=== PATIENT | male | born 1945 | race Caucasian/White ===

== ENCOUNTER 2016-11-01 10:04 | Outpatient (RCR) | payer MEDICARE ==
--- OUTSIDE RECORDS SUMMARY | 2016-08-30 16:33 | XMS REPORT | Continuity of Care Document ---
Author Author [facility] Organization [facility] Address Unknown Phone Unavailable Care Team Providers Care Survey Operations Director Name Role Phone Sherly Sanders III PCP [phone] Source Comments Some departments are not documenting in the electronic medical record. If you do not see the information that you expected, contact Release of Information in the Health Information Management department at [phone] for further assistance in locating additional records.[facility] Active Allergies and Adverse Reactions Allergen Noted Date Severity Reactions Comments Demerol 03/02/2010 HIVES, SWELLING Morphine 03/02/2010 ANAPHYLAXIS Current Medications Prescription Sig. Disp. Refills Start End Date Status Date DOCOSAHEXANOIC ACID/EPA Take 1,200 mg by mouth Active (FISH OIL PO) twice daily. mycophenolate mofetil Take 2 Caps by mouth 120 Cap 3 12/16/19 Active (CELLCEPT) 250 mg PO Twice Daily. 11 capsule Cholecalciferol (Vitamin Take 1 Cap by mouth Twice 60 Cap 3 12/16/19 Active D3) 1,000 unit PO Cap Daily. [address](+) Take 40 mg by mouth Active (PRILOSEC) 20 mg PO daily. capsule allopurinol (ZYLOPRIM) Take 100 mg by mouth Active 100 mg tablet daily. temazepam (RESTORIL) 15 Take 15 mg by mouth at Active mg capsule bedtime as needed. tacrolimus (PROGRAF) 1 mg Take 2 mg by mouth twice Active capsule daily. oxyCODone (ROXICODONE) 5 Take 5 mg by mouth every Active mg tablet 6 hours as needed warfarin (COUMADIN) 7.5 Take 7.5 mg by mouth at Active mg tablet bedtime daily. Docusate Calcium 50 mg Take 100 mg by mouth at Active cap bedtime daily. rOPINIRole (REQUIP) 1 mg Take 1 mg by mouth at Active tablet bedtime daily. cyanocobalamin(DIL) Inject to area(s) as Active (VITAMIN B-12) 100 mcg/mL directed every 30 days. insulin detemir(+) 34 U am and 16 U pm plus 4 box 3 03/22/20 Active (LEVEMIR FLEXPEN) 100 2 units to prime pen each 14 unit/mL (3 mL) injection time. pen insulin aspart (NOVOLOG) Inject 9 units with 75 mL 3 03/22/20 Active 100 unit/mL flexPEN breakfast, 9 units with 14 lunch, and 11 units with dinner. Plus 2 for every 40 >140 Max 80. ursodiol (ACTIGALL) 300 Take 300 mg by mouth Active mg capsule every 12 hours. WARFARIN SODIUM (WARFARIN Take 0.5 mg by mouth. 0.5 Active PO) mgMon, Wed, Fri, Sat, Sun HYDROCODONE BITARTRATE PO Take 325 mg by mouth. Active other medication 1 Dose. CHAZ COMFORT get Active for feet. blood sugar diagnostic 1 Strip by Test route Active (GLUCOSE METER TEST before meals and at STRIP) test strip bedtime. pregabalin (LYRICA) 75 mg Take 100 mg by mouth Active capsule twice daily. furosemide (LASIX) 40 mg Take 1 Tab by mouth twice 60 Tab 5 03/24/20 Active tablet daily. 16 ergocalciferol (VITAMIN Take 1 Cap by mouth every 4 Cap 2 06/08/20 08/25/20 D-2) 50,000 unit capsule 7 days for 12 doses. 16 16 Active Problems Problem Noted Date Shaking spells 12/17/2015 HTN (hypertension) 11/21/2012 Last Assessment & Plan: BP is good today. No change, cont the same. Peripheral neuropathy (HCC) 11/21/2012 Last Assessment & Plan: He has only been taking his gabapentin in the am. Suggested taking another pill at bedtime. Bedtime is the time when his neuropathy pain is the worst. CPPD (pseudo-gout) 08/09/2011 Cholangitis 03/15/2011 Biliary stent obstruction 03/15/2011 CMV (cytomegalovirus infection) (HCC) 01/31/2011 Atrial fibrillation (HCC) 01/31/2011 Status post liver transplant (HCC) 12/03/2010 Liver failure (HCC) 12/02/2010 GI bleeding 04/02/2010 CKD (chronic kidney disease) 04/02/2010 Pancytopenia 04/02/2010 Coronary artery bypass surgery 04/01/2010 CAD (coronary artery disease) 04/01/2010 Hyperlipidemia with target LDL less than 70 04/01/2010 Last Assessment & Plan: Formatting of this note may be different from the original. No recent FLP in system. Per PCP? Or Cardiology? Results for [facility] ( ) as of 11/01/2013 15:31 Ref. Range 03/30/2010 07:09 Cholesterol Latest Range: <200 MG/DL 167 Triglycerides Latest Range: <150 MG/DL 176 (H) HDL Latest Range: >40 MG/DL 21 (L) LDL Latest Range: <100 MG/DL 105 (H) VLDL No range found 35 Non HDL Cholesterol No range found 146 DM (diabetes mellitus) ([facility]) 04/01/2010 Last Assessment & Plan: He stopped Lantus because it burned too bad when he injected. He is willing to try Levemir if [facility] will [facility] it. Also, increase Novolog meal base. POC: NPH 34 in am or 14 at bedtime OR Levemir 30 in the am and 12 at bedtime Novolog 9 U + correction scale 3x/day immediately after you finish eating Resolved Problems Problem Noted Date Resolved Date Sepsis(995.91) 01/31/2011 10/29/2014 PRADO (nonalcoholic steatohepatitis) 04/01/2010 11/21/2012 Most Recent Encounters Date Type Specialty Providers Description 08/30/2016 Telephone Transplant Surgery Valdemar Phillips MD Other - lab orders 08/17/2016 Scan Only Transplant Surgery Valdemar Phillips MD 07/14/2016 Orders Only Transplant Surgery Justine Reyes Liver replaced by transplant ([facility]) 07/13/2016 Orders Only Transplant Surgery Soo Callaway BSN Liver replaced by transplant ([facility]) (Primary Dx) 06/25/2016 Orders Only Transplant Surgery Batsheva Guido Disorder of bone density and structure, unspecified ; Osteoporosis screening; Vitamin D deficiency 06/22/2016 Documentation Transplant Surgery Batsheva Guido 06/22/2016 Telephone Transplant Surgery Valdemar Phillips MD Other - return call 06/17/2016 Orders Only Transplant Surgery Carlotta De La Torre Liver replaced by transplant ([facility]) 06/16/2016 Documentation Transplant Surgery Batsheva Guido 06/10/2016 Telephone Transplant Surgery Valdemar Phillips MD Other - [facility] 06/08/2016 Telephone Transplant Surgery Soo Callaway BSN Medication Dose Change 06/08/2016 Refill Transplant Surgery Soo Callaway BSN Immunizations Name Dates Previously Given Next Due Tdap Vaccine 07/02/2010 Social History Tobacco Use Types Packs/Day Years Used Date Former Smoker Cigarettes 1 40 Smokeless Tobacco: Never Used Tobacco Cessation: Counseling Given: No Comments: quit in 1999 Alcohol Use Drinks/Week oz/Week Comments No Last Filed Vital Signs Vital Sign Reading Time Taken Blood Pressure 144/71 05/10/2016 10:59 AM CDT Pulse 94 05/10/2016 10:59 AM CDT Temperature 36.7 C (98 F) 05/10/2016 10:59 AM CDT Respiratory Rate 20 05/10/2016 10:59 AM CDT Height 1.829 m (6') 05/10/2016 10:59 AM CDT Weight 112.492 kg (248 lb) 05/10/2016 10:59 AM CDT Body Mass Index 33.63 05/10/2016 10:59 AM CDT Oxygen Saturation 95% 05/10/2016 10:59 AM CDT Plan of Care Date Type Specialty Providers Description 12/21/2016 Appointment Nephrology Justina Rueda MD [address] [facility] [address] [place] [address] [phone] (Fax) 05/23/2017 Appointment Transplant Surgery Valdemar Phillips MD [address] [facility] [id number] [place] [address] [phone] (Fax) Health Maintenance Due Date Last Done Comments Shingles Vaccine 2005 Prevnar/Pneumovax (#1) 2010 Physical (Comprehensive) 08/28/2015 08/28/2014 (Previously completed), Exam 12/09/2010 Influenza Vaccine 07/15/2016 08/14/2015 Microalbumin 07/29/2016 07/29/2015, 10/31/2014, 10/31/2014 Hba1c 09/04/2016 03/05/2016, 07/28/2015, 10/29/2014 Additional history exists Dilated Eye Exam 01/12/2017 01/13/2016, 11/28/2013 (Previously completed) Foot Exam 03/05/2017 03/05/2016, 07/28/2015, 10/29/2014 Tetanus Vaccine 07/02/2020 07/02/2010 Colorectal Cancer 11/08/2020 11/08/2010 Screening Hepatitis C Screening Completed 03/30/2010, 03/30/2010, 01/01/2010 Additional history exists Pertussis Vaccine Completed 07/02/2010 Results from Last 3 Months PROTIME INR (PT) (07/12/2016 10:12 AM) Component Value Range Protime 32.9 (H) 12.2-14.7 SEC INR 3.2 (H) 0.8-1.4 Specimen Blood Narrative Outside Lab Verified by Blank Walters on 07/12/2016. BONE DENSITY SPINE/HIP (06/17/2016 11:08 AM)PHOSPHORUS (06/15/2016 2:24 PM) Component Value Range Phosphorus 3.0 2.3-4.7 MG/DL Specimen Blood Narrative Outside Lab Verified by Carlotta De La Torre on 06/17/2016. MAGNESIUM (06/15/2016 2:24 PM) Component Value Range Magnesium 1.5 (L) 1.8-2.4 MG/DL Specimen Blood Narrative Outside Lab Verified by Carlotta De La Torre on 06/17/2016. COMPREHENSIVE METABOLIC PANEL (06/15/2016 2:24 PM) Component Value Range Sodium 141 135-145 MMOL/L Potassium 4.2 3.6-5.0 MMOL/L Chloride 103 98-107 MMOL/L CO2 29 21-32 MMOL/L Anion Gap 9 5-14 MMOL/L Blood Urea Nitrogen 23 (H) 7-18 MG/DL Creatinine 1.93 (H) 0.60-1.30 MG/DL eGFR Non 34 mL/min/1.73 M2 Glucose 143 (H) 70-105 H Calcium 9.1 8.5-10.1 MG/DL Total Bilirubin 1.3 (H) 0.1-1.0 H Alk Phosphatase 87 40-136 U/L AST (SGOT) 8 5-34 U/L ALT (SGPT) 7 0-55 U/L Total Protein 6.4 6.4-8.2 G/DL Albumin 4.2 3.2-4.5 G/DL Specimen Blood Narrative Outside Lab Verified by Carlotta De La Torre on 06/17/2016. CBC AND DIFF (06/15/2016 2:24 PM) Component Value Range White Blood Cells 6.5 4.3-11.0 10^3/uL RBC 5.22 4.35-5.85 10^6/uL Hemoglobin 13.3 13.3-17.7 G/DL Hematocrit 43 40-54 MCV 83 80-99 FL MCH 26 25-34 PG MCHC 31 (L) 32-36 G/DL RDW 15.9 (H) 10.0-14.5 % Platelet Count 162 130-400 10^3/uL Neutrophils 78 (H) 42-75 % Lymphocytes 13 12-44 % Monocytes 7 0-12 % Eosinophil 1 0-10 % Basophil 1 0-10 % Absolute Neutrophil Count 5.1 1.8-7.8 Absolute Lymph Count 0.8 (L) 1.0-4.0 Absolute Monocyte Count 0.5 0.0-1.0 Absolute Eosinophil Count 0.1 0.0-0.3 10^3/uL Absolute Basophil Count 0.0 0.0-0.1 10^3/uL Specimen Blood Narrative Outside Lab Verified by Carlotta De La Torre on 06/17/2016. GGTP (06/15/2016 2:24 PM) Component Value Range GGTP 27 0-65 U/L Specimen Blood Narrative Outside Lab Verified by Carlotta De La Torre on 06/17/2016. TACROLIMUS LEVEL(FK506) (06/15/2016 2:24 PM) Component Value Range Tacrolimus 9.2 ng/mL Specimen Blood Narrative Outside Lab Verified by Carlotta De La Torre on 06/17/2016.
[2016-08-30 16:39] LABS: BASOPHILS % (AUTO) 0 % (0-10); EOSINOPHILS # (AUTO) 0.1 10^3/uL (0.0-0.3); EOSINOPHILS % (AUTO) 2 % (0-10); LYMPHOCYTES % (AUTO) 23 % (12-44); MEAN CORPUSCULAR HEMOGLOBIN 26 PG (25-34); MEAN CORPUSCULAR HGB CONC 32 G/DL (32-36); MEAN CORPUSCULAR VOLUME 82 FL (80-99); MEAN PLATELET VOLUME 10.4 FL (7.4-10.4); MONOCYTES # (AUTO) 0.4 X 10^3 (0.0-1.0); MONOCYTES % (AUTO) 9 % (0-12); NEUTROPHILS % (AUTO) 66 % (42-75); PLATELET COUNT 179 10^3/uL (130-400); RED BLOOD COUNT 5.01 10^6/uL (4.35-5.85); RED CELL DISTRIBUTION WIDTH 15.2 % (10.0-14.5); WHITE BLOOD COUNT 4.6 10^3/uL (4.3-11.0)
[2016-08-30 16:58] LABS: ALANINE AMINOTRANSFERASE < 6 U/L (0-55); ALBUMIN 4.3 G/DL (3.2-4.5); ANION GAP 10 MMOL/L (5-14); ASPARTATE AMINO TRANSFERASE 11 U/L (5-34); BILIRUBIN,TOTAL 0.8 MG/DL (0.1-1.0); BLOOD UREA NITROGEN 27 MG/DL (7-18); BUN/CREATININE RATIO 14; CALCIUM 9.5 MG/DL (8.5-10.1); CARBON DIOXIDE 31 MMOL/L (21-32); CHLORIDE 100 MMOL/L (98-107); CREATININE SERUM 1.92 MG/DL (0.60-1.30); GFR ESTIMATED 35; GLUCOSE 116 MG/DL (70-105); MAGNESIUM 1.6 MG/DL (1.8-2.4); PHOSPHORUS 3.2 MG/DL (2.3-4.7); POTASSIUM 4.2 MMOL/L (3.6-5.0); SODIUM 141 MMOL/L (135-145); TOTAL PROTEIN 6.8 G/DL (6.4-8.2)
[2016-09-01 08:09] LABS: FK506 11.9 ng/mL
[~2016-11-01 10:04] MED LIST: ACYC-109 PO; AGM875T PO; ALLP100T PO; AMLO10TA82 PO; AMLO5TAB2 PO; AMOX-355 PO; ASP81CT PO; ASP81TEC; CEFD300C3 PO; CEPH500C PO; CEPH500T PO; CHOL100011 PO; CHOL10003 PO; CHOL200035 PO; COLC0.6C3 PO; DILT240C90 PO; DOCU-161 PO; DOCU50CA2 PO; ENAL20TA; ENAL20TA PO; FERR-57 PO; FISH OIL 1,2001 EAC1 PO; FLUT9.9S NS; FURO20TA4 PO; FURO40TA4 PO; GABA-490 PO; GABA400T PO; GABA800T2 PO; GBPN400C PO; GEMF600T3; GEMF600T3 PO; GLIM4TAB; GLIM4TAB PO; HCT25T; HYDR-2890 PO; HYDR1CAP2; HYDR1TAB PO; HYDR1TAB86 PO; INSASP10V SQ; INSU100I14 SQ; INSU100I16 SQ; INSU100V16 SQ; Levofloxacin PO; MAGN400C PO; MAGN400T6 PO; METF-380; METF-380 PO; METO100T2 PO; METO50TA7; METOPROLOL PO; MTC10T; MTC5T; MTP25TSR PO; MTP50T; MTP50T PO; NADO20TA PO; NPH,100V SQ; NPH,100V11 SC; NPH,100V8 SQ; NR-TACRO1 PO; OMEG1CAP51; OMEG1CAP51 PO; OMEP-10; OMEP-10 PO; OMEP20TA2 PO; OMEP20TA33 PO; OMEP40CA36 PO; OMG1KC; OXC5T PO; OXYC-309 PO; OXYC5TAB71 PO; PRAV40TA; PRAV40TA PO; PRD5T PO; PREG100C PO; PREG75CA PO; ROPI1TAB2 PO; SENN-35 PO; SENN1TAB76 PO; SULF1TAB38 PO; TACR0.5C PO; TACR1CAP PO; TEMA15CA54 PO; TMZP15C PO; TRIA1TAB2; TRIAM; URSO250T11 PO; URSO300C3 PO; URSO300C9 PO; VIT D; WARF7.5T PO; WRF2.5T PO; WRF5T PO; [UNRECOGNIZED DRUG - CODE] PO; [UNRECOGNIZED DRUG - OTHER]; [UNRECOGNIZED DRUG - OTHER] PO
== END 2016-11-28 | disposition home or self-care (01) ==
LOC: LAB 10:04
PROVIDERS: ATTEND Internal Medicine
DX: Z94.4 Liver transplant status (principal); Z79.899 Other long term (current) drug therapy
CPT/HCPCS: 36415; 80053; 80197; 82977; 83735; 84100; 85025

== ENCOUNTER 2017-01-19 06:10 | Outpatient (RCR) | payer MEDICARE ==
--- OUTSIDE RECORDS SUMMARY | 2016-11-01 10:25 | XMS REPORT | Continuity of Care Document ---
Author Author [facility] Organization [facility] Address Unknown Phone Unavailable Care Team Providers Care Water Mechanic Name Role Phone Sherly Sanders III PCP [phone] Source Comments Some departments are not documenting in the electronic medical record. If you do not see the information that you expected, contact Release of Information in the Health Information Management department at [phone] for further assistance in locating additional records.[facility] Active Allergies and Adverse Reactions Allergen Noted Date Severity Reactions Comments Demerol 03/02/2010 HIVES, SWELLING Morphine 03/02/2010 ANAPHYLAXIS Current Medications Prescription Sig. Disp. Refills Start End Date Status Date mycophenolate mofetil Take 2 Caps by mouth [...] 1 mg Take 1 mg by mouth twice Active tablet daily. cyanocobalamin(DIL) Inject to area(s) as Active [...] mouth Active mg capsule every 12 hours. HYDROCODONE BITARTRATE PO Take 325 mg by mouth. Active other medication 1 Dose. CHAZ COMFORT get Active for feet. blood sugar diagnostic Use 1 Strip as directed Active (GLUCOSE METER TEST before meals and at STRIP) test strip bedtime. accuchek wild pregabalin (LYRICA) 75 mg Take 100 mg by mouth Active capsule twice daily. furosemide (LASIX) 40 mg Take 1 Tab by mouth twice 60 Tab 5 03/24/20 Active tablet daily. 16 Active Problems Problem Noted Date Shaking [...] No range found 146 DM (diabetes mellitus) (HCC) 04/01/2010 Last Assessment & Plan: He stopped [...] Recent Encounters Date Type Specialty Providers Description 10/30/2016 Telephone Transplant Surgery Chana Saba RN Other 10/04/2016 Telephone Endocrinology, Metabolism Dayna Garduno PA-C Other & Genetics 09/06/2016 Office Visit Endocrinology, Metabolism Dayna Garduno PA- C Type 2 diabetes mellitus & Genetics without complication, with long-term current use of insulin (HCC) (Primary Dx); Essential hypertension with goal blood pressure less than 140/90; Hyperlipidemia with target LDL less than 70; Status post liver transplant 09/01/2016 Orders Only Transplant Surgery Justine Reyes Liver replaced by transplant (HCC) 09/01/2016 Orders Only Transplant Surgery Blank Brenner Liver replaced by transplant (HCC) 09/01/2016 Orders Only Transplant Surgery Soo Callaway BSN Liver replaced by transplant (HCC) (Primary Dx) 09/01/2016 Orders Only Endocrinology, Metabolism Justine Reyes Liver replaced by & Genetics transplant ([facility]) (Primary Dx); Type 2 diabetes mellitus without complication ([facility]); Hypercalcemia 08/30/2016 Telephone Transplant Surgery Valdemar Phillips MD Other - lab orders 08/17/2016 Scan Only Transplant Surgery Valdemar Phillips MD Immunizations Name Dates Previously Given Next Due Tdap Vaccine 07/02/2010 Social History Tobacco Use Types Packs/Day Years Used Date Former Smoker Cigarettes 1 40 Smokeless Tobacco: Never Used Tobacco Cessation: Counseling Given: No Comments: quit in 1999 Alcohol Use Drinks/Week oz/Week Comments No Last Filed Vital Signs Vital Sign Reading Time Taken Blood Pressure 129/72 09/06/2016 9:08 AM CDT Pulse 92 09/06/2016 9:08 AM CDT Temperature 36.7 C (98 F) 05/10/2016 10:59 AM CDT Respiratory Rate 20 05/10/2016 10:59 AM CDT Height 1.829 m (6') 09/06/2016 9:08 AM CDT Weight 111.041 kg (244 lb 12.8 09/06/2016 9:08 AM CDT oz) Body Mass Index 33.19 09/06/2016 9:08 AM CDT Oxygen Saturation 95% 05/10/2016 10:59 AM CDT Plan of Care Date Type Specialty Providers Description 12/21/2016 Appointment Nephrology Justina Rueda MD [address] [facility] [address] [place] [address] [phone] (Fax) 03/04/2017 Appointment Endocrinology, Metabolism Dayna Garduno PA- C & Genetics [address] [facility] [address] [place] [address] [phone] (Fax) 05/23/2017 Appointment Transplant Surgery Valdemar Phillips MD [address] [employer] [facility] [address] [place] [address] [phone] (Fax) Health Maintenance Due Date Last Done Comments Shingles Vaccine 2005 Prevnar/Pneumovax (#1) 2010 Physical (Comprehensive) 08/28/2015 08/28/2014 (Previously completed), Exam 12/09/2010 Microalbumin 07/29/2016 07/29/2015, 10/31/2014, 10/31/2014 Hba1c 03/07/2017 09/06/2016, 03/05/2016, 07/28/2015 Additional history exists Dilated Eye Exam 03/14/2017 03/14/2016, 01/13/2016, 11/28/2013 (Previously completed) Influenza Vaccine 09/05/2017 08/14/2015 Postponed from 07/15/2016 (Patient declined) Foot Exam 09/06/2017 09/06/2016, 03/05/2016, 07/28/2015 Additional history exists Tetanus Vaccine 07/02/2020 07/02/2010 Colorectal Cancer 11/08/2020 11/08/2010 Screening Hepatitis C Screening Completed 03/30/2010, 03/30/2010, 01/01/2010 Additional history exists Pertussis Vaccine Completed 07/02/2010 Procedures from Last 3 Months Procedure Name Priority Date/Time Associated Diagnosis Comments GLUCOSE METER DOWNLOAD Routine 09/06/2016 Type 2 diabetes mellitus 12:00 AM CDT without complication, with long-term current use of insulin (HCC) Results from Last 3 Months POC HEMOGLOBIN A1C (09/06/2016 9:20 AM) Component Value Range Poc Hemoglobin A1C 6.4 Specimen Blood, capillary - Blood POC GLUCOSE QUANTITATIVE BLOOD (09/06/2016 9:20 AM) Component Value Range Glucose, POC 163 Specimen Blood, capillary GLUCOSE METER DOWNLOAD (09/06/2016)TACROLIMUS LEVEL(FK506) (08/30/2016 3:30 PM) Component Value Range Tacrolimus 11.9 ng/mL Specimen Blood Narrative Outside Lab Verified by Blank Walters on 09/01/2016. GGTP (08/30/2016 3:30 PM) Component Value Range GGTP 35 0-65 U/L Specimen Blood Narrative Outside Lab Verified by Blank Walters on 09/01/2016. PROTIME INR (PT) (08/30/2016 3:30 PM) Component Value Range Protime 22.3 (H) 12.2-14.7 SEC INR 2.0 (H) 0.8-1.4 Specimen Blood Narrative Outside Lab Verified by Justine Reyes on 09/01/2016. PHOSPHORUS (08/30/2016 3:30 PM) Component Value Range Phosphorus 3.2 2.3-4.7 MG/DL Specimen Blood Narrative Outside Lab Verified by Justine Reyes on 09/01/2016. MAGNESIUM (08/30/2016 3:30 PM) Component Value Range Magnesium 1.6 (L) 1.8-2.4 MG/DL Specimen Blood Narrative Outside Lab Verified by Justine Reyes on 09/01/2016. COMPREHENSIVE METABOLIC PANEL (08/30/2016 3:30 PM) Component Value Range Sodium 141 135-145 MMOL/L Potassium 4.2 3.6-5.0 MMOL/L Chloride 100 98-107 MMOL/L CO2 31 21-32 MMOL/L Anion Gap 10 5-14 MMOL/L Blood Urea Nitrogen 27 (H) 7-18 MG/DL Creatinine 1.92 (H) 0.60-1.30 MG/DL eGFR Non 35 mL/min/1.73 M2 Glucose 116 (H) 70-105 H Calcium 9.5 8.5-10.1 MG/DL Total Bilirubin 0.8 0.1-1.0 MG/DL Alk Phosphatase 83 40-136 U/L AST (SGOT) 11 5-34 U/L ALT (SGPT) <6 0-55 U/L Total Protein 6.8 6.4-8.2 G/DL Albumin 4.3 3.2-4.5 G/DL Specimen Blood Narrative Outside Lab Verified by Justine Reyes on 09/01/2016. CBC AND DIFF (08/30/2016 3:30 PM) Component Value Range White Blood Cells 4.6 4.3-11.0 10^3/uL RBC 5.01 4.35-5.85 10^6/uL Hemoglobin 12.9 (L) 13.3-17.7 G/DL Hematocrit 41 40-54 MCV 82 80-99 FL MCH 26 25-34 PG MCHC 32 32-36 G/DL RDW 15.2 (H) 10.0-14.5 % Platelet Count 179 130-400 10^3/uL Neutrophils 66 42-75 % Lymphocytes 23 12-44 % Monocytes 9 0-12 % Eosinophil 2 0-10 % Basophil 0 0-10 % Absolute Neutrophil Count 3.0 1.8-7.8 Absolute Lymph Count 1.0 1.0-4.0 Absolute Monocyte Count 0.4 0.0-1.0 Absolute Eosinophil Count 0.1 0.0-0.3 10^3/uL Absolute Basophil Count 0.0 0.0-0.1 10^3/uL Specimen Blood Narrative Outside Lab Verified by Justine Reyes on 09/01/2016.
[2016-11-01 10:31] LABS: INR 2.1 (0.8-1.4); PROTHROMBIN TIME PATIENT 23.3 SEC (12.2-14.7)
[2017-01-03 07:23] LABS: INR 1.8 (0.8-1.4)
[2017-01-12 07:34] LABS: INR 1.6 (0.8-1.4); PROTHROMBIN TIME PATIENT 19.2 SEC (12.2-14.7)
[2017-01-19 06:31] LABS: INR 1.9 (0.8-1.4); PROTHROMBIN TIME PATIENT 21.8 SEC (12.2-14.7)
[2017-01-26 07:35] LABS: INR 3.1 (0.8-1.4); PROTHROMBIN TIME PATIENT 31.8 SEC (12.2-14.7)
== END 2017-01-30 | disposition home or self-care (01) ==
LOC: LAB 06:10
PROVIDERS: ATTEND Internal Medicine Cardiovascular Disease
DX: Z51.81 Encounter for therapeutic drug level monitoring (principal); Z79.01 Long term (current) use of anticoagulants
CPT/HCPCS: 36415; 85610

== ENCOUNTER 2017-02-03 11:36 | Outpatient (RCR) | payer MEDICARE ==
[2017-01-03 07:15] LABS: BASOPHILS % (AUTO) 0 % (0-10); EOSINOPHILS # (AUTO) 0.1 10^3/uL (0.0-0.3); EOSINOPHILS % (AUTO) 2 % (0-10); LYMPHOCYTES # (AUTO) 0.9 X 10^3 (1.0-4.0); LYMPHOCYTES % (AUTO) 16 % (12-44); MEAN CORPUSCULAR HEMOGLOBIN 26 PG (25-34); MEAN CORPUSCULAR HGB CONC 32 G/DL (32-36); MEAN CORPUSCULAR VOLUME 83 FL (80-99); MONOCYTES # (AUTO) 0.5 X 10^3 (0.0-1.0); MONOCYTES % (AUTO) 9 % (0-12); NEUTROPHILS # (AUTO) 4.4 X 10^3 (1.8-7.8); NEUTROPHILS % (AUTO) 74 % (42-75); PLATELET COUNT 143 10^3/uL (130-400); RED BLOOD COUNT 5.16 10^6/uL (4.35-5.85); RED CELL DISTRIBUTION WIDTH 15.8 % (10.0-14.5)
--- OUTSIDE RECORDS SUMMARY | 2017-01-03 07:19 | XMS REPORT | Continuity of Care Document ---
Author Author [facility] Organization [facility] Address Unknown Phone Unavailable Care Team Providers Care Journalism Professor Name Role Phone Sherly Sanders III PCP [phone] Source Comments Some departments are not documenting in the electronic medical record. If you do not see the information that you expected, contact Release of Information in the Health Information Management department at [phone] for further assistance in locating additional records.[facility] Active Allergies and Adverse Reactions [...] No range found 146 DM (diabetes mellitus) ([facility]) 04/01/2010 Last Assessment & Plan: He stopped Lantus because it burned too bad when he injected. He is willing to try Levemir if [facility] will pay for it. Also, increase Novolog meal base. POC: NPH 34 in am or 14 at bedtime OR Levemir 30 in the am and 12 at bedtime Novolog 9 U + correction scale 3x/day immediately after you finish eating Resolved Problems Problem Noted Date Resolved Date Sepsis(995.91) 01/31/2011 10/29/2014 PRADO (nonalcoholic steatohepatitis) 04/01/2010 11/21/2012 Most Recent Encounters Date Type Specialty Providers Description 12/01/2016 Telephone Transplant Surgery John Garcia, NEMO Labs Only 11/03/2016 Orders Only Endocrinology, Metabolism Justine Reyes Liver replaced by & Genetics transplant ([facility]) 10/30/2016 Telephone Transplant Surgery Chana Saba, NEMO Other 10/04/2016 Telephone Endocrinology, Metabolism Dayna Garduno PA-C Other & Genetics Immunizations Name Dates Previously Given Next Due [...] of Care Date Type Specialty Providers Description 03/04/2017 Appointment Endocrinology, Metabolism Dayna Garduno PA- C & Genetics [address] [facility] [address] [place] [address] [phone] (Fax) 05/23/2017 Appointment Transplant Surgery Valdemar Phillips MD [address] [facility] [address] [place] [address] [phone] (Fax) Health Maintenance Due Date Last Done [...] from Last 3 Months PROTIME INR (PT) (11/01/2016 10:06 AM) Component Value Range Protime 23.3 (H) 12.2-14.7 SEC INR 2.1 (H) 0.8-1.4 Specimen Blood Narrative Outside Lab Verified by Justine Reyes on 11/03/2016.
[2017-01-03 07:33] LABS: ALANINE AMINOTRANSFERASE < 6 U/L (0-55); ALBUMIN 4.3 G/DL (3.2-4.5); ANION GAP 13 MMOL/L (5-14); ASPARTATE AMINO TRANSFERASE 8 U/L (5-34); BILIRUBIN,TOTAL 1.7 MG/DL (0.1-1.0); BLOOD UREA NITROGEN 26 MG/DL (7-18); BUN/CREATININE RATIO 13; CALCIUM 9.1 MG/DL (8.5-10.1); CARBON DIOXIDE 29 MMOL/L (21-32); CHLORIDE 96 MMOL/L (98-107); CREATININE SERUM 1.94 MG/DL (0.60-1.30); GFR ESTIMATED 34; GLUCOSE 161 MG/DL (70-105); MAGNESIUM 1.7 MG/DL (1.8-2.4); PHOSPHORUS 3.1 MG/DL (2.3-4.7); POTASSIUM 4.2 MMOL/L (3.6-5.0); SODIUM 138 MMOL/L (135-145); TOTAL PROTEIN 6.5 G/DL (6.4-8.2)
[2017-01-04 07:38] LABS: FK506 8.9 ng/mL
[2017-02-03 12:15] LABS: INR 3.1 (0.8-1.4); PROTHROMBIN TIME PATIENT 31.8 SEC (12.2-14.7)
== END 2017-04-03 | disposition home or self-care (01) ==
LOC: LAB 11:36
PROVIDERS: ATTEND Internal Medicine
DX: Z94.4 Liver transplant status (principal); Z79.899 Other long term (current) drug therapy
CPT/HCPCS: 36415; 80053; 80197; 82977; 83735; 84100; 85025; 85610

== ENCOUNTER 2017-05-11 07:29 | Outpatient (RCR) | payer MEDICARE ==
[2017-05-11 08:01] LABS: BASOPHILS % (AUTO) 0 % (0-10); EOSINOPHILS # (AUTO) 0.1 10^3/uL (0.0-0.3); EOSINOPHILS % (AUTO) 1 % (0-10); LYMPHOCYTES # (AUTO) 0.6 X 10^3 (1.0-4.0); LYMPHOCYTES % (AUTO) 12 % (12-44); MEAN CORPUSCULAR HEMOGLOBIN 26 PG (25-34); MEAN CORPUSCULAR HGB CONC 31 G/DL (32-36); MEAN CORPUSCULAR VOLUME 82 FL (80-99); MEAN PLATELET VOLUME 10.1 FL (7.4-10.4); MONOCYTES # (AUTO) 0.3 X 10^3 (0.0-1.0); MONOCYTES % (AUTO) 6 % (0-12); NEUTROPHILS # (AUTO) 4.1 X 10^3 (1.8-7.8); NEUTROPHILS % (AUTO) 80 % (42-75); PLATELET COUNT 137 10^3/uL (130-400); RED BLOOD COUNT 5.18 10^6/uL (4.35-5.85); RED CELL DISTRIBUTION WIDTH 15.7 % (10.0-14.5); WHITE BLOOD COUNT 5.1 10^3/uL (4.3-11.0)
[2017-05-11 08:24] LABS: ALBUMIN 4.2 GM/DL (3.2-4.5); BILIRUBIN,TOTAL 1.3 MG/DL (0.1-1.0); CALCIUM 9.5 MG/DL (8.5-10.1); CREATININE SERUM 2.14 MG/DL (0.60-1.30); MAGNESIUM 1.5 MG/DL (1.8-2.4); PHOSPHORUS 3.1 MG/DL (2.3-4.7); POTASSIUM 4.3 MMOL/L (3.6-5.0); TOTAL PROTEIN 6.8 GM/DL (6.4-8.2)
[2017-05-12 06:54] LABS: FK506 6.9 ng/mL
== END 2017-08-09 | disposition home or self-care (01) ==
LOC: LAB 07:29
PROVIDERS: ATTEND Internal Medicine
DX: Z94.4 Liver transplant status (principal); Z79.899 Other long term (current) drug therapy
CPT/HCPCS: 36415; 80053; 80197; 82977; 83735; 84100; 85025

== ENCOUNTER 2017-05-11 07:46 | Outpatient (RCR) | payer MEDICARE ==
[2017-04-11 15:27] LABS: INR 4.2 (0.8-1.4); PROTHROMBIN TIME PATIENT 40.8 SEC (12.2-14.7)
[2017-04-29 11:46] LABS: INR 1.9 (0.8-1.4); PROTHROMBIN TIME PATIENT 21.5 SEC (12.2-14.7)
[2017-05-11 08:27] LABS: INR 2.5 (0.8-1.4); PROTHROMBIN TIME PATIENT 26.6 SEC (12.2-14.7)
[2017-08-31] MEDS ORDERED: FURO20TA4 PO (13:59)
[2017-08-31] MEDS ORDERED: HYDR-3820 PO (13:59)
[2017-08-31] MEDS ORDERED: OXYC-529 PO (13:59)
[2017-08-31] MEDS ORDERED: NF-MYC250C PO (13:59)
[2017-08-31] MEDS ORDERED: ALLO100T PO (13:59)
[2017-08-31] MEDS ORDERED: WARF-48 PO (13:59)
[2017-08-31] MEDS ORDERED: WARF7.5T49 PO (13:59)
[2017-08-31] MEDS ORDERED: TEMA15CA PO (13:59)
[2017-08-31] MEDS ORDERED: SENN1TAB33 PO (13:59)
[2017-08-31] MEDS ORDERED: INSU100V16 SQ (14:06)
[2017-08-31] MEDS ORDERED: INSU100I29 SQ ×2 (14:06)
[2017-08-31] MEDS ORDERED: INSU100I14 SQ (14:06)
== END 2017-07-10 | disposition home or self-care (01) ==
LOC: LAB 07:46
PROVIDERS: ATTEND Internal Medicine Cardiovascular Disease
DX: I48.0 Paroxysmal atrial fibrillation (principal); Z79.01 Long term (current) use of anticoagulants
CPT/HCPCS: 36415; 85610

== ENCOUNTER → 2017-07-01 | Outpatient (CLI) | payer MEDICARE ==
[~2017-07-01] MED LIST changes: +ALLO100T PO; +HYDR-3820 PO; +INSU100I29 SQ; +NF-MYC250C PO; +OXYC-529 PO; +SENN1TAB33 PO; +TEMA15CA PO; +WARF-48 PO; +WARF7.5T49 PO
--- NOTE | 2017-07-01 10:04 | Diagnostic Imaging Report ---
PROCEDURE: US Abdomen, limited. TECHNIQUE: Multiple realtime grayscale images were obtained over the abdomen in various projections. INDICATION: Ascites. There are no recent abdominal ultrasound examinations available for comparison. On this exam, there is a small collection of fluid along the left flank. The skin over the fluid was marked. IMPRESSION: There is a small collection of fluid in the left upper quadrant. Dictated by: Dictated on workstation # [id number]
== END ==
LOC: RAD 08:52
PROVIDERS: ATTEND Internal Medicine
DX: R18.8 Other ascites (principal)
CPT/HCPCS: 76705; 93306

== ENCOUNTER → 2017-07-04 | Outpatient (CLI) | payer MEDICARE ==
[~2017-07-04] MED LIST changes: -ALLO100T PO; -HYDR-3820 PO; -INSU100I29 SQ; -NF-MYC250C PO; -OXYC-529 PO; -SENN1TAB33 PO; -TEMA15CA PO; -WARF-48 PO; -WARF7.5T49 PO
[2017-07-04 11:57] LABS: BASOPHILS % (AUTO) 1 % (0-10); EOSINOPHILS # (AUTO) 0.1 10^3/uL (0.0-0.3); EOSINOPHILS % (AUTO) 2 % (0-10); LYMPHOCYTES % (AUTO) 16 % (12-44); MEAN CORPUSCULAR HEMOGLOBIN 25 PG (25-34); MEAN CORPUSCULAR HGB CONC 31 G/DL (32-36); MEAN CORPUSCULAR VOLUME 82 FL (80-99); MEAN PLATELET VOLUME 9.8 FL (7.4-10.4); MONOCYTES # (AUTO) 0.5 X 10^3 (0.0-1.0); MONOCYTES % (AUTO) 8 % (0-12); NEUTROPHILS # (AUTO) 4.5 X 10^3 (1.8-7.8); NEUTROPHILS % (AUTO) 74 % (42-75); PLATELET COUNT 178 10^3/uL (130-400); RED BLOOD COUNT 5.29 10^6/uL (4.35-5.85); RED CELL DISTRIBUTION WIDTH 15.8 % (10.0-14.5); WHITE BLOOD COUNT 6.1 10^3/uL (4.3-11.0)
[2017-07-04 12:10] LABS: ALANINE AMINOTRANSFERASE < 6 U/L (0-55); ALBUMIN 4.1 GM/DL (3.2-4.5); ANION GAP 10 MMOL/L (5-14); ASPARTATE AMINO TRANSFERASE 10 U/L (5-34); BILIRUBIN,TOTAL 1.4 MG/DL (0.1-1.0); BLOOD UREA NITROGEN 20 MG/DL (7-18); BUN/CREATININE RATIO 11; CALCIUM 9.4 MG/DL (8.5-10.1); CARBON DIOXIDE 30 MMOL/L (21-32); CHLORIDE 99 MMOL/L (98-107); CREATININE SERUM 1.81 MG/DL (0.60-1.30); GFR ESTIMATED 37; GLUCOSE 137 MG/DL (70-105); POTASSIUM 4.1 MMOL/L (3.6-5.0); SODIUM 139 MMOL/L (135-145); TOTAL PROTEIN 6.3 GM/DL (6.4-8.2)
[2017-07-05 10:45] LABS: FK506 8.8 ng/mL
== END ==
LOC: RAD 11:36
PROVIDERS: ATTEND Internal Medicine
DX: Z94.4 Liver transplant status (principal)
CPT/HCPCS: 36415; 80053; 80197; 82977; 85025

== ENCOUNTER 2017-08-26 14:00 | Outpatient (CLI) | payer MEDICARE | END 2017-08-26 14:47 | disposition home or self-care (01) | LOC: SLEEP 14:00 | PROVIDERS: ATTEND Internal Medicine | DX: G47.33 Obstructive sleep apnea (adult) (pediatric) (principal); I10 Essential (primary) hypertension; G47.10 Hypersomnia, unspecified ==

== ENCOUNTER → 2017-08-29 | Outpatient (CLI) | payer MEDICARE ==
[~2017-08-29] MED LIST changes: +ALLO100T PO; +HYDR-3820 PO; +INSU100I29 SQ; +NF-MYC250C PO; +SENN1TAB33 PO; +TEMA15CA PO; +WARF-48 PO; +WARF7.5T49 PO
--- NOTE | 2017-08-29 17:07 | Diagnostic Imaging Report ---
PROCEDURE: US Abdomen, limited. TECHNIQUE: Multiple realtime grayscale images were obtained over the abdomen in various projections. INDICATION: Abdominal fullness. Shortness of breath. FINDINGS: There is moderate amount of ascites. In the left lower quadrant area with moderate depth pocket was marked for paracentesis. IMPRESSION: Moderate ascites. Dictated by: Dictated on workstation # [id number]
== END ==
LOC: RAD 15:08
PROVIDERS: ATTEND Internal Medicine
DX: R18.8 Other ascites (principal)
CPT/HCPCS: 76705

== ENCOUNTER → 2017-08-31 | Outpatient (CLI) | payer MEDICARE ==
[~2017-08-31] VITALS: Ht 182.9 cm; Wt 104.8 kg
[2017-08-31 10:30] VITALS: BP 96/68
--- NOTE | 2017-08-31 13:46 | Operative Report ---
Operative Report Date of Procedure/Surgery Aug 31, 2017 Surgeon (s) WILLIAM BONILLA MD Customer Quality Specialist (s): not applicable Post-Operative Diagnosis Ascites Procedure Performed Paracentesis Description of Procedure Estimated blood loss (mL): none Specimen(s) collected/removed None Description of the Procedure This gentleman underwent liver transplantation about 2 years ago and has done well. He was found to have symptomatic ascites and therefore paracentesis was felt to be reasonable. The area of maximal ascitic fluid was marked by ultrasound guidance over the left lower quadrant. After adequate antiseptic preparation, local anesthesia was achieved using 1 percent lidocaine. Using the safeT-centesis device, peritoneal cavity was entered safely and ascites fluid encountered. It was connected to a dependent drainage system and a dressing applied. He tolerated the procedure reasonably well Findings of the Procedure See procedure report Allergies and Home Medications Allergies Coded Allergies: meperidine (Verified Allergy, Unknown, 06/26/14) morphine (Verified Allergy, Unknown, 06/26/14) Home Medications Allopurinol 100 Mg Tab, 100 MG PO HS, (Reported) Amoxicillin/Potassium Clav 1 Each Tablet, 1 EACH PO BID, #6 Prescribed by: RIGOBERTO CARRILLO on 08/15/16 1150 Cephalexin 500 Mg Capsule, 500 MG PO TID, #20 (Reported) #20 FILLED 08-10-16 Diltiazem HCl 240 Mg Cap.er.24h, 240 MG PO DAILY, #30 Ref 4 Prescribed by: BLANCA TABARES on 08/15/16 1054 Furosemide 20 Mg Tablet, 40 MG PO BID, (Reported) Hydrocodone Bit/Acetaminophen 1 Each Tablet, 2 TAB PO TID, (Reported) TAKES 2 (10-325MG) TABLETS Insulin Aspart 1 Unit/0.01 Ml Mara, 9 UNIT SQ AC, (Reported) MAY ADD SLIDING SCALE TO SCHEDULE DOSE Insulin Aspart 100 Unit/1 Ml Insuln.pen, SQ AC, (Reported) BASE 9 UNITS PLUS SLIDING SCALE FSBS UP TO 140 - 0 UNITS 141-180 - 2 UNITS 181-220 - 4 UNITS 221-260 - 6 UNITS 261-300 - 8 UNITS 301-340 - 10 UNITS 341- 380 - 12 UNITS 381-420 - 14 UNITS Insulin Detemir 100 Unit/1 Ml Insuln.pen, 36 UNIT SQ BEFORE BREAKFAST, (Reported ) Insulin Detemir 100 Unit/1 Ml Insuln.pen, 18 UNIT SQ HS, (Reported) Mycophenolate Mofetil 250 Mg Capsule, 500 MG PO BID, (Reported) TAKES 2 (250MG) CAPSULE Omeprazole Magnesium 20 Mg Tablet.dr, 40 MG PO DAILY, (Reported) Oxycodone Hcl 5 Mg Tablet, 10 MG PO Q8H PRN for PAIN, (Reported) NEEDED FOR PAIN Pregabalin 100 Mg Capsule, 100 MG PO BID, (Reported) Sennosides/Docusate Sodium 1 Tab Tablet, 1 TAB PO HS, (Reported) Tacrolimus 1 Mg Capsule, 1 MG PO DAILY, (Reported) Tacrolimus 1 Mg Capsule, 2 MG PO HS, (Reported) Temazepam 15 Mg Capsule, 15 MG PO HS PRN for SLEEP, (Reported) Ursodiol 300 Mg Capsule, 300 MG PO BID, (Reported) Warfarin Sod 5 Mg Tab, 5 MG PO T,,,, (Reported) Warfarin Sod 7.5 Mg Tablet, 7.5 MG PO M,W,F, (Reported) WILLIAM BONILLA MD Aug 31, 2017 13:46
[2017-08-31 14:35] VITALS: BP 161/91
== END ==
LOC: SDC 09:42
PROVIDERS: ATTEND Surgery
DX: R18.8 Other ascites (principal); I48.91 Unspecified atrial fibrillation; E78.00 Pure hypercholesterolemia, unspecified; I10 Essential (primary) hypertension; Z94.4 Liver transplant status; Z95.1 Presence of aortocoronary bypass graft; Z95.5 Presence of coronary angioplasty implant and graft; Z79.01 Long term (current) use of anticoagulants; Z79.4 Long term (current) use of insulin

== ENCOUNTER 2017-10-12 19:50 | Outpatient (CLI) | payer MEDICARE ==
[~2017-10-12 19:50] MED LIST changes: +OXYC-529 PO
== END 2017-10-13 05:48 | disposition home or self-care (01) ==
LOC: SLEEP 19:50
PROVIDERS: ATTEND Internal Medicine
DX: G47.33 Obstructive sleep apnea (adult) (pediatric) (principal)
CPT/HCPCS: 95811

== ENCOUNTER 2017-10-29 14:34 | Outpatient (RCR) | payer MEDICARE ==
[2017-08-23 16:08] LABS: INR 2.2 (0.8-1.4); PROTHROMBIN TIME PATIENT 24.7 SEC (12.2-14.7)
[2017-10-29 15:00] LABS: INR 2.3 (0.8-1.4); PROTHROMBIN TIME PATIENT 25.2 SEC (12.2-14.7)
== END 2017-11-21 | disposition home or self-care (01) ==
LOC: LAB 14:34
PROVIDERS: ATTEND Internal Medicine Cardiovascular Disease
DX: Z51.81 Encounter for therapeutic drug level monitoring (principal); I48.0 Paroxysmal atrial fibrillation; Z79.01 Long term (current) use of anticoagulants
CPT/HCPCS: 36415; 85610

== ENCOUNTER 2017-10-29 14:35 | Outpatient (RCR) | payer MEDICARE ==
[2017-08-23 15:55] LABS: BASOPHILS % (AUTO) 0 % (0-10); EOSINOPHILS # (AUTO) 0.1 10^3/uL (0.0-0.3); EOSINOPHILS % (AUTO) 3 % (0-10); HEMATOCRIT 43 % (40-54); HEMOGLOBIN 12.9 G/DL (13.3-17.7); LYMPHOCYTES # (AUTO) 1.4 X 10^3 (1.0-4.0); LYMPHOCYTES % (AUTO) 26 % (12-44); MEAN CORPUSCULAR HEMOGLOBIN 24 PG (25-34); MEAN CORPUSCULAR HGB CONC 30 G/DL (32-36); MEAN CORPUSCULAR VOLUME 82 FL (80-99); MEAN PLATELET VOLUME 9.7 FL (7.4-10.4); MONOCYTES # (AUTO) 0.6 X 10^3 (0.0-1.0); MONOCYTES % (AUTO) 10 % (0-12); NEUTROPHILS # (AUTO) 3.3 X 10^3 (1.8-7.8); NEUTROPHILS % (AUTO) 60 % (42-75); PLATELET COUNT 193 10^3/uL (130-400); RED BLOOD COUNT 5.28 10^6/uL (4.35-5.85); RED CELL DISTRIBUTION WIDTH 16.3 % (10.0-14.5); WHITE BLOOD COUNT 5.4 10^3/uL (4.3-11.0)
[2017-08-23 16:15] LABS: ALANINE AMINOTRANSFERASE < 6 U/L (0-55); ALBUMIN 4.1 GM/DL (3.2-4.5); ALKALINE PHOSPHATASE 85 U/L (40-136); BILIRUBIN,TOTAL 1.1 MG/DL (0.1-1.0); BUN/CREATININE RATIO 13; CALCIUM 9.2 MG/DL (8.5-10.1); CARBON DIOXIDE 30 MMOL/L (21-32); CHLORIDE 100 MMOL/L (98-107); GFR ESTIMATED 33; GLUCOSE 81 MG/DL (70-105); MAGNESIUM 1.7 MG/DL (1.8-2.4); PHOSPHORUS 2.8 MG/DL (2.3-4.7); POTASSIUM 3.8 MMOL/L (3.6-5.0); SODIUM 141 MMOL/L (135-145); TOTAL PROTEIN 6.7 GM/DL (6.4-8.2)
[2017-08-25 16:13] LABS: FK506 7.3 ng/mL
[2017-10-29 14:52] LABS: BASOPHILS % (AUTO) 0 % (0-10); EOSINOPHILS # (AUTO) 0.1 10^3/uL (0.0-0.3); EOSINOPHILS % (AUTO) 2 % (0-10); HEMATOCRIT 40 % (40-54); HEMOGLOBIN 12.2 G/DL (13.3-17.7); LYMPHOCYTES # (AUTO) 0.9 X 10^3 (1.0-4.0); LYMPHOCYTES % (AUTO) 18 % (12-44); MEAN CORPUSCULAR HEMOGLOBIN 25 PG (25-34); MEAN CORPUSCULAR HGB CONC 31 G/DL (32-36); MEAN CORPUSCULAR VOLUME 81 FL (80-99); MEAN PLATELET VOLUME 9.9 FL (7.4-10.4); MONOCYTES # (AUTO) 0.4 X 10^3 (0.0-1.0); MONOCYTES % (AUTO) 8 % (0-12); NEUTROPHILS # (AUTO) 3.6 X 10^3 (1.8-7.8); NEUTROPHILS % (AUTO) 71 % (42-75); PLATELET COUNT 163 10^3/uL (130-400); RED BLOOD COUNT 4.96 10^6/uL (4.35-5.85); RED CELL DISTRIBUTION WIDTH 17.2 % (10.0-14.5)
[2017-10-29 15:08] LABS: ALANINE AMINOTRANSFERASE < 6 U/L (0-55); ALKALINE PHOSPHATASE 88 U/L (40-136); BILIRUBIN,TOTAL 1.4 MG/DL (0.1-1.0); BUN/CREATININE RATIO 13; CARBON DIOXIDE 26 MMOL/L (21-32); CHLORIDE 100 MMOL/L (98-107); CREATININE SERUM 2.13 MG/DL (0.60-1.30); GFR ESTIMATED 31; GLUCOSE 219 MG/DL (70-105); MAGNESIUM 1.7 MG/DL (1.8-2.4); PHOSPHORUS 3.8 MG/DL (2.3-4.7); POTASSIUM 5.1 MMOL/L (3.6-5.0); SODIUM 138 MMOL/L (135-145); TOTAL PROTEIN 6.6 GM/DL (6.4-8.2)
== END 2017-11-21 | disposition home or self-care (01) ==
LOC: LAB 14:35
PROVIDERS: ATTEND Internal Medicine
DX: Z94.4 Liver transplant status (principal); Z79.899 Other long term (current) drug therapy
CPT/HCPCS: 36415; 80053; 80197; 82977; 83735; 84100; 85025

== ENCOUNTER → 2017-12-06 | Outpatient (CLI) | payer MEDICARE ==
--- NOTE | 2017-12-06 12:19 | Diagnostic Imaging Report ---
INDICATION: Fall with bilateral anterior rib pain. TIME OF EXAM: 12:22 PM FINDINGS: Multiple views of bilateral ribs were obtained. Changes of median sternotomy are identified. There are multiple surgical clips in the upper abdomen. No displaced rib fracture is detected. No parenchymal contusion, effusion or pneumothorax is seen. IMPRESSION: No displaced rib fracture is detected. Dictated by: Dictated on workstation # [id number]
== END ==
LOC: RAD 11:51
PROVIDERS: ATTEND Internal Medicine
DX: R07.81 Pleurodynia (principal); W19.XXXA Unspecified fall, initial encounter
CPT/HCPCS: 71110

== ENCOUNTER → 2018-02-14 | Outpatient (CLI) | payer MEDICARE ==
--- NOTE | 2018-02-14 12:25 | Diagnostic Imaging Report ---
INDICATION: Pain. 2 views were obtained FINDINGS: There is cardiomegaly. There is some scarring or atelectasis in the right upper lobe. There is some right hilar fullness. There is no pleural effusion or pneumothorax. There has been previous median sternotomy and coronary artery bypass graft. There is also some soft tissue fullness in right paratracheal region. IMPRESSION: Soft tissue fullness in the right paratracheal region and right hilum. Possibility of underlying mass or adenopathy cannot be excluded. Recommend further evaluation with contrast-enhanced CT chest. Additionally, there is some scarring in the right lung apex. Dictated by: Dictated on workstation # [id number]
--- NOTE | 2018-02-14 13:24 | Diagnostic Imaging Report ---
INDICATION: Pain. FINDINGS: Three views of the right ribs were obtained. There is some persistent scarring in the right lung apex. There is also soft tissue prominence about the right hilum. There are no displaced rib fractures. There are multiple surgical clips in the right upper quadrant. IMPRESSION: No displaced rib fractures. Nodular right upper lobe scarring or atelectasis as well as soft tissue fullness about the right hilum. Again, further evaluation with a contrast-enhanced CT chest is recommended as the possibility of mass or adenopathy cannot be excluded. Dictated by: Dictated on workstation # [id number]
== END ==
LOC: RAD 10:33
PROVIDERS: ATTEND Internal Medicine
DX: J98.4 Other disorders of lung (principal); R91.8 Other nonspecific abnormal finding of lung field
CPT/HCPCS: 71046; 71100

== ENCOUNTER 2018-02-17 07:30 | Emergency (ER) | payer MEDICARE ==
[~2018-02-17] VITALS: Ht 182.9 cm; Wt 106.6 kg
[2018-02-17] MEDS ORDERED: MIDAZOLAM 5 MG/5 ML (VERSED) VIAL IV ONE (07:33)
[2018-02-17] MEDS ORDERED: ETOMIDATE IV SOLN 20 MG/10 ML VIAL IV ONE (07:33)
[2018-02-17] MEDS ORDERED: fentaNYL INJECTION 100 MCG/2 ML AMP INJ ONE (07:33)
[2018-02-17] MEDS ORDERED: SUCCINYLCHOLINE INJ 100 MG/5 ML SYR INJ ONE (07:33)
[2018-02-17] MEDS ORDERED: ADENOSINE 6 MG/2 ML (ADENOCARD) VIAL IV ONE ×5 (07:34→08:00)
[2018-02-17] MEDS ORDERED: VERAPAMIL 5 MG/2 ML (CALAN) VIAL IV ONE (07:34)
[2018-02-17] MEDS ORDERED: NS IV 1000 ML 1,000 ML ONE ×2 (07:35→07:39)
[2018-02-17] MEDS ORDERED: NS IV 1000 ML 1,000 ML IV SCH (07:37)
--- OUTSIDE RECORDS SUMMARY | 2018-02-17 07:37 | XMS REPORT | Continuity of Care Document ---
Author Author [facility] Address Unknown Phone Unavailable Care Team Providers Care Server Manager Name Role Phone [employer] Unavailable Unavailable Problems Medications Allergies, Adverse Reactions, Alerts Immunizations Results Vital Signs Encounters Location Location Details Encounter Type Encounter Number Reason For Visit Attending Provider ADM Date DC Date Status Source OP SURGERY [id number] RAZA FOOTE 06/15/2017 06/15/2017 Active [facility] OUTPATIENT [id number] CIARAN MCGILL 10/26/2017 Active [facility] O BRUCE TIWARI Active [facility] Procedures Plan of Care Social History Assessment and Plan Family History Advance Directives Functional Status
--- OUTSIDE RECORDS SUMMARY | 2018-02-17 07:37 | XMS REPORT | Encounter Summary ---
Author Author [facility] Address Unknown Phone Unavailable Care Team Providers Care Curriculum Advisory Teacher Name Role Phone Jamie Sanders MD PCP Valdemar Phillips MD Unavailable Manuel Shirley MD Unavailable Valorie Concepcion RN Unavailable Unavailable Justina Rueda MD Unavailable Sergio Palacios MD Unavailable Kartik Gimenez MD Unavailable Socrates Smith MD Unavailable Ramona Mast MD Unavailable Unavailable Dayna Garduno PA-C Unavailable Axel Gallardo MD Unavailable Burak Tillman MD Unavailable Hugh Landry MD Unavailable Unavailable Georgette Simon MD Unavailable Lisa Yun APRN Unavailable Anshul Reis MD Unavailable Mohamud Burton MD Unavailable Heather Roberto Unavailable Unavailable Kenneth Lewis MD Unavailable Maryanne Oliva DO Unavailable Mattie CallawayN Unavailable Unavailable BullGuanacoRoya Unavailable Unavailable Long, Batsheva AGUIRRE Unavailable Unavailable Carlotta De La Torre Unavailable Unavailable Justine Marquez Unavailable Unavailable Saad Godinez MD Unavailable Yeyo Roberson MD Unavailable Reason for Visit * Reason Comments Appointment Encounter Details Date Type Department Care Team Description 02/08/2018 Telephone [facility] Kenneth Lewis MD Appointment Physicians - Clinical [address] Pharmacology [place] [address] [place] [address] [address] [phone] [place] [address] Social History Tobacco Use Types Packs/Day Years Used Date Former Smoker Cigarettes 1 40 Smokeless Tobacco: Never Used Comments: quit in 1999 Alcohol Use Drinks/Week oz/Week Comments No Sex Assigned at Date Recorded Not on file as of this encounter Functional Status Functional Status Response Date of Assessment Does the patient have a hearing impairment: No 05/10/2016 Does the patient have a visual impairment: Yes 05/10/2016 Does the patient have impaired ambulation: No 05/10/2016 Does the patient have an activity of daily living No 05/10/2016 (ADL) impairment: Does the patient have an instrumental activity of No 05/10/2016 daily living (IADL) impairment: Cognitive Status Response Date of Assessment Does the patient have a cognitive impairment: No 05/10/2016 as of this encounter Miscellaneous Notes * Addendum Note - Lucas Keyes RN - 02/08/2018 2:23 PM CDT Addended by: LUCAS KEYES on: 02/08/2018 02:23 PM Modules accepted: Orders * Telephone Encounter - Lucas Keyes RN - 02/08/2018 2:18 PM CDT Mailed lab orders to patient. * Telephone Encounter - Danay Roland - 02/08/2018 1:58 PM CDT Left voicemail, reminded patient of appt and lab work. Emailed lucas to have them mailed out. in this encounter Plan of Treatment Name Priority Associated Diagnoses Order Schedule CREATINE KINASE-CPK Routine Familial Expected: 02/08/2018, hypercholesterolemia Expires: 02/08/2019 LIPID PROFILE Routine Familial Expected: 02/08/2018, hypercholesterolemia Expires: 02/08/2019 COMPREHENSIVE METABOLIC PANEL Routine Familial Expected: 02/08/2018, hypercholesterolemia Expires: 02/08/2019 C REACTIVE PROTEIN (CRP) Routine Familial Expected: 02/08/2018, hypercholesterolemia Expires: 02/08/2019 URIC ACID Routine Familial Expected: 02/08/2018, hypercholesterolemia Expires: 02/08/2019 MAGNESIUM Routine Familial Expected: 02/08/2018, hypercholesterolemia Expires: 02/08/2019 LIPOPROTEIN A Routine Familial Expected: 02/08/2018, hypercholesterolemia Expires: 02/08/2019 FIBRINOGEN Routine Familial Expected: 02/08/2018, hypercholesterolemia Expires: 02/08/2019 CBC AND DIFF Routine Familial Expected: 02/08/2018, hypercholesterolemia Expires: 02/08/2019 TSH WITH FREE T4 REFLEX Routine Familial Expected: 02/09/2018, hypercholesterolemia Expires: 02/08/2019 HEMOGLOBIN A1C Routine Blood glucose elevated Expected: 02/09/2018, Expires: 02/08/2019 25-OH VITAMIN D (D2 + D3) Routine Vitamin D deficiency Expected: 2017, Expires: 02/08/2019 as of this encounter Goals Patient Goal Type Goal Recent Progress Patient-Stat Author ed? Result Component HEMOGLOBIN A1C < 7.0 6.7 (10/21/2010 11:50 AM Enriqueta Garduno CST) KILEY Mcintosh as of this encounter Visit Diagnoses Diagnosis Familial hypercholesterolemia - Primary Pure hypercholesterolemia Blood glucose elevated Other abnormal glucose Vitamin D deficiency Unspecified vitamin D deficiency
--- OUTSIDE RECORDS SUMMARY | 2018-02-17 07:37 | XMS REPORT | Clinical Summary ---
Author Author [facility] Organization [facility] Address Unknown Phone Unavailable Care Team Providers Care Dressed Poultry Grader Name Role Phone Jamie Sanders MD PCP [...] MD Unavailable Maryanne Oliva DO Unavailable Mattie Callaway BSN Unavailable Unavailable Roya Gottlieb Unavailable Unavailable Batsheva Long MA Unavailable Unavailable Carlotta De La Torre Unavailable Unavailable Justine Marquez Unavailable Unavailable Saad Godinez MD Unavailable Yeyo Roberson MD Unavailable Source Comments Some departments are not documenting in the electronic medical record. If you do not see the information that you expected, contact Release of Information in the Health Information Management department at [phone] for further assistance in locating additional records.[facility] Allergies Active Allergy Reactions Severity Noted Date Comments Meperidine HIVES, SWELLING 03/02/2010 Morphine ANAPHYLAXIS 03/02/2010 Current Medications Prescription Sig. Disp. Refills Start [...] at Active mg capsule bedtime as needed. oxyCODone (ROXICODONE) 5 Take 5 mg by mouth every Active mg tablet 6 hours as needed warfarin (COUMADIN) 7.5 Take 7.5 mg by mouth at Active mg tablet bedtime daily. Docusate Calcium 50 mg Take 100 mg by mouth at Active cap bedtime daily. rOPINIRole (REQUIP) 1 mg Take 1 mg by mouth twice Active tablet daily. cyanocobalamin(DIL) Inject into the muscle Active (VITAMIN B-12) 100 mcg/mL every 30 days. Not had for 8 months insulin detemir(+) 34 U am and 16 U pm plus 4 box 3 03/22/20 Active (LEVEMIR FLEXPEN) 100 2 units to prime pen each 14 unit/mL (3 mL) injection time. penIndications: Type II or unspecified type diabetes mellitus without mention of complication, not stated as uncontrolled insulin aspart (NOVOLOG) Inject 9 units with 75 mL 3 03/22/20 Active 100 unit/mL breakfast, 9 units with 14 flexPENIndications: Type lunch, and 11 units with II or unspecified type dinner. Plus 2 for every diabetes mellitus without 40 >140 Max 80. mention of complication, not stated as uncontrolled ursodiol (ACTIGALL) 300 Take 300 mg by mouth Active mg capsule every 12 hours. HYDROCODONE BITARTRATE PO Take 325 mg by mouth. Active other medication 1 Dose. CHAZ COMFORT get Active for feet. blood sugar diagnostic Use 1 Strip as directed Active (GLUCOSE METER TEST three times daily. STRIP) test strip accuchek wild pregabalin (LYRICA) 75 mg Take 150 mg by mouth Active capsule twice daily. furosemide (LASIX) 40 mg Take 1 Tab by mouth twice 60 Tab 5 03/24/20 Active tablet daily. 16 Blood-Glucose Meter Accuchek WILD METER 1 Kit 0 03/04/20 Active kitIndications: Diabetes 17 mellitus without complication (HCC) tacrolimus (PROGRAF) 1 mg Take 1 Cap by mouth twice 60 Cap 11 Active capsule daily. 17 Active Problems Problem Noted Date Shaking spells 12/17/2015 HTN (hypertension) 11/21/2012 Last Assessment & Plan: BP is good today. No change, cont the same. Peripheral neuropathy 11/21/2012 Last Assessment & Plan: He has [...] Per PCP? Or Cardiology? Results for CUCO CHONG ( ) as of 11/01/2013 15:31 Ref. [...] 01/31/2011 10/29/2014 PRADO (nonalcoholic steatohepatitis) 04/01/2010 11/21/2012 Encounters Date Type Specialty Care Team Description 02/08/2018 Telephone Clinical Pharmacology Kenneth Lewis MD Appointment 02/03/2018 Orders Only Transplant Surgery Bernard Negron Liver replaced by transplant (HCC) 12/05/2017 Orders Only Transplant Surgery [facility] Negron Liver replaced by transplant (HCC) 12/02/2017 Orders Only Transplant Surgery Bernard Negron Liver replaced by transplant (HCC) 12/02/2017 Orders Only Transplant Surgery Mattie Callaway BSN Liver replaced by transplant (HCC) (Primary Dx) from Last 3 Months Immunizations Name Dates Previously Given Next Due Tdap Vaccine 07/02/2010 Family History Medical History Relation Name Comments Coronary Artery Disease Father Heart Attack Father Sudden Cardiac Father Cancer Mother Coronary Artery Disease Sister Diabetes Sister Relation Name Status Comments Brother Alive Brother Alive Father Mother Sister Alive Sister Alive Sister Alive Sister Alive Sister Alive Sister Alive Social History Tobacco Use Types Packs/Day Years Used Date Former Smoker Cigarettes 1 40 Smokeless Tobacco: Never Used Tobacco Cessation: Counseling Given: No Comments: quit in 1999 Alcohol Use Drinks/Week oz/Week Comments No Sex Assigned at Date Recorded Not on file Last Filed Vital Signs Vital Sign Reading Time Taken Blood Pressure 150/84 06/15/2017 11:15 AM CDT Pulse 91 06/15/2017 11:15 AM CDT Temperature 36.9 C (98.4 F) 06/15/2017 10:00 AM CDT Respiratory Rate 16 05/23/2017 11:47 AM CDT Oxygen Saturation 89% 06/15/2017 11:15 AM CDT Inhaled Oxygen - - Concentration Weight 114.6 kg (252 lb 9.6 oz) 05/23/2017 11:47 AM CDT Height 182.2 cm (5' 11.73") 05/23/2017 11:47 AM CDT Body Mass Index 34.52 05/23/2017 11:47 AM CDT Plan of Treatment Health Maintenance Due Date Last Done Comments SHINGLES VACCINE 2005 ABDOMINAL AORTIC ANEURYSM 2010 SCREENING PREVNAR/PNEUMOVAX (#1) 2010 PHYSICAL (COMPREHENSIVE) 08/28/2015 08/28/2014 (Previously completed), EXAM 12/09/2010 MICROALBUMIN 07/29/2016 07/29/2015, 10/31/2014, 10/31/2014 DILATED EYE EXAM 03/14/2017 03/14/2016, 01/13/2016, 11/28/2013 (Previously completed) HBA1C 09/03/2017 03/04/2017, 09/06/2016, 03/05/2016, Additional history exists FOOT EXAM 03/04/2018 03/04/2017, 03/04/2017, 09/06/2016, Additional history exists INFLUENZA VACCINE 08/14/2018 08/14/2015 TETANUS VACCINE 07/02/2020 07/02/2010 COLORECTAL CANCER 11/08/2020 11/08/2010 SCREENING HEPATITIS C SCREENING Completed 03/30/2010, 03/30/2010, 01/01/2010, Additional history exists PERTUSSIS VACCINE Completed 07/02/2010 Goals Patient Goal Type Goal Recent Progress Patient-Stat Author ed? Result Component HEMOGLOBIN A1C < 7.0 6.7 (10/21/2010 11:50 AM No Laureen, ALEXSANDER) KILEY Mcintosh Results * GGTP (02/02/2018 4:45 PM) Only the most recent of 2 results within the time period is included. Component Value Ref Range GGTP 38 0 - 65 U/L Specimen Performing Laboratory Blood LABDE INTERFACE Narrative Outside Lab Verified by Bernard Negron on 02/03/2018. * PROTIME INR (PT) (02/02/2018 4:45 PM) Only the most recent of 2 results within the time period is included. Component Value Ref Range Protime 40.5 (H) 11.3 - 14.1 sec INR 4.1 (H) 0.9 - 1.1 Specimen Performing Laboratory Blood LABDE INTERFACE Narrative Outside Lab Verified by Bernard Negron on 02/03/2018. * CBC AND DIFF (02/02/2018 4:45 PM) Only the most recent of 2 results within the time period is included. Component Value Ref Range White Blood Cells 4.86 (L) 5.00 - 10.00 K/uL RBC 4.86 4.20 - 5.40 M/ul Hemoglobin 12.0 (L) 14.0 - 17.0 g/dL Hematocrit 39.2 (L) 42.0 - 52.0 % MCV 80.7 80.0 - 97.0 fl MCH 24.7 (L) 27.0 - 31.0 pg MCHC 30.6 (L) 32.0 - 36.0 pg RDW 17.8 (H) 11.6 - 14.8 % Platelet Count 154 150 - 400 K/uL Neutrophils 65.8 37.0 - 80.0 % Lymphocytes 20.0 10.0 - 50.0 % Monocytes 10.7 0.0 - 12.0 % Eosinophil 2.9 0.0 - 7.0 % Basophil 0.6 0.0 - 2.5 % Absolute Neutrophil Count 3.20 2.00 - 6.90 K/uL Absolute Lymph Count 0.97 0.60 - 3.40 K/uL Absolute Monocyte Count 0.5 0.0 - 0.9 K/uL Absolute Eosinophil Count 0.1 0.0 - 0.7 K/uL Absolute Basophil Count 0.0 0.0 - 0.2 K/uL Specimen Performing Laboratory Blood LABDE INTERFACE Narrative Outside Lab Verified by Bernard Negron on 02/03/2018. * PHOSPHORUS (02/02/2018 4:45 PM) Only the most recent of 2 results within the time period is included. Component Value Ref Range Phosphorus 3.5 2.5 - 4.5 mg/dL Specimen Performing Laboratory Blood LABDE INTERFACE Narrative Outside Lab Verified by Bernard Negron on 02/03/2018. * MAGNESIUM (02/02/2018 4:45 PM) Only the most recent of 2 results within the time period is included. Component Value Ref Range Magnesium 1.6 1.6 - 2.6 mg/dL Specimen Performing Laboratory Blood LABDE INTERFACE Narrative Outside Lab Verified by Bernard Negron on 02/03/2018. * COMPREHENSIVE METABOLIC PANEL (02/02/2018 4:45 PM) Only the most recent of 2 results within the time period is included. Component Value Ref Range Sodium 138 132 - 145 mEq/L Potassium 4.8 3.5 - 5.5 mEq/L Chloride 101 95 - 110 mEq/L CO2 27.0 24.0 - 34.0 mEq/L Anion Gap 15 (H) 6 - 14 Glucose 108 60 - 125 mg/dL Creatinine 2.0 (H) 0.6 - 1.5 mg/dL eGFR Non 35 (L) >59 mL/min/1.73 Blood Urea Nitrogen 33 (H) 9 - 27 mg/dL Calcium 9.0 8.5 - 10.8 mg/dL Alk Phosphatase 96 30 - 115 U/L AST (SGOT) 9 0 - 40 U/L ALT (SGPT) 4 (L) 9 - 29 U/L Total Bilirubin 0.7 0.1 - 1.4 mg/dL Albumin 4.2 3.5 - 4.8 g/dL Total Protein 6.4 6.0 - 8.0 g/dL Specimen Performing Laboratory Blood LABDE INTERFACE Narrative Outside Lab Verified by Bernard Negron on 02/03/2018. * TACROLIMUS LEVEL(FK506) (11/30/2017 10:00 AM) Component Value Ref Range Tacrolimus 4.2 (L) 5.0 - 15.0 ng/mL Specimen Performing Laboratory Blood LABDE INTERFACE Narrative Outside Lab Verified by Bernard Negron on 12/05/2017. from Last 3 Months
--- OUTSIDE RECORDS SUMMARY | 2018-02-17 07:38 | XMS REPORT | Encounter Summary ---
Author Author [facility] Organization [facility] Address Unknown Phone Unavailable Care Team Providers Care Complex Care Nurse Practitioner Name Role Phone Jamie Sanders MD PCP Valdemar Phillips MD Unavailable Manuel Shirley MD Unavailable Valorie Concepcion RN Unavailable Unavailable Justina Rueda MD Unavailable Sergio Palacios MD Unavailable Kartik Gimenez MD Unavailable Socrates Smith MD Unavailable Ramona Mast MD Unavailable Unavailable Dyana Garduno PA-C Unavailable Axel Gallardo MD Unavailable Burak Tillman MD Unavailable Hugh Landry MD Unavailable Unavailable Georgette Simon MD Unavailable Lisa Yun APRN Unavailable Anshul Reis MD Unavailable Mohamud Burton MD Unavailable Heather Roberto Unavailable Unavailable Kenneth Lewis MD Unavailable Maryanne Oliva DO Unavailable Mattie CallawayN Unavailable Unavailable Bull Roya Unavailable Unavailable Batsheva Long MA Unavailable Unavailable Carlotta De La Torre Unavailable Unavailable Justine Marquez Unavailable Unavailable Saad Godinez MD Unavailable Yeyo Roberson MD Unavailable Encounter Details Date Type Department Care Team Description 12/05/2017 Orders Only Center for Bernard Negron Liver replaced by Transplantation-Liver transplant (HCC) Transplant Hep [address] [facility] [place] [address] Social History Tobacco Use Types Packs/Day Years [...] impairment: No 05/10/2016 as of this encounter Plan of Treatment Not on fileas of this encounter Goals Patient Goal Type Goal Recent Progress Patient-Stat Author ed? Result Component HEMOGLOBIN A1C < 7.0 6.7 (10/21/2010 11:50 AM No ALEXSANDER Garduno) KILEY Mcintosh as of this encounter Results * TACROLIMUS LEVEL(FK506) (11/30/2017 10:00 AM) Component Value Ref Range Tacrolimus 4.2 (L) 5.0 - 15.0 ng/mL Specimen Performing Laboratory Blood LABDE INTERFACE Narrative Outside Lab Verified by Bernard Negron on 12/05/2017. in this encounter Visit Diagnoses Diagnosis Liver replaced by transplant (HCC) Liver replaced by transplant
--- OUTSIDE RECORDS SUMMARY | 2018-02-17 07:38 | XMS REPORT | Encounter Summary ---
Author Author [facility] Organization [facility] Address Unknown Phone Unavailable Care Team Providers Care Laser Systems Engineer Name Role Phone Jamie Sanders MD PCP [...] Details Date Type Department Care Team Description 12/02/2017 Orders Only Center for [facility] Negron Liver replaced by Transplantation-Liver transplant (HCC) Transplant Hep [address] [facility] [place] [address] Social History Tobacco Use Types Packs/Day Years [...] Mcintosh as of this encounter Results * PROTIME INR (PT) (11/30/2017 10:00 AM) Component Value Ref Range Protime 23.9 (H) 11.3 - 14.1 second(s) INR 2.1 (H) 0.9 - 1.1 Specimen Performing Laboratory Blood LABDE INTERFACE Narrative Outside Lab Verified by Carlotta De La Torre on 12/02/2017. * PHOSPHORUS (11/30/2017 10:00 AM) Component Value Ref Range Phosphorus 3.5 2.5 - 4.5 mg/dL Specimen Performing Laboratory Blood LABDE INTERFACE Narrative Outside Lab Verified by Carlotta De La Torre on 12/02/2017. * MAGNESIUM (11/30/2017 10:00 AM) Component Value Ref Range Magnesium 1.7 1.6 - 2.6 mg/dL Specimen Performing Laboratory Blood LABDE INTERFACE Narrative Outside Lab Verified by Carlotta De La Torre on 12/02/2017. * GGTP (11/30/2017 10:00 AM) Component Value Ref Range GGTP 32 0 - 65 U/L Specimen Performing Laboratory Blood LABDE INTERFACE Narrative Outside Lab Verified by Carlotta De La Torre on 12/02/2017. * COMPREHENSIVE METABOLIC PANEL (11/30/2017 10:00 AM) Component Value Ref Range Sodium 138 132 - 145 mEq/L Potassium 4.1 3.5 - 5.5 mEq/L Chloride 99 95 - 110 mEq/L CO2 30.0 24.0 - 34.0 mEq/L Anion Gap 13 6 - 14 Glucose 131 (H) 60 - 125 mg/dL Creatinine 2.3 (H) 0.6 - 1.5 mg/dL eGFR >59 mL/min/1.73 Blood Urea Nitrogen 30 (H) 9 - 27 mg/dL Calcium 9.0 8.5 - 10.8 mg/dL Alk Phosphatase 82 30 - 115 U/L AST (SGOT) 7 0 - 40 U/L ALT (SGPT) 3 (L) 9 - 29 U/L Total Bilirubin 1.2 0.1 - 1.4 mg/dL Albumin 4.1 3.5 - 4.8 g/dL Total Protein 6.2 6.0 - 8.0 g/dL Specimen Performing Laboratory Blood LABDE INTERFACE Narrative Outside Lab Verified by Carlotta De La Torre on 12/02/2017. * CBC AND DIFF (11/30/2017 10:00 AM) Component Value Ref Range White Blood Cells 6.01 5.00 - 10.00 K/ul RBC 5.12 4.20 - 5.40 M/uL Hemoglobin 12.5 (L) 14.0 - 17.0 g/dL Hematocrit 41.8 (L) 42.0 - 52.0 % MCV 81.6 80.0 - 97.0 fl MCH 24.4 (L) 27.0 - 31.0 pg MCHC 29.9 (L) 32.0 - 36.0 pg RDW 18.1 (H) 11.6 - 14.8 % Platelet Count 166 150 - 400 K/uL Neutrophils 74.0 37.0 - 80.0 % Lymphocytes 14.5 10.0 - 50.0 % Monocytes 9.3 0.0 - 12.0 % Eosinophil 1.7 0.0 - 7.0 % Basophil 0.5 0.0 - 2.5 % Absolute Neutrophil Count 4.45 2.00 - 6.90 K/ul Absolute Lymph Count 0.87 0.60 - 3.40 K/uL Absolute Monocyte Count 0.6 0.0 - 0.9 K/uL Absolute Basophil Count 0.0 0.0 - 0.2 K/uL Specimen Performing Laboratory Blood LABDE INTERFACE Narrative Outside Lab Verified by Carlotta De La Torre on 12/02/2017. in this encounter Visit Diagnoses Diagnosis Liver replaced by transplant (HCC) Liver replaced by transplant
--- OUTSIDE RECORDS SUMMARY | 2018-02-17 07:38 | XMS REPORT | Encounter Summary ---
Author Author [facility] Organization [facility] Address Unknown Phone Unavailable Care Team Providers Care Educational Therapist Name Role Phone Jamie Sanders MD PCP [...] MD Unavailable Lisa Yun APRN Unavailable Anshul Ries MD Unavailable Mohamud Burton MD Unavailable Heather Roberto Unavailable Unavailable Kenneth Lewis MD Unavailable Maryanne Oliva DO Unavailable Mattie CallawayN Unavailable Unavailable Bull Roya Unavailable Unavailable Batsheva Long MA Unavailable Unavailable Carlotta De La Torre Unavailable Unavailable Justine Marquez Unavailable Unavailable Saad Godinez MD Unavailable Yeyo Roberson MD Unavailable Encounter Details Date Type Department Care Team Description 02/03/2018 Orders Only Center for Negron, Bernard Liver replaced by Transplantation-Liver transplant (HCC) Transplant Hep [address] [facility] [place] [address] Social History Tobacco Use Types Packs/Day Years [...] this encounter Results * PROTIME INR (PT) (02/02/2018 4:45 PM) Component Value Ref Range Protime 40.5 (H) 11.3 - 14.1 sec INR 4.1 (H) 0.9 - 1.1 Specimen Performing Laboratory Blood LABDE INTERFACE Narrative Outside Lab Verified by Bernard Negron on 02/03/2018. * PHOSPHORUS (02/02/2018 4:45 PM) Component Value Ref Range Phosphorus 3.5 2.5 - 4.5 mg/dL Specimen Performing Laboratory Blood LABDE INTERFACE Narrative Outside Lab Verified by Bernard Negron on 02/03/2018. * MAGNESIUM (02/02/2018 4:45 PM) Component Value Ref Range Magnesium 1.6 1.6 - 2.6 mg/dL Specimen Performing Laboratory Blood LABDE INTERFACE Narrative Outside Lab Verified by Bernard Negron on 02/03/2018. * GGTP (02/02/2018 4:45 PM) Component Value Ref Range GGTP 38 0 - 65 U/L Specimen Performing Laboratory Blood LABDE INTERFACE Narrative Outside Lab Verified by Bernard Negron on 02/03/2018. * COMPREHENSIVE METABOLIC PANEL (02/02/2018 4:45 PM) Component Value Ref Range Sodium 138 132 [...] * CBC AND DIFF (02/02/2018 4:45 PM) Component Value Ref Range White Blood Cells [...] Lab Verified by Bernard Negron on 02/03/2018. in this encounter Visit Diagnoses Diagnosis Liver replaced by transplant (HCC) Liver replaced by transplant
--- OUTSIDE RECORDS SUMMARY | 2018-02-17 07:38 | XMS REPORT | Encounter Summary ---
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 [place] Name Role Phone Jamie Sanders MD PCP [...] Oliva DO Unavailable Mattie CallawayN Unavailable Unavailable Roya Gottlieb Unavailable Unavailable Batsheva Long MA Unavailable Unavailable Carlotta De La Torre Unavailable Unavailable Justine Marquez Unavailable Unavailable Saad Godinez MD Unavailable Yeyo Roberson MD Unavailable Encounter Details Date Type Department Care Team Description 12/02/2017 Orders Only [facility] 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) [address] [facility] [place] [address] Social History Tobacco Use Types Packs/Day Years [...] as of this encounter Plan of Treatment Name Priority Associated Diagnoses Order Schedule CBC AND DIFF Routine Liver replaced by Monthly for 6 transplant (HCC) Occurrences starting 12/02/2017 until 12/02/2018, 2 completed COMPREHENSIVE METABOLIC PANEL Routine Liver replaced by Monthly for 6 transplant (HCC) Occurrences starting 12/02/2017 until 12/02/2018, 2 completed GGTP Routine Liver replaced by Monthly for 6 transplant (HCC) Occurrences starting 12/02/2017 until 12/02/2018, 2 completed MAGNESIUM Routine Liver replaced by Monthly for 6 transplant (HCC) Occurrences starting 12/02/2017 until 12/02/2018, 2 completed PHOSPHORUS Routine Liver replaced by Monthly for 6 transplant (HCC) Occurrences starting 12/02/2017 until 12/02/2018, 2 completed TACROLIMUS LEVEL(FK506) Routine Liver replaced by Monthly for 6 transplant (HCC) Occurrences starting 12/02/2017 until 12/02/2018, 1 completed PROTIME INR (PT) Routine Liver replaced by Monthly for 6 transplant (HCC) Occurrences starting 12/02/2017 until 12/02/2018, 2 completed as of this encounter Goals Patient Goal Type Goal Recent Progress Patient-Stat Author ed? Result Component HEMOGLOBIN A1C < 7.0 6.7 (10/21/2010 11:50 AM No Laureen, ALEXSANDER) KILEY Mcintosh as of this encounter Results [...] Negron on 02/03/2018. * PROTIME INR (PT) (11/30/2017 10:00 AM) Component Value Ref Range Protime 23.9 (H) 11.3 - 14.1 second(s) INR 2.1 (H) 0.9 - 1.1 Specimen Performing Laboratory Blood LABDE INTERFACE Narrative Outside Lab Verified by Carlotta De La Torre on 12/02/2017. * TACROLIMUS LEVEL(FK506) (11/30/2017 10:00 AM) Component Value Ref Range Tacrolimus 4.2 (L) 5.0 - 15.0 ng/mL Specimen Performing Laboratory Blood LABDE INTERFACE Narrative Outside Lab Verified by Bernard Negron on 12/05/2017. * PHOSPHORUS (11/30/2017 10:00 AM) Component Value [...] Diagnoses Diagnosis Liver replaced by transplant (HCC) - Primary Liver replaced by transplant
[2018-02-17] MEDS ORDERED: NS IV PRN (07:45)
[2018-02-17] MEDS ORDERED: ACETAMINOPHEN 650 MG SUPP (TYLENOL) ONE (07:47)
[2018-02-17] MEDS ORDERED: ACETAMINOPHEN 650 MG SUPP (TYLENOL) PR STA (07:47)
--- OUTSIDE RECORDS SUMMARY | 2018-02-17 07:52 | XMS REPORT | Continuity of Care Document ---
Demographics Preferred Language Unknown Marital Status Unknown Sikh Affiliation Unknown Race Unknown Ethnic Group Unknown Author Author [facility] Organization [facility] Address Unknown Phone Unavailable Allergies Active Description Code Type Severity Reaction Onset Reported/Identified Relationship to Patient Clinical Status Yes Keflex Drug Allergy N/A N/A 04/03/2009 Yes meperidine [id number] Drug Allergy Unknown N/A 06/26/2014 Yes morphine [id number] Drug Allergy Unknown N/A 06/26/2014 Medications There is no data. Problems Date Dx Coded Attending Type Code Diagnosis Diagnosed By 04/03/2009 LEANDER MAYNARD MD 250.00 DIABETES MELLITUS TYPE II 04/03/2009 LEANDER MAYNARD MD 401.9 ESSENTIAL HYPERTENSION 04/03/2009 LEANDER MAYNARD MD 777.3 HEMATEMESIS AND MELENA OF DUE TO SWALLOWED MATERNAL BLOOD 04/03/2009 LEANDER MAYNARD MD 787.20 DYSPHAGIA UNSPECIFIED 05/05/2009 LEANDER MAYNARD MD 266.2 Serum Vitamin B12 (Cyanocobalamin) 06/19/2009 LEANDER MAYNARD MD 250.02 DIABETES MELLITUS WITHOUT MENTION OF COMPLICATION TYPE II OR UNSPECIFIED TYPE UNCONTROLLED 06/19/2009 LEANDER MAYNARD MD 272.4 HYPERLIPIDEMIA 06/19/2009 LEANDER MAYNARD MD 571.5 CIRRHOSIS 09/01/2009 LEANDER MAYNARD MD 585.3 CHRONIC KIDNEY DISEASE STAGE 3 09/01/2009 LEANDER MAYNARD MD 586 UREMIA 05/19/2010 Ot 285.9 05/22/2010 Ot 250.00 05/22/2010 Ot 272.4 05/22/2010 Ot 278.00 05/22/2010 Ot 284.1 05/22/2010 Ot 403.90 05/22/2010 Ot 414.00 05/22/2010 Ot 456.1 05/22/2010 Ot 571.5 05/22/2010 Ot 572.8 05/22/2010 Ot 574.00 05/22/2010 Ot 585.9 05/22/2010 Ot 722.6 05/22/2010 Ot V45.81 05/22/2010 Ot V85.32 05/24/2010 Ot 285.9 10/19/2010 Ot 456.1 10/19/2010 Ot 535.40 10/19/2010 Ot 571.5 01/22/2011 Ot 780.60 01/22/2011 Ot V42.7 03/31/2011 Ot V42.7 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 STATUS 03/31/2011 Ot V58.44 AFTERCARE FOLLOWING ORGAN TRANSPLANT 03/31/2011 Ot V58.69 OTH MED,LT, CURRENT USE 06/30/2011 Ot 275.2 DIS MAGNESIUM METABOLISM 06/30/2011 Ot 285.9 ANEMIA NOS 06/30/2011 Ot 729.1 MYALGIA AND MYOSITIS NOS 06/30/2011 Ot V42.7 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 STATUS 06/30/2011 Ot V58.44 AFTERCARE FOLLOWING ORGAN TRANSPLANT 06/30/2011 Ot V58.69 OTH MED,LT, CURRENT USE 09/08/2011 Ot 427.31 ATRIAL FIBRILLATION 10/04/2011 Ot V58.61 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S,LT,CURRENT USE 10/04/2011 Ot V58.83 ENCOUNTER FOR THERAPEUTIC DRUG MONITORIN 10/10/2011 Ot 275.2 DIS MAGNESIUM METABOLISM 10/10/2011 Ot 285.9 ANEMIA NOS 10/10/2011 Ot 729.1 MYALGIA AND MYOSITIS NOS 10/10/2011 Ot V42.7 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 STATUS 10/10/2011 Ot V58.44 AFTERCARE FOLLOWING ORGAN TRANSPLANT 10/10/2011 Ot V58.69 OTH MED,LT, CURRENT USE 01/16/2012 Ot 275.2 DIS MAGNESIUM METABOLISM 01/16/2012 Ot 285.9 ANEMIA NOS 01/16/2012 Ot 729.1 MYALGIA AND MYOSITIS NOS 01/16/2012 Ot V42.7 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 STATUS 01/16/2012 Ot V58.44 AFTERCARE FOLLOWING ORGAN TRANSPLANT 01/16/2012 Ot V58.69 OTH MED,LT, CURRENT USE 03/06/2012 Ot 211.3 BENIGN NEOPLASM LG BOWEL 03/06/2012 Ot 562.10 DIVERTICULOSIS COLON (W/O MENT OF HEMORR 03/06/2012 Ot V42.7 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 STATUS 03/06/2012 Ot V76.51 SCREEN MAL NEOP-COLON 04/23/2012 Ot 275.2 DIS MAGNESIUM METABOLISM 04/23/2012 Ot 285.9 ANEMIA NOS 04/23/2012 Ot 729.1 MYALGIA AND MYOSITIS NOS 04/23/2012 Ot V42.7 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 STATUS 04/23/2012 Ot V58.44 AFTERCARE FOLLOWING ORGAN TRANSPLANT 04/23/2012 Ot V58.69 OTH MED,LT, CURRENT USE 07/29/2012 Ot 250.00 DIAB LAVONNE WO COMPL, TYPE II OR UNSPEC TY 07/29/2012 Ot 274.9 GOUT NOS 07/29/2012 Ot 287.5 THROMBOCYTOPENIA NOS 07/29/2012 Ot 403.90 HYPTNSV CHR KID DIS, UNSPEC, W CHR KD ST 07/29/2012 Ot 414.00 CORON ATHEROSCLER NOS TYPE VESSEL, NATIV 07/29/2012 Ot 427.31 ATRIAL FIBRILLATION 07/29/2012 Ot 486 PNEUMONIA, ORGANISM NOS 07/29/2012 Ot 530.81 ESOPHAGEAL REFLUX 07/29/2012 Ot 585.9 CHRONIC KIDNEY DISEASE, UNSPECIFIED 07/29/2012 Ot V15.82 HISTORY OF TOBACCO USE 07/29/2012 Ot V42.7 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 STATUS 07/29/2012 Ot V45.81 AORTOCORONARY BYPASS 07/29/2012 Ot V58.61 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S,LT,CURRENT USE 07/29/2012 Ot V58.67 LONG-TERM ( 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 OF INSULIN 08/11/2012 Ot 571.8 CHRONIC LIVER DIS NEC 08/13/2012 Ot V42.7 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 STATUS 08/13/2012 Ot V58.44 AFTERCARE FOLLOWING ORGAN TRANSPLANT 08/13/2012 Ot V58.69 OTH MED,LT, CURRENT USE 08/18/2012 Ot 250.00 DIAB LAVONNE WO COMPL, TYPE II OR UNSPEC TY 08/18/2012 Ot 266.2 B-COMPLEX DEFIC NEC 08/18/2012 Ot 268.9 VITAMIN D DEFICIENCY NOS 08/18/2012 Ot 274.9 GOUT NOS 08/18/2012 Ot 278.00 OBESITY, NOS 08/18/2012 Ot 284.19 OTHER PANCYTOPENIA 08/18/2012 Ot 327.23 OBSTRUCTIVE SLEEP APNEA (ADULT) (PEDIATR 08/18/2012 Ot 411.1 INTERMED CORONARY SYND 08/18/2012 Ot 414.00 CORON ATHEROSCLER NOS TYPE VESSEL, NATIV 08/18/2012 Ot 414.8 CHR ISCHEMIC HRT DIS NEC 08/18/2012 Ot 427.31 ATRIAL FIBRILLATION 08/18/2012 Ot 433.10 CAROTID ARTERY OCCLUSION W O CEREBRAL IN 08/18/2012 Ot 585.9 CHRONIC KIDNEY DISEASE, UNSPECIFIED 08/18/2012 Ot 721.3 LUMBOSACRAL SPONDYLOSIS 08/18/2012 Ot V42.7 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 STATUS 08/18/2012 Ot V45.81 AORTOCORONARY BYPASS 09/17/2012 Ot V58.61 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S,LT,CURRENT USE 09/17/2012 Ot V58.83 ENCOUNTER FOR THERAPEUTIC DRUG MONITORIN 11/13/2012 Ot V42.7 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 STATUS 11/13/2012 Ot V58.44 AFTERCARE FOLLOWING ORGAN TRANSPLANT 11/13/2012 Ot V58.69 OTH MED,LT, CURRENT USE 12/17/2012 Ot V58.61 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S,LT,CURRENT USE 12/17/2012 Ot V58.83 ENCOUNTER FOR THERAPEUTIC DRUG MONITORIN 03/12/2013 Ot V42.7 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 STATUS 03/12/2013 Ot V58.44 AFTERCARE FOLLOWING ORGAN TRANSPLANT 03/12/2013 Ot V58.69 OTH MED,LT, CURRENT USE 04/22/2013 RUPERT DUPREE MD Ot V58.61 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S,LT,CURRENT USE 04/22/2013 RUPERT DUPREE MD Ot V58.83 ENCOUNTER FOR THERAPEUTIC DRUG MONITORIN 05/06/2013 Ot 414.00 CORON ATHEROSCLER NOS TYPE VESSEL, NATIV 05/06/2013 Ot 782.3 EDEMA 05/30/2013 Admitting V42.7 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 STATUS 05/30/2013 Admitting V58.69 LONG- TERM USE MEDS NEC 06/17/2013 RAZA FOOTE MD Ot V42.7 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 STATUS 06/17/2013 RAZA FOOTE MD Ot V58.44 AFTERCARE FOLLOWING ORGAN TRANSPLANT 06/17/2013 RAZA FOOTE MD Ot V58.69 OTH MED,LT,CURRENT USE 07/29/2013 RUPERT DUPREE MD Ot V58.61 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S,LT,CURRENT USE 07/29/2013 RUPERT DUPREE MD Ot V58.83 ENCOUNTER FOR THERAPEUTIC DRUG MONITORIN 09/16/2013 RAZA FOOTE MD Ot V42.7 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 STATUS 09/16/2013 RAZA FOOTE MD Ot V58.44 AFTERCARE FOLLOWING ORGAN TRANSPLANT 09/16/2013 RAZA FOOTE MD Ot V58.69 OTH MED,LT,CURRENT USE 11/04/2013 RUPERT DUPREE MD Ot V58.61 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S,LT,CURRENT USE 11/04/2013 RUPERT DUPREE MD Ot V58.83 ENCOUNTER FOR THERAPEUTIC DRUG MONITORIN 12/25/2013 RAZA FOOTE MD Ot V42.7 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 STATUS 12/25/2013 RAZA FOOTE MD Ot V58.44 AFTERCARE FOLLOWING ORGAN TRANSPLANT 12/25/2013 RAZA FOOTE MD Ot V58.69 OTH MED,LT,CURRENT USE 04/03/2014 RUPERT DUPREE MD Ot V58.61 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S,LT,CURRENT USE 04/03/2014 RUPERT DUPREE MD Ot V58.83 ENCOUNTER FOR THERAPEUTIC DRUG MONITORIN 04/03/2014 RAZA FOOTE MD Ot V42.7 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 STATUS 04/03/2014 RAZA FOOTE MD Ot V58.44 AFTERCARE FOLLOWING ORGAN TRANSPLANT 04/03/2014 RAZA FOOTE MD Ot V58.69 OTH MED,LT,CURRENT USE 06/28/2014 DURAN PETER DO Ot 250.40 DIAB W RENAL MANIFEST, TYPE II OR UNSPEC 06/28/2014 DURAN PETER DO Ot 272.4 HYPERLIPIDEMIA NEC/NOS 06/28/2014 DURAN PETER DO Ot 274.9 GOUT NOS 06/28/2014 DURAN PETER DO Ot 278.00 OBESITY, NOS 06/28/2014 DURAN PETER DO Ot 293.0 DELIRIUM DUE TO CONDITIONS CLASSIFIED EL 06/28/2014 DURAN PETER DO Ot 403.90 HYPTNSV CHR KID DIS, UNSPEC, W CHR KD ST 06/28/2014 DURAN PETER DO Ot 414.00 CORON ATHEROSCLER NOS TYPE VESSEL, NATIV 06/28/2014 DURAN PETER DO Ot 414.8 CHR ISCHEMIC HRT DIS NEC 06/28/2014 DURAN PETER DO Ot 427.31 ATRIAL FIBRILLATION 06/28/2014 DURAN PETER DO Ot 486 PNEUMONIA, ORGANISM NOS 06/28/2014 DURAN PETER DO Ot 571.5 CIRRHOSIS OF LIVER NOS 06/28/2014 DURAN PETER DO Ot 583.81 NEPHRITIS NOS IN OTH DIS 06/28/2014 DRUAN PETER DO Ot 585.3 CHRONIC KIDNEY DISEASE, STAGE III (MODER 06/28/2014 DURAN PETER DO Ot 715.90 OSTEOARTHROS NOS-UNSPEC 06/28/2014 DURAN PETER DO Ot 729.5 PAIN IN LIMB 06/28/2014 DURAN PETER DO Ot V42.7 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 STATUS 06/28/2014 DURAN PETER DO Ot V45.81 AORTOCORONARY BYPASS 06/28/2014 DURAN PETER DO Ot V58.67 LONG-TERM (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 OF INSULIN 06/28/2014 DURAN PETER DO Ot V85.32 BODY MASS INDEX 32.0-32.9, ADULT 07/03/2014 RUPERT DUPREE MD Ot V58.61 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S,LT,CURRENT USE 07/03/2014 RUPERT DUPREE MD Ot V58.83 ENCOUNTER FOR THERAPEUTIC DRUG MONITORIN 08/11/2014 RAZA FOOTE MD Ot V42.7 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 STATUS 08/11/2014 RAZA FOOTE MD Ot V58.44 AFTERCARE FOLLOWING ORGAN TRANSPLANT 08/11/2014 RAZA FOOTE MD Ot V58.69 OT MED,LT,CURRENT USE 09/29/2014 WOLFGANG , HECTOR K Ot 780.60 FEVER, UNSPECIFIED 09/29/2014 WOLFGANG DUARTE HECTOR K Ot V42.7 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 STATUS 10/14/2014 RUPERT DUPREE MD Ot V58.61 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S,LT,CURRENT USE 10/14/2014 RUPERT DUPREE MD Ot V58.83 ENCOUNTER FOR THERAPEUTIC DRUG MONITORIN 10/18/2014 DURAN PETER DO Ot 117.9 10/23/2014 RUPERT DUPREE MD Ot V58.61 10/23/2014 RUPERT DUPREE MD Ot V58.83 10/23/2014 RUPERT DUPREE MD Ot V58.61 10/23/2014 RUPERT DUPREE MD Ot V58.83 11/04/2014 OTHER, UNLISTED Ot 250.02 11/21/2014 RAZA FOOTE MD Ot V42.7 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 STATUS 11/21/2014 RAZA FOOTE MD Ot V58.44 AFTERCARE FOLLOWING ORGAN TRANSPLANT 11/21/2014 RAZA FOOTE MD Ot V58.69 OT MED,LT,CURRENT USE 11/21/2014 LEIA LANGE, RUPERT Crowell Ot V58.61 11/21/2014 LEIA LANGE, MIGUEL Ot V58.83 11/21/2014 DARY LANGE, RAZA Watt Ot 268.0 11/21/2014 DARY LANGE, RAZA Watt Ot 272.0 11/21/2014 DARY LANGE, RAZA Watt Ot V42.7 11/21/2014 OTHER, UNLISTED Ot 250.02 12/12/2014 LEIA LANGE, MIGUEL Ot V58.61 12/12/2014 LEIA LANGE, MIGUEL Ot V58.83 12/13/2014 Ot 571.5 12/13/2014 Ot 250.00 12/13/2014 Ot 789.00 12/13/2014 Ot 571.8 12/13/2014 Ot 368.2 12/13/2014 Ot V81.5 12/13/2014 Ot 571.8 12/13/2014 Ot 275.2 12/13/2014 Ot 285.9 12/13/2014 Ot 729.1 12/13/2014 Ot 268.9 12/13/2014 Ot 272.4 12/13/2014 Ot V42.7 12/13/2014 Ot V58.69 12/13/2014 Ot V72.84 12/13/2014 Ot 729.5 12/13/2014 Ot 411.1 12/13/2014 Ot V45.82 12/13/2014 Ot 411.1 12/13/2014 Ot 585.9 12/13/2014 Ot 268.9 12/13/2014 Ot 272.4 12/13/2014 Ot V42.7 12/13/2014 Ot 729.5 12/13/2014 Ot E000.8 12/13/2014 Ot E849.0 12/13/2014 Ot E884.9 12/13/2014 Ot 443.9 12/13/2014 Ot 729.5 12/13/2014 Ot 782.3 12/13/2014 Ot 250.00 12/13/2014 Ot 355.9 12/13/2014 Ot 729.81 12/13/2014 Ot 414.00 12/13/2014 Ot 782.3 12/13/2014 DARY LANGE, RAZA Watt Ot 723.0 12/13/2014 DARY LANGE, RAZA M Ot 733.90 12/13/2014 DARY LANGE, RAZA M Ot V42.7 12/13/2014 DARY LANGE, RAZA M Ot V58.69 12/13/2014 DARY LANGE, RAZA M Ot V82.81 12/13/2014 DARY LANGE, RAZA M Ot 268.9 12/13/2014 DARY LANGE, RAZA M Ot 272.4 12/13/2014 DARY LANGE, RAZA M Ot 733.00 12/13/2014 DARY LANGE, RAZA M Ot V42.7 12/13/2014 DARY LANGE, RAZA M Ot V58.69 12/13/2014 OTHER, UNLISTED Ot 250.02 12/13/2014 OTHER, UNLISTED Ot 780.79 12/13/2014 OTHER, UNLISTED Ot 780.99 12/13/2014 BRITTANI DUARTE, DURAN Dubois Ot 117.9 12/13/2014 LEIA LANGE, RUPERT Crowell Ot V58.61 12/13/2014 LEIA LANGE, RUPERT Crowell Ot V58.83 12/13/2014 DARY LANGE, RAZA M Ot 268.0 12/13/2014 DARY LANGE, RAZA M Ot 272.0 12/13/2014 DARY LANGE, RAZA M Ot V42.7 12/13/2014 OTHER, UNLISTED Ot 250.02 12/13/2014 DARY LANGE, RAZA M Ot V42.7 12/13/2014 DARY LANGE, RAZA M Ot V58.44 12/13/2014 DARY LANGE, RAZA M Ot V58.69 12/16/2014 BRITTANI DUARTE, DURAN Dubois Ot 733.90 12/16/2014 PETER DO, DURAN Dubois Ot V58.69 12/16/2014 PETERDURAN CABRALES DO Ot V82.81 01/07/2015 PETERDURAN CABRALES DO Ot 733.90 01/07/2015 PETER DO, DURAN Dubois Ot V58.69 01/07/2015 PETERDURAN CABRALES DO Ot V82.81 01/09/2015 LEIA LANGE, RUPERT Crowell Ot V58.61 01/09/2015 RUPERT DUPREE MD Ot V58.83 01/21/2015 RUPERT DUPREE MD Ot V58.61 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S,LT,CURRENT USE 01/21/2015 LEIA LANGE, RUPERT Crowell Ot V58.83 ENCOUNTER FOR THERAPEUTIC DRUG MONITORIN 02/10/2015 DARY LANGE, RAZA Watt Ot V42.7 02/10/2015 DARY LANGE, RAZA Alysa Ot V58.44 02/10/2015 DARY LANGE, RAZA Watt Ot V58.69 02/20/2015 LEIA LANGE, RUPERT Crowell Ot V58.61 02/20/2015 LEIA LANGE, RUPERT Crowell Ot V58.83 03/18/2015 LEIA LANGE, RUPERT Crowell Ot V58.61 03/18/2015 LEIA LANGE, RUPERT Crowell Ot V58.83 03/23/2015 DARIELA PARKER Ot 274.9 GOUT NOS 03/23/2015 DARIELA PARKER Ot 729.81 SWELLING OF LIMB 03/23/2015 DARIELA PARKER Ot V58.61 THELMALT,CURRENT USE 03/24/2015 Ot 571.5 03/24/2015 Ot 250.00 03/24/2015 Ot 789.00 03/24/2015 Ot 571.8 03/24/2015 Ot 368.2 03/24/2015 Ot V81.5 03/24/2015 Ot 571.8 03/24/2015 Ot 275.2 03/24/2015 Ot 285.9 03/24/2015 Ot 729.1 03/24/2015 Ot 268.9 03/24/2015 Ot 272.4 03/24/2015 Ot V42.7 03/24/2015 Ot V58.69 03/24/2015 Ot V72.84 03/24/2015 Ot 729.5 03/24/2015 Ot 411.1 03/24/2015 Ot V45.82 03/24/2015 Ot 411.1 03/24/2015 Ot 585.9 03/24/2015 Ot 268.9 03/24/2015 Ot 272.4 03/24/2015 Ot V42.7 03/24/2015 Ot 729.5 03/24/2015 Ot E000.8 03/24/2015 Ot E849.0 03/24/2015 Ot E884.9 03/24/2015 Ot 443.9 03/24/2015 Ot 729.5 03/24/2015 Ot 782.3 03/24/2015 Ot 250.00 03/24/2015 Ot 355.9 03/24/2015 Ot 729.81 03/24/2015 Ot 414.00 03/24/2015 Ot 782.3 03/24/2015 DARY LANGE, RAZA M Ot 723.0 03/24/2015 DARY LANGE, RAZA M Ot 733.90 03/24/2015 DARY LANGE, RAZA M Ot V42.7 03/24/2015 DARY LANGE, RAZA M Ot V58.69 03/24/2015 DARY LANGE, RAZA M Ot V82.81 03/24/2015 DARY LANGE, RAZA M Ot 268.9 03/24/2015 DARY LANGE, RAZA M Ot 272.4 03/24/2015 DRAY LANGE, RAZA M Ot 733.00 03/24/2015 DARY LANGE, RAZA M Ot V42.7 03/24/2015 DARY LANGE, RAZA M Ot V58.69 03/24/2015 OTHER, UNLISTED Ot 250.02 03/24/2015 OTHER, UNLISTED Ot 780.79 03/24/2015 OTHER, UNLISTED Ot 780.99 03/24/2015 DURAN PETER DO Ot 117.9 03/24/2015 DARY LANGE, RAZA M Ot 268.0 03/24/2015 DARY LANGE, RAZA M Ot 272.0 03/24/2015 DARY LANGE, RAZA M Ot V42.7 03/24/2015 OTHER, UNLISTED Ot 250.02 03/24/2015 DARY LANGE, RAZA M Ot V42.7 03/24/2015 DARY LANGE, RAZA M Ot V58.44 03/24/2015 DARY LANGE, RAZA M Ot V58.69 03/24/2015 DURAN PETER DO Ot 733.90 03/24/2015 DURAN PETER DO Ot V58.69 03/24/2015 DURAN PETER DO Ot V82.81 03/24/2015 RUPERT DUPREE MD Ot V58.61 03/24/2015 RUPERT DUPREE MD Ot V58.83 03/25/2015 Ot 571.5 03/25/2015 Ot 250.00 03/25/2015 Ot 789.00 03/25/2015 Ot 571.8 03/25/2015 Ot 368.2 03/25/2015 Ot V81.5 03/25/2015 Ot 571.8 03/25/2015 Ot 275.2 03/25/2015 Ot 285.9 03/25/2015 Ot 729.1 03/25/2015 Ot 268.9 03/25/2015 Ot 272.4 03/25/2015 Ot V42.7 03/25/2015 Ot V58.69 03/25/2015 Ot V72.84 03/25/2015 Ot 729.5 03/25/2015 Ot 411.1 03/25/2015 Ot V45.82 03/25/2015 Ot 411.1 03/25/2015 Ot 585.9 03/25/2015 Ot 268.9 03/25/2015 Ot 272.4 03/25/2015 Ot V42.7 03/25/2015 Ot 729.5 03/25/2015 Ot E000.8 03/25/2015 Ot E849.0 03/25/2015 Ot E884.9 03/25/2015 Ot 443.9 03/25/2015 Ot 729.5 03/25/2015 Ot 782.3 03/25/2015 Ot 250.00 03/25/2015 Ot 355.9 03/25/2015 Ot 729.81 03/25/2015 Ot 414.00 03/25/2015 Ot 782.3 03/25/2015 DARY LANGE, RAZA M Ot 723.0 03/25/2015 DARY LANGE, RAZA M Ot 733.90 03/25/2015 DARY LANGE, RAZA M Ot V42.7 03/25/2015 DARY LANGE, RAZA M Ot V58.69 03/25/2015 DARY LANGE, RAZA M Ot V82.81 03/25/2015 DARY LANGE, RAZA M Ot 268.9 03/25/2015 DARY LANGE, RAZA M Ot 272.4 03/25/2015 DARY LANGE, RAZA M Ot 733.00 03/25/2015 DARY LANGE, RAZA M Ot V42.7 03/25/2015 DARY LANGE, RAZA M Ot V58.69 03/25/2015 OTHER, UNLISTED Ot 250.02 03/25/2015 OTHER, UNLISTED Ot 780.79 03/25/2015 OTHER, UNLISTED Ot 780.99 03/25/2015 DURAN PETER DO Ot 117.9 03/25/2015 DARY LANGE, RAZA M Ot 268.0 03/25/2015 DARY LANGE, RAZA M Ot 272.0 03/25/2015 DARY LANGE, RAZA M Ot V42.7 03/25/2015 OTHER, UNLISTED Ot 250.02 03/25/2015 DARY LANGE, RAZA Watt Ot V42.7 03/25/2015 DARY LANGE, RAZA Watt Ot V58.44 03/25/2015 RAZA FOOTE MD Ot V58.69 03/25/2015 DURAN PETER DO Ot 733.90 03/25/2015 DURAN PETER DO Ot V58.69 03/25/2015 DURAN PETER DO Ot V82.81 03/25/2015 RUPERT DUPREE MD Ot V58.61 03/25/2015 RUPERT DUPREE MD Ot V58.83 03/27/2015 DURAN PETER DO Ot 682.4 04/02/2015 IRENE LANGE, WILLIAM Watt Ot 250.00 DIAB LAVONNE WO COMPL, TYPE II OR UNSPEC TY 04/02/2015 IRENE LANGE, WILLIAM Watt Ot 535.50 UNSP GASTRITIS GASTRODUODENITIS W/O ME 04/02/2015 IRENE LANGE, WILLIAM Watt Ot 553.3 DIAPHRAGMATIC HERNIA 04/02/2015 IRENE LANGE, WILLIAM Watt Ot 787.01 NAUSEA WITH VOMITING 04/02/2015 IRENE LANGE, WILLIAM Watt Ot V42.7 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 STATUS 04/02/2015 IRENE LANGE, WILLIAM Watt Ot V58.61 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S,LT,CURRENT USE 04/04/2015 DARY LANGE, RAZA Watt Ot V42.7 04/04/2015 RAZA FOOTE MD Ot V58.44 04/04/2015 RAZA FOOTE MD Ot V58.69 04/12/2015 RUPERT DUPREE MD Ot V58.61 04/12/2015 RUPERT DUPREE MD Ot V58.83 04/23/2015 RAZA FOOTE MD Ot V42.7 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 STATUS 04/23/2015 RAZA FOOTE MD Ot V58.44 AFTERCARE FOLLOWING ORGAN TRANSPLANT 04/23/2015 RAZA FOOTE MD Ot V58.69 OTH MED,LT,CURRENT USE 04/23/2015 RUPERT DUPREE MD Ot V58.61 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S,LT,CURRENT USE 04/23/2015 RUPERT DUPREE MD Ot V58.83 ENCOUNTER FOR THERAPEUTIC DRUG MONITORIN 04/25/2015 YAJAIRA PETER Ot 592.0 04/25/2015 BRITTANIYAJAIRA ENVIRONMENTAL FIELD OFFICE MANAGER Ot 789.2 04/25/2015 BRITTANIYAJAIRA ENVIRONMENTAL FIELD OFFICE MANAGER Ot 789.59 04/30/2015 BRITTANIYAJAIRA ENVIRONMENTAL FIELD OFFICE MANAGER Ot 592.0 04/30/2015 BRITTANIYAJAIRA ENVIRONMENTAL FIELD OFFICE MANAGER Ot 789.2 04/30/2015 BRITTANIYAJAIRA ENVIRONMENTAL FIELD OFFICE MANAGER Ot 789.59 05/06/2015 LEIA LANGE, RUPERT Crowell Ot V58.61 05/06/2015 LEAI LANGE, RUPERT Crowell Ot V58.83 05/12/2015 LEIA LANGE, RUPERT Crowell Ot V58.61 05/12/2015 LEIA LANGE, RUPERT Crowell Ot V58.83 05/21/2015 DURAN PETER DO Ot 486 05/21/2015 BRITTANI DUARTE, DURAN Dubois Ot 780.60 05/22/2015 BRITTANI DUARTE, DURAN Dubois Ot 486 05/22/2015 BRITTANI DUARTE, DURAN Sherly Ot 780.60 06/05/2015 LEIA LANGE, RUPERT Crowell Ot V58.61 06/05/2015 LEIA LANGE, RUPERT Crowell Ot V58.83 06/06/2015 LEIA LANGE, RUPERT Crowell Ot V42.7 06/06/2015 LEIA LANGE, RUPERT Crowell Ot V58.44 06/06/2015 LEIA LANGE, RUPERT Crowell Ot V58.69 06/06/2015 LEIA LANGE, RUPERT Crowell Ot V42.7 06/06/2015 LEIA LANGE, RUPERT Crowell Ot V58.44 06/06/2015 LEIA LANGE, RUPERT Crowell Ot V58.69 06/09/2015 LEIA LANGE, RUPERT Crowell Ot V42.7 06/09/2015 LEIA LANGE, RUPERT Crowell Ot V58.44 06/09/2015 LEIA LANGE, RUPERT Crowell Ot V58.69 06/22/2015 DURAN PETER DO Ot 682.4 CELLULITIS OF HAND 06/25/2015 LEIA LANGE, RUPERT Crowell Ot V58.61 06/25/2015 LEIA LANGE, RUPERT Crwoell Ot V58.83 06/30/2015 Ot 571.5 06/30/2015 Ot 250.00 06/30/2015 Ot 789.00 06/30/2015 Ot 571.8 06/30/2015 Ot 368.2 06/30/2015 Ot V81.5 06/30/2015 Ot 571.8 06/30/2015 Ot 275.2 06/30/2015 Ot 285.9 06/30/2015 Ot 729.1 06/30/2015 Ot 268.9 06/30/2015 Ot 272.4 06/30/2015 Ot V42.7 06/30/2015 Ot V58.69 06/30/2015 Ot V72.84 06/30/2015 Ot 729.5 06/30/2015 Ot 411.1 06/30/2015 Ot V45.82 06/30/2015 Ot 411.1 06/30/2015 Ot 585.9 06/30/2015 Ot 268.9 06/30/2015 Ot 272.4 06/30/2015 Ot V42.7 06/30/2015 Ot 729.5 06/30/2015 Ot E000.8 06/30/2015 Ot E849.0 06/30/2015 Ot E884.9 06/30/2015 Ot 443.9 06/30/2015 Ot 729.5 06/30/2015 Ot 782.3 06/30/2015 Ot 250.00 06/30/2015 Ot 355.9 06/30/2015 Ot 729.81 06/30/2015 Ot 414.00 06/30/2015 Ot 782.3 06/30/2015 DARY LANGE, RAZA M Ot 723.0 06/30/2015 DARY LANGE, RAZA M Ot 733.90 06/30/2015 DARY LANGE, RAZA M Ot V42.7 06/30/2015 DARY LANGE, RAZA M Ot V58.69 06/30/2015 DARY LANGE, RAZA M Ot V82.81 06/30/2015 DARY LANGE, RAZA M Ot 268.9 06/30/2015 DARY LANGE, RAZA M Ot 272.4 06/30/2015 DARY LANGE, RAZA M Ot 733.00 06/30/2015 DARY LANGE, RAZA M Ot V42.7 06/30/2015 DARY LANGE, RAZA M Ot V58.69 06/30/2015 OTHER, UNLISTED Ot 250.02 06/30/2015 OTHER, UNLISTED Ot 780.79 06/30/2015 OTHER, UNLISTED Ot 780.99 06/30/2015 DURAN PETER DO Ot 117.9 06/30/2015 DARY LANGE, RAZA Watt Ot 268.0 06/30/2015 DARY LANGE, RAZA M Ot 272.0 06/30/2015 DARY LANGE, RAZA Watt Ot V42.7 06/30/2015 OTHER, UNLISTED Ot 250.02 06/30/2015 DURAN PETER DO Ot 733.90 06/30/2015 DURAN PETER DO Ot V58.69 06/30/2015 DURAN PETER DO Ot V82.81 06/30/2015 YAJAIRA PETER ENVIRONMENTAL FIELD OFFICE MANAGER Ot 592.0 06/30/2015 YAJAIRA PETER ENVIRONMENTAL FIELD OFFICE MANAGER Ot 789.2 06/30/2015 YAJAIRA PETER ENVIRONMENTAL FIELD OFFICE MANAGER Ot 789.59 06/30/2015 IRENE LANGE, WILLIAM Alysa Ot V72.84 06/30/2015 LEIA LANGE, RUPERT Crowell Ot V58.61 06/30/2015 LEIA LANGE, RUPERT Crowell Ot V58.83 06/30/2015 LEIA LANGE, RUPERT Crowell Ot V42.7 06/30/2015 LEIA LANGE, RUPERT Crowell Ot V58.44 06/30/2015 LEIA LANGE, RUPERT Crowell Ot V58.69 06/30/2015 DURAN PETER DO Ot 486 06/30/2015 DURAN PETER DO Ot 780.60 06/30/2015 DURAN PETER DO Ot 682.4 06/30/2015 LEANDER MAYNARD MD Ot 275.2 DIS MAGNESIUM METABOLISM 06/30/2015 LEANDER MAYNARD MD Ot 780.60 FEVER, UNSPECIFIED 06/30/2015 LEANDER MAYNARD MD Ot 786.09 RESPIRATORY ABNORM NEC 06/30/2015 LEANDER MAYNARD MD Ot V42.7 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 STATUS 07/01/2015 DURAN PETER DO Ot 112.0 THRUSH 07/01/2015 DURAN PETER DO Ot 250.00 DIAB LAVONNE WO COMPL, TYPE II OR UNSPEC TY 07/01/2015 DURAN PETER DO Ot 427.31 ATRIAL FIBRILLATION 07/01/2015 BRITTANI DUARTE DURAN Sherly Ot 571.8 CHRONIC LIVER DIS NEC 07/01/2015 BRITTANI DUARTE DURAN Sherly Ot 715.90 OSTEOARTHROS NOS-UNSPEC 07/01/2015 BRITTANI DUARTE DURAN Sherly Ot 780.60 FEVER, UNSPECIFIED 07/01/2015 BRITTANI DUARET DURAN Sherly Ot V42.7 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 STATUS 07/01/2015 BRITTANI DUARTE DURAN Sherly Ot 112.0 07/01/2015 BRITTANI DUARTE DURAN [place] Ot 250.00 07/01/2015 BRITTANI DUARTE DURAN [place] Ot 427.31 07/01/2015 BRITTANI DUARTE DURAN [place] Ot 571.8 07/01/2015 BRITTANI DUARTE DURAN [place] Ot 715.90 07/01/2015 BRITTANI DUARTE DURAN [place] Ot 780.60 07/01/2015 BRITTANI DUARTE DURAN Sherly Ot V42.7 07/22/2015 RUPERT DUPREE MD Ot V42.7 07/22/2015 RUPERT DUPREE MD Ot V58.44 07/22/2015 RUPERT DUPREE MD, Ot V58.69 07/23/2015 DURAN PETER DO Ot V42.7 07/23/2015 DURAN PETER DO Ot V58.44 07/31/2015 DARY LANGE, RAZA Watt Ot 268.0 07/31/2015 DARY LANGE, RAZA Watt Ot 272.0 07/31/2015 DARY LANGE, RAZA Watt Ot V42.7 07/31/2015 DURAN PETER DO Ot V42.7 07/31/2015 DURAN PETER DO Ot V58.44 08/03/2015 RUPERT DUPREE MD Ot V58.61 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S,LT,CURRENT USE 08/03/2015 RUPERT DUPREE MD Ot V58.83 ENCOUNTER FOR THERAPEUTIC DRUG MONITORIN 08/03/2015 RUPERT DUPREE MD Ot Z51.81 ENCOUNTER FOR THERAPEUTIC DRUG LEVEL MON 08/03/2015 RUPERT DUPREE MD Ot 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 08/13/2015 RUPERT DUPREE MD Ot V42.7 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 STATUS 08/13/2015 RUPERT DUPREE MD, Ot V58.44 AFTERCARE FOLLOWING ORGAN TRANSPLANT 08/13/2015 LEIA LANGE, MIGUEL Ot V58.69 OT MED,LT,CURRENT USE 09/01/2015 LEIA LANGE, MIGUEL Ot V58.61 09/01/2015 LEIA LANGE, MIGUEL Ot V58.83 09/01/2015 LEIA LANGE, MIGUEL Ot Z51.81 09/01/2015 LEIA LANGE, MIGUEL Ot Z79.01 09/03/2015 LEIA LANGE, MIGUEL Ot V58.61 09/03/2015 LEIA LANGE, MIGUEL Ot V58.83 09/03/2015 LEIA LANGE, MIGUEL Ot Z51.81 09/03/2015 LEIA LANGE, MIGUEL Ot Z79.01 09/03/2015 LEIA LANGE, MIGUEL Ot V58.61 09/03/2015 LEIA LANGE, MIGUEL Ot V58.83 09/03/2015 LEIA LANGE, MIGUEL Ot Z51.81 09/03/2015 LEIA LANGE, MIGUEL Ot Z79.01 10/06/2015 LEIA LANGE, MIGUEL Ot V58.61 10/06/2015 LEIA LANGE, MIGUEL Ot V58.83 10/06/2015 LEIA LANGE, MIGUEL Ot Z51.81 10/06/2015 LEIA LANGE, MIGUEL Ot Z79.01 11/27/2015 LEIA LANGE, MIGUEL Ot Z51.81 ENCOUNTER FOR THERAPEUTIC DRUG LEVEL 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 12/18/2015 DARY LANGE, RAZA Watt Ot V42.7 12/18/2015 DARY LANGE, RAZA M Ot V58.44 12/18/2015 DARY LANGE, RAZA M Ot V58.69 12/19/2015 Ot N18.3 01/01/2016 Ot N18.3 01/09/2016 Ot N18.3 01/26/2016 JUDY LANGE, SRI G Ot N18.9 02/03/2016 DARY LANGE, RAZA M Ot Z48.298 02/03/2016 DARY LANGE, RAZA M Ot Z79.899 02/03/2016 RAZA FOOTE MD Ot Z94.4 02/03/2016 DURAN PETER DO, Ot E11.9 03/03/2016 RUPERT DUPREE MD Ot Z51.81 ENCOUNTER FOR THERAPEUTIC DRUG LEVEL MON 03/03/2016 RUPERT DUPREE MD, Ot Z79.01 [facility] (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 OF 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 03/10/2016 OTHER, UNLISTED Ot E11.9 TYPE 2 DIABETES MELLITUS WITHOUT COMPLIC 03/10/2016 OTHER, UNLISTED Ot E83.52 HYPERCALCEMIA 03/10/2016 OTHER, UNLISTED Ot M10.30 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 IMPAIRMENT, UNSPECIFIE 03/16/2016 RAZA FOOTE MD Ot Z48.298 ENCOUNTER FOR AFTERCARE FOLLOWING OTHER 03/16/2016 RAZA FOOTE MD, Ot Z79.899 OTHER FIELD CONTRACTOR (CURRENT) DRUG THERAPY 03/16/2016 RAZA FOOTE MD, Ot Z94.4 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 STATUS 03/16/2016 RUPERT DUPREE MD Ot Z51.81 ENCOUNTER FOR THERAPEUTIC DRUG LEVEL MON 03/16/2016 RUPERT DUPREE MD Ot Z79.01 [facility] (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 OF 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 03/17/2016 RUPERT DUPREE MD Ot Z51.81 ENCOUNTER FOR THERAPEUTIC DRUG LEVEL MON 03/17/2016 RUPERT DUPREE MD, Ot 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 03/31/2016 OTHER, UNLISTED Ot E11.9 TYPE 2 DIABETES MELLITUS WITHOUT COMPLIC 03/31/2016 OTHER, UNLISTED Ot E83.52 HYPERCALCEMIA 03/31/2016 OTHER, UNLISTED Ot M10.30 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 IMPAIRMENT, UNSPECIFIE 05/11/2016 RAZA FOOTE MD Ot E55.9 VITAMIN D DEFICIENCY, UNSPECIFIED 05/11/2016 RAZA FOOTE MD, Ot Z79.899 OTHER FIELD CONTRACTOR (CURRENT) DRUG THERAPY 05/13/2016 RAZA FOOTE MD, Ot E55.9 VITAMIN D DEFICIENCY, UNSPECIFIED 05/13/2016 RAZA FOOTE MD, Ot Z79.899 OTHER [facility] (CURRENT) DRUG THERAPY 05/28/2016 DURAN PETER DO Ot I70.213 ATHSCL [place] ARTERIES OF EXTRM W INTRMT 06/17/2016 DURAN PETER DO Ot M85.9 DISORDER OF BONE DENSITY AND STRUCTURE, 06/17/2016 DURAN PETER DO, Ot M85.9 DISORDER OF BONE DENSITY AND STRUCTURE, 06/18/2016 DURAN PETER DO, Ot M85.9 DISORDER OF BONE DENSITY AND STRUCTURE, 06/18/2016 RUPERT DUPREE MD Ot Z51.81 ENCOUNTER FOR THERAPEUTIC DRUG LEVEL MON 06/18/2016 RUPERT DUPREE MD Ot 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 06/18/2016 DURAN PETER DO Ot E55.9 VITAMIN D DEFICIENCY, UNSPECIFIED 06/18/2016 DURAN PETER DO, Ot M85.80 OTH DISRD OF BONE DENSITY AND STRUCTURE, 06/18/2016 DURAN PETER DO, Ot Z13.820 ENCOUNTER FOR SCREENING FOR OSTEOPOROSIS 06/25/2016 RAZA FOOTE MD Ot E55.9 VITAMIN D DEFICIENCY, UNSPECIFIED 06/25/2016 RAZA FOOTE MD Ot Z79.899 OTHER [facility] (CURRENT) DRUG THERAPY 07/01/2016 WILLIAM BONILLA MD Ot K21.9 GASTRO-ESOPHAGEAL REFLUX DISEASE WITHOUT 07/01/2016 WILLIAM BONILLA MD Ot Z01.818 ENCOUNTER FOR OTHER PREPROCEDURAL EXAMIN 07/02/2016 DURAN PETER DO Ot I70.213 ATHSCL [place] ARTERIES OF EXTRM W INTRMT 07/02/2016 WILLIAM BONILLA MD, Ot K21.9 GASTRO-ESOPHAGEAL REFLUX DISEASE WITHOUT 07/02/2016 WILLIAM BONILLA MD Ot Z01.818 ENCOUNTER FOR OTHER PREPROCEDURAL EXAMIN 07/05/2016 DURAN PETER DO, Ot E55.9 VITAMIN D DEFICIENCY, UNSPECIFIED 07/05/2016 DURAN PETER DO, Ot M85.80 OTH DISRD OF BONE DENSITY AND STRUCTURE, 07/05/2016 DURAN PETER DO Ot Z13.820 ENCOUNTER FOR SCREENING FOR OSTEOPOROSIS 07/06/2016 RUPERT DUPREE MD Ot Z51.81 ENCOUNTER FOR THERAPEUTIC DRUG LEVEL MON 07/06/2016 RUPERT DUPREE MD Ot Z79.01 [facility] (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 OF 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 07/14/2016 RAZA FOOTE MD Ot E55.9 VITAMIN D DEFICIENCY, UNSPECIFIED 07/14/2016 RAZA FOOTE MD Ot Z79.899 OTHER FIELD CONTRACTOR (CURRENT) DRUG THERAPY 07/14/2016 RAZA FOOTE MD Ot Z94.4 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 STATUS 07/15/2016 CAESAR LANGE, LEANDER Santiago Ot 275.2 DIS MAGNESIUM METABOLISM 07/15/2016 CAESAR LANGE, LEANDER Santiago Ot 780.60 FEVER, UNSPECIFIED 07/15/2016 CAESAR LANGE, LEANDER Santiago Ot 786.09 RESPIRATORY ABNORM NEC 07/15/2016 CAESAR LANGE, LEANDER Santiago Ot V42.7 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 STATUS 07/18/2016 LEIA LANGE, RUPERT Crowell Ot Z51.81 ENCOUNTER FOR THERAPEUTIC DRUG LEVEL MON 07/18/2016 RUPERT DUPREE MD Ot 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 08/09/2016 RAZA FOOTE MD Ot E55.9 VITAMIN D DEFICIENCY, UNSPECIFIED 08/09/2016 RAZA FOOTE MD Ot Z79.899 OTHER [facility] (CURRENT) DRUG THERAPY 08/09/2016 RAZA FOOTE MD Ot Z94.4 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 STATUS 08/10/2016 RAZA FOOTE MD Ot E55.9 VITAMIN D DEFICIENCY, UNSPECIFIED 08/10/2016 RAZA FOOTE MD Ot Z79.899 OTHER [facility] (CURRENT) DRUG THERAPY 08/10/2016 RAZA FOOTE MD Ot Z94.4 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 STATUS 08/10/2016 Ot 275.2 DIS MAGNESIUM METABOLISM 08/10/2016 Ot 285.9 ANEMIA NOS 08/10/2016 Ot 729.1 MYALGIA AND MYOSITIS NOS 08/10/2016 Ot 268.9 VITAMIN D DEFICIENCY NOS 08/10/2016 Ot 272.4 HYPERLIPIDEMIA NEC/NOS 08/10/2016 Ot V42.7 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 STATUS 08/10/2016 Ot V58.69 OTH MED,LT, CURRENT USE 08/10/2016 Ot V72.84 EXAM PRE- OPERATIVE NOS 08/10/2016 Ot 729.5 PAIN IN LIMB 08/10/2016 Ot 411.1 INTERMED CORONARY SYND 08/10/2016 Ot V45.82 PERCUTANEOUS TRANSLUM CORON ANGIOPLASTY 08/10/2016 Ot 411.1 INTERMED CORONARY SYND 08/10/2016 Ot 585.9 CHRONIC KIDNEY DISEASE, UNSPECIFIED 08/10/2016 Ot 268.9 VITAMIN D DEFICIENCY NOS 08/10/2016 Ot 272.4 HYPERLIPIDEMIA NEC/NOS 08/10/2016 Ot V42.7 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 STATUS 08/10/2016 Ot 729.5 PAIN IN LIMB 08/10/2016 Ot E000.8 OTHER EXTERNAL CAUSE STATUS 08/10/2016 Ot E849.0 ACCIDENT IN HOME 08/10/2016 Ot E884.9 FALL-1 LEVEL TO OTH NEC 08/10/2016 Ot 443.9 PERIPH VASCULAR DIS NOS 08/10/2016 Ot 729.5 PAIN IN LIMB 08/10/2016 Ot 782.3 EDEMA 08/10/2016 Ot 250.00 DIAB LAVONNE WO COMPL, TYPE II OR UNSPEC TY 08/10/2016 Ot 355.9 MONONEURITIS NOS 08/10/2016 Ot 729.81 SWELLING OF LIMB 08/10/2016 Ot 414.00 CORON ATHEROSCLER NOS TYPE VESSEL, NATIV 08/10/2016 Ot 782.3 EDEMA 08/10/2016 RAZA FOOTE MD Ot 723.0 CERVICAL SPINAL STENOSIS 08/10/2016 RAZA FOOTE MD Ot 733.90 BONE CARTILAGE DIS NOS 08/10/2016 RAZA FOOTE MD Ot V42.7 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 STATUS 08/10/2016 RAZA FOOTE MD Ot V58.69 OTH MED,LT,CURRENT USE 08/10/2016 RAZA FOOTE MD Ot V82.81 SCREENING FOR OSTEOPOROSIS 08/10/2016 RAZA FOOTE MD Ot 268.9 VITAMIN D DEFICIENCY NOS 08/10/2016 RAZA FOOTE MD Ot 272.4 HYPERLIPIDEMIA NEC/NOS 08/10/2016 RAZA FOOTE MD Ot 733.00 OSTEOPOROSIS NOS 08/10/2016 RAZA FOOTE MD Ot V42.7 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 STATUS 08/10/2016 RAZA FOOTE MD Ot V58.69 OTH MED,LT,CURRENT USE 08/10/2016 OTHER, UNLISTED Ot 250.02 DIAB LAVONNE WO COMPL, TYPE II OR UNSPEC TY 08/10/2016 OTHER, UNLISTED Ot 780.79 OTH MALAISE FATIGUE 08/10/2016 OTHER, UNLISTED Ot 780.99 OTHER GENERAL SYMPTOMS NOS 08/10/2016 DURAN PETER DO Ot 117.9 MYCOSES NEC NOS 08/10/2016 RAZA FOOTE MD Ot 268.0 RICKETS, ACTIVE 08/10/2016 RAZA FOOTE MD Ot 272.0 PURE HYPERCHOLESTEROLEM 08/10/2016 RAZA FOOTE MD Ot V42.7 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 STATUS 08/10/2016 OTHER, UNLISTED Ot 250.02 DIAB LAVONNE WO COMPL, TYPE II OR UNSPEC TY 08/10/2016 DURAN PETER DO Ot 733.90 BONE CARTILAGE DIS NOS 08/10/2016 DURAN PETER DO Ot V58.69 OTH MED,LT,CURRENT USE 08/10/2016 DURAN PETER DO Ot V82.81 SCREENING FOR OSTEOPOROSIS 08/10/2016 YAJAIRA PETER ENVIRONMENTAL FIELD OFFICE MANAGER Ot 592.0 CALCULUS OF KIDNEY 08/10/2016 YAJAIRA PETER ENVIRONMENTAL FIELD OFFICE MANAGER Ot 789.2 SPLENOMEGALY 08/10/2016 YAJAIRA PETER ENVIRONMENTAL FIELD OFFICE MANAGER Ot 789.59 OTHER ASCITES 08/10/2016 IRENE LANGE, WILLIAM Watt Ot V72.84 EXAM PRE-OPERATIVE NOS 08/10/2016 DURAN PETER DO Ot 486 PNEUMONIA, ORGANISM NOS 08/10/2016 DURAN PETER DO Ot 780.60 FEVER, UNSPECIFIED 08/10/2016 DURAN PETER DO Ot 682.4 CELLULITIS OF HAND 08/10/2016 DURAN PETER DO Ot V42.7 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 STATUS 08/10/2016 DURAN PETER DO Ot V58.44 AFTERCARE FOLLOWING ORGAN TRANSPLANT 08/10/2016 Ot N18.3 CHRONIC KIDNEY DISEASE, STAGE 3 (MODERAT 08/10/2016 JUDY LANGE, SRI G Ot N18.9 CHRONIC KIDNEY DISEASE, UNSPECIFIED 08/10/2016 DURAN PETER DO Ot E11.9 TYPE 2 DIABETES MELLITUS WITHOUT COMPLIC 08/10/2016 OTHER, CHELSEAISTED Ot E11.9 TYPE 2 DIABETES MELLITUS WITHOUT COMPLIC 08/10/2016 OTHER, CHELSEAISTED Ot E83.52 HYPERCALCEMIA 08/10/2016 OTHER, UNLISTED Ot M10.30 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 IMPAIRMENT, UNSPECIFIE 08/10/2016 RAZA FOOTE MD Ot Z48.298 ENCOUNTER FOR AFTERCARE FOLLOWING OTHER 08/10/2016 RAZA FOOTE MD Ot Z79.899 OTHER [facility] (CURRENT) DRUG THERAPY 08/10/2016 RAZA FOOTE MD Ot Z94.4 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 STATUS 08/10/2016 DURAN PETER DO Ot I70.213 ATHSCL [place] ARTERIES OF EXTRM W INTRMT 08/10/2016 DURAN PETER DO Ot E55.9 VITAMIN D DEFICIENCY, UNSPECIFIED 08/10/2016 DURAN PETER DO Ot M85.80 OTH DISRD OF BONE DENSITY AND STRUCTURE, 08/10/2016 DURAN PETER DO Ot Z13.820 ENCOUNTER FOR SCREENING FOR OSTEOPOROSIS 08/10/2016 RUPERT DUPREE MD Ot Z51.81 ENCOUNTER FOR THERAPEUTIC DRUG LEVEL MON 08/10/2016 RUPERT DUPREE MD Ot Z79.01 [facility] (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 OF 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 08/10/2016 RAZA FOOTE MD Ot E55.9 VITAMIN D DEFICIENCY, UNSPECIFIED 08/10/2016 RAZA FOOTE MD Ot Z79.899 OTHER [facility] (CURRENT) DRUG THERAPY 08/10/2016 RAZA FOOTE MD Ot Z94.4 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 STATUS 08/10/2016 KIMBERLY CANTOR MD Ot E11.9 TYPE 2 DIABETES MELLITUS WITHOUT COMPLIC 08/10/2016 KIMBERLY CANTOR MD Ot S61.212A LACERATION W/O FB OF R MID FINGER W/O DA 08/10/2016 KIMBERLY CANTOR MD Ot S61.214A LACERATION W/O FB OF R RNG FNGR W/O LUH 08/10/2016 KIMBERLY CANTOR MD Ot S61.310A LACERATION W/O FB OF R IDX FNGR W DAMAGE 08/10/2016 KIMBERLY CANTOR MD Ot S62.660A NONDISP FX OF DISTAL PHALANX OF RIGHT IN 08/10/2016 KIMBERLY CANTOR MD Ot W31.2XXA CONTACT W POWERED [employer] 08/10/2016 KIMBERLY CANTOR MD Ot Y92.[address] IN [facility] NON-INSTITUT (PRIVATE 08/10/2016 KIMBERLY CANTOR MD, Ot Y93.89 ACTIVITY, OTHER SPECIFIED 08/10/2016 KIMBERLY CANTOR MD, Ot Y99.8 OTHER EXTERNAL CAUSE STATUS 08/10/2016 KIMBERLY CANTOR MD Ot Z23 ENCOUNTER FOR IMMUNIZATION 08/10/2016 KIMBERLY CANTOR MD Ot Z79.01 [facility] (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 OF 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 08/10/2016 KIMBERLY CANTOR MD, Ot Z79.4 [facility] (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 OF INSULIN 08/10/2016 KIMBERLY CANTOR MD, Ot Z94.4 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 STATUS 08/10/2016 KIMBERLY CANTOR MD, Ot Z95.1 PRESENCE OF AORTOCORONARY BYPASS GRAFT 08/10/2016 KIMBERLY CANTOR MD, Ot Z95.5 PRESENCE OF CORONARY ANGIOPLASTY IMPLANT 08/15/2016 DURAN PETER DO, Ot A41.9 SEPSIS, UNSPECIFIED ORGANISM 08/15/2016 DURAN PETER DO, Ot E11.22 TYPE 2 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 MELLITUS W 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 08/15/2016 DURAN PETER DO, Ot E78.5 HYPERLIPIDEMIA, UNSPECIFIED 08/15/2016 DURAN PETER DO, Ot F41.9 ANXIETY DISORDER, UNSPECIFIED 08/15/2016 DURAN PETER DO, Ot G89.29 OTHER CHRONIC PAIN 08/15/2016 DURAN PETER DO, Ot I12.9 HYPERTENSIVE CHRONIC KIDNEY DISEASE W ST 08/15/2016 DURAN PETER DO, Ot I25.10 ATHSCL HEART DISEASE OF [place] CORONARY 08/15/2016 DURAN PETER DO, Ot I48.0 PAROXYSMAL ATRIAL FIBRILLATION 08/15/2016 DURAN PETER DO, Ot L03.011 CELLULITIS OF RIGHT FINGER 08/15/2016 DURAN PETER DO, Ot N18.9 CHRONIC KIDNEY DISEASE, UNSPECIFIED 08/15/2016 DURAN PETER DO, Ot S61.212D LACERATION W/O FB OF R MID FINGER W/O DA 08/15/2016 DURAN PETER DO, Ot S61.214D LACERATION W/O FB OF R RNG FNGR W/O LUH 08/15/2016 DURAN PETER DO, Ot S61.310D LACERATION W/O FB OF R IDX FNGR W DAMAGE 08/15/2016 DURAN PETER DO, Ot W31.2XXD CONTACT W POWERED [facility] [employer] 08/15/2016 DURAN PETER DO, Ot Z79.01 [facility] (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 OF 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 08/15/2016 DURAN PETER DO, Ot Z79.4 [facility] (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 OF INSULIN 08/15/2016 PETER DO, DURAN J Ot Z94.4 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 STATUS 08/15/2016 DURAN PETER DO Ot Z95.1 PRESENCE OF AORTOCORONARY BYPASS GRAFT 08/15/2016 DURAN PETER DO Ot Z95.5 PRESENCE OF CORONARY ANGIOPLASTY IMPLANT 08/17/2016 KIMBERLY CANTOR MD Ot E11.9 TYPE 2 DIABETES MELLITUS WITHOUT COMPLIC 08/17/2016 KIMBERLY CANTOR MD, Ot S61.212A LACERATION W/O FB OF R MID FINGER W/O DA 08/17/2016 KIMBERLY CANTOR MD, Ot S61.214A LACERATION W/O FB OF R RNG FNGR W/O LUH 08/17/2016 KIMBERLY CANTOR MD, Ot S61.310A LACERATION W/O FB OF R IDX FNGR W DAMAGE 08/17/2016 KIMBERLY CANTOR MD, Ot S62.660A NONDISP FX OF DISTAL PHALANX OF RIGHT IN 08/17/2016 KIMBERLY CANTOR MD, Ot W31.2XXA CONTACT W POWERED [facility] [employer] 08/17/2016 KIMBERLY CANTOR MD, Ot Y92.[address] IN [facility] NON-[facility]IT[facility] (PRIVATE 08/17/2016 KIMBERLY CANTOR MD, Ot Y93.89 ACTIVITY, OTHER SPECIFIED 08/17/2016 KIMBERLY CANTOR MD, Ot Y99.8 OTHER EXTERNAL CAUSE STATUS 08/17/2016 KIMBERLY CANTOR MD Ot Z23 ENCOUNTER FOR IMMUNIZATION 08/17/2016 KIMBERLY CATNOR MD Ot 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 08/17/2016 KIMBERLY CANTOR MD Ot Z79.4 FIELD CONTRACTOR (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 OF INSULIN 08/17/2016 IKMBERLY CANTOR MD, Ot Z94.4 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 STATUS 08/17/2016 KIMBERLY CANTOR MD, Ot Z95.1 PRESENCE OF AORTOCORONARY BYPASS GRAFT 08/17/2016 KIMBERLY CANTOR MD, Ot Z95.5 PRESENCE OF CORONARY ANGIOPLASTY IMPLANT 08/23/2016 RUPERT DUPREE MD Ot Z51.81 ENCOUNTER FOR THERAPEUTIC DRUG LEVEL MON 08/23/2016 RUPERT DUPREE MD Ot 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 08/31/2016 KIMBERLY CANTOR MD Ot E11.9 TYPE 2 DIABETES MELLITUS WITHOUT COMPLIC 08/31/2016 KIMBERLY CANTOR MD, Ot S61.212A LACERATION W/O FB OF R MID FINGER W/O DA 08/31/2016 KIMBERLY CANTOR MD, Ot S61.214A LACERATION W/O FB OF R RNG FNGR W/O LUH 08/31/2016 KIMBERLY CANTOR MD, Ot S61.310A LACERATION W/O FB OF R IDX FNGR W DAMAGE 08/31/2016 KIMBERLY CANTOR MD, Ot S62.660A NONDISP FX OF DISTAL PHALANX OF RIGHT IN 08/31/2016 KIMBERLY CANTOR MD, Ot W31.2XXA CONTACT W POWERED [employer] 08/31/2016 KIMBERLY CANTOR MD Ot Y92.[address] IN [facility] NON-INSTITUT (PRIVATE 08/31/2016 KIMBERLY CANTOR MD Ot Y93.89 ACTIVITY, OTHER SPECIFIED 08/31/2016 KIMBERLY CANTOR MD, Ot Y99.8 OTHER EXTERNAL CAUSE STATUS 08/31/2016 KIMBERLY CANTOR MD Ot Z23 ENCOUNTER FOR IMMUNIZATION 08/31/2016 KIMBERLY CANTOR MD Ot Z79.01 [facility] (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 OF 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 08/31/2016 KIMBERLY CANTOR MD Ot Z79.4 FIELD CONTRACTOR (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 OF INSULIN 08/31/2016 KIMBERLY CANTOR MD Ot Z94.4 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 STATUS 08/31/2016 KIMBERLY CANTOR MD Ot Z95.1 PRESENCE OF AORTOCORONARY BYPASS GRAFT 08/31/2016 KIMBERLY CANTOR MD Ot Z95.5 PRESENCE OF CORONARY ANGIOPLASTY IMPLANT 09/03/2016 RAZA FOOTE MD Ot Z79.899 OTHER FIELD CONTRACTOR (CURRENT) DRUG THERAPY 09/03/2016 RAZA FOOTE MD Ot Z94.4 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 STATUS 09/07/2016 RAZA FOOTE MD Ot Z79.899 OTHER [facility] (CURRENT) DRUG THERAPY 09/07/2016 RAZA FOOTE MD Ot Z94.4 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 STATUS 09/09/2016 ZRUPERT BURRIS MD Ot Z51.81 ENCOUNTER FOR THERAPEUTIC DRUG LEVEL MON 09/09/2016 RUPERT DUPREE MD Ot 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 10/01/2016 NANCY CARMICHAEL PA-C Ot E11.9 TYPE 2 DIABETES MELLITUS WITHOUT COMPLIC 10/01/2016 NANCY CARMICHAEL PA-C Ot Z79.4 FIELD CONTRACTOR (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 OF INSULIN 10/05/2016 RAZA FOOTE MD Ot Z79.899 OTHER [facility] (CURRENT) DRUG THERAPY 10/05/2016 RAZA FOOTE MD Ot Z94.4 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 STATUS 10/19/2016 RUPERT DUPREE MD Ot Z51.81 ENCOUNTER FOR THERAPEUTIC DRUG LEVEL MON 10/19/2016 RUPERT DUPREE MD Ot 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 11/01/2016 Ot 275.2 DIS MAGNESIUM METABOLISM 11/01/2016 Ot 285.9 ANEMIA NOS 11/01/2016 Ot 729.1 MYALGIA AND MYOSITIS NOS 11/01/2016 Ot 268.9 VITAMIN D DEFICIENCY NOS 11/01/2016 Ot 272.4 HYPERLIPIDEMIA NEC/NOS 11/01/2016 Ot V42.7 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 STATUS 11/01/2016 Ot V58.69 OTH MED,LT, CURRENT USE 11/01/2016 Ot V72.84 EXAM PRE- OPERATIVE NOS 11/01/2016 Ot 729.5 PAIN IN LIMB 11/01/2016 Ot 411.1 INTERMED CORONARY SYND 11/01/2016 Ot V45.82 PERCUTANEOUS TRANSLUM CORON ANGIOPLASTY 11/01/2016 Ot 411.1 INTERMED CORONARY SYND 11/01/2016 Ot 585.9 CHRONIC KIDNEY DISEASE, UNSPECIFIED 11/01/2016 Ot 268.9 VITAMIN D DEFICIENCY NOS 11/01/2016 Ot 272.4 HYPERLIPIDEMIA NEC/NOS 11/01/2016 Ot V42.7 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 STATUS 11/01/2016 Ot 729.5 PAIN IN LIMB 11/01/2016 Ot E000.8 OTHER EXTERNAL CAUSE STATUS 11/01/2016 Ot E849.0 ACCIDENT IN HOME 11/01/2016 Ot E884.9 FALL-1 LEVEL TO OTH NEC 11/01/2016 Ot 443.9 PERIPH VASCULAR DIS NOS 11/01/2016 Ot 729.5 PAIN IN LIMB 11/01/2016 Ot 782.3 EDEMA 11/01/2016 Ot 250.00 DIAB LAVONNE WO COMPL, TYPE II OR UNSPEC TY 11/01/2016 Ot 355.9 MONONEURITIS NOS 11/01/2016 Ot 729.81 SWELLING OF LIMB 11/01/2016 Ot 414.00 CORON ATHEROSCLER NOS TYPE VESSEL, NATIV 11/01/2016 Ot 782.3 EDEMA 11/01/2016 RAZA FOOTE MD Ot 723.0 CERVICAL SPINAL STENOSIS 11/01/2016 RAZA FOOTE MD Ot 733.90 BONE CARTILAGE DIS NOS 11/01/2016 RAZA FOOTE MD Ot V42.7 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 STATUS 11/01/2016 RAZA FOOTE MD Ot V58.69 OTH MED,LT,CURRENT USE 11/01/2016 RAZA FOOTE MD Ot V82.81 SCREENING FOR OSTEOPOROSIS 11/01/2016 RAZA FOOTE MD Ot 268.9 VITAMIN D DEFICIENCY NOS 11/01/2016 RAZA FOOTE MD Ot 272.4 HYPERLIPIDEMIA NEC/NOS 11/01/2016 RAZA FOOTE MD Ot 733.00 OSTEOPOROSIS NOS 11/01/2016 RAZA FOOTE MD Ot V42.7 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 STATUS 11/01/2016 RAZA FOOTE MD Ot V58.69 OTH MED,LT,CURRENT USE 11/01/2016 OTHER, UNLISTED Ot 250.02 DIAB LAVONNE WO COMPL, TYPE II OR UNSPEC TY 11/01/2016 OTHER, UNLISTED Ot 780.79 OTH MALAISE FATIGUE 11/01/2016 OTHER, UNLISTED Ot 780.99 OTHER GENERAL SYMPTOMS NOS 11/01/2016 DURAN PETER DO Ot 117.9 MYCOSES NEC NOS 11/01/2016 RAZA FOOTE MD Ot 268.0 RICKETS, ACTIVE 11/01/2016 RAZA FOOTE MD Ot 272.0 PURE HYPERCHOLESTEROLEM 11/01/2016 RAZA FOOTE MD Ot V42.7 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 STATUS 11/01/2016 OTHER, UNLISTED Ot 250.02 DIAB LAVONNE WO COMPL, TYPE II OR UNSPEC TY 11/01/2016 DURAN PETER DO Ot 733.90 BONE CARTILAGE DIS NOS 11/01/2016 DURAN PETER DO Ot V58.69 OTH MED,LT,CURRENT USE 11/01/2016 DURAN PETER DO Ot V82.81 SCREENING FOR OSTEOPOROSIS 11/01/2016 PETER, YAJAIRA L ENVIRONMENTAL FIELD OFFICE MANAGER Ot 592.0 CALCULUS OF KIDNEY 11/01/2016 BRITTANIFRANKLINYAJAIRA L ENVIRONMENTAL FIELD OFFICE MANAGER Ot 789.2 SPLENOMEGALY 11/01/2016 YAJAIRA PETER Spenser ENVIRONMENTAL FIELD OFFICE MANAGER Ot 789.59 OTHER ASCITES 11/01/2016 IRENE LANGE, WILLIAM Watt Ot V72.84 EXAM PRE-OPERATIVE NOS 11/01/2016 DURAN PETER DO Ot 486 PNEUMONIA, ORGANISM NOS 11/01/2016 DURAN PETER DO Ot 780.60 FEVER, UNSPECIFIED 11/01/2016 DURAN PETER DO Ot 682.4 CELLULITIS OF HAND 11/01/2016 DURAN PETER DO Ot V42.7 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 STATUS 11/01/2016 DURAN PETER DO Ot V58.44 AFTERCARE FOLLOWING ORGAN TRANSPLANT 11/01/2016 Ot N18.3 CHRONIC KIDNEY DISEASE, STAGE 3 (MODERAT 11/01/2016 JUDY LANGE, BILL Aponte Ot N18.9 CHRONIC KIDNEY DISEASE, UNSPECIFIED 11/01/2016 DURAN PETER DO Ot E11.9 TYPE 2 DIABETES MELLITUS WITHOUT COMPLIC 11/01/2016 OTHER, UNLISTED Ot E11.9 TYPE 2 DIABETES MELLITUS WITHOUT COMPLIC 11/01/2016 OTHER, UNLISTED Ot E83.52 HYPERCALCEMIA 11/01/2016 OTHER, UNLISTED Ot M10.30 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 IMPAIRMENT, UNSPECIFIE 11/01/2016 DARY LANGE, RAZA Watt Ot Z48.298 ENCOUNTER FOR AFTERCARE FOLLOWING OTHER 11/01/2016 DARY LANGE, RAZA Watt Ot Z79.899 OTHER [facility] (CURRENT) DRUG THERAPY 11/01/2016 DARY LANGE, RAZA Watt Ot Z94.4 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 STATUS 11/01/2016 DURAN PETER DO Ot I70.213 ATHSCL [place] ARTERIES OF EXTRM W INTRMT 11/01/2016 DURAN PETER DO Ot E55.9 VITAMIN D DEFICIENCY, UNSPECIFIED 11/01/2016 DURAN PETER DO Ot M85.80 OTH DISRD OF BONE DENSITY AND STRUCTURE, 11/01/2016 DURAN PETER DO Ot Z13.820 ENCOUNTER FOR SCREENING FOR OSTEOPOROSIS 11/01/2016 RAZA FOOTE MD Ot E55.9 VITAMIN D DEFICIENCY, UNSPECIFIED 11/01/2016 RAZA FOOTE MD, Ot Z79.899 OTHER FIELD CONTRACTOR (CURRENT) DRUG THERAPY 11/01/2016 RAZA FOOTE MD Ot Z94.4 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 STATUS 11/01/2016 RAZA FOOTE MD, Ot Z79.899 OTHER FIELD CONTRACTOR (CURRENT) DRUG THERAPY 11/01/2016 RAZA FOOTE MD, Ot Z94.4 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 STATUS 11/01/2016 NANCY CARMICHAEL PA-C Ot E11.9 TYPE 2 DIABETES MELLITUS WITHOUT COMPLIC 11/01/2016 NANCY CARMICHAEL PA-C Ot Z79.4 FIELD CONTRACTOR (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 OF INSULIN 11/01/2016 RUPERT DUPREE MD Ot Z51.81 ENCOUNTER FOR THERAPEUTIC DRUG LEVEL MON 11/01/2016 RUPERT DUPREE MD, Ot 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 11/03/2016 RUPERT DUPREE MD, Ot Z51.81 ENCOUNTER FOR THERAPEUTIC DRUG LEVEL MON 11/03/2016 RUPERT DUPREE MD, Ot Z79.01 [facility] (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 OF 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 11/14/2016 LEANDER MAYNARD MD Ot 275.2 DIS MAGNESIUM METABOLISM 11/14/2016 LEANDER MAYNARD MD T Ot 780.60 FEVER, UNSPECIFIED 11/14/2016 LEANDER MAYNARD MD T Ot 786.09 RESPIRATORY ABNORM NEC 11/14/2016 LEANDER MAYNARD MD Ot V42.7 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 STATUS 11/23/2016 RUPERT DUPREE MD Ot Z51.81 ENCOUNTER FOR THERAPEUTIC DRUG LEVEL MON 11/23/2016 RUPERT DUPREE MD Ot Z79.01 [facility] (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 OF 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 11/28/2016 RAZA FOOTE MD, Ot Z79.899 OTHER [facility] (CURRENT) DRUG THERAPY 11/28/2016 RAZA FOOTE MD, Ot Z94.4 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 STATUS 12/15/2016 KIMBERLY CANTOR MD, Ot E11.9 TYPE 2 DIABETES MELLITUS WITHOUT COMPLIC 12/15/2016 KIMBERLY CANTOR MD, Ot S61.212A LACERATION W/O FB OF R MID FINGER W/O DA 12/15/2016 KIMBERLY CANTOR MD, Ot S61.214A LACERATION W/O FB OF R RNG FNGR W/O LUH 12/15/2016 KIMBERLY CANTOR MD, Ot S61.310A LACERATION W/O FB OF R IDX FNGR W DAMAGE 12/15/2016 KIMBERLY CANTOR MD, Ot S62.660A NONDISP FX OF DISTAL PHALANX OF RIGHT IN 12/15/2016 KIMBERLY CANTOR MD, Ot W31.2XXA CONTACT W POWERED WOODWORKING AND FORMIN 12/15/2016 KIMBERLY CANTOR MD, Ot Y92.[address] IN [facility] NON-INSTITUT (PRIVATE 12/15/2016 KIMBERLY CANTOR MD, Ot Y93.89 ACTIVITY, OTHER SPECIFIED 12/15/2016 KIMBERLY CANTOR MD, Ot Y99.8 OTHER EXTERNAL CAUSE STATUS 12/15/2016 KIMBERLY CANTOR MD, Ot Z23 ENCOUNTER FOR IMMUNIZATION 12/15/2016 KIMBERLY CANTOR MD, Ot Z79.01 [facility] (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 OF 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 12/15/2016 KIMBERLY CANTOR MD, Ot Z79.4 [employer] (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 OF INSULIN 12/15/2016 KIMBERLY CANTOR MD, Ot Z94.4 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 STATUS 12/15/2016 KIMBERLY CANTOR MD, Ot Z95.1 PRESENCE OF AORTOCORONARY BYPASS GRAFT 12/15/2016 KIMBERLY CANTOR MD Ot Z95.5 PRESENCE OF CORONARY ANGIOPLASTY IMPLANT 12/24/2016 RUPERT DUPREE MD Ot Z51.81 ENCOUNTER FOR THERAPEUTIC DRUG LEVEL MON 12/24/2016 RUPERT DUPREE MD Ot 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 01/03/2017 RAZA FOOTE MD Ot Z79.899 OTHER [facility] (CURRENT) DRUG THERAPY 01/03/2017 RAZA FOOTE MD Ot Z94.4 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 STATUS 01/17/2017 RAZA FOOTE MD, Ot Z79.899 OTHER [employer] (CURRENT) DRUG THERAPY 01/17/2017 RAZA FOOTE MD, Ot Z94.4 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 STATUS 01/30/2017 RUPERT DUPREE MD Ot Z51.81 ENCOUNTER FOR THERAPEUTIC DRUG LEVEL MON 01/30/2017 RUPERT DUPREE MD, Ot Z79.01 [facility] (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 OF 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 02/03/2017 RAZA FOOTE MD, Ot Z79.899 OTHER [facility] [employer] (CURRENT) DRUG THERAPY 02/03/2017 RAZA FOOTE MD, Ot Z94.4 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 STATUS 04/03/2017 RAZA FOOTE MD, Ot Z79.899 OTHER [employer] (CURRENT) DRUG THERAPY 04/03/2017 RAZA FOOTE MD, Ot Z94.4 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 STATUS 04/11/2017 RUPERT DUPREE MD, Ot Z51.81 ENCOUNTER FOR THERAPEUTIC DRUG LEVEL MON 04/11/2017 RUPERT DUPREE MD, Ot Z79.01 [facility] (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 OF 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 04/19/2017 RUPERT DUPREE MD, Ot I48.0 PAROXYSMAL ATRIAL FIBRILLATION 04/19/2017 RUPERT DUPREE MD, Ot Z79.01 [facility] (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 OF 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 05/11/2017 RAZA FOOTE MD, Ot Z79.899 OTHER [employer] (CURRENT) DRUG THERAPY 05/11/2017 RAZA FOOTE MD, Ot Z94.4 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 STATUS 05/14/2017 KIMBERLY CANTOR MD Ot E11.9 TYPE 2 DIABETES MELLITUS WITHOUT COMPLIC 05/14/2017 KIMBERLY CANTOR MD Ot S61.212A LACERATION W/O FB OF R MID FINGER W/O DA 05/14/2017 KIMBERLY CANTOR MD Ot S61.214A LACERATION W/O FB OF R RNG FNGR W/O LUH 05/14/2017 KIMBERLY CANTOR MD, Ot S61.310A LACERATION W/O FB OF R IDX FNGR W DAMAGE 05/14/2017 KIMBERLY CANTOR MD Ot S62.660A NONDISP FX OF DISTAL PHALANX OF RIGHT IN 05/14/2017 KIMBERLY CANTOR MD, Ot W31.2XXA CONTACT W POWERED WOODWORKING AND FORMIN 05/14/2017 KIMBERLY CANTOR MD Ot Y92.[address] IN [facility] NON-INSTITUT (PRIVATE 05/14/2017 KIMBERLY CANTOR MD, Ot Y93.89 ACTIVITY, OTHER SPECIFIED 05/14/2017 KIMBERLY CANTOR MD, Ot Y99.8 OTHER EXTERNAL CAUSE STATUS 05/14/2017 KIMBERLY CANTOR MD, Ot Z23 ENCOUNTER FOR IMMUNIZATION 05/14/2017 KIMBERLY CANTOR MD, Ot 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 05/14/2017 KIMBERLY CANTOR MD, Ot Z79.4 [employer] (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 OF INSULIN 05/14/2017 KIMBERLY CANTOR MD, Ot Z94.4 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 STATUS 05/14/2017 KIMBERLY CANTOR MD, Ot Z95.1 PRESENCE OF AORTOCORONARY BYPASS GRAFT 05/14/2017 KIMBERLY CANTOR MD, Ot Z95.5 PRESENCE OF CORONARY ANGIOPLASTY IMPLANT 05/19/2017 RUPERT DUPREE MD, Ot I48.0 PAROXYSMAL ATRIAL FIBRILLATION 05/19/2017 RUPERT DUPREE MD, Ot Z79.01 [facility] (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 OF 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 06/06/2017 RAZA FOOTE MD Ot Z79.899 OTHER [facility] (CURRENT) DRUG THERAPY 06/06/2017 RAZA FOOTE MD, Ot Z94.4 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 STATUS 07/10/2017 RUPERT DUPREE MD, Ot I48.0 PAROXYSMAL ATRIAL FIBRILLATION 07/10/2017 RUPERT DUPREE MD, Ot 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 07/15/2017 LEANDER MAYNARD MD Ot 275.2 DIS MAGNESIUM METABOLISM 07/15/2017 LEANDER MAYNARD MD Ot 780.60 FEVER, UNSPECIFIED 07/15/2017 LEANDER MAYNARD MD Ot 786.09 RESPIRATORY ABNORM NEC 07/15/2017 LEANDER MAYNARD MD Ot V42.7 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 STATUS 07/15/2017 KIMBERLY CANTOR MD Ot E11.9 TYPE 2 DIABETES MELLITUS WITHOUT COMPLIC 07/15/2017 KIMBERLY CANTOR MD Ot S61.212A LACERATION W/O FB OF R MID FINGER W/O DA 07/15/2017 KIMBERLY CANTOR MD, Ot S61.214A LACERATION W/O FB OF R RNG FNGR W/O LUH 07/15/2017 KIMBERLY CANTOR MD Ot S61.310A LACERATION W/O FB OF R IDX FNGR W DAMAGE 07/15/2017 KIMBERLY CANTOR MD Ot S62.660A NONDISP FX OF DISTAL PHALANX OF RIGHT IN 07/15/2017 KIMBERLY CANTOR MD, Ot W31.2XXA CONTACT W POWERED [employer]OD[employer] AND FORMIN 07/15/2017 KIMBERLY CANTOR MD, Ot Y92.[address] IN [facility] NON-INSTITUT (PRIVATE 07/15/2017 KIMBERLY CANTOR MD, Ot Y93.89 ACTIVITY, OTHER SPECIFIED 07/15/2017 KIMBERLY CANTOR MD, Ot Y99.8 OTHER EXTERNAL CAUSE STATUS 07/15/2017 KIMBERLY CANTOR MD, Ot Z23 ENCOUNTER FOR IMMUNIZATION 07/15/2017 KIMBERLY CANTOR MD, Ot 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 07/15/2017 KIMBERLY CANTOR MD, Ot Z79.4 [facility] (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 OF INSULIN 07/15/2017 KIMBERLY CANTOR MD, Ot Z94.4 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 STATUS 07/15/2017 KIMBERLY CANTOR MD, Ot Z95.1 PRESENCE OF AORTOCORONARY BYPASS GRAFT 07/15/2017 KIMBERLY CANTOR MD, Ot Z95.5 PRESENCE OF CORONARY ANGIOPLASTY IMPLANT 07/15/2017 RUPERT DUPREE MD, Ot I48.0 PAROXYSMAL ATRIAL FIBRILLATION 07/15/2017 RUPERT DUPREE MD, Ot Z79.01 [facility] (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 OF 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 07/22/2017 DURAN PETER DO Ot R18.8 OTHER ASCITES 07/26/2017 RAZA FOOTE MD Ot Z94.4 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 STATUS 07/27/2017 DURAN PETER DO Ot R18.8 OTHER ASCITES 08/09/2017 RAZA FOOTE MD, Ot Z79.899 OTHER [facility] (CURRENT) DRUG THERAPY 08/09/2017 RAZA FOOTE MD Ot Z94.4 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 STATUS 08/23/2017 RAZA FOOTE MD, Ot Z79.899 OTHER [employer] (CURRENT) DRUG THERAPY 08/23/2017 RAZA FOOTE MD, Ot Z94.4 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 STATUS 08/24/2017 RUPERT DUPREE MD, Ot I48.0 PAROXYSMAL ATRIAL FIBRILLATION 08/24/2017 RUPERT DUPREE MD, Ot 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 08/26/2017 DURAN PETER DO Ot G47.10 HYPERSOMNIA, UNSPECIFIED 08/26/2017 DURAN PETER DO Ot G47.33 OBSTRUCTIVE SLEEP APNEA (ADULT) (PEDIATR 08/26/2017 DURAN PETER DO Ot I10 ESSENTIAL (PRIMARY) HYPERTENSION 09/19/2017 RAZA FOOTE MD Ot Z79.899 OTHER [employer] (CURRENT) DRUG THERAPY 09/19/2017 RAZA FOOTE MD Ot Z94.4 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 STATUS 09/21/2017 DURAN PETER DO Ot R18.8 OTHER ASCITES 09/22/2017 WILLIAM BONILLA MD Ot E78.00 PURE HYPERCHOLESTEROLEMIA, UNSPECIFIED 09/22/2017 WILLIAM BONILLA MD Ot I10 ESSENTIAL (PRIMARY) HYPERTENSION 09/22/2017 WILLIAM BONILLA MD Ot I48.91 UNSPECIFIED ATRIAL FIBRILLATION 09/22/2017 WILLIAM BONILLA MD Ot R18.8 OTHER ASCITES 09/22/2017 WILLIAM BONILLA MD Ot 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 09/22/2017 WILLIAM BONILLA MD Ot Z79.4 FI[employer] (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 OF INSULIN 09/22/2017 WILLIAM BONILLA MD Ot Z94.4 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 STATUS 09/22/2017 WILLIAM BONILLA MD Ot Z95.1 PRESENCE OF AORTOCORONARY BYPASS GRAFT 09/22/2017 WILLIAM BONILLA MD Ot Z95.5 PRESENCE OF CORONARY ANGIOPLASTY IMPLANT 10/05/2017 DURAN PETER DO Ot R18.8 OTHER ASCITES 10/05/2017 WILLIAM BONILLA MD Ot E78.00 PURE HYPERCHOLESTEROLEMIA, UNSPECIFIED 10/05/2017 WILLIAM BONILLA MD Ot I10 ESSENTIAL (PRIMARY) HYPERTENSION 10/05/2017 WILLIAM BONILLA MD Ot I48.91 UNSPECIFIED ATRIAL FIBRILLATION 10/05/2017 WILLIAM BONILLA MD Ot R18.8 OTHER ASCITES 10/05/2017 WILLIAM BONILLA MD Ot Z79.01 [facility] (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 OF 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 10/05/2017 WILLIAM BONILLA MD Ot Z79.4 [facility] (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 OF INSULIN 10/05/2017 WILLIAM BONILLA MD Ot Z94.4 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 STATUS 10/05/2017 WILLIAM BONILLA MD Ot Z95.1 PRESENCE OF AORTOCORONARY BYPASS GRAFT 10/05/2017 IRENE LANGE, WILLIAM Watt Ot Z95.5 PRESENCE OF CORONARY ANGIOPLASTY IMPLANT 10/07/2017 RUPERT DUPREE MD Ot I48.0 PAROXYSMAL ATRIAL FIBRILLATION 10/07/2017 RUPERT DUPREE MD, Ot 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 10/10/2017 RAZA FOOTE MD Ot Z79.899 OTHER [employer] (CURRENT) DRUG THERAPY 10/10/2017 RAZA FOOTE MD Ot Z94.4 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 STATUS 10/11/2017 DURAN PETER DO Ot G47.33 OBSTRUCTIVE SLEEP APNEA (ADULT) (PEDIATR 10/11/2017 PETERDURAN CABRALES DO Ot G47.33 OBSTRUCTIVE SLEEP APNEA (ADULT) (PEDIATR 10/13/2017 PETERDURAN CABRALES DO Ot G47.33 OBSTRUCTIVE SLEEP APNEA (ADULT) (PEDIATR 10/14/2017 PETERDURAN CABRALES DO Ot G47.33 OBSTRUCTIVE SLEEP APNEA (ADULT) (PEDIATR 11/21/2017 RUPERT DUPREE MD, Ot I48.0 PAROXYSMAL ATRIAL FIBRILLATION 11/21/2017 RUPERT DUPREE MD Ot Z51.81 ENCOUNTER FOR THERAPEUTIC DRUG LEVEL MON 11/21/2017 RUPERT DUPREE MD, Ot 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 11/21/2017 RAZA FOOTE MD Ot Z79.899 OTHER FIELD [employer] (CURRENT) DRUG THERAPY 11/21/2017 RAZA FOOTE MD Ot Z94.4 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 STATUS 12/06/2017 DURAN PETER DO Ot R07.81 PLEURODYNIA 12/06/2017 DURAN PETER DO Ot W19.XXXA UNSPECIFIED FALL, INITIAL ENCOUNTER 12/23/2017 DURAN PETER DO Ot R07.81 PLEURODYNIA 12/23/2017 DURAN PETER DO Ot W19.XXXA UNSPECIFIED FALL, INITIAL ENCOUNTER 12/28/2017 DURAN PETER DO Ot R07.81 PLEURODYNIA 12/28/2017 DURAN PETER DO Ot W19.XXXA UNSPECIFIED FALL, INITIAL ENCOUNTER 02/15/2018 DURAN PETER DO Ot J98.4 OTHER DISORDERS OF LUNG 02/15/2018 DURAN PETER DO Ot R91.8 OTHER NONSPECIFIC ABNORMAL FINDING OF SOHAIL 02/15/2018 DURAN PETER DO Ot J98.4 OTHER DISORDERS OF LUNG 02/15/2018 DURAN PETER DO, Ot R91.8 OTHER NONSPECIFIC ABNORMAL FINDING OF SOHAIL Procedures Code Description Performed By Performed On J3420 B12 VITAMIN INJECTION 04/03/2009 [facility] Jacky Blanton 04/21/2009 38.93 VENOUS CATHETERIZATION NEC 07/27/2012 [id number] INSERTION OF INFUSION DEV INTO SUP VENA 08/13/2016 Results Test Result Range Complete blood count (CBC) with automated white blood cell (WBC) differential - 06/15/16 14:24 Blood leukocytes automated count (number/volume) 6.5 10*3/uL 4.3-11.0 Blood erythrocytes automated count (number/volume) 5.22 10*6/uL 4.35-5.85 Venous blood hemoglobin measurement (mass/volume) 13.3 g/dL 13.3-17.7 Blood hematocrit (volume fraction) 43 % 40-54 Automated erythrocyte mean corpuscular volume 83 [foz_us] 80-99 Automated erythrocyte mean corpuscular hemoglobin (mass per erythrocyte) 26 pg 25-34 Automated erythrocyte mean corpuscular hemoglobin concentration measurement ( mass/volume) 31 g/dL 32-36 Automated erythrocyte distribution width ratio 15.9 % 10.0-14.5 Automated blood platelet count (count/volume) 162 10*3/uL 130-400 Automated blood platelet mean volume measurement 10.0 [foz_us] 7.4-10.4 Automated blood neutrophils/100 leukocytes 78 % 42-75 Automated blood lymphocytes/100 leukocytes 13 % 12-44 Blood monocytes/100 leukocytes 7 % 0-12 Automated blood eosinophils/100 leukocytes 1 % 0-10 Automated blood basophils/100 leukocytes 1 % 0-10 Blood neutrophils automated count (number/volume) 5.1 10*3 1.8-7.8 Blood lymphocytes automated count (number/volume) 0.8 10*3 1.0-4.0 Blood monocytes automated count (number/volume) 0.5 10*3 0.0-1.0 Automated eosinophil count 0.1 10*3/uL 0.0-0.3 Automated blood basophil count (count/volume) 0.0 10*3/uL 0.0-0.1 Comprehensive metabolic panel - 06/15/16 14:24 Serum or plasma sodium measurement (moles/volume) 141 mmol/L 135-145 Serum or plasma potassium measurement (moles/volume) 4.2 mmol/L 3.6-5.0 Serum or plasma chloride measurement (moles/volume) 103 mmol/L 98-107 Carbon dioxide 29 mmol/L 21-32 Serum or plasma anion gap determination (moles/volume) 9 mmol/L 5-14 Serum or plasma urea nitrogen measurement (mass/volume) 23 mg/dL 7-18 Serum or plasma creatinine measurement (mass/volume) 1.93 mg/dL 0.60-1.30 Serum or plasma urea nitrogen/creatinine mass ratio 12 NRG Serum or plasma creatinine measurement with calculation of estimated glomerular filtration rate 34 NRG Serum or plasma glucose measurement (mass/volume) 143 mg/dL 70-105 Serum or plasma calcium measurement (mass/volume) 9.1 mg/dL 8.5-10.1 Serum or plasma total bilirubin measurement (mass/volume) 1.3 mg/dL 0.1-1.0 Serum or plasma alkaline phosphatase measurement (enzymatic activity/volume) 87 U/L 40-136 Serum or plasma aspartate aminotransferase measurement (enzymatic activity/ volume) 8 U/L 5-34 Serum or plasma alanine aminotransferase measurement (enzymatic activity/volume ) 7 U/L 0-55 Serum or plasma protein measurement (mass/volume) 6.4 g/dL 6.4-8.2 Serum or plasma albumin measurement (mass/volume) 4.2 g/dL 3.2-4.5 Serum or plasma phosphate measurement (mass/volume) - 06/15/16 14:24 Serum or plasma phosphate measurement (mass/volume) 3.0 mg/dL 2.3-4.7 Magnesium - 06/15/16 14:24 Magnesium 1.5 mg/dL 1.8-2.4 FK 506 - 06/15/16 14:24 Tacrolimus blood 9.2 % NRG GGT (gamma glutamyl transferase) - 06/15/16 14:24 GGT (gamma glutamyl transferase) 27 U/L 0-65 PT panel in platelet poor plasma by coagulation assay - 06/15/16 14:26 Prothrombin time (PT) in platelet poor plasma by coagulation assay 31.6 s 12.2-14.7 INR in platelet poor plasma or blood by coagulation assay 3.0 0.8-1.4 PT panel in platelet poor plasma by coagulation assay - 07/12/16 10:12 Prothrombin time (PT) in platelet poor plasma by coagulation assay 32.9 s 12.2-14.7 INR in platelet poor plasma or blood by coagulation assay 3.2 0.8-1.4 PT panel in platelet poor plasma by coagulation assay - 07/21/16 16:09 Prothrombin time (PT) in platelet poor plasma by coagulation assay 23.1 s 12.2-14.7 INR in platelet poor plasma or blood by coagulation assay 2.1 0.8-1.4 Complete blood count (CBC) with automated white blood cell (WBC) differential - 08/13/16 09:40 Blood leukocytes automated count (number/volume) 11.8 10*3/uL 4.3-11.0 Blood erythrocytes automated count (number/volume) 5.34 10*6/uL 4.35-5.85 Venous blood hemoglobin measurement (mass/volume) 13.9 g/dL 13.3-17.7 Blood hematocrit (volume fraction) 43 % 40-54 Automated erythrocyte mean corpuscular volume 81 [foz_us] 80-99 Automated erythrocyte mean corpuscular hemoglobin (mass per erythrocyte) 26 pg 25-34 Automated erythrocyte mean corpuscular hemoglobin concentration measurement ( mass/volume) 32 g/dL 32-36 Automated erythrocyte distribution width ratio 15.2 % 10.0-14.5 Automated blood platelet count (count/volume) 154 10*3/uL 130-400 Automated blood platelet mean volume measurement 9.8 [foz_us] 7.4-10.4 Automated blood neutrophils/100 leukocytes 90 % 42-75 Automated blood lymphocytes/100 leukocytes 4 % 12-44 Blood monocytes/100 leukocytes 5 % 0-12 Automated blood eosinophils/100 leukocytes 0 % 0-10 Automated blood basophils/100 leukocytes 0 % 0-10 Blood neutrophils automated count (number/volume) 10.6 10*3 1.8-7.8 Blood lymphocytes automated count (number/volume) 0.5 10*3 1.0-4.0 Blood monocytes automated count (number/volume) 0.6 10*3 0.0-1.0 Automated eosinophil count 0.0 10*3/uL 0.0-0.3 Automated blood basophil count (count/volume) 0.0 10*3/uL 0.0-0.1 PT panel in platelet poor plasma by coagulation assay - 08/13/16 09:40 Prothrombin time (PT) in platelet poor plasma by coagulation assay 20.9 s 12.2-14.7 INR in platelet poor plasma or blood by coagulation assay 1.8 0.8-1.4 Activated partial thromboplastin time (aPTT) in platelet poor plasma bycoagulation assay - 08/13/16 09:40 Activated partial thromboplastin time (aPTT) in platelet poor plasma bycoagulation assay 33 s 24-35 Blood lactic acid measurement (moles/volume) - 08/13/16 09:40 Blood lactic acid measurement (moles/volume) 1.7 mmol/L 0.5-2.0 Comprehensive metabolic panel - 08/13/16 09:40 Serum or plasma sodium measurement (moles/volume) 134 mmol/L 135-145 Serum or plasma potassium measurement (moles/volume) 4.3 mmol/L 3.6-5.0 Serum or plasma chloride measurement (moles/volume) 93 mmol/L 98-107 Carbon dioxide 28 mmol/L 21-32 Serum or plasma anion gap determination (moles/volume) 13 mmol/L 5-14 Serum or plasma urea nitrogen measurement (mass/volume) 30 mg/dL 7-18 Serum or plasma creatinine measurement (mass/volume) 2.16 mg/dL 0.60-1.30 Serum or plasma urea nitrogen/creatinine mass ratio 14 NRG Serum or plasma creatinine measurement with calculation of estimated glomerular filtration rate 30 NRG Serum or plasma glucose measurement (mass/volume) 213 mg/dL 70-105 Serum or plasma calcium measurement (mass/volume) 9.4 mg/dL 8.5-10.1 Serum or plasma total bilirubin measurement (mass/volume) 2.2 mg/dL 0.1-1.0 Serum or plasma alkaline phosphatase measurement (enzymatic activity/volume) 80 U/L 40-136 Serum or plasma aspartate aminotransferase measurement (enzymatic activity/ volume) 10 U/L 5-34 Serum or plasma alanine aminotransferase measurement (enzymatic activity/volume ) < U/L 0-55 Serum or plasma protein measurement (mass/volume) 6.3 g/dL 6.4-8.2 Serum or plasma albumin measurement (mass/volume) 4.1 g/dL 3.2-4.5 Blood manual differential performed detection - 08/13/16 09:40 Blood monocytes/100 leukocytes 3 % NRG Manual blood segmented neutrophils/100 leukocytes 79 % NRG Blood band neutrophils/100 leukocytes 15 % NRG Manual blood lymphocytes/100 leukocytes 3 % NRG Manual eosinophils/100 leukocytes in nose 0 % NRG Manual blood basophils/100 leukocytes 0 % NRG Blood polychromasia detection by light microscopy SLIGHT NRG Blood anisocytosis detection by light microscopy SLIGHT NRG Blood ovalocytes detection by light microscopy SLIGHT NRG Bacterial blood culture - 08/13/16 09:40 Bacterial blood culture NG NRG Complete urinalysis with reflex to culture - 08/13/16 10:32 Urine color determination YELLOW NRG Urine clarity determination CLEAR NRG Urine pH measurement by test strip 6.5 5-9 Specific gravity of urine by test strip 1.015 1.016- 1.022 Urine protein assay by test strip, semi-quantitative 3+ NEGATIVE Urine glucose detection by automated test strip NEGATIVE NEGATIVE Erythrocytes detection in urine sediment by light microscopy 2+ NEGATIVE Urine ketones detection by automated test strip NEGATIVE NEGATIVE Urine nitrite detection by test strip NEGATIVE NEGATIVE Urine total bilirubin detection by test strip NEGATIVE NEGATIVE Urine urobilinogen measurement by automated test strip (mass/volume) 1 mg/dL NORMAL Urine leukocyte esterase detection by dipstick 1+ NEGATIVE Automated urine sediment erythrocyte count by microscopy (number/high power field) [HPF] NRG Automated urine sediment leukocyte count by microscopy (number/high power field ) [HPF] NRG Bacteria detection in urine sediment by light microscopy TRACE NRG Squamous epithelial cells detection in urine sediment by light microscopy RARE NRG Crystals detection in urine sediment by light microscopy NONE NRG Casts detection in urine sediment by light microscopy NONE NRG Mucus detection in urine sediment by light microscopy NEGATIVE NRG Complete urinalysis with reflex to culture NO NRG Bacterial urine culture - 08/13/16 10:32 Bacterial urine culture NG NRG Bacterial blood culture - 08/13/16 10:35 Bacterial blood culture NG NRG Influenza virus A and B antigen detection - 08/13/16 12:20 FLU RESULT NEGATIVE FOR INFLUENZA A AND B ANTIGENS BY IA NRG Capillary blood glucose measurement by glucometer (mass/volume) - 08/13/16 20: 44 Capillary blood glucose measurement by glucometer (mass/volume) 213 mg/dL 70-110 PT panel in platelet poor plasma by coagulation assay - 08/14/16 04:25 Prothrombin time (PT) in platelet poor plasma by coagulation assay 21.2 s 12.2-14.7 INR in platelet poor plasma or blood by coagulation assay 1.9 0.8-1.4 Complete blood count (CBC) with automated white blood cell (WBC) differential - 08/14/16 04:25 Blood leukocytes automated count (number/volume) 7.7 10*3/uL 4.3-11.0 Blood erythrocytes automated count (number/volume) 4.44 10*6/uL 4.35-5.85 Venous blood hemoglobin measurement (mass/volume) 11.4 g/dL 13.3-17.7 Blood hematocrit (volume fraction) 37 % 40-54 Automated erythrocyte mean corpuscular volume 83 [foz_us] 80-99 Automated erythrocyte mean corpuscular hemoglobin (mass per erythrocyte) 26 pg 25-34 Automated erythrocyte mean corpuscular hemoglobin concentration measurement ( mass/volume) 31 g/dL 32-36 Automated erythrocyte distribution width ratio 15.1 % 10.0-14.5 Automated blood platelet count (count/volume) 116 10*3/uL 130-400 Automated blood platelet mean volume measurement 10.5 [foz_us] 7.4-10.4 Automated blood neutrophils/100 leukocytes 83 % 42-75 Automated blood lymphocytes/100 leukocytes 9 % 12-44 Blood monocytes/100 leukocytes 6 % 0-12 Automated blood eosinophils/100 leukocytes 2 % 0-10 Automated blood basophils/100 leukocytes 0 % 0-10 Blood neutrophils automated count (number/volume) 6.4 10*3 1.8-7.8 Blood lymphocytes automated count (number/volume) 0.7 10*3 1.0-4.0 Blood monocytes automated count (number/volume) 0.4 10*3 0.0-1.0 Automated eosinophil count 0.1 10*3/uL 0.0-0.3 Automated blood basophil count (count/volume) 0.0 10*3/uL 0.0-0.1 Comprehensive metabolic panel - 08/14/16 04:25 Serum or plasma sodium measurement (moles/volume) 136 mmol/L 135-145 Serum or plasma potassium measurement (moles/volume) 3.7 mmol/L 3.6-5.0 Serum or plasma chloride measurement (moles/volume) 100 mmol/L 98-107 Carbon dioxide 23 mmol/L 21-32 Serum or plasma anion gap determination (moles/volume) 13 mmol/L 5-14 Serum or plasma urea nitrogen measurement (mass/volume) 30 mg/dL 7-18 Serum or plasma creatinine measurement (mass/volume) 1.79 mg/dL 0.60-1.30 Serum or plasma urea nitrogen/creatinine mass ratio 17 NRG Serum or plasma creatinine measurement with calculation of estimated glomerular filtration rate 38 NRG Serum or plasma glucose measurement (mass/volume) 195 mg/dL 70-105 Serum or plasma calcium measurement (mass/volume) 8.4 mg/dL 8.5-10.1 Serum or plasma total bilirubin measurement (mass/volume) 2.1 mg/dL 0.1-1.0 Serum or plasma alkaline phosphatase measurement (enzymatic activity/volume) 58 U/L 40-136 Serum or plasma aspartate aminotransferase measurement (enzymatic activity/ volume) 11 U/L 5-34 Serum or plasma alanine aminotransferase measurement (enzymatic activity/volume ) 7 U/L 0-55 Serum or plasma protein measurement (mass/volume) 4.9 g/dL 6.4-8.2 Serum or plasma albumin measurement (mass/volume) 3.2 g/dL 3.2-4.5 Capillary blood glucose measurement by glucometer (mass/volume) - 08/14/16 12: 00 Capillary blood glucose measurement by glucometer (mass/volume) 159 mg/dL 70-110 Capillary blood glucose measurement by glucometer (mass/volume) - 08/14/16 15: 44 Capillary blood glucose measurement by glucometer (mass/volume) 147 mg/dL 70-110 Capillary blood glucose measurement by glucometer (mass/volume) - 08/14/16 20: 48 Capillary blood glucose measurement by glucometer (mass/volume) 98 mg/dL 70-110 Complete blood count (CBC) with automated white blood cell (WBC) differential - 08/15/16 06:00 Blood leukocytes automated count (number/volume) 7.1 10*3/uL 4.3-11.0 Blood erythrocytes automated count (number/volume) 4.54 10*6/uL 4.35-5.85 Venous blood hemoglobin measurement (mass/volume) 11.7 g/dL 13.3-17.7 Blood hematocrit (volume fraction) 38 % 40-54 Automated erythrocyte mean corpuscular volume 83 [foz_us] 80-99 Automated erythrocyte mean corpuscular hemoglobin (mass per erythrocyte) 26 pg 25-34 Automated erythrocyte mean corpuscular hemoglobin concentration measurement ( mass/volume) 31 g/dL 32-36 Automated erythrocyte distribution width ratio 15.5 % 10.0-14.5 Automated blood platelet count (count/volume) 135 10*3/uL 130-400 Automated blood platelet mean volume measurement 10.0 [foz_us] 7.4-10.4 Automated blood neutrophils/100 leukocytes 80 % 42-75 Automated blood lymphocytes/100 leukocytes 9 % 12-44 Blood monocytes/100 leukocytes 9 % 0-12 Automated blood eosinophils/100 leukocytes 2 % 0-10 Automated blood basophils/100 leukocytes 0 % 0-10 Blood neutrophils automated count (number/volume) 5.7 10*3 1.8-7.8 Blood lymphocytes automated count (number/volume) 0.6 10*3 1.0-4.0 Blood monocytes automated count (number/volume) 0.6 10*3 0.0-1.0 Automated eosinophil count 0.2 10*3/uL 0.0-0.3 Automated blood basophil count (count/volume) 0.0 10*3/uL 0.0-0.1 PT panel in platelet poor plasma by coagulation assay - 08/15/16 06:00 Prothrombin time (PT) in platelet poor plasma by coagulation assay 23.0 s 12.2-14.7 INR in platelet poor plasma or blood by coagulation assay 2.1 0.8-1.4 Comprehensive metabolic panel - 08/15/16 06:00 Serum or plasma sodium measurement (moles/volume) 138 mmol/L 135-145 Serum or plasma potassium measurement (moles/volume) 3.6 mmol/L 3.6-5.0 Serum or plasma chloride measurement (moles/volume) 103 mmol/L 98-107 Carbon dioxide 23 mmol/L 21-32 Serum or plasma anion gap determination (moles/volume) 12 mmol/L 5-14 Serum or plasma urea nitrogen measurement (mass/volume) 26 mg/dL 7-18 Serum or plasma creatinine measurement (mass/volume) 1.63 mg/dL 0.60-1.30 Serum or plasma urea nitrogen/creatinine mass ratio 16 NRG Serum or plasma creatinine measurement with calculation of estimated glomerular filtration rate 42 NRG Serum or plasma glucose measurement (mass/volume) 93 mg/dL 70-105 Serum or plasma calcium measurement (mass/volume) 9.0 mg/dL 8.5-10.1 Serum or plasma total bilirubin measurement (mass/volume) 1.6 mg/dL 0.1-1.0 Serum or plasma alkaline phosphatase measurement (enzymatic activity/volume) 57 U/L 40-136 Serum or plasma aspartate aminotransferase measurement (enzymatic activity/ volume) 10 U/L 5-34 Serum or plasma alanine aminotransferase measurement (enzymatic activity/volume ) < U/L 0-55 Serum or plasma protein measurement (mass/volume) 5.4 g/dL 6.4-8.2 Serum or plasma albumin measurement (mass/volume) 3.4 g/dL 3.2-4.5 Capillary blood glucose measurement by glucometer (mass/volume) - 08/15/16 11: 21 Capillary blood glucose measurement by glucometer (mass/volume) 109 mg/dL 70-110 PT panel in platelet poor plasma by coagulation assay - 08/30/16 15:30 Prothrombin time (PT) in platelet poor plasma by coagulation assay 22.3 s 12.2-14.7 INR in platelet poor plasma or blood by coagulation assay 2.0 0.8-1.4 Complete blood count (CBC) with automated white blood cell (WBC) differential - 08/30/16 15:30 Blood leukocytes automated count (number/volume) 4.6 10*3/uL 4.3-11.0 Blood erythrocytes automated count (number/volume) 5.01 10*6/uL 4.35-5.85 Venous blood hemoglobin measurement (mass/volume) 12.9 g/dL 13.3-17.7 Blood hematocrit (volume fraction) 41 % 40-54 Automated erythrocyte mean corpuscular volume 82 [foz_us] 80-99 Automated erythrocyte mean corpuscular hemoglobin (mass per erythrocyte) 26 pg 25-34 Automated erythrocyte mean corpuscular hemoglobin concentration measurement ( mass/volume) 32 g/dL 32-36 Automated erythrocyte distribution width ratio 15.2 % 10.0-14.5 Automated blood platelet count (count/volume) 179 10*3/uL 130-400 Automated blood platelet mean volume measurement 10.4 [foz_us] 7.4-10.4 Automated blood neutrophils/100 leukocytes 66 % 42-75 Automated blood lymphocytes/100 leukocytes 23 % 12-44 Blood monocytes/100 leukocytes 9 % 0-12 Automated blood eosinophils/100 leukocytes 2 % 0-10 Automated blood basophils/100 leukocytes 0 % 0-10 Blood neutrophils automated count (number/volume) 3.0 10*3 1.8-7.8 Blood lymphocytes automated count (number/volume) 1.0 10*3 1.0-4.0 Blood monocytes automated count (number/volume) 0.4 10*3 0.0-1.0 Automated eosinophil count 0.1 10*3/uL 0.0-0.3 Automated blood basophil count (count/volume) 0.0 10*3/uL 0.0-0.1 Comprehensive metabolic panel - 08/30/16 15:30 Serum or plasma sodium measurement (moles/volume) 141 mmol/L 135-145 Serum or plasma potassium measurement (moles/volume) 4.2 mmol/L 3.6-5.0 Serum or plasma chloride measurement (moles/volume) 100 mmol/L 98-107 Carbon dioxide 31 mmol/L 21-32 Serum or plasma anion gap determination (moles/volume) 10 mmol/L 5-14 Serum or plasma urea nitrogen measurement (mass/volume) 27 mg/dL 7-18 Serum or plasma creatinine measurement (mass/volume) 1.92 mg/dL 0.60-1.30 Serum or plasma urea nitrogen/creatinine mass ratio 14 NRG Serum or plasma creatinine measurement with calculation of estimated glomerular filtration rate 35 NRG Serum or plasma glucose measurement (mass/volume) 116 mg/dL 70-105 Serum or plasma calcium measurement (mass/volume) 9.5 mg/dL 8.5-10.1 Serum or plasma total bilirubin measurement (mass/volume) 0.8 mg/dL 0.1-1.0 Serum or plasma alkaline phosphatase measurement (enzymatic activity/volume) 83 U/L 40-136 Serum or plasma aspartate aminotransferase measurement (enzymatic activity/ volume) 11 U/L 5-34 Serum or plasma alanine aminotransferase measurement (enzymatic activity/volume ) < U/L 0-55 Serum or plasma protein measurement (mass/volume) 6.8 g/dL 6.4-8.2 Serum or plasma albumin measurement (mass/volume) 4.3 g/dL 3.2-4.5 Serum or plasma phosphate measurement (mass/volume) - 08/30/16 15:30 Serum or plasma phosphate measurement (mass/volume) 3.2 mg/dL 2.3-4.7 Magnesium - 08/30/16 15:30 Magnesium 1.6 mg/dL 1.8-2.4 FK 506 - 08/30/16 15:30 Tacrolimus blood 11.9 % NRG GGT (gamma glutamyl transferase) - 08/30/16 15:30 GGT (gamma glutamyl transferase) 35 U/L 0-65 Urine microalbumin measurement by test strip (mass/volume) - 09/10/16 12:15 Urine creatinine measurement (mass/volume) 72 % NRG Microalbumin [mass/volume] in urine 27.0 % 0.0-20.0 Microalbumin/creatinine [ratio] in urine 37.5 mg/g{Cre} 0.0-30.0 PT panel in platelet poor plasma by coagulation assay - 11/01/16 10:06 Prothrombin time (PT) in platelet poor plasma by coagulation assay 23.3 s 12.2-14.7 INR in platelet poor plasma or blood by coagulation assay 2.1 0.8-1.4 Complete blood count (CBC) with automated white blood cell (WBC) differential - 01/03/17 07:05 Blood leukocytes automated count (number/volume) 6.0 10*3/uL 4.3-11.0 Blood erythrocytes automated count (number/volume) 5.16 10*6/uL 4.35-5.85 Venous blood hemoglobin measurement (mass/volume) 13.6 g/dL 13.3-17.7 Blood hematocrit (volume fraction) 43 % 40-54 Automated erythrocyte mean corpuscular volume 83 [foz_us] 80-99 Automated erythrocyte mean corpuscular hemoglobin (mass per erythrocyte) 26 pg 25-34 Automated erythrocyte mean corpuscular hemoglobin concentration measurement ( mass/volume) 32 g/dL 32-36 Automated erythrocyte distribution width ratio 15.8 % 10.0-14.5 Automated blood platelet count (count/volume) 143 10*3/uL 130-400 Automated blood platelet mean volume measurement 10.0 [foz_us] 7.4-10.4 Automated blood neutrophils/100 leukocytes 74 % 42-75 Automated blood lymphocytes/100 leukocytes 16 % 12-44 Blood monocytes/100 leukocytes 9 % 0-12 Automated blood eosinophils/100 leukocytes 2 % 0-10 Automated blood basophils/100 leukocytes 0 % 0-10 Blood neutrophils automated count (number/volume) 4.4 10*3 1.8-7.8 Blood lymphocytes automated count (number/volume) 0.9 10*3 1.0-4.0 Blood monocytes automated count (number/volume) 0.5 10*3 0.0-1.0 Automated eosinophil count 0.1 10*3/uL 0.0-0.3 Automated blood basophil count (count/volume) 0.0 10*3/uL 0.0-0.1 PT panel in platelet poor plasma by coagulation assay - 01/03/17 07:05 Prothrombin time (PT) in platelet poor plasma by coagulation assay 21.0 s 12.2-14.7 INR in platelet poor plasma or blood by coagulation assay 1.8 0.8-1.4 Comprehensive metabolic panel - 01/03/17 07:05 Serum or plasma sodium measurement (moles/volume) 138 mmol/L 135-145 Serum or plasma potassium measurement (moles/volume) 4.2 mmol/L 3.6-5.0 Serum or plasma chloride measurement (moles/volume) 96 mmol/L 98-107 Carbon dioxide 29 mmol/L 21-32 Serum or plasma anion gap determination (moles/volume) 13 mmol/L 5-14 Serum or plasma urea nitrogen measurement (mass/volume) 26 mg/dL 7-18 Serum or plasma creatinine measurement (mass/volume) 1.94 mg/dL 0.60-1.30 Serum or plasma urea nitrogen/creatinine mass ratio 13 NRG Serum or plasma creatinine measurement with calculation of estimated glomerular filtration rate 34 NRG Serum or plasma glucose measurement (mass/volume) 161 mg/dL 70-105 Serum or plasma calcium measurement (mass/volume) 9.1 mg/dL 8.5-10.1 Serum or plasma total bilirubin measurement (mass/volume) 1.7 mg/dL 0.1-1.0 Serum or plasma alkaline phosphatase measurement (enzymatic activity/volume) 87 U/L 40-136 Serum or plasma aspartate aminotransferase measurement (enzymatic activity/ volume) 8 U/L 5-34 Serum or plasma alanine aminotransferase measurement (enzymatic activity/volume ) < U/L 0-55 Serum or plasma protein measurement (mass/volume) 6.5 g/dL 6.4-8.2 Serum or plasma albumin measurement (mass/volume) 4.3 g/dL 3.2-4.5 Serum or plasma phosphate measurement (mass/volume) - 01/03/17 07:05 Serum or plasma phosphate measurement (mass/volume) 3.1 mg/dL 2.3-4.7 Magnesium - 01/03/17 07:05 Magnesium 1.7 mg/dL 1.8-2.4 FK 506 - 01/03/17 07:05 Tacrolimus blood 8.9 % NRG GGT (gamma glutamyl transferase) - 01/03/17 07:05 GGT (gamma glutamyl transferase) 30 U/L 0-65 PT panel in platelet poor plasma by coagulation assay - 01/12/17 07:14 Prothrombin time (PT) in platelet poor plasma by coagulation assay 19.2 s 12.2-14.7 INR in platelet poor plasma or blood by coagulation assay 1.6 0.8-1.4 PT panel in platelet poor plasma by coagulation assay - 01/19/17 06:20 Prothrombin time (PT) in platelet poor plasma by coagulation assay 21.8 s 12.2-14.7 INR in platelet poor plasma or blood by coagulation assay 1.9 0.8-1.4 PT panel in platelet poor plasma by coagulation assay - 01/26/17 07:15 Prothrombin time (PT) in platelet poor plasma by coagulation assay 31.8 s 12.2-14.7 INR in platelet poor plasma or blood by coagulation assay 3.1 0.8-1.4 PT panel in platelet poor plasma by coagulation assay - 02/03/17 11:43 Prothrombin time (PT) in platelet poor plasma by coagulation assay 31.8 s 12.2-14.7 INR in platelet poor plasma or blood by coagulation assay 3.1 0.8-1.4 PT panel in platelet poor plasma by coagulation assay - 04/11/17 15:10 Prothrombin time (PT) in platelet poor plasma by coagulation assay 40.8 s 12.2-14.7 INR in platelet poor plasma or blood by coagulation assay 4.2 0.8-1.4 PT panel in platelet poor plasma by coagulation assay - 04/29/17 11:23 Prothrombin time (PT) in platelet poor plasma by coagulation assay 21.5 s 12.2-14.7 INR in platelet poor plasma or blood by coagulation assay 1.9 0.8-1.4 Complete blood count (CBC) with automated white blood cell (WBC) differential - 05/11/17 07:54 Blood leukocytes automated count (number/volume) 5.1 10*3/uL 4.3-11.0 Blood erythrocytes automated count (number/volume) 5.18 10*6/uL 4.35-5.85 Venous blood hemoglobin measurement (mass/volume) 13.3 g/dL 13.3-17.7 Blood hematocrit (volume fraction) 42 % 40-54 Automated erythrocyte mean corpuscular volume 82 [foz_us] 80-99 Automated erythrocyte mean corpuscular hemoglobin (mass per erythrocyte) 26 pg 25-34 Automated erythrocyte mean corpuscular hemoglobin concentration measurement ( mass/volume) 31 g/dL 32-36 Automated erythrocyte distribution width ratio 15.7 % 10.0-14.5 Automated blood platelet count (count/volume) 137 10*3/uL 130-400 Automated blood platelet mean volume measurement 10.1 [foz_us] 7.4-10.4 Automated blood neutrophils/100 leukocytes 80 % 42-75 Automated blood lymphocytes/100 leukocytes 12 % 12-44 Blood monocytes/100 leukocytes 6 % 0-12 Automated blood eosinophils/100 leukocytes 1 % 0-10 Automated blood basophils/100 leukocytes 0 % 0-10 Blood neutrophils automated count (number/volume) 4.1 10*3 1.8-7.8 Blood lymphocytes automated count (number/volume) 0.6 10*3 1.0-4.0 Blood monocytes automated count (number/volume) 0.3 10*3 0.0-1.0 Automated eosinophil count 0.1 10*3/uL 0.0-0.3 Automated blood basophil count (count/volume) 0.0 10*3/uL 0.0-0.1 Comprehensive metabolic panel - 05/11/17 07:54 Serum or plasma sodium measurement (moles/volume) 140 mmol/L 135-145 Serum or plasma potassium measurement (moles/volume) 4.3 mmol/L 3.6-5.0 Serum or plasma chloride measurement (moles/volume) 101 mmol/L 98-107 Carbon dioxide 28 mmol/L 21-32 Serum or plasma anion gap determination (moles/volume) 11 mmol/L 5-14 Serum or plasma urea nitrogen measurement (mass/volume) 29 mg/dL 7-18 Serum or plasma creatinine measurement (mass/volume) 2.14 mg/dL 0.60-1.30 Serum or plasma urea nitrogen/creatinine mass ratio 14 NRG Serum or plasma creatinine measurement with calculation of estimated glomerular filtration rate 31 NRG Serum or plasma glucose measurement (mass/volume) 118 mg/dL 70-105 Serum or plasma calcium measurement (mass/volume) 9.5 mg/dL 8.5-10.1 Serum or plasma total bilirubin measurement (mass/volume) 1.3 mg/dL 0.1-1.0 Serum or plasma alkaline phosphatase measurement (enzymatic activity/volume) 90 U/L 40-136 Serum or plasma aspartate aminotransferase measurement (enzymatic activity/ volume) 10 U/L 5-34 Serum or plasma alanine aminotransferase measurement (enzymatic activity/volume ) 7 U/L 0-55 Serum or plasma protein measurement (mass/volume) 6.8 g/dL 6.4-8.2 Serum or plasma albumin measurement (mass/volume) 4.2 g/dL 3.2-4.5 Serum or plasma phosphate measurement (mass/volume) - 05/11/17 07:54 Serum or plasma phosphate measurement (mass/volume) 3.1 mg/dL 2.3-4.7 Magnesium - 05/11/17 07:54 Magnesium 1.5 mg/dL 1.8-2.4 PT panel in platelet poor plasma by coagulation assay - 05/11/17 07:54 Prothrombin time (PT) in platelet poor plasma by coagulation assay 26.6 s 12.2-14.7 INR in platelet poor plasma or blood by coagulation assay 2.5 0.8-1.4 GGT (gamma glutamyl transferase) - 05/11/17 07:54 GGT (gamma glutamyl transferase) 32 U/L 0-65 FK 506 - 05/11/17 07:54 Tacrolimus blood 6.9 % NRG GGT (gamma glutamyl transferase) - 05/11/17 07:54 GGT (gamma glutamyl transferase) 32 U/L 0-65 Complete blood count (CBC) with automated white blood cell (WBC) differential - 07/04/17 11:48 Blood leukocytes automated count (number/volume) 6.1 10*3/uL 4.3-11.0 Blood erythrocytes automated count (number/volume) 5.29 10*6/uL 4.35-5.85 Venous blood hemoglobin measurement (mass/volume) 13.3 g/dL 13.3-17.7 Blood hematocrit (volume fraction) 43 % 40-54 Automated erythrocyte mean corpuscular volume 82 [foz_us] 80-99 Automated erythrocyte mean corpuscular hemoglobin (mass per erythrocyte) 25 pg 25-34 Automated erythrocyte mean corpuscular hemoglobin concentration measurement ( mass/volume) 31 g/dL 32-36 Automated erythrocyte distribution width ratio 15.8 % 10.0-14.5 Automated blood platelet count (count/volume) 178 10*3/uL 130-400 Automated blood platelet mean volume measurement 9.8 [foz_us] 7.4-10.4 Automated blood neutrophils/100 leukocytes 74 % 42-75 Automated blood lymphocytes/100 leukocytes 16 % 12-44 Blood monocytes/100 leukocytes 8 % 0-12 Automated blood eosinophils/100 leukocytes 2 % 0-10 Automated blood basophils/100 leukocytes 1 % 0-10 Blood neutrophils automated count (number/volume) 4.5 10*3 1.8-7.8 Blood lymphocytes automated count (number/volume) 1.0 10*3 1.0-4.0 Blood monocytes automated count (number/volume) 0.5 10*3 0.0-1.0 Automated eosinophil count 0.1 10*3/uL 0.0-0.3 Automated blood basophil count (count/volume) 0.0 10*3/uL 0.0-0.1 Comprehensive metabolic panel - 07/04/17 11:48 Serum or plasma sodium measurement (moles/volume) 139 mmol/L 135-145 Serum or plasma potassium measurement (moles/volume) 4.1 mmol/L 3.6-5.0 Serum or plasma chloride measurement (moles/volume) 99 mmol/L 98-107 Carbon dioxide 30 mmol/L 21-32 Serum or plasma anion gap determination (moles/volume) 10 mmol/L 5-14 Serum or plasma urea nitrogen measurement (mass/volume) 20 mg/dL 7-18 Serum or plasma creatinine measurement (mass/volume) 1.81 mg/dL 0.60-1.30 Serum or plasma urea nitrogen/creatinine mass ratio 11 NRG Serum or plasma creatinine measurement with calculation of estimated glomerular filtration rate 37 NRG Serum or plasma glucose measurement (mass/volume) 137 mg/dL 70-105 Serum or plasma calcium measurement (mass/volume) 9.4 mg/dL 8.5-10.1 Serum or plasma total bilirubin measurement (mass/volume) 1.4 mg/dL 0.1-1.0 Serum or plasma alkaline phosphatase measurement (enzymatic activity/volume) 86 U/L 40-136 Serum or plasma aspartate aminotransferase measurement (enzymatic activity/ volume) 10 U/L 5-34 Serum or plasma alanine aminotransferase measurement (enzymatic activity/volume ) < U/L 0-55 Serum or plasma protein measurement (mass/volume) 6.3 g/dL 6.4-8.2 Serum or plasma albumin measurement (mass/volume) 4.1 g/dL 3.2-4.5 FK 506 - 07/04/17 11:48 Tacrolimus blood 8.8 % NRG GGT (gamma glutamyl transferase) - 07/04/17 11:48 GGT (gamma glutamyl transferase) 26 U/L 0-65 Complete blood count (CBC) with automated white blood cell (WBC) differential - 08/23/17 15:45 Blood leukocytes automated count (number/volume) 5.4 10*3/uL 4.3-11.0 Blood erythrocytes automated count (number/volume) 5.28 10*6/uL 4.35-5.85 Venous blood hemoglobin measurement (mass/volume) 12.9 g/dL 13.3-17.7 Blood hematocrit (volume fraction) 43 % 40-54 Automated erythrocyte mean corpuscular volume 82 [foz_us] 80-99 Automated erythrocyte mean corpuscular hemoglobin (mass per erythrocyte) 24 pg 25-34 Automated erythrocyte mean corpuscular hemoglobin concentration measurement ( mass/volume) 30 g/dL 32-36 Automated erythrocyte distribution width ratio 16.3 % 10.0-14.5 Automated blood platelet count (count/volume) 193 10*3/uL 130-400 Automated blood platelet mean volume measurement 9.7 [foz_us] 7.4-10.4 Automated blood neutrophils/100 leukocytes 60 % 42-75 Automated blood lymphocytes/100 leukocytes 26 % 12-44 Blood monocytes/100 leukocytes 10 % 0-12 Automated blood eosinophils/100 leukocytes 3 % 0-10 Automated blood basophils/100 leukocytes 0 % 0-10 Blood neutrophils automated count (number/volume) 3.3 10*3 1.8-7.8 Blood lymphocytes automated count (number/volume) 1.4 10*3 1.0-4.0 Blood monocytes automated count (number/volume) 0.6 10*3 0.0-1.0 Automated eosinophil count 0.1 10*3/uL 0.0-0.3 Automated blood basophil count (count/volume) 0.0 10*3/uL 0.0-0.1 Comprehensive metabolic panel - 08/23/17 15:45 Serum or plasma sodium measurement (moles/volume) 141 mmol/L 135-145 Serum or plasma potassium measurement (moles/volume) 3.8 mmol/L 3.6-5.0 Serum or plasma chloride measurement (moles/volume) 100 mmol/L 98-107 Carbon dioxide 30 mmol/L 21-32 Serum or plasma anion gap determination (moles/volume) 11 mmol/L 5-14 Serum or plasma urea nitrogen measurement (mass/volume) 26 mg/dL 7-18 Serum or plasma creatinine measurement (mass/volume) 2.00 mg/dL 0.60-1.30 Serum or plasma urea nitrogen/creatinine mass ratio 13 NRG Serum or plasma creatinine measurement with calculation of estimated glomerular filtration rate 33 NRG Serum or plasma glucose measurement (mass/volume) 81 mg/dL 70-105 Serum or plasma calcium measurement (mass/volume) 9.2 mg/dL 8.5-10.1 Serum or plasma total bilirubin measurement (mass/volume) 1.1 mg/dL 0.1-1.0 Serum or plasma alkaline phosphatase measurement (enzymatic activity/volume) 85 U/L 40-136 Serum or plasma aspartate aminotransferase measurement (enzymatic activity/ volume) 7 U/L 5-34 Serum or plasma alanine aminotransferase measurement (enzymatic activity/volume ) < U/L 0-55 Serum or plasma protein measurement (mass/volume) 6.7 g/dL 6.4-8.2 Serum or plasma albumin measurement (mass/volume) 4.1 g/dL 3.2-4.5 Serum or plasma phosphate measurement (mass/volume) - 08/23/17 15:45 Serum or plasma phosphate measurement (mass/volume) 2.8 mg/dL 2.3-4.7 Magnesium - 08/23/17 15:45 Magnesium 1.7 mg/dL 1.8-2.4 PT panel in platelet poor plasma by coagulation assay - 08/23/17 15:45 Prothrombin time (PT) in platelet poor plasma by coagulation assay 24.7 s 12.2-14.7 INR in platelet poor plasma or blood by coagulation assay 2.2 0.8-1.4 FK 506 - 08/23/17 15:45 Tacrolimus blood 7.3 % NRG GGT (gamma glutamyl transferase) - 08/23/17 15:45 GGT (gamma glutamyl transferase) 27 U/L 0-65 FK 506 - 08/31/17 09:30 Tacrolimus blood 4.8 % NRG Complete blood count (CBC) with automated white blood cell (WBC) differential - 10/29/17 14:45 Blood leukocytes automated count (number/volume) 5.0 10*3/uL 4.3-11.0 Blood erythrocytes automated count (number/volume) 4.96 10*6/uL 4.35-5.85 Venous blood hemoglobin measurement (mass/volume) 12.2 g/dL 13.3-17.7 Blood hematocrit (volume fraction) 40 % 40-54 Automated erythrocyte mean corpuscular volume 81 [foz_us] 80-99 Automated erythrocyte mean corpuscular hemoglobin (mass per erythrocyte) 25 pg 25-34 Automated erythrocyte mean corpuscular hemoglobin concentration measurement ( mass/volume) 31 g/dL 32-36 Automated erythrocyte distribution width ratio 17.2 % 10.0-14.5 Automated blood platelet count (count/volume) 163 10*3/uL 130-400 Automated blood platelet mean volume measurement 9.9 [foz_us] 7.4-10.4 Automated blood neutrophils/100 leukocytes 71 % 42-75 Automated blood lymphocytes/100 leukocytes 18 % 12-44 Blood monocytes/100 leukocytes 8 % 0-12 Automated blood eosinophils/100 leukocytes 2 % 0-10 Automated blood basophils/100 leukocytes 0 % 0-10 Blood neutrophils automated count (number/volume) 3.6 10*3 1.8-7.8 Blood lymphocytes automated count (number/volume) 0.9 10*3 1.0-4.0 Blood monocytes automated count (number/volume) 0.4 10*3 0.0-1.0 Automated eosinophil count 0.1 10*3/uL 0.0-0.3 Automated blood basophil count (count/volume) 0.0 10*3/uL 0.0-0.1 Comprehensive metabolic panel - 10/29/17 14:45 Serum or plasma sodium measurement (moles/volume) 138 mmol/L 135-145 Serum or plasma potassium measurement (moles/volume) 5.1 mmol/L 3.6-5.0 Serum or plasma chloride measurement (moles/volume) 100 mmol/L 98-107 Carbon dioxide 26 mmol/L 21-32 Serum or plasma anion gap determination (moles/volume) 12 mmol/L 5-14 Serum or plasma urea nitrogen measurement (mass/volume) 28 mg/dL 7-18 Serum or plasma creatinine measurement (mass/volume) 2.13 mg/dL 0.60-1.30 Serum or plasma urea nitrogen/creatinine mass ratio 13 NRG Serum or plasma creatinine measurement with calculation of estimated glomerular filtration rate 31 NRG Serum or plasma glucose measurement (mass/volume) 219 mg/dL 70-105 Serum or plasma calcium measurement (mass/volume) 9.0 mg/dL 8.5-10.1 Serum or plasma total bilirubin measurement (mass/volume) 1.4 mg/dL 0.1-1.0 Serum or plasma alkaline phosphatase measurement (enzymatic activity/volume) 88 U/L 40-136 Serum or plasma aspartate aminotransferase measurement (enzymatic activity/ volume) 8 U/L 5-34 Serum or plasma alanine aminotransferase measurement (enzymatic activity/volume ) < U/L 0-55 Serum or plasma protein measurement (mass/volume) 6.6 g/dL 6.4-8.2 Serum or plasma albumin measurement (mass/volume) 4.0 g/dL 3.2-4.5 Serum or plasma phosphate measurement (mass/volume) - 10/29/17 14:45 Serum or plasma phosphate measurement (mass/volume) 3.8 mg/dL 2.3-4.7 Magnesium - 10/29/17 14:45 Magnesium 1.7 mg/dL 1.8-2.4 PT panel in platelet poor plasma by coagulation assay - 10/29/17 14:45 Prothrombin time (PT) in platelet poor plasma by coagulation assay 25.2 s 12.2-14.7 INR in platelet poor plasma or blood by coagulation assay 2.3 0.8-1.4 FK 506 - 10/29/17 14:45 Tacrolimus blood 6.0 % NRG GGT (gamma glutamyl transferase) - 10/29/17 14:45 GGT (gamma glutamyl transferase) 34 U/L 0-65 Encounters ACCT No. Visit Date/Time Discharge Status Pt. Type Provider Facility Loc./Unit Complaint [id number] 05/30/2013 11:30:00 Document Registration [id number] 07/31/2015 08:25:01 ACT Document Registration [id number] 11/19/2010 14:03:00 11/19/2010 23:59:59 CLS Outpatient CAESAR LANGE, LEANDER [id number] 12/06/2017 11:51:00 12/06/2017 23:59:59 CLS Outpatient DURAN PETER DO [facility] RAD R07.89 [id number] 11/22/2017 00:14:00 11/22/2017 23:59:59 CLS Preadmit RAZA FOOTE MD [facility] LAB Z94.4 Z79.899 [id number] 11/22/2017 00:14:00 11/22/2017 23:59:59 CLS Preadmit RUPERT DUPREE MD [facility] LAB ANTICOAG THERAPY [id number] 10/29/2017 14:35:00 11/21/2017 00:01:00 DIS Outpatient RAZA FOOTE MD [facility] LAB Z94.4 Z79.899 [id number] 10/29/2017 14:34:00 11/21/2017 00:01:00 DIS Outpatient RUPERT DUPREE MD [facility] LAB ANTICOAG THERAPY [id number] 10/12/2017 19:50:00 10/13/2017 05:48:00 DIS Outpatient DURAN PETER DO [facility] SLEEP EVERARDO [id number] 08/31/2017 09:42:00 08/31/2017 23:59:59 CLS Outpatient WILLIAM BONILLA MD [facility] SDC ASCITES [id number] 08/29/2017 15:08:00 08/29/2017 23:59:59 CLS Outpatient DURAN PETER DO [facility] RAD R18.8 [id number] 08/26/2017 14:00:00 08/26/2017 14:47:00 DIS Outpatient DURAN PETER DO [facility] SLEEP EVERARDO, ARRHYTHMIA, EDS, HPN [id number] 05/11/2017 07:29:00 08/09/2017 00:01:00 DIS Outpatient RAZA FOOTE MD [facility] LAB Z94.4 Z79.899 [id number] 07/11/2017 12:00:00 07/11/2017 23:59:59 CLS Preadmit DURAN PETER DO [facility] CARD ASCITES [id number] 05/11/2017 07:46:00 07/10/2017 00:01:00 DIS Outpatient RUPERT DUPREE MD [facility] LAB ANTICOAG THERAPY [id number] 07/04/2017 11:36:00 07/04/2017 23:59:59 CLS Outpatient RAZA FOOTE MD [facility] LAB Z94.4 [id number] 07/01/2017 08:52:00 07/01/2017 23:59:59 CLS Outpatient DURAN PETER DO [facility] RAD ASCITES [id number] 04/04/2017 00:10:00 04/04/2017 23:59:59 CLS Preadmit RAZA FOOTE MD [facility] LAB Z94.4 [id number] 02/03/2017 11:36:00 04/03/2017 00:01:00 DIS Outpatient RAZA FOOTE MD [facility] LAB Z94.4 [id number] 01/19/2017 06:10:00 01/30/2017 00:01:00 DIS Outpatient RUPERT DUPREE MD [facility] LAB ANTICOAG THERAPY [id number] 11/01/2016 10:04:00 11/28/2016 00:01:00 DIS Outpatient RAZA FOOTE MD [facility] LAB Z94.4 [id number] 08/30/2016 15:19:00 10/19/2016 00:01:00 DIS Outpatient RUPERT DUPREE MD [facility] LAB ANTICOAG THERAPY [id number] 09/10/2016 13:34:00 09/10/2016 23:59:59 CLS Outpatient NANCY CARMICHAEL PA-C [facility] LAB 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,CURRENT INSULIN USE [id number] 08/13/2016 12:42:00 08/15/2016 12:14:00 DIS Inpatient DURAN PETER DO [facility] 4TH SEPSIS, A-FIB RVR, ACUTE ON CHRONIC RENAL INSUFF [id number] 08/10/2016 00:07:00 08/10/2016 23:59:59 CLS Preadmit RAZA FOOTE MD [facility] LAB POST 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, ANTICOAG THERAPY [id number] 08/10/2016 15:16:00 08/10/2016 17:16:00 DIS Outpatient KIMBERLY CANTOR MD [facility] ER R HAND 3 FINGERS LAC [id number] 06/15/2016 14:23:00 08/09/2016 00:01:00 DIS Outpatient RAZA FOOTE MD [facility] LAB POST 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, ANTICOAG THERAPY [id number] 07/12/2016 10:00:00 07/18/2016 00:01:00 DIS Outpatient RUPERT DUPREE MD [facility] LAB ANTICOAG THERAPY [id number] 07/01/2016 06:00:00 07/01/2016 15:30:00 DIS Outpatient IRENE LANGE, WILLIAM Watt [facility] PREOP DYSPHAGIA; GERD [id number] 06/17/2016 10:23:00 06/17/2016 23:59:59 CLS Outpatient DURAN PETER DO [facility] RAD Z13.820,M85.9,E55.9 [id number] 05/27/2016 11:27:00 05/27/2016 23:59:59 CLS Outpatient DURAN PETER DO [facility] RAD I70.213 [id number] 03/17/2016 00:08:00 03/17/2016 23:59:59 CLS Preadmit RAZA FOOTE MD [facility] LAB [facility] MED USE,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 [id number] 03/09/2016 13:23:00 03/16/2016 00:01:00 DIS Outpatient RUPERT DUPREE MD [facility] LAB ANTICOAG THERAPY [id number] 12/17/2015 07:31:00 03/16/2016 00:01:00 DIS Outpatient DARY LANGE, RAZA Watt [facility] LAB [facility] MED USE,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 [id number] 03/09/2016 13:14:00 03/09/2016 23:59:59 CLS Outpatient OTHER, UNLISTED [facility] LAB DM II, GOUT, HYPERCALCEMIA [id number] 01/12/2016 11:14:00 01/12/2016 23:59:59 CLS Outpatient DURAN PETER DO [facility] LAB E11.9 [id number] 12/31/2015 13:16:00 12/31/2015 23:59:59 CLS Outpatient JUDY LANGE, BILL Aponte [facility] LAB CKD UNSPECIFIED STAGE [id number] 11/21/2015 15:12:00 11/27/2015 00:01:00 DIS Outpatient RUPERT DUPREE MD [facility] LAB ANTICOAG THERAPY [id number] 07/22/2015 12:58:00 08/13/2015 00:01:00 DIS Outpatient RUPERT DUPREE MD [facility] 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,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 [id number] 07/31/2015 08:24:00 08/03/2015 00:01:00 DIS Outpatient RUPERT DUPREE MD [facility] LAB ANTICOAG THERAPY [id number] 07/02/2015 10:05:00 07/02/2015 23:59:59 CLS Outpatient DURAN PETER DO [facility] RAD 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 PT [id number] 06/30/2015 12:56:00 07/01/2015 12:55:00 DIS Inpatient DURAN PETER DO [facility] 4TH FEVER OF UNKNOWN ORIGIN [id number] 06/30/2015 00:16:00 06/30/2015 03:23:00 DIS Outpatient CAESAR LANGE, LEANDER Santiago [facility] ER FEVER [id number] 06/23/2015 00:13:00 06/23/2015 23:59:59 CLS Preadmit DURAN PETER DO [facility] SDC CELLULITIS OF LT HAND [id number] 03/26/2015 12:09:00 06/22/2015 00:01:00 DIS Outpatient DURAN PETER DO [facility] SDC CELLULITIS OF LT HAND [id number] 04/28/2015 12:32:00 04/28/2015 23:59:59 CLS Outpatient DURAN PETER DO [facility] RAD LLL PNEUMONIA [id number] 04/17/2015 12:39:00 04/23/2015 00:01:00 DIS Outpatient RUPERT DUPREE MD [facility] LAB ANTICOAG THERAPY [id number] 02/19/2015 09:19:00 04/23/2015 00:01:00 DIS Outpatient 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,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 [id number] 04/02/2015 14:16:00 04/02/2015 17:25:00 DIS Outpatient WILLIAM BONILLA MD [facility] SDC NAUSEA/VOMITING [id number] 03/27/2015 07:17:00 03/27/2015 23:59:59 CLS Outpatient WILLIAM BONILLA MD [facility] PREOP NAUSEA/VOMITING [id number] 03/25/2015 07:47:00 03/25/2015 23:59:59 CLS Outpatient YAJAIRA PETER [facility] RAD ABD PAIN, NAUSEA [id number] 03/23/2015 11:38:00 03/23/2015 13:48:00 DIS Emergency DARIELA PARKER [facility] ER L HAND SWELLING [id number] 12/19/2014 13:10:00 12/19/2014 23:59:59 CLS Outpatient RUPERT DUPREE MD [facility] LAB ANTICOAG THERAPY [id number] 12/12/2014 11:11:00 12/12/2014 23:59:59 CLS Outpatient DURAN PETER DO [facility] RAD OSTEOPOROSIS [id number] 10/23/2014 07:38:00 11/21/2014 00:01:00 DIS Outpatient RAZA FOOTE MD [facility] LAB [facility] MED USE,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 [id number] 10/31/2014 08:13:00 10/31/2014 23:59:59 CLS Outpatient OTHER, UNLISTED [facility] LAB TYPE II OR UNSPECIFED DM W/O MENTION OF COMPLICATI [id number] 10/31/2014 08:09:00 10/31/2014 23:59:59 CLS Outpatient RAZA FOOTE MD [facility] LAB [id number] 09/16/2014 11:24:00 10/14/2014 00:01:00 DIS Outpatient RUPERT DUPREE MD [facility] LAB ANTICOAG THERAPY [id number] 09/29/2014 00:50:00 09/29/2014 02:05:00 DIS Emergency HECTOR GOSS DO [facility] ER FEVER [id number] 09/16/2014 11:11:00 09/16/2014 23:59:59 CLS Outpatient DURAN PETER DO [facility] LAB MYCORIS OF NAILS [id number] 07/16/2014 08:19:00 08/11/2014 00:01:00 DIS Outpatient 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,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 [id number] 06/25/2014 12:39:00 07/03/2014 00:01:00 DIS Outpatient RUPERT DUPREE MD [facility] LAB ANTICOAG THERAPY [id number] 06/26/2014 12:50:00 06/28/2014 12:40:00 DIS Inpatient DURAN PETER DO [facility] 4TH CLINICAL PNEUMONIA WITH HYPOXIA [id number] 03/28/2014 07:07:00 04/03/2014 00:01:00 DIS Outpatient RAZA FOOTE MD [facility] LAB [facility] MED USE,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 [id number] 02/13/2014 11:40:00 04/03/2014 00:01:00 DIS Outpatient RUPERT DUPREE MD [facility] LAB ANTICOAG THERAPY [id number] 12/03/2013 11:01:00 12/25/2013 00:01:00 DIS Outpatient 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,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 [id number] 12/03/2013 11:06:00 12/03/2013 23:59:59 CLS Outpatient OTHER, UNLISTED [facility] TYPE II DIABETES, FATIGUE , COLD INTOLERANCE [id number] 09/10/2013 07:44:00 11/04/2013 00:01:00 DIS Outpatient RUPERT DUPREE MD [facility] LAB ANTICOAG THERAPY [id number] 06/28/2013 09:05:00 09/16/2013 00:01:00 DIS Outpatient 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,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 [id number] 08/06/2013 09:24:00 08/06/2013 23:59:59 CLS Outpatient RAZA FOOTE MD [facility] LAB 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 [id number] 06/28/2013 08:56:00 07/29/2013 00:01:00 DIS Outpatient RUPERT DUPREE MD [facility] LAB ANTICOAG THERAPY [id number] 05/28/2013 07:49:00 06/17/2013 00:01:00 DIS Outpatient RAZA FOOTE MD [facility] LAB [facility] MED USE,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 [id number] 05/25/2013 11:31:00 05/25/2013 23:59:59 CLS Outpatient RAZA FOOTE MD [facility] RAD OSTEOPOROSIS [id number] 04/18/2013 14:17:00 04/22/2013 00:01:00 DIS Outpatient RUPERT DUPREE MD [facility] LAB ANTICOAG THERAPY [id number] 02/14/2018 10:33:00 ACT Outpatient DURAN PETER DO [facility] RAD RIGHT CHEST PAIN [id number] 12/18/2015 08:20:00 Document Registration [id number] 12/13/2014 10:10:00 Document Registration [id number] 12/13/2014 10:09:00 Document Registration [id number] 05/07/2013 00:00:00 Document Registration [id number] 02/26/2013 12:00:00 Document Registration [id number] 02/13/2013 09:26:00 Document Registration [id number] 02/08/2013 08:29:00 Document Registration [id number] 02/07/2013 11:39:00 Document Registration [id number] 01/30/2013 10:01:00 Document Registration [id number] 12/12/2012 08:36:00 Document Registration [id number] 12/12/2012 08:21:00 Document Registration [id number] 11/06/2012 08:02:00 Document Registration [id number] 09/12/2012 10:29:00 Document Registration [id number] 08/28/2012 09:00:00 Document Registration [id number] 08/22/2012 09:27:00 Document Registration [id number] 08/17/2012 15:23:00 Document Registration [id number] 08/11/2012 10:05:00 Document Registration [id number] 07/27/2012 17:56:00 Document Registration [id number] 07/18/2012 09:51:00 Document Registration [id number] 06/01/2012 12:03:00 Document Registration [id number] 04/17/2012 08:47:00 Document Registration [id number] 03/06/2012 07:39:00 Document Registration [id number] 03/02/2012 07:49:00 Document Registration [id number] 12/27/2011 08:25:00 Document Registration [id number] 11/22/2011 07:31:00 Document Registration [id number] 10/04/2011 08:59:00 Document Registration [id number] 09/20/2011 08:20:00 Document Registration [id number] 09/06/2011 08:50:00 Document Registration [id number] 06/28/2011 08:36:00 Document Registration [id number] 05/24/2011 10:02:00 Document Registration [id number] 03/29/2011 08:45:00 Document Registration [id number] 01/22/2011 09:41:00 Document Registration [id number] 11/25/2010 10:21:00 Document Registration [id number] 11/05/2010 09:18:00 Document Registration [id number] 10/19/2010 09:15:00 Document Registration [id number] 08/13/2010 12:48:00 Document Registration [id number] 06/16/2010 07:48:00 Document Registration [id number] 05/19/2010 17:34:00 Document Registration [id number] 04/29/2010 14:55:00 Document Registration [id number] 04/08/2010 12:49:00 Document Registration [id number] 02/23/2010 16:55:00 Document Registration [id number] 02/18/2010 14:32:00 Document Registration
[2018-02-17 07:53] LABS: BASOPHILS % (AUTO) 0 % (0-10); EOSINOPHILS # (AUTO) 0.1 10^3/uL (0.0-0.3); EOSINOPHILS % (AUTO) 1 % (0-10); HEMATOCRIT 44 % (40-54); HEMOGLOBIN 14.2 G/DL (13.3-17.7); LYMPHOCYTES # (AUTO) 1.7 X 10^3 (1.0-4.0); LYMPHOCYTES % (AUTO) 12 % (12-44); MEAN CORPUSCULAR HEMOGLOBIN 25 PG (25-34); MEAN CORPUSCULAR HGB CONC 32 G/DL (32-36); MEAN CORPUSCULAR VOLUME 78 FL (80-99); MEAN PLATELET VOLUME 11.6 FL (7.4-10.4); MONOCYTES % (AUTO) 7 % (0-12); NEUTROPHILS # (AUTO) 11.2 X 10^3 (1.8-7.8); NEUTROPHILS % (AUTO) 81 % (42-75); PLATELET COUNT 221 10^3/uL (130-400); RED BLOOD COUNT 5.61 10^6/uL (4.35-5.85); RED CELL DISTRIBUTION WIDTH 17.3 % (10.0-14.5)
[2018-02-17] MEDS ORDERED: VERAPAMIL 10 MG/4 ML (CALAN) VIAL IV ONE (08:00)
--- NOTE | 2018-02-17 08:00 | ED General ---
General Stated Complaint: WEAK,SHAKEY,COUGHING UP BLOOD Source of Information: Patient Exam Limitations: Physical Impairments History of Present Illness Date Seen by Provider: Feb 17, 2018 Time Seen by Provider: 07:30 Initial Comments She her by EMS with report of being weak, shaky, coughing with blood in his sputum or coughing up blood and vomiting. Noted to have a fever of 102.2 by EMS. Fingerstick blood sugar by EMS 212. He did receive 4 mg Zofran IV. Patient noted to have heart rate 196-210 and has history of A. fib. His status changed in route and he had decreasing mentation and they ran him hot here. Patient arrives somewhat confused and shaking with heart rate 190s and O2 sat low 90s on high flow mask. He does follow commands but is having difficulty answering questions. reports that he had a good day yesterday and went to the [employer] last night. Overnight he began coughing and she noted that this morning he had several coughing fits and she turned on the light noted that he had coughed up some blood. EMS was summoned due to the concerns. After EMS arrival, he did vomit but that was not reported to be bloody vomit. Patient is on warfarin. Timing/Duration: 4-6 Hours Severity: Severe Associated Systoms: No Chest Pain, Cough, Fever/Chills, Nausea/Vomiting, Shortness of Air, Weakness Allergies and Home Medications Allergies Coded Allergies: meperidine (Verified Allergy, Unknown, 06/26/14) morphine (Verified Allergy, Unknown, 06/26/14) Home Medications Allopurinol 100 Mg Tablet, 100 MG PO HS, (Reported) Diltiazem HCl 240 Mg Cap.er.24h, 240 MG PO DAILY Prescribed by: BLANCA TABARES on 08/15/16 1054 Furosemide 20 Mg Tablet, 40 MG PO BID, (Reported) Hydrocodone/Acetaminophen 1 Each Tablet, 2 TAB PO TID, (Reported) Insulin Aspart 100 Unit/1 Ml Susp, 9 UNIT SQ AC, (Reported) Insulin Aspart 300 Units/3 Ml Solution, 9 UNITS SQ AC, (Reported) Insulin Detemir 100 Unit/1 Ml Insuln.pen, 36 UNIT SQ BEFORE BREAKFAST, (Reported ) Insulin Detemir 100 Unit/1 Ml Insuln.pen, 18 UNIT SQ HS, (Reported) Mycophenolate Mofetil 250 Mg Capsule, 500 MG PO BID, (Reported) Omeprazole Magnesium 20 Mg Tablet.dr, 40 MG PO DAILY, (Reported) Oxycodone HCl 5 Mg Tablet, 10 MG PO Q8H PRN for PAIN, (Reported) Pregabalin 100 Mg Capsule, 100 MG PO BID, (Reported) Sennosides/Docusate Sodium 1 Each Tablet, 1 TAB PO HS, (Reported) Tacrolimus 1 Mg Capsule, 1 MG PO DAILY, (Reported) Tacrolimus 1 Mg Capsule, 2 MG PO HS, (Reported) Temazepam 15 Mg Capsule, 15 MG PO HS PRN for SLEEP, (Reported) Ursodiol 300 Mg Capsule, 300 MG PO BID, (Reported) Warfarin Sodium 5 Mg Tablet, 5 MG PO ,,,, (Reported) Warfarin Sodium 7.5 Mg Tablet, 7.5 MG PO ,,, (Reported) Patient Home Medication List Home Medication List Reviewed: Yes Review of Systems Constitutional: see HPI, chills, fever, weakness EENTM: nose congestion Respiratory: cough, short of breath Cardiovascular: No chest pain, No edema Gastrointestinal: nausea, vomiting Skin: No change in color, No lesions Unable to complete review of systems due to altered mental status and patients clinical condition. Past Pftaefi-Eiirfa-Hmfyyd Hx Past Med/Social Hx: Reviewed Nursing Past Med/Soc Hx Patient Social History Alcohol Use: Denies Use Recreational Drug Use: No Smoking Status: Never a Smoker Recent Hopitalizations: Yes Immunizations Up To Date Tetanus Booster (TDap): Less than 5yrs PED Vaccines UTD: Yes Date of Pneumonia Vaccine: Aug 14, 2014 Date of Influenza Vaccine: Jul 23, 2016 Seasonal Allergies Seasonal Allergies: No Past Medical History Surgeries: Yes Cardiac, CABG, Coronary Stent, Eye Surgery, Liver Transplant, Orthopedic, Rectal Respiratory: Yes Pneumonia Cardiac: Yes Atrial Fibrillation, Chronic Edema/Swelling, Coronary Artery Disease, High Cholesterol, Hypertension Neurological: Yes Neuropathy Reproductive Disorders: No (VASECTOMY) Gastrointestinal: Yes Liver Disease/Jaundice Musculoskeletal: Yes Chronic Back Pain Endocrine: Yes Diabetes, Insulin dep HEENT: Yes Cataract Loss of Vision: Denies Hearing Impairment: Denies Adverse Reaction/Blood Tranf: No Family Medical History Reviewed Nursing Family Hx Cancer of mouth 19 MOTHER Completed stroke 19 MOTHER G8 BROTHER Myocardial infarction 19 FATHER No Pertinent Family Hx, Heart Disease, Cancer Physical Exam-Suspected Sepsis Physical Exam Vital Signs Vital Signs - First Documented 02/17/18 02/17/18 07:30 08:47 Temp 103.6 Pulse 200 Resp 36 B/P (MAP) 135/99 (111) Pulse Ox 92 O2 Delivery OxyMask O2 Flow Rate 15.00 FiO2 100 Capillary Refill : General Appearance: Moderate Distress, Obese HEENT: PERRL/EOMI, Pharynx Normal Neck: Non Tender, Supple Respiratory: Crackles, Decreased Breath Sounds, Respiratory Distress Cardiovascular: No Murmur, Tachycardia Gastrointestinal: Non Tender, Soft Back: Normal Inspection, No CVA Tenderness, No Vertebral Tenderness Extremity: Normal Range of Motion, Non Tender Neurologic/Psychiatric: Alert, Motor Weakness Skin: normal color, warm/dry, No rash, No ulcerations Focused Exam Lactate Level Laboratory Tests 02/17/18 07:42: Lactic Acid Level 2.04*H Lactic Acid Level Procedures/Interventions Lumen: triple Central Line Procedure: betadine prep, sterile drapes applied, sterile dressing applied Position: internal jugular (R) Complications: none Post Position: sutured, good blood return, position confirmed w/ CXR Please see ultrasound guidance 1 stick without complications. Sutured in place and covered with dressing. Tolerated procedure well. Confirmed by x-ray. Date of ETT Placement: Feb 17, 2018 Time of ETT Placement: 08:42 Intubation Method: orotracheal Tube Size: 8 Medications: Etomidate, Fentanyl, Propofol, Succinylcholine, Versed Positive End Tide CO2: Yes Breath Sounds after Intubation: bilateral-equal Intubation Complications: no complications Post Intubation Xray: Yes endotracheal tube in good position. Progress/Results/Core Measures Suspected Sepsis SIRS Temperature: Pulse: Respiratory Rate: Laboratory Tests 02/17/18 07:42: White Blood Count 14.0H Blood Pressure / Mean: Laboratory Tests 02/17/18 07:42: Lactic Acid Level 2.04*H Laboratory Tests 02/17/18 07:42: INR Comment 2.2H, Platelet Count 221 02/17/18 08:02: Creatinine 2.06H, Total Bilirubin 1.1H Results/Orders Lab Results Laboratory Tests Test 02/17/18 07:42 02/17/18 07:57 02/17/18 08:00 02/17/18 08:01 Range/Units White Blood Count 14.0 H 4.3-11.0 10^3/uL Red Blood Count 5.61 4.35-5.85 10^6/uL Hemoglobin 14.2 13.3-17.7 G/DL Hematocrit 44 40-54 % Mean Corpuscular Volume 78 L 80-99 FL Mean Corpuscular Hemoglobin 25 25-34 PG Mean Corpuscular Hemoglobin Concent 32 32-36 G/DL Red Cell Distribution Width 17.3 H 10.0-14.5 % Platelet Count 221 130-400 10^3/uL Mean Platelet Volume 11.6 H 7.4-10.4 FL Neutrophils (%) (Auto) 81 H 42-75 % Lymphocytes (%) (Auto) 12 12-44 % Monocytes (%) (Auto) 7 0-12 % Eosinophils (%) (Auto) 1 0-10 % Basophils (%) (Auto) 0 0-10 % Neutrophils # (Auto) 11.2 H 1.8-7.8 X 10^3 Lymphocytes # (Auto) 1.7 1.0-4.0 X 10^3 Monocytes # (Auto) 1.0 0.0-1.0 X 10^3 Eosinophils # (Auto) 0.1 0.0-0.3 10^3/uL Basophils # (Auto) 0.0 0.0-0.1 10^3/uL Prothrombin Time 24.2 H 12.2-14.7 SEC INR Comment 2.2 H 0.8-1.4 Activated Partial Thromboplast Time 33 24-35 SEC Lactic Acid Level 2.04 *H 0.50-2.00 MMOL/L Blood Gas Puncture Site L RADIAL Blood Gas Patient Temperature 103.5 Arterial Blood pH 7.33 *L 7.37-7.43 Arterial Blood Partial Pressure CO2 51 H 35-45 MMHG Arterial Blood Partial Pressure O2 117 H 79-93 MMHG Arterial Blood HCO3 25 23-27 MMOL/L Arterial Blood Total CO2 26.3 21.0-31.0 MMOL/L Arterial Blood Oxygen Saturation 98 94-100 % Arterial Blood Base Excess 0.2 -2.5-2.5 MMOL/L Omi Test YES-POS Blood Gas Ventilator Setting NO Blood Gas Inspired Oxygen 15 Urine Color YELLOW Urine Clarity CLEAR Urine pH 6.5 5-9 Urine Specific [place] 1.015 L 1.016-1.022 Urine Protein 3+ H NEGATIVE Urine Glucose (UA) NEGATIVE NEGATIVE Urine Ketones NEGATIVE NEGATIVE Urine Nitrite NEGATIVE NEGATIVE Urine Bilirubin NEGATIVE NEGATIVE Urine Urobilinogen NORMAL NORMAL MG/DL Urine Leukocyte Esterase NEGATIVE NEGATIVE Urine RBC (Auto) 1+ H NEGATIVE Urine RBC RARE /HPF Urine WBC RARE /HPF Urine Squamous Epithelial Cells NONE /HPF Urine Crystals NONE /LPF Urine Bacteria NEGATIVE /HPF Urine Casts NONE /LPF Urine Mucus NEGATIVE /LPF Urine Culture Indicated NO Troponin I < 0.30 <0.30 NG/ML Test 02/17/18 08:02 02/17/18 09:14 Range/Units Sodium Level 137 135-145 MMOL/L Potassium Level 4.4 3.6-5.0 MMOL/L Chloride Level 103 98-107 MMOL/L Carbon Dioxide Level 27 21-32 MMOL/L Anion Gap 7 5-14 MMOL/L Blood Urea Nitrogen 36 H 7-18 MG/DL Creatinine 2.06 H 0.60-1.30 MG/DL Estimat Glomerular Filtration Rate 32 BUN/Creatinine Ratio 17 Glucose Level 200 H 70-105 MG/DL Calcium Level 7.3 L 8.5-10.1 MG/DL Total Bilirubin 1.1 H 0.1-1.0 MG/DL Aspartate Amino Transf (AST/SGOT) 13 5-34 U/L Alanine Aminotransferase (ALT/SGPT) 7 0-55 U/L Alkaline Phosphatase 87 40-136 U/L B-Type Natriuretic Peptide 263.4 H <100.0 PG/ML Total Protein 5.3 L 6.4-8.2 GM/DL Albumin 3.5 3.2-4.5 GM/DL Blood Gas Puncture Site L RADIAL Blood Gas Patient Temperature 103.2 Arterial Blood pH 7.27 *L 7.37-7.43 Arterial Blood Partial Pressure CO2 62 H 35-45 MMHG Arterial Blood Partial Pressure O2 110 H 79-93 MMHG Arterial Blood HCO3 26 23-27 MMOL/L Arterial Blood Total CO2 27.7 21.0-31.0 MMOL/L Arterial Blood Oxygen Saturation 97 94-100 % Arterial Blood Base Excess 0.3 -2.5-2.5 MMOL/L Omi Test YES-POS Blood Gas Ventilator Setting YES Blood Gas Inspired Oxygen 80% Micro Results Microbiology 02/17/18 Blood Culture - Preliminary, Resulted No growth 02/17/18 Blood Culture - Preliminary, Resulted No growth 02/17/18 Gram Stain - Final, Resulted 02/17/18 Sputum Culture - Preliminary, Resulted Normal carrie Gram Negative Ricardo 02/17/18 Influenza Types A,B Antigen (SELIN) - Final, Complete My Orders Orders - KIMBERLY CANTOR MD Verapamil Injection (Calan Injection) (02/17/18 07:34) Adenosine Injection (Adenocard Injection (02/17/18 07:34) Ns Iv 1000 Ml (Sodium Chloride 0.9%) (02/17/18 07:35) Cbc With Automated Diff (02/17/18 07:37) Comprehensive Metabolic Panel (02/17/18 07:37) Lactic Acid Analyzer (02/17/18 07:37) Blood Culture (02/17/18 07:37) Sputum Culture (02/17/18 07:37) Ua Culture If Indicated (02/17/18 07:37) Protime With Inr (02/17/18 07:37) Partial Thromboplastin Time (02/17/18 07:37) Chest 1 View, Ap/Pa Only (02/17/18 07:37) O2 (02/17/18 07:37) Saline Lock/Iv-Start (02/17/18 07:37) Ns Iv 1000 Ml (Sodium Chloride 0.9%) (02/17/18 07:45) Vital Signs Adult Sepsis Patie Q1H (02/17/18 07:37) Remove Rings In Anticipation O (02/17/18 07:37) Saline Lock/Iv-Start (02/17/18 07:37) Ns Iv 1000 Ml (Sodium Chloride 0.9%) (02/17/18 07:37) Ns Iv 1000 Ml (Sodium Chloride 0.9%) (02/17/18 07:39) Adenosine Injection (Adenocard Injection (02/17/18 07:39) Influenza A And B Antigens (02/17/18 07:47) Adenosine Injection (Adenocard Injection (02/17/18 08:00) Adenosine Injection (Adenocard Injection (02/17/18 08:00) Adenosine Injection (Adenocard Injection (02/17/18 08:00) Verapamil Injection (Calan Injection) (02/17/18 08:00) Acetaminophen Suppository (Tylenol Suppo (02/17/18 07:47) Arterial Blood Gas (02/17/18 07:47) Acetaminophen Suppository (Tylenol Suppo (02/17/18 07:47) BNP (02/17/18 08:23) Troponin I (02/17/18 08:23) Piperacillin Sodium/Tazobactam (Zosyn Vi (02/17/18 08:31) Ns (Ivpb) (Sodium Chloride 0.9% Ivpb Bag (02/17/18 08:31) Chest 1 View, Ap/Pa Only (02/17/18 08:41) Propofol Injection (Diprivan Injection) (02/17/18 08:37) Propofol Drip (Icu) (Diprivan Drip (Icu) (02/17/18 08:38) Ns (Ivpb) (Sodium Chloride 0.9%) (02/17/18 08:49) Norepinephrine (Levophed) (02/17/18 08:49) Arterial Blood Gas (02/17/18 09:14) Etomidate Injection (Amidate Injection) (02/17/18 07:33) Fentanyl Injection (Sublimaze Injection (02/17/18 07:33) Midazolam Injection (Versed Injection) (02/17/18 07:33) Succinylcholine Injection (Succinylcholi (02/17/18 07:33) Ns Iv 1000 Ml (Sodium Chloride 0.9%) (02/17/18 13:58) Medications Given in ED Vital Signs/I&O Capillary Refill : Progress Note : Progress Note Seen and evaluated on arrival by EMS. Patient is currently in extremis. High flow O2 initiated. Second IV line initiated. Sepsis order set initiated including labs, lactic acid, blood cultures, UA and chest x-ray. Normal saline 3 L bolus ordered to provide 30 mL/kg IV due to concerns for septic shock given his respiratory failure. This exceeds ideal body weight requirements for 6 foot 0 inches at 77.6 kg ideal body weight. Patient does have heart failure history and is on Lasix. Also has liver transplant history and is on immune modulators. Arrives with findings of SVT. Adenosine 6 mg IV initiated and this did not change her heart rate. Repeated at 12 mg rapid IV push and this did not change the heart rate. Repeated again at 12 mg IV push and did get change in rhythm from SVT to A. fib RVR with a rate of 130s to 140s. Verapamil 5 mg IV given. I did have néstor discussion with the given the patient's current status in extremis. Likely will need intubation. Certainly will need transfer as he is a liver transplant recipient with a fever of 103.5. He did receive Tylenol 650 per rectum. He has had some nausea and vomiting. Malin catheter placed. I did speak with the transfer center triage nurse 0815. We discussed current status and concerns. He will talk to the transfer doctor. After conversation, we agree the patient will require an intubation due to his increasing oxygen needs and declining status. 0842: Patient intubated by me times one attempt via video scope. 0900: Central line placed to the right IJ via ultrasound guidance 1 stick without complications. Patient has been initiated on Zosyn 4.5 g IV and did receive fentanyl 100 g IV and Versed 5 mg IV after intubation for postintubation sedation. Received 40 mg of propofol IV bolus and started on propofol drip for sedation. was updated and agrees to transfer. Patient will go by helicopter flight service due to critical condition but stable currently. Currently on normal saline at 125 an hour after 3 L boluses been completed. 0915: Blood pressure 103/57 on Levophed at 10 mcg/m with heart rate of 106 and O2 sat at 96 percent on vent with rate of 20 , tidal volume of 450, PEEP 8 and FiO2 80 percent. 0918: Flight crew arrives. I attest to focus examination this time. Reports a flight crew by me. 0930: ABG does show increased CO2 slightly. Tidal volume increased to 500 and end- tidal CO2 decreased to 44. Heart rate and other labs remain similar. ECG Initial ECG Impression Date: Feb 17, 2018 Initial ECG Impression Time: 07:29 Initial ECG Rate: 194 Initial ECG Rhythm: SVT Comment SVT with rate of 194. No evidence of ST elevation ND. Interpreted by me. EKG : EKG Time: 07:38 Rate: 140 Intervals Continues rhythm strip shows conversion of SVT to atrial fibrillation at approximately 0738 with heart rate to the 140s. No evidence of ST elevation ND. ECG Comparisson: Changed ECG Impression: Atrial Fibrillation Diagnostic Imaging Diagonstic Imaging: Xray Plain Films/CT/US/NM/MRI: chest Comments VIA [facility]. [place], [place] NAME: DAVID CHONG MED REC#: [id number] PT STATUS: REG ER : 1945 PHYSICIAN: KIMBERLY CANTOR MD ADMIT DATE: 02/17/18/ER Draft Date of Exam:02/17/18 CHEST 1 VIEW, AP/PA ONLY Portable semierect AP chest at 750 hours. INDICATION: Right-sided chest pain. FINDINGS: Both the heart and the central pulmonary vascularity do seem somewhat more prominent than noted on the prior exam of 02/14/2018. There is still no evidence for overt congestive failure but this appearance may herald early pulmonary congestion. The prior exam also noted a soft tissue fullness about the right hilum and the right paratracheal region. Those findings are again evident and no different. However, in the interval since the prior study, a vague area of increased density has developed about the right hilum and in the right infrahilar region. This may be secondary to pneumonia/atelectasis. The left lung is generally clear. The mediastinum is unchanged. The osseous structures are intact. Sternal wires and surgical clips are again noted. IMPRESSION: 1. In the interval since the prior study, a vague area of increased density has developed about the right hilum and the right infrahilar region. This finding is worrisome for pneumonia/atelectasis. A followup exam would be recommended for further study. 2. The prominence of the heart and the central pulmonary vascularity may herald early pulmonary congestion. 3. I would concur with recommendation of the previous exam that CT of the chest be performed for further evaluation of the right paratracheal region and right hilum. Dictated on workstation # [id number] Dict: 02/17/18 0807 Trans: 02/17/18 0814 [id number] Interpreted by: BUCK SMITH MD Electronically signed by: Cruz Imaging: Xray Plain Films/CT/US/NM/MRI: chest Comments NAME: DAVID CHONG MED REC#: [id number] PT STATUS: DEP ER : 1945 PHYSICIAN: KIMBERLY CANTOR MD ADMIT DATE: 02/17/18/ER Signed Date of Exam: 02/17/18 CHEST 1 VIEW, AP/PA ONLY PATIENT HISTORY: Tube placement and central line placement. TECHNIQUE: Single frontal view of the chest. COMPARISON: 02/17/2018. FINDINGS: The tip of the right jugular line projects over the low SVC. The endotracheal tube tip is approximately 2.5 cm from the joe. An enteric tube crosses the [id number], with the sidehole appearing to project over the stomach. Sternotomy wires and post CABG changes are noted. There are perihilar opacities bilaterally, with patchy airspace opacities in the right upper lobe and the left lung base as well as diffuse hazy opacities in the lungs. No pneumothorax is seen. There is mild cardiomegaly. IMPRESSION: 1. The endotracheal tube is approximately 2.5 cm from the joe. The tip of the right jugular line projects over the low SVC. 2. Perihilar opacities and additional patchy airspace and hazy opacities in the lungs, likely due to edema. Dictated by: Dictated on workstation # [id number] Dict: 02/17/18 0911 Trans: 02/17/18 1109 Interpreted by: MARCY STACK MD Electronically signed by: MARCY STACK MD 02/17/18 1109 Critical Care Note Critical Care Start Time: 07:30 Stop Time: 09:30 Total Time (minutes) 60 Departure Impression Primary Impression: Severe sepsis Additional Impressions: Pneumonia Qualified Codes: J18.1 - Lobar pneumonia, unspecified organism Atrial fibrillation with RVR Liver transplanted Disposition: 02 XFER SHT-TRM HOSP Condition: Critical Transfer Time Spoke to Accepting Phy: 08:15 Transfer Time: 08:39 Transfer Facility: [place], [place], Dr. Cortez accepting. Method of Transfer: Air Departure-Patient Inst. Referrals: DURAN PETER DO (PCP/Family) Primary Care Physician KIMBERLY CANTOR MD Feb 17, 2018 08:00
[2018-02-17 08:02] LABS: INR 2.2 (0.8-1.4); PROTHROMBIN TIME PATIENT 24.2 SEC (12.2-14.7)
[2018-02-17 08:05] LABS: ABG BASE EXCESS 0.2 MMOL/L (-2.5-2.5); ABG OXYGEN SATURATION 98 % (94-100); ABG PCO2 51 MMHG (35-45); ABG PO2 117 MMHG (79-93); ABG TCO2 26.3 MMOL/L (21.0-31.0)
[2018-02-17 08:09] LABS: ABG PH 7.33 (7.37-7.43); ALLENS TEST YES-POS; INSPIRED O2 15; VENTILATOR NO
[2018-02-17 08:10] LABS: PATIENT TEMP 103.5
--- NOTE | 2018-02-17 08:14 | Diagnostic Imaging Report ---
Portable semierect AP chest at 750 hours. INDICATION: Right-sided chest pain. FINDINGS: Both the heart and the central pulmonary vascularity do seem somewhat more prominent than noted on the prior exam of 02/14/2018. There is still no evidence for overt congestive failure but this appearance may herald early pulmonary congestion. The prior exam also noted a soft tissue fullness about the right hilum and the right paratracheal region. Those findings are again evident and no different. However, in the interval since the prior study, a vague area of increased density has developed about the right hilum and in the right infrahilar region. This may be secondary to pneumonia/atelectasis. The left lung is generally clear. The mediastinum is unchanged. The osseous structures are intact. Sternal wires and surgical clips are again noted. IMPRESSION: 1. In the interval since the prior study, a vague area of increased density has developed about the right hilum and the right infrahilar region. This finding is worrisome for pneumonia/atelectasis. A followup exam would be recommended for further study. 2. The prominence of the heart and the central pulmonary vascularity may herald early pulmonary congestion. 3. I would concur with recommendation of the previous exam that CT of the chest be performed for further evaluation of the right paratracheal region and right hilum. Dictated by: Dictated on workstation # [id number]
[2018-02-17 08:16] LABS: BILIRUBIN,URINE NEGATIVE (NEGATIVE); CLARITY,URINE CLEAR; COLOR,URINE YELLOW; GLUCOSE, URINE (UA) NEGATIVE (NEGATIVE); KETONES,URINE NEGATIVE (NEGATIVE); LEUKOCYTE ESTERASE ,URINE NEGATIVE (NEGATIVE); NITRITE,URINE NEGATIVE (NEGATIVE); PH,URINE 6.5 (5-9); PROTEIN,URINE 3+ (NEGATIVE); UROBILINOGEN,URINE NORMAL (NORMAL)
[2018-02-17 08:28] LABS: ALBUMIN 3.5 GM/DL (3.2-4.5); BILIRUBIN,TOTAL 1.1 MG/DL (0.1-1.0); CALCIUM 7.3 MG/DL (8.5-10.1); CREATININE SERUM 2.06 MG/DL (0.60-1.30); POTASSIUM 4.4 MMOL/L (3.6-5.0); TOTAL PROTEIN 5.3 GM/DL (6.4-8.2)
[2018-02-17] MEDS ORDERED: PIPERACILLIN/TAZO 4.5 GM VIAL (ZOSYN) IV ONE (08:31)
[2018-02-17] MEDS ORDERED: NS (IVPB) 100 ML ONE (08:31)
[2018-02-17] MEDS ORDERED: proPOfol 200 MG/20 ML (DIPRIVAN) VIAL IV ONE (08:37)
[2018-02-17] MEDS ORDERED: PROPOFOL DRIP (ICU) 100 ML IV ONE (08:38)
[2018-02-17 08:39] LABS: BACTERIA,URINE NEGATIVE /HPF; RBC,URINE RARE /HPF; WBC,URINE RARE /HPF
[2018-02-17] MEDS ORDERED: NOREPINEPHRINE 4 MG/4 ML (LEVOPHED) AMP IV ONE (08:49)
[2018-02-17] MEDS ORDERED: NS (IVPB) 250 ML ONE (08:49)
[2018-02-17] MEDS ORDERED: NS 250 ML (IVPB) BAG IV ONE (09:00)
[2018-02-17] MEDS ORDERED: IOHEXOL 350 MG/ML 100 ML (OMNIPAQUE 350) VIAL IV ONE (09:00)
[2018-02-17] MEDS ORDERED: BARIUM SUSPENSION 2.1% (VANILLA SILQ) 450 ML PO ONE (09:00)
[2018-02-17] MEDS ORDERED: CATHETER FLUSH 10 ML SYR IV PRN (09:00)
--- NOTE | 2018-02-17 09:16 | Diagnostic Imaging Report ---
PATIENT HISTORY: Tube placement and central line placement. TECHNIQUE: Single frontal view of the chest. COMPARISON: 02/17/2018. FINDINGS: The tip of the right jugular line projects over the low SVC. The endotracheal tube tip is approximately 2.5 cm from the joe. An enteric tube crosses the [id number], with the sidehole appearing to project over the stomach. Sternotomy wires and post CABG changes are noted. There are perihilar opacities bilaterally, with patchy airspace opacities in the right upper lobe and the left lung base as well as diffuse hazy opacities in the lungs. No pneumothorax is seen. There is mild cardiomegaly. IMPRESSION: 1. The endotracheal tube is approximately 2.5 cm from the joe. The tip of the right jugular line projects over the low SVC. 2. Perihilar opacities and additional patchy airspace and hazy opacities in the lungs, likely due to edema. Dictated by: Dictated on workstation # [id number]
[2018-02-17 09:21] LABS: ABG BASE EXCESS 0.3 MMOL/L (-2.5-2.5); ABG OXYGEN SATURATION 97 % (94-100); ABG PCO2 62 MMHG (35-45); ABG PO2 110 MMHG (79-93); ABG TCO2 27.7 MMOL/L (21.0-31.0)
[2018-02-17 09:23] LABS: ABG PH 7.27 (7.37-7.43); ALLENS TEST YES-POS; INSPIRED O2 80%; PATIENT TEMP 103.2; VENTILATOR YES
[2018-02-17 09:50] VITALS: BP 103/84
[2018-02-17] MEDS ORDERED: NS IV 1000 ML 1,000 ML IV STA (13:58)
== END 2018-02-17 09:45 | disposition short-term general hospital (02) ==
LOC: EDUNIT# 07:31 → ER 07:32
DX: A41.9 Sepsis, unspecified organism (principal); R65.20 Severe sepsis without septic shock; J18.9 Pneumonia, unspecified organism; I48.0 Paroxysmal atrial fibrillation; I25.10 Atherosclerotic heart disease of native coronary artery without angina pectoris; E11.40 Type 2 diabetes mellitus with diabetic neuropathy, unspecified; E78.00 Pure hypercholesterolemia, unspecified; I10 Essential (primary) hypertension; Z94.4 Liver transplant status; Z95.5 Presence of coronary angioplasty implant and graft; Z95.1 Presence of aortocoronary bypass graft; Z97.8 Presence of other specified devices; Z79.01 Long term (current) use of anticoagulants; Z79.4 Long term (current) use of insulin; Z88.5 Allergy status to narcotic agent; Z88.6 Allergy status to analgesic agent
CPT/HCPCS: 31500; 36415; 36600; 71045; 80053; 81000; 82805; 83605; 83880; 84484; 85025; 85610; 85730; 87040; 87070; 87205; 87804; 94799; 96361; 96365; 96375

== ENCOUNTER → 2018-02-27 | Outpatient (CLI) | payer MEDICARE ==
--- NOTE | 2018-02-27 15:26 | Diagnostic Imaging Report ---
PROCEDURE: CT chest without contrast. TECHNIQUE: Multiple contiguous axial images were obtained through the chest without the use of intravenous contrast. INDICATION: Questionable right lung mass. Patient had abnormal recent chest radiograph describing fullness in the right paratracheal and perihilar location. Study is performed for further evaluation. COMPARISON: Correlation is made with prior chest radiograph from 02/14/2018 as well as 02/17/2018. FINDINGS: Postop changes of median sternotomy and CABG are identified. The aorta is calcified but not aneurysmal. There is marked calcification within the coronary arteries. No axillary lymphadenopathy is identified. There are small lymph nodes within the mediastinum. Small nodes in right paratracheal location are seen. However, no mass in the right paratracheal location is visualized. The chest x-ray abnormality most likely is owing to mediastinal fat. No definite hilar mass is seen, however, franklin are limited in evaluation due to absence of intravenous contrast. No pericardial or pleural fluid is identified. Parenchymal evaluation does show the central airways to be patent. There is some persistent infiltrate in the right upper lobe. Minimal patchy infiltrate bilateral lower lobes is also seen. There appears to be minimal tree in bud opacities left lower lobe. The upper abdomen does show perihepatic and perisplenic free fluid. IMPRESSION: 1. No evidence of a mediastinal or right hilar mass. Fullness in the right paratracheal region most likely is caused by prominent mediastinal fat. 2. Bilateral pulmonary infiltrates, as described predominantly right upper lobe and bilateral lower lobes, likely on an infectious/inflammatory basis. 3. Upper abdominal ascites. Dictated by: Dictated on workstation # [id number]
== END ==
LOC: RAD 13:36
PROVIDERS: ATTEND Internal Medicine
DX: R91.8 Other nonspecific abnormal finding of lung field (principal); R18.8 Other ascites
CPT/HCPCS: 71250

== ENCOUNTER → 2018-03-21 | Outpatient (CLI) | payer MEDICARE ==
--- NOTE | 2018-03-21 12:17 | Diagnostic Imaging Report ---
INDICATION: Pneumonia. COMPARISON: 02/17/2018 FINDINGS: Frontal and lateral radiographic views of the chest were obtained and demonstrate interval removal of endotracheal tube, enteric tube, and right internal jugular central venous catheter. There has been interval clearing of the left lower lung field and significant improved aeration on the right. There are residual linear and curvilinear perihilar opacities on the right, but appearance is more suggestive of scarring and atelectasis. No large effusion or pneumothorax is seen. Cardiac silhouette and pulmonary vasculature within normal limits. Sternotomy wires are noted. Bony structures show no gross acute abnormalities. IMPRESSION: 1. Significant interval improved aeration. Again, there are residual linear and curvilinear perihilar opacities in the right, but these are felt to be chronic and related to underlying scarring and/or atelectasis. Dictated by: Dictated on workstation # [id number]
== END ==
LOC: RAD 11:45
PROVIDERS: ATTEND Internal Medicine
DX: J18.9 Pneumonia, unspecified organism (principal)
CPT/HCPCS: 71046

== ENCOUNTER → 2018-05-18 | Outpatient (CLI) | payer MEDICARE ==
--- NOTE | 2018-05-18 12:49 | Diagnostic Imaging Report ---
INDICATION: One month post fall. Pain. TECHNIQUE: 3 views of the right knee CORRELATION STUDY: None FINDINGS: Joint spaces are mildly narrowed. Articular surfaces are maintained. No significant osteophyte formation. There is rather pronounced severity chondrocalcinosis, right greater than left. Small suprapatellar joint effusion. Mild soft tissue edema anteriorly. Vascular calcification. IMPRESSION: 1. Negative for acute bony abnormality of the knee. Advanced chondrocalcinosis of the knee particularly lateral compartment. Does produce some degree of soft tissue swelling and edema. Dictated by: Dictated on workstation # [id number]
== END ==
LOC: LAB 11:20
PROVIDERS: ATTEND Internal Medicine
DX: M11.261 Other chondrocalcinosis, right knee (principal); E11.9 Type 2 diabetes mellitus without complications; W19.XXXA Unspecified fall, initial encounter
CPT/HCPCS: 73562

== ENCOUNTER → 2018-06-12 | Outpatient (CLI) | payer MEDICARE ==
--- NOTE | 2018-06-12 11:03 | Diagnostic Imaging Report ---
INDICATION: Hemoptysis. EXAMINATION: PA and lateral chest. FINDINGS: There are postop changes from CABG surgery. There is some scarring in the right upper lobe. There are no infiltrates, effusions or pneumothoraces. IMPRESSION: Postsurgical changes of the chest. No change compared to 03/21/2018. Dictated by: Dictated on workstation # [id number]
== END ==
LOC: RAD 10:35
PROVIDERS: ATTEND Internal Medicine
DX: R04.2 Hemoptysis (principal); Z98.890 Other specified postprocedural states
CPT/HCPCS: 71046

== ENCOUNTER → 2018-08-10 | Outpatient (CLI) | payer MEDICARE | LOC: CARD 09:49 | PROVIDERS: ATTEND Internal Medicine | DX: R55 Syncope and collapse (principal) | CPT/HCPCS: 93225; 93226 ==

== ENCOUNTER 2018-08-31 08:06 | Inpatient (IN) | payer MEDICARE ==
[2018-08-31] VITALS (16 sets, daily range): BP systolic 86–140; BP diastolic 42–67
[~2018-08-31] VITALS: Ht 182.9 cm; Wt 108.4 kg
[2018-08-31] MEDS ORDERED: DILTIAZEM IV FOR DRIP 125 MG in NS (IVPB) 100 ML IV SCH ×2 (08:30→11:15)
[2018-08-31] MEDS ORDERED: ACETAMINOPHEN 500 MG TAB (TYLENOL) PO ONE (08:30)
[2018-08-31] MEDS ORDERED: RT-ALBUTEROL/IPRATROPIUM 3 ML (DUONEB) VIAL INH ONE (08:30)
[2018-08-31] MEDS ORDERED: NS IV 1000 ML 1,000 ML IV ONE ×3 (08:33→09:45)
--- OUTSIDE RECORDS SUMMARY | 2018-08-31 08:33 | XMS REPORT | Encounter Summary ---
Author Author [facility] Organization [facility] Address Unknown Phone Unavailable Care Team Providers Care Lion Tamer Name Role Phone Jamie Sanders MD PCP [...] Roberto Unavailable Unavailable Kenneth Lewis MD Unavailable Mrayanne Oliva DO Unavailable Mattie Callaway Unavailable Unavailable Roya Gottlieb Unavailable Unavailable Batsheva Long MA Unavailable Unavailable Carlotta De La Torre Unavailable Unavailable Justine Marquez Unavailable Unavailable Saad Godinez MD Unavailable Yeyo Roberson MD Unavailable Cuba Li MD Unavailable Encounter Details Date Type Department Care Team Description 08/25/2018 Documentation Center for Valdemar Phillips MD Transplantation-Liver [address] Transplant Hep [id number] [address] [address] [facility] [phone] [place] [address] [phone] Social History Tobacco Use Types Packs/Day Years Used Date Former Smoker Cigarettes 1 40 Smokeless Tobacco: Never Used Comments: quit in 1999 Alcohol Use Drinks/Week oz/Week Comments No Sex Assigned at Date Recorded Not on file as of this encounter Functional Status Functional Status Response Date of Assessment Does the patient have a hearing impairment: No 08/21/2018 Does the patient have a visual impairment: Yes 08/21/2018 Does the patient have impaired ambulation: No 08/21/2018 Does the patient have an activity of daily living No 08/21/2018 (ADL) impairment: Does the patient have an instrumental activity of No 08/21/2018 daily living (IADL) impairment: Cognitive Status Response Date of Assessment Does the patient have a cognitive impairment: No 08/21/2018 as of this encounter Progress Notes * Peng Rivas - 08/25/2018 8:16 AM CDT Faxed request to Dr. Li at fax# [phone], requesting all patient cardiology records.Peng Rivas in this encounter Plan of Treatment Not on fileas of this encounter Goals Patient Goal Type Goal Recent Progress Patient-Stat Author ed? Result Component HEMOGLOBIN A1C < 7.0 6.7 (10/21/2010 11:50 AM No ALEXSANDER Garduno) KILEY Mcintosh as of this encounter Visit Diagnoses Not on filein this encounter
--- OUTSIDE RECORDS SUMMARY | 2018-08-31 08:33 | XMS REPORT | Encounter Summary ---
Author Author [facility] Organization [facility] Address Unknown Phone Unavailable Care Team Providers Care Client Manager Large Law Name Role Phone Jamie Sanders MD PCP [...] Unavailable Maryanne Oliva DO Unavailable Mattie Callaway Unavailable Unavailable BullGuanacoRoya Unavailable Unavailable Batsheva Long MA Unavailable Unavailable Carlotta De La Torre Unavailable Unavailable Justine Marquez Unavailable Unavailable Saad Godinez MD Unavailable Yeyo Roberson MD Unavailable Cuba Li MD Unavailable Reason for Visit * Reason Comments Medication Dose Change Encounter Details Date Type Department Care Team Description 08/30/2018 Telephone Center for Mattie Callaway BSN Medication Dose Change Transplantation-Liver Transplant [facility] [address] [place] [address] Social History Tobacco Use Types Packs/Day Years [...] impairment: No 08/21/2018 as of this encounter Miscellaneous Notes * Telephone Encounter - Mattie Callaway BSN - 08/30/2018 3:15 PM CDT LVM asking for call back regarding dose change and iron infusion in this encounter Plan of Treatment Not on fileas of this encounter Goals Patient Goal Type Goal Recent Progress Patient-Stat Author ed? Result Component HEMOGLOBIN A1C < 7.0 6.7 (10/21/2010 11:50 AM No ALEXSANDER Garduno) KILEY Mcintosh as of this encounter Visit Diagnoses Not on filein this encounter
--- OUTSIDE RECORDS SUMMARY | 2018-08-31 08:33 | XMS REPORT | Clinical Summary ---
Author Author [facility] Organization [facility] Address Unknown Phone Unavailable Care Team Providers Care Retail Administrative Assistant Name Role Phone Jamie Sanders MD PCP [...] Roberson MD Unavailable Cuba Li MD Unavailable Source Comments Some departments are not documenting in the electronic medical record. If you do not see the information that you expected, contact Release of Information in the Health Information Management department at [phone] for further assistance in locating additional records.[facility] Allergies Active Allergy Reactions Severity Noted [...] by mouth Active 100 mg tablet daily. oxyCODone (ROXICODONE) 5 Take 5 mg by mouth every Active mg tablet 6 hours as needed Docusate Calcium 50 mg Take 100 mg [...] mention of complication, not stated as uncontrolled other medication 1 Dose. CHAZ COMFORT get Active for feet. blood sugar diagnostic Use 1 Strip as directed Active (GLUCOSE METER TEST three times daily. STRIP) test strip accuchek wild Blood-Glucose Meter Accuchek WILD METER 1 Kit 0 03/04/20 Active kitIndications: Diabetes 17 mellitus without complication (HCC) senna/docusate Take 1 tablet by mouth Active (SENOKOT-S) 8.6/50 mg daily. tablet HYDROcodone/acetaminophen Take 2 tablets by mouth Active (NORCO) 5/325 mg tablet three times daily metoprolol XL (TOPROL XL) Take 1 tablet by mouth 90 tablet 3 02/22/20 Active 50 mg extended release daily. 18 tablet ursodiol (RANJIT) 250 mg Take 1 tablet by mouth 60 tablet 3 02/21/20 Active tablet twice daily with meals. 18 tacrolimus (PROGRAF) 1 mg Take 1 capsule by mouth 60 capsule 3 Active capsule twice daily. 18 aspirin 81 mg chewable Chew 1 tablet by mouth 90 tablet 3 02/22/20 Active tablet daily. Take with food. 18 lisinopril (PRINIVIL; Take 1 tablet by mouth 90 tablet 3 02/21/20 Active ZESTRIL) 5 mg tablet daily. 18 pregabalin (LYRICA) 150 Take 150 mg by mouth Active mg capsule twice daily. warfarin (COUMADIN) 5 mg Take 1 tablet by mouth as 90 tablet 3 Active tablet directed. Take 5 mg by 18 mouth five times weekly on Tuesday, Tuesday, Tuesday, , Tuesday. Take in the evening. warfarin (COUMADIN) 2.5 Take 1 tablet by mouth as 90 tablet 3 Active mg tablet directed. Take 2.5 mg by 18 mouth two times weekly on Tuesday & Tuesday. Take in the evening. furosemide (LASIX) 20 mg Take 3 tablets by mouth 90 tablet 3 02/22/20 Active tablet every morning. After 18 having your labs checked, your doctors may increase your dose back to 120 mg by mouth once daily metoprolol XL (TOPROL XL) Take 1 tablet by mouth 30 tablet 3 04/09/20 Active 50 mg extended release daily. 18 tablet oxyCODONE (ROXICODONE, Take 1 tablet by mouth 18 tablet 0 02/22/20 Active OXY-IR) 5 mg tablet daily for pain. 18 atorvastatin (LIPITOR) 10 Take one tablet by mouth 90 tablet 3 Active mg tablet daily. 18 temazepam (RESTORIL) 15 Take 15 mg by mouth at 08/21/20 Discontin mg capsule bedtime as needed. 18 ued Active Problems Problem Noted Date Shaking spells [...] system. Per PCP? Or Cardiology? Results for CASTILLOELIZABETHDALJIT Aguilera ( ) as of 11/01/2013 15:31 Ref. [...] Resolved Problems Problem Noted Date Resolved Date Pneumonia 02/17/2018 02/20/2018 Septic shock (HCC) 02/17/2018 02/20/2018 Acute hypoxemic respiratory failure (HCC) 02/17/2018 02/20/2018 Acute on chronic renal insufficiency 02/17/2018 02/20/2018 Sepsis(995.91) 01/31/2011 10/29/2014 PRADO (nonalcoholic steatohepatitis) 04/01/2010 11/21/2012 Encounters Date Type Specialty Care Team Description 08/30/2018 Telephone Transplant Surgery Mattie Callaway BSN Medication Dose Change 08/25/2018 Documentation Transplant Surgery Valdemar Phillips MD 08/21/2018 Office Visit Transplant Surgery Valdemar Phillips MD Anemia, unspecified type (Primary Dx); Status post liver transplant ([facility]) 08/21/2018 Hospital Lab Valdemar Phillips MD Liver transplant status Encounter ([facility]) 08/16/2018 Telephone Transplant Surgery Mattie Callaway BSN Labs Only from Last 3 Months Immunizations Name Dates Previously Given Next Due Flu Vaccine=>6 Months 08/21/2018 Quadrivalent PF Tdap Vaccine 07/02/2010 Family History Medical History [...] Vital Sign Reading Time Taken Blood Pressure 112/56 08/21/2018 12:28 PM CDT Pulse 95 08/21/2018 12:28 PM CDT Temperature 37.2 C (98.9 F) 08/21/2018 12:28 PM CDT Respiratory Rate 18 08/21/2018 12:28 PM CDT Oxygen Saturation 95% 08/21/2018 12:28 PM CDT Inhaled Oxygen - - Concentration Weight 106.6 kg (235 lb) 08/21/2018 12:28 PM CDT Height 182.9 cm (6') 08/21/2018 12:28 PM CDT Body Mass Index 31.87 08/21/2018 12:28 PM CDT Plan of Treatment Health Maintenance Due Date Last Done Comments SHINGLES RECOMBINANT 1995 VACCINE (1 of 2) ABDOMINAL AORTIC ANEURYSM 2010 SCREENING PNEUMONIA (PCV13/PPSV23) 2010 VACCINES (1 of 2 - PCV13) PHYSICAL (COMPREHENSIVE) 08/28/2015 08/28/2014 (Previously completed), EXAM 12/09/2010 DILATED EYE EXAM 03/14/2017 03/14/2016, 01/13/2016, 11/28/2013 (Previously completed) HBA1C 09/03/2017 03/04/2017, 09/06/2016, 03/05/2016, Additional history exists FOOT EXAM 03/04/2018 03/04/2017, 03/04/2017, 09/06/2016, Additional history exists TETANUS VACCINE 07/02/2020 07/02/2010 COLORECTAL CANCER 11/08/2020 11/08/2010 SCREENING HEPATITIS C SCREENING Completed 03/30/2010, 03/30/2010, 01/01/2010, Additional history exists PERTUSSIS VACCINE Completed 07/02/2010 INFLUENZA VACCINE Completed 08/21/2018, 08/14/2015 Goals Patient Goal Type Goal Recent Progress Patient-Stat Author ed? Result Component HEMOGLOBIN A1C < 7.0 6.7 (10/21/2010 11:50 AM No Laureen, GRAPE PRUNER) KILEY Mcintosh Procedures Procedure Name Priority Date/Time Associated Diagnosis Comments PROTEIN/CR RATIO,UR RAN Routine 08/21/2018 Liver replaced by Results for this 11:33 AM CDT transplant (HCC) procedure are in the results section. TRANSFERRIN Add on 08/21/2018 Anemia Results for this 11:04 AM CDT procedure are in the results section. IRON + BINDING CAPACITY + Add on 08/21/2018 Anemia Results for this %SAT+ FERRITIN 11:04 AM CDT procedure are in the results section. 25-OH VITAMIN D (D2 + D3) Routine 08/21/2018 Disorder of bone density Results for this 11:04 AM CDT and structure, procedure are in the unspecified results section. Liver replaced by transplant (HCC) LIPID PROFILE Routine 08/21/2018 Liver replaced by Results for this 11:04 AM CDT transplant (HCC) procedure are in the results section. TACROLIMUS LEVEL([id number]) Routine 08/21/2018 Liver replaced by Results for this 11:04 AM CDT transplant (HCC) procedure are in the results section. GGTP Routine 08/21/2018 Liver replaced by Results for this 11:04 AM CDT transplant (HCC) procedure are in the results section. PHOSPHORUS Routine 08/21/2018 Liver replaced by Results for this 11:04 AM CDT transplant (HCC) procedure are in the results section. MAGNESIUM Routine 08/21/2018 Liver replaced by Results for this 11:04 AM CDT transplant (HCC) procedure are in the results section. CBC AND DIFF Routine 08/21/2018 Liver replaced by Results for this 11:04 AM CDT transplant (HCC) procedure are in the results section. COMPREHENSIVE METABOLIC Routine 08/21/2018 Liver replaced by Results for this PANEL 11:04 AM CDT transplant (HCC) procedure are in the results section. from Last 3 Months Results * PROTEIN/CR RATIO,UR RAN (08/21/2018 11:33 AM) Protein, Random 11 MG/DL [facility] Creatinine, Random 34 MG/DL [facility] Protein/CR ratio 0.3 [facility] Specimen Urine - Urine Performing Organization Address [facility] Phone Number [facility] [address] [place] [address] * IRON + BINDING CAPACITY + %SAT+ FERRITIN (08/21/2018 11:04 AM) Iron 40 (L) 50 - 185 MCG/DL [facility] Iron Binding-TIBC 434 (H) 270 - 380 MCG/DL [facility] % Saturation 9 (L) 28 - 42 % [facility] Ferritin 19 (L) 30 - 300 NG/ML [facility] Performing Organization Address [facility] Phone Number [facility] [address] [place] [address] * GGTP (08/21/2018 11:04 AM) GGTP 27 9 - 64 U/L [facility] Specimen Blood Performing Organization Address [facility] Phone Number [facility] [address] [place] [address] * TACROLIMUS LEVEL(FK506) (08/21/2018 11:04 AM) Tacrolimus 6.2 2 - 15 NG/ML [facility] Comment: Target concentrations vary by type of transplant, patient response, concomitant immunosuppression and post-transplant time interval.Test was performed on whole blood using Orgenesis QMS reagent and a Kristy Erik AU analyzer. Specimen Blood Performing Organization Address [facility] Phone Number [facility] [address] [place] [address] * 25-OH VITAMIN D (D2 + D3) (08/21/2018 11:04 AM) Vitamin D(25-OH)Total 21.6 (L) 30 - 80 NG/ML [facility] Specimen Blood Performing Organization Address [facility] Phone Number [facility] [address] [place] [address] * CBC AND DIFF (08/21/2018 11:04 AM) White Blood Cells 7.1 4.5 - 11.0 K/UL [facility] RBC 4.93 4.4 - 5.5 M/UL [facility] Hemoglobin 12.2 (L) 13.5 - 16.5 GM/DL [facility] Hematocrit 38.5 (L) 40 - 50 % [facility] MCV 78.0 (L) 80 - 100 FL [facility] MCH 24.8 (L) 26 - 34 PG [facility] MCHC 31.8 (L) 32.0 - 36.0 G/DL [facility] RDW 18.5 (H) 11 - 15 % [facility] Platelet Count 177 150 - 400 K/UL [facility] MPV 8.2 7 - 11 FL [facility] Neutrophils 81 (H) 41 - 77 % [facility] Lymphocytes 10 (L) 24 - 44 % [facility] Monocytes 7 4 - 12 % [facility] Eosinophils 1 0 - 5 % [facility] Basophils 1 0 - 2 % [facility] Absolute Neutrophil Count 5.70 1.8 - 7.0 K/UL [facility] Absolute Lymph Count 0.70 (L) 1.0 - 4.8 K/UL [facility] Absolute Monocyte Count 0.50 0 - 0.80 K/UL [facility] Absolute Eosinophil Count 0.10 0 - 0.45 K/UL [facility] Absolute Basophil Count 0.00 0 - 0.20 K/UL [facility] Specimen Blood Performing Organization Address [facility] Phone Number [facility] [address] [place] [address] * TRANSFERRIN (08/21/2018 11:04 AM) Transferrin 291 185 - 336 MG/DL [facility] Performing Organization Address [facility] Phone Number [facility] [address] [place] [address] * PHOSPHORUS (08/21/2018 11:04 AM) Phosphorus 3.1Comment: NOTE NEW REFERENCE 2.0 - 4.5 MG/DL [facility] RANGES Specimen Blood Performing Organization Address [facility] Phone Number [facility] [address] [place] [address] * MAGNESIUM (08/21/2018 11:04 AM) Magnesium 1.6 1.6 - 2.6 mg/dL [facility] Specimen Blood Performing Organization Address [facility] Phone Number [facility] [address] [place] [address] * LIPID PROFILE (08/21/2018 11:04 AM) Cholesterol 153 <200 MG/DL [facility] Triglycerides 160 (H) <150 MG/DL [facility] HDL 26 (L) >40 MG/DL [facility] LDL 106 (H) <100 MG/DL [facility] VLDL 32 MG/DL [facility] Non HDL Cholesterol 127 MG/DL [facility] Comment: Calculated non-HDL Cholesterol (non-HDL-C) indirectly measures LDL-C, Lp(a), IDL-C, and VLDL-C.It is a surrogate marker for Apoprotein B.Goal should be less than 130 mg/dL. Specimen Blood Performing Organization Address [facility] Phone Number [facility] [address] [place] [address] * COMPREHENSIVE METABOLIC PANEL (08/21/2018 11:04 AM) Sodium 136 (L) 137 - 147 MMOL/L [facility] Potassium 4.4 3.5 - 5.1 MMOL/L [facility] Chloride 96 (L) 98 - 110 MMOL/L [facility] Glucose 257 (H) 70 - 100 MG/DL [facility] Blood Urea Nitrogen 29 (H) 7 - 25 MG/DL [facility] Creatinine 2.12 (H) 0.4 - 1.24 MG/DL [facility] Calcium 9.4 8.5 - 10.6 MG/DL [facility] Total Protein 6.7 6.0 - 8.0 G/DL [facility] Total Bilirubin 1.5 (H) 0.3 - 1.2 MG/DL [facility] Albumin 4.0 3.5 - 5.0 G/DL [facility] Alk Phosphatase 89 25 - 110 U/L [facility] AST (SGOT) 7 7 - 40 U/L [facility] CO2 31 (H) 21 - 30 MMOL/L [facility] ALT (SGPT) <3 (L) 7 - 56 U/L [facility] Anion Gap 9 3 - 12 [facility] eGFR Non 31 (L) >60 mL/min [facility] Comment: The eGFR is not validated for use in drug dosing adjustments.Continue to use estimated creatinine clearance per dosing reference text.Please contact the Clinical Pharmacist for questions. eGFR 37 (L) >60 mL/min [facility] Comment: The eGFR is not validated for use in drug dosing adjustments.Continue to use estimated creatinine clearance per dosing reference text.Please contact the Clinical Pharmacist for questions. Specimen Blood Performing Organization Address City/State/Zipcode Phone Number [facility] [address] [place] [address] from Last 3 Months
--- OUTSIDE RECORDS SUMMARY | 2018-08-31 08:34 | XMS REPORT | Encounter Summary ---
Author Author [facility] Organization [facility] Address Unknown Phone Unavailable Care Team Providers Care Plant Engineer Name Role Phone Jamie Sanders MD [...] Details Date Type Department Care Team Description 08/21/2018 [facility] Valdemar Phillips MD Liver transplant status Encounter [facility] 1st fl [address] (HCC) [id number] [place] [address] [place] [address] [phone] Social History Tobacco Use Types Packs/Day Years [...] impairment: No 08/21/2018 as of this encounter Medications at Time of Discharge Medication Sig. Disp. Refills Start Date End Date allopurinol (ZYLOPRIM) Take 100 mg by mouth 100 mg tablet daily. aspirin 81 mg chewable Chew 1 tablet by mouth 90 tablet 3 02/21/2018 tablet daily. Take with food. atorvastatin (LIPITOR) 10 Take one tablet by mouth 90 tablet 3 2017 mg tablet daily. blood sugar diagnostic Use 1 Strip as directed (GLUCOSE METER TEST three times daily. STRIP) test strip accuchek wild Blood-Glucose Meter Accuchek WILD METER 1 Kit 0 03/04/2017 kitIndications: Diabetes mellitus without complication (HCC) Cholecalciferol (Vitamin Take 1 Cap by mouth Twice 60 Cap 3 2010 D3) 1,000 unit PO Cap Daily. cyanocobalamin(DIL) Inject into the muscle (VITAMIN B-12) 100 mcg/mL every 30 days. Not had for 8 months Docusate Calcium 50 mg Take 100 mg by mouth at cap bedtime daily. furosemide (LASIX) 20 mg Take 3 tablets by mouth 90 tablet 3 2017 tablet every morning. After having your labs checked, your doctors may increase your dose back to 120 mg by mouth once daily HYDROcodone/acetaminophen Take 2 tablets by mouth (NORCO) 5/325 mg tablet three times daily insulin aspart (NOVOLOG) Inject 9 units with 75 mL 3 03/22/2014 100 unit/mL breakfast, 9 units with flexPENIndications: Type lunch, and 11 units with II or unspecified type dinner. Plus 2 for every diabetes mellitus without 40 >140 Max 80. mention of complication, not stated as uncontrolled insulin detemir(+) 34 U am and 16 U pm plus 4 box 3 03/22/2014 (LEVEMIR FLEXPEN) 100 2 units to prime pen each unit/mL (3 mL) injection time. penIndications: Type II or unspecified type diabetes mellitus without mention of complication, not stated as uncontrolled lisinopril (PRINIVIL; Take 1 tablet by mouth 90 tablet 3 02/20/2018 ZESTRIL) 5 mg tablet daily. metoprolol XL (TOPROL XL) Take 1 tablet by mouth 90 tablet 3 2017 50 mg extended release daily. tablet metoprolol XL (TOPROL XL) Take 1 tablet by mouth 30 tablet 3 2017 50 mg extended release daily. tablet mycophenolate mofetil Take 2 Caps by mouth 120 Cap 3 12/16/2010 (CELLCEPT) 250 mg PO Twice Daily. capsule omeprazole DR(+) Take 40 mg by mouth (PRILOSEC) 20 mg PO daily. capsule other medication 1 Dose. CHAZ COMFORT get for feet. oxyCODone (ROXICODONE) 5 Take 5 mg by mouth every mg tablet 6 hours as needed oxyCODONE (ROXICODONE, Take 1 tablet by mouth 18 tablet 0 02/21/2018 OXY-IR) 5 mg tablet daily for pain. pregabalin (LYRICA) 150 Take 150 mg by mouth mg capsule twice daily. rOPINIRole (REQUIP) 1 mg Take 1 mg by mouth twice tablet daily. senna/docusate Take 1 tablet by mouth (SENOKOT-S) 8.6/50 mg daily. tablet tacrolimus (PROGRAF) 1 mg Take 1 capsule by mouth 60 capsule 3 2017 capsule twice daily. ursodiol (RANJIT) 250 mg Take 1 tablet by mouth 60 tablet 3 02/20/2018 tablet twice daily with meals. warfarin (COUMADIN) 2.5 Take 1 tablet by mouth as 90 tablet 3 2017 mg tablet directed. Take 2.5 mg by mouth two times weekly on Tuesday & Tuesday. Take in the evening. warfarin (COUMADIN) 5 mg Take 1 tablet by mouth as 90 tablet 3 2017 tablet directed. Take 5 mg by mouth five times weekly on Tuesday, Tuesday, Tuesday, , Tuesday. Take in the evening. as of this encounter Plan of Treatment Not on fileas of this encounter Goals Patient Goal Type Goal Recent Progress Patient-Stat Author ed? Result Component HEMOGLOBIN A1C < 7.0 6.7 (10/21/2010 11:50 AM No ALEXSANDER Garduno) KILEY Mcintosh as of this encounter Procedures Procedure Name Priority Date/Time Associated Diagnosis Comments PROTEIN/CR RATIO,UR RAN Routine 08/21/2018 Liver replaced by Results for this 11:33 AM CDT transplant (HCC) procedure are in the results section. IRON + BINDING CAPACITY + Add on 08/21/2018 Anemia Results for this %SAT+ FERRITIN 11:04 AM CDT procedure are in the results section. GGTP Routine 08/21/2018 Liver replaced by Results for this 11:04 AM CDT transplant (HCC) procedure are in the results section. TACROLIMUS LEVEL(FK506) Routine 08/21/2018 Liver replaced by Results for this 11:04 AM CDT transplant (HCC) procedure are in the results section. 25-OH VITAMIN D (D2 + D3) Routine 08/21/2018 Disorder of bone density Results for this 11:04 AM CDT and structure, procedure are in the unspecified results section. Liver replaced by transplant (HCC) CBC AND DIFF Routine 08/21/2018 Liver replaced by Results for this 11:04 AM CDT transplant (HCC) procedure are in the results section. TRANSFERRIN Add on 08/21/2018 Anemia Results for this 11:04 AM CDT procedure are in the results section. PHOSPHORUS Routine 08/21/2018 Liver replaced by Results for this 11:04 AM CDT transplant (HCC) procedure are in the results section. MAGNESIUM Routine 08/21/2018 Liver replaced by Results for this 11:04 AM CDT transplant (HCC) procedure are in the results section. LIPID PROFILE Routine 08/21/2018 Liver replaced by Results for this 11:04 AM CDT transplant (HCC) procedure are in the results section. COMPREHENSIVE METABOLIC Routine 08/21/2018 Liver replaced by Results for this PANEL 11:04 AM CDT transplant (HCC) procedure are in the results section. in this encounter Results * PROTEIN/CR RATIO,UR RAN (08/21/2018 11:33 AM) Protein, Random 11 MG/DL [facility] Creatinine, Random 34 MG/DL [facility] Protein/CR ratio 0.3 [facility] Specimen Urine - Urine Performing Organization Address [facility] Phone Number [facility] [address] [place] [address] * TRANSFERRIN (08/21/2018 11:04 AM) Transferrin 291 185 - 336 MG/DL [facility] Performing Organization Address [facility] Phone Number [facility] [address] [place] [address] * IRON + BINDING CAPACITY + %SAT+ FERRITIN (08/21/2018 11:04 AM) Iron 40 (L) 50 - 185 MCG/DL [facility] Iron Binding-TIBC 434 (H) 270 - 380 MCG/DL [facility] % Saturation 9 (L) 28 - 42 % [facility] Ferritin 19 (L) 30 - 300 NG/ML [facility] Performing Organization Address [facility] Phone Number [facility] [address] [place] [address] * 25-OH VITAMIN D (D2 + D3) (08/21/2018 11:04 AM) Vitamin D(25-OH)Total 21.6 (L) 30 - 80 NG/ML [facility] Specimen Blood Performing Organization Address [facility] Phone Number [facility] [address] [place] [address] * LIPID PROFILE (08/21/2018 11:04 AM) Cholesterol 153 <200 MG/DL [facility] Triglycerides 160 (H) <150 MG/DL [facility] HDL 26 (L) >40 MG/DL [facility] LDL 106 (H) <100 MG/DL [facility] VLDL 32 MG/DL [facility] Non HDL Cholesterol 127 MG/DL [facility] Comment: Calculated non-HDL Cholesterol (non-HDL-C) indirectly measures LDL-C, Lp(a), IDL-C, and VLDL-C.It is a surrogate marker for Apoprotein B.Goal should be less than 130 mg/dL. Specimen Blood Performing Organization Address [facility] Phone Number [facility] [address] [place] [phone] * TACROLIMUS LEVEL(FK506) (08/21/2018 11:04 AM) Tacrolimus 6.2 2 - 15 NG/ML [facility] Comment: Target concentrations vary by type of transplant, patient response, concomitant immunosuppression and post-transplant time interval.Test was performed on whole blood using [employer] QMS reagent and a Kristy Erik AU analyzer. Specimen Blood Performing Organization Address [facility] Phone Number [facility] [address] [phone] * GGTP (08/21/2018 11:04 AM) GGTP 27 9 - 64 U/L [facility] Specimen Blood Performing Organization Address [facility] Phone Number [facility] [address] [place] [address] * PHOSPHORUS (08/21/2018 11:04 AM) Phosphorus 3.1Comment: NOTE NEW REFERENCE 2.0 - 4.5 MG/DL [facility] RANGES Specimen Blood Performing Organization Address [facility] Phone Number [facility] [address] [place] [address] * MAGNESIUM (08/21/2018 11:04 AM) Magnesium 1.6 1.6 - 2.6 mg/dL [facility] Specimen Blood Performing Organization Address [facility] Phone Number [facility] [address] [place] [address] * CBC AND DIFF (08/21/2018 11:04 AM) White Blood Cells 7.1 4.5 - 11.0 [facility] RBC 4.93 4.4 - 5.5 [...] MAIN LAB Specimen Blood Performing Organization Address City/State/Zipcode Phone Number [facility] [address] [place] [address] * COMPREHENSIVE METABOLIC PANEL (08/21/2018 11:04 AM) [...] Blood Performing Organization Address City/State/Zipcode Phone Number [facility] [address] [place] [address] in this encounter Visit Diagnoses Diagnosis 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
--- OUTSIDE RECORDS SUMMARY | 2018-08-31 08:34 | XMS REPORT | Encounter Summary ---
Author Author [facility] Organization [facility] Address Unknown Phone Unavailable Care Team Providers Care Window Machine Operator Name Role Phone Jamie Sanders MD PCP [...] Unavailable Reason for Visit * Reason Comments Liver Recipient Follow-up Encounter Details Date Type Department Care Team Description 08/21/2018 Office Visit Center Valdemar Jackson MD Anemia, unspecified type Transplantation-Liver [address] (Primary Dx); Transplant Hep [id number] Status post liver [facility] [address] [place] [address] transplant (HCC) [address] [phone] [place] [address] [phone] Social History Tobacco Use Types Packs/Day Years Used Date Former Smoker Cigarettes 1 40 Smokeless Tobacco: Never Used Comments: quit in 1999 Alcohol Use Drinks/Week oz/Week Comments No Sex Assigned at Date Recorded Not on file as of this encounter Last Filed Vital Signs Vital Sign Reading [...] Mass Index 31.87 08/21/2018 12:28 PM CDT in this encounter Functional Status Functional Status Response [...] impairment: No 08/21/2018 as of this encounter Instructions * Patient Instructions - Chiki Keller, NEMO - 08/21/2018 11:00 AM CDT Follow up to schedule: -RTC with Dr. Phillips in 6 months -Flu shot today Today you saw Dr. Phillips in clinic and discussed the following: Patient instructions -Your liver labs look good! -You do need a colonoscopy after we get records from cardiology -Start taking lipitor 10mg daily for your elevated cholesterol. -Follow up with your PCP about your CPAP machine functioning properly. -We will add iron studies to the labs you had drawn today to see if you need an iron infusion. -Follow up with dermatology for a skin check MA, please request records from Dr. Cuba Li cardiology in [place] in this encounter Progress Notes * Valdemar Phillips MD - 08/21/2018 11:00 AM CDT Formatting of this note may be different from the original. Date of Service: 08/21/2018 Cuco Chong is a 73 y.o. male Subjective: History of Present Illness Mr. Chong is a pleasant 72-year-old gentleman, who is accompanied by his today. 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 He was last seen in clinic for follow-up by Dr. Phillips in 05/2017. He was also seen in the hospital 02/2018 when he presented with septic sepsis from pneumonia. He has a high burden of comorbidity. Namely, he has congestive heart failure with ejection fraction 30% as last measured in February, coronary artery disease status post bypass surgery, atrial fibrillation on anticoagulation with warfarin , chronic kidney disease stage III, obstructive sleep apnea without use of CPAP , severe osteoarthritis, gouty arthritis He has been doing fairly well since he was hospitalized in February with pneumonia. And management of heart failure. He has had several syncopal episodes over the last 6-8 months with most recent one being 3 weeks ago. He was following with a porter luggage named Dr. Li who reportedly has performed an echocardiogram, carotid Doppler ultrasound, and Holter monitor. The results of the latter two are pending and Mr. Chong and his are under the impression that his echocardiogram was "normal." However he did have an abnormal echocardiogram with reduced ejection fraction when hospitalized here just 6 months ago. He has 3 pillow orthopnea and is not using his CPAP mask due to a poor fit. He sleeps half the evening and recliner and has lower extremity edema up into his knees which is asymmetric, L>R, due to saphenous vein harvesting for his bypass surgery. He is taking furosemide 120 mg daily as well as spironolactone daily (dose unknown). He is still taking warfarin for atrial fibrillation. He has remained on tacrolimus 1 mg twice daily after recent reductions in his dose. He also remains on CellCept 500 mg twice daily. Finally, we prescribe him ursodiol 250mg BID. He continues to take insulin for his diabetes and reports fasting blood sugars are in the 140s but does not know his most recent hemoglobin A1c. He is frustrated with the [place] hospital system because they have discontinued some of his opioid narcotics due to the "opioid epidemic" in the current regimen he is being prescribed is not as effective for his chronic knee and back pain related to advanced osteoarthritis. He has not seen a vehicle operator for annual skin exam but does have a lesion on his left ear which is primary care doctor, Dr. Sanders, is planning on excising. Denies chest pain, shortness of breath, nausea, vomiting. He otherwise had no other new complaints or symptoms to report. He lives in [place], [place] with his . Review of Systems Review of systems as above and per History of Present Illness; otherwise negative for 10 of 14 systems reviewed. Objective: allopurinol (ZYLOPRIM) 100 mg tablet Take 100 mg by mouth daily. aspirin 81 mg chewable tablet Chew 1 tablet by mouth daily. Take with food. blood sugar diagnostic (GLUCOSE METER TEST STRIP) test strip Use 1 Strip as directed three times daily. accuchek wild Blood-Glucose Meter kit Accuchek WILD METER Cholecalciferol (Vitamin D3) 1,000 unit PO Cap Take 1 Cap by mouth Twice Daily. cyanocobalamin(DIL) (VITAMIN B-12) 100 mcg/mL Inject into the muscle every 30 days. Not had for 8 months Docusate Calcium 50 mg cap Take 100 mg by mouth at bedtime daily. furosemide (LASIX) 20 mg tablet Take 3 tablets by mouth every morning. After having your labs checked, your doctors may increase your dose back to 120 mg by mouth once daily HYDROcodone/acetaminophen (NORCO) 5/325 mg tablet Take 2 tablets by mouth three times daily insulin aspart (NOVOLOG) 100 unit/mL flexPEN Inject 9 units with breakfast, 9 units with lunch, and 11 units with dinner. Plus 2 for every 40 >140 Max 80. (Patient taking differently: Inject 9 units + scale tidac) insulin detemir(+) (LEVEMIR FLEXPEN) 100 unit/mL (3 mL) injection pen 34 U am and 16 U pm plus 2 units to prime pen each time. (Patient taking differently : 36 U am and 18 U pm plus 2 units to prime pen each time. A of 03/04 he has been out for four days) lisinopril (PRINIVIL; ZESTRIL) 5 mg tablet Take 1 tablet by mouth daily. metoprolol XL (TOPROL XL) 50 mg extended release tablet Take 1 tablet by mouth daily. metoprolol XL (TOPROL XL) 50 mg extended release tablet Take 1 tablet by mouth daily. mycophenolate mofetil (CELLCEPT) 250 mg PO capsule Take 2 Caps by mouth Twice Daily. omeprazole DR(+) (PRILOSEC) 20 mg PO capsule Take 40 mg by mouth daily. other medication 1 Dose. CHAZ COMFORT get for feet. oxyCODone (ROXICODONE) 5 mg tablet Take 5 mg by mouth every 6 hours as needed oxyCODONE (ROXICODONE, OXY-IR) 5 mg tablet Take 1 tablet by mouth daily for pain. pregabalin (LYRICA) 150 mg capsule Take 150 mg by mouth twice daily. rOPINIRole (REQUIP) 1 mg tablet Take 1 mg by mouth twice daily. senna/docusate (SENOKOT-S) 8.6/50 mg tablet Take 1 tablet by mouth daily. tacrolimus (PROGRAF) 1 mg capsule Take 1 capsule by mouth twice daily. temazepam (RESTORIL) 15 mg capsule Take 15 mg by mouth at bedtime as needed. ursodiol (RANJIT) 250 mg tablet Take 1 tablet by mouth twice daily with meals. warfarin (COUMADIN) 2.5 mg tablet Take 1 tablet by mouth as directed. Take 2.5 mg by mouth two times weekly on Tuesday & Tuesday. Take in the evening. warfarin (COUMADIN) 5 mg tablet Take 1 tablet by mouth as directed. Take 5 mg by mouth five times weekly on Tuesday, Tuesday, Tuesday, , Tuesday. Take in the evening. There were no vitals filed for this visit. There is no height or weight on file to calculate BMI. Physical Exam Constitutional: He is oriented to person, place, and time. He appears well- developed and well-nourished. No distress. Overweight, pale white male. HENT: Head: Normocephalic and atraumatic. Mouth/Throat: Oropharynx is clear and moist. Eyes: Conjunctivae and EOM are normal. No scleral icterus. Neck: Normal range of motion. No tracheal deviation present. Cardiovascular: Normal rate and intact distal pulses. No murmur heard. Irregularly, irregular rhythm. Pulmonary/Chest: Effort normal. No respiratory distress. Abdominal: Soft. He exhibits no distension. There is no tenderness. Musculoskeletal: Normal range of motion. He exhibits deformity (Heberden nodes bilaterally, PIP and DIP swelling without synovitis. ). He exhibits no edema. Lymphadenopathy: He has no cervical adenopathy. Neurological: He is alert and oriented to person, place, and time. Skin: Skin is warm and dry. Rash (1x1cm erythematous, scaly rash on L ear lobe ( planned for excision)) noted. Senile purpura Psychiatric: He has a normal mood and affect. His behavior is normal. Results for CUCO CHONG ( ) Ref. Range 05/18/2018 11:00 Hemoglobin Latest Ref Range: 14.0 - 17.0 12.1 (A) Hematocrit Unknown 39.7 Platelet Count Latest Ref Range: 150 - 400 K/ul 166 White Blood Cells Latest Ref Range: 5.00 - 10.00 K/ul 5.68 Neutrophils Latest Ref Range: 37 - 80 % 67.2 Absolute Neutrophil Count Latest Ref Range: 2.00 - 6.90 3.82 Absolute Lymph Count Latest Units: K/uL 1.11 Absolute Monocyte Count Latest Ref Range: 0.0 - 0.9 0.6 Absolute Eosinophil Count Latest Ref Range: 0.0 - 0.7 K/uL 0.2 Absolute Basophil Count Latest Ref Range: 0.0 - 0.2 0.0 Lymphocytes Latest Ref Range: 10 - 50 % 19.5 Monocytes Latest Ref Range: 0 - 12 % 9.9 Basophils Latest Ref Range: 0.0 - 2.5 % 0.4 RBC Latest Ref Range: 4.20 - 5.40 M/ul 4.88 MCV Latest Ref Range: 80 - 97 fl 81.4 MCH Latest Ref Range: 27 - 31 pg 24.8 Sodium Latest Ref Range: 132 - 145 mEq/L 135 Potassium Latest Ref Range: 3.5 - 5.5 mEq/L 4.3 Chloride Latest Ref Range: 95 - 110 94 (A) CO2 Latest Ref Range: 24.0 - 34 mEq/L 32.0 (L) Anion Gap Latest Ref Range: 6 - 14 13 Blood Urea Nitrogen Latest Ref Range: 9 - 27 28 (A) Creatinine Latest Ref Range: 0.6 - 1.5 mg/dL 2.1 eGFR Non Latest Ref Range: >59 ml/min/1.73m squared 34 Glucose Latest Ref Range: 60 - 125 mg/dL 189 Albumin Latest Ref Range: 3.5 - 4.8 g/dL 4.0 Calcium Latest Ref Range: 8.5 - 10.8 mg/dL 8.9 Magnesium Unknown 1.7 Total Bilirubin Latest Ref Range: 0.1 - 1.4 mg/dL 1.0 Phosphorus Unknown 3.9 AST (SGOT) Latest Ref Range: 0 - 40 U/L 7 ALT (SGPT) Latest Ref Range: 9 - 29 U/L 4 GGTP Latest Ref Range: 0 - 65 U/L 27 Alk Phosphatase Latest Ref Range: 30 - 115 U/L 86 Tacrolimus Latest Ref Range: 5.0 - 15.0 mg/dL 5.8 Results for orders placed during the hospital encounter of 02/17/18 US ABDOMEN COMPLETE Narrative PROCEDURES: US ABDOMEN COMPLETE HISTORY: Prior orthotopic liver transplant and cholangitis with elevated bilirubin and sepsis. TECHNIQUE: Grayscale ultrasound of the upper abdomen was performed. COMPARISON: Abdominal ultrasound 05/23/2017, CT 01/23/2011. FINDINGS: MEASUREMENTS: Liver length: 16.6 cm Common duct diameter: 0.5 cm Spleen length: 17.4 cm LIVER: The transplant liver is normal in size. The echotexture is smooth. There is no intrahepatic mass or biliary ductal dilatation. There is hepatopedal flow in the main portal vein. GALLBLADDER: The gallbladder is surgically absent. There is no biliary ductal dilatation. ABDOMINAL AORTA AND IVC: Portions of the superior IVC and abdominal aorta are visualized. PANCREAS:The pancreas is poorly seen and cannot be evaluated. SPLEEN: The spleen is moderately enlarged. KIDNEYS: The right kidney is not visualized. The left kidney is normal in size without hydronephrosis.. The bladder is decompressed around a Malin catheter. OTHER: There is small volume ascites. There are small bilateral pleural effusions. Impression 1. Prior liver transplant. There is no intrahepatic mass. 2. Sequelae of portal hypertension, including splenomegaly and small volume ascites. 3. Small bilateral pleural effusions. 4. Poor visualization of the right kidney and pancreas. Finalized by Jessie Marino M.D. on 02/18/2018 11:19 AM. Dictated by Jessie Marino M.D. on 02/18/2018 11:15 AM. Echo 02/18/18 Interpretation Summary Mildly dilated LV cavity with mild LVH. Moderately reduced systolic function ; LVEF 30%. Moderate mitral annular calcification without stenosis or significant regurgitation. Calcific aortic valve with restricted motion. Mild stenosis by doppler assessment. Aortic valve mean gradient=12 mmHg. Aortic valve peak gradient=23 mmHg Aortic valve peak velocity=: 2.2 m/s Assessment and Plan: Impression: Mr. Chong is a pleasant 72-year-old gentleman, who is accompanied by his today. 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 He was last seen in clinic for follow-up by Dr. Phillips in 05/2017. He was also seen in the hospital 02/2018 when he presented with septic sepsis from pneumonia. Assessment and plan: 1. Status post orthotopic liver transplant 11/2010 for presumed PRADO, cryptogenic cirrhosis. Overall, the patient's liver graft function has remained stable. His AST and ALT remain normal. 2. Immunosuppression management. The patient has remained on dual immunosuppression with tacrolimus at 1 mg twice daily and CellCept 500 mg twice daily. Long-term risk of immunosuppression has been discussed and reviewed. We would recommend monitoring his trough values. His target Prograf level is 3- 5 and preferred to run closer to 3 if possible in the setting of chronic kidney disease. Await trough level from today. 3. History of ischemic bilioapathy. His last ERCP was performed in September 2012. He has clinically done well. He remains on Ursodiol therapy. No further reports of fever or cholangitis symptoms. 4. Heart failure with reduced ejection fraction. Presumed due to ischemic cardiomyopathy, status post CABG. Transthoracic echocardiogram 02/2018 with ejection fraction of 30%. He currently has 3 pillow orthopnea but no dyspnea on exertion or chest pain. He is taking Lasix 120 mg daily as well as spironolactone and follows with a porter luggage, Dr. Li. Weight today is 235 pounds which is down from 252 pounds. 5. Microcytic anemia. Hemoglobin is 12.2 today with MCV 78. Previous iron studies are most consistent with iron deficiency anemia. Plan to check iron studies today and plan for IV supplementation if he is deficient given his restless leg symptoms. Endoscopy is indicated at this time but these would be high risk procedures in the setting of ongoing syncopal episodes and decompensated congestive heart failure so we will defer this until these issues are stabilized. 6. Atrial fibrillation. On warfarin for anticoagulation. 7. Syncope. Several episodes of syncope since his hospital discharge in February. Evaluation by his porter luggage has included Doppler ultrasound, TTE and Holter monitor; results are still pending. 8. 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 He is taking long-acting and prandial insulin with fasting sugars in the 140s. Hemoglobin A1c is an unknown. He is following with Dr. Sanders, primary care. 9. Chronic kidney disease, stage III. The patient has seen Dr. Justina Rueda in the past. Creatinine is stable on labs today and we will proceed with routine checks. 10. Osteoarthritis. Predominantly knee and back pain. He saw local orthopedist for evaluation for surgical repair but deemed to be high risk due to his comorbidities. 11. Bone health. He has a history of osteopenia. His last bone densitometry was in June 2016. He should continue with calcium and vitamin D supplementation. Defer DEXA at this time due to cardiac morbidity. 12. Dyslipidemia. The patient has a history of dyslipidemia, LDL today is 106. He is reportedly not taking a statin (possible past history of intolerance from myalgias) so we will initiate atorvastatin 10 mg daily. 13. EVERARDO. Non-compliant with CPAP due to improper fit. He has attempted to address this with a sleep clinic. 14. Skin cancer screening. He does report history of a previous skin cancer removal. He follows with his primary care doctor for this issue but we have recommended that he be screened by a vehicle operator. 15. Colon cancer screening. His last colonoscopy was in 2011, with polyp removal. Despite iron deficiency anemia and need for surveillance colonoscopy, he still has some unresolved cardiac issues: Namely the congestive heart failure and syncopal episodes. If these are resolved, we will plan on endoscopy but risk of the procedure precludes benefit at this point. 16. Vaccination status. Will administer influenza vaccine today. 17. Follow up. We will plan to see the patient back in 12 months time or sooner. We have asked the patient to call or contact us at [phone] if I may be of further assistance in his care. The patient understands to call or contact us with any changes in status. Thank you very much for allowing me to participate in care of this very kind and interesting patient. Please do not hesitate to call or contact me at [phone] if I may be of further assistance in this patient's care. Manoj Braga MD GI/Hepatology Fellow [phone] ATTESTATION I personally performed the slaughter portions of the E/M visit, discussed case with resident and concur with resident documentation of history, physical exam, assessment, and treatment plan unless otherwise noted. I saw and examined the patient today with Dr. Ariel Braga. Mr. Cuco Chong is a pleasant 73-year-old gentleman, who is accompanied by his today. 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 He has had comorbidities including history of diabetes, congestive heart failure with EF of 30% in February 2018, history of CABG with previous bypass surgery, history of atrial fibrillation, on chronic anticoagulation with warfarin and chronic kidney disease, history of obstructive sleep apnea and severe arthritis. He presents today in followup. He was last seen in our clinic on May 23, 2017. In the interim, he did have an acute hospitalization at [facility] in February 2018, with respiratory failure. The patient reports he traces this back possibly using affected CPAP. He reports there was concern for the cleanliness of the equipment and then day after using, he became acutely ill. He subsequently is no longer using the CPAP as he reports he sleeps better in a chair without it. He has had local followup with his porter luggage. He has had recent concerns for falling over and passing out, which has been ongoing on for the past six to eight months. He reports that he underwent echocardiogram locally, which he was told it was unremarkable. He also reports having event monitor and plans to undergo a carotid Doppler. He reports there was discussion regarding possible future pacemaker placement. He has also had concerns for ascites. He had a paracentesis performed at [facility] earlier in June of 2017, and he reports having a previous paracentesis locally at [facility]. He reports that he has had ongoing difficulties with restless legs syndrome. He has been on chronic ursodiol for history of ischemic biliopathy. Posttransplant, he is on chronic immunosuppression tacrolimus 1 mg twice daily and CellCept 500 mg twice daily. He has had chronic lower extremity edema, which has worsened left greater than right leg where his graft harvest had previously occurred. He is on 120 mg of Lasix daily. He reports his last syncopal event was approximately two to three weeks ago. He has reported having a skin check through his primary care physician. He has had cryoablation of the lesion on his left ear. He otherwise had no other new symptoms or complaints to report. On exam, his chest was notable for diminished breath sounds at the bases bilaterally with few scattered crackles. His heart examination was irregularly irregular. His abdomen was soft, nontender, and nondistended with positive bowel sounds. His transplant incision was intact. No focal areas of tenderness , rebound, or guarding present. No overt ascites on examination today. There is concern for mild splenomegaly. Left lower extremity edema is present, minimal on right lower extremity. Labs and imaging reviewed. Labs from today, August 21, 2018, with a white blood cell count of 7.1, hemoglobin of 12.2, platelet count of 177. Previous INR was 2.7 on February 20, 2018. Sodium level 136, creatinine 2.12, bilirubin 1.5 , AST 7, ALT less than 3, alkaline phosphatase 89, GGTP was 27. Tacrolimus level 6.2. His LDL was 106. Vitamin D level was 21.6. The patient underwent an ultrasound on February 17, 2018, with prior liver transplant. No intrahepatic mass, sequela of portal hypertension with splenomegaly, small volume ascites, small bilateral pleural effusions, poor visualization of the right kidney and pancreas. He had an echocardiogram on February 18, 2018, showing there to be an EF of 30% with mildly dilated LV cavity with mild LVH. Moderate mitral annular calcification without stenosis or significant regurgitation. The calcific aortic valve with restriction motion with mild stenosis by Doppler assessment. Aortic valve mean gradient was 12, aortic valve peak gradient was 23 with peak velocity of 2.2 m/sec. Fluid analysis from June show that his fluid albumin level is 3.0 with a total protein level of 4.4. Recent albumin at that time was 4.1 on July 04, 2017. I had a detailed discussion review with Mr. Chong and his today. He has had previous liver transplant in 2010, for cryptogenic cirrhosis/PRADO. He has had multiple components of the metabolic syndrome. He has had recent concerns for cardiac dysfunction with atrial fibrillation and echocardiogram showing reduced EF. He has had development of ascites, which would suggest cardiac etiology with serum albumin, albumin gradient 1.1 with a total protein level 4.4. His last echocardiogram suggest reduced ejection fraction. He has had recent concerns for syncopal event. He reports he has had recent Cardiology and Neurology assessments and his workup is ongoing. We had a long discussion today regarding the status of his liver transplant graft. He last had a liver biopsy on June 15, 2017, which was essentially unremarkable, but did have mild fibrous expansion of portal tracts with occasional septae stage 1/4. His LFTs are currently stable. He is on dual immunosuppression with tacrolimus and CellCept. His target tacrolimus level is 3-5 and his level remains mildly elevated. Therefore, we would recommend a reduction to 0.5 mg twice daily with close monitoring. There have been no overt features of cirrhosis on his previous biopsy. He has had recent cardiac concerns and follows with his local physicians. We would like to request his outside records for his previous workup to update his status. We strongly encouraged him to follow up with his porter luggage for ongoing workup and evaluation due to concerns for underlying cardiac disease. The patient has had concerns for mild iron deficiency anemia. He denies overt blood loss. He is on chronic warfarin therapy. Ideally, we would recommend EGD and colonoscopy, but with his cardiac concerns this needs to be explored first. We will check followup iron levels today and if low, we would recommend IV iron replacement. His LDL appears to be above target. Given his risk factors, I recommend starting Lipitor 10 mg daily. We need to continue monitor his protein to creatinine ratio. We have recommended a Dermatology skin check every year due to risk for skin malignancy. The patient is currently not wearing his CPAP and encouraged him to follow up with his local physicians for other alternative options for therapy. He will need to continue lab monitoring per protocol. We did discuss discontinuation of his ursodiol today, however, the patient was hesitant to do so. We have recommended he undergo a flu shot given his risk factors. We will plan to see the patient back in six months' time or sooner. We have asked the patient to call or notify us if there are any further changes or updates to his clinical condition. Thank you very much for allowing me to participate in the care of this very kind and interesting patient. Please do not hesitate to call or contact me at [phone] if I may be of further assistance in his care. Valdemar Phillips MD (DOC:[id number]) Staff name: Valdemar Phillips MD Date: 08/21/2018 in this encounter Plan of Treatment Not on fileas of this encounter Goals Patient Goal Type Goal Recent Progress Patient-Stat Author ed? Result Component HEMOGLOBIN A1C < 7.0 6.7 (10/21/2010 11:50 AM No ALEXSANDER Garduno) KILEY Mcintosh as of this encounter Visit Diagnoses Diagnosis Anemia, unspecified type - Primary Status post liver transplant (HCC) Liver replaced by transplant
--- OUTSIDE RECORDS SUMMARY | 2018-08-31 08:34 | XMS REPORT | Encounter Summary ---
Author Author [facility] Organization [facility] Address Unknown Phone Unavailable Care Team Providers Care Flight Surveyor Name Role Phone Jamie Sanders MD PCP [...] Callaway Unavailable Unavailable Roya Gottlieb Unavailable Unavailable Long, Batsheva AGUIRRE Unavailable Unavailable Carlotta De La Torre Unavailable Unavailable Justine Marquez Unavailable Unavailable Saad Godinez MD Unavailable Yeyo Roberson MD Unavailable Reason for Visit * Reason Comments Labs Only Encounter Details Date Type Department Care Team Description 08/16/2018 Telephone Center for Mattie Callaway BSN Labs Only Transplantation-Liver Transplant [facility] [address] [place] [address] Social History Tobacco Use Types Packs/Day Years Used Date Former Smoker Cigarettes 1 40 Smokeless Tobacco: Never Used Comments: quit in 1999 Alcohol Use Drinks/Week oz/Week Comments No Sex Assigned at Date Recorded Not on file as of this encounter Functional Status Functional Status Response Date of Assessment Does the patient have a hearing impairment: No 02/19/2018 Does the patient have a visual impairment: [...] Telephone Encounter - Mattie Callaway BSN - 08/16/2018 3:11 PM CDT Spoke with pt's and instructed her to have pt get labs on Tuesday prior to appt. She v/u. She states that pt has yet to get a colonscopy in this encounter Plan of Treatment Not on fileas of this encounter Goals Patient Goal Type Goal Recent Progress Patient-Stat Author ed? Result Component HEMOGLOBIN A1C < 7.0 6.7 (10/21/2010 11:50 AM No ALEXSANDER Garduno) KILEY Mcintosh as of this encounter Results * PROTEIN/CR RATIO,UR RAN (08/21/2018 11:33 AM) Protein, Random 11 MG/DL [facility] Creatinine, Random 34 MG/DL [facility] Protein/CR ratio 0.3 [facility] Specimen Urine - Urine Performing Organization Address City/[facility] Phone Number [facility] [address] [place] [address] * 25-OH VITAMIN D (D2 + D3) (08/21/2018 11:04 AM) Vitamin D(25-OH)Total 21.6 (L) 30 - 80 NG/ML [facility] Specimen Blood Performing Organization Address [facility] Phone Number [facility] [address] [place] [address] * LIPID PROFILE (08/21/2018 11:04 AM) Cholesterol [...] 130 mg/dL. Specimen Blood Performing Organization Address [facility] Phone Number [facility] [address] [place] [address] * TACROLIMUS LEVEL([id number]) (08/21/2018 11:04 AM) Tacrolimus 6.2 2 - 15 NG/ML [facility] Comment: Target concentrations vary by type of transplant, patient response, concomitant immunosuppression and post-transplant time interval.Test was performed on whole blood using [employer] QMS reagent and a Kristy Comstock AU analyzer. Specimen Blood Performing Organization Address [facility] Phone Number [facility] [address] [place] [address] * GGTP (08/21/2018 11:04 AM) GGTP 27 9 - 64 U/L [facility] Specimen Blood Performing Organization Address [facility] Phone Number [facility] [address] [place] [address] * PHOSPHORUS (08/21/2018 11:04 AM) Phosphorus 3.1Comment: NOTE NEW REFERENCE 2.0 - 4.5 MG/DL [facility] RANGES Specimen Blood Performing Organization Address [facility] Phone Number [facility] [address] [place] [address] * MAGNESIUM (08/21/2018 11:04 AM) Magnesium 1.6 1.6 - 2.6 mg/dL [facility] Specimen Blood Performing Organization Address [facility] Phone Number [facility] [address] [place] [address] * CBC AND DIFF (08/21/2018 11:04 AM) [...] MAIN LAB Specimen Blood Performing Organization Address [facility] Phone Number [facility] [address] [place] [address] * COMPREHENSIVE METABOLIC PANEL (08/21/2018 11:04 AM) [...] Blood Performing Organization Address City/State/Zipcode Phone Number MAIN LAB [address] [place] [address] in this encounter Visit Diagnoses Diagnosis Liver replaced by transplant (HCC) - Primary Liver replaced by transplant Disorder of bone density and structure, unspecified
--- NOTE | 2018-08-31 08:38 | Diagnostic Imaging Report ---
INDICATION: Shortness of breath, hemoptysis. Portable chest 8:28 a.m. FINDINGS: There are postop changes from CABG surgery. There is cardiomegaly. Pulmonary vascularity is upper limits of normal. There are no infiltrates, effusions or pneumothoraces. IMPRESSION: Cardiomegaly with mild pulmonary venous congestion. Dictated by: Dictated on workstation # [id number]
[2018-08-31 08:41] LABS: BASOPHILS % (AUTO) 0 % (0-10); EOSINOPHILS % (AUTO) 1 % (0-10); HEMATOCRIT 42 % (40-54); HEMOGLOBIN 13.1 G/DL (13.3-17.7); LYMPHOCYTES # (AUTO) 0.4 X 10^3 (1.0-4.0); LYMPHOCYTES % (AUTO) 7 % (12-44); MEAN CORPUSCULAR HEMOGLOBIN 24 PG (25-34); MEAN CORPUSCULAR HGB CONC 31 G/DL (32-36); MEAN CORPUSCULAR VOLUME 78 FL (80-99); MEAN PLATELET VOLUME 9.5 FL (7.4-10.4); MONOCYTES # (AUTO) 0.2 X 10^3 (0.0-1.0); MONOCYTES % (AUTO) 4 % (0-12); NEUTROPHILS # (AUTO) 4.8 X 10^3 (1.8-7.8); NEUTROPHILS % (AUTO) 88 % (42-75); PLATELET COUNT 201 10^3/uL (130-400); RED BLOOD COUNT 5.39 10^6/uL (4.35-5.85); RED CELL DISTRIBUTION WIDTH 17.8 % (10.0-14.5); WHITE BLOOD COUNT 5.5 10^3/uL (4.3-11.0)
[2018-08-31 08:49] LABS: INR 3.6 (0.8-1.4); PROTHROMBIN TIME PATIENT 36.5 SEC (12.2-14.7)
--- NOTE | 2018-08-31 08:58 | ED General ---
General Chief Complaint: Respiratory Problems Stated Complaint: COUGHING BLOOD Nursing Triage Note: PT BEGAN COUGHING UP BRIGHT RED BLOOD AROUND 0330 THIS AM. PT SPOUSE STATES HE WAS FINE YESTERDAY. PT PRESENTS TO THE ED FEBRILE WOTH INCREASED WOB. STATES PT HAS A HX OF PNUEMONIA. Nursing Sepsis Screen: Possible Severe Sepsis Risk Source of Information: Patient Exam Limitations: No Limitations History of Present Illness Date Seen by Provider: Aug 31, 2018 Time Seen by Provider: 08:09 Initial Comments Patient presents to the emergency room in respiratory failure with hypoxia. states oxygen saturation at home was 76 percent by finger pulse ox. Patient woke coughing as 03:30. His coughing progress to hemoptysis. Patient takes warfarin for atrial fibrillation. He is also on indomethacin for gout. Patient has numerous health problems including atrial fibrillation, coronary artery disease, insulin-dependent diabetes, and immunosuppression due to previous liver transplant. He has had febrile on assessment and extremely tachycardic in atrial fibrillation with RVR. states patient seemed confused at home. Mentation is dull, but he appears alert and oriented, able to answer questions appropriately in the ER. Patient's primary care providers Dr. Sanders. 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 Allergies and Home Medications Allergies Coded Allergies: meperidine (Verified Allergy, Unknown, 06/26/14) morphine (Verified Allergy, Unknown, 06/26/14) Home Medications Allopurinol 100 Mg Tablet, 100 MG PO HS, (Reported) Diltiazem HCl 240 Mg Cap.er.24h, 240 MG PO DAILY Prescribed by: BLANCA TABARES on 08/15/16 1054 Furosemide 20 Mg Tablet, 40 MG PO BID, (Reported) Hydrocodone/Acetaminophen 1 Each Tablet, 2 TAB PO TID, (Reported) Insulin Aspart 100 Unit/1 Ml Susp, 9 UNIT SQ AC, (Reported) Insulin Aspart 300 Units/3 Ml Solution, 9 UNITS SQ AC, (Reported) Insulin Detemir 100 Unit/1 Ml Insuln.pen, 36 UNIT SQ BEFORE BREAKFAST, (Reported ) Insulin Detemir 100 Unit/1 Ml Insuln.pen, 18 UNIT SQ HS, (Reported) Mycophenolate Mofetil 250 Mg Capsule, 500 MG PO BID, (Reported) Omeprazole Magnesium 20 Mg Tablet.dr, 40 MG PO DAILY, (Reported) Oxycodone HCl 5 Mg Tablet, 10 MG PO Q8H PRN for PAIN, (Reported) Pregabalin 100 Mg Capsule, 100 MG PO BID, (Reported) Sennosides/Docusate Sodium 1 Each Tablet, 1 TAB PO HS, (Reported) Tacrolimus 1 Mg Capsule, 1 MG PO DAILY, (Reported) Tacrolimus 1 Mg Capsule, 2 MG PO HS, (Reported) Temazepam 15 Mg Capsule, 15 MG PO HS PRN for SLEEP, (Reported) Ursodiol 300 Mg Capsule, 300 MG PO BID, (Reported) Warfarin Sodium 5 Mg Tablet, 5 MG PO ,,SA,CASTRO, (Reported) Warfarin Sodium 7.5 Mg Tablet, 7.5 MG PO M,W,F, (Reported) Patient Home Medication List Home Medication List Reviewed: Yes Review of Systems Review of Systems Constitutional: see HPI EENTM: no symptoms reported Respiratory: see HPI Cardiovascular: see HPI Gastrointestinal: no symptoms reported Genitourinary: no symptoms reported Musculoskeletal: no symptoms reported Skin: no symptoms reported Psychiatric/Neurological: See HPI Hematologic/Lymphatic: No Symptoms Reported Immunological/Allergic: no symptoms reported Past Eccpyuq-Rsftgd-Ogpprp Hx Past Med/Social Hx: Reviewed and Corrections made Patient Social History Recent Foreign Travel: No Contact w/Someone Who Travel: No Recent Infectious Disease Expo: No Recent Hopitalizations: Yes Immunizations Up To Date Tetanus Booster (TDap): Less than 5yrs PED Vaccines UTD: Yes Date of Pneumonia Vaccine: Aug 14, 2014 Date of Influenza Vaccine: Jul 23, 2016 Seasonal Allergies Seasonal Allergies: No Past Medical History Surgeries: Yes Cardiac, CABG, Coronary Stent, Eye Surgery, Liver Transplant, Orthopedic, Rectal , Vasectomy Respiratory: Yes Pneumonia Cardiac: Yes Atrial Fibrillation, Chronic Edema/Swelling, Coronary Artery Disease, High Cholesterol, Hypertension Neurological: Yes Neuropathy Reproductive Disorders: No (VASECTOMY) Gastrointestinal: Yes Liver Disease/Jaundice Musculoskeletal: Yes Chronic Back Pain Endocrine: Yes Diabetes, Insulin dep HEENT: Yes Cataract Loss of Vision: Denies Hearing Impairment: Denies Cancer: No Psychosocial: No Blood Disorders: Yes (immunosuppressed with history of liver transplant) Adverse Reaction/Blood Tranf: No Family Medical History Reviewed Nursing Family Hx Cancer of mouth 19 MOTHER Completed stroke 19 MOTHER G8 BROTHER Myocardial infarction 19 FATHER No Pertinent Family Hx, Heart Disease, Cancer Physical Exam-Suspected Sepsis Physical Exam Vital Signs Vital Signs - First Documented 08/31/18 08:10 Temp 102.1 Pulse 165 Resp 28 B/P (MAP) 126/89 (101) Pulse Ox 97 O2 Delivery OxyMask O2 Flow Rate 10.00 Capillary Refill : Less Than 3 Seconds Blood Pressure Mean: 89 Height, Weight, BMI Height: 6'0" Weight: 234lbs. 2.0oz. 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 Tremoring or shivering with involuntary jerks) Skin: warm/dry (febrile to the touch), pallor Focused Exam Sepsis Stage: Severe Sepsis Possible Source: Unknown Lactate Level 08/31/18 08:25: Lactic Acid Level 1.47 Time of Focused Exam: 09:40 Respiratory: Lungs Clear, Decreased Breath Sounds, Other (On BiPAP) Cardiovascular: No Edema, No Murmur, Normal Peripheral Pulses, Irregularly Irregular Capillary Refill: Less Than 3 Seconds Skin: normal color, warm/dry Lactic Acid Level Laboratory Tests Test 08/31/18 08:25 Lactic Acid Level 1.47 MMOL/L (0.50-2.00) Within 3hrs of presentation: Admin fluids (2 liters initiated by 09:30), Blood cultures prior to ABX's, Focus exam, Lactate level Procedures/Interventions Date of ETT Placement: Feb 17, 2018 Time of ETT Placement: 08 Progress/Results/Core Measures Suspected Sepsis Recent Fever Within 48 Hours: Yes Infection Criteria Present: Suspected New Infection New/Unexplained Altered Menta: Yes Sepsis Screen: Possible Severe Sepsis Risk SIRS Temperature:101.2 Pulse: 167 Respiratory Rate: 19 Laboratory Tests 08/31/18 08:25: White Blood Count 5.5 Blood Pressure 86 /49 Mean: 89 08/31/18 08:25: Lactic Acid Level 1.47 Laboratory Tests 08/31/18 08:25: Creatinine 2.81H, INR Comment 3.6H, Platelet Count 201, Total Bilirubin 1.3H Results/Orders Lab Results Laboratory Tests Test 08/31/18 08:25 08/31/18 09:43 08/31/18 10:17 Range/Units White Blood Count 5.5 4.3-11.0 10^3/uL Red Blood Count 5.39 4.35-5.85 10^6/uL Hemoglobin 13.1 L 13.3-17.7 G/DL Hematocrit 42 40-54 % Mean Corpuscular Volume 78 L 80-99 FL Mean Corpuscular Hemoglobin 24 L 25-34 PG Mean Corpuscular Hemoglobin Concent 31 L 32-36 G/DL Red Cell Distribution Width 17.8 H 10.0-14.5 % Platelet Count 201 130-400 10^3/uL Mean Platelet Volume 9.5 7.4-10.4 FL Neutrophils (%) (Auto) 88 H 42-75 % Lymphocytes (%) (Auto) 7 L 12-44 % Monocytes (%) (Auto) 4 0-12 % Eosinophils (%) (Auto) 1 0-10 % Basophils (%) (Auto) 0 0-10 % Neutrophils # (Auto) 4.8 1.8-7.8 X 10^3 Lymphocytes # (Auto) 0.4 L 1.0-4.0 X 10^3 Monocytes # (Auto) 0.2 0.0-1.0 X 10^3 Eosinophils # (Auto) 0.0 0.0-0.3 10^3/uL Basophils # (Auto) 0.0 0.0-0.1 10^3/uL Neutrophils % (Manual) 58 % Lymphocytes % (Manual) 8 % Monocytes % (Manual) 5 % Eosinophils % (Manual) 2 % Basophils % (Manual) 0 % Band Neutrophils 27 % Anisocytosis SLIGHT Microcytosis SLIGHT Elliptocytes SLIGHT Prothrombin Time 36.5 H 12.2-14.7 SEC INR Comment 3.6 H 0.8-1.4 Activated Partial Thromboplast Time 41 H 24-35 SEC Sodium Level 136 135-145 MMOL/L Potassium Level 4.9 3.6-5.0 MMOL/L Chloride Level 95 L 98-107 MMOL/L Carbon Dioxide Level 27 21-32 MMOL/L Anion Gap 14 5-14 MMOL/L Blood Urea Nitrogen 46 H 7-18 MG/DL Creatinine 2.81 H 0.60-1.30 MG/DL Estimat Glomerular Filtration Rate 22 BUN/Creatinine Ratio 16 Glucose Level 146 H 70-105 MG/DL Glucometer 144 H 164 H 70-110 MG/DL Lactic Acid Level 1.47 0.50-2.00 MMOL/L Calcium Level 9.2 8.5-10.1 MG/DL Corrected Calcium 9.2 8.5-10.1 MG/DL Total Bilirubin 1.3 H 0.1-1.0 MG/DL Aspartate Amino Transf (AST/SGOT) 8 5-34 U/L Alanine Aminotransferase (ALT/SGPT) 7 0-55 U/L Alkaline Phosphatase 101 40-136 U/L C-Reactive Protein High Sensitivity 5.24 H 0.00-0.50 MG/DL B-Type Natriuretic Peptide 299.7 H <100.0 PG/ML Total Protein 6.9 6.4-8.2 GM/DL Albumin 4.0 3.2-4.5 GM/DL Blood Gas Puncture Site L RAD Blood Gas Patient Temperature 100.5 Arterial Blood pH 7.33 *L 7.37-7.43 Arterial Blood Partial Pressure CO2 52 H 35-45 MMHG Arterial Blood Partial Pressure O2 142 H 79-93 MMHG Arterial Blood HCO3 26 23-27 MMOL/L Arterial Blood Total CO2 27.9 21.0-31.0 MMOL/L Arterial Blood Oxygen Saturation 100 94-100 % Arterial Blood Base Excess 1.3 -2.5-2.5 MMOL/L Omi Test YES-POS Blood Gas Ventilator Setting NO Blood Gas Inspired Oxygen 50% Micro Results Microbiology 08/31/18 Influenza Types A,B Antigen (SELIN) - Final, Complete My Orders Orders - LEANDER MAYNARD MD Albuterol/Ipra Inhalation Soln (Duoneb I (08/31/18 08:30) Svn Small Volume Nebulizer (08/31/18 08:18) Cbc With Automated Diff (08/31/18 08:18) Comprehensive Metabolic Panel (08/31/18 08:18) Blood Culture (08/31/18 08:18) Sputum Culture (08/31/18 08:18) Urinalysis (08/31/18 08:18) Urine Culture (08/31/18 08:18) Protime With Inr (08/31/18 08:18) Partial Thromboplastin Time (08/31/18 08:18) Chest 1 View, Ap/Pa Only (08/31/18 08:18) Saline Lock/Iv-Start (08/31/18 08:18) Saline Lock/Iv-Start (08/31/18 08:18) Ekg Tracing (08/31/18 08:18) Vital Signs Adult Sepsis Patie Q15M (08/31/18 08:18) O2 (08/31/18 08:18) Remove Rings In Anticipation O (08/31/18 08:18) Lactic Acid Analyzer (08/31/18 08:18) Influenza A And B Antigens (08/31/18 08:18) BNP (08/31/18 08:18) Ns (Ivpb) (Sodium C... W/Diltiazem Iv Fo (08/31/18 08:30) Acetaminophen Tablet (Tylenol Tablet) (08/31/18 08:30) Saline Lock/Iv-Start (08/31/18 08:33) Ns Iv 1000 Ml (Sodium Chloride 0.9%) (08/31/18 08:33) Bipap (Bilevel) Set Up (08/31/18 08:33) Manual Differential (08/31/18 08:25) Hs C Reactive Protein (08/31/18 08:25) Cefepime Injection (Maxipime Injection) (08/31/18 09:00) Saline Lock/Iv-Start (08/31/18 09:07) Ns Iv 1000 Ml (Sodium Chloride 0.9%) (08/31/18 09:07) Ondansetron Injection (Zofran Injectio (08/31/18 09:15) Arterial Blood Gas (08/31/18 09:25) Ns Iv 1000 Ml (Sodium Chloride 0.9%) (08/31/18 09:45) Arterial Blood Gas (08/31/18 09:43) Phenylephrine Injection (Alberto-Synephrine (08/31/18 10:45) Phenylephrine Injection (Alberto-Synephrine (08/31/18 10:45) Medications Given in ED Current Medications Medications Dose Ordered Sig/Jadon Route Start Time Stop Time Status Last Admin Dose Admin Acetaminophen 1,000 mg ONCE ONCE PO 08/31/18 08:30 08/31/18 08:31 DC 08/31/18 08:30 1,000 MG Albuterol/ Ipratropium 3 ml ONCE ONCE INH 08/31/18 08:30 08/31/18 08:31 DC 08/31/18 08:31 3 ML Cefepime HCl 2000 mg/Sodium Chloride 50 ml @ 100 mls/hr ONCE ONCE IV 08/31/18 09:00 08/31/18 09:29 DC 08/31/18 08:58 100 MLS/HR Sodium Chloride 1,000 ml @ 0 mls/hr Q0M ONCE IV 08/31/18 08:33 08/31/18 08:35 DC 08/31/18 08:42 1,000 MLS/HR Sodium Chloride 1,000 ml @ 0 mls/hr Q0M ONCE IV 08/31/18 09:07 08/31/18 09:08 DC 08/31/18 09:10 1,000 MLS/HR Vital Signs/I&O 08/31/18 08/31/18 08/31/18 08/31/18 08:10 08:30 08:31 08:40 Temp 102.1 101.2 Pulse 165 167 Resp 28 19 B/P (MAP) 126/89 (101) Pulse Ox 97 100 95 O2 Delivery OxyMask OxyMask O2 Flow Rate 10.00 6.00 50.00 08/31/18 08:50 Pulse 178 Resp 24 B/P (MAP) 118/65 Pulse Ox 95 O2 Delivery NIV/Bilevel O2 Flow Rate 10.00 Capillary Refill : Less Than 3 Seconds Blood Pressure Mean: 89 Progress Note #1: Time: 08:44 Progress Note Patient felt febrile and he indeed measured a fever greater than 102. Septic workup was pursued. Influenza screen was obtained. DuoNeb treatment was administered as patient was in respiratory failure with hypoxia. BiPAP was started. I would like to avoid intubation as patient is coughing up bright red blood. INR is pending. If elevated, FFP will be considered. After DuoNeb treatment BiPAP was initiated at 12/5. Oxygen saturations have recovered. Chest x-ray revealed cardiomegaly with chronic stable congestion and in no overt infiltrate or pneumonia. Tylenol was given for fever. Cardizem drip was started at 10 mg per hour. Full CODE STATUS was confirmed with patient and his . Progress Note #2: Time: 08:50 Progress Note Patient's last EF on echocardiogram was 60 percent. Patient is on BiPAP to provide positive pressure and to avoid pulmonary edema as IV fluids have been initiated. Patient remains extremely tachycardic on Cardizem drip. We will titrate as necessary. The second set of blood cultures are being obtained. Sepsis is being presumed as patient has an immunocompromise state. Cefepime 2 g IV has been ordered. Progress Note #3: Time: 09:18 Progress Note Patient had some brief hypotension while on Cardizem at 10 mg per hour. Rate was reduced to 5 mg per hour. Heart rate was in the 120s. A second liter of IV fluid was started in the other IV. Cefepime is infusing. Case was discussed with Dr. Blanco. He will present to the emergency room in the near future to assess the patient. We discussed the potential for FFP infusion given the hypertherapeutic INR. Since patient has only had one episode of hemoptysis less than 1 teaspoon in volume since arriving to the ER, Dr. Blanco would like to hold off on FFP for now. Patient's blood pressure did rebound when Cardizem was adjusted and the second liter of IVF was initiated. Progress Note #4: Time: 09:35 Progress Note Patient's vital signs are stabilizing. Respiratory status is stable on BiPAP. Dr. Blanco has presented to the ER to assess the patient. He plans for central line placement after transfer to the ICU. Dr. Chapman was also consulted and agrees with plan. Dr. Blanco will enter the severe sepsis orders via EMR. Influenza screen was negative but I am suspicious of influenza based on symptoms. Progress Note #5: Time: 09:44 Progress Note Patient has again become hypotensive. Cardizem drip will be positive. The second liter of IVF is finishing. A third liter will be administered to complete the 30 ML per kilogram boluses per ideal body weight. Progress Note #6: Time: 10:12 Progress Note Cardizem drip has been discontinued for the time being. Heart rate is in the 100s. Patient is still hypotensive with a systolic blood pressure in the 70s. We will give him a break off of BiPAP and continue the third liter of IV. If this does not improve his blood pressure, pressors may be considered. Progress Note #7: Time: 10:36 Progress Note Patient persistently hypotensive with a Cardizem drip off, heart rate controlled , a third liter of IV fluid infusing, and a break from BiPAP. Case discussed with Dr. Chapman. Alberto-Synephrine drip will be initiated. Progress Note #8: Time: 10:44 Progress Note Alberto-Synephrine was just received from pharmacy. It is being taken to ICU with the patient. Patient is presently in transit to ICU. ECG Initial ECG Impression Date: Aug 31, 2018 Initial ECG Impression Time: 08:18 Initial ECG Rate: 171 Initial ECG Rhythm: A Fib/Flutter Comment Atrial fibrillation with RVR. No overt ST elevation. Diagnostic Imaging Diagonstic Imaging: Xray Plain Films/CT/US/NM/MRI: chest Comments Chest x-ray viewed by me and compared with prior. Report reviewed. See report below: NAME: DAVID CHONG [facility] REC#: [id number] PT STATUS: REG ER : 1945 PHYSICIAN: LEANDER MAYNARD MD ADMIT DATE: 08/31/18/ER Draft Date of Exam:08/31/18 CHEST 1 VIEW, AP/PA ONLY INDICATION: Shortness of breath, hemoptysis. Portable chest 8:28 a.m. FINDINGS: There are postop changes from CABG surgery. There is cardiomegaly. Pulmonary vascularity is upper limits of normal. There are no infiltrates, effusions or pneumothoraces. IMPRESSION: Cardiomegaly with mild pulmonary venous congestion. Dictated on workstation # [id number] Dict: 08/31/18 0834 Trans: 08/31/18 0838 [id number] Interpreted by: KIMBERLY BEE MD Critical Care Note Critical Care Start Time: 08:09 Stop Time: 10:39 Total Time (minutes) 150 Departure Communication (Admissions) Time/Spoke to Admitting Phy: 09:32 Dr. Bond Time/Spoke to Consulting Phy: 09:10 Dr. Blanco, Dr. Chapman Impression Primary Impression: Severe sepsis Additional Impressions: Atrial fibrillation with RVR Respiratory failure with hypoxia Qualified Codes: J96.01 - Acute respiratory failure with hypoxia Immunocompromised Hemoptysis Acute on chronic renal failure Qualified Codes: N17.9 - Acute kidney failure, unspecified; N18.9 - Chronic kidney disease, unspecified Supratherapeutic INR Disposition: ADMITTED INPATIENT Condition: Improved Admissions Decision to Admit Reason: Admit from ER (General) Decision to Admit/Date: Aug 31, 2018 Time/Decision to Admit Time: 08:10 Departure-Patient Inst. Referrals: DURAN SANDERS DO (PCP/Family) Primary Care Physician LEANDER MAYNARD MD Aug 31, 2018 08:58
[2018-08-31] MEDS ORDERED: CEFEPIME INJECTION 2,000 MG in NS (IVPB) 50 ML IV ONE (09:00)
[2018-08-31 09:03] LABS: BILIRUBIN,TOTAL 1.3 MG/DL (0.1-1.0); CALCIUM 9.2 MG/DL (8.5-10.1); CREATININE SERUM 2.81 MG/DL (0.60-1.30); POTASSIUM 4.9 MMOL/L (3.6-5.0); TOTAL PROTEIN 6.9 GM/DL (6.4-8.2)
[2018-08-31] MEDS ORDERED: ONDANSETRON 4 MG/2 ML (SDV) Z0FRAN IVP ONE (09:15)
[2018-08-31 09:25] LABS: BAND NEUTROPHILS 27 %; BASOPHILS % (MANUAL) 0 %; EOSINOPHILS % (MANUAL) 2 %; LYMPHOCYTES % (MANUAL) 8 %; MONOCYTES % (MANUAL) 5 %; NEUTROPHILS % (MANUAL) 58 %
[2018-08-31 09:26] LABS: ANISOCYTOSIS SLIGHT; ELLIPT/OVALOCYTES SLIGHT; MICROCYTOSIS SLIGHT
--- OUTSIDE RECORDS SUMMARY | 2018-08-31 09:46 | XMS REPORT | Clinical Summary ---
Author Author [facility] Organization [facility] Address Unknown Phone Unavailable Care Team Providers Care Finance Director Name Role Phone Jamie Sanders MD PCP [...] in the Health Information Management department at [phone] for further assistance in locating additional records.[facility] Allergies Active Allergy Reactions Severity Noted [...] type (Primary Dx); Status post liver transplant ([facility]) 08/21/2018 Hospital Lab Valdemar Phillips MD Liver transplant status Encounter ([facility]) 08/16/2018 Telephone Transplant Surgery Mattie Callaway BSN [...] 7.0 6.7 (10/21/2010 11:50 AM No Laureen, FABRICATION AND LAYOUT CRAFTSMAN) KILEY Mcintosh Procedures Procedure Name Priority Date/Time [...] Specimen Urine - Urine Performing Organization Address [facility] Phone Number [facility] [address] [place] [address] * IRON + BINDING CAPACITY + %SAT+ FERRITIN (08/21/2018 11:04 AM) Iron 40 (L) 50 - 185 MCG/DL [facility] Iron Binding-TIBC 434 (H) 270 - 380 MCG/DL [facility] % Saturation 9 (L) 28 - 42 % [facility] Ferritin 19 (L) 30 - 300 NG/ML [facility] Performing Organization Address [facility] Phone Number [facility] [address] [place] [address] * GGTP (08/21/2018 11:04 AM) GGTP 27 9 - 64 U/L [facility] Specimen Blood Performing Organization Address [facility] Phone Number [facility] [address] [place] [address] * TACROLIMUS LEVEL([id number]) (08/21/2018 11:04 AM) Tacrolimus 6.2 2 - 15 NG/ML [facility] Comment: Target concentrations vary by type of transplant, patient response, concomitant immunosuppression and post-transplant time interval.Test was performed on whole blood using [employer] QMS reagent and a Kristy Erik AU analyzer. Specimen Blood Performing Organization Address [facility] Phone Number [facility] [address] [place] [address] * 25-OH VITAMIN D (D2 + D3) (08/21/2018 11:04 AM) Vitamin D(25-OH)Total 21.6 (L) 30 - 80 NG/ML [facility] Specimen Blood Performing Organization Address [facility] Phone Number [facility] [address] [place] [address] * CBC AND DIFF (08/21/2018 11:04 AM) [...] MAIN LAB Specimen Blood Performing Organization Address [facility] Phone Number [facility] [address] [place] [address] * TRANSFERRIN (08/21/2018 11:04 AM) Transferrin 291 185 - 336 MG/DL [facility] Performing Organization Address [facility] Phone Number [facility] [address] [place] [address] * PHOSPHORUS (08/21/2018 11:04 AM) Phosphorus 3.1Comment: NOTE NEW REFERENCE 2.0 - 4.5 MG/DL [facility] RANGES Specimen Blood Performing Organization Address [facility] Phone Number [facility] [address] [place] [address] * MAGNESIUM (08/21/2018 11:04 AM) Magnesium 1.6 1.6 - 2.6 mg/dL [facility] Specimen Blood Performing Organization Address [facility] Phone Number [facility] [address] [place] [address] * LIPID PROFILE (08/21/2018 11:04 AM) Cholesterol [...] 130 mg/dL. Specimen Blood Performing Organization Address [facility] Phone Number [facility] [address] [place] [address] * COMPREHENSIVE METABOLIC PANEL (08/21/2018 11:04 AM) [...] Address City/State/Zipcode Phone Number [facility] [address] [place] [address] from Last 3 Months
--- OUTSIDE RECORDS SUMMARY | 2018-08-31 09:46 | XMS REPORT | Encounter Summary ---
Author Author [facility] Organization [facility] Address Unknown Phone Unavailable Care Team Providers Care Field Consultant Name Role Phone Jamie Sanders MD PCP [...] Callaway BSN Medication Dose Change Transplantation-Liver Transplant [facility] [address] [place] [address] Social History Tobacco Use Types Packs/Day Years [...]
--- OUTSIDE RECORDS SUMMARY | 2018-08-31 09:46 | XMS REPORT | Encounter Summary ---
Author Author [facility] Organization [facility] Address Unknown Phone Unavailable Care Team Providers Care Pricing Manager Name Role Phone Jamie Sanders MD PCP [...] Unavailable Carlotta De La Torre Unavailable Unavailable uJstine Marquez Unavailable Unavailable Saad Godinez MD Unavailable Yeyo Roberson MD Unavailable Cuba Li MD Unavailable Encounter Details Date Type Department Care Team Description 08/25/2018 [facility] for Valdemar Phillips MD Transplantation-Liver [address] Transplant Hep [id number] [address] [address] [facility] [phone] [place] [address] [phone] Social History Tobacco Use Types Packs/Day Years [...] Faxed request to Dr. Li at fax# [phone], requesting all patient cardiology records.Peng Rivas in this encounter Plan of Treatment Not on fileas of this encounter Goals Patient Goal Type Goal Recent Progress Patient-Stat Author ed? Result Component HEMOGLOBIN A1C < 7.0 6.7 (10/21/2010 11:50 AM No ALEXSANDER Garduno) KILEY Mcintosh as of this encounter Visit Diagnoses Not on filein this encounter
--- OUTSIDE RECORDS SUMMARY | 2018-08-31 09:47 | XMS REPORT | Encounter Summary ---
Author Author [facility] Organization [facility] Address Unknown Phone Unavailable Care Team Providers Care Supervisor Fish Hatchery Name Role Phone Jamie Sanders MD PCP [...] [address] (Primary Dx); Transplant Hep [id number] Status post liver [facility] [address] [place] [address] transplant (HCC) [address] [phone] [place] [address] [phone] Social History Tobacco Use Types Packs/Day Years [...] records from Dr. Cuba Li cardiology in [place] in this encounter Progress Notes * Valdemar [...] PRADO status post orthotopic liver transplant at [facility] in 2010. He was last seen [...] weeks ago. He was following with a jingle writer named Dr. Li who reportedly has performed [...] hemoglobin A1c. He is frustrated with the [place] hospital system because they have discontinued some of his opioid narcotics due to the "opioid epidemic" in the current regimen he is being prescribed is not as effective for his chronic knee and back pain related to advanced osteoarthritis. He has not seen a braille duplicating machine operator for annual skin exam but does have a lesion on his left ear which is primary care doctor, Dr. Sanders, is planning on excising. Denies chest pain, shortness of breath, nausea, vomiting. He otherwise had no other new complaints or symptoms to report. He lives in [place], [place] with his . Review of Systems [...] PRADO status post orthotopic liver transplant at [facility] in 2010. He was last seen [...] well as spironolactone and follows with a jingle writer, Dr. Li. Weight today is 235 pounds [...] hospital discharge in February. Evaluation by his jingle writer has included Doppler ultrasound, TTE and Holter [...] recommended that he be screened by a braille duplicating machine operator. 15. Colon cancer screening. His last [...] patient to call or contact us at [phone] if I may be of further assistance in his care. The patient understands to call or contact us with any changes in status. Thank you very much for allowing me to participate in care of this very kind and interesting patient. Please do not hesitate to call or contact me at [phone] if I may be of further assistance [...] versus PRADO with previous liver transplant at [facility] in November 2010. He has had [...] he did have an acute hospitalization at [facility] in February 2018, with respiratory failure. [...] He has had local followup with his jingle writer. He has had recent concerns for falling [...] ascites. He had a paracentesis performed at [facility] earlier in June of 2017, and he reports having a previous paracentesis locally at [facility]. He reports that he has had ongoing [...] encouraged him to follow up with his jingle writer for ongoing workup and evaluation due to [...] hesitate to call or contact me at [phone] if I may be of further assistance in his care. Valdemar Phillips MD (DOC:[id number]) Staff name: Valdemar Phillips MD Date: 08/21/2018 [...]
--- OUTSIDE RECORDS SUMMARY | 2018-08-31 09:47 | XMS REPORT | Encounter Summary ---
Author Author [facility] Organization [facility] Address Unknown Phone Unavailable Care Team Providers Care Python Java Developer Name Role Phone Jamie Sanders MD PCP [...] Unavailable Unavailable Kenneth Lewis MD Unavailable Maryanne Olvia DO Unavailable Mattie CallawayN Unavailable Unavailable Bull Roya Unavailable Unavailable Batsheva Long MA Unavailable Unavailable Carlotta De La Torre Unavailable Unavailable Justine Marquez Unavailable Unavailable Saad Godinez MD Unavailable Yeyo Roberson MD Unavailable Encounter Details Date Type Department Care Team Description 08/21/2018 [facility] Valdemar Phillips MD Liver transplant status Encounter [facility] [address] (HCC) [address] [place] [address] [place] [address] [phone] Social History Tobacco Use Types Packs/Day Years [...] Specimen Urine - Urine Performing Organization Address [facility] Phone Number [facility] [address] [place] [address] * TRANSFERRIN (08/21/2018 11:04 AM) Transferrin 291 185 - 336 MG/DL [facility] Performing Organization Address [facility] Phone Number [facility] [address] [place] [address] * IRON + BINDING CAPACITY + %SAT+ FERRITIN (08/21/2018 11:04 AM) Iron 40 (L) 50 - 185 MCG/DL [facility] Iron Binding-TIBC 434 (H) 270 - 380 MCG/DL [facility] % Saturation 9 (L) 28 - 42 % [facility] Ferritin 19 (L) 30 - 300 NG/ML [facility] Performing Organization Address [facility] Phone Number [facility] [address] [place] [address] * 25-OH VITAMIN D (D2 + D3) (08/21/2018 11:04 AM) Vitamin D(25-OH)Total 21.6 (L) 30 - 80 NG/ML [facility] Specimen Blood Performing Organization Address [facility] Phone Number [facility] [address] [place] [address] * LIPID PROFILE (08/21/2018 11:04 AM) Cholesterol [...] 130 mg/dL. Specimen Blood Performing Organization Address [facility] Phone Number [facility] LAB [address] [place] [phone] * TACROLIMUS LEVEL([id number]) (08/21/2018 11:04 AM) Tacrolimus 6.2 2 - 15 NG/ML [facility] Comment: Target concentrations vary by type of transplant, patient response, concomitant immunosuppression and post-transplant time interval.Test was performed on whole blood using [employer] QMS reagent and a Kristy Erik AU analyzer. Specimen Blood Performing Organization Address [facility] Phone Number MAIN LAB [address] [place] [phone] * GGTP (08/21/2018 11:04 AM) GGTP 27 9 - 64 U/L MAIN LAB Specimen Blood Performing Organization Address [facility] Phone Number MAIN LAB [address] [place] [address] * PHOSPHORUS (08/21/2018 11:04 AM) Phosphorus 3.1Comment: NOTE NEW REFERENCE 2.0 - 4.5 MG/DL [facility] RANGES Specimen Blood Performing Organization Address [facility] Phone Number [facility] LAB [address] [place] [address] * MAGNESIUM (08/21/2018 11:04 AM) Magnesium 1.6 1.6 - 2.6 mg/dL MAIN LAB Specimen Blood Performing Organization Address [facility] Phone Number [facility] LAB [address] [place] [address] * CBC AND DIFF (08/21/2018 11:04 AM) [...] Performing Organization Address City/State/Zipcode Phone Number [facility] [address] [place] [address] * COMPREHENSIVE METABOLIC PANEL (08/21/2018 11:04 AM) [...] Blood Performing Organization Address City/State/Zipcode Phone Number [facility] [address] [place] [address] in this encounter Visit Diagnoses Diagnosis 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
--- OUTSIDE RECORDS SUMMARY | 2018-08-31 09:47 | XMS REPORT | Encounter Summary ---
Author Author [facility] Organization [facility] Address Unknown Phone Unavailable Care Team Providers Care Spring Machine Operator Name Role Phone Jamie Sanders [...] Mattie Callaway BSN Labs Only Transplantation-Liver Transplant [facility] [address] [place] [address] Social History Tobacco Use Types Packs/Day Years [...] Specimen Urine - Urine Performing Organization Address City/[facility] Phone Number [facility] LAB [address] [place] [address] * 25-OH VITAMIN D (D2 + D3) (08/21/2018 11:04 AM) Vitamin D(25-OH)Total 21.6 (L) 30 - 80 NG/ML [facility] Specimen Blood Performing Organization Address [facility] Phone Number MAIN LAB [address] [place] [address] * LIPID PROFILE (08/21/2018 11:04 AM) Cholesterol [...] 130 mg/dL. Specimen Blood Performing Organization Address [facility] Phone Number MAIN LAB [address] [place] [address] * TACROLIMUS LEVEL([id number]) (08/21/2018 11:04 AM) Tacrolimus 6.2 2 - 15 NG/ML [facility] Comment: Target concentrations vary by type of transplant, patient response, concomitant immunosuppression and post-transplant time interval.Test was performed on whole blood using [employer] QMS reagent and a [employer] [place] AU analyzer. Specimen Blood Performing Organization Address [facility] Phone Number [facility] LAB [address] [place] [address] * GGTP (08/21/2018 11:04 AM) GGTP 27 9 - 64 U/L [facility] Specimen Blood Performing Organization Address [facility] Phone Number [facility] LAB [address] [place] [address] * PHOSPHORUS (08/21/2018 11:04 AM) Phosphorus 3.1Comment: NOTE NEW REFERENCE 2.0 - 4.5 MG/DL [facility] RANGES Specimen Blood Performing Organization Address [facility] Phone Number [facility] [address] [place] [address] * MAGNESIUM (08/21/2018 11:04 AM) Magnesium 1.6 1.6 - 2.6 mg/dL [facility] Specimen Blood Performing Organization Address [facility] Phone Number [facility] [address] [place] [address] * CBC AND DIFF (08/21/2018 11:04 AM) [...] MAIN LAB Specimen Blood Performing Organization Address [facility] Phone Number [facility] [address] [place] [address] * COMPREHENSIVE METABOLIC PANEL (08/21/2018 11:04 AM) [...] Organization Address City/State/Zipcode Phone Number MAIN LAB [address] [place] [address] in this encounter Visit Diagnoses Diagnosis Liver replaced by transplant (HCC) - Primary Liver replaced by transplant Disorder of bone density and structure, unspecified
[2018-08-31 10:00] LABS: ABG BASE EXCESS 1.3 MMOL/L (-2.5-2.5); ABG OXYGEN SATURATION 100 % (94-100); ABG PCO2 52 MMHG (35-45); ABG PO2 142 MMHG (79-93); ABG TCO2 27.9 MMOL/L (21.0-31.0)
[2018-08-31 10:02] LABS: ABG PH 7.33 (7.37-7.43); ALLENS TEST YES-POS; INSPIRED O2 50%; VENTILATOR NO
[2018-08-31 10:03] LABS: PATIENT TEMP 100.5
[2018-08-31] MEDS ORDERED: PHENYLEPHRINE 10 MG/NS 250 ML IV ONE ×2 (10:45)
[2018-08-31] MEDS ORDERED: PHENYLEPHRINE INJECTION 10 MG in NS (IVPB) 250 ML IV SCH (10:45)
[2018-08-31] MEDS ORDERED: LACTATED RINGERS 1,000 ML IV ONE (11:02)
[2018-08-31] MEDS ORDERED: NOREPINEPHRINE 4 MG/4 ML (LEVOPHED) AMP IV ONE (11:09)
[2018-08-31] MEDS ORDERED: NS (IVPB) 250 ML ONE (11:09)
[2018-08-31] MEDS ORDERED: PHARMACY TO DOSE IV SCH (11:15)
[2018-08-31] MEDS ORDERED: ONDANSETRON 4 MG/2 ML (SDV) Z0FRAN IV PRN (11:15)
[2018-08-31] MEDS ORDERED: CATHETER FLUSH 10 ML SYR IV PRN (11:15)
[2018-08-31] MEDS ORDERED: NOREPINEPHRINE 4 MG in NS (IVPB) 250 ML IV SCH (11:15)
[2018-08-31] MEDS ORDERED: RT-ALBUTEROL/IPRATROPIUM 3 ML (DUONEB) VIAL INH SCH (11:15)
[2018-08-31] MEDS ORDERED: PIPERACILLIN/TAZO 4.5 GM VIAL (ZOSYN) IV ONE (11:20)
[2018-08-31] MEDS ORDERED: NS (IVPB) 100 ML ONE (11:20)
[2018-08-31] MEDS ORDERED: PIPERACILLIN/TAZO 4.5 GM/NS 100 ML IV NR ×2 (11:25)
--- NOTE | 2018-08-31 11:25 | Pulmonary Consultation ---
History of Present Illness History of Present Illness Date of Consultation 08/31/18 11:21 Time Seen by Provider: 11:29 Date of Admission History of Present Illness 73yo with hx of liver transplant and is on immunosuppressive medications presented to ED secondary to worsening respiratory failure and found to be hypoxic with Sp02 of 76%. Pt has also had hemoptysis. He is on Coumadin for Afib. Pt has also been confused prior to admission. I am consulted for pulmonary management. Allergies and Home Medications Allergies Coded Allergies: meperidine (Verified Allergy, Unknown, 08/31/18) morphine (Verified Allergy, Unknown, 08/31/18) Home Medications Acetaminophen 500 Mg Tablet, 500-1,000 MG PO Q4H PRN for PAIN-MILD, (Reported) Allopurinol 100 Mg Tablet, 100 MG PO HS, (Reported) Diclofenac Sodium 100 Gm Gel..gram., 4 GM TP BID PRN for JOINT PAIN, (Reported) Docusate Sodium 100 Mg Capsule, 100 MG PO DAILY, (Reported) Furosemide 40 Mg Tablet, 120 MG PO DAILY, (Reported) TAKES 3 (40MG) TABLETS Indomethacin 50 Mg Capsule, 50 MG PO TID, (Reported) 5 DAY THERAPY FILLED 08-28-18 Insulin Aspart 100 Unit/1 Ml Susp, SQ AC, (Reported) 13 UNITS PLUS SLIDING SCALE Insulin Detemir 100 Unit/1 Ml Insuln.pen, 36 UNIT SQ 0800, (Reported) Insulin Detemir 100 Unit/1 Ml Insuln.pen, 18 UNIT SQ HS, (Reported) Lidocaine HCl 35 Gm Oint, TP TID, (Reported) Mycophenolate Mofetil 250 Mg Capsule, 500 MG PO BID, (Reported) TAKES 2 (250MG) CAPSULES Omeprazole 40 Mg Capsule.dr, 40 MG PO DAILY, (Reported) Oxycodone HCl 10 Mg Tablet, 20 MG PO DAILY, (Reported) TAKES 2 (10MG) TABLETS Oxycodone HCl 10 Mg Tablet, 30 MG PO HS, (Reported) TAKES 3 (10MG) TABLETS Pregabalin 150 Mg Capsule, 150 MG PO BID, (Reported) Ropinirole HCl 1 Mg Tablet, 1 MG PO BID, (Reported) Spironolactone 25 Mg Tablet, 25 MG PO DAILY, (Reported) Tacrolimus 1 Mg Capsule, 1 MG PO BID, (Reported) Triamcinolone Acetonide 15 Gm Cream..g., TP DAILY PRN for NEEDED, (Reported) Ursodiol 300 Mg Capsule, 300 MG PO BID, (Reported) Warfarin Sodium 5 Mg Tablet, 5 MG PO SuMoWeThSa, (Reported) Warfarin Sodium 7.5 Mg Tablet, 7.5 MG PO TuFr, (Reported) Past Ksrklwx-Pzlfur-Ajqqqm Hx Past Med/Social Hx: Reviewed and Corrections made Patient Social History Alcohol Use: Denies Use Recreational Drug Use: No Smoking Status: Former Smoker Recent Foreign Travel: No Contact w/Someone Who Travel: No Recent Infectious Disease Expo: No Recent Hopitalizations: No Immunizations Up To Date Tetanus Booster (TDap): Less than 5yrs PED Vaccines UTD: Yes Date of Pneumonia Vaccine: Aug 14, 2014 Date of Influenza Vaccine: Jul 23, 2016 Seasonal Allergies Seasonal Allergies: No Past Medical History Surgeries: Yes Cardiac, CABG, Coronary Stent, Eye Surgery, Liver Transplant, Orthopedic, Rectal , Vasectomy Respiratory: Yes Pneumonia Cardiac: Yes Atrial Fibrillation, Chronic Edema/Swelling, Coronary Artery Disease, High Cholesterol, Hypertension Neurological: Yes Neuropathy Reproductive Disorders: No (VASECTOMY) Genitourinary: No Gastrointestinal: Yes Liver Disease/Jaundice Musculoskeletal: Yes Chronic Back Pain Endocrine: Yes Diabetes, Insulin dep HEENT: Yes Cataract Loss of Vision: Denies Hearing Impairment: Denies Cancer: No Psychosocial: No Integumentary: No Blood Disorders: Yes (immunosuppressed with history of liver transplant) Adverse Reaction/Blood Tranf: No Family Medical History Reviewed Nursing Family Hx Cancer of mouth 19 MOTHER Completed stroke 19 MOTHER G8 BROTHER Myocardial infarction 19 FATHER No Pertinent Family Hx, Heart Disease, Cancer Review of Systems Time Seen by Provider: 10:30 Sepsis Event Evaluation Height, Weight, BMI Height: 6'0" Weight: 234lbs. 2.0oz. 106.936945ct; 33.2 BMI Method:Stated Exam Exam Vital Signs Date Time Temp Pulse Resp B/P (MAP) Pulse Ox O2 Delivery O2 Flow Rate FiO2 08/31/18 11:02 113 16 90/42 (58) 97 OxyMask 10.00 08/31/18 08:50 178 24 118/65 95 NIV/Bilevel 10.00 08/31/18 08:40 167 19 95 50.00 08/31/18 08:31 100 OxyMask 6.00 08/31/18 08:30 101.2 08/31/18 08:10 102.1 165 28 126/89 (101) 97 OxyMask 10.00 Height & Weight Height: 6'0" Weight: 234lbs. 2.0oz. 106.070714zv; 33.2 BMI Method:Stated General Appearance: WD/WN, Mild Distress (respiratory) HEENT: PERRL/EOMI, Normal ENT Inspection Neck: Normal Inspection Respiratory: Lungs Clear, Decreased Breath Sounds, Other (On BiPAP) Cardiovascular: No Edema, No Murmur, Normal Peripheral Pulses, Irregularly Irregular Capillary Refill: Less Than 3 Seconds Extremity: Normal Capillary Refill, Normal Inspection, No Pedal Edema Neurologic/Psychiatric: Alert, Oriented x3, No Motor/Sensory Deficits, Normal Mood/Affect, health aide II-XII Norm as Tested, Other (mentation dulled. Tremoring or shivering with involuntary jerks) Results Lab Laboratory Tests 08/31/18 08:25 Assessment/Plan Assessment/Plan Acute respiratory failure -Currently requiring BiPAP -Oxygen -Will get a CT of chest once patient is stable enough for it Severe Sepsis with iatrogenic immunodiff -Start Vancomycin, and Zosyn -Samaniego culture Septic shock with hypotension -IVF -Start Solucortef Coumadin coagulopathy with hemoptysis -Hold Coumadin Will obtain PICC line Critical Care: Critically Ill Patient POOL RECIO DO Aug 31, 2018 11:25
[2018-08-31] MEDS ORDERED: RT-ALBUTEROL/IPRATROPIUM 3 ML (DUONEB) VIAL INH PRN (11:30)
[2018-08-31] MEDS ORDERED: NS IV 1000 ML 1,000 ML IV SCH ×2 (11:30→19:30)
[2018-08-31] MEDS ORDERED: LACTATED RINGERS IV PRN (11:30)
[2018-08-31] MEDS: NOREPINEPHRINE 4 MG in NS (IVPB) 250 ML IV SCH ×2 (11:33→21:12)
[2018-08-31] MEDS: LACTATED RINGERS 1,000 ML IV SCH ×2 (11:35→17:57)
[2018-08-31 12:02] LABS: AMORPHOUS SEDIMENT,UR FEW AMOR URATES /LPF; BACTERIA,URINE TRACE /HPF; BILIRUBIN,URINE 1+ (NEGATIVE); CLARITY,URINE CLEAR; COLOR,URINE AMBER; GLUCOSE, URINE (UA) NEGATIVE (NEGATIVE); KETONES,URINE NEGATIVE (NEGATIVE); LEUKOCYTE ESTERASE ,URINE 1+ (NEGATIVE); NITRITE,URINE NEGATIVE (NEGATIVE); PH,URINE 5 (5-9); PROTEIN,URINE 1+ (NEGATIVE); UROBILINOGEN,URINE NORMAL (NORMAL); WBC,URINE RARE /HPF
[2018-08-31] MEDS ORDERED: VANCOMYCIN 2000 MG/NS 500 ML IVPB IV NR ×2 (12:30)
[2018-08-31] MEDS ORDERED: ACETAMINOPHEN 325 MG TABLET PO PRN (12:45)
--- NOTE | 2018-08-31 14:19 | Anesthesia-Procedure Note ---
Procedures/Interventions Procedure Start/Stop/Diagnosis Date of Procedure: Aug 31, 2018 Start Time: 13:00 Referring Physician: Dr [place] Preprocedural Diagnosis: Sepsis, Need for frequent ABG's Brief History Called for arterial line placement. Discussed the procedure with the patient. Questions answered. Pt tolerated the procedure well. Stop Time: 13:05 Postprocedural Diagnosis: same Arterial Line Arterial Line Catheter: 20G Type: Radial Location: Left Procedure: good wave-form was obtained, patient tolerated procedure well, no immediate complications (Sterile prep with ChloraPrep), post procedure area cleaned, post procedure dressing applied PETRONA COLEY DO Aug 31, 2018 14:19
[2018-08-31] MEDS: HYDROCORTISONE 100 MG/2 ML (Solu-CORTEF) VIAL IV SCH ×2 (14:32→22:12)
[2018-08-31] MEDS: CATHETER FLUSH 10 ML SYR IV SCH ×2 (14:32→22:09)
[2018-08-31] MEDS: RT-ALBUTEROL/IPRATROPIUM 3 ML (DUONEB) VIAL INH SCH ×3 (14:34→21:58)
[2018-08-31] MEDS ORDERED: ROPI1TAB2 PO (15:36)
[2018-08-31] MEDS ORDERED: SPIR25TA PO (15:36)
[2018-08-31] MEDS ORDERED: PREG150C PO (15:36)
[2018-08-31] MEDS ORDERED: FURO40TA4 PO (15:36)
[2018-08-31] MEDS ORDERED: OXYC10TA7 PO ×2 (15:36)
[2018-08-31] MEDS ORDERED: ACET-2267 PO (15:36)
[2018-08-31] MEDS ORDERED: DOCU-143 PO (15:36)
[2018-08-31] MEDS ORDERED: OMEP20CA12 PO (15:36)
--- NOTE | 2018-08-31 15:37 | Diagnostic Imaging Report ---
INDICATION: PICC line placement. TIME OF EXAM: 02:20 p.m. FINDINGS: Changes of median sternotomy are noted. A right upper extremity PICC line appears to have the tip in good position overlying the SVC-right atrial junction. No pneumothorax is seen. There is some chronic density in the right upper lobe. Left lung is clear. There is some patchy infiltrate or atelectasis in the right base. IMPRESSION: 1. Satisfactory PICC line placement. 2. Patchy right basilar infiltrate or atelectasis. Dictated by: Dictated on workstation # [id number]
[2018-08-31] MEDS ORDERED: INDO50CA11 PO (15:57)
[2018-08-31] MEDS ORDERED: DICL100G18 TP (15:57)
[2018-08-31] MEDS ORDERED: LD5O35 TP (15:57)
[2018-08-31] MEDS ORDERED: TRIA15CR TP (15:57)
[2018-08-31] MEDS ORDERED: OMEP40CA36 PO (15:57)
--- NOTE | 2018-08-31 16:54 | Consultation-Cardiology ---
HPI-Cardiology Cardiology Consultation: Date of Consultation 08/31/18 Date of Admission Attending Physician Willis Blanco DO Admitting Physician Jamie Sanders DO Consulting Physician Alysa CHAPMAN MD HPI: Time Seen by a Provider: 16:54 Chief Complaint: Atrial fibrillation with rapid ventricular rate. This is a 73-year-old gentleman with history of CAD, atrial fibrillation on warfarin, liver transplant on immunosuppressive therapy. He presented with respiratory failure with hypoxia. He also complained of hemoptysis. He was found to be tachycardic and febrile. The patient denied any chest pain, syncope , near-syncope. Review of Systems-Cardiology Review of Systems Constitutional: As described under HPI; No As described under HPI, No no symptoms reported, No chills; fever; No lightheadedness Eyes: No As described under HPI, No no symptoms reported, No blindness, No blurred vision, No contact lenses, No drainage, No decreased acuity, No foreign body sensation, No pain, No vision change Ears/Nose/Throat: No As described under HPI, No no symptoms reported, No chronic hearing loss, No ear discharge, No ear pain, No nasal drainage, No ulcerations Respiratory: No no symptoms reported; As described under HPI; No As described under HPI, No cough; orthopnea, shortness of breath; No SOB with excertion Cardiovascular: No no symptoms reported; As described under HPI; No As described under HPI, No chest pain, No edema, No irregular heart rate, No lightheadedness; palpitations Gastrointestinal: No no symptoms reported, No As described under HPI, No abdomen distended, No abdominal pain, No blood streaked bowels, No constipation , No diarrhea, No nausea, No vomiting, No stool coloration changes Genitourinary: No As described under HPI, No burning, No dysuria, No discharge , No frequency, No flank pain, No hematuria, No urgency Skin: No rash, No skin related problems, No ulcerations Psychiatric/Neurological: No anxiety, No depression, No seizure, No focal weakness, No syncope Hematologic: No bleeding abnormalities UPC-Qybozx-Icoixe Hx Patient Social History Alcohol Use: Denies Use Recreational Drug Use: No Smoking Status: Former Smoker Former smoker/When Quit: Aug 14, 2000 Recent Foreign Travel: No Recent Infectious Disease Expo: No Hospitalization with Isolation: Denies Physical Abuse Screen: No Sexual Abuse: No Immunizations Up To Date Tetanus Booster (TDap): Less than 5yrs Date of Pneumonia Vaccine: Aug 14, 2014 Date of Influenza Vaccine: Aug 14, 2018 Past Medical History PMH As described under Assessment. Family Medical History Family History: Cancer of mouth 19 MOTHER Completed stroke 19 MOTHER G8 BROTHER Myocardial infarction 19 FATHER Allergies and Home Medications Allergies Coded Allergies: meperidine (Verified Allergy, Unknown, 08/31/18) morphine (Verified Allergy, Unknown, 08/31/18) Home Medications Acetaminophen 500 Mg Tablet, 500-1,000 MG PO Q4H PRN for PAIN-MILD, (Reported) Allopurinol 100 Mg Tablet, 100 MG PO HS, (Reported) Diclofenac Sodium 100 Gm Gel..gram., 4 GM TP BID PRN for JOINT PAIN, (Reported) Docusate Sodium 100 Mg Capsule, 100 MG PO DAILY, (Reported) Furosemide 40 Mg Tablet, 120 MG PO DAILY, (Reported) TAKES 3 (40MG) TABLETS Indomethacin 50 Mg Capsule, 50 MG PO TID, (Reported) 5 DAY THERAPY FILLED 08-28-18 Insulin Aspart 100 Unit/1 Ml Susp, SQ AC, (Reported) 13 UNITS PLUS SLIDING SCALE Insulin Detemir 100 Unit/1 Ml Insuln.pen, 36 UNIT SQ 0800, (Reported) Insulin Detemir 100 Unit/1 Ml Insuln.pen, 18 UNIT SQ HS, (Reported) Lidocaine HCl 35 Gm Oint, TP TID, (Reported) Mycophenolate Mofetil 250 Mg Capsule, 500 MG PO BID, (Reported) TAKES 2 (250MG) CAPSULES Omeprazole 40 Mg Capsule.dr, 40 MG PO DAILY, (Reported) Oxycodone HCl 10 Mg Tablet, 20 MG PO DAILY, (Reported) TAKES 2 (10MG) TABLETS Oxycodone HCl 10 Mg Tablet, 30 MG PO HS, (Reported) TAKES 3 (10MG) TABLETS Pregabalin 150 Mg Capsule, 150 MG PO BID, (Reported) Ropinirole HCl 1 Mg Tablet, 1 MG PO BID, (Reported) Spironolactone 25 Mg Tablet, 25 MG PO DAILY, (Reported) Tacrolimus 1 Mg Capsule, 1 MG PO BID, (Reported) Triamcinolone Acetonide 15 Gm Cream..g., TP DAILY PRN for NEEDED, (Reported) Ursodiol 300 Mg Capsule, 300 MG PO BID, (Reported) Warfarin Sodium 5 Mg Tablet, 5 MG PO SuMoWeThSa, (Reported) Warfarin Sodium 7.5 Mg Tablet, 7.5 MG PO Tu, (Reported) Patient Home Medication List Home Medication List Reviewed: Yes Physical Exam-Cardiology Physical Exam Vital Signs/I&O 09/01/18 09/01/18 09/01/18 09:00 10:00 10:07 Pulse 88 96 85 Resp 12 12 16 B/P (MAP) 123/54 (77) 122/55 (77) Pulse Ox 100 100 100 O2 Delivery Mechanical Ventilator Mechanical Ventilator O2 Flow Rate 50.00 50.00 FiO2 50 09/01/18 00:00 Intake Total 1620 ml Output Total 595 ml Balance 1025 ml Capillary Refill : Less Than 3 Seconds Constitutional: appears stated age, apparent distress, well-developed, well- nourished HEENT: PERRL; No discharge; hearing is well preserved, oral hygience is good; No ulceration, No xanthelasmas are seen Neck: No carotid bruit; carotid pulses are 2 + bilaterally Respiratory: accessory muscle use, respiratory distress, chest is bilaterally symmetric, crackles Cardiovascular: irregularly irregular, tachycardia, S1 and S2 Gastrointestinal: No tender, No soft, No round, No distended, No pulsatile mass , No organomegaly, No guarding, No rebound, No tenderness, No hernia, No mass, No audible bowel sounds, No abnormal bowel sounds, No abdominal bruits, No spleenomegaly, No other Rectal: deferred Extremities: No normal range of motion, No non-tender, No normal inspection, No pedal edema, No calf tenderness, No normal capillary refill, No pelvis stable , No calf tenderness, No inflammation, No pedal edema, No slow capillary refill , No swelling, No other, No abrasion, No clubbing, No cyanosis, No ecchymosis, No laceration, No no lower extremity edema bilateral, No significant edema, No tenderness, No wound Neurologic/Psychiatric: no motor/sensory deficits, alert, normal mood/affect, oriented x 3, power is 5/5 both on sides Skin: normal color, warm/dry Data Review Labs Laboratory Tests 09/01/18 00:04: Glucometer 193H 09/01/18 02:25: White Blood Count 29.3H, Red Blood Count 5.33, Hemoglobin 13.5, Hematocrit 42, Mean Corpuscular Volume 78L, Mean Corpuscular Hemoglobin 25, Mean Corpuscular Hemoglobin Concent 33, Red Cell Distribution Width 18.6H, Platelet Count 250, Mean Platelet Volume 10.0, Neutrophils (%) (Auto) 96H, Lymphocytes (%) (Auto) 1L , Monocytes (%) (Auto) 3, Eosinophils (%) (Auto) 0, Basophils (%) (Auto) 0, Neutrophils # (Auto) 28.0H, Lymphocytes # (Auto) 0.4L, Monocytes # (Auto) 0.8, Eosinophils # (Auto) 0.0, Basophils # (Auto) 0.0, Neutrophils % (Manual) 55, Lymphocytes % (Manual) 3, Monocytes % (Manual) 1, Band Neutrophils 41, Clumped Platelets , Polychromasia SLIGHT, Hypochromasia MODERATE, Basophilic Stippling SLIGHT, Microcytosis MODERATE, Elliptocytes SLIGHT, Blood Gas Puncture Site LEFT ART LINE, Blood Gas Patient Temperature 98.2, Arterial Blood pH 7.20*L, Arterial Blood Partial Pressure CO2 66H, Arterial Blood Partial Pressure O2 113H , Arterial Blood HCO3 25, Arterial Blood Total CO2 27.0, Arterial Blood Oxygen Saturation 98, Arterial Blood Base Excess -2.2, Omi Test ARTLINE, Blood Gas Ventilator Setting NO, Blood Gas Inspired Oxygen 35, Sodium Level 136, Potassium Level 5.0, Chloride Level 103, Carbon Dioxide Level 19L, Anion Gap 14 , Blood Urea Nitrogen 46H, Creatinine 2.27H, Estimat Glomerular Filtration Rate 28, BUN/Creatinine Ratio 20, Glucose Level 216H, Lactic Acid Level 2.30*H, Calcium Level 8.5, Phosphorus Level 4.9H, Magnesium Level 1.8, Troponin I < 0.30 09/01/18 05:05: Lactic Acid Level 2.22*H 09/01/18 06:30: Sodium Level 136, Potassium Level 4.7, Chloride Level 104, Carbon Dioxide Level 19L, Anion Gap 13, Blood Urea Nitrogen 46H, Creatinine 2.17H, Estimat Glomerular Filtration Rate 30, BUN/Creatinine Ratio 21, Glucose Level 232H, Calcium Level 8.4L, Prothrombin Time 69.1*H, INR Comment 8.2*H, Activated Partial Thromboplast Time 52H, Corrected Calcium 9.2, Total Bilirubin 1.2H, Aspartate Amino Transf (AST/SGOT) 8, Alanine Aminotransferase (ALT/SGPT) 7, Alkaline Phosphatase 64, Total Protein 5.1L, Albumin 3.0L, Triglycerides Level 130 09/01/18 07:50: Blood Gas Puncture Site ARTLINE, Blood Gas Patient Temperature 96.8, Arterial Blood pH 7.24*L, Arterial Blood Partial Pressure CO2 57H, Arterial Blood Partial Pressure O2 214H, Arterial Blood HCO3 24, Arterial Blood Total CO2 26.1 , Arterial Blood Oxygen Saturation 100, Arterial Blood Base Excess -2.3, Omi Test YES-POS, Blood Gas Ventilator Setting YES, Blood Gas Inspired Oxygen 100% Microbiology 08/31/18 Blood Culture - Preliminary, Resulted No growth 08/31/18 Urine Culture - Final, Complete NO GROWTH ECG Impression ECG Initial ECG Impression: Atrial Fibrillation w/RVR A/P-Cardiology Assessment/Admission Diagnosis Septic shock, Atrial fibrillation with rapid ventricular rate, Hemoptysis, CAD, History of liver transplant on immunosuppressive therapy. Plan Septic shock: IV fluids, inotropes. Broad-spectrum antibiotic. Respiratory failure with hypoxia: Defer to Dr. Blanco. Atrial fibrillation with rapid ventricular rate: Hold warfarin due to hemoptysis. Gradually increase rate controlling agents. Limited due to hypotension. CAD: Continue current therapy. Liver transplant on immunosuppressive therapy: Continue current therapy. Defer to ICU. Thank you for your consultation. Please call me if you have any questions. Sumaya Chapman MD, FACP, FACC, FSCAI, FHRS, CCDS Interventional Cardiology Cardiac Electrophysiology Vascular Medicine and Endovascular Interventions Clinical Quality Measures DVT/VTE Risk/Contraindication: Risk Factor Score Per Nursin RFS Level Per Nursing on Admit: 4+=Very High Alysa CHAPMAN MD Aug 31, 2018 16:54
[2018-08-31 16:57] LABS: ABG BASE EXCESS -1.1 MMOL/L (-2.5-2.5); ABG OXYGEN SATURATION 95 % (94-100); ABG PCO2 55 MMHG (35-45); ABG PO2 79 MMHG (79-93); ABG TCO2 26.7 MMOL/L (21.0-31.0)
[2018-08-31 17:03] LABS: ABG PH 7.27 (7.37-7.43); INSPIRED O2 35% 20L VAPOTHERM; PATIENT TEMP 97.7; VENTILATOR NO
[2018-08-31] MEDS ORDERED: NS (IVPB) 50 ML ONE (17:35)
[2018-08-31] MEDS: PIPERACILLIN SODIUM/TAZOBACTAM 4.5 GM in NS (IVPB) 100 ML IV SCH (17:49)
[2018-08-31] MEDS: DEXMEDETOMIDINE INJECTION 200 MCG in NS (IVPB) 50 ML IV SCH ×2 (17:56→22:08)
[2018-08-31] MEDS: inSUlin ASPART (NovoLOG) 1 UNIT/0.01 ML (CHARGE PER UNIT) SQ SCH (19:11)
[2018-08-31 20:13] LABS: ABG BASE EXCESS -2.6 MMOL/L (-2.5-2.5); ABG OXYGEN SATURATION 100 % (94-100); ABG PCO2 62 MMHG (35-45); ABG PO2 187 MMHG (79-93); ABG TCO2 26.2 MMOL/L (21.0-31.0)
[2018-08-31 20:16] LABS: ABG PH 7.21 (7.37-7.43); ALLENS TEST ARTLINE; INSPIRED O2 50% FIO2; VENTILATOR NO
[2018-08-31 20:17] LABS: PATIENT TEMP 98.2
[2018-09-01] VITALS (17 sets, daily range): BP systolic 11–141; BP diastolic 37–72
[2018-09-01] MEDS: inSUlin ASPART (NovoLOG) 1 UNIT/0.01 ML (CHARGE PER UNIT) SQ SCH ×2 (00:46→06:20)
[2018-09-01] MEDS: PIPERACILLIN SODIUM/TAZOBACTAM 4.5 GM in NS (IVPB) 100 ML IV SCH ×2 (00:47→09:26)
[2018-09-01] MEDS: LACTATED RINGERS 1,000 ML IV SCH ×2 (00:47→07:45)
[2018-09-01] MEDS: RT-ALBUTEROL/IPRATROPIUM 3 ML (DUONEB) VIAL INH SCH ×3 (02:25→10:06)
[2018-09-01 02:40] LABS: BASOPHILS % (AUTO) 0 % (0-10); EOSINOPHILS % (AUTO) 0 % (0-10); HEMATOCRIT 42 % (40-54); HEMOGLOBIN 13.5 G/DL (13.3-17.7); LYMPHOCYTES # (AUTO) 0.4 X 10^3 (1.0-4.0); LYMPHOCYTES % (AUTO) 1 % (12-44); MEAN CORPUSCULAR HEMOGLOBIN 25 PG (25-34); MEAN CORPUSCULAR HGB CONC 33 G/DL (32-36); MEAN CORPUSCULAR VOLUME 78 FL (80-99); MONOCYTES # (AUTO) 0.8 X 10^3 (0.0-1.0); MONOCYTES % (AUTO) 3 % (0-12); NEUTROPHILS % (AUTO) 96 % (42-75); PLATELET COUNT 250 10^3/uL (130-400); RED BLOOD COUNT 5.33 10^6/uL (4.35-5.85); RED CELL DISTRIBUTION WIDTH 18.6 % (10.0-14.5); WHITE BLOOD COUNT 29.3 10^3/uL (4.3-11.0)
[2018-09-01 02:46] LABS: ABG BASE EXCESS -2.2 MMOL/L (-2.5-2.5); ABG OXYGEN SATURATION 98 % (94-100); ABG PCO2 66 MMHG (35-45); ABG PO2 113 MMHG (79-93)
[2018-09-01 02:48] LABS: ALLENS TEST ARTLINE; INSPIRED O2 35; PATIENT TEMP 98.2; VENTILATOR NO
[2018-09-01 02:59] LABS: CALCIUM 8.5 MG/DL (8.5-10.1); CREATININE SERUM 2.27 MG/DL (0.60-1.30); MAGNESIUM 1.8 MG/DL (1.8-2.4); PHOSPHORUS 4.9 MG/DL (2.3-4.7)
[2018-09-01 03:25] LABS: BAND NEUTROPHILS 41 %; LYMPHOCYTES % (MANUAL) 3 %; MONOCYTES % (MANUAL) 1 %; NEUTROPHILS % (MANUAL) 55 %; POLYCHROMASIA SLIGHT
[2018-09-01 03:26] LABS: ELLIPT/OVALOCYTES SLIGHT; HYPOCHROMASIA MODERATE; MICROCYTOSIS MODERATE
[2018-09-01] MEDS ORDERED: PROPOFOL DRIP (ICU) 100 ML IV ONE (03:54)
[2018-09-01] MEDS ORDERED: PANTOPRAZOLE 40 MG (PROTONIX) VIAL IV SCH ×2 (04:27→09:00)
[2018-09-01] MEDS ORDERED: NS IV 1000 ML 1,000 ML ONE (04:28)
[2018-09-01] MEDS ORDERED: fentaNYL INJECTION 100 MCG/2 ML AMP IV PRN (04:30)
[2018-09-01] MEDS ORDERED: RT-epiNEPHrine (RACEMIC) 2.25% 0.5 ML VIAL INH ONE (04:30)
--- NOTE | 2018-09-01 04:45 | Pulmonary Progress Note ---
Subjective Time Seen by a Provider: 04:49 Subjective/Events-last exam Called to bedside by supervisor melt house secondary to worsening respiratory distress while on BiPAP. Pt has also developed stridor. Sepsis Event Evaluation Height, Weight, BMI Height: 6'0.00" Weight: 239lbs. 0.0oz. [id number]; 32.4 BMI Method:Stated Focused Exam Lactate Level 08/31/18 08:25: Lactic Acid Level 1.47 08/31/18 11:55: Lactic Acid Level 1.33 09/01/18 02:25: Lactic Acid Level 2.30*H Time of Focused Exam: 09:40 Lactic Acid Level Laboratory Tests Test 09/01/18 02:25 Lactic Acid Level 2.30 MMOL/L (0.50-2.00) *H Exam Exam Vital Signs Date Time Temp Pulse Resp B/P (MAP) Pulse Ox O2 Delivery O2 Flow Rate FiO2 09/01/18 03:00 109 14 115/56 (75) 99 NIV Bilevel 35.00 09/01/18 02:25 93 15 98 35.00 09/01/18 02:00 85 16 132/63 (86) 99 NIV Bilevel 35.00 09/01/18 01:00 106 09/01/18 01:00 105 23 126/60 (82) 99 NIV Bilevel 35.00 09/01/18 00:20 81 22 99 35.00 09/01/18 00:09 109 14 125/57 (79) 98 NIV Bilevel 35.00 09/01/18 00:00 NIV Bilevel 35 09/01/18 00:00 97.3 08/31/18 23:00 102 15 117/54 (75) 99 NIV Bilevel 35.00 08/31/18 22:00 91 13 127/56 (79) 99 NIV Bilevel 35.00 08/31/18 21:58 92 23 98 35.00 08/31/18 21:00 NIV Bilevel 35.00 08/31/18 21:00 81 14 133/58 (83) 99 NIV Bilevel 35.00 08/31/18 20:04 84 16 100 50.00 08/31/18 20:00 NIV Bilevel 35 08/31/18 20:00 70 13 99/54 (69) NIV Bilevel 50.00 10/18/18 20:00 98.2 08/31/18 19:00 68 13 111/51 (71) NIV Bilevel 50.00 08/31/18 19:00 84 08/31/18 18:44 76 16 100 50.00 08/31/18 18:00 90 12 140/63 (88) 94 NIV Bilevel 50.00 08/31/18 17:00 93 14 112/54 (73) 98 NIV Bilevel 50.00 08/31/18 16:53 97.7 08/31/18 16:00 87 22 107/52 (70) 96 Vapotherm 35.00 20.00 08/31/18 15:30 Vapotherm 10.00 45 08/31/18 15:29 98.1 08/31/18 15:00 91 13 111/58 (75) 98 Vapotherm 35.00 20.00 08/31/18 14:34 98 Vapotherm 10.00 45 08/31/18 14:00 84 13 116/63 (80) 98 Vapotherm 45.00 10.00 08/31/18 13:00 87 16 98 OxyMask 10.00 08/31/18 13:00 93 08/31/18 12:20 97.6 08/31/18 12:00 96 14 96/67 (77) 98 OxyMask 10.00 08/31/18 12:00 OxyMask 10.00 08/31/18 11:18 100.4 08/31/18 11:02 113 16 90/42 (58) 97 OxyMask 10.00 08/31/18 10:45 OxyMask 10.00 08/31/18 10:45 99.1 08/31/18 10:45 98.8 96 22 83/51 (62) 98 OxyMask 10.00 08/31/18 10:30 98.8 114 20 83/51 97 OxyMask 10.00 08/31/18 08:50 178 24 118/65 95 NIV/Bilevel 10.00 08/31/18 08:40 167 19 95 50.00 08/31/18 08:31 100 OxyMask 6.00 08/31/18 08:30 101.2 08/31/18 08:12 98 OxyMask 10.00 08/31/18 08:10 102.1 165 28 126/89 (101) 97 OxyMask 10.00 I & O 09/01/18 07:00 Intake Total 1620 ml Output Total 845 ml Balance 775 ml Height & Weight Height: 6'0.00" Weight: 239lbs. 0.0oz. [id number]; 32.4 BMI Method:Stated General Appearance: WD/WN, Severe Distress HEENT: PERRL/EOMI, Normal ENT Inspection Neck: Normal Inspection Respiratory: Lungs Clear, Decreased Breath Sounds, Other (On BiPAP) Cardiovascular: No Edema, No Murmur, Normal Peripheral Pulses, Irregularly Irregular Capillary Refill: Less Than 3 Seconds Extremity: Normal Capillary Refill, Normal Inspection, No Pedal Edema Neurologic/Psychiatric: Alert, Oriented x3, No Motor/Sensory Deficits, Normal Mood/Affect, pickle maker II-XII Norm as Tested, Other (mentation dulled. Tremoring or shivering with involuntary jerks) Results Lab Laboratory Tests 08/31/18 08:25 09/01/18 02:25 Assessment/Plan Assessment/Plan Acute respiratory failure - now worsening -Currently requiring BiPAP -Called emergently by ICU supervisor melt house secondary to patient having stridor and worsening respiratory distress. -CXR appears worse -Oxygen Severe Sepsis with iatrogenic immunodiff -Continue Vancomycin, and Zosyn -[place] cultures pending Hemoptysis -I will do bedside bronchoscopy this AM. -repeat pt, ptt, inr -coumadin is on hold. may need to give FFP Afib rvr -Coumadin is on hold -cardizem gtt Septic shock with hypotension -IVF -Start Solucortef Coumadin coagulopathy with hemoptysis -Hold Coumadin Will obtain PICC line UPDATE: I called and explained how patient was doing after intubation and bedside bronchoscopy. I explained to her how I recommend pt to be transferred to secondary to his complex medical status and hx of liver transplant. I answered all of her questions and she agrees with transfer. Pt was just recently transferred to secondary to similar issues. I have also touched base with transfer line and gave all information to RN. They are going to discuss with their ICU team and call me back. Total time spent with patient not including procedures is 120min. Critical Care: Critically Ill Patient Time spent with patient (mins): 120 POOL RECIO DO Sep 01, 2018 04:45
--- NOTE | 2018-09-01 04:55 | Pulmonary Procedures ---
Pulmonary Procedures Date of Procedure Date of Service: Sep 01, 2018 Reason for Intubation: Acute worsening respiratory distress Time of Intubation: 04:51 Intubation Method: orotracheal (Glidoscope was used for intubation. ) Tube Size: 8 Medications: Propofol, Versed Positive End Tide CO2: Yes Breath Sounds after Intubation: bilateral-equal Intubation Complications: no complications Post Intubation Xray: Yes Progress/Xray Impression: ET tube 2.7cm above POOL Hanson DO Sep 01, 2018 04:55
[2018-09-01] MEDS: PROPOFOL DRIP (ICU) 100 ML IV SCH ×2 (05:46→07:46)
[2018-09-01] MEDS: DEXMEDETOMIDINE INJECTION 200 MCG in NS (IVPB) 50 ML IV SCH ×2 (05:48→08:10)
[2018-09-01] MEDS ORDERED: POTASSIUM CL 10MEQ/50ML IVPB 50 ML IV SCH (06:00)
[2018-09-01] MEDS ORDERED: KCL 20 MEQ TAB (K-DUR) PO SCH (06:00)
[2018-09-01] MEDS ORDERED: MAGNESIUM 1 GM/100 ML IVPB 100 ML IV SCH (06:00)
[2018-09-01] MEDS: CATHETER FLUSH 10 ML SYR IV SCH (06:20)
[2018-09-01] MEDS: HYDROCORTISONE 100 MG/2 ML (Solu-CORTEF) VIAL IV SCH (06:21)
--- NOTE | 2018-09-01 06:53 | Diagnostic Imaging Report ---
INDICATION: Shortness of breath. Portable chest 4:48 AM FINDINGS: There is an ET tube projecting over the trachea. NG tube enters the stomach. Right upper extremity PICC line tip projects over the SVC. There are postop changes from CABG surgery. There is pulmonary vascular congestion. Lungs are clear. IMPRESSION: Postop changes in the chest with pulmonary venous hypertension that is unchanged from previous day. Dictated by: Dictated on workstation # [id number]
--- NOTE | 2018-09-01 07:04 | Pulmonary Procedures ---
Pulmonary Procedures Date of Procedure Date of Service: Sep 01, 2018 Bronch Bronchoscopy with bronchoalveolar lavage (BAL), transbronchial washes and, brushes of RML . Preop DX pneumonia and hemoptysis Postop DX: No sign of pulmonary hemorrhage. Complications: none After informed consent obtained and formal time out pt was sedated using propofol and Versed. Bronchoscope was advanced through the ET tube . An anatomical tour was undertaken down to the segmental bronchi bilaterally. No endobronchial lesions noted. From the RML a bronchoalveolar lavage (BAL), transbronchial washes and, brushes were obtained. Pt tolerated procedure well. No sign of pulmonary hemorrhage. No complications noted. Stat CXR is pending. POOL RECIO DO Sep 01, 2018 07:04
[2018-09-01 07:20] LABS: BILIRUBIN,TOTAL 1.2 MG/DL (0.1-1.0); CALCIUM 8.4 MG/DL (8.5-10.1); CREATININE SERUM 2.17 MG/DL (0.60-1.30); POTASSIUM 4.7 MMOL/L (3.6-5.0); TOTAL PROTEIN 5.1 GM/DL (6.4-8.2)
[2018-09-01] MEDS ORDERED: MIDAZOLAM 5 MG/5 ML (VERSED) VIAL IVP ONE (07:24)
[2018-09-01] MEDS ORDERED: SUCCINYLCHOLINE INJ 100 MG/5 ML SYR INJ ONE (07:24)
--- NOTE | 2018-09-01 07:36 | Diagnostic Imaging Report ---
INDICATION: Respiratory failure Portable chest 6:10 AM There is an ET tube projecting over the trachea. NG tube enters the stomach. Right upper extremity PICC line tip projects over the SVC. There are postop changes from CABG surgery. There is cardiomegaly with pulmonary vascular congestion. IMPRESSION: Congestive heart failure. Dictated by: Dictated on workstation # [id number]
[2018-09-01 07:40] LABS: INR 8.2 (0.8-1.4); PROTHROMBIN TIME PATIENT 69.1 SEC (12.2-14.7)
[2018-09-01] MEDS: NOREPINEPHRINE 4 MG in NS (IVPB) 250 ML IV SCH (07:47)
[2018-09-01] MEDS ORDERED: VITAMIN K 1 MG/ML ORAL SOLN 1 ML SYRINGE PO NR (07:55)
[2018-09-01 07:59] LABS: ABG BASE EXCESS -2.3 MMOL/L (-2.5-2.5); ABG OXYGEN SATURATION 100 % (94-100); ABG PCO2 57 MMHG (35-45); ABG PO2 214 MMHG (79-93); ABG TCO2 26.1 MMOL/L (21.0-31.0)
[2018-09-01 08:01] LABS: ABG PH 7.24 (7.37-7.43); ALLENS TEST YES-POS; INSPIRED O2 100%; PATIENT TEMP 96.8; VENTILATOR YES
[2018-09-01] MEDS ORDERED: CHLORHEXIDINE 0.12% SOLN 15 ML (PERIDEX) UDC PO SCH (09:00)
--- NOTE | 2018-09-01 10:53 | Physical Therapy Progress Note ---
Therapy Progress Note Patient currently on ventilator and transferring to [facility]. JUAN WELLS PT Sep 01, 2018 10:53
[2018-09-01] MEDS ORDERED: VANCOMYCIN 1500 MG/NS 500 ML IVPB IV SCH ×2 (12:30)
[2018-09-02] MEDS ORDERED: TROUGH ORDER-PHARMACY XX NR (11:30)
== END 2018-09-01 11:11 | disposition short-term general hospital (02) | DRG 871 ==
LOC: EDUNIT# 08:06 → ER 08:07 → ICU 09:24
PROVIDERS: ADMIT Internal Medicine Critical Care Medicine; ATTEND Internal Medicine Critical Care Medicine
PROC: 5A1935Z Respiratory Ventilation, Less than 24 Consecutive Hours (ICD-10-PCS; principal; 2018-09-01)
PROC: 0B9D8ZX Drainage of Right Middle Lung Lobe, Via Natural or Artificial Opening Endoscopic, Diagnostic (ICD-10-PCS; 2018-09-01)
PROC: 0BD58ZX Extraction of Right Middle Lobe Bronchus, Via Natural or Artificial Opening Endoscopic, Diagnostic (ICD-10-PCS; 2018-09-01)
DX: A41.9 Sepsis, unspecified organism (principal); R65.21 Severe sepsis with septic shock; J96.01 Acute respiratory failure with hypoxia; N17.9 Acute kidney failure, unspecified; Z94.4 Liver transplant status; J18.9 Pneumonia, unspecified organism; R04.2 Hemoptysis; I12.9 Hypertensive chronic kidney disease with stage 1 through stage 4 chronic kidney disease, or unspecified chronic kidney disease; N18.9 Chronic kidney disease, unspecified; I48.91 Unspecified atrial fibrillation; I25.10 Atherosclerotic heart disease of native coronary artery without angina pectoris; M10.9 Gout, unspecified; E11.40 Type 2 diabetes mellitus with diabetic neuropathy, unspecified; E78.00 Pure hypercholesterolemia, unspecified; M54.9 Dorsalgia, unspecified; Z79.899 Other long term (current) drug therapy; R79.1 Abnormal coagulation profile; Z79.01 Long term (current) use of anticoagulants; Z79.4 Long term (current) use of insulin; Z95.1 Presence of aortocoronary bypass graft; Z95.5 Presence of coronary angioplasty implant and graft; Z87.891 Personal history of nicotine dependence
CPT/HCPCS: 36415; 36569; 71045; 76937; 80048; 80053; 81000; 82140; 82805; 82962; 83605; 83735; 83880; 84100; 84478; 84484; 85007; 85027; 85610; 85730; 86141; 87040; 87070; 87077; 87088; 87101; 87106; 87116; 87186; 87205; 87804; 88112; 88305; 93005; 94002; 94640; 94660; 94799; 96361; 96365

== ENCOUNTER 2018-10-30 10:28 | Outpatient (CLI) | payer MEDICARE ==
[~2018-10-30] VITALS: Ht 182.9 cm; Wt 108.4 kg
[~2018-10-30 10:28] MED LIST changes: +ACET-2267 PO; +DICL100G18 TP; +DOCU-143 PO; +INDO50CA11 PO; +LD5O35 TP; +OMEP20CA12 PO; +OXYC10TA7 PO; +PREG150C PO; +SPIR25TA PO; +TRIA15CR TP
[2018-10-30] MEDS ORDERED: IRON DEXTRAN 1,000 MG/NS 250 ML IVPB IV ONE ×2 (11:00)
[2018-10-30] MEDS ORDERED: IRON DEXTRAN 25 MG/NS 6.25 ML TOTAL VOLUME IV ONE ×3 (11:00)
[2018-10-30 13:35] VITALS: BP 109/61
== END 2018-10-30 13:35 | disposition home or self-care (01) ==
LOC: SDC 10:28
PROVIDERS: ATTEND Internal Medicine
DX: D50.9 Iron deficiency anemia, unspecified (principal)
CPT/HCPCS: 96365

== ENCOUNTER → 2018-11-16 | Outpatient (CLI) | payer MEDICARE ==
[~2018-11-16] MED LIST changes: +ESZO2TAB31; +WARF5TAB8
--- NOTE | 2018-11-16 15:34 | Diagnostic Imaging Report ---
INDICATION: Fall with injury to head and altered mental status. Noncontrast brain CT is performed. There is comparison with 11/05/2010. There are mild diffuse atrophic changes. There are patchy low-density changes in the deep white matter compatible with chronic ischemic change. There is no subdural or epidural collection. There is no acute intracranial hemorrhage. Calvarial windows are unremarkable. IMPRESSION: Atrophic changes and chronic ischemic changes in deep white matter. No acute hemorrhage, mass effect, or subdural collection. Dictated by: Dictated on workstation # [id number]
== END ==
LOC: RAD 15:11
PROVIDERS: ATTEND Internal Medicine
DX: S06.890A Other specified intracranial injury without loss of consciousness, initial encounter (principal); G31.9 Degenerative disease of nervous system, unspecified; W19.XXXA Unspecified fall, initial encounter
CPT/HCPCS: 70450

== ENCOUNTER 2018-11-18 05:13 | Inpatient (IN) | payer MEDICARE ==
[2018-11-18] VITALS (20 sets, daily range): BP systolic 87–138; BP diastolic 53–92
[~2018-11-18] VITALS: Ht 182.9 cm; Wt 113.5 kg
[~2018-11-18 05:13] MED LIST changes: -ESZO2TAB31; -WARF5TAB8
[2018-11-18] MEDS ORDERED: NS IV 1000 ML 1,000 ML ONE (05:18)
--- OUTSIDE RECORDS SUMMARY | 2018-11-18 05:22 | XMS REPORT | Encounter Summary ---
Author Author [facility] Organization [facility] Address Unknown Phone Unavailable Care Team Providers Care Wood Machinist Apprentice Name Role Phone Jamie Sanders MD PCP [...] Unavailable Cuba Li MD Unavailable Encounter Details Care Team Description Date Type Department Mila Santiago RN 09/11/2018 Telephone Case Management - Social Work [address] [place] [address]. [place] [address] Social History Date Tobacco Use Types Packs/Day Years Used Former Smoker Cigarettes 1 40 Smokeless Tobacco: Never Used Comments: quit in 1999 Alcohol Use Drinks/Week oz/Week Comments No Sex Assigned at Date Recorded Not on file Industry Job Start Date Occupation Not on file Not on file Not on file Travel End Travel History Travel Start No recent travel history available. as of this encounter Functional Status Date of Assessment Functional Status Response 09/04/2018 Does the patient have a hearing impairment: No 08/21/2018 Does the patient have a visual impairment: Yes 08/21/2018 Does the patient have impaired ambulation: No 08/21/2018 Does the patient have an activity of daily living No (ADL) impairment: 08/21/2018 Does the patient have an instrumental activity of No daily living (IADL) impairment: Date of Assessment Cognitive Status Response 08/21/2018 Does the patient have a cognitive impairment: No as of this encounter Plan of Treatment Not on fileas of this encounter Goals Goal Patient Associated Recent Progress Patient-Stat Author Goal Type Problems ed? HEMOGLOBIN A1C < 7.0 Result 6.8 (09/07/2018 No Laureen, Component 3:35 AM CDT) KILEY Mcintosh as of this encounter Visit Diagnoses Not on filein this encounter
--- OUTSIDE RECORDS SUMMARY | 2018-11-18 05:22 | XMS REPORT | Encounter Summary ---
Author Author [facility] Organization [facility] Address Unknown Phone Unavailable Care Team Providers Care [employer] Police Officer Name Role Phone Jamie Sanders MD PCP [...] Details Care Team Description Date Type Department Bernard Negron Liver replaced by transplant (HCC) 11/17/2018 Orders Only [facility] 1st FLOOR [address] [facility] [place] [address] Social History Date Tobacco Use Types Packs/Day [...] A1C < 7.0 Result 6.8 (09/07/2018 No [place], Component 3:35 AM CDT) KILEY Mcintosh as of this encounter Visit Diagnoses Diagnosis Liver replaced by transplant (HCC) Liver replaced by transplant in this encounter
--- OUTSIDE RECORDS SUMMARY | 2018-11-18 05:22 | XMS REPORT | Encounter Summary ---
Author Author [facility] Organization [facility] Address Unknown Phone Unavailable Care Team Providers Care Brush Maker Name Role Phone Jamie Sanders MD PCP [...] Details Care Team Description Date Type Department Mattie Callaway BSN Vitamin D deficiency (Primary Dx) 11/15/2018 Orders Only [facility] 1st FLOOR [address] [facility],[place] [address] Social History Date Tobacco Use Types Packs/Day [...] as of this encounter Plan of Treatment Order Schedule Name Priority Associated Diagnoses Expected: 11/15/2018 (Approximate), Expires: 11/15/2019 25-OH VITAMIN D (D2 + D3) Routine Vitamin D deficiency as of this encounter Goals Goal Patient Associated Recent Progress Patient-Stat Author Goal Type Problems ed? HEMOGLOBIN A1C < 7.0 Result 6.8 (09/07/2018 No Laureen, Component 3:35 AM CDT) KILEY Mcintosh as of this encounter Visit Diagnoses Diagnosis Vitamin D deficiency - Primary Unspecified vitamin D deficiency in this encounter
--- OUTSIDE RECORDS SUMMARY | 2018-11-18 05:22 | XMS REPORT | Clinical Summary ---
Author Author [facility] Organization [facility] Address Unknown Phone Unavailable Care Team Providers Care [employer] Administrative Assistant Name Role Phone Jamie Sanders [...] DO Unavailable Mattie Callaway BSN Unavailable Unavailable Bull Roya Unavailable Unavailable Batsheva [...] in the Health Information Management department at [phone] for further assistance in locating additional records.[facility] Allergies Comments Active Allergy Reactions Severity Noted Date Meperidine HIVES, 03/02/2010 SWELLING Morphine ANAPHYLAXIS 03/02/2010 Medications End Date Status Medication Sig Dispensed Refills Start Date Active Cholecalciferol (Vitamin Take 1 Cap by 60 Cap 3 D3) 1,000 unit PO Cap mouth Twice 1 Daily. Active allopurinol (ZYLOPRIM) Take 100 mg 0 100 mg tablet by mouth daily. Active Docusate Calcium 50 mg Take 100 mg 0 cap by mouth at bedtime daily. Active rOPINIRole (REQUIP) 1 mg Take 1 mg by 0 tablet mouth twice daily. Active insulin aspart (NOVOLOG) Inject 9 75 mL 3 100 unit/mL units with 4 flexPENIndications: Type breakfast, 9 II or unspecified type units with diabetes mellitus without lunch, and 11 mention of complication, units with not stated as dinner. Plus uncontrolled 2 for every 40 >140 Max 80. Active other medication 1 Dose. CHAZ 0 COMFORT get for feet. Active blood sugar diagnostic Use 1 Strip 0 (GLUCOSE METER TEST as directed STRIP) test strip three times daily. accuchek wild Active Blood-Glucose Meter Accuchek 1 Kit 0 kitIndications: Diabetes WILD METER 7 mellitus without complication (HCC) Active senna/docusate Take 1 tablet 0 (SENOKOT-S) 8.6/50 mg by mouth tablet daily. Active ursodiol (RANJIT) 250 mg Take 1 tablet 60 tablet 3 tablet by mouth 8 twice daily with meals. Active lisinopril (PRINIVIL; Take 1 tablet 90 tablet 3 ZESTRIL) 5 mg tablet by mouth 8 daily. Active pregabalin (LYRICA) 150 Take 150 mg 0 mg capsule by mouth twice daily. Active warfarin (COUMADIN) 5 mg Take 1 tablet 90 tablet 3 tablet by mouth as 8 directed. Take 5 mg by mouth five times weekly on Tuesday, Tuesday, Tuesday, , Tuesday. Take in the evening. Active diclofenac(+) (VOLTAREN) Apply 4 g 0 1 % topical gel topically to affected area twice daily. Active lidocaine 5 % oint Apply 0 topical ointment topically to affected area three times daily. Active Trolamine Salicylate 10 % Apply 0 crea topically to affected area twice daily as needed. Active omeprazole DR(+) Take 40 mg by 0 (PRILOSEC) 40 mg capsule mouth daily before breakfast. Active warfarin (COUMADIN) 2.5 Take three 90 tablet 3 09/07/201 mg tablet tablets by 8 mouth as directed. Take 2.5 mg by mouth two times weekly on Tuesday & Tuesday. Take in the evening. Active atorvastatin (LIPITOR) 40 Take one 30 tablet 0 09/07/201 mg tablet tablet by 8 mouth at bedtime daily. Active metoprolol XL (TOPROL XL) Take one 30 tablet 0 100 mg extended release tablet by 8 tablet mouth daily. Active tacrolimus (PROGRAF) 0.5 Take one 60 capsule 0 09/07/201 mg capsule capsule by 8 mouth twice daily. Active furosemide (LASIX) 40 mg Take two 0 tablet tablets by 8 mouth twice daily. After having your labs checked, your doctors may increase your dose back to 120 mg by mouth once daily Active spironolactone Take one 90 tablet 3 (ALDACTONE) 25 mg tablet tablet by 8 mouth daily. Take with food. Active insulin detemir(+) 20 U pm plus 4 box 3 (LEVEMIR FLEXTOUCH) 100 2 units to 8 unit/mL (3 mL) injection prime pen penIndications: each time. Controlled type 2 diabetes mellitus with diabetic nephropathy, with long-term current use of insulin ([facility]) 11/17/2018 ergocalciferol (VITAMIN Take one 12 capsule 0 10/18/201 D-2) 50,000 unit capsule capsule by 8 mouth every 7 days for 12 doses. Active Problems Problem Noted Date Delirium 09/02/2018 Shaking spells 12/17/2015 HTN (hypertension) 11/21/2012 Last [...] Biliary stent obstruction 03/15/2011 CMV (cytomegalovirus infection) 01/31/2011 Atrial fibrillation 01/31/2011 Status post liver transplant 12/03/2010 Liver failure 12/02/2010 GI bleeding 04/02/2010 CKD (chronic kidney disease) 04/02/2010 Pancytopenia 04/02/2010 Coronary artery bypass surgery 04/01/2010 CAD (coronary artery disease) 04/01/2010 Hyperlipidemia with target LDL less than 70 04/01/2010 Last Assessment & Plan: No recent FLP in system. Per PCP? [...] No range found 146 DM (diabetes mellitus) 04/01/2010 Last Assessment & Plan: He stopped Lantus because it burned too bad when he injected. He is willing to try Levemir if [place] will pay for it. Also, increase Novolog meal base. POC: NPH 34 in am or 14 at bedtime OR Levemir 30 in the am and 12 at bedtime Novolog 9 U + correction scale 3x/day immediately after you finish eating Resolved Problems Problem Noted Date Resolved Date Atrial fibrillation with rapid ventricular response 09/02/2018 09/07/2018 Acute respiratory failure with hypoxia and hypercapnia 09/01/20182017 Shock 09/01/2018 09/07/2018 Hemoptysis 09/01/2018 09/07/2018 Acute on chronic systolic heart failure 09/01/2018 09/07/2018 Supratherapeutic INR 09/01/2018 09/07/2018 Pneumonia 02/17/2018 09/07/2018 Septic shock 02/17/2018 09/07/2018 Acute hypoxemic respiratory failure 02/17/2018 02/20/2018 Acute on chronic renal insufficiency 02/17/2018 02/20/2018 Sepsis(995.91) 01/31/2011 10/29/2014 PRADO (nonalcoholic steatohepatitis) 04/01/2010 11/21/2012 Encounters Care Team Description Date Type Specialty Bernard Negron Liver replaced by transplant (HCC) 11/17/2018 Orders Only Transplant Surgery Mattie aCllaway BSN Vitamin D deficiency (Primary Dx) 11/15/2018 Orders Only Transplant Surgery Mila Santiago, RN 09/11/2018 Telephone Deepali Byrne MD Hall, Chase, MD Satterwhite, Lewis, MD Status post liver transplant (HCC) 09/01/2018 Hospital Intensive Care - Encounter 09/07/2018 09/01/2018 Hospital Radiology Encounter 09/01/2018 Hospital Radiology Encounter 08/31/2018 Hospital Radiology Encounter 08/31/2018 Hospital Radiology Encounter Mattie Callaway BSN Medication Dose Change 08/31/2018 Telephone Transplant Surgery Mattie Callaway BSN Medication Dose Change 08/30/2018 Telephone Transplant Surgery Valdemar Phillips MD 08/25/2018 Documentation Transplant Surgery Valdemar Phillips MD Anemia, unspecified type (Primary Dx); Status post liver transplant (HCC) 08/21/2018 Office Visit Transplant Surgery Valdemar Phillips MD Liver transplant status (HCC) 08/21/2018 Hospital Lab Encounter from Last 3 Months Immunizations Name Dates [...] Alive Sister Alive Sister Alive Social History Date Tobacco Use Types Packs/Day [...] Travel Start No recent travel history available. Last Filed Vital Signs Time Taken Vital Sign Reading 09/07/2018 12:00 PM CDT Blood Pressure 138/70 09/07/2018 1:00 PM CDT Pulse 123 09/07/2018 12:00 PM CDT Temperature 36.8 C (98.2 F) 08/21/2018 12:28 PM CDT Respiratory Rate 18 09/07/2018 1:00 PM CDT Oxygen Saturation 94% - Inhaled Oxygen - Concentration 09/06/2018 11:54 AM CDT Weight 115.7 kg (255 lb) 09/06/2018 11:54 AM CDT Height 182.9 cm (6') 09/06/2018 11:54 AM CDT Body Mass Index 34.58 Plan of Treatment Health Maintenance Due Date Last Done Comments SHINGLES RECOMBINANT 1995 VACCINE (1 of 2) ABDOMINAL AORTIC ANEURYSM 2010 SCREENING PNEUMONIA (PCV13/PPSV23) 2010 VACCINES (1 of 2 - PCV13) PHYSICAL (COMPREHENSIVE) 08/28/2015 08/28/2014 (Previously completed), EXAM 12/09/2010 DILATED EYE EXAM 03/14/2017 03/14/2016, 01/13/2016, 11/28/2013 (Previously completed) FOOT EXAM 03/04/2018 03/04/2017, 03/04/2017, 09/06/2016, Additional history exists HBA1C 03/08/2019 09/07/2018, 03/04/2017, 09/06/2016, Additional history exists DTAP/TDAP VACCINES (2 - 07/02/2020 07/02/2010 Td) COLORECTAL CANCER 11/08/2020 11/08/2010 SCREENING HEPATITIS C SCREENING Completed 03/30/2010, 03/30/2010, 01/01/2010, Additional history exists INFLUENZA VACCINE Completed 08/21/2018, 08/14/2015 Goals Goal Patient Associated Recent Progress Patient-Stat Author Goal Type Problems ed? HEMOGLOBIN A1C < 7.0 Result 6.8 (09/07/2018 No [place], Component 3:35 AM CDT) KILEY Mcintosh Procedures Comments Procedure Name Priority Date/Time Associated Diagnosis ECG-SCAN 09/19/2018 5:30 PM MILITARY PAY CLERK ECG-SCAN 09/10/2018 3:55 PM CDT TELEMETRY STRIPS-SCAN 09/08/2018 12:37 PM CDT POC GLUCOSE 09/07/2018 12:36 PM CDT PHOSPHORUS STAT 09/07/2018 8:48 AM CDT MAGNESIUM STAT 09/07/2018 8:48 AM CDT COMPREHENSIVE METABOLIC STAT 09/07/2018 PANEL 8:48 AM CDT CBC AND DIFF STAT 09/07/2018 8:48 AM CDT BNP (B-TYPE NATRIURETIC Routine 09/07/2018 PEPTI) 8:48 AM CDT POC GLUCOSE 09/07/2018 8:16 AM CDT POC GLUCOSE 09/07/2018 3:38 AM CDT PROTIME INR (PT) Routine 09/07/2018 3:35 AM CDT HEMOGLOBIN A1C STAT 09/07/2018 3:35 AM CDT POC GLUCOSE 09/06/2018 9:37 PM CDT POC GLUCOSE 09/06/2018 5:48 PM CDT POC GLUCOSE 09/06/2018 2:09 PM CDT LIMITED ECHOCARDIOGRAM Routine 09/06/2018 12:13 PM CDT POC GLUCOSE 09/06/2018 9:15 AM CDT TACROLIMUS LEVEL(FK506) STAT 09/06/2018 9:07 AM CDT POC GLUCOSE 09/06/2018 3:52 AM CDT PHOSPHORUS Routine 09/06/2018 3:50 AM CDT MAGNESIUM Routine 09/06/2018 3:50 AM CDT COMPREHENSIVE METABOLIC Routine 09/06/2018 PANEL 3:50 AM CDT PROTIME INR (PT) Routine 09/06/2018 3:50 AM CDT CBC AND DIFF Routine 09/06/2018 3:50 AM CDT POC GLUCOSE 09/05/2018 9:25 PM CDT POC GLUCOSE 09/05/2018 3:59 PM CDT SWALLOW MOTION SERIES Routine 09/05/2018 1:53 PM CDT POC GLUCOSE 09/05/2018 11:53 AM CDT POC GLUCOSE 09/05/2018 8:45 AM CDT POC GLUCOSE 09/05/2018 3:11 AM CDT TACROLIMUS LEVEL(FK506) STAT 09/05/2018 3:11 AM CDT PHOSPHORUS Routine 09/05/2018 3:11 AM CDT MAGNESIUM Routine 09/05/2018 3:11 AM CDT COMPREHENSIVE METABOLIC Routine 09/05/2018 PANEL 3:11 AM CDT PROTIME INR (PT) Routine 09/05/2018 3:11 AM CDT CBC AND DIFF Routine 09/05/2018 3:11 AM CDT POC GLUCOSE 09/04/2018 8:32 PM CDT POC GLUCOSE 09/04/2018 5:23 PM CDT POC GLUCOSE 09/04/2018 11:51 AM CDT POC GLUCOSE 09/04/2018 8:12 AM CDT POC GLUCOSE 09/04/2018 3:28 AM CDT TACROLIMUS LEVEL(FK506) STAT 09/04/2018 3:28 AM CDT PROTIME INR (PT) Routine 09/04/2018 3:28 AM CDT CBC AND DIFF Routine 09/04/2018 3:28 AM CDT PHOSPHORUS Routine 09/04/2018 1:15 AM CDT MAGNESIUM Routine 09/04/2018 1:15 AM CDT COMPREHENSIVE METABOLIC Routine 09/04/2018 PANEL 1:15 AM CDT POC GLUCOSE 09/03/2018 8:13 PM CDT POC GLUCOSE 09/03/2018 2:22 PM CDT POC GLUCOSE 09/03/2018 12:35 PM CDT POC GLUCOSE 09/03/2018 9:40 AM CDT TACROLIMUS LEVEL(FK506) STAT 09/03/2018 8:40 AM CDT POC GLUCOSE 09/03/2018 8:39 AM CDT TROPONIN-I STAT 09/03/2018 6:44 AM CDT POC GLUCOSE 09/03/2018 2:36 AM CDT PHOSPHORUS Routine 09/03/2018 2:35 AM CDT MAGNESIUM Routine 09/03/2018 2:35 AM CDT COMPREHENSIVE METABOLIC Routine 09/03/2018 PANEL 2:35 AM CDT PROTIME INR (PT) Routine 09/03/2018 2:35 AM CDT CBC AND DIFF Routine 09/03/2018 2:35 AM CDT TROPONIN-I STAT 09/03/2018 1:05 AM CDT POC GLUCOSE 09/02/2018 8:52 PM CDT TROPONIN-I STAT 09/02/2018 7:00 PM CDT HISTOPLASMA AG-URINE Routine 09/02/2018 RANDOM 6:45 PM CDT POC GLUCOSE 09/02/2018 4:14 PM CDT POC GLUCOSE 09/02/2018 12:57 PM CDT TACROLIMUS LEVEL(FK506) STAT 09/02/2018 9:09 AM CDT POC GLUCOSE 09/02/2018 8:39 AM CDT ABDOMEN AP ONLY Routine 09/02/2018 4:45 AM CDT BLOOD GASES, ARTERIAL Routine 09/02/2018 2:38 AM CDT PHOSPHORUS Routine 09/02/2018 2:38 AM CDT MAGNESIUM Routine 09/02/2018 2:38 AM CDT COMPREHENSIVE METABOLIC Routine 09/02/2018 PANEL 2:38 AM CDT PROTIME INR (PT) Routine 09/02/2018 2:38 AM CDT CBC AND DIFF Routine 09/02/2018 2:38 AM CDT TROPONIN-I STAT 09/02/2018 2:38 AM CDT POC GLUCOSE 09/02/2018 2:36 AM CDT POC GLUCOSE 09/02/2018 12:37 AM CDT TROPONIN-I STAT 09/01/2018 7:[address] CHEST WO CONTRAST STAT 09/01/2018 6:[address] HEAD WO CONTRAST STAT 09/01/2018 6:49 PM CDT TRANSFUSE PLASMA (FFP) Routine 09/01/2018 5:27 PM CDT 2-D + DOPPLER TYRONE 09/01/2018 ECHOCARDIOGRAM 4:58 PM CDT FLOW CYTOMETRY 09/01/2018 4:06 PM CDT LEUKEMIA/LYMPHOMA PANEL Routine 09/01/2018 FLUID/TISSUE 4:06 PM CDT CELL COUNT W/DIFF-FLUIDS Routine 09/01/2018 4:06 PM CDT RVP VIRAL PANEL PCR Routine 09/01/2018 4:06 PM CDT PJP JIROVECI QUANT PCR Routine 09/01/2018 4:06 PM CDT ASPERGILLUS GALACTOMANN Routine 09/01/2018 4:06 PM CDT HERPES SIMPLEX PCR - Routine 09/01/2018 NON-BLOOD 4:06 PM CDT CMV QUANT PCR-FLUID Routine 09/01/2018 4:06 PM CDT GRAM STAIN 09/01/2018 4:06 PM CDT CULTURE-FUNGAL,OTHER Routine 09/01/2018 4:06 PM CDT CULTURE-TB (AFB) Routine 09/01/2018 4:06 PM CDT CULTURE-RESP,LOWER Routine 09/01/2018 W/SENSITIVITY 4:06 PM CDT BLOOD GASES, ARTERIAL Routine 09/01/2018 3:33 PM CDT PREPARE PLASMA (FFP) Routine 09/01/2018 3:14 PM CDT BLOOD GASES, CENTRAL Routine 09/01/2018 VENOUS 2:35 PM CDT TEG WITH KAOLIN Routine 09/01/2018 2:26 PM CDT CULTURE-BLOOD Routine 09/01/2018 W/SENSITIVITY 2:26 PM CDT CULTURE-BLOOD Routine 09/01/2018 W/SENSITIVITY 2:23 PM CDT RVP VIRAL PANEL PCR Routine 09/01/2018 2:11 PM CDT CHEST SINGLE VIEW Routine 09/01/2018 1:50 PM CDT POC GLUCOSE 09/01/2018 1:48 PM CDT TYPE & CROSSMATCH Routine 09/01/2018 1:45 PM CDT CMV QUANT PCR-BLOOD Add on 09/01/2018 1:45 PM CDT VANCOMYCIN TIMED LEVEL Add on 09/01/2018 1:45 PM CDT TSH WITH FREE T4 REFLEX 09/01/2018 1:45 PM CDT TROPONIN-I 09/01/2018 1:45 PM CDT PROCALCITONIN 09/01/2018 1:45 PM CDT PHOSPHORUS 09/01/2018 1:45 PM CDT MAGNESIUM 09/01/2018 1:45 PM CDT LDH-LACTATE DEHYDROGENASE 09/01/2018 1:45 PM CDT COMPREHENSIVE METABOLIC 09/01/2018 PANEL 1:45 PM CDT PERIPHERAL SMEAR STAT 09/01/2018 1:45 PM CDT FIBRINOGEN STAT 09/01/2018 1:45 PM CDT ASPERGILLUS STAT 09/01/2018 (GALACTOMANNAN) AG 1:45 PM CDT FUNGITELL STAT 09/01/2018 1:45 PM CDT TACROLIMUS LEVEL(FK506) STAT 09/01/2018 1:45 PM CDT BNP (B-TYPE NATRIURETIC Routine 09/01/2018 PEPTI) 1:45 PM CDT IONIZED CALCIUM Routine 09/01/2018 1:45 PM CDT LACTIC ACID (BG - RAPID Routine 09/01/2018 LACTATE) 1:45 PM CDT BLOOD GASES, ARTERIAL STAT 09/01/2018 1:45 PM CDT PROTIME INR (PT) Routine 09/01/2018 1:45 PM CDT CBC AND DIFF Routine 09/01/2018 1:45 PM CDT STREPTOCOCCUS PNEUMO AG, Routine 09/01/2018 URINE 1:35 PM CDT LEGIONELLA ANTIGEN Routine 09/01/2018 URINE,RAN 1:35 PM CDT UA REFLEX CULTURE LABEL Routine 09/01/2018 1:35 PM CDT URINALYSIS MICROSCOPIC Routine 09/01/2018 REFLEX TO CULTURE 1:35 PM CDT URINALYSIS DIPSTICK Routine 09/01/2018 REFLEX TO CULTURE 1:35 PM CDT CULTURE-URINE Specimen 09/01/2018 W/SENSITIVITY in Lab 1:35 PM CDT GRAM STAIN 09/01/2018 1:20 PM CDT CULTURE-RESP,LOWER Routine 09/01/2018 W/SENSITIVITY 1:20 PM CDT ECG 12-LEAD STAT 09/01/2018 1:17 PM CDT NON-DECK BUILDER CYTOLOGY (BODY 09/01/2018 FLUIDS/TISSUE) 11:32 AM CDT GENERAL RAD CHEST Routine 09/01/2018 Diagnosis unknown EXTERNAL IMAGING 6:10 AM CDT GENERAL RAD CHEST Routine 09/01/2018 Diagnosis unknown EXTERNAL IMAGING 4:45 AM CDT GENERAL RAD CHEST Routine 08/31/2018 Diagnosis unknown EXTERNAL IMAGING 2:20 PM CDT GENERAL RAD CHEST Routine 08/31/2018 Diagnosis unknown EXTERNAL IMAGING 8:25 AM CDT PROTEIN/CR RATIO,UR RAN Routine 08/21/2018 Liver replaced by 11:33 AM CDT transplant (HCC) TRANSFERRIN Add on 08/21/2018 Anemia 11:04 AM CDT IRON + BINDING CAPACITY + Add on 08/21/2018 Anemia %SAT+ FERRITIN 11:04 AM CDT 25-OH VITAMIN D (D2 + D3) Routine 08/21/2018 Disorder of bone density 11:04 AM CDT and structure, unspecified Liver replaced by transplant (HCC) LIPID PROFILE Routine 08/21/2018 Liver replaced by 11:04 AM CDT transplant (HCC) TACROLIMUS LEVEL(FK506) Routine 08/21/2018 Liver replaced by 11:04 AM CDT transplant (HCC) GGTP Routine 08/21/2018 Liver replaced by 11:04 AM CDT transplant (HCC) PHOSPHORUS Routine 08/21/2018 Liver replaced by 11:04 AM CDT transplant (HCC) MAGNESIUM Routine 08/21/2018 Liver replaced by 11:04 AM CDT transplant (HCC) CBC AND DIFF Routine 08/21/2018 Liver replaced by 11:04 AM CDT transplant (HCC) COMPREHENSIVE METABOLIC Routine 08/21/2018 Liver replaced by PANEL 11:04 AM CDT transplant (HCC) from Last 3 Months Results * ECG-SCAN (09/19/2018 5:30 PM MILITARY PAY CLERK) Narrative Performed At Ordered by an unspecified provider. * ECG-SCAN (09/10/2018 3:55 PM CDT) Narrative Performed At Ordered by an unspecified provider. * TELEMETRY STRIPS-SCAN (09/08/2018 12:37 PM CDT) Narrative Performed At Ordered by an unspecified provider. * POC GLUCOSE (09/07/2018 12:36 PM CDT) Only the most recent of 31 results within the time period is included. Glucose, POC 183 (H) 70 - 100 MG/DL [facility] Performing Organization Address City/[facility] Phone Number [facility] [address] [place] [address] * CBC AND DIFF (09/07/2018 8:48 AM CDT) Only the most recent of 8 results within the time period is included. White Blood Cells 7.7 4.5 - 11.0 K/UL [facility] RBC 4.80 4.4 - 5.5 M/UL [facility] Hemoglobin 12.0 (L) 13.5 - 16.5 GM/DL [facility] Hematocrit 37.5 (L) 40 - 50 % [facility] MCV 78.2 (L) 80 - 100 FL [facility] MCH 25.0 (L) 26 - 34 PG [facility] MCHC 31.9 (L) 32.0 - 36.0 G/DL [facility] RDW 18.6 (H) 11 - 15 % [facility] Platelet Count 191 150 - 400 K/UL [facility] MPV 7.6 7 - 11 FL [facility] Neutrophils 81 (H) 41 - 77 % [facility] Lymphocytes 10 (L) 24 - 44 % [facility] Monocytes 7 4 - 12 % [facility] Eosinophils 1 0 - 5 % [facility] Basophils 1 0 - 2 % [facility] Absolute Neutrophil Count 6.20 1.8 - 7.0 K/UL [facility] Absolute Lymph Count 0.70 (L) 1.0 - 4.8 K/UL [facility] Absolute Monocyte Count 0.50 0 - 0.80 K/UL [facility] Absolute Eosinophil Count 0.10 0 - 0.45 K/UL [facility] Absolute Basophil Count 0.00 0 - 0.20 K/UL [facility] Specimen Blood Performing Organization Address City/[facility]/Zipcode Phone Number [facility] [address] [place] [address] * PHOSPHORUS (09/07/2018 8:48 AM CDT) Only the most recent of 8 results within the time period is included. Phosphorus 2.8Comment: NOTE NEW REFERENCE 2.0 - 4.5 MG/DL [facility] RANGES Specimen Blood Performing Organization Address [facility]/Zipcode Phone Number [facility] [address] [place] [address] * BNP (B-TYPE NATRIURETIC PEPTI) (09/07/2018 8:48 AM CDT) Only the most recent of 2 results within the time period is included. B Type Natriuretic 503.0 (H) 0 - 100 PG/ML [facility] Peptide Specimen Blood Performing Organization Address City/[facility]/Zipcode Phone Number [facility] [address] [place] [address] * MAGNESIUM (09/07/2018 8:48 AM CDT) Only the most recent of 8 results within the time period is included. Magnesium 1.8 1.6 - 2.6 mg/dL [facility] Specimen Blood Performing Organization Address [facility] Vegas[facility] Phone Number [facility] [address] [place] [address] * COMPREHENSIVE METABOLIC PANEL (09/07/2018 8:48 AM CDT) Only the most recent of 8 results within the time period is included. Sodium 137 137 - 147 MMOL/L [facility] Potassium 4.0 3.5 - 5.1 MMOL/L [facility] Chloride 101 98 - 110 MMOL/L [facility] Glucose 163 (H) 70 - 100 MG/DL [facility] Blood Urea Nitrogen 26 (H) 7 - 25 MG/DL [facility] Creatinine 1.24 0.4 - 1.24 MG/DL [facility] Calcium 9.4 8.5 - 10.6 MG/DL [facility] Total Protein 6.1 6.0 - 8.0 G/DL [facility] Total Bilirubin 0.9 0.3 - 1.2 MG/DL [facility] Albumin 3.4 (L) 3.5 - 5.0 G/DL [facility] Alk Phosphatase 72 25 - 110 U/L [facility] AST (SGOT) 9 7 - 40 U/L [facility] CO2 28 21 - 30 MMOL/L [facility] ALT (SGPT) <3 (L) 7 - 56 U/L [facility] Anion Gap 8 3 - 12 [facility] eGFR Non 57 (L) >60 mL/min [facility] Comment: The eGFR is not validated for use in drug dosing adjustments.Continue to use estimated creatinine clearance per dosing reference text.Please contact the Clinical Pharmacist for questions. eGFR >60 >60 mL/min [facility] Comment: The eGFR is not validated for use in drug dosing adjustments.Continue to use estimated creatinine clearance per dosing reference text.Please contact the Clinical Pharmacist for questions. Specimen Blood Performing Organization Address City/[facility]/Zipcode Phone Number [facility] [address] [place] [address] * PROTIME INR (PT) (09/07/2018 3:35 AM CDT) Only the most recent of 7 results within the time period is included. INR 1.4 (H) 0.8 - 1.2 [facility] Specimen Blood Performing Organization Address City/[facility]/Zipcode Phone Number [facility] [address] [place] [address] * HEMOGLOBIN A1C (09/07/2018 3:35 AM CDT) Hemoglobin A1C 6.8 (H) 4.0 - 6.0 % [facility] Comment: The ADA recommends that most patients with type 1 and type 2 diabetes maintain an A1c level <7%. Specimen Blood Performing Organization Address [facility]/Zipcode Phone Number [facility] [address] [place] [address] * LIMITED ECHOCARDIOGRAM (09/06/2018 12:13 PM CDT) IVS 1.02 0.6 - 1.0 cm OTHER OUTSIDE LAB LVIDD 5.36 4.2 - 5.8 cm OTHER OUTSIDE LAB LVIDS 4.53 2.5 - 4.0 cm OTHER OUTSIDE LAB PW 1.01 0.6 - 1.0 cm OTHER OUTSIDE LAB Right Ventricular Mid 3.04 1.9 - 3.5 cm OTHER OUTSIDE LAB Diameter LA size 5.28 3.0 - 4.0 cm OTHER OUTSIDE LAB Right Atrial Area 23.79 <18 cm2 OTHER OUTSIDE LAB Right Atrial Major 5.66 2.1 - 2.7 cm OTHER OUTSIDE LAB Dimension Right Ventricular Basal 4.33 2.5 - 4.1 cm OTHER OUTSIDE LAB Diameter Right Heart Systolic 0.66 >1.7 cm OTHER OUTSIDE LAB Mmode TAPSE Sinus 3.29 3.1 - 3.7 cm OTHER OUTSIDE LAB BSA 2.42 m2 OTHER [facility] LAB FS 15.49 28 - 44 % OTHER [facility] EF 26.33 % OTHER OUTSIDE LAB CV ECHO PV MARINE WELDER Juan DiegoISH - Definty OTHER OUTSIDE LAB LV mass 208.26 96 - 200 g OTHER OUTSIDE LAB RWT 0.38 <=0.42 OTHER OUTSIDE LAB Cardiology Ultrasound Siemens [id number] OTHER OUTSIDE LAB Machine Left Ventricle Mass Index 86.06 50 - 102 g/m2 OTHER OUTSIDE LAB Narrative Performed At OTHER OUTSIDE LAB Rest Echo: 1. Borderline left ventricular systolic function with an EF ~ 50% 2. No regional wall motion abnormalities. 3. Aortic valve is significantly sclerotic and appears stenotic but no doppler measurements were made 4. Nicole thickening with annular calcification 5. Mildly increasedLV wall thickness 6. Normal aortic root dimension 7. No pericardial effusion 8. Normal ventricular chamber dimensions 9. Left and right atrial enlargement Performing Organization Address City/[facility] Phone Number OTHER [facility] LAB * TACROLIMUS LEVEL([id number]) (09/06/2018 9:07 AM CDT) Only the most recent of 7 results within the time period is included. Tacrolimus 3.6 2 - 15 NG/ML [facility] Comment: Target concentrations vary by type of transplant, patient response, concomitant immunosuppression and post-transplant time interval.Test was performed on whole blood using Panopto QMS reagent and a Kristy Erik AU analyzer. Specimen Blood Performing Organization Address City/[facility]/Zipcode Phone Number MAIN LAB [address] [place] [address] * SWALLOW MOTION SERIES (09/05/2018 1:53 PM CDT) Impressions Performed At 1. No evidence of laryngeal penetration or aspiration with all tested [facility] RESULTS consistencies of barium. 2. Please see separately dictated report from the Department of Speech Pathology for further description. Approved by Raisa Langley M.D. on 09/05/2018 2:42 PM By my electronic signature, I attest that I have personally reviewed the images for this examination and formulated the interpretations and opinions expressed in this report Finalized by Rosales Aguayo M.D. on 09/05/2018 4:24 PM. Dictated by Raisa Langley M.D. on 09/05/2018 2:41 PM. Narrative Performed At SWALLOW MOTION SERIES [facility] RESULTS CLINICAL HISTORY: 73-year-old female, dysphagia. TECHNIQUE: The procedure was performed in conjunction with members of the department of speech pathology. Video fluoroscopy was performed during swallowing of various consistencies of barium. The patient tolerated the procedure well and left the department in stable condition. TOTAL FLUOROSCOPY TIME: 96 seconds FINDINGS: No evidence of laryngeal penetration or aspiration with all tested consistencies of barium. Procedure Note Interface, Radiant Results - 09/05/2018 4:27 PM CDT SWALLOW MOTION SERIES CLINICAL HISTORY: 73-year-old female, dysphagia. TECHNIQUE: The procedure was performed in conjunction with members of the department of speech pathology. Video fluoroscopy was performed during swallowing of various consistencies of barium. The patient tolerated the procedure well and left the department in stable condition. TOTAL FLUOROSCOPY TIME: 96 seconds FINDINGS: No evidence of laryngeal penetration or aspiration with all tested consistencies of barium. IMPRESSION 1. No evidence of laryngeal penetration or aspiration with all tested consistencies of barium. 2. Please see separately dictated report from the Department of Speech Pathology for further description. Approved by Raisa Langley M.D. on 09/05/2018 2:42 PM By my electronic signature, I attest that I have personally reviewed the images for this examination and formulated the interpretations and opinions expressed in this report Finalized by Rosales Aguayo M.D. on 09/05/2018 4:24 PM. Dictated by Raisa Langley M.D. on 09/05/2018 2:41 PM. Performing Organization Address City/[facility] Phone Number RAD RESULTS * TROPONIN-I (09/03/2018 6:44 AM CDT) Only the most recent of 6 results within the time period is included. Troponin-I 0.10 (H) 0.0 - 0.05 NG/ML [facility] Specimen Blood Performing Organization Address City/State/Zipcode Phone Number MAIN LAB [address] [place] [address] * HISTOPLASMA AG-URINE RANDOM (09/02/2018 6:45 PM CDT) Histo Wheat Ag NONE DETECTED ng/mL REFERENCE LAB Comment: NEGATIVE SEE BODY ARTIST FOR REPORT Specimen Urine - Urine Narrative Performed At Performing Organization Address City/State/Zipcode Phone Number REFERENCE LAB REFERENCE LAB See results for address. * ABDOMEN AP ONLY (09/02/2018 4:45 AM CDT) Impressions Performed At 1.Gastric tube placement with tip overlying the proximal stomach. [facility] RAD RESULTS 2.Mild cardiomegaly and bibasilar pulmonary opacities. By my electronic signature, I attest that I have personally reviewed the images for this examination and formulated the interpretations and opinions expressed in this report Finalized by Juan Diego Álvarez M.D. on 09/02/2018 9:47 AM. Dictated by Maryanne Stiles M.D. on 09/02/2018 7:11 AM. Narrative Performed At ABDOMEN AP ONLY [facility] RAD RESULTS HISTORY: OG tube placement TECHNIQUE: Single portable supine view of the upper abdomen was obtained COMPARISON: Abdominal radiograph February 17, 2018 FINDINGS: Gastric tube is noted with tip overlying the proximal stomach. Visualized upper abdominal bowel gas pattern is nonspecific. Multiple surgical clips overlie the upper abdomen. Partial visualization of lower sternotomy wires and mild cardiomegaly with bibasilar pulmonary opacities. Lumbar spondylosis. Procedure Note Interface, Radiant Results - 09/02/2018 9:50 AM CDT ABDOMEN AP ONLY HISTORY: OG tube placement TECHNIQUE: Single portable supine view of the upper abdomen was obtained COMPARISON: Abdominal radiograph February 17, 2018 FINDINGS: Gastric tube is noted with tip overlying the proximal stomach. Visualized upper abdominal bowel gas pattern is nonspecific. Multiple surgical clips overlie the upper abdomen. Partial visualization of lower sternotomy wires and mild cardiomegaly with bibasilar pulmonary opacities. Lumbar spondylosis. IMPRESSION 1. Gastric tube placement with tip overlying the proximal stomach. 2. Mild cardiomegaly and bibasilar pulmonary opacities. By my electronic signature, I attest that I have personally reviewed the images for this examination and formulated the interpretations and opinions expressed in this report Finalized by Juan Diego Álvarez M.D. on 09/02/2018 9:47 AM. Dictated by Maryanne Stiles M.D. on 09/02/2018 7:11 AM. Performing Organization Address City/State/Zipcode Phone Number [facility] RAD RESULTS * BLOOD GASES, ARTERIAL (09/02/2018 2:38 AM CDT) Only the most recent of 3 results within the time period is included. pH-Arterial 7.30 (L) 7.35 - 7.45 [facility] pCO2-Arterial 50 (H) 35 - 45 MMHG [facility] pO2-Arterial 151 (H) 80 - 100 MMHG [facility] Base Deficit-Arterial 2.3 MMOL/L [facility] O2 Sat-Arterial 99.0 95 - 99 % [facility] Xgvuiarqkis-TML-Zvu 22.5 21 - 28 MMOL/L [facility] Specimen Blood, arterial - Blood Performing Organization Address City/State/Zipcode Phone Number MAIN LAB [address] [place] [address] * CT CHEST WO CONTRAST (09/01/2018 6:49 PM CDT) Impressions Performed At 1.Patchy consolidative and groundglass opacities throughout both lungs most [facility] RAD RESULTS compatible with multifocal pneumonia mixed with atelectasis. Small right and trace left pleural effusions, likely parapneumonic rather than sequela of CHF or fluid overload. 2.Prior median sternotomy and CABG with mild cardiomegaly, dense galena coronary artery calcification, and aortic valve calcification. 3.Mildly prominent mediastinal lymph nodes which are likely reactive. 4.Persistent upper abdominal ascites. 5.Mild diffuse hepatic steatosis. By my electronic signature, I attest that I have personally reviewed the images for this examination and formulated the interpretations and opinions expressed in this report Finalized by Wenceslao Cardona M.D. on 09/01/2018 8:02 PM. Dictated by Theodore Mcbride M.D. on 09/01/2018 7:28 PM. Narrative Performed At CT CHEST [facility] RAD RESULTS Clinical Indication:Male, 73 years old. Respiratory failure. Technique: Multiple contiguous axial CT images were obtained through the chest without IV contrast. Post processing coronal and sagittal reconstruction images were made from the axial images. IV contrast: None Comparison: Chest radiograph from earlier the same day, partial comparison made to CT abdomen/pelvis from 01/23/2011. FINDINGS: Evaluation of the mediastinum and franklin, including the vasculature and for lymphadenopathy, is limited without the use of IV contrast. Lower Neck: Small focus of probable intravenous gas in the supraclavicular region and a small subcutaneous focus of gas in the subcutaneous tissues of the thoracic inlet anteriorly at midline. Axilla, Mediastinum and Franklin: No axillary lymphadenopathy. Scattered mildly prominent mediastinal lymph nodes are noted which maintain a short axis diameter of less than 1 cm and are likely reactive. No obvious hilar lymphadenopathy. Heart and Great Vessels: Mild cardiomegaly without pericardial effusion. Prior median sternotomy and CABG. Dense galena coronary artery calcification and moderate calcification of the aortic valve leaflets. Mild gas is present in the nondependent right atrium. Right PICC in place with tip terminating at the atriocaval junction. Thoracic aorta is normal in caliber with moderate calcific plaque. Airway, Lungs and Pleura: Endotracheal tube in place with tip terminating above the joe. Trace left and small right pleural effusions. Patchy groundglass and consolidative opacities within all 5 lobes, most pronounced in the lower lobes. No pneumothorax. Upper Abdomen: Mild diffuse hepatic steatosis. Relatively moderate upper abdominal ascites. Partial visualization of a enteric tube which passes at least to the level of the gastric body. Chest Wall and Osseous Structures: No destructive osseous lesion. Mild symmetric gynecomastia. Procedure Note Interface, Radiant Results - 09/01/2018 8:[address] CHEST Clinical Indication: Male, 73 years old. Respiratory failure. Technique: Multiple contiguous axial CT images were obtained through the chest without IV contrast. Post processing coronal and sagittal reconstruction images were made from the axial images. IV contrast: None Comparison: Chest radiograph from earlier the same day, partial comparison made to CT abdomen/pelvis from 01/23/2011. FINDINGS: Evaluation of the mediastinum and franklin, including the vasculature and for lymphadenopathy, is limited without the use of IV contrast. Lower Neck: Small focus of probable intravenous gas in the supraclavicular region and a small subcutaneous focus of gas in the subcutaneous tissues of the thoracic inlet anteriorly at midline. Axilla, Mediastinum and Franklin: No axillary lymphadenopathy. Scattered mildly prominent mediastinal lymph nodes are noted which maintain a short axis diameter of less than 1 cm and are likely reactive. No obvious hilar lymphadenopathy. Heart and Great Vessels: Mild cardiomegaly without pericardial effusion. Prior median sternotomy and CABG. Dense galena coronary artery calcification and moderate calcification of the aortic valve leaflets. Mild gas is present in the nondependent right atrium. Right PICC in place with tip terminating at the atriocaval junction. Thoracic aorta is normal in caliber with moderate calcific plaque. Airway, Lungs and Pleura: Endotracheal tube in place with tip terminating above the joe. Trace left and small right pleural effusions. Patchy groundglass and consolidative opacities within all 5 lobes, most pronounced in the lower lobes. No pneumothorax. Upper Abdomen: Mild diffuse hepatic steatosis. Relatively moderate upper abdominal ascites. Partial visualization of a enteric tube which passes at least to the level of the gastric body. Chest Wall and Osseous Structures: No destructive osseous lesion. Mild symmetric gynecomastia. IMPRESSION 1. Patchy consolidative and groundglass opacities throughout both lungs most compatible with multifocal pneumonia mixed with atelectasis. Small right and trace left pleural effusions, likely parapneumonic rather than sequela of CHF or fluid overload. 2. Prior median sternotomy and CABG with mild cardiomegaly, dense galena coronary artery calcification, and aortic valve calcification. 3. Mildly prominent mediastinal lymph nodes which are likely reactive. 4. Persistent upper abdominal ascites. 5. Mild diffuse hepatic steatosis. By my electronic signature, I attest that I have personally reviewed the images for this examination and formulated the interpretations and opinions expressed in this report Finalized by Wenceslao Cardona M.D. on 09/01/2018 8:02 PM. Dictated by Theodore Mcbride M.D. on 09/01/2018 7:28 PM. Performing Organization Address City/State/Zipcode Phone Number [facility] RAD RESULTS * CT HEAD WO CONTRAST (09/01/2018 6:49 PM CDT) Impressions Performed At 1.No acute intracranial hemorrhage or mass effect. [facility] RAD RESULTS 2.Mild generalized cerebral volume loss and mild to moderate nonspecific white matter disease, likely related to chronic microvascular ischemia. By my electronic signature, I attest that I have personally reviewed the images for this examination and formulated the interpretations and opinions expressed in this report Finalized by Wenceslao Cardona M.D. on 09/01/2018 7:32 PM. Dictated by Theodore Mcbride M.D. on 09/01/2018 7:17 PM. Narrative Performed At EXAM: CT HEAD [facility] RAD RESULTS HISTORY: , focal twitching, supratherapeutic INR, TECHNIQUE: Multiple contiguous axial images were obtained of the brain without intravenous contrast. COMPARISON: None FINDINGS: Dr. Wenceslao Cardona M.D. has personally reviewed these images and formulated the interpretations and opinions expressed in this report. Concordant prominence of the ventricles and subarachnoid spaces compatible with mild generalized cerebral volume loss. There is no midline shift or mass effect. Mild to moderate supratentorial white matter hypodensities. The tena white matter interfaces are maintained. The basal cisterns are patent. There is no evidence of acute intracranial hemorrhage or extra-axial fluid collection. The mastoid air cells and visualized paranasal sinuses are well-aerated. Calvarium is intact. Distal internal carotid and vertebral artery atherosclerotic calcifications, relatively moderate in degree. Procedure Note Interface, Radiant Results - 09/01/2018 7:35 PM CDT EXAM: CT HEAD HISTORY: , focal twitching, supratherapeutic INR, TECHNIQUE: Multiple contiguous axial images were obtained of the brain without intravenous contrast. COMPARISON: None FINDINGS: Dr. Wenceslao Cardona M.D. has personally reviewed these images and formulated the interpretations and opinions expressed in this report. Concordant prominence of the ventricles and subarachnoid spaces compatible with mild generalized cerebral volume loss. There is no midline shift or mass effect. Mild to moderate supratentorial white matter hypodensities. The tena white matter interfaces are maintained. The basal cisterns are patent. There is no evidence of acute intracranial hemorrhage or extra-axial fluid collection. The mastoid air cells and visualized paranasal sinuses are well-aerated. Calvarium is intact. Distal internal carotid and vertebral artery atherosclerotic calcifications, relatively moderate in degree. IMPRESSION 1. No acute intracranial hemorrhage or mass effect. 2. Mild generalized cerebral volume loss and mild to moderate nonspecific white matter disease, likely related to chronic microvascular ischemia. By my electronic signature, I attest that I have personally reviewed the images for this examination and formulated the interpretations and opinions expressed in this report Finalized by Wenceslao Cardona M.D. on 09/01/2018 7:32 PM. Dictated by Theodoer Mcbride M.D. on 09/01/2018 7:17 PM. Performing Organization Address City/State/Zipcode Phone Number [facility] RAD RESULTS * TRANSFUSE PLASMA (FFP) (09/01/2018 5:27 PM CDT) Only the most recent of 2 results within the time period is included. * 2-D + DOPPLER ECHOCARDIOGRAM (09/01/2018 4:58 PM CDT) LA volume 109.00 18 - 58 cm3 OTHER OUTSIDE LAB LA size 4.30 3.0 - 4.0 cm OTHER OUTSIDE LAB , with a mean gradient of 9.15 mmHg OTHER OUTSIDE LAB Ao VTI 42.30 cm OTHER OUTSIDE LAB Sinus 3.40 3.1 - 3.7 cm OTHER OUTSIDE LAB IVS 1.54 0.6 - 1.0 cm OTHER OUTSIDE LAB LVIDD 4.81 4.2 - 5.8 cm OTHER OUTSIDE LAB LVIDS 4.20 2.5 - 4.0 cm OTHER OUTSIDE LAB LVOT peak VTI 12.60 cm OTHER OUTSIDE LAB PW 1.43 0.6 - 1.0 cm OTHER OUTSIDE LAB Right Heart Systolic 0.93 >1.7 cm OTHER OUTSIDE LAB Mmode TAPSE Right Ventricular Mid 2.30 1.9 - 3.5 cm OTHER OUTSIDE LAB Diameter Right Ventricular Basal 4.10 2.5 - 4.1 cm OTHER OUTSIDE LAB Diameter Right Atrial Major 5.52 2.1 - 2.7 cm OTHER OUTSIDE LAB Dimension Right Atrial Area 20.10 <18 cm2 OTHER OUTSIDE LAB Right Heart Systolic TDI 0.07 m/s OTHER OUTSIDE LAB S' BSA 2.43 m2 OTHER OUTSIDE LAB FS 12.68 28 - 44 % OTHER OUTSIDE LAB EF 21.56 % OTHER OUTSIDE LAB Left Atrium Index 44.86 16 - 34 OTHER OUTSIDE LAB LV mass 299.81 96 - 200 g OTHER OUTSIDE LAB RWT 0.59 <=0.42 OTHER OUTSIDE LAB AV peak velocity 2.0 m/s OTHER OUTSIDE LAB LVOT diameter 2.1 cm OTHER OUTSIDE LAB LVOT peak shaquille 0.7 m/s OTHER OUTSIDE LAB and a peak gradient of 15 mmHg OTHER OUTSIDE LAB Cardiology Ultrasound Cathie Epiq OTHER OUTSIDE LAB Machine Left Ventricle Mass Index 123.38 50 - 102 g/m2 OTHER OUTSIDE LAB AV index (galena) 0.35 OTHER OUTSIDE LAB LVOT area 3.46 cm2 OTHER OUTSIDE LAB LVOT stroke volume 43.60 cm3 OTHER OUTSIDE LAB Aortic valve area= 1.03 cm2 OTHER OUTSIDE LAB TV rest pulmonary artery 62 mmHg OTHER OUTSIDE LAB pressure ECHO EF 20 % OTHER OUTSIDE LAB Narrative Performed At OTHER OUTSIDE LAB Severely reduced LV function, LVEF=20% Rhythm appear to be atrial fib. Significantly low cardiac output as estimated by LVOT VTI under 15 cm Mild by continuity equation and VTI; however this is likely underestimated by low flow state. Moderately reduced RV function. Compared to prior study dated 02/18/18: RV and LV function are somewhat worse. Performing Organization Address City/State/Zipcode Phone Number OTHER OUTSIDE LAB * FLOW CYTOMETRY (09/01/2018 4:06 PM CDT) PATHOLOGY REPORT [facility] [email or web address] Parminder Tristan MD, Director of Flow Cytometry Laboratory Department of Pathology and Laboratory Medicine [address] [place] [address] Surgical Pathology Office:[phone] :[phone] FLOW CYTOMETRY REPORT NAME: CUCO CHONG SURG PATH #: [id number] MR #: [id number] SPECIMEN CLASS: LC BILLING #: [id number] ALT ID #:LOCATION: [id number] DATE OF PROCEDURE: 09/01/2018 AGE:73 SEX: M DATE RECEIVED: 09/01/2018 : 1945TIME RECEIVED:18:20 PHYSICIAN: JE CURRAN MD DATE OF REPORT: 09/04/2018 COPY TO: MD JERONIMO ANDERSON DATE OF PRINTIN09/04/2018 Material Received: A: Bronchial wash History: The patient presents for evaluation of respiratory failure, and has a history of cirrhosis status post liver transplant. ############################## ############################## ############ Final Diagnosis: Bronchial wash, flow cytometry: Negative phenotypic study. Interpretation: Lymphocytes comprise 3% of total cells.The majority are T cells with a slightly decreased CD4:CD8 ratio of 0.7.The remaining lymphocytes are NK cells and B cells. Attestation: By this signature, I attest that I have personally formulated the final interpretation expressed in this report and that the above diagnosis is based upon my examination of the slides and/or other material indicated in this report. +++Electronically Signed Out By+++ charles/09/02/2018 Interpreted by: July Laguna MD 09/04/2018 ############################## ############################## ############ Lab Data: Flow CytometryBronchoalveolar Lavage Panel B Cell Associated Markers (% Positive Cells): CD20=1 T Cell Associated Markers (% Positive Cells): CD2=84; CD3=75; CD4=30; CD8=43 CD4:CD8 ratio=0.7 NK Cell Associated Markers (% Positive Cells): CD56=14 Miscellaneous Markers (% Positive Cells): [id number] Cell Viability (%): 99 Number of Cells Analyzed:10,000 Total Number of Markers: 7 Summary of Marker Combinations: 01/03////56/8 This test was developed and its performance characteristics determined by the [facility] Flow Cytometry Laboratory.It has not been cleared or approved by the U.S. Food and Drug Administration (FDA).The FDA has determined that such clearance or approval is not necessary. Performing Organization Address City/[facility]/Zipcode Phone Number LAB RESULTS * LEUKEMIA/LYMPHOMA PANEL FLUID/TISSUE (09/01/2018 4:06 PM CDT) Leuk/Lymph Interpretation SEE PATHOLOGY REPORT MAIN LAB Specimen/LLM BRONCHIAL ALVEOLAR LAVAGE MAIN LAB Specimen Bronchial Alveolar Lavage Performing Organization Address City/[facility] Phone Number MAIN LAB [address] [place] [address] * ASPERGILLUS GALACTOMANN (09/01/2018 4:06 PM CDT) Aspergillus Galactomann 0.096 REFERENCE LAB BAL Comment: Reference range: <0.500 . Interpretation:Patients with an index value of greater than or equal to 0.5 are considered to be positive for galactomannan antigen. The Platelia(TM) Aspergillus EIA package insert also recommends a new sample be collected from the patient for follow-up testing. Patients with an index value of less than 0.5 are considered to be negative for galactomannan antigen. A negative result may indicate that the patient's result is below the detectable level of the assay. . Negative results do not rule out the diagnosis of Invasive Aspergillosis. Pursuant to the package insert, repeat testing is recommended if the result is negative, but the disease is suspected. Due to the potential for environmental contamination when transferred to pour-off tubes, which can lead to false positive results, interpret positive results from samples provided in pour-off tubes with caution. Results should be used in conjunction with clinical findings, and should not form the sole basis for a diagnosis or treatment decision. . The Platelia Aspergillus Galactomannan EIA is a product of [employer] and is FDA approved for in vitro diagnostic use. Testing Performed At: [place], [place] [id number] CLIA ID: [id number] Specimen Bronchial Washing RML Performing Organization Address City/State/Zipcode Phone Number REFERENCE LAB REFERENCE LAB See results for address. * PJP JIROVECI QUANT PCR (09/01/2018 4:06 PM CDT) [facility] Jiroveci BAL PCR Not Detected REFERENCE LAB Quant Reference range: Not Detected Unit: copies/mL . Assay Range: 84 copies/mL to 1.00E+08 copies/mL . The limit of quantitation (LOQ) is 84 copies/mL. Pneumocystis jiroveci DNA detected below the LOQ will be reported as Detected:<84 copies/mL. . This test was developed and its performance characteristics determined by [employer]. It has not been cleared or approved by the U.S. Food and Drug Administration. Results should be used in conjunction with clinical findings, and should not form the sole basis for a diagnosis or treatment decision. Testing Performed At: [employer], [place] [id number] CLIA ID: [id number] Specimen Bronchial Washing RML Performing Organization Address City/State/Zipcode Phone Number REFERENCE LAB REFERENCE LAB See results for address. * RVP VIRAL PANEL PCR (09/01/2018 4:06 PM CDT) Only the most recent of 2 results within the time period is included. Specimen Source BRONCHIAL ALVEOLAR LAVAGE [facility]IN [facility] Adenovirus NOT DETECTED [facility]IN [facility] Coronavirus 229E NOT DETECTED [facility]IN [facility] Coronavirus HKU1 NOT DETECTED [facility] Coronavirus NL63 NOT DETECTED [facility] Coronavirus OC43 NOT DETECTED [facility] Human Metapneumovirus NOT DETECTED [facility] Human NOT DETECTED [facility] Rhinovirus/ENTEROVIRUS Influenza A H1N1 2009 NOT DETECTED [facility]IN [facility] Influenza A H1 NOT DETECTED [facility] Influenza A H3 NOT DETECTED [facility] Influenza B NOT DETECTED [facility] Parainfluenza 1 NOT DETECTED [facility] Parainfluenza 2 NOT DETECTED [facility] Parainfluenza 3 NOT DETECTED [facility] Parainfluenza 4 NOT DETECTED [facility]IN [facility] RSV NOT DETECTED [facility] Bordetella Pertussis NOT DETECTED [facility] Chlamydophila Pneumoniae NOT DETECTED [facility] Mycoplasma Pneumoniae NOT DETECTED [facility]IN [facility] Specimen Bronchial Alveolar Lavage Performing Organization Address [facility] Phone Number MAIN LAB [address] [place] [address] * HERPES SIMPLEX PCR - NON-BLOOD (09/01/2018 4:06 PM CDT) Specimen, Herpes BRONCHIAL ALVEOLAR LAVAGE [facility] MAIN [facility] Herpes Simplex PCR HSV 1 and 2 NOT DETECTED HSVND-HSV 1 and 2 NOT [facility] MAIN LAB Comment: DETECTED [employer] HSV 1&2 Assay is a qualitative real-time PCR test for the direct detection and differentiation of HSV 1 and 2 DNA. This assay is FDA approved for testing cutaneous or mucocutaneous lesions from symptomatic patients. Performance on modifications of this test as well as other specimen types has been validated by the Department of Pathology and Laboratory Medicine at the [facility]. Specimen Bronchial Alveolar Lavage Performing Organization Address [facility] Phone Number MAIN LAB [address] [place] [address] * CULTURE-FUNGAL,OTHER (09/01/2018 4:06 PM CDT) Battery Name FUNGUS CULTURE [facility]IN [facility] Specimen Description BRONCHIAL ALVEOLAR LAVAGE, RML [facility]IN [facility] Special Requests NONE [facility] Culture Light growth [facility] BRISEIDA GLABRATA Report Status FINAL [facility]IN [facility] 09/19/2018 Specimen Bronchial Alveolar Lavage,RML Performing Organization Address [facility] Phone Number MAIN LAB [address] [place] [address] * GRAM STAIN (09/01/2018 4:06 PM CDT) Only the most recent of 2 results within the time period is included. Battery Name GRAM STAIN MAIN LAB Specimen Description BRONCHIAL ALVEOLAR LAVAGE, RML MAIN LAB Special Requests NONE [facility] MAIN [facility] Gram Stain FEW MAIN LAB NEUTROPHILS NO ORGANISMS SEEN Report Status FINAL MAIN LAB 09/01/2018 Specimen Bronchial Alveolar Lavage,RM Performing Organization Address [facility] Phone Number MAIN LAB [address] [place] [place] [id number] * CULTURE-TB (AFB) (09/01/2018 4:06 PM CDT) Battery Name AFB CULTURE MAIN LAB Specimen Description [facility]ONCHIAL ALVEOLAR LAVAGE, [facility] Special Requests NONE MAIN LAB Acid Fast Stain NO ACID FAST BACILLI SEEN MAIN LAB Culture NO GROWTH OF MYCOBACTERIA AT 6 MAIN LAB WEEKS Report Status FINAL MAIN LAB 10/23/2018 Specimen Bronchial Alveolar Lavage,RM Performing Organization Address [facility] Phone Number MAIN LAB [address] [place] [address] * CULTURE-RESP,LOWER W/SENSITIVITY (09/01/2018 4:06 PM CDT) Only the most recent of 2 results within the time period is included. Battery Name LOWER RESP CULTURE MAIN LAB Specimen Description [facility] Special Requests NONE MAIN LAB Direct Gram Stain FEW MAIN LAB NEUTROPHILS NO ORGANISMS SEEN Culture One colony MAIN LAB KLEBSIELLA PNEUMONIAE COMPLEX See susceptibility on duplicate isolate Report Status FINAL MAIN LAB 09/04/2018 Specimen Bronchial Alveolar Lavage,[facility] Performing Organization Address [facility] Phone Number MAIN LAB [address] [place] [id number] * CMV QUANT PCR-FLUID (09/01/2018 4:06 PM CDT) Specimen, CMV BRONCHIAL ALVEOLAR LAVAGE MAIN LAB CMV by PCR-fluid CMV DNA NOT DETECTED CMVND-CMV DNA NOT MAIN LAB DETECTED CMV Comment-Fluid This assay is an off label use MAIN LAB of the Thomas RealTime Assay for detection of CMV in fluids and has not been approved by the US Food and Drug Administration. The performance characteristics were determined by the [facility].The lower limit of detection is 50IU/mL. Specimen Fluid - Bronchial Alveolar Lavage Performing Organization Address [facility]/Zipcode Phone Number MAIN LAB [address] [place] [address] * CELL COUNT W/DIFF-FLUIDS (09/01/2018 4:06 PM CDT) White Blood Cells,Fluid 345 /UL MAIN LAB Red Blood Cells,Fluid 7,600 /UL MAIN LAB Segmented Neutrophils, 68 % [facility] MAIN LAB Fluid Lymphocytes,Fluid 7 % MAIN LAB Monocyte/Histo,Fluid 24 % MAIN LAB Eosinophils, Fluid 1 % [facility] MAIN LAB Fluid Source BRONCHIAL ALVEOLAR LAVAGE MAIN LAB Pathology ACUTE AND CHRONIC INFLAMMATION [facility] MAIN LAB Interpretation,Fluid HEMORRHAGIC FLUID Pathologist Signature INTERPRETED BY KLAUS HARRY M.D. MAIN LAB By the PATH SIGNATURE ABOVE, I attest that I have personally formulated the final interpretation expressed in this report and that the above diagnosis is based upon my examination of the slides and/or other material indicated in this report. Specimen Fluid - Bronchial Alveolar Lavage Performing Organization Address [facility] Phone Number MAIN LAB [address] [place] [address] * PREPARE PLASMA (FFP) (09/01/2018 3:14 PM CDT) Units Ordered 1 MAIN LAB Unit Number [id number] MAIN LAB Blood Component Type APHERESIS PLASMA THAWED MAIN LAB Unit Division 0 MAIN LAB Status OF Unit TRANSFUSED [facility] MAIN LAB Transfusion Status OK TO TRANSFUSE MAIN LAB Specimen Other (Specify) Performing Organization Address [facility] Phone Number MAIN LAB [address] [place] [address] * BLOOD GASES, CENTRAL VENOUS (09/01/2018 2:35 PM CDT) PH-Central Venous 7.25 (L) 7.30 - 7.40 MAIN LAB PCO2-Central Venous 59 >40 MMHG KU MAIN LAB PO2-Central Venous 43 40 - 50 MMHG KU MAIN LAB Base Deficit-Central 3.0 MMOL/L KU MAIN LAB Venous O2 Sat (Calc)-Central 72.5 65 - 75 % [facility] MAIN LAB Venous Bicarb-Central Venous 21.4 MMOL/L MAIN LAB Specimen Blood Performing Organization Address [facility] Phone Number MAIN LAB [address] [place] [address] * TEG WITH KAOLIN (09/01/2018 2:26 PM CDT) MA Kaolin 64.5 >49.9 MM REFERENCE LAB R Kaolin 7.7 <9.1 MIN REFERENCE LAB RK Kaolin 9.6 <12.1 MIN REFERENCE LAB K Kaolin 1.9 <3.1 MIN REFERENCE LAB Angle Kaolin 63.8 >54.9 DEG REFERENCE LAB Lysis30 0.0 <8.1 % REFERENCE LAB Specimen Blood Performing Organization Address City/State/Zipcode Phone Number REFERENCE LAB REFERENCE LAB See results for address. * CULTURE-BLOOD W/SENSITIVITY (09/01/2018 2:26 PM CDT) Only the most recent of 2 results within the time period is included. Battery Name BLOOD CULTURE [facility] MAIN LAB Specimen Description BLOOD [facility] MAIN LAB LEFT ART LINE Special Requests NONE [facility] MAIN LAB Culture NO GROWTH 5 DAYS [facility] MAIN LAB Report Status FINAL [facility] MAIN LAB 09/07/2018 Specimen Blood Performing Organization Address City/State/Zipcode Phone Number [facility] MAIN LAB [address] [place] [address] * CHEST SINGLE VIEW (09/01/2018 1:50 PM CDT) Impressions Performed At 1. Enlarged cardiac silhouette with vascular congestion and interstitial [facility] RAD RESULTS opacities, suggesting pulmonary edema. 2. Bilateral pleural effusions, larger on the right. Finalized by VINNY PENDLETON M.D. on 09/01/2018 2:08 PM. Dictated by VINNY PENDLETON M.D. on 09/01/2018 2:06 PM. Narrative Performed At CHEST SINGLE VIEW [facility] RAD RESULTS Clinical history: hypoxia. Comparison: Chest radiograph 02/17/2018 Findings: There has been previous median sternotomy. An endotracheal tube is in place, with the tip above the joe. A gastric tube courses below the diaphragm, with the tip out of the [id number]. A right PICC is in place, with the tip overlying the junction of SVC and right atrium. The cardiac silhouette is mildly enlarged with vascular congestion and diffuse interstitial opacities. There are bilateral pleural effusions, larger on the right. No pneumothorax is visualized. Scarring is again seen within the right upper lobe. Procedure Note Interface, Radiant Results - 09/01/2018 2:11 PM CDT CHEST SINGLE VIEW Clinical history: hypoxia. Comparison: Chest radiograph 02/17/2018 Findings: There has been previous median sternotomy. An endotracheal tube is in place, with the tip above the joe. A gastric tube courses below the diaphragm, with the tip out of the [id number]. A right PICC is in place, with the tip overlying the junction of SVC and right atrium. The cardiac silhouette is mildly enlarged with vascular congestion and diffuse interstitial opacities. There are bilateral pleural effusions, larger on the right. No pneumothorax is visualized. Scarring is again seen within the right upper lobe. IMPRESSION 1. Enlarged cardiac silhouette with vascular congestion and interstitial opacities, suggesting pulmonary edema. 2. Bilateral pleural effusions, larger on the right. Finalized by VINNY PENDLETON M.D. on 09/01/2018 2:08 PM. Dictated by VINNY PENDLETON M.D. on 09/01/2018 2:06 PM. Performing Organization Address City/State/Zipcode Phone Number RAD RESULTS * PROCALCITONIN (09/01/2018 1:45 PM CDT) Procalcitonin 4.25 (H) <0.10 NG/ML MAIN LAB Performing Organization Address City/State/[facility] Phone Number MAIN LAB [address] [place] [address] * FUNGITELL (09/01/2018 1:45 PM CDT) Fungitell 105 (H) REFERENCE LAB Comment: Reference range: <80 Unit: pg/mL . Interpretation: The Fungitell assay does not detect certain fungal species such as the genus Cryptococcus (Ezequiel et al. 1991) which produces very low levels of (1-3)-Hlnu-Y-Awimgf. The assay also does not detect the Zygomycetes such as Absidia, Mucor and Rhizopus (Nolan et al. 1994) which are not known to produce (1-3)-Cwfi-V-Opyjmu. In addition, the yeast phase of Blastomyces dermatitidis produces little (1-3)-Iszq-Y-Cppsla and may not be detected by the assay (Sergo et al. 2007). . Reference Range: Less than 60 pg/mL. Glucan values of less than 60 pg/mL are interpreted as negative. Glucan values of 60 to 79 pg/mL are interpreted as indeterminate, and suggest a possible fungal infection. Additional sampling and testing of sera is required to interpret the results. . Glucan values of greater than or equal to 80 pg/mL are interpreted as positive. Due to the potential for environmental contamination when transferred to pour-off tubes, which can lead to false positive results, interpret positive results from samples provided in pour-off tubes with caution. Results should be used in conjunction with clinical findings, and should not form the sole basis for a diagnosis or treatment decision. The Fungitell test is approved or cleared for in vitro diagnostic use by the U.[place] Food and Drug Administration. Modifications to the approved package insert have been made and the performance characteristics for these modifications were determined by [facility]. . If sample result is greater than 500 pg/mL, physician may order a titer of the sample. Please contact [facility] if you would like to order a retest of this sample to obtain an actual value. Samples are held for 1 week after initial testing date. Testing Performed At: [facility] [address] [place] [id number] CLIA ID: [id number] Specimen Blood Performing Organization Address City/State/Zipcode Phone Number REFERENCE LAB REFERENCE LAB See results for address. * TSH WITH FREE T4 REFLEX (09/01/2018 1:45 PM CDT) TSH 0.840 0.35 - 5.00 MCU/ML [facility] MAIN LAB Performing Organization Address City/[facility]/Zipcode Phone Number MAIN LAB [address] [address] * CMV QUANT PCR-BLOOD (09/01/2018 1:45 PM CDT) IU/mL CMV Blood <50 IU/mL [facility] The test method detects and quantitates CMV DNA using the Thomas RealTime assay, and is approved by the FDA for monitoring hematopoietic stem cell transplant patients who are undergoing anti-CMV therapy.Please correlate results with the clinical status of the patient. LOG10 CMV <1.7 MAIN LAB CMV DNA Quant PCR CMV DNA NOT DETECTED CMVND-CMV DNA NOT [facility] DETECTED [IU]/mL Performing Organization Address [facility] Phone Number [facility] [address] [place] [address] * LACTIC ACID (BG - RAPID LACTATE) (09/01/2018 1:45 PM CDT) Lactic Acid,BG 1.8 0.5 - 2.0 MMOL/L MAIN LAB Specimen Blood Performing Organization Address [facility] Phone Number [facility] [address] [place] [address] * PERIPHERAL SMEAR (09/01/2018 1:45 PM CDT) Peripheral Smear Microcytic, hypochromic red [facility] cells. Consider iron deficiency anemia, anemia of chronic disease, thalassemia, and sideroblastic anemia. GRANULOCYTOSIS WITH LEFT SHIFT. ABSOLUTE LYMPHOCYTOPENIA. PLATELETS APPEAR NORMAL IN NUMBER AND MORPHOLOGY. Pathologist Signature INTERPRETED BY KLAUS HARRY M.D. [facility] By the PATH SIGNATURE ABOVE, I attest that I have personally formulated the final interpretation expressed in this report and that the above diagnosis is based upon my examination of the slides and/or other material indicated in this report. Specimen Blood Performing Organization Address [facility] Phone Number [facility] [address] [place] [address] * ASPERGILLUS (GALACTOMANNAN) AG (09/01/2018 1:45 PM CDT) Aspergillus Galactomann 0.042 REFERENCE LAB AG Comment: Reference range: <0.500 . Interpretation:Patients with an index value of greater than or equal to 0.5 are considered to be positive for galactomannan antigen. The Platelia(TM) Aspergillus EIA package insert also recommends a new sample be collected from the patient for follow-up testing. Patients with an index value of less than 0.5 are considered to be negative for galactomannan antigen. A negative result may indicate that the patient's result is below the detectable level of the assay. . Negative results do not rule out the diagnosis of Invasive Aspergillosis. Pursuant to the package insert, repeat testing is recommended if the result is negative, but the disease is suspected. Due to the potential for environmental contamination when transferred to pour-off tubes, which can lead to false positive results, interpret positive results from samples provided in pour-off tubes with caution. Results should be used in conjunction with clinical findings, and should not form the sole basis for a diagnosis or treatment decision. . The Platelia Aspergillus Galactomannan EIA is a product of [employer] and is FDA approved for in vitro diagnostic use. Testing Performed At: [facility] [place] [id number] CLIA ID: [id number] Specimen Blood Performing Organization Address City/[facility]/Zipcode Phone Number REFERENCE LAB REFERENCE LAB See results for address. * FIBRINOGEN (09/01/2018 1:45 PM CDT) Fibrinogen 481 (H) 200 - 400 MG/DL MAIN LAB Specimen Blood Performing Organization Address [facility] Phone Number MAIN LAB [address] [place] [address] * TYPE & CROSSMATCH (09/01/2018 1:45 PM CDT) Units Ordered 0 MAIN LAB Crossmatch Expires 09/04/2018 MAIN LAB Record Check FOUND MAIN LAB ABO/RH(D) A POS MAIN LAB Antibody Screen NEG MAIN LAB Electronic Crossmatch YES MAIN LAB Specimen Blood Performing Organization Address [facility] Phone Number MAIN LAB [address] [place] [address] * LDH-LACTATE DEHYDROGENASE (09/01/2018 1:45 PM CDT) Lactate Dehydrogenase 194 100 - 210 U/L MAIN LAB Performing Organization Address [facility] Phone Number MAIN LAB [address] [place] [address] * IONIZED CALCIUM (09/01/2018 1:45 PM CDT) Ionized Calcium 1.26 1.0 - 1.3 MMOL/L MAIN LAB Specimen Blood Performing Organization Address [facility] Phone Number MAIN LAB [address] [place] [address] * VANCOMYCIN TIMED LEVEL (09/01/2018 1:45 PM CDT) Vancomycin Random 8.4 MCG/ML [facility] MAIN LAB Performing Organization Address [facility] Phone Number [facility] MAIN LAB [address] [place] [address] * UA REFLEX CULTURE LABEL (09/01/2018 1:35 PM CDT) UA Reflex Culture LAB LABEL [facility] MAIN LAB Specimen Urine Performing Organization Address [facility] Phone Number [facility] MAIN LAB [address] [place] [address] * URINALYSIS MICROSCOPIC REFLEX TO CULTURE (09/01/2018 1:35 PM CDT) WBCs,UA 10-20 0 - 2 /HPF [facility] MAIN LAB RBCs,UA PACKED 0 - 3 /HPF [facility] MAIN LAB Comment,UA Urine submitted for reflex [facility] MAIN LAB culture if criteria are met:WBC>10, positive nitrite and/or >=1+ leukocyte esterase. If quantity is not sufficient, an addendum will follow. MucousUA TRACE [facility] MAIN LAB Bacteria,UA FEW (A) NEG-NEG [facility] MAIN LAB Squamous Epithelial Cells 0-2 0 - 5 [facility] MAIN LAB Specimen Urine Performing Organization Address [facility] Phone Number [facility] MAIN LAB [address] [place] [address] * URINALYSIS DIPSTICK REFLEX TO CULTURE (09/01/2018 1:35 PM CDT) Color,UA YELLOW [facility] MAIN LAB Turbidity,UA CLEAR CLEAR-CLEAR [facility] MAIN LAB Specific [place]-Urine 1.019 1.003 - 1.035 [facility] MAIN LAB pH,UA 5.0 5.0 - 8.0 [facility] MAIN LAB Protein,UA NEG NEG-NEG [facility] MAIN LAB Glucose,UA NEG NEG-NEG [facility] MAIN LAB Ketones,UA NEG NEG-NEG [facility] MAIN LAB Bilirubin,UA NEG NEG-NEG [facility] MAIN LAB Blood,UA 2+ (A) NEG-NEG [facility] MAIN LAB Urobilinogen,UA NORMAL NORM-NORMAL [facility] MAIN LAB Nitrite,UA NEG NEG-NEG [facility] MAIN LAB Leukocytes,UA TRACE (A) NEG-NEG [facility] MAIN LAB Urine Ascorbic Acid, UA NEG NEG-NEG [facility] MAIN LAB Specimen Urine Performing Organization Address [facility] Phone Number [facility] MAIN LAB [address] [place] [address] * STREPTOCOCCUS PNEUMO AG, URINE (09/01/2018 1:35 PM CDT) Battery Name STREP PNEUMO AG, UR [facility] MAIN LAB Specimen Description URINE [facility] MAIN LAB Special Requests NONE [facility] MAIN LAB Antigen NEGATIVE [facility] MAIN LAB Report Status FINAL [facility] MAIN LAB 09/01/2018 Specimen Urine Performing Organization Address City/[facility]/Zipcode Phone Number [facility] MAIN LAB [address] [place] [address] * LEGIONELLA ANTIGEN URINE,RAN (09/01/2018 1:35 PM CDT) Battery Name LEGIONELLA URINE ANTIGEN [facility] MAIN LAB Specimen Description URINE [facility] MAIN LAB Special Requests NONE [facility] MAIN LAB Antigen NEGATIVE [facility] MAIN LAB Report Status FINAL [facility] MAIN LAB 09/01/2018 Specimen Urine - Urine Performing Organization Address [facility] Phone Number [facility] MAIN LAB [address] [place] [address] * CULTURE-URINE W/SENSITIVITY (09/01/2018 1:35 PM CDT) Battery Name URINE CULTURE [facility] MAIN LAB Specimen Description URINE [facility] MAIN LAB Special Requests NONE [facility] MAIN LAB Culture NO GROWTH [facility] MAIN LAB Report Status FINAL [facility] MAIN LAB 09/03/2018 Specimen Urine - Urine Performing Organization Address [facility] Phone Number [facility] MAIN LAB [address] [place] [address] * NON-DECK BUILDER CYTOLOGY (BODY FLUIDS/TISSUE) (09/01/2018 11:32 AM CDT) Cytology [facility] [employer] [facility] [email or web address] Department of Pathology and Laboratory Medicine [address] [place] [address] Surgical Pathology Office:[phone] :[phone] CYTOLOGY REPORT NAME: CUCO CHONG CYTOLOGY #: [id number] MR #: [id number] ALT ID #: BILLING #: [id number] LOCATION: 63 DATE OF PROCEDURE: 09/01/2018 AGE: 73 SEX: M DATE RECEIVED: 09/04/2018 : 1945TIME RECEIVED:11:32 PHYSICIAN: JE CURRAN MD DATE OF REPORT: 09/05/2018 [facility] SIRI BYRNE MD DATE OF PRINTIN09/05/2018 Material Received: A: Bronchial Alveolar Lavage-RML History: 73-year-old male with a history of hemoptysis Gross Description: ( 1 ThinPrep, 1 DQ direct smear, 1 GMS direct smear) 15ml red cloudy fluid. ############################## ############################## ############ Final Diagnosis: A. Bronchial Alveolar Lavage-RML: Negative for malignant cells. The Grocott stain show numerous yeast with narrow-based budding. See fungal culture which reports light growth ofCandida glabrata. Please also see concurrent flow cytometry report ([id number]). Attestation: By this signature, I attest that I have personally formulated the final interpretation expressed in this report and that the above diagnosis is based upon my examination of the slides and/or other material indicated in this report. +++Electronically Signed Out By+++ jacob/09/05/2018 Interpreted by: MD Toy Singh MD Resident Cytology Performing Organization Address City/State/Zipcode Phone Number [facility] LAB RESULTS * GENERAL RAD CHEST EXTERNAL IMAGING (09/01/2018 6:10 AM CDT) Only the most recent of 4 results within the time period is included. Narrative Performed At This order has been auto finalized and does not contain a result. * PROTEIN/CR RATIO,UR RAN (08/21/2018 11:33 AM CDT) Protein, Random 11 MG/DL [facility] MAIN LAB Creatinine, Random 34 MG/DL [facility] MAIN LAB Protein/CR ratio 0.3 [facility] MAIN LAB Specimen Urine - Urine Performing Organization Address City/State/Zipcode Phone Number [facility] MAIN LAB [address] [place] [address] * IRON + BINDING CAPACITY + %SAT+ FERRITIN (08/21/2018 11:04 AM CDT) Iron 40 (L) 50 - 185 MCG/DL [facility] MAIN LAB Iron Binding-TIBC 434 (H) 270 - 380 MCG/DL [facility] MAIN LAB % Saturation 9 (L) 28 - 42 % [facility] MAIN LAB Ferritin 19 (L) 30 - 300 NG/ML [facility] MAIN LAB Performing Organization Address [facility] Phone Number [facility] MAIN [facility] [address] [place] [address] * GGTP (08/21/2018 11:04 AM CDT) GGTP 27 9 - 64 U/L [facility] MAIN LAB Specimen Blood Performing Organization Address [facility] Phone Number MAIN LAB [address] [place] [address] * 25-OH VITAMIN D (D2 + D3) (08/21/2018 11:04 AM CDT) Vitamin D(25-OH)Total 21.6 (L) 30 - 80 NG/ML MAIN LAB Specimen Blood Performing Organization Address [facility] Phone Number MAIN LAB [address] [place] [address] * TRANSFERRIN (08/21/2018 11:04 AM CDT) Transferrin 291 185 - 336 MG/DL [facility] MAIN LAB Performing Organization Address [facility] Phone Number MAIN LAB [address] [place] [address] * LIPID PROFILE (08/21/2018 11:04 AM CDT) Cholesterol 153 <200 MG/DL [facility] MAIN LAB [...] 130 mg/dL. Specimen Blood Performing Organization Address [facility] Phone Number MAIN LAB [address] [place] [address] from Last 3 Months Insurance Payer Benefit Subscriber ID Type Phone Address Plan / Group MEDICARE MEDICARE xxxxxxxxxxx Medicare PART A AND B BCBS [place] BCBS xxxxxxxxxxxx Medicare SUPPLEMENT Advance Directives Patient has advance care planning documents, and code status on file. For more information, please contact: [facility] [address] [facility] [address] [place] [address] Date Inactivated Comments Code Status Date Activated 09/07/2018 5:53 PM Full Code 09/01/2018 1:17 PM Provider has discussed Code Status No, more discussion w/Patient or Family? needed 02/20/2018 6:31 PM Full Code 02/17/2018 4:20 PM Provider has discussed Code Status Yes w/Patient or Family? 02/17/2018 4:20 PM Full Code 02/17/2018 11:37 AM Provider has discussed Code Status No, more discussion w/Patient or Family? needed 03/17/2011 1:21 PM Full Code 03/14/2011 7:00 PM Provider has discussed Code Status Yes w/Patient or Family? 03/14/2011 7:00 PM Full Code 03/14/2011 6:14 PM Provider has discussed Code Status Yes w/Patient or Family?
--- OUTSIDE RECORDS SUMMARY | 2018-11-18 05:25 | XMS REPORT | Encounter Summary ---
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 Role Phone Jamie Sanders [...] Li MD Unavailable Reason for Visit * Auth/Cert Referred By Contact Referred To Contact Status Reason Specialty Diagnoses / Procedures Diagnoses Respiratory failure (HCC) Sepsis Respiratory failure Encounter Details Care Team Description Date Type Department Deepali Byrne MD [address] [place] [address] [phone] Je Curran MD [address] [place] [address] [phone] Vladimir Mckinney MD [address] [facility] [place] [address] [place] [address] [phone] Status post liver transplant (HCC) 09/01/2018 Hospital 63 - TICU - Encounter [facility] 6th fl Unit 09/07/2018 63 [address] [place] [address] Social History Date Tobacco Use Types Packs/Day [...] travel history available. as of this encounter Last Filed Vital Signs Time Taken Vital Sign Reading 09/07/2018 12:00 PM CDT Blood Pressure 138/70 09/07/2018 1:00 PM CDT Pulse 123 09/07/2018 12:00 PM CDT Temperature 36.8 C (98.2 F) - Respiratory Rate - 09/07/2018 1:00 PM CDT Oxygen Saturation 94% - Inhaled Oxygen - Concentration 09/06/2018 11:54 AM CDT Weight 115.7 kg (255 lb) 09/06/2018 11:54 AM CDT Height 182.9 cm (6') 09/06/2018 11:54 AM CDT Body Mass Index 34.58 in this encounter Functional Status Date of Assessment [...] cognitive impairment: No as of this encounter Discharge Summaries * Godinez, February - 09/07/2018 3:16 PM CDT Physician Discharge Summary Name: Cuco Gilbert Date Of : 1945 Age: 73 years Admit date: 09/01/2018 Discharge date: 09/07/2018 Attending Physician: Vladimir Mckinney MD Service: Med ICU 3 - 0103 Physician Summary completed by: Moises Azevedo APRN Reason for hospitalization: Accepted on transfer for further evaluation and management of acute hypoxic respiratory failure Significant PMH: Past Medical History: Diagnosis Date A-fib (HCC) Arrhythmia 2004 approx PVCs controlled by medication Atrial fibrillation (HCC) 01/31/11 Biliary stent obstruction 03/15/11 Removal of stent with sphincterectomy of anastamosis site CAD (coronary artery disease) CABG x 5 [facility] [place] [place] Cholangitis 03/15/11 CKD (chronic kidney disease) 04/02/10 CMV (cytomegalovirus infection) (HCC) 01/31/11 DM (diabetes mellitus) (HCC) 04/01/10 Esophageal varices (HCC) 2010 With ligation H/O: GI bleed 04/02/10 History of liver transplant (HCC) HTN (hypertension) 1999 Hyperkalemia 04/01/10 Hyperlipidemia 04/01/10 EMERSON (nonalcoholic steatohepatitis) Pancytopenia 04/02/10 Sepsis(995.91) 01/31/11 URI (upper respiratory infection) 03/14/11 Allergies: Demerol [meperidine] and Morphine Admission Physical Exam notable for: General appearance: sedated but arousable, no distress Head: Normocephalic, without obvious abnormality Eyes: conjunctivae/corneas clear. PERRL 3+ Mouth/throat: Moist mucous membranes, ett in place Neck: supple, symmetrical, trachea midline Lungs: R sided slightly coarse, diminished bilat bases Heart: irregular rate and rhythm Abdomen: soft, non-tender apperaing. Bowel sounds normal. Extremities: extremities normal, atraumatic, some generalized edema Neurologic: arousable, Some UE muscular twitching R>L, follows commands in extremities Peripheral pulses: 2+ and symmetric Cap Refill: <3 sec Skin: Skin color, texture, turgor normal. No rashes or lesions in exposed areas Admission Lab/Radiology studies notable for: Recent Labs 09/01/18 1345 NA 135* K 4.4 CL 103 CO2 23 GAP 9 BUN 49* CR 2.08* GLU 222* CA 8.9 ALBUMIN 3.0* MG 1.7 PO4 4.5 TSH 0.840 Recent Labs 09/01/18 1345 09/01/18 1930 WBC 20.0* -- HGB 13.4* -- HCT 42.3 -- PLTCT 223 -- INR 8.2* -- AST 7 -- ALT 4* -- ALKPHOS 64 -- TNI 0.12* 0.09* Estimated Creatinine Clearance: 41.6 mL/min (A) (based on SCr of 2.08 mg/dL (H)) . Vitals: 09/01/18 1326 09/01/18 1400 09/01/18 1658 Weight: 118.4 kg (261 lb 0.4 oz) (S) 115.9 kg (255 lb 8.2 oz) 115.9 kg (255 lb 8.2 oz) Recent Labs 09/01/18 1345 09/01/18 1533 PHART 7.28* 7.29* PO2ART 113* 146* CHEST SINGLE VIEW 09/01/2018 Clinical history: hypoxia. Comparison: Chest radiograph 02/17/2018 Findings: There has been previous median sternotomy. An endotracheal tube is in place, with the tip above the joe. A gastric tube courses below the diaphragm, with the tip out of the [id number]. A right PICC is in place, with [...] Bilateral pleural effusions, larger on the right. CT CHEST, 09/01/2018 Clinical Indication: Male, 73 years old. Respiratory [...] effusion. Prior median sternotomy and CABG. Dense beaver coronary artery calcification and moderate calcification of [...] sternotomy and CABG with mild cardiomegaly, dense beaver coronary artery calcification, and aortic valve calcification. 3. Mildly prominent mediastinal lymph nodes which are likely reactive. 4. Persistent upper abdominal ascites. 5. Mild diffuse hepatic steatosis. CT HEAD , 09/01/2018 HISTORY: , focal twitching, supratherapeutic INR, TECHNIQUE: [...] disease, likely related to chronic microvascular ischemia. Brief Hospital Course: The patient was admitted and the following issues were addressed during this hospitalization: Cuco Membreno a 73 y.o.male with PMH significant for ESLD s/p OLT, CAD , HTN, HLD, CHF, a fib, DM, CKD who presented to [facility] on early 08/31/18 with complaint of cough and hemoptysis. Was febrile upon arrival. With worsening respiratory failure through the course of the day/night , pt required intubation and was then transferred to [facility] on for further management on 09/01/18. Requiredpressor initially for shock, which was weaned off on 09/03. Echocardiogram on 09/01 concerning for EF 20% (decreased from previous EF 40%). In A.fib with RVR with stable BP - resumed PO metoprolol and lisinopril on 09/05. Repeat Echo on 09/06/18 with improved EF to 45-50%. 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 Cardiology recommended increasing metoprolol to 100mg daily, resuming spironolactone 25mg daily, continuing lisinopril and discontinuing ASA (on warfarin). Cardiology also recommended additional diuresis as CVP was elevated and noted 15-20 lb weight gain, so lasix was increased to 80mg twice daily. Self-extubated on 09/02/18 am but has remained stable and oxygen needs have improved, now down to room air. CT chest consistent with multi-focal pneumonia. BAL performed 09/01; cultures + klebsiella. Abx narrowed to augmentin only, completed 7 day course. Condition at Discharge: Stable Discharge Diagnoses: Hospital Problems Active Problems CKD (chronic kidney disease) Atrial fibrillation (HCC) Status post liver transplant (HCC) DM (diabetes mellitus) (HCC) Delirium Resolved Problems RESOLVED: Pneumonia RESOLVED: Septic shock (HCC) RESOLVED: Acute respiratory failure with hypoxia and hypercapnia (HCC) RESOLVED: Shock (HCC) RESOLVED: Hemoptysis RESOLVED: Acute on chronic systolic heart failure (HCC) RESOLVED: Supratherapeutic INR RESOLVED: Atrial fibrillation with rapid ventricular response (HCC) Surgical Procedures: None Significant Diagnostic Studies and Procedures: noted in brief hospital course Consults: Cardiology and Hepatology Patient Disposition: Home Patient instructions/medications: CBC Standing Status: Future Standing Exp. Date: 09/07/19 Protime INR (PT) Standing Status: Future Standing Exp. Date: 09/07/[address] Li at discharge that you have an INR due on 09/12/18. If you are not notified on the day of your INR draw with the result and your dosage instructions, please call your doctor's office to get this information. Basic Metabolic Panel (BMP) Standing Status: Future Standing Exp. Date: 09/07/19 CBC Standing Status: Future Standing Exp. Date: 09/07/19 PROTIME INR (PT) Standing Status: Future Standing Exp. Date: 09/07/19 COMPREHENSIVE METABOLIC PANEL Standing Status: Future Standing Exp. Date: 09/07/19 Activity as Tolerated It is important to keep increasing your activity level after you leave the hospital. Moving around can help prevent blood clots, lung infection (pneumonia ) and other problems. Gradually increasing the number of times you are up moving around will help you return to your normal activity level more quickly. Continue to increase the number of times you are up to the chair and walking daily to return to your normal activity level. Begin to work toward your normal activity level at discharge Diabetes Information Diabetes is managed by checking your blood sugar, taking your medicine, exercising and eating healthy. Target blood sugar range is 70 - 140 mg/dL Check blood sugars three times daily Treatment of low blood sugars: If your blood sugar is low, you may feel shaky, weak, sweaty, hungry, confused, or have a headache. Check your blood sugar with a glucose meter. If it is below 70 treat with one of the following: juice (4 oz. ) or regular soda (4 oz.) or 4-5 hard candies. Recheck your blood sugar in 15 minutes and repeat this until level is above 70. Follow up with your doctor and inform them of any changes to your diabetes plan of care. *Talk with your doctor before stopping any medication or if you need refills on supplies or medications. *Eat three meals each day at regularly scheduled intervals (about 4-5 hours apart). It helps to control your blood sugar. Each meal should have equal amounts of carbohydrates. *Check your feet every day for blisters, cuts, and redness. Call your doctor if you have an infection, wound or cut anywhere on your feet. *Get a dilated eye exam each year. *Wear a medic alert ID if you are on insulin. *In an emergency contact your healthcare provider or go to the emergency room. A free class is available for diabetes education. The class is held in the [facility] on the 5th floor of the Medical Office Building, every Tuesday from 10:00-12:00 noon and every Tuesday 3:00 pm - 5:00 pm. The class is not held on actual or observed holidays. You do not need an appointment for this and we will not bill your insurance. More diabetes education and individual nutrition appointments are offered at the [facility]. Most insurance plans cover these services if you have a referral from your doctor. Call [phone], option 3 or go to [email or web address] for details. Report These Signs and Symptoms Please contact your doctor if you have any of the following symptoms: temperature higher than 100 degrees F, uncontrolled pain, persistent nausea and/ or vomiting, difficulty breathing, chest pain, severe abdominal pain, headache, unable to urinate, unable to have bowel movement or drainage with a foul odor Questions About Your Stay For questions or concerns regarding your hospital stay. Call [phone] Discharging attending physician: VLADIMIR MCKINNEY [[id number]] Diabetic Diet You should eat between 1600 and 2000 calories per day. This is equal to 60g ( grams) of carbohydrates per meal, and 30g of carbohydrates for a bedtime snack. If you have questions about your diet after you go home, you can call a dietitian at [phone]. Return Appointment You have an appointment with JONO Wallace with Dr. Li on September 12 at 3:30 Warfarin Information WARFARIN INFORMATION Notify Dr. Li at discharge that you have an INR due on 09/12/18. If you are not notified on the day of your INR draw with the result and your dosage instructions, please call your doctor's office to get this information. Medication regimen: You will be discharged on warfarin. Warfarin is a blood thinner medication. The dose you are currently taking may change based on blood levels/INR upon follow-up. It is very important to continue taking the medication as prescribed. Do not change your dose unless instructed by a healthcare professional. Warfarin requires monitoring of blood levels/INR on a regular basis. You should tell your healthcare professionals that you take warfarin. Follow-up: Follow-up on all scheduled appointments. Warfarin dosing may change based on your blood level/INR. If not done already, you will want to schedule an appointment after discharge to follow-up on your blood levels/INR. You may need to follow-up multiple times during the first several weeks after hospital discharge. Drug Interactions: Talk with your healthcare professional prior to starting or stopping any medications. This includes prescription, zfrp-diz-onaxshi, natural supplements , vitamins, and minerals. Many medications may increase or decrease your blood level/INR. Dietary Advice: Certain foods with vitamin K may alter the effects of warfarin. Green, leafy vegetables (examples: broccoli, spinach, kale) are some vegetables that may change blood levels/INR. It is important to keep a consistent diet. Avoid any major changes in diet when taking warfarin. Please notify a health professional before changing your eating habits. Adverse Reactions: The most common reaction seen with warfarin is an increased risk of bleeding. Bruising may also be a common occurrence while taking this medication. Reasons to go to the emergency department: *Falling/hitting your head, with periods of headaches, vision changes, dizziness , loss of consciousness *Heavy pressure on your chest, difficulty breathing, shortness of breath. This may be a sign of a clot in your lungs. *Blood-tinged vomiting, or what looks like coffee-grounds. This may be a sign of a stomach bleed. *Bright red urine. This may be a sign of a bleed in your bladder. *Extreme temperature changes, swelling, and pain in your thighs. This may be a sign of a clot in your legs. Heart Failure Information You are at risk for readmission to the hospital because of fluid overload. There are steps you can take to lower your risk: *Continue your current heart medications. Changes made have been made during your hospital stay. *Remember to weigh yourself every morning, first thing after you urinate, and write down your weigh. Take this record to your doctor's appointments. *Chart your symptoms - fatigue, shortness of breath, swelling, etc. Immediately report any worsening. *Remember to consume no more than 2,000mg (milligrams) of sodium daily. Watch out for packaged, processed, canned, and restaurant foods especially. *If any of your symptoms worsen, or if you gain more than 2 pounds in 24 hours, or 5 pounds in a week, call your fitness club manager immediately. EARLY REPORTING OF THESE CHANGES IS VERY IMPORTANT. Condition Code Current Discharge Medication List CONTINUE these medications which have been CHANGED or REFILLED Details atorvastatin (LIPITOR) 40 mg tablet Take one tablet by mouth at bedtime daily. Qty: 30 tablet, Refills: 0 PRESCRIPTION TYPE: Normal furosemide (LASIX) 40 mg tablet Take two tablets by mouth twice daily. After having your labs checked, your doctors may increase your dose back to 120 mg by mouth once daily PRESCRIPTION TYPE: No Print insulin detemir(+) (LEVEMIR FLEXTOUCH) 100 unit/mL (3 mL) injection pen 20 U pm plus 2 units to prime pen each time. Qty: 4 box, Refills: 3 PRESCRIPTION TYPE: No Print Comments: Authorizing physician: Georgette Simon MD Associated Diagnoses: Controlled type 2 diabetes mellitus with diabetic nephropathy, with long-term current use of insulin (HCC) metoprolol XL (TOPROL XL) 100 mg extended release tablet Take one tablet by mouth daily. Qty: 30 tablet, Refills: 0 PRESCRIPTION TYPE: Normal spironolactone (ALDACTONE) 25 mg tablet Take one tablet by mouth daily. Take with food. Qty: 90 tablet, Refills: 3 PRESCRIPTION TYPE: No Print tacrolimus (PROGRAF) 0.5 mg capsule Take one capsule by mouth twice daily. Qty: 60 capsule, Refills: 0 PRESCRIPTION TYPE: Normal Comments: Diagnosis code: Z94.4, dose change !! warfarin (COUMADIN) 2.5 mg tablet Take three tablets by mouth as directed. Take 2.5 mg by mouth two times weekly on Tuesday & Tuesday. Take in the evening. Qty: 90 tablet, Refills: 3 PRESCRIPTION TYPE: No Print !! - Potential duplicate medications found. Please discuss with provider. CONTINUE these medications which have NOT CHANGED Details allopurinol (ZYLOPRIM) 100 mg tablet Take 100 mg by mouth daily. PRESCRIPTION TYPE: Historical Med blood sugar diagnostic (GLUCOSE METER TEST STRIP) test strip Use 1 Strip as directed three times daily. accuchek wild PRESCRIPTION TYPE: Historical Med Blood-Glucose Meter kit Accuchek WILD METER Qty: 1 Kit, Refills: 0 PRESCRIPTION TYPE: Print Associated Diagnoses: Diabetes mellitus without complication (HCC) Cholecalciferol (Vitamin D3) 1,000 unit PO Cap Take 1 Cap by mouth Twice Daily. Qty: 60 Cap, Refills: 3 PRESCRIPTION TYPE: Normal diclofenac(+) (VOLTAREN) 1 % topical gel Apply 4 g topically to affected area twice daily. PRESCRIPTION TYPE: Historical Med Docusate Calcium 50 mg cap Take 100 mg by mouth at bedtime daily. PRESCRIPTION TYPE: Historical Med ergocalciferol (VITAMIN D-2) 50,000 unit capsule Take one capsule by mouth every 7 days for 12 doses. Qty: 12 capsule, Refills: 0 PRESCRIPTION TYPE: No Print insulin aspart (NOVOLOG) 100 unit/mL flexPEN Inject 9 units with breakfast, 9 units with lunch, and 11 units with dinner. Plus 2 for every 40 >140 Max 80. Qty: 75 mL, Refills: 3 PRESCRIPTION TYPE: Print Comments: Authorizing physician: Georgette Simon MD Associated Diagnoses: Type II or unspecified type diabetes mellitus without mention of complication, not stated as uncontrolled lidocaine 5 % oint topical ointment Apply topically to affected area three times daily. PRESCRIPTION TYPE: Historical Med lisinopril (PRINIVIL; ZESTRIL) 5 mg tablet Take 1 tablet by mouth daily. Qty: 90 tablet, Refills: 3 PRESCRIPTION TYPE: Normal omeprazole DR(+) (PRILOSEC) 40 mg capsule Take 40 mg by mouth daily before breakfast. PRESCRIPTION TYPE: Historical Med other medication 1 Dose. CHAZ COMFORT get for feet. PRESCRIPTION TYPE: Historical Med pregabalin (LYRICA) 150 mg capsule Take 150 mg by mouth twice daily. PRESCRIPTION TYPE: Historical Med rOPINIRole (REQUIP) 1 mg tablet Take 1 mg by mouth twice daily. PRESCRIPTION TYPE: Historical Med senna/docusate (SENOKOT-S) 8.6/50 mg tablet Take 1 tablet by mouth daily. PRESCRIPTION TYPE: Historical Med Trolamine Salicylate 10 % crea Apply topically to affected area twice daily as needed. PRESCRIPTION TYPE: Historical Med ursodiol (RANJIT) 250 mg tablet Take 1 tablet by mouth twice daily with meals. Qty: 60 tablet, Refills: 3 PRESCRIPTION TYPE: Normal !! warfarin (COUMADIN) 5 mg tablet Take 1 tablet by mouth as directed. Take 5 mg by mouth five times weekly on Tuesday, Tuesday, Tuesday, , Tuesday. Take in the evening. Qty: 90 tablet, Refills: 3 PRESCRIPTION TYPE: Normal !! - Potential duplicate medications found. Please discuss with provider. The following medications were removed from your list. This list includes medications discontinued this stay and those removed from your prior med list in our system aspirin 81 mg chewable tablet cyanocobalamin(DIL) (VITAMIN B-12) 100 mcg/mL fish oil- omega 3-DHA/EPA 300/1,000 mg capsule HYDROcodone/acetaminophen (NORCO) 5/325 mg tablet mycophenolate mofetil (CELLCEPT) 250 mg PO capsule oxyCODone (ROXICODONE) 5 mg tablet oxyCODONE (ROXICODONE, OXY-IR) 5 mg tablet oxycodone(+) (ROXICODONE, OXY-IR) 10 mg tablet Scheduled appointments: Apr 16, 2019 11:20 AM CDT Return Patient with Valdemar Phillips MD [facility] ([facility] ) [facility] 1st Fl [address] [facility] [id number] Pending items needing follow up: Had elevated INR on admission so warfarin was held initially. On day of discharge INR was 1.4. To resume prior dose warfarin on discharge and have INR level checked on 09/12/18. Lasix was increased to 80mg twice daily. To have chemistry level checked on . Signed: Moises Azevedo APRN 09/07/2018 cc: Primary Care Physician: Jamie Sanders III Verified Referring physicians: Self, Referral Additional provider(s): [place] Li in this encounter Discharge Instructions * Discharge Instr - Case Management* Sol Simmons RN - 09/06/2018 12:54 PM CDT Home health nurse will call you tomorrow to arrange a time for the first visit. Please be aware nurse is coming from other patient's home and will provide a time frame for visit and not a specific time. [employer] [phone] in this encounter Medications at Time of Discharge Start Date End Date Medication Sig Dispensed Refills allopurinol (ZYLOPRIM) Take 100 mg 0 100 mg tablet by mouth daily. 09/07/2018 atorvastatin (LIPITOR) 40 Take one 30 tablet 0 mg tablet tablet by mouth at bedtime daily. blood sugar diagnostic Use 1 Strip 0 (GLUCOSE METER TEST as directed STRIP) test strip three times daily. accuchek wild 03/04/2017 Blood-Glucose Meter Accuchek 1 Kit 0 kitIndications: Diabetes WILD METER mellitus without complication (HCC) 12/16/2010 Cholecalciferol (Vitamin Take 1 Cap by 60 Cap 3 D3) 1,000 unit PO Cap mouth Twice Daily. diclofenac(+) (VOLTAREN) Apply 4 g 0 1 % topical gel topically to affected area twice daily. Docusate Calcium 50 mg Take 100 mg 0 cap by mouth at bedtime daily. 09/07/2018 furosemide (LASIX) 40 mg Take two 0 tablet tablets by mouth twice daily. After having your labs checked, your doctors may increase your dose back to 120 mg by mouth once daily 03/22/2014 insulin aspart (NOVOLOG) Inject 9 75 mL 3 100 unit/mL units with flexPENIndications: Type breakfast, 9 II or unspecified type units with diabetes mellitus without lunch, and 11 mention of complication, units with not stated as dinner. Plus uncontrolled 2 for every 40 >140 Max 80. 09/07/2018 insulin detemir(+) 20 U pm plus 4 box 3 (LEVEMIR FLEXTOUCH) 100 2 units to unit/mL (3 mL) injection prime pen penIndications: each time. Controlled type 2 diabetes mellitus with diabetic nephropathy, with long-term current use of insulin (HCC) lidocaine 5 % oint Apply 0 topical ointment topically to affected area three times daily. 02/20/2018 lisinopril (PRINIVIL; Take 1 tablet 90 tablet 3 ZESTRIL) 5 mg tablet by mouth daily. 09/08/2018 metoprolol XL (TOPROL XL) Take one 30 tablet 0 100 mg extended release tablet by tablet mouth daily. omeprazole DR(+) Take 40 mg by 0 (PRILOSEC) 40 mg capsule mouth daily before breakfast. other medication 1 Dose. CHAZ 0 COMFORT get for feet. pregabalin (LYRICA) 150 Take 150 mg 0 mg capsule by mouth twice daily. rOPINIRole (REQUIP) 1 mg Take 1 mg by 0 tablet mouth twice daily. senna/docusate Take 1 tablet 0 (SENOKOT-S) 8.6/50 mg by mouth tablet daily. 09/07/2018 spironolactone Take one 90 tablet 3 (ALDACTONE) 25 mg tablet tablet by mouth daily. Take with food. 09/07/2018 tacrolimus (PROGRAF) 0.5 Take one 60 capsule 0 mg capsule capsule by mouth twice daily. Trolamine Salicylate 10 % Apply 0 crea topically to affected area twice daily as needed. 02/20/2018 ursodiol (RANJIT) 250 mg Take 1 tablet 60 tablet 3 tablet by mouth twice daily with meals. 09/07/2018 warfarin (COUMADIN) 2.5 Take three 90 tablet 3 mg tablet tablets by mouth as directed. Take 2.5 mg by mouth two times weekly on Tuesday & Tuesday. Take in the evening. 02/20/2018 warfarin (COUMADIN) 5 mg Take 1 tablet 90 tablet 3 tablet by mouth as directed. Take 5 mg by mouth five times weekly on Tuesday, Tuesday, Tuesday, , Tuesday. Take in the evening. 08/31/2018 11/17/2018 ergocalciferol (VITAMIN Take one 12 capsule 0 D-2) 50,000 unit capsule capsule by mouth every 7 days for 12 doses. as of this encounter Progress Notes * Vladimir Mckinney MD - 09/07/2018 3:48 PM CDT Cuco Gilbert Today's Date: 09/07/2018 Admission Date: 09/01/2018 LOS: 6 days Assessment/Plan: Active Problems: CKD (chronic kidney disease) Atrial fibrillation (HCC) Status post liver transplant (HCC) DM (diabetes mellitus) (HCC) Pneumonia Septic shock (HCC) Acute respiratory failure with hypoxia and hypercapnia (HCC) Shock (HCC) Hemoptysis Acute on chronic systolic heart failure (HCC) Supratherapeutic INR Atrial fibrillation with rapid ventricular response (HCC) Delirium Hospital course: Cuco Gilbertis a 73 y.o.male with PMH significant for ESLD s/p OLT, CAD, HTN, HLD, CHF, a fib, DM, CKD who presented to [facility] on early 08/31/18 with complaint of cough and hemoptysis. Was febrile upon arrival. With worsening respiratory failure through the course of the day/night, pt required intubation and was then transferred to [facility] on for further management on 09/01/18. Requiredpressor initially for shock, which was weaned off on 09/03. Echocardiogram on 09/01 concerning for EF 20% ( decreased from previous EF 40%). In A.fib with RVR with stable BP - resumed PO metoprolol and lisinopril on 09/05. Repeat Echo on 09/06/18 with improved EF to 45-50%. 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 Cardiology recommended increasing metoprolol to 100mg daily, resuming spironolactone 25mg daily, continuing lisinopril and discontinuing ASA (on warfarin). Cardiology also recommended additional diuresis as CVP was elevated and noted 15-20 lb weight gain, so lasix was increased to 80mg twice daily. Self-extubated on 09/02/18 am but has remained stable and oxygen needs have improved, now down to room air. CT chest consistent with multi-focal pneumonia. BAL performed 09/01; cultures + klebsiella. Abx narrowed to augmentin only, completed 7 day course. Stable for discharge NEURO Twitching/shaking movements (resolved) - On admission, pt experienced intermittent, somewhat rhythmic muscular twitches of UE, most significantly RUE, which family reports is not a chronic symptom - tacro level WNL as below - did experience syncope ~2 weeks prior to admit which was reportedly worked up by fitness club manager without cause determined per family - CT head without acute hemorrhage - awake, alert and appropriate onm exam Plan - Monitor Delirium (improved) - Trazodone, melatonin QHS - DC on discharge PULM Acute hypoxic Respiratory failure, PNA, Hemoptysis (hypoxia resolved) - Presented to OSH ED with c/o cough, hemoptysis which was sudden onset Thurs AM between [id number]. - OSH course: - initial ABG 7.27/55/79/25 on ?Comfort flow, 35%, 20L - Repeat ABG 09/01 7.2/66/113/25 - unclear fiO2 - Post intubation - 7.33/52/142/26 - BNP 299 - was reportedly febrile to 102 on arrival - Given abx as below - CXR with R>L consolidation - CT scan c/w bilat GGO/consolidation concerning for PNA, also with some e/o pulm edema/small effusion which is less significant - Bronch with BAL completed, see procedure note for findings - Self extubated 09/02; now on RA - 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 but has not been wearing lately Plan - ID as below - Pulm hygiene - encourage CPAP use CV Shock (resolved), Hx HFrEF, CAD, HTN, A fib w/ RVR - Shock ddx likely septic vs cardiogenic, less likely hypovolemia - FIELD 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 meds unclear - VA list includes atorvastatin, lasix, metoprolol, aldactone , asa, lisinopril, warfarin though pt reports not taking metoprolol or lisinopril - Started on NE at OSH, able to wean off briefly upon arrival but required again - Off pressor since 0200 this morning - S/p stress dose steroids at OSH - Trop 0.12->0.09->0.12, BNP 377 - Per family, received multiple bags of IVF at OSH - Imaging as above - Echo with EF 20%, mild , moderately reduced RV fx - Previous echo in 02/2018 with EF 30%, no mention of RV dysfunction, mild aortic stenosis - Echo 09/06: Improved LVF: EF ~ 50%. RV normal size with moderate reduced EF. RA/LA enlarged - Obtained cardiology records from pt's outpt cards- Dr. Li in [place] - echo beginning of aug with EF 50% Plan - ID as below - continue metoprolol xl- increased to 100mg daily - Continue lisinopril - DC'd ASA and started spironolactone - Give one dose IV lasix 80mg today - INcrease FIELD 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 lasix to 80 mg BID on discharge - Added atorvastatin (OK with hepatology) - Has f/u appt with Dr. Li's office on 09/12/18 at 3:30 - with labs GI Hx ESLD s/p OLT 2010 - FIELD 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 meds include tacro and cellcept which he has not taken since Wed PM - MELD-Na score: 14 at 09/06/2018 3:50 AM MELD score: 14 at 09/06/2018 3:50 AM Calculated from: Serum Creatinine: 1.49 MG/DL at 09/06/2018 3:50 AM Serum Sodium: 139 MMOL/L (Rounded to 137) at 09/06/2018 3:50 AM Total Bilirubin: 0.9 MG/DL (Rounded to 1) at 09/06/2018 3:50 AM INR(ratio): 1.4 at 09/06/2018 3:50 AM Age: 73 years Plan - Consult hepatology for recs with immunosuppression - daily tacro levels - goal 3-[address] Russell - Per Hepatology continue Tacro and hold cellcept on discharge, Hepatology will follow as outpatient FEN - Speech evaluated patient - advanced diet as tolerated RENAL CKD - Baseline cr around 2, 2.08 on admit, BUN 49 - Cr 1.24, Bun 26, K 4.0, Mg 1.8 - I/O: Net negative 473ml last 24 hours with 1.1L out in urine Plan - Monitor I/O closely - Avoid nephrotoxins, hypotension as able - Diuresis as above 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 with breakfast/lunch, 14U with dinner plus sliding scale as well as Levemir 36U QAM, 18U Qevening Plan - Continue NPH and SSI for now with close monitoring; clarify captain waiter/waitress regimen today ID Septic shock, PNA - WBC on admit to OSH 5.5>peaked at 29; febrile to 102 on admit to OSH - Imaging as above - Procal 4.25 - Received cefepime, zosyn and vanc at OSH - UA with 1+ leuk at OSH - Strep penumo/legionella neg - RVP neg - Fungitell 105, aspergillus negative - BAL 09/01 - PJP, RVP, aspergillus, galactomannan Neg - sputum cx - klebsiella - angel susceptible - HSV, CMV neg - histoplasma, aspergillus - in process - afb, fungal cx with yeast/briseida Plan - complete 7 days with augmentin - last dose today (09/07) - 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, low threshold to add viral coverage if pt decompensates HEME Supratherapeutic INR - FIELD 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 warfarin - family reports compliance - OSH INR 3.6 > 8.2 - Received unknown amount of vit K PO at OSH [facility], TEG WNL though with hemoptysis - given ffp and vit K upon arrival - pts reports pt was started on indomethacin on Tuesday for gout by PCP - INR 1.4 today Plan - Per FIELD 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 dose 7.5mg on /Tuesday and takes 5mg the other 5 days - Discussed with pharmacy, suspect high INR on admit 2/2 acute illness, can resume FIELD 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 regimen and will have INR level checked on 09/12 MSK Hx Gout - can resume FIELD 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 meds on discharge PPX: Lines: piv Drains: na GI prophy: na DVT prophy: warfarin PT/OT: yes Insulin: yes Code Status: full Dispo: stable for discharge to home Patient seen and discussed with Dr. Alex Azevedo APRN Pulmonary/Critical Care Pager [phone] Team Pager [phone] ATTESTATION I personally performed the slaughter portions of the E/M visit, discussed case with Nurse Practitioner and concur with documentation of history, physical exam, assessment, and treatment plan unless otherwise noted. Patient feels well. Resolution of delirium. Improved renal function from previous evaluations. Complicated discharge given patient's immunocompromised status, changing hemodynamics with underlying heart failure and combination of physicians within and outside of the system. Patient has rapid follow-up with his fitness club manager from outside the system and patient was encouraged to do daily weights as well as have laboratory evaluation with follow-up. Will need close attention to titration of diuretics and heart failure regimen. I spent > 35 minutes in arranging discharge today. Staff name: Vladimir Mckinney MD Date: 09/07/2018 Subjective: Cuco Gilbert is a 73 y.o. male who is awake and alert, sitting up in the chair. Slept well overnight. Tolerating diet and activity . Asking to go home. at bedside ROS: No c/o CP, SOA, N/V/D, headache or rash Objective: Medications: Scheduled Meds: amoxicillin/K clavulanate (AUGMENTIN) tablet 875 mg 875 mg Oral BID w/meals furosemide (LASIX) tablet 80 mg 80 mg Oral QDAY insulin aspart U-100 (NOVOLOG FLEXPEN) injection PEN 0-14 Units 0-14 Units Subcutaneous 5 X Day insulin glargine (LANTUS SOLOSTAR, BASAGLAR) injection PEN 20 Units 20 Units Subcutaneous QHS(22) lidocaine (LIDODERM) 5 % topical patch 1 patch 1 patch Topical QDAY lisinopril (PRINIVIL; ZESTRIL) tablet 5 mg 5 mg Oral QDAY melatonin tablet 5 mg 5 mg Oral QHS metoprolol XL (TOPROL XL) tablet 100 mg 100 mg Oral QDAY pantoprazole (PROTONIX) injection 40 mg 40 mg Intravenous QDAY pregabalin (LYRICA) capsule 150 mg 150 mg Oral BID senna (SENOKOT) oral syrup 8.8 mg 8.8 mg Oral BID spironolactone (ALDACTONE) tablet 25 mg 25 mg Oral QDAY tacrolimus (PROGRAF) capsule 0.5 mg 0.5 mg Oral BID warfarin (COUMADIN) tablet 4 mg 4 mg Oral QHS Continuous Infusions: PRN and Respiratory Meds:acetaminophen Q6H PRN, amitriptyline/gabapentin/emu oil (#) Q8H PRN, loperamide PRN, magnesium sulfate PRN AND Magnesium PRN AND* * Notify Physician Ongoing, oxyCODONE Q6H PRN, potassium chloride SR PRN OR potassium chloride PRN, simethicone Q6H PRN, traZODone QHS PRN, warfarin, pharmacy to manage Per Pharmacy Vital Signs: Last Filed Vital Signs: 24 Hour Range BP: 100/49 (09/07 0400) Temp: 36.8 C (98.2 F) (09/07 400) Pulse: 96 (09/07 400) Respirations: 19 PER MINUTE (09/07 400) SpO2: 94 % (09/07 400) O2 Delivery: None (Room Air) (09/07 400) SpO2 Pulse: 94 (09/07 400) Height: 182.9 cm (72") (09/06 1154) BP: (100-157)/(49-98) Temp: [36.4 C (97.6 F)-37.4 C (99.4 F)] Pulse: [96-131] Respirations: [17 PER MINUTE-24 PER MINUTE] SpO2: [91 %-95 %] O2 Delivery: None (Room Air) Intensity Pain Scale (Self Report): Asleep (09/07/18 0400) Vitals: 09/01/18 1400 09/01/18 1658 09/06/18 1154 Weight: (S) 115.9 kg (255 lb 8.2 oz) 115.9 kg (255 lb 8.2 oz) 115.7 kg (255 lb) Intake/Output Summary: (Last 24 hours) Intake/Output Summary (Last 24 hours) at 09/07/18 0752 Last data filed at 09/07/18 0000 Gross per 24 hour Intake 702 ml Output 1175 ml Net -473 ml Physical Exam: General appearance: alert, no distress Head: Normocephalic, without obvious abnormality Eyes: conjunctivae/corneas clear. PERRL Mouth/throat: Moist mucous membranes, Neck: supple, symmetrical, trachea midline Lungs: coarse to auscultation bilaterally Heart: irregular rate and rhythm Abdomen: soft, non-tender. Bowel sounds +. Extremities: extremities normal, atraumatic Neurologic: Non focal, intermittently forgetful Peripheral pulses: 2+ and symmetric Cap Refill: <3 sec Skin: Skin color, texture, turgor normal. No rashes or lesions Artificial airway: None Ventilator/ Respiratory Therapy: No Vent weaning trial: Not applicable Laboratory: LABS: Recent Labs 09/05/18 0311 09/06/18 0350 NA 136* 139 K 4.1 3.7 CL 101 103 CO2 24 29 GAP 11 7 BUN 38* 32* CR 1.51* 1.49* GLU 144* 145* CA 9.5 9.2 ALBUMIN 3.4* 3.1* MG 1.9 1.6 PO4 2.9 2.9 Recent Labs 09/05/18 0311 09/06/18 0350 09/07/18 0335 WBC 10.1 8.4 -- HGB 12.3* 11.3* -- HCT 38.9* 34.7* -- PLTCT 173 184 -- INR 1.4* 1.4* 1.4* AST 11 9 -- ALT 5* 5* -- ALKPHOS 66 55 -- Estimated Creatinine Clearance: 58 mL/min (A) (based on SCr of 1.49 mg/dL (H)). Vitals: 09/01/18 1400 09/01/18 1658 09/06/18 1154 Weight: (S) 115.9 kg (255 lb 8.2 oz) 115.9 kg (255 lb 8.2 oz) 115.7 kg (255 lb) No results for input(s): PHART, PO2ART in the last 72 hours. Invalid input(s): PC02A Radiology and Other Diagnostic Procedures Review: Reviewed * Purnima Valente RN - 09/07/2018 3:34 PM CDT Discharge instructions complete with patient and patient's . Emphasized importance and instructions on follow up appointments, labs to be drawn and medication regimen. Ordered to hold on cellcept. Patient and verbalized understanding, no other questions at this time. Patient taken to lobby via wheelchair. * Purnima Valente RN - 09/07/2018 3:34 PM CDT I have reviewed the notes, assessment, and/or procedures performed by Jessy Forbes RN and concur with her/his documentation unless otherwise noted. * Jim Diop, PHARMD - 09/07/2018 2:09 PM CDT Pharmacy Warfarin Note Subjective: Pharmacy consulted to assist with management of warfarin therapy. Objective: Cuco Gilbert is a 73 y.o. male receiving warfarin for Afib. Current Warfarin Orders Medication Dose Route Frequency warfarin (COUMADIN) tablet 5 mg 5 mg Oral QHS warfarin, pharmacy to manage 1 each Service Per Pharmacy Bridge therapy: N/A. Patient's warfarin dose prior to admission: 2.5mg Tues/Fri, 5mg AOD INR Date/Time Value Ref Range Status 09/07/2018 0335 1.4 (H) 0.8 - 1.2 Final 09/06/2018 0350 1.4 (H) 0.8 - 1.2 Final 09/05/2018 0311 1.4 (H) 0.8 - 1.2 Final Drug interaction(s): recent azithromycin and Vit K, currently on Augmentin. Assessment: Patient's goal INR is 2-3 for Afib. INR: INR (no units) Date/Time Value 09/07/2018 0335 1.4 (H) Plan: 1. INR 1.4 after 3 doses of 4 mg. Will inc to 5 mg starting tonight. Upon discharge it seems appropriate to resume FIELD 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 regimen until outpt f/u early next week. 2. Next INR: Tomorrow 3. Pharmacy will continue to monitor, follow and adjust therapy as needed. If a patient requires an invasive procedure that necessitates warfarin being held, anticoagulation reversal, or if a provider other than Pharmacy discontinues/places an order for warfarin, the pharmacy to manage warfarin order will be discontinued per the policy and warfarin therapy will no longer be managed by Pharmacy Jim Diop PHARMD 09/07/2018 * Urszula Olsen APRN-THERAPY TECH - 09/07/2018 12:09 PM CDT Hepatology Progress Note Name: Cuco Gilbert Today's Date: 09/07/2018 Admission Date: 09/01/2018 LOS: 6 days Cuco Gilbert is a 73 yr old gentleman with history of EMERSON who received a liver transplant in 2010 with post transplant complication of ischemic biliopathy. PMH also includes atrial fibrillation on chronic anti-coagulation, CAD status post PCI/CABG, CHF with low ejection fraction, CKD, hypertension and hyperlipidemia who was transferred from [facility] for acute hypoxic respiratory failure with hemoptysis and septic shock. Found to have multi-focal pneumonia s/p treatment, now improving. Assessment/Plan: Transplanted Liver - OLT in 2010 with piggyback technique with duct to duct anastomosis - Liver biopsy 06/15/17: Essentially unremarkable liver parenchyma. Mild fibrous expansion of portal tracts with occasional septae (Stage1/4). - Hepatic enzymes within normal range. Total bilirubin:0.9, AST/ ALT:9/<3 with Alk.Ph:72 Immunosuppression - FIELD 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 Mycophenolate(Cellcept) stopped on admission due to sepsis. Do not restart at discharge - Tacrolimus trough of 3.6 in goal of 3-5 at true trough on 09/06 - FIELD 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 Tacrolimus 0.5mg twice daily continued. Cardiac - FIELD 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 Warfarin 4mg daily continued for stroke prevention with A Fib. - FIELD 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 BB increased to Metoprolol succinate 100 mg PO daily. FIELD 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 Lisinopril 5mg/ d continued. Improvement noted in tachycardia and blood pressure. - Diuretic regimen of FIELD 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 Spironolactone 25mg daily given and IV Lasix while in hospital for more aggressive diuresis now that shock has resolved. - Agree with initiation of Statin. Monthly CMP continued with standing labs. Renal - MAP: 70-105 today - CR: 1.24 at baseline with good measured UO as well as 2 unmeasurable occurences ID - Chest CT 09/01 concerning for multi-lobe pneumonia with Klebsiella pneumonia complex tracheal aspirate on 09/01. - Bronchial lavage with 1 colony of Klebsiella pneumoniae on 09/01 and light growth of Briseida glabrata - Antibiotic regimen switched to oral regimen of Augmentin, planning for discharge. Recommendation: - Continue Tacrolimus 0.5mg twice daily. Family reports that he will need a script at discharge. - FIELD 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 Mycophenolate(Cellcept) stopped on admission due to sepsis. Do not restart at discharge with no known history of rejection of transplant and adequate monotherapy with Tacrolimus 7 yrs post transplant. - Agree with initiation of Atorvastatin. Monthly CMP continued with standing labs. Follow Up Care: - Continue standing monthly labs with CBC, CMP and Tacrolimus after discharged Thank you for consulting the hepatology team. Subjective Cuco Gilbert is a 73 y.o. male. He reports feeling well today without difficulty breathing. Tolerating walking with standby assistance. Adequate oral nutrition per patient without nausea or emesis. Denies chest pain, palpitations , blood in stools, black stools. Sitting up comfortably. Medications Scheduled Meds: amoxicillin/K clavulanate (AUGMENTIN) tablet 875 mg 875 mg Oral BID w/meals insulin aspart U-100 (NOVOLOG FLEXPEN) injection PEN 0-14 Units 0-14 Units Subcutaneous 5 X Day insulin glargine (LANTUS SOLOSTAR, BASAGLAR) injection PEN 20 Units 20 Units Subcutaneous QHS(22) lidocaine (LIDODERM) 5 % topical patch 1 patch 1 patch Topical QDAY lisinopril (PRINIVIL; ZESTRIL) tablet 5 mg 5 mg Oral QDAY melatonin tablet 5 mg 5 mg Oral QHS metoprolol XL (TOPROL XL) tablet 100 mg 100 mg Oral QDAY pantoprazole (PROTONIX) injection 40 mg 40 mg Intravenous QDAY pregabalin (LYRICA) capsule 150 mg 150 mg Oral BID senna (SENOKOT) oral syrup 8.8 mg 8.8 mg Oral BID spironolactone (ALDACTONE) tablet 25 mg 25 mg Oral QDAY tacrolimus (PROGRAF) capsule 0.5 mg 0.5 mg Oral BID warfarin (COUMADIN) tablet 4 mg 4 mg Oral QHS Continuous Infusions: PRN and Respiratory Meds:acetaminophen Q6H PRN, amitriptyline/gabapentin/emu oil (#) Q8H PRN, loperamide PRN, magnesium sulfate PRN AND Magnesium PRN AND* * Notify Physician Ongoing, oxyCODONE Q6H PRN, potassium chloride SR PRN OR potassium chloride PRN, simethicone Q6H PRN, traZODone QHS PRN, warfarin, pharmacy to manage Per Pharmacy Objective: Vital Signs: Last Filed Vital Signs: 24 Hour Range BP: 137/89 (10/25 0800) Temp: 36.9 C (98.5 F) (09/07 08) Pulse: 105 (09/07 1100) Respirations: 18 PER MINUTE (09/07 1100) SpO2: 93 % (09/07 1100) O2 Delivery: None (Room Air) (09/07 1100) SpO2 Pulse: 95 (09/07 1100) BP: (100-147)/(49-98) Temp: [36.8 C (98.2 F)-37.4 C (99.4 F)] Pulse: [96-131] Respirations: [16 PER MINUTE-25 PER MINUTE] SpO2: [90 %-96 %] O2 Delivery: None (Room Air) Intensity Pain Scale (Self Report): Asleep (09/07/18 0400) Vitals: 09/01/18 1400 09/01/18 1658 09/06/18 1154 Weight: (S) 115.9 kg (255 lb 8.2 oz) 115.9 kg (255 lb 8.2 oz) 115.7 kg (255 lb) Intake/Output Summary: (Last 24 hours) Intake/Output Summary (Last 24 hours) at 09/07/18 1209 Last data filed at 09/07/18 1200 Gross per 24 hour Intake 720 ml Output 1950 ml Net -1230 ml Stool Occurrence: 1 Physical Exam General: Sitting up at edge of bed. Interactive. He appears stated age in no distress. Neurologic: Alert, Oriented to person, place, time and situation. Able to move all extremities spontaneously with 4+ strength today HEENT: Normocephalic, without obvious abnormality, atraumatic. Anicteric. Neck supple, symmetrical, trachea midline. Lungs:Non-labored on room air. Heart: S1, S2. 2+ pulses in extremities. Abdomen: Soft, non-distended, non-tender. Bowel sounds +. Extremities: Extremities normal, atraumatic, no cyanosis. No edema in extremities Skin: Skin color normal. Texture & turgor normal. Lab Review Pertinent labs reviewed Point of Care Testing (Last 24 hours) Glucose: (!) 163 (09/07/18 0848) POC Glucose (Download): (!) 148 (09/07/18 0816) Radiology and other Diagnostics Review: Pertinent radiology reviewed. JAIME Hernandez Pager [phone] * Jessy Forbes RN - 09/07/2018 9:21 AM CDT 0730 Report received. Assumed care of patient. Bedside safety check completed with shift commander RN. 0800 Assessment completed; see ICU flowsheet. Pt alert and oriented X4, VSS. Pt in a. Fib. Heart rate ranging from 100 to 130s. No complaints of pain at this time. No concerns at this time. Will continue to monitor. 1130 RUE PICC removed. Will continue to monitor. * Lisa Austin, PT - 09/06/2018 1:45 PM CDT PHYSICAL THERAPY PROGRESS NOTE MOBILITY: Mobility Progressive Mobility Level: Walk in hallway Distance Walked (feet): 230 ft Level of Assistance: Stand by assistance Assistive Device: Walker Time Tolerated: 11-30 minutes Activity Limited By: Fatigue SUBJECTIVE: Subjective Significant hospital events: history of ESLD 2/2 [place] s/p OLT in 2010 who is on MMF and tacro, afib, CKD, CAD, CHF with EF of 30% who is transferred from an OSh with acute hypoxemic respiratory failure, fevers, and shock. Patient self extubated 09/02. Mental / Cognitive Status: Alert;Oriented;Cooperative Persons Present: Spouse;Family Pain: Patient has no complaint of pain Pain Interventions: Patient agrees to participate in therapy Comments: Patient on RA. Ambulation Assist: Independent Mobility in Community without Device Patient Owned Equipment: None Home Situation: Lives with Family Type of Home: House Entry Stairs: No Stairs In-Home Stairs: No Stairs BED MOBILITY/TRANSFERS: Bed Mobility/Transfers Transfer Type: Sit to/from Stand Transfer: Assistance Level: From;Commode;Standby Assist Transfer: Assistive Device: Roller Walker Transfers: Type Of Assistance: Verbal Cues;For Safety Considerations Other Transfer Type: Stand to Sit Other Transfer: Assistance Level: To;Bed Side Chair;Standby Assist Other Transfer: Assistive Device: Roller Walker Other Transfer: Type Of Assistance: Verbal Cues;For Safety Considerations End Of Activity Status: Up in Chair;Nursing Notified;Instructed Patient to Request Assist with Mobility GAIT: Gait Gait Distance: 230 feet Gait: Assistance Level: Standby Assist Gait: Assistive Device: Roller Walker Gait: Descriptors: Pace: Normal;Normal step length;No balance loss Activity Limited By: Complaint of Fatigue ASSESSMENT/PROGRESS: Assessment/Progress Comments: Patient continues to improve with all aspects of mobility, less assistance needed for all tasks. AM-PAC 6 Clicks Basic Mobility Inpatient Turning from your back to your side while in a flat bed without using bed rails : None Moving from lying on your back to sitting on the side of a flatbed without using bedrails : None Moving to and from a bed to a chair (including a wheelchair): A Little Standing up from a chair using your arms (e.g. wheelchair, or bedside chair): A Little To walk in hospital room: A Little Climbing 3-5 steps with a railing: A Little Raw Score: 20 Standardized (T-scale) Score: 43.99 Basic Mobility CMS 0-100%: 33.32 CMS G Code Modifier for Basic Mobility: [facility] Basic Mobility Functional Stage: -11.95-33 Limited Movement GOALS: Goals Goal Formulation: With Patient Pt Will Go Supine To/From Sit: w/ Stand By Assist Pt Will Transfer Bed/Chair: w/ Stand By Assist Pt Will Transfer Sit to Stand: w/ Stand By Assist Pt Will Ambulate: 151-200 Feet, w/ Walker, w/ Stand By Assist PLAN: Plan Treatment Interventions: Mobility Training;Strengthening;Balance Activities Plan Frequency: 5 Days per Week PT Plan for Next Visit: Continue to increase ambulation. Likely see 1 more session then discharge. RECOMMENDATIONS: PT Discharge Recommendations PT Discharge Recommendations: Home with Assistance;Home Health Setting Equipment Recommendations: Patient owns necessary equipment Therapist: Lisa Austin PT, DPT Date: 09/06/2018 * Raul Gudino OT - 09/06/2018 1:33 PM CDT OCCUPATIONAL THERAPY PROGRESS NOTE Patient Name: Cuco Gilbert Room/Bed: [id number] Admitting Diagnosis: Sepsis Respiratory failure Past Medical History: Diagnosis Date A-fib ([facility]) Arrhythmia 2004 approx PVCs controlled by medication Atrial fibrillation ([facility]) 01/31/11 Biliary stent obstruction 03/15/11 Removal of stent with sphincterectomy of anastamosis site CAD (coronary artery disease) CABG x 5 [facility] [place] [place] Cholangitis 03/15/11 CKD (chronic kidney disease) 04/02/10 CMV (cytomegalovirus infection) (HCC) 01/31/11 DM (diabetes mellitus) (HCC) 04/01/10 Esophageal varices (HCC) 2010 With ligation H/O: GI bleed 04/02/10 History of liver transplant (HCC) HTN (hypertension) 1999 Hyperkalemia 04/01/10 Hyperlipidemia 04/01/10 EMERSON (nonalcoholic steatohepatitis) Pancytopenia 04/02/10 Sepsis(995.91) 01/31/11 URI (upper respiratory infection) 03/14/11 Mobility Subjective Pertinent Dx per Physician: PMH significant for ESLD s/p OLT, CAD, HTN, HLD, CHF , a fib, DM, CKD who presented to OSH on early 08/31 with c/o cough, hemoptysis. Was febrile upon arrival. With worsening respiratory failure through the course of the day/night, pt required intubation and was transferred to [facility] for further management on 09/01. Self extubated 09/02. Now on room air Precautions: Falls Pain / Complaints: Patient has no c/o pain Objective Psychosocial Status: Willing and Cooperative to Participate Persons Present: Spouse;Family Home Living Type of Home: House Home Layout: One Level;Stairs to Enter w/ Rails Bathroom Shower / Tub: Walk-in Shower Bathroom Toilet: Raised Bathroom Equipment: Grab Bars Around Toilet Prior Function Level Of Rooks: Independent with ADLs and functional transfers; Independent with homemaking w/ ambulation Lives With: Spouse Receives Help From: None Needed Vision Current Vision: Wears Glasses All of the Time Ocular Range Of Motion: Within Normal Limits ADL's Where Assessed: Chair LE Dressing Assist: Minimal Assist LE Dressing Deficits: Don/Doff L Shoe Functional Transfer Assist: Stand By Assist Functional Transfer Deficits: Commode Transfer Comment: Patient able to transfer form EOB to supine and retrune to EOB with SBA Activity Tolerance Endurance: 5/5 Endurance Does Not Limit Participation in Activity Sitting Balance: 4+/5 Moves/Returns Trunkal Midpoint 1-2 Inches in Multiple Planes Cognition Overall Cognitive Status: WFL to Adequately Complete Self Care Tasks Safely UE PROM Assessment Assessment: Decreased ADL Status;Decreased Self-Care Trans Prognosis: Good;w/ Family [facility] 6 Clicks Basic Mobility Inpatient Turning from your back to your side while in a flat bed without using bed rails : A Little Moving from lying on your back to sitting on the side of a flatbed without using bedrails : A Little Moving to and from a bed to a chair (including a wheelchair): A Little Standing up from a chair using your arms (e.g. wheelchair, or bedside chair): A Little To walk in hospital room: A Little Climbing 3-5 steps with a railing: A Lot Raw Score: 17 Standardized (T-scale) Score: 39.67 Basic Mobility CMS 0-100%: 43.83 CMS G Code Modifier for Basic Mobility: [facility] 6 Clicks Daily Activity Inpatient Putting on and taking off regular lower body clothes?: A Little Bathing (Including washing, rinsing, drying): A Little Toileting, which includes using toilet, bedpan, or urinal: A Little Putting on and taking off regular upper body clothing: A Little Taking care of personal grooming such as brushing teeth: A Little Eating meals?: None Daily Activity Raw Score: 19 Standardized (t-scale) score: 40.22 CMS 0-100% Score: 42.8 CMS G Code Modifier: [facility] Daily Activity Functional Stage: -2.73-40 No Independent Tasks Plan OT Frequency: 5x/week OT Plan for Next Visit: (LE dressing) Pt Will Transfer To Toilet: w/ Minimum Assist, w/ Assistive Device OT Discharge Recommendations OT Discharge Recommendations: Home with Home Health Equipment Recommendations: None Therapist: Raul Gudino OT/[place] [id number] Date: 09/06/2018 * Theodore Thompson RT - 09/06/2018 1:32 PM CDT RESPIRATORY THERAPY ADULT PROTOCOL EVALUATION RESPIRATORY PROTOCOL PLAN Medications Note: If indicated by protocol, medication orders will be placed by therapist. Procedures Oxygen/Humidity: O2 to keep SpO2 > 92% Monitoring: Pulse oximetry BID & PRN PATIENT EVALUATION RESULTS Chart Review * Pulmonary Hx: Smoker in home OR smoking cessation > 8 weeks * Surgical Hx: No surgery OR last surgery > 6 weeks ago OR trach/stoma (BA) * Chest X-Ray: Clear OR not available * PFT/Oxygenation: FEV1, PEFR 70-80% OR Pa02 70-80 RA OR Sp02 92-95% Patient Assessment * Respiratory Pattern: Regular pattern and rate OR good chest excursion with deep breathing * Breath Sounds: Clear and able to auscultate bases posteriorly * Cough / Sputum: Strong, effective cough OR nonproductive * Mental Status: Alert, oriented, cooperative * Activity Level: Ambulatory with assistance Priority Index Total Points: 3 Points * Priority Index: 1 PRIORITY INDEX GUIDELINES* Priority Points 1 0-9 points 2 9-18 points 3 > 18 points + Pulm Dx or Home Rx *Higher points indicate higher acuity. Therapist: Theodore Thompson RT Date: 09/06/2018 Slaughter AC=Airway clearance AM=Aerosolized medication BA=[place] aerosol DB&C=Deep breathe & cough FEV1=Forced expiratory volume in first second) IC=Inspiratory capacity LE=Lung expansion MDI=Metered dose inhaler Neb=Nebulizer O2=Oxygen Oxim=Oximetry PEFR=Peak expiratory flow rate SENIOR ASSOCIATE=Rapid Response Team * Urszula Olsen APRN-THERAPY TECH - 09/06/2018 12:45 PM CDT Hepatology Progress Note Name: Cuco Gilbert Today's Date: 09/06/2018 Admission Date: 09/01/2018 LOS: 5 days Cuco Gilbert is a 73 yr old gentleman with history of EMERSON who received a liver transplant in 2010 with post transplant complication of ischemic biliopathy. PMH also includes atrial fibrillation on chronic anti-coagulation, CAD status post PCI/CABG, CHF with low ejection fraction, CKD, hypertension and hyperlipidemia who was transferred from [facility] for acute hypoxic respiratory failure with hemoptysis and septic shock. Found to have multi-focal pneumonia s/p treatment, now improving. Assessment/Plan: Transplanted Liver - OLT in 2010 with piggyback technique with duct to duct anastomosis - Hepatic enzymes within normal range. Total bilirubin: 0.9, AST/ ALT: 9/5 with Alk.Ph: 55 Immunosuppression - Tacrolimus trough of 3.6 in goal of 3-5 today at 09 at true trough - FIELD 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 Tacrolimus 0.5mg twice daily continued. Renal - MAP: 80s - CR: 1.49 at baseline with good measured UO as well as 2 unmeasurable occurences ID - Multi-lobe pneumonia with Klebsiella pneumonia complex tracheal aspirate on . - Chest CT 09/01:Patchy consolidative and groundglass opacities throughout both lungs most compatible with multifocal pneumonia mixed with atelectasis. Small right and trace left pleural effusions - Blood cultures remain negative from 09/01 - Bronchial lavage with 1 colony of Klebsiella pneumoniae on 09/01 and light growth of Briseida glabrata - Urine culture negative from 09/01. Negative for Legionella and strep pneumonia antigen in urine as well. - Antibiotic regimen switched to oral regimen of Augmentin as he gets closer to discharge. Tolerating OT on room air without SOB today. Recommendation: - Please continue Tacrolimus at FIELD 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 dose of Tacro 0.5mg twice daily - Consider repeating Tacrolimus trough weekly while inpatient/in rehab on stable dose. Thank you for consulting the hepatology team. Subjective Cuco Gilbert is a 73 y.o. male. He reports no further shortness of breath today after getting up to chair. He is frustrated that his mobility has declined but reports understanding that his cannot care for him independently at this time and that it would be good for him to get stronger. He continues to work on strengthening and getting up with assistance. He did not want to walk with me when I offered but he plans to walk today. Tolerating oral intake without nausea or emesis. BMs this am. Denies chest pain, palpitations, blood in stools, black stools. Sitting up comfortably. Medications Scheduled Meds: amoxicillin/K clavulanate (AUGMENTIN) tablet 875 mg 875 mg Oral BID w/meals aspirin chewable tablet 81 mg 81 mg Oral QDAY furosemide (LASIX) tablet 80 mg 80 mg Oral QDAY insulin aspart U-100 (NOVOLOG FLEXPEN) injection PEN 0-14 Units 0-14 Units Subcutaneous 5 X Day insulin NPH (HUMULIN N KwikPen) injection PEN 10 Units 10 Units Subcutaneous BID (8-21) lidocaine (LIDODERM) 5 % topical patch 1 patch 1 patch Topical QDAY lisinopril (PRINIVIL; ZESTRIL) tablet 5 mg 5 mg Oral QDAY melatonin tablet 5 mg 5 mg Oral QHS metoprolol tartrate (LOPRESSOR) tablet 37.5 mg 37.5 mg Oral BID pantoprazole (PROTONIX) injection 40 mg 40 mg Intravenous QDAY pregabalin (LYRICA) capsule 75 mg 75 mg Oral BID senna (SENOKOT) oral syrup 8.8 mg 8.8 mg Oral BID tacrolimus (PROGRAF) capsule 0.5 mg 0.5 mg Oral BID warfarin (COUMADIN) tablet 4 mg 4 mg Oral QHS Continuous Infusions: PRN and Respiratory Meds:acetaminophen Q6H PRN, amitriptyline/gabapentin/emu oil (#) Q8H PRN, loperamide PRN, magnesium sulfate PRN AND Magnesium PRN AND* * Notify Physician Ongoing, oxyCODONE Q6H PRN, potassium chloride SR PRN OR potassium chloride PRN, simethicone Q6H PRN, traZODone QHS PRN, warfarin, pharmacy to manage Per Pharmacy Objective: Vital Signs: Last Filed Vital Signs: 24 Hour Range BP: 157/79 (09/06 800) Temp: 36.4 C (97.6 F) (09/06 08) Pulse: 121 (09/06 0900) Respirations: 21 PER MINUTE (09/06 900) SpO2: 95 % (09/06 900) O2 Delivery: None (Room Air) (09/06 0400) SpO2 Pulse: 92 (09/06 09) Height: 182.9 cm (72") (09/06 1154) BP: (126-160)/(77-83) Temp: [36.1 C (97 F)-37.2 C (99 F)] Pulse: [102-139] Respirations: [13 PER MINUTE-24 PER MINUTE] SpO2: [91 %-97 %] O2 Delivery: None (Room Air) Intensity Pain Scale (Self Report): 4 (09/06/18 0800) Vitals: 09/01/18 1400 09/01/18 1658 09/06/18 1154 Weight: (S) 115.9 kg (255 lb 8.2 oz) 115.9 kg (255 lb 8.2 oz) 115.7 kg (255 lb) Intake/Output Summary: (Last 24 hours) Intake/Output Summary (Last 24 hours) at 09/06/18 1245 Last data filed at 09/06/18 0900 Gross per 24 hour Intake 942 ml Output 1820 ml Net -878 ml Stool Occurrence: 1 Physical Exam General: Sitting up in recliner. Interactive. He appears stated age in no distress. Neurologic: Alert, Oriented to person, place, time and situation. Able to move all extremities spontaneously with 4+ strength today HEENT: Normocephalic, without obvious abnormality, atraumatic. Anicteric. Neck supple, symmetrical, trachea midline. Lungs: Course crackles to auscultation in lower lobes bilaterally. Non-labored on room air. Heart: S1, S2. 2+ pulses in extremities. Abdomen: Soft, non-distended, non-tender. Bowel sounds +. Extremities: Extremities normal, atraumatic, no cyanosis. No edema in extremities Skin: Skin color normal. Texture & turgor normal. Lab Review Pertinent labs reviewed Point of Care Testing (Last 24 hours) Glucose: (!) 145 (09/06/18 0350) POC Glucose (Download): (!) 188 (09/06/18 0915) Radiology and other Diagnostics Review: Pertinent radiology reviewed. JAIME Hernandez Pager [phone] * Raul Gudino OT - 09/06/2018 11:42 AM CDT OCCUPATIONAL THERAPY Patient unavailable due to ECHO being performed at bedside. Raul Gudino OT/[place] [id number] * Vladimir Mckinney MD - 09/06/2018 7:56 AM CDT Cuco Gilbert Today's Date: 09/06/2018 Admission Date: 09/01/2018 LOS: 5 days Assessment/Plan: Active Problems: CKD (chronic kidney disease) Atrial fibrillation (HCC) Status post liver transplant (HCC) DM (diabetes mellitus) (HCC) Pneumonia Septic shock (HCC) Acute respiratory failure with hypoxia and hypercapnia (HCC) Shock (HCC) Hemoptysis Acute on chronic systolic heart failure (HCC) Supratherapeutic INR Atrial fibrillation with rapid ventricular response (HCC) Delirium Hospital course: Cuco Membreno a 73 y.o.male, PMH significant for ESLD s/p OLT, CAD, HTN, HLD, CHF, a fib, DM, CKD who presented to OSH on early 08/31 with c/o cough, hemoptysis. Was febrile upon arrival. With worsening respiratory failure through the course of the day/night, pt required intubation and was transferred to [facility] for further management on 09/01. Patient required pressor for shock, off since 09/03 0200. Self-extubated on 09/02 am and oxygenating well on room air. CT chest consistent with multi-focal pneumonia. BAL performed 09/01; cultures + klebsiella. Abx narrowed to rocepin >augmentin today, continuing pulmonary hygiene. A.fib with RVR, with stable BP - started PO metoprolol and increased, and lisinopril 09/05 - however, with unclear FIELD 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 regimen, have requested records and cardiology consult, repeat echo today. Patient delirious but improved today. Stable for floor 09/04. Pt declining placement, PT/OT working with pt daily. NEURO Twitching/shaking movements (resolved) - On admission, pt experienced intermittent, somewhat rhythmic muscular twitches of UE, most significantly RUE, which family reports is not a chronic symptom - tacro level WNL as below - did experience syncope ~2 weeks prior to admit which was reportedly worked up by fitness club manager without cause determined per family - CT head without acute hemorrhage Plan - Monitor Delirium (improved) - Trazodone, melatonin QHS - Haldol if needed - Delirium precautions PULM Acute hypoxic Respiratory failure, PNA, Hemoptysis (hypoxia resolved) - Presented to OSH ED with c/o cough, hemoptysis which was sudden onset Thurs AM between [id number]. - OSH course: - initial ABG 7.27/55/79/25 on ?Comfort flow, 35%, 20L - Repeat ABG 09/01 7.2/66/113/25 - unclear fiO2 - Post intubation - 7.33/52/142/26 - BNP 299 - was reportedly febrile to 102 on arrival - Given abx as below - CXR with R>L consolidation - CT scan c/w bilat GGO/consolidation concerning for PNA, also with some e/o pulm edema/small effusion which is less significant - Bronch with BAL completed, see procedure note for findings - Self extubated 09/02; now on RA (though did require 2L briefly overnight with e/o EVERARDO, 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 but has not been wearing lately) Plan - ID as below - Pulm hygiene - f/u with pulm on d/c if pt wishes to address his EVERARDO further CV Shock (resolved), Hx HFrEF, CAD, HTN, A fib w/ RVR - Shock ddx likely septic vs cardiogenic, less likely hypovolemia - FIELD 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 meds unclear - VA list includes atorvastatin, lasix, metoprolol, aldactone , asa, lisinopril, warfarin though pt reports not taking metoprolol or lisinopril - Started on NE at OSH, able to wean off briefly upon arrival but required again - Off pressor since 0200 this morning - S/p stress dose steroids at OSH - Trop 0.12->0.09->0.12, BNP 377 - Per family, received multiple bags of IVF at OSH - Imaging as above - Echo with EF 20%, mild , moderately reduced RV fx - Previous echo in 02/2018 with EF 30%, no mention of RV dysfunction, mild aortic stenosis Plan - ID as below - Obtained cardiology records from pt's outpt cards- Dr. Li in [place] - echo beginning of aug with EF 50% - continue metoprolol, 37.5 BID; lisinopril - Consult cardiology, repeat limited echo - continue FIELD 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 lasix, hold aldactone for now GI Hx ESLD s/p OLT 2010 - FIELD 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 meds include tacro and cellcept which he has not taken since Wed PM - MELD-Na score: 14 at 09/06/2018 3:50 AM MELD score: 14 at 09/06/2018 3:50 AM Calculated from: Serum Creatinine: 1.49 MG/DL at 09/06/2018 3:50 AM Serum Sodium: 139 MMOL/L (Rounded to 137) at 09/06/2018 3:50 AM Total Bilirubin: 0.9 MG/DL (Rounded to 1) at 09/06/2018 3:50 AM INR(ratio): 1.4 at 09/06/2018 3:50 AM Age: 73 years Plan - Consult hepatology for recs with immunosuppression - recs continue tacro, hold cellcept - have asked to re-engage for recs r/t cellcept - daily tacro levels - goal 3-[address] Russell - Ensure RN draws level immediately prior to tacro dose FEN - Speech evaluated patient - advanced diet as tolerated RENAL CKD - Baseline cr around 2, 2.08 on admit, BUN 49 - 1.5 today Plan - Monitor I/O closely - Avoid nephrotoxins, hypotension as able 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 with breakfast/lunch, 14U with dinner plus sliding scale as well as Levemir 36U QAM, 18U Qevening Plan - Continue NPH and SSI for now with close monitoring; clarify captain waiter/waitress regimen today ID Septic shock, PNA - WBC on admit to OSH 5.5> peaked at 29; febrile to 102 on admit to OSH - Imaging as above - Procal 4.25 - Received cefepime, zosyn and vanc at OSH - UA with 1+ leuk at OSH - Strep penumo/legionella neg - RVP neg - Fungitell 105, aspergillus negative - BAL 09/01 - PJP, RVP, aspergillus, galactomannan Neg - sputum cx - klebsiella - angel susceptible - HSV, CMV neg - histoplasma, aspergillus - in process - afb, fungal cx with yeast/briseida Plan - complete 7 days with augmentin - 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, low threshold to add viral coverage if pt decompensates HEME Supratherapeutic INR - FIELD 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 warfarin - family reports compliance - OSH INR 3.6 > 8.2 - Received unknown amount of vit K PO at OSH - [facility] INR 8.2, TEG WNL though with hemoptysis - given ffp and vit K upon arrival - pts reports pt was started on indomethacin on Tuesday for gout by PCP - INR 1.4 today Plan - Daily INR, continue warfarin - pharmacy assisting with management MSK Hx Gout - Hold FIELD 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 meds for now PPX: Lines: piv Drains: na GI prophy: na DVT prophy: warfarin PT/OT: yes Insulin: yes Code Status: full Dispo: stable for floor Dianelys Alexander JC Pulmonary Critical Care Pager: [phone] M3 team pager [phone] ATTESTATION I personally interviewed and examined the patient. I have reviewed the history , physical, impression and plan outlined by the Nurse Practitioner. The patient presents with (HPI) pneumonia in the setting of immunosuppression from history of liver transplant with concomitant A. fib with RVR and delirium, On examination there is no distress, alert, oriented x3 today, abdomen soft, My impression is resolving pneumonia with atrial fibrillation with rapid ventricular response. Improving delirium. LV systolic dysfunction (chronic, but now with obtained outside records appears to have interval worsening from last evaluation), My plan is continue with conservative care for improving delirium. Frequent reorientation and environmental measures. Continue to titrate medications for heart failure. Continue with efforts for controlling rate of atrial fibrillation. We will have cardiology evaluate given that patient has had a change in LV systolic function from previous evaluations. Appropriate for transfer from the floor. Staff name: Vladimir Mckinney MD Date: 09/06/2018 Subjective: Cuco Kerr Vladimir is a 73 y.o. who is up to the chair. He does not want to discharge to a facility. ROS: Constitutional: negative for fevers Eyes: negative for visual disturbance Ears, nose, mouth, throat, and face: negative for nasal congestion and hoarseness Respiratory: negative for cough, soa Cardiovascular: negative for chest pain, palpitations Gastrointestinal: negative for nausea, vomiting Genitourinary:negative for dysuria Musculoskeletal:negative for myalgias Neurological: negative for headaches and dizziness Objective: Medications: Scheduled Meds: amoxicillin/K clavulanate (AUGMENTIN) tablet 875 mg 875 mg Oral BID w/meals aspirin chewable tablet 81 mg 81 mg Oral QDAY furosemide (LASIX) tablet 80 mg 80 mg Oral QDAY insulin aspart U-100 (NOVOLOG FLEXPEN) injection PEN 0-14 Units 0-14 Units Subcutaneous 5 X Day insulin NPH (HUMULIN N KwikPen) injection PEN 10 Units 10 Units Subcutaneous BID (8-21) lidocaine (LIDODERM) 5 % topical patch 1 patch 1 patch Topical QDAY lisinopril (PRINIVIL; ZESTRIL) tablet 5 mg 5 mg Oral QDAY magnesium sulfate 1 g/D5W 100 mL IVPB 1 g Intravenous Q1H X 3DO melatonin tablet 5 mg 5 mg Oral QHS metoprolol tartrate (LOPRESSOR) tablet 37.5 mg 37.5 mg Oral BID pantoprazole (PROTONIX) injection 40 mg 40 mg Intravenous QDAY pregabalin (LYRICA) capsule 75 mg 75 mg Oral BID senna (SENOKOT) oral syrup 8.8 mg 8.8 mg Oral BID tacrolimus (PROGRAF) capsule 0.5 mg 0.5 mg Oral BID warfarin (COUMADIN) tablet 4 mg 4 mg Oral QHS Continuous Infusions: PRN and Respiratory Meds:acetaminophen Q6H PRN, amitriptyline/gabapentin/emu oil (#) Q8H PRN, loperamide PRN, magnesium sulfate PRN AND Magnesium PRN AND* * Notify Physician Ongoing, oxyCODONE Q6H PRN, potassium chloride SR PRN OR potassium chloride PRN, simethicone Q6H PRN, traZODone QHS PRN, warfarin, pharmacy to manage Per Pharmacy Vital Signs: Last Filed Vital Signs: 24 Hour Range BP: 126/77 (09/06 400) Temp: 37.2 C (99 F) (09/06 400) Pulse: 121 (09/06 400) Respirations: 20 PER MINUTE (09/06 400) SpO2: 95 % (09/06 400) O2 Delivery: None (Room Air) (09/06 400) SpO2 Pulse: 124 (10/24 0400) BP: (123-160)/(77-90) Temp: [36.1 C (97 F)-37.2 C (99 F)] Pulse: [93-139] Respirations: [13 PER MINUTE-28 PER MINUTE] SpO2: [94 %-97 %] O2 Delivery: None (Room Air) Intensity Pain Scale (Self Report): 4 (09/06/18 0800) Vitals: 09/01/18 1326 09/01/18 1400 09/01/18 1658 Weight: 118.4 kg (261 lb 0.4 oz) (S) 115.9 kg (255 lb 8.2 oz) 115.9 kg (255 lb 8.2 oz) Intake/Output Summary: (Last 24 hours) Intake/Output Summary (Last 24 hours) at 09/06/18 0756 Last data filed at 09/06/18 0700 Gross per 24 hour Intake 720 ml Output 1720 ml Net -1000 ml Physical Exam: Physical Exam General appearance: alert, no distress Head: Normocephalic, without obvious abnormality Eyes: conjunctivae/corneas clear. PERRL Mouth/throat: Moist mucous membranes, Neck: supple, symmetrical, trachea midline Lungs: coarse to auscultation bilaterally Heart: irregular rate and rhythm Abdomen: soft, non-tender. Bowel sounds +. Extremities: extremities normal, atraumatic Neurologic: Non focal, intermittently forgetful Peripheral pulses: 2+ and symmetric Cap Refill: <3 sec Skin: Skin color, texture, turgor normal. No rashes or lesions LABS: Recent Labs 09/04/1811409/05/1831009/06/18 0350 NA 138 136* 139 K 4.2 4.1 3.7 CL 105 101 103 CO2 24 24 29 GAP 9 11 7 BUN 41* 38* 32* CR 1.64* 1.51* 1.49* GLU 110* 144* 145* CA 9.1 9.5 9.2 ALBUMIN 3.1* 3.4* 3.1* MG 2.0 1.9 1.6 PO4 1.9* 2.9 2.9 Recent Labs 09/04/18 0115 09/04/18 0328 09/05/18 0311 09/06/18 0350 WBC -- 8.3 10.1 8.4 HGB -- 11.5* 12.3* 11.3* HCT -- 36.5* 38.9* 34.7* PLTCT -- 156 173 184 INR -- 1.5* 1.4* 1.4* AST 9 -- 11 9 ALT <3* -- 5* 5* ALKPHOS 55 -- 66 55 Estimated Creatinine Clearance: 58 mL/min (A) (based on SCr of 1.49 mg/dL (H)). Vitals: 09/01/18 1326 09/01/18 1400 09/01/18 1658 Weight: 118.4 kg (261 lb 0.4 oz) (S) 115.9 kg (255 lb 8.2 oz) 115.9 kg (255 lb 8.2 oz) No results for input(s): PHART, PO2ART in the last 72 hours. Invalid input(s): PC02A Radiology and Other Diagnostic Procedures Review: Reviewed * Taye Carrillo RN - 09/05/2018 11:13 PM CDT ~1900- Assumed care of patient. Bedside safety check completed. Alarms verified. ~2100- Full systems assessment completed and documented per ICU flowsheets. Pt is A/O x4. VSS per pt trends. Will continue to monitor. * Urszula Olsen APRN-NP - 09/05/2018 3:17 PM CDT Hepatology Progress Note Name: Cuco Gilbert Today's Date: 09/05/2018 Admission Date: 09/01/2018 LOS: 4 days Cuco Gilbert is a 73 yr old gentleman with history of EMERSON who received a liver transplant in 2010 with post transplant complication of ischemic biliopathy atrial fibrillation on chronic anti-coagulation, CAD status post PCI/ CABG, CHF with ejection fraction of 30%, CKD with baseline of 2, hypertension, and hyperlipidemia who was transferred from [facility] for acute hypoxic respiratory failure with hemoptysis and septic shock. Found to have multi-focal pneumonia s/p treatment, now improving. Assessment/Plan: Transplanted Liver - OLT in 2010 with piggyback technique with duct to duct anastomosis - Hepatic enzymes within normal range other than improving bilirubin with resolving infection. Total bilirubin: 1.1, AST/ ALT: 11/5 with Alk.Ph: 66 Immunosuppression - Tacrolimus trough of 6.0 above goal of 3-5 today at 0311 with dose given at 2030. - FIELD 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 Tacrolimus 0.5mg twice daily continued. Will ask for true trough at 0800 on 09/06 to evaluate need for adjustment to dosage. Renal - I/O net -2.2L in 24hrs with good UO on 09/04 - MAP: 85 - CR: 1.51 at/below baseline ID - Multi-lobe pneumonia with Klebsiella pneumonia complex tracheal aspirate on . Ceftriaxone continued, now improved to room air. - Chest CT 09/01:Patchy consolidative and groundglass opacities throughout both lungs most compatible with multifocal pneumonia mixed with atelectasis. Small right and trace left pleural effusions - Blood cultures remain negative from 09/01 - Bronchial lavage with 1 colony of Klebsiella pneumoniae on 09/01 and light growth of Briseida glabrata - Urine culture negative from 09/01. Negative for Legionella and strep pneumonia antigen in urine as well. - SIRS: 11/17 with tachycardia (with beta-henry increased toward FIELD 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 dose). Recommendation: - Please draw Tacrolimus trough level at 0800 on 09/06 to evaluate need for decreasing immunosuppression in patient recovering from recent sepsis. MMF stopped on admission so we plan to continue current Tacro dose unless trough level not falling closer to goal range. Case discussed with today. Subjective Cuco Gilbert is a 73 y.o. male. Reports no further shortness of breath at this time while resting in bed. He reports generalized weakness this morning although he is working on strengthening and getting out of bed with assistance. He also reports difficulty with incontinence of stool with getting out of bed being a slow, challenging process. BM this morning. He denies other concern. Reports adequate appetite today. Denies chest pain, palpitations, nausea, emesis , blood in stools, black stools. Able to get out of bed with assistance. Medications Scheduled Meds: amoxicillin/K clavulanate (AUGMENTIN) tablet 875 mg 875 mg Oral BID w/meals aspirin chewable tablet 81 mg 81 mg Oral QDAY furosemide (LASIX) tablet 80 mg 80 mg Oral QDAY insulin aspart U-100 (NOVOLOG FLEXPEN) injection PEN 0-14 Units 0-14 Units Subcutaneous 5 X Day insulin NPH (HUMULIN N KwikPen) injection PEN 10 Units 10 Units Subcutaneous BID (8-21) lidocaine (LIDODERM) 5 % topical patch 1 patch 1 patch Topical QDAY lisinopril (PRINIVIL; ZESTRIL) tablet 5 mg 5 mg Oral QDAY melatonin tablet 5 mg 5 mg Oral QHS metoprolol tartrate (LOPRESSOR) tablet 37.5 mg 37.5 mg Oral BID pantoprazole (PROTONIX) injection 40 mg 40 mg Intravenous QDAY pregabalin (LYRICA) capsule 75 mg 75 mg Oral BID senna (SENOKOT) oral syrup 8.8 mg 8.8 mg Oral BID tacrolimus (PROGRAF) capsule 0.5 mg 0.5 mg Oral BID warfarin (COUMADIN) tablet 4 mg 4 mg Oral QHS Continuous Infusions: PRN and Respiratory Meds:acetaminophen Q6H PRN, amitriptyline/gabapentin/emu oil (#) Q8H PRN, oxyCODONE Q6H PRN, simethicone Q6H PRN, traZODone QHS PRN, warfarin , pharmacy to manage Per Pharmacy Objective: Vital Signs: Last Filed Vital Signs: 24 Hour Range BP: 123/82 (09/05 1200) Temp: 36.1 C (97 F) (09/05 1200) Pulse: 102 (09/05 1300) Respirations: 23 PER MINUTE (09/05 1300) SpO2: 96 % (09/05 1300) O2 Delivery: None (Room Air) (09/05 1300) SpO2 Pulse: 106 (09/05 1300) BP: (123-156)/(72-118) Temp: [36.1 C (97 F)-37 C (98.6 F)] Pulse: [93-130] Respirations: [9 PER MINUTE-28 PER MINUTE] SpO2: [93 %-100 %] O2 Delivery: None (Room Air) Intensity Pain Scale (Self Report): 8 (09/05/18 0300) Vitals: 09/01/18 1326 09/01/18 1400 09/01/18 1658 Weight: 118.4 kg (261 lb 0.4 oz) (S) 115.9 kg (255 lb 8.2 oz) 115.9 kg (255 lb 8.2 oz) Intake/Output Summary: (Last 24 hours) Intake/Output Summary (Last 24 hours) at 09/05/18 1517 Last data filed at 09/05/18 1100 Gross per 24 hour Intake 0 ml Output 1875 ml Net -1875 ml Stool Occurrence: 1 Physical Exam General: Resting in bed. Interactive. Cooperative. He appears stated age in no distress. Neurologic: Alert, Oriented to person, place, time and situation. Able to move all extremities spontaneously. HEENT: Normocephalic, without obvious abnormality, atraumatic. Anicteric. Neck supple, symmetrical, trachea midline. Lungs: Crackles to auscultation bilaterally. Non-labored on room air this afternoon. Heart: Tachycardic, irregular rate. S1, S2. 2+ pulses in all extremities. Abdomen: Soft, non-distended, non-tender. Bowel sounds + Extremities: Extremities normal, atraumatic, no cyanosis. Skin: Skin color normal. Texture & turgor normal. Lab Review Pertinent labs reviewed Point of Care Testing (Last 24 hours) Glucose: (!) 144 (09/05/18 0311) POC Glucose (Download): (!) 160 (09/05/18 1153) Radiology and other Diagnostics Review: Pertinent radiology reviewed. JAIME Hernandez Pager [phone] * Lanny Nunez MA,CCC-FILM PAINTER - 09/05/2018 2:52 PM CDT SPEECH-LANGUAGE PATHOLOGY VIDEOSWALLOW ASSESSMENT EVALUATION SUMMARY Videoswallow Summary*: Videoswallow evaluation completed given overall concern for pneumonia source. Overall, pt presents with normal oropharyngeal swallow function. No instances of penetration/aspiration visualized with any consistencies administered. Multiple swallows did appear to clear trace-mild oropharyngeal pharyngeal residue from vallecular space and oral cavity. Reported clinical findings and recommendations to primary staff. See below for further details. Swallow Recommendations 1. Initiation of regular solids and thin liquids with implementation of swallow strategies: -Small Bites/Sips, Slow Rate of Intake, Multiple Swallows 2. Medications as tolerated. 3. Excellent oral care to reduce risk of aspirated bacteria from oral cavity (2- 3x/day). 4. Pt determined to be at baseline; No further speech therapy warranted at this time. MBSImp Scale: Lip closure for intraoral bolus containment resulted in no labial escape. Tongue control during bolus hold allowed bolus escape to the lateral buccal cavity/floor of mouth. Bolus preparation and mastication resulted in slow, prolonged chewing/mashing but with complete re-collection. Bolus transport/ lingual motion was with brisk tongue motion. Oral residue was a collection on oral structures. Initiation of the pharyngeal swallow occured when the bolus head was in the valleculae. Soft palate elevation resulted in no bolus between the soft palate and the pharyngeal wall. Laryngeal elevation demonstrated complete superior movement of the thyroid cartilage with complete approximation of the arytenoids to the epiglottic petiole. Anterior hyoid excursion demonstrated partial anterior movement. Epiglottic movement resulted in complete inversion. Laryngeal vestibular closure was complete, as indicated by no air or contrast within the laryngeal vestibule at the height of the swallow. Pharyngeal stripping wave was present, but diminished. Pharyngeal contraction could not be assessed due to logistical reasons not related to physiologic impairment. Pharyngoesophageal segment opening was completely distended for complete duration with no obstruction of bolus flow. Tongue base retraction allowed a narrow column of contrast of air between the retracted tongue base and the posterior pharyngeal wall. Pharyngeal residue was a collection of residue within or on pharyngeal structures. Esophageal clearance in the upright position could not be assessed due to logistical reasons not related to physiologic impairment. -No instances of penetration/aspiration visualized with any consistencies administered. -Multiple swallows appeared to clear trace-mild oropharyngeal pharyngeal residue. Swallow Recommendations* PO: Regular, Thin Liquids Swallow Strategies: Small Bites/Sips, Slow Rate of Intake, Multiple Swallows Plan*: Patient Functioning at Baseline. No Further Speech Therapy Indicated at this Time. Prognosis*: Good NOMS Dysphagia Rating*: 7-Normal -Ability to eat indep not limited by swallow function. Swallow safe/efficient for all consistencies. Compensatory strategies effectively used when needed. 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 Self extubated 09/02. Concern for pneumonia and underlying source. Hearing: WFL Lives With: Spouse Receives Help From: None Needed Psychosocial Status: Willing and Cooperative to Participate Persons Present: None CT Chest 09/01/18 IMPRESSION 1. Patchy consolidative and groundglass opacities throughout both lungs most compatible with multifocal pneumonia mixed with atelectasis. Small right and trace left pleural effusions, likely parapneumonic rather than sequela of CHF or fluid overload. 2. Prior median sternotomy and CABG with mild cardiomegaly, dense beaver coronary artery calcification, and aortic valve calcification. 3. Mildly prominent mediastinal lymph nodes which are likely reactive. 4. Persistent upper abdominal ascites. 5. Mild diffuse hepatic steatosis. CT Head 09/01/18 IMPRESSION 1. No acute intracranial hemorrhage or mass effect. 2. Mild generalized cerebral volume loss and mild to moderate nonspecific white matter disease, likely related to chronic microvascular ischemia. -Pt seen by this department 09/03/18, revealing minimal oropharyngeal dysphagia. No concerns for aspiration at bedside and department signed off with recommendations for full liquid and advance as tolerated. Subjective* Pain: Patient has no complaint of pain Pain Level Current*: No pain Trach Presence: No Feeding Tube Present During Eval: None Nutrition* Nutrition Prior To Hospitalization: Regular, Thin Liquids Current Form Of Nutrition: Full Liquid, Thin Liquids Views / Seating* Views / Seating: Lateral View Barium Consist/Presentation* Presentations: Therapist Fed Thin Liquid: 1 Tsp, Cup, Straw, Consecutive Swallows Other Consistencies: Pudding, Regular Solids Swallow Strategies Small Bites and Sips: Effective Slow Rate of Intake: Effective Multiple Swallows: Effective Education* Persons Educated: Patient Barriers To Learning: Cognitive Deficits Interventions: Staff Educated, Repetition of Instructions Teaching Methods: Verbal Topics: Dysphagia Patient Response: Verbalized Understanding G-Codes: Swallowing G 8996 Current Status: 0% Impairment G 8997 Goal Status: 0% Impairment G 8998 Discharge Status: 0% Impairment Based on above evaluation and clinical judgment. 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 Patient self extubated 09/02. Mental / Cognitive Status: Alert;Oriented;Cooperative Persons Present: Spouse Pain: Patient has no complaint of pain Pain Location: Bilateral;Foot (neuropathy) Pain Interventions: Patient agrees to participate in therapy;Treatment altered to patient's pain tolerance Comments: Patient on RA. Ambulation Assist: Independent Mobility in Community without Device Patient Owned Equipment: None Home Situation: Lives with Family Type of Home: House Entry Stairs: No Stairs In-Home Stairs: No Stairs BED MOBILITY/TRANSFERS: Bed Mobility/Transfers Comments: Patient just returned from video swallow when therapist entered. Transfer Type: Sit to/from Stand Transfer: Assistance Level: From;Bed Side Chair;Minimal Assist (video swallow chair) Transfer: Assistive Device: Roller Walker Transfers: Type Of Assistance: Verbal Cues;For Safety Considerations;For Strength Deficit Other Transfer Type: Stand to Sit Other Transfer: Assistance Level: To;Bed Side Chair;Minimal Assist Other Transfer: Assistive Device: Roller Walker Other Transfer: Type Of Assistance: Verbal Cues;For Safety Considerations;For Balance;For Strength Deficit End Of Activity Status: Up in Chair;Nursing Notified;Instructed Patient to Request Assist with Mobility;Instructed Patient to Use Call Light BALANCE: Balance Sitting Balance: Standby Assist Standing Balance: Static Standing Balance;2 UE support;Standby Assist;Dynamic Standing Balance;Minimal Assist GAIT: Gait Gait Distance: 75 feet Gait: Assistance Level: Minimal Assist Gait: Assistive Device: Roller Walker Gait: Descriptors: Pace: Slow;Normal step length;No balance loss Comments: Patient continues to demonstrate improved pace. Activity Limited By: Complaint of Fatigue EDUCATION: Education Persons Educated: Patient/Family Patient Barriers To Learning: None Noted Interventions: Repetition of Instructions Teaching Methods: Verbal Instruction Patient Response: Verbalized Understanding;More Instruction Required Topics: Plan/Goals of PT Interventions;Mobility Progression;Use of Assistive Device/Orthosis;Safety Awareness;Up with Assist Only;Importance of Increasing Activity ASSESSMENT/PROGRESS: Assessment/Progress Impaired Mobility Due To: Pain;Decreased Activity Tolerance;Deconditioning Assessment/Progress: Should Improve w/ Continued PT Comments: Patient continues to make gains with mobility. Will continue to benefit from therapy during this stay and likely post-acute. AM-PAC 6 Clicks Basic Mobility Inpatient Turning from your back to your side while in a flat bed without using bed rails : A Little Moving from lying on your back to sitting on the side of a flatbed without using bedrails : A Little Moving to and from a bed to a chair (including a wheelchair): A Little Standing up from a chair using your arms (e.g. wheelchair, or bedside chair): A Little To walk in hospital room: A Little Climbing 3-5 steps with a railing: A Lot Raw Score: 17 Standardized (T-scale) Score: 39.67 Basic Mobility CMS 0-100%: 43.83 CMS G Code Modifier for Basic Mobility: CK GOALS: Goals Goal Formulation: With Patient Pt Will Go Supine To/From Sit: w/ Stand By Assist Pt Will Transfer Bed/Chair: w/ Stand By Assist Pt Will Transfer Sit to Stand: w/ Stand By Assist Pt Will Ambulate: 151-200 Feet, w/ Walker, w/ Stand By Assist PLAN: Plan Treatment Interventions: Mobility Training;Strengthening;Balance Activities Plan Frequency: 5 Days per Week PT Plan for Next Visit: Continue to increase ambulation. Focus on sit to stand. RECOMMENDATIONS: PT Discharge Recommendations PT Discharge Recommendations: Inpatient Setting;versus;Home with Assistance; Home Health Setting. Anticipate patient will progress well and be safe for home discharge. Currently limited by: increased assist needed for sit to stand transfers and endurance with ambulation . Will continue to assess and update recommendations. Equipment Recommendations: Patient owns necessary equipment Therapist: Lisa Austin PT, DPT Date: 09/05/2018 * Raul Gudino, OT - 09/05/2018 9:21 AM CDT OCCUPATIONAL THERAPY PROGRESS NOTE Patient Name: Cuco Gilbert Room/Bed: [place] [address] Admitting Diagnosis: Sepsis Respiratory failure Past Medical History: Diagnosis Date A-fib (HCC) Arrhythmia 2004 approx PVCs controlled by medication Atrial fibrillation (HCC) 01/31/11 Biliary stent obstruction 03/15/11 Removal of stent with sphincterectomy of anastamosis site CAD (coronary artery disease) CABG x 5 [facility] [place] [place] Cholangitis 03/15/11 CKD (chronic kidney disease) 04/02/10 CMV (cytomegalovirus infection) ([facility]) 01/31/11 DM (diabetes mellitus) ([facility]) 04/01/10 Esophageal varices (HCC) 2010 With ligation H/O: GI bleed 04/02/10 History of liver transplant ([facility]) HTN (hypertension) 1999 Hyperkalemia 04/01/10 Hyperlipidemia 04/01/10 EMERSON (nonalcoholic steatohepatitis) Pancytopenia 04/02/10 Sepsis(995.91) 01/31/11 URI (upper respiratory infection) 03/14/11 Mobility Progressive Mobility Level: Walk in room Distance Walked (feet): 25 ft Level of Assistance: Stand by assistance Assistive Device: Walker Time Tolerated: 11-30 minutes Activity Limited By: Fatigue Subjective Pertinent Dx per Physician: PMH significant for ESLD s/p OLT, CAD, HTN, HLD, CHF , a fib, DM, CKD who presented to OSH on early 08/31 with c/o cough, hemoptysis. Was febrile upon arrival. With worsening respiratory failure through the course of the day/night, pt required intubation and was transferred to [facility] for further management on 09/01. Self extubated 09/02. Now on room air Precautions: Falls Pain / Complaints: Patient has no c/o pain Objective Psychosocial Status: Willing and Cooperative to Participate Home Living Type of Home: House Home Layout: One Level;Stairs to Enter w/ Rails Bathroom Shower / Tub: Walk-in Shower Bathroom Toilet: Raised Bathroom Equipment: Grab Bars Around Toilet Prior Function Level Of Rooks: Independent with ADLs and functional transfers; Independent with homemaking w/ ambulation Lives With: Spouse Receives Help From: None Needed Vision Current Vision: Wears Glasses All of the Time Ocular Range Of Motion: Within Normal Limits ADL's Where Assessed: Standing at Sink;In Bathroom Eating Assist: Stand By Assist Eating Deficits: Setup Grooming Assist: Minimal Assist Grooming Deficits: Steadying;Wash/Dry Hands LE Dressing Assist: Moderate Assist LE Dressing Deficits: Don/Doff R Sock;Don/Doff L Sock Toileting Assist: Maximum Assist Toileting Deficits: Perineal Hygiene Functional Transfer Assist: Moderate Assist Functional Transfer Deficits: Toilet Transfer Activity Tolerance Endurance: 3/5 Tolerates 25-30 Minutes Exercise w/Multiple Rests Sitting Balance: 4+/5 Moves/Returns Trunkal Midpoint 1-2 Inches in Multiple Planes Cognition Overall Cognitive Status: WFL to Adequately Complete Self Care Tasks Safely Orientation: Alert & Oriented x4 UE PROM UE AROM Overall BUE AROM WNL: Yes Coordination: Mild Delay Grasp: Bilateral Grasp Functional for Activity Edema RUE Edema: No Significant Edema LUE Edema: No Significant Edema Sensory Overall Sensory: Pt Perceives Pressure in Both UEs in Gross Exam Splints/Slings UE Strength / Tone Overall Strength / Tone: WFL Able to Perform ADL Tasks R Carolyn: No Increase in Muscle Tone L Carolyn: No Increase in Muscle Tone Education Assessment Assessment: Decreased ADL Status;Decreased UE Strength;Decreased Endurance; Decreased Self-Care Trans;Decreased High-Level ADLs Prognosis: Good;w/Cont OT s/p Acute Discharge AM-PAC 6 Clicks Basic Mobility Inpatient Turning from your back to your side while in a flat bed without using bed rails : A Little Moving from lying on your back to sitting on the side of a flatbed without using bedrails : A Little Moving to and from a bed to a chair (including a wheelchair): A Little Standing up from a chair using your arms (e.g. wheelchair, or bedside chair): A Little To walk in hospital room: A Little Climbing 3-5 steps with a railing: A Lot Raw Score: 17 Standardized (T-scale) Score: 39.67 Basic Mobility CMS 0-100%: 43.83 CMS G Code Modifier for Basic Mobility: CK AM-PAC 6 Clicks Daily Activity Inpatient Putting on and taking off regular lower body clothes?: A Lot Bathing (Including washing, rinsing, drying): A Lot Toileting, which includes using toilet, bedpan, or urinal: A Lot Putting on and taking off regular upper body clothing: A Little Taking care of personal grooming such as brushing teeth: A Little Eating meals?: None Daily Activity Raw Score: 16 Standardized (t-scale) score: 35.96 CMS 0-100% Score: 53.32 CMS G Code Modifier: CK AM-PAC Daily Activity Functional Stage: -2.73-40 No Independent Tasks Plan OT Frequency: 5x/week OT Plan for Next Visit: (Increased independence with functional transfers,LE dressing) Pt Will Transfer To Toilet: w/ Minimum Assist, w/ Assistive Device OT Discharge Recommendations OT Discharge Recommendations: Inpatient Setting Equipment Recommendations: Too early to be determined Therapist: Raul Gudino OT/[place] [id number] Date: 09/05/2018 * Ashley Steiner RN - 09/05/2018 9:05 AM CDT 0700: Assumed care of patient and bedside safety check complete with shift commander RN. 0800: Assessment completed as charted per doc flowsheets. VSS per patient trends. Pt lethargic but oriented x4 and has no complaints of pain at this time. States he did not sleep well last night and wants to stay in bed to continue napping. 1340: Pt to GI/Endo for video swallow eval. * Vladimir Mckinney MD - 09/05/2018 7:20 AM CDT Cuco Gilbert Today's Date: 09/05/2018 Admission Date: 09/01/2018 LOS: 4 days Assessment/Plan: Active Problems: CKD (chronic kidney disease) Atrial fibrillation (HCC) Status post liver transplant (HCC) DM (diabetes mellitus) (HCC) Pneumonia Septic shock (HCC) Acute respiratory failure with hypoxia and hypercapnia (HCC) Shock (HCC) Hemoptysis Acute on chronic systolic heart failure (HCC) Supratherapeutic INR Atrial fibrillation with rapid ventricular response (HCC) Delirium Hospital course: Cuco Membreno a 73 y.o.male, PMH significant for ESLD s/p OLT, CAD, HTN, HLD, CHF, a fib, DM, CKD who presented to OSH on early 08/31 with c/o cough, hemoptysis. Was febrile upon arrival. With worsening respiratory failure through the course of the day/night, pt required intubation and was transferred to [facility] for further management on 09/01. Patient required pressor for shock, off since 09/03 0200. Self-extubated on 09/02 am and oxygenating well on room air. CT chest consistent with multi-focal pneumonia. BAL performed 09/01; cultures + klebsiella. Abx narrowed to rocepin >augmentin today, continuing pulmonary hygiene. A.fib with RVR, with stable BP - restarted PO metoprolol and increased, restart lisinopril today. Patient delirious but improved today. Stable for floor 09/04. Looking at placement options with anticipated d/c in the coming days. NEURO Twitching/shaking movements (resolved) - On admission, pt experienced intermittent, somewhat rhythmic muscular twitches of UE, most significantly RUE, which family reports is not a chronic symptom - tacro level WNL as below - did experience syncope ~2 weeks prior to admit which was reportedly worked up by fitness club manager without cause determined per family - CT head without acute hemorrhage Plan - Monitor Delirium (improved) - Trazodone, melatonin QHS - Haldol if needed - Delirium precautions PULM Acute hypoxic Respiratory failure, PNA, Hemoptysis (hypoxia resolved) - Presented to OSH ED with c/o cough, hemoptysis which was sudden onset Thurs AM between [id number]. - OSH course: - initial ABG 7.27/55/79/25 on ?Comfort flow, 35%, 20L - Repeat ABG 09/01 7.2/66/113/25 - unclear fiO2 - Post intubation - 7.33/52/142/26 - per notes, pt experienced significant worsening of his work of breathing and he was intubated at OSH, placed on MV 500, R 14, p5 - BNP 299 - was reportedly febrile to 102 on arrival - Given abx as below - CXR with R>L consolidation - CT scan c/w bilat GGO/consolidation concerning for PNA, also with some e/o pulm edema/small effusion which is less significant - Bronch with BAL completed, see procedure note for findings - Self extubated 09/02; now on RA (though did require 2L briefly overnight with e/o EVERARDO, 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 but has not been wearing lately) Plan - ID as below - Pulm hygiene - f/u with pulm on d/c if pt wishes to address his EVERARDO further CV Shock (resolved), Hx HFrEF, CAD, HTN, A fib w/ RVR - Shock ddx likely septic vs cardiogenic, less likely hypovolemia - FIELD 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 meds include atorvastatin, lasix, metoprolol, aldactone, asa, lisinopril, warfarin - Started on NE at OSH, able to wean off briefly upon arrival but required again - Off pressor since 0200 this morning - S/p stress dose steroids at OSH - Trop 0.12->0.09->0.12, BNP 377 - Per family, received multiple bags of IVF at OSH - Imaging as above - Echo with EF 20%, mild , moderately reduced RV fx - Previous echo in 02/2018 with EF 30%, no mention of RV dysfunction, mild aortic stenosis Plan - ID as below - continue metoprolol, increase to 37.5 BID (FIELD 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 50 xl QD) - restart lisinopril today - continue FIELD 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 lasix, hold aldactone for now GI Hx ESLD s/p OLT 2010 - FIELD 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 meds include tacro and cellcept which he has not taken since Wed PM - MELD-Na score: 15 at 09/05/2018 3:11 AM MELD score: 14 at 09/05/2018 3:11 AM Calculated from: Serum Creatinine: 1.51 MG/DL at 09/05/2018 3:11 AM Serum Sodium: 136 MMOL/L at 09/05/2018 3:11 AM Total Bilirubin: 1.1 MG/DL at 09/05/2018 3:11 AM INR(ratio): 1.4 at 09/05/2018 3:11 AM Age: 73 years Plan - Consult hepatology for recs with immunosuppression - recs continue tacro, hold cellcept - have asked to re-engage for recs r/t cellcept - daily tacro levels - goal 3-[address] Russell - Ensure RN draws level immediately prior to tacro dose tomorrow AM FEN - Speech evaluated patient - advanced diet as tolerated - Will ask FILM PAINTER if there is benefit to video swallow in the setting of klebsiella pna RENAL CKD - Baseline cr around 2, 2.08 on admit, BUN 49 - 1.5 today Plan - Monitor I/O closely - Avoid nephrotoxins, hypotension as able 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 with breakfast/lunch, 14U with dinner plus sliding scale as well as Levemir 36U QAM, 18U Qevening Plan - Continue NPH and SSI for now with close monitoring - BG 144 this AM ID Septic shock, PNA - WBC on admit to OSH 5.5> peaked at 29; febrile to 102 on admit to OSH - Imaging as above - Procal 4.25 - Received cefepime, zosyn and vanc at OSH - UA with 1+ leuk at OSH - Strep penumo/legionella neg - RVP neg - Fungitell 105, aspergillus negative - BAL 09/01 - PJP, RVP, aspergillus, galactomannan Neg - sputum cx - klebsiella - angel susceptible - HSV, CMV neg - histoplasma, aspergillus - in process - afb, fungal cx with yeast/briseida Plan - zosyn, azithromycin > narrowed to rocephin - will complete with augmentin - 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, low threshold to add viral coverage if pt decompensates - Fungitell elevated, histoplasmosis urine ag - pending HEME Supratherapeutic INR - FIELD 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 warfarin - family reports compliance - OSH INR 3.6 > 8.2 - Received unknown amount of vit K PO at OSH - [facility] INR 8.2, TEG WNL though with hemoptysis - given ffp and vit K upon arrival - pts reports pt was started on indomethacin on Tuesday for gout by PCP - INR 1.4 today Plan - Daily INR, continue warfarin at 4 for now - pharmacy assisting with management MSK Hx Gout - Hold FIELD 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 meds for now PPX: Lines: piv, picc>dc Drains: na GI prophy: na DVT prophy: warfarin PT/OT: yes Insulin: yes Code Status: full Dispo: stable for floor Dianelys Alexander APRN Pulmonary Critical Care Pager: [phone] M3 team pager [phone] ATTESTATION I personally interviewed and examined the patient. I have reviewed the history , physical, impression and plan outlined by the Nurse Practitioner. The patient presents with (HPI) pneumonia and septic shock in the setting of immunosuppression, now resolving, On examination there is no distress, alert, partial orientation, abdomen soft, regular rate and rhythm, easy work of breathing, My impression is resolved shock with improving pneumonia. Improving delirium. Continue management of multiple chronic medical issues including HFrEF and immunosuppression, My plan is continue to reinitiate home medications. Appropriate for transfer out of the ICU. Continue with frequent reorientation and conservative measures for delirium. Staff name: Vladimir Mckinney MD Date: 09/05/2018 Subjective: Cuco Kerr Vladimir is a 73 y.o. who is resting in bed. He was sleeping well this AM. ROS: Constitutional: negative for fevers Eyes: negative for visual disturbance Ears, nose, mouth, throat, and face: negative for nasal congestion and hoarseness Respiratory: negative for cough, + dyspnea which is positional Cardiovascular: negative for chest pain, palpitations Gastrointestinal: negative for nausea, vomiting Genitourinary:negative for dysuria Musculoskeletal:negative for myalgias Neurological: negative for headaches and dizziness Objective: Medications: Scheduled Meds: aspirin chewable tablet 81 mg 81 mg Oral QDAY cefTRIAXone (ROCEPHIN) IVP 1 g 1 g Intravenous Q24H* furosemide (LASIX) tablet 80 mg 80 mg Oral QDAY insulin aspart U-100 (NOVOLOG FLEXPEN) injection PEN 0-14 Units 0-14 Units Subcutaneous 5 X Day insulin NPH (HUMULIN N KwikPen) injection PEN 10 Units 10 Units Subcutaneous BID (8-21) lidocaine (LIDODERM) 5 % topical patch 1 patch 1 patch Topical QDAY melatonin tablet 5 mg 5 mg Oral QHS metoprolol tartrate (LOPRESSOR) tablet 37.5 mg 37.5 mg Oral BID pantoprazole (PROTONIX) injection 40 mg 40 mg Intravenous QDAY pregabalin (LYRICA) capsule 75 mg 75 mg Oral BID senna (SENOKOT) oral syrup 8.8 mg 8.8 mg Oral BID tacrolimus (PROGRAF) capsule 0.5 mg 0.5 mg Oral BID warfarin (COUMADIN) tablet 4 mg 4 mg Oral QHS Continuous Infusions: PRN and Respiratory Meds:acetaminophen Q6H PRN, amitriptyline/gabapentin/emu oil (#) Q8H PRN, oxyCODONE Q6H PRN, simethicone Q6H PRN, traZODone QHS PRN, warfarin , pharmacy to manage Per Pharmacy Vital Signs: Last Filed Vital Signs: 24 Hour Range BP: 156/72 (09/05 600) Temp: 37 C (98.6 F) (09/05 0400) Pulse: 105 (09/05 600) Respirations: 15 PER MINUTE (09/05 600) SpO2: 95 % (09/05 600) O2 Delivery: Nasal Cannula (09/05 620) SpO2 Pulse: 91 (09/05 600) BP: (127-156)/(70-118) Temp: [36.6 C (97.9 F)-37 C (98.6 F)] Pulse: [101-130] Respirations: [9 PER MINUTE-27 PER MINUTE] SpO2: [91 %-100 %] O2 Delivery: Nasal Cannula Intensity Pain Scale (Self Report): 8 (09/05/18 0300) Vitals: 09/01/18 1326 09/01/18 1400 09/01/18 1658 Weight: 118.4 kg (261 lb 0.4 oz) (S) 115.9 kg (255 lb 8.2 oz) 115.9 kg (255 lb 8.2 oz) Intake/Output Summary: (Last 24 hours) Intake/Output Summary (Last 24 hours) at 09/05/18 0720 Last data filed at 09/05/18 0600 Gross per 24 hour Intake 150 ml Output 1925 ml Net -1775 ml Physical Exam: Physical Exam General appearance: alert, no distress Head: Normocephalic, without obvious abnormality Eyes: conjunctivae/corneas clear. PERRL Mouth/throat: Moist mucous membranes, Neck: supple, symmetrical, trachea midline Lungs: coarse to auscultation bilaterally Heart: irregular rate and rhythm Abdomen: soft, non-tender. Bowel sounds +. Extremities: extremities normal, atraumatic Neurologic: Non focal, intermittently forgetful Peripheral pulses: 2+ and symmetric Cap Refill: <3 sec Skin: Skin color, texture, turgor normal. No rashes or lesions LABS: Recent Labs 09/03/18 0235 09/04/18 0115 09/05/18 0311 NA 137 138 136* K 4.3 4.2 4.1 CL 106 105 101 CO2 24 24 24 GAP 7 9 11 BUN 46* 41* 38* CR 1.81* 1.64* 1.51* GLU 81 110* 144* CA 8.8 9.1 9.5 ALBUMIN 2.7* 3.1* 3.4* MG 1.7 2.0 1.9 PO4 2.0 1.9* 2.9 Recent Labs 09/02/18 1900 09/03/18 0105 09/03/18 0235 09/03/18 0644 09/04/18 0115 09/04/18 0328 09/05/18 0311 WBC -- -- 7.8 -- -- 8.3 10.1 HGB -- -- 11.1* -- -- 11.5* 12.3* HCT -- -- 35.7* -- -- 36.5* 38.9* PLTCT -- -- 148* -- -- 156 173 INR -- -- 1.8* -- -- 1.5* 1.4* AST -- -- 6* -- 9 -- 11 ALT -- -- 3* -- <3* -- 5* ALKPHOS -- -- 45 -- 55 -- 66 TNI 0.15* 0.12* -- 0.10* -- -- -- Estimated Creatinine Clearance: 57.3 mL/min (A) (based on SCr of 1.51 mg/dL (H)) . Vitals: 09/01/18 1326 09/01/18 1400 09/01/18 1658 Weight: 118.4 kg (261 lb 0.4 oz) (S) 115.9 kg (255 lb 8.2 oz) 115.9 kg (255 lb 8.2 oz) No results for input(s): PHART, PO2ART in the last 72 hours. Invalid input(s): PC02A Radiology and Other Diagnostic Procedures Review: Reviewed * Madison España RN - 09/05/2018 6:30 AM CDT 1900 ~ Report received from bakari CHESTER. A/O x 4 at this time and following commands. Complains of pain but wants pain medication with trazadone and night time beds. Remains in chair at this time. Lines/alarms verified. Bedside safety check completed. 1999 ~ Head to toe assessment completed and documented per ICU spreadsheets. VSS per pt trends. 040 ~ Reassessment completed and documented at this time. Pt moved back to bed. 0625 ~ Pt desat down to 78% when asleep. Woke up slightly confused about where he was and the situation but re-orientated himself once fully awake. Placed on 2L NC at this time. Complained on pain consistently throughout the night. * Nabil Prater MD - 09/04/2018 5:17 PM CDT General Progress Note Name: Cuco Gilbert Today's Date: 09/04/2018 Admission Date: 09/01/2018 LOS: 3 days Assessment/Plan: Active Problems: CKD (chronic kidney disease) Atrial fibrillation (HCC) Status post liver transplant (HCC) DM (diabetes mellitus) (HCC) Pneumonia Septic shock (HCC) Acute respiratory failure with hypoxia and hypercapnia (HCC) Shock (HCC) Hemoptysis Acute on chronic systolic heart failure (HCC) Supratherapeutic INR Atrial fibrillation with rapid ventricular response (HCC) Delirium This is a 73-year-old male with past history significant for 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 -Hx of Ischemic bilioapathy with last ERCP in September 2012. On Ursodiol therapy. No reports of cholangitis since then. -On Ursodiol 300mg qd --Intrinsic Liver Function at baseline for patient. Additionally, no clinical evidence of jaundice, or encephalopathy. Trace ascites on US #Immunosuppressive medications: -Patient was on CellCept 500 mg twice daily and tacrolimus 1 mg twice daily, then recently was told to go down to 0.5 twice daily -Trough tacrolimus goal 35, preferably towards the lower side given his CKD. Tacrolimus 4.9--> 4.7--> 5.5 (but not actual trough level) #Septic shock: --Most likely 2/2 pneumonia per ICU team. -Intubated, on MV support, self extubated in -On broad-spectrum antibiotics with vancomycin, Zosyn and azithromycin -On admission was on pressors with norepinephrine. Off pressors since 09/03 Recommendations: -Continue FIELD 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 tacrolimus dose 0.5 mg twice daily. -Stop CellCept. -Please repeat tacrolimus trough level in a.m. our goal is 35. Please make sure it is trough. -Continue broad-spectrum robotics per ICU team. -Please call hepatology if any questions or concerns. Patient was seen and discussed with Dr.Haglund Nabil Prater MD Gastroenterology and hepatology fellow Pager: [phone] Nabil Prater MD Gastroenterology and hepatology fellow Pager: [phone] Subjective Cuco Gilbert is a 73 y.o. male. Patient self extubated himself on Tuesday. Currently off pressors since Tuesday morning. No acute events overnight. Continue to be on broad-spectrum antibiotics for pneumonia. No GI complaints Medications Scheduled Meds: aspirin chewable tablet 81 mg 81 mg Oral QDAY cefTRIAXone (ROCEPHIN) IVP 1 g 1 g Intravenous Q24H* furosemide (LASIX) tablet 80 mg 80 mg Oral QDAY insulin aspart U-100 (NOVOLOG FLEXPEN) injection PEN 0-14 Units 0-14 Units Subcutaneous 5 X Day insulin NPH (HUMULIN N KwikPen) injection PEN 10 Units 10 Units Subcutaneous BID (8-21) lidocaine (LIDODERM) 5 % topical patch 1 patch 1 patch Topical QDAY melatonin tablet 5 mg 5 mg Oral QHS metoprolol tartrate (LOPRESSOR) tablet 25 mg 25 mg Oral BID pantoprazole (PROTONIX) injection 40 mg 40 mg Intravenous QDAY pregabalin (LYRICA) capsule 75 mg 75 mg Oral BID senna (SENOKOT) oral syrup 8.8 mg 8.8 mg Oral BID tacrolimus (PROGRAF) capsule 0.5 mg 0.5 mg Oral BID warfarin (COUMADIN) tablet 4 mg 4 mg Oral QHS Continuous Infusions: PRN and Respiratory Meds:acetaminophen Q6H PRN, amitriptyline/gabapentin/emu oil (#) Q8H PRN, oxyCODONE Q6H PRN, simethicone Q6H PRN, traZODone QHS PRN, warfarin , pharmacy to manage Per Pharmacy Objective: Vital Signs: Last Filed Vital Signs: 24 Hour Range BP: 149/82 (09/04 1600) Temp: 36.6 C (97.9 F) (09/04 0800) Pulse: 111 (09/04 1700) Respirations: 16 PER MINUTE (09/04 1700) SpO2: 97 % (09/04 1700) O2 Delivery: None (Room Air) (09/04 1700) SpO2 Pulse: 100 (09/04 1700) BP: (107-157)/(67-101) Temp: [36.6 C (97.9 F)-37.4 C (99.4 F)] Pulse: [101-139] Respirations: [14 PER MINUTE-27 PER MINUTE] SpO2: [91 %-98 %] O2 Delivery: None (Room Air) Intensity Pain Scale (Self Report): 6 (09/04/18 1600) Vitals: 09/01/18 1326 09/01/18 1400 09/01/18 1658 Weight: 118.4 kg (261 lb 0.4 oz) (S) 115.9 kg (255 lb 8.2 oz) 115.9 kg (255 lb 8.2 oz) Intake/Output Summary: (Last 24 hours) Intake/Output Summary (Last 24 hours) at 09/04/18 1718 Last data filed at 09/04/18 1400 Gross per 24 hour Intake 150 ml Output 1350 ml Net -1200 ml Stool Occurrence: 1 Physical exam: General: Not in acute distress Lungs: Coarse lung sounds bilaterally Chest wall: No tenderness or deformity. Heart: Regular rate and rhythm Abdomen: soft, non distended,non tender, BS+. OLT scar Extremities: No edema Lab Review 24-hour labs: Results for orders placed or performed during the hospital encounter of (from the past 24 hour(s)) POC GLUCOSE Collection Time: 09/03/18 8:13 PM Result Value Ref Range Glucose, POC 167 (H) 70 - 100 MG/DL COMPREHENSIVE METABOLIC PANEL Collection Time: 09/04/18 1:15 AM Result Value Ref Range Sodium 138 137 - 147 MMOL/L Potassium 4.2 3.5 - 5.1 MMOL/L Chloride 105 98 - 110 MMOL/L Glucose 110 (H) 70 - 100 MG/DL Blood Urea Nitrogen 41 (H) 7 - 25 MG/DL Creatinine 1.64 (H) 0.4 - 1.24 MG/DL Calcium 9.1 8.5 - 10.6 MG/DL Total Protein 5.6 (L) 6.0 - 8.0 G/DL Total Bilirubin 1.4 (H) 0.3 - 1.2 MG/DL Albumin 3.1 (L) 3.5 - 5.0 G/DL Alk Phosphatase 55 25 - 110 U/L AST (SGOT) 9 7 - 40 U/L CO2 24 21 - 30 MMOL/L ALT (SGPT) <3 (L) 7 - 56 U/L Anion Gap 9 3 - 12 eGFR Non 41 (L) >60 mL/min eGFR 50 (L) >60 mL/min MAGNESIUM Collection Time: 09/04/18 1:15 AM Result Value Ref Range Magnesium 2.0 1.6 - 2.6 mg/dL PHOSPHORUS Collection Time: 09/04/18 1:15 AM Result Value Ref Range Phosphorus 1.9 (L) 2.0 - 4.5 MG/DL CBC AND DIFF Collection Time: 09/04/18 3:28 AM Result Value Ref Range White Blood Cells 8.3 4.5 - 11.0 K/UL RBC 4.69 4.4 - 5.5 M/UL Hemoglobin 11.5 (L) 13.5 - 16.5 GM/DL Hematocrit 36.5 (L) 40 - 50 % MCV 77.9 (L) 80 - 100 FL MCH 24.5 (L) 26 - 34 PG MCHC 31.5 (L) 32.0 - 36.0 G/DL RDW 18.5 (H) 11 - 15 % Platelet Count 156 150 - 400 K/UL MPV 7.8 7 - 11 FL Neutrophils 87 (H) 41 - 77 % Lymphocytes 7 (L) 24 - 44 % Monocytes 4 4 - 12 % Eosinophils 1 0 - 5 % Basophils 1 0 - 2 % Absolute Neutrophil Count 7.20 (H) 1.8 - 7.0 K/UL Absolute Lymph Count 0.60 (L) 1.0 - 4.8 K/UL Absolute Monocyte Count 0.30 0 - 0.80 K/UL Absolute Eosinophil Count 0.10 0 - 0.45 K/UL Absolute Basophil Count 0.10 0 - 0.20 K/UL PROTIME INR (PT) Collection Time: 09/04/18 3:28 AM Result Value Ref Range INR 1.5 (H) 0.8 - 1.2 TACROLIMUS LEVEL(FK506) Collection Time: 09/04/18 3:28 AM Result Value Ref Range Tacrolimus 5.5 2 - 15 NG/ML POC GLUCOSE Collection Time: 09/04/18 3:28 AM Result Value Ref Range Glucose, POC 93 70 - 100 MG/DL POC GLUCOSE Collection Time: 09/04/18 8:12 AM Result Value Ref Range Glucose, POC 89 70 - 100 MG/DL POC GLUCOSE Collection Time: 09/04/18 11:51 AM Result Value Ref Range Glucose, POC 90 70 - 100 MG/DL Point of Care Testing (Last 24 hours) Glucose: (!) 110 (09/04/18 1409) POC Glucose (Download): 90 (09/04/18 1151) Radiology and other Diagnostics Review: Pertinent radiology reviewed. Nabil Prater MD Pager Associated attestation - Nu Russell MD - 09/05/2018 8:41 AM CDT ATTESTATION I personally performed the slaughter portions of the E/M visit, discussed case with the Fellow and concur with documentation of history, physical exam, assessment, and treatment plan unless otherwise noted. Greatly improved. FK trough likely early this AM. Continue current dose FK, goal 3-5; off Myfortic. * Eva Ly PHARMD - 09/04/2018 3:30 PM CDT Pharmacy Warfarin Note Subjective: Pharmacy consulted to assist with management of warfarin therapy. Objective: Cuco Gilbert is a 73 y.o. male receiving warfarin for Afib. Current Warfarin Orders Medication Dose Route Frequency warfarin (COUMADIN) tablet 4 mg 4 mg Oral QHS warfarin, pharmacy to manage 1 each Service Per Pharmacy Bridge therapy: N/A. Patient's warfarin dose prior to admission: 2.5mg Tues/Fri, 5mg AOD INR Date/Time Value Ref Range Status 09/04/2018 0328 1.5 (H) 0.8 - 1.2 Final 09/03/2018 0235 1.8 (H) 0.8 - 1.2 Final 09/02/2018 0238 3.8 (H) 0.8 - 1.2 Final Drug interaction(s): recent azithromycin and Vit K, currently on ceftriaxone. Assessment: Patient's goal INR is 2-3 for Afib. INR: INR (no units) Date/Time Value 09/04/2018 0328 1.5 (H) Plan: 1. Initiate warfarin 4 mg. This is a slight reduction from FIELD 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 dose due to presentation at with elevated INR of 8. 2. Next INR: Tomorrow 3. Pharmacy will continue to monitor, follow and adjust therapy as needed. If a patient requires an invasive procedure that necessitates warfarin being held, anticoagulation reversal, or if a provider other than Pharmacy discontinues/places an order for warfarin, the pharmacy to manage warfarin order will be discontinued per the policy and warfarin therapy will no longer be managed by Pharmacy Eva Ly PHARMD 09/04/2018 * Williams Ann RD - 09/04/2018 2:35 PM CDT CLINICAL NUTRITION Clinical Nutrition Follow-Up Summary NAME:Cuco Gilbert :1945 AGE: 73 y.o. ADMISSION DATE: 09/01/2018 DAYS ADMITTED: LOS: 3 days Nutrition Assessment of Patient: Malnutrition Assessment: Does not meet criteria Current Oral Intake: Improving Estimated Calorie Needs: 0519-5277 (20-25 kcal/kg desired wt of 83.2 kg (for wt loss/obesity)) Estimated Protein Needs: 100-125 (1.2-1.5 g/kg desired wt) Oral Diet Order: Diabetic 4340-8828 Kcal/day (75 g Carb/meal, 30 g Carb/HS snack ) Current EN Order: EN discontinued 09/02 at extubation Comments: 73 yo M with PMH of ESLD 2/2 EEMRSON s/p OLT 2010, T2DM, CHF, A fib on AC, HTN, CAD s/p CABG, CKD admit on 09/01 from OSH with PNA, septic shock, respiratory failure, intubated and required pressor support. Self extubated on 09/02 and pressor weaned on 09/03. Pt received enteral feeding briefly while intubated, FILM PAINTER now approved pt for regular diet. Met with pt and a support person at bedside. He reports tolerating a medium size breakfast well this AM, reports prior to admit he was eating normally at home and holding a stable weight. He reports having gas today but no other GI complaints. RD encouraged healthy diet choices, eating more veggies, limiting high fat/added sugar/high sodium foods given obesity/HF/DM. Pt and family voiced understanding, he is not at acute nutritional risk at this time given that enteral feeding has stopped and he is on a oral diet without history of wt loss. Recommendation: Continue diabetic diet as ordered, if PO Intake remains good consider adding low sodium modifier as well to his diet given history of CHF. Consider checking HbA1c level. Goals: Initiate nutrition Time Frame: Within 48 Hours Status: Met Williams Ann, , RD, LD, [facility] *[id number] * Raul Gudino, OT - 09/04/2018 1:42 PM CDT OCCUPATIONAL THERAPY ASSESSMENT NOTE Patient Name: Cuco Gilbert Room/Bed: RI7443/01 Admitting Diagnosis: Sepsis Respiratory failure Past Medical History: Diagnosis Date A-fib (HCC) Arrhythmia 2004 approx PVCs controlled by medication Atrial fibrillation (HCC) 01/31/11 Biliary stent obstruction 03/15/11 Removal of stent with sphincterectomy of anastamosis site CAD (coronary artery disease) CABG x 5 [facility] [place] [place] Cholangitis 03/15/11 CKD (chronic kidney disease) 04/02/10 CMV (cytomegalovirus infection) (HCC) 01/31/11 DM (diabetes mellitus) (HCC) 04/01/10 Esophageal varices (HCC) 2010 With ligation H/O: GI bleed 04/02/10 History of liver transplant (HCC) HTN (hypertension) 1999 Hyperkalemia 04/01/10 Hyperlipidemia 04/01/10 EMERSON (nonalcoholic steatohepatitis) Pancytopenia 04/02/10 Sepsis(995.91) 01/31/11 URI (upper respiratory infection) 03/14/11 Mobility Progressive Mobility Level: Walk in room Distance Walked (feet): 30 ft Level of Assistance: Assist X1 Assistive Device: Walker Time Tolerated: 11-30 minutes Activity Limited By: Fatigue Subjective Pertinent Dx per Physician: PMH significant for ESLD s/p OLT, CAD, HTN, HLD, CHF , a fib, DM, CKD who presented to OSH on early 08/31 with c/o cough, hemoptysis. Was febrile upon arrival. With worsening respiratory failure through the course of the day/night, pt required intubation and was transferred to [facility] for further management on 09/01. Self extubated 09/02 Precautions: Falls Pain / Complaints: Patient has no c/o pain Objective Psychosocial Status: Participates in Therapy with Encouragement Persons Present: Spouse Home Living Type of Home: House Home Layout: One Level;Stairs to Enter w/ Rails Bathroom Shower / Tub: Walk-in Shower Bathroom Toilet: Raised Bathroom Equipment: Grab Bars Around Toilet Prior Function Level Of Rooks: Independent with ADLs and functional transfers; Independent with homemaking w/ ambulation Lives With: Spouse Receives Help From: None Needed Vision Current Vision: Wears Glasses All of the Time Ocular Range Of Motion: Within Normal Limits ADL's Where Assessed: Standing at Sink Grooming Assist: Minimal Assist Grooming Deficits: Steadying;Wash/Dry Hands;Wash/Dry Face LE Dressing Assist: Total Assist LE Dressing Deficits: Don/Doff R Sock;Don/Doff L Sock Comment: Patient required mod assist to stand from chair. Activity Tolerance Endurance: 3/5 Tolerates 25-30 Minutes Exercise w/Multiple Rests Sitting Balance: 4+/5 Moves/Returns Trunkal Midpoint 1-2 Inches in Multiple Planes Cognition Overall Cognitive Status: WFL to Adequately Complete Self Care Tasks Safely Orientation: Alert & Oriented x3 UE PROM UE AROM Overall BUE AROM WNL: Yes Coordination: Mild Delay Grasp: Bilateral Grasp Functional for Activity Edema RUE Edema: No Significant Edema LUE Edema: No Significant Edema Sensory Overall Sensory: Pt Perceives Pressure in Both UEs in Gross Exam Splints/Slings UE Strength / Tone Overall Strength / Tone: WFL Able to Perform ADL Tasks R Carolyn: No Increase in Muscle Tone L Carolyn: No Increase in Muscle Tone Education Persons Educated: Patient/Family Barriers To Learning: None Noted Teaching Methods: Verbal Instruction Patient Response: Verbalized Understanding Topics: Role of OT, Goals for Therapy Assessment Assessment: Decreased ADL Status;Decreased Self-Care Trans;Decreased High-Level ADLs;Decreased Endurance Prognosis: Good;w/Cont OT s/p Acute Discharge AM-PAC 6 Clicks Basic Mobility Inpatient Turning from your back to your side while in a flat bed without using bed rails : A Little Moving from lying on your back to sitting on the side of a flatbed without using bedrails : A Little Moving to and from a bed to a chair (including a wheelchair): A Little Standing up from a chair using your arms (e.g. wheelchair, or bedside chair): A Little To walk in hospital room: A Little Climbing 3-5 steps with a railing: A Lot Raw Score: 17 Standardized (T-scale) Score: 39.67 Basic Mobility CMS 0-100%: 43.83 CMS G Code Modifier for Basic Mobility: CK AM-PAC 6 Clicks Daily Activity Inpatient Putting on and taking off regular lower body clothes?: Total Bathing (Including washing, rinsing, drying): A Lot Toileting, which includes using toilet, bedpan, or urinal: A Lot Putting on and taking off regular upper body clothing: A Little Taking care of personal grooming such as brushing teeth: A Little Eating meals?: None Daily Activity Raw Score: 15 Standardized (t-scale) score: 34.69 CMS 0-100% Score: 56.46 CMS G Code Modifier: CK AM-PAC Daily Activity Functional Stage: -2.73-40 No Independent Tasks G-Codes: Self-care G8987 Current Status: 40-59% Impairment G8988 Goal Status: 20-39% Impairment Based on above evaluation and clinical judgment. Plan OT Frequency: 5x/week OT Plan for Next Visit: (Toilet transfers and grooming at sink) Further Evaluation Goals ADL Goals Patient Will Perform Grooming: Standing at Sink;w/ Stand By Assist Patient Will Perform LE Dressing: In Chair;w/ Minimum Assist Functional Transfer Goals Pt Will Transfer To Toilet: w/ Minimum Assist, w/ Assistive Device OT Discharge Recommendations OT Discharge Recommendations: Inpatient Setting Equipment Recommendations: Too early to be determined Therapist: Raul Gudino OT/[place] [id number] Date: 09/04/2018 * Ashley Steiner RN - 09/04/2018 10:59 AM CDT 0700: Assumed care of patient and bedside safety check complete with shift commander RN. 0800: Assessment completed as charted per doc flowsheets. VSS per patient trends. Pt in afib and rates vary from 110-160. Team is aware and FIELD 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 metoprolol increased. Pt alert and oriented but varies in answering the orientation questions; intermittent delirium is still a concern. 1100: Pt up with therapy and able to walk out of the room for a few steps; see therapy note for details. patient sitting up in chair and family now at bedside. 1300: Pt remains in AFIB but rate is better controlled in the 110s consistently. 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 Patient self extubated 09/02. Mental / Cognitive Status: Alert;Oriented;Cooperative Pain: Patient complains of pain Pain Location: Back Pain Interventions: Patient agrees to participate in therapy;Treatment altered to patient's pain tolerance Comments: Patient on RA. Ambulation Assist: Independent Mobility in Community without Device Patient Owned Equipment: None Home Situation: Lives with Family Type of Home: House Entry Stairs: No Stairs In-Home Stairs: No Stairs BED MOBILITY/TRANSFERS: Bed Mobility/Transfers Bed Mobility: Supine to Sit: Minimal Assist;Head of Bed Elevated;Verbal Cues; Use of Rail;Assist with Trunk Transfer Type: Sit to/from Stand Transfer: Assistance Level: From;Bed;Minimal Assist Transfer: Assistive Device: Roller Walker Transfers: Type Of Assistance: Verbal Cues;For Safety Considerations;For Strength Deficit;For Balance Other Transfer Type: Stand to Sit Other Transfer: Assistance Level: To;Bed Side Chair;Minimal Assist Other Transfer: Assistive Device: Roller Walker Other Transfer: Type Of Assistance: Verbal Cues;For Safety Considerations End Of Activity Status: Up in Chair;Nursing Notified;Instructed Patient to Request Assist with Mobility;Instructed Patient to Use Call Light Comments: Barbara sling placed under if patient has difficulty getting up from chair. BALANCE: Balance Sitting Balance: Standby Assist Standing Balance: Static Standing Balance;2 UE support;Standby Assist;Dynamic Standing Balance;Minimal Assist GAIT: Gait Gait Distance: 40 feet Gait: Assistance Level: Minimal Assist Gait: Assistive Device: Roller Walker Gait: Descriptors: Pace: Slow;Decreased step length;No balance loss Comments: Patient with improved pace this date. Activity Limited By: Complaint of Fatigue;Weakness ACTIVITY/EXERCISE: Activity / Exercise Sit Edge Of Bed: 5 minutes Sit Edge Of Bed Assist: Stand By Assist EDUCATION: Education Persons Educated: Patient Patient Barriers To Learning: None Noted Interventions: Repetition of Instructions Teaching Methods: Verbal Instruction Patient Response: Verbalized Understanding;More Instruction Required Topics: Plan/Goals of PT Interventions;Mobility Progression;Use of Assistive Device/Orthosis;Safety Awareness;Up with Assist Only;Importance of Increasing Activity ASSESSMENT/PROGRESS: Assessment/Progress Impaired Mobility Due To: Pain;Decreased Activity Tolerance;Deconditioning Assessment/Progress: Should Improve w/ Continued PT Comments: Patient with improved activity tolerance this date. WIll continue to benefit from therapy for strngthening and endurance. AM-PAC 6 Clicks Basic Mobility Inpatient Turning from your back to your side while in a flat bed without using bed rails : A Little Moving from lying on your back to sitting on the side of a flatbed without using bedrails : A Little Moving to and from a bed to a chair (including a wheelchair): A Little Standing up from a chair using your arms (e.g. wheelchair, or bedside chair): A Little To walk in hospital room: A Little Climbing 3-5 steps with a railing: A Lot Raw Score: 17 Standardized (T-scale) Score: 39.67 Basic Mobility CMS 0-100%: 43.83 CMS G Code Modifier for Basic Mobility: CK GOALS: Goals Goal Formulation: With Patient Pt Will Go Supine To/From Sit: w/ Stand By Assist Pt Will Transfer Bed/Chair: w/ Stand By Assist Pt Will Transfer Sit to Stand: w/ Stand By Assist Pt Will Ambulate: 151-200 Feet, w/ Walker, w/ Stand By Assist PLAN: Plan Treatment Interventions: Mobility Training;Strengthening;Balance Activities Plan Frequency: 5 Days per Week PT Plan for Next Visit: Increase ambulation. RECOMMENDATIONS: PT Discharge Recommendations PT Discharge Recommendations: Inpatient Setting Equipment Recommendations: Erin Cuellar Therapist: Lisa Austin PT, DPT Date: 09/04/2018 * Vladimir Mckinney MD - 09/04/2018 7:40 AM CDT Cuco Gilbert Today's Date: 09/04/2018 Admission Date: 09/01/2018 LOS: 3 days Assessment/Plan: Active Problems: CKD (chronic kidney disease) Atrial fibrillation (HCC) Status post liver transplant (HCC) DM (diabetes mellitus) (HCC) Pneumonia Septic shock (HCC) Acute respiratory failure with hypoxia and hypercapnia (HCC) Shock (HCC) Hemoptysis Acute on chronic systolic heart failure (HCC) Supratherapeutic INR Atrial fibrillation with rapid ventricular response (HCC) Delirium Hospital course: Cuco Membreno a 73 y.o.male, PMH significant for ESLD s/p OLT, CAD, HTN, HLD, CHF, a fib, DM, CKD who presented to OSH on early 08/31 with c/o cough, hemoptysis. Was febrile upon arrival. With worsening respiratory failure through the course of the day/night, pt required intubation and was transferred to [facility] for further management on 09/01. Patient required pressor for shock, off since 09/03 0200. Self-extubated on 09/02 am and oxygenating well on room air. CT chest consistent with multi-focal pneumonia. BAL performed 09/01; cultures + klebsiella. Abx narrowed to rocepin today, continuing pulmonary hygiene. A.fib with RVR, with stable BP - restart PO metoprolol and will increase today. Patient delirious but improved today. Stable for floor. NEURO Twitching/shaking movements (resolved) - On admission, pt experienced intermittent, somewhat rhythmic muscular twitches of UE, most significantly RUE, which family reports is not a chronic symptom - tacro level WNL as below - did experience syncope ~2 weeks prior to admit which was reportedly worked up by fitness club manager without cause determined per family - CT head without acute hemorrhage Plan - Monitor Delirium (improved) - Trazodone, melatonin QHS - Haldol if needed - Delirium precautions PULM Acute hypoxic Respiratory failure, PNA, Hemoptysis (hypoxia resolved) - Presented to OSH ED with c/o cough, hemoptysis which was sudden onset Thurs AM between [id number]. - OSH course: - initial ABG 7.27/55/79/25 on ?Comfort flow, 35%, 20L - Repeat ABG 09/01 7.2/66/113/25 - unclear fiO2 - Post intubation - 7.33/52/142/26 - per notes, pt experienced significant worsening of his work of breathing and he was intubated at OSH, placed on MV 500, R 14, p5 - BNP 299 - was reportedly febrile to 102 on arrival - Given abx as below - CXR with R>L consolidation - CT scan c/w bilat GGO/consolidation concerning for PNA, also with some e/o pulm edema/small effusion which is less significant - Bronch with BAL completed, see procedure note for findings - Self extubated 09/02; now on RA Plan - ID as below - Pulm hygiene CV Shock (resolved), Hx HFrEF, CAD, HTN, A fib w/ RVR - Shock ddx likely septic vs cardiogenic, less likely hypovolemia - FIELD 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 meds include atorvastatin, lasix, metoprolol, aldactone, asa, lisinopril, warfarin - Started on NE at OSH, able to wean off briefly upon arrival but required again - Off pressor since 0200 this morning - S/p stress dose steroids at OSH - Trop 0.12->0.09->0.12, BNP 377 - Per family, received multiple bags of IVF at OSH - Imaging as above - Echo with EF 20%, mild , moderately reduced RV fx - Previous echo in 02/2018 with EF 30%, no mention of RV dysfunction, mild aortic stenosis Plan - ID as below - Holding FIELD 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 meds with shock - Continues to have tachycardia - restarted metoprolol; increase to 25mg BID today with improvement, can continue to up-titrate as able GI Hx ESLD s/p OLT 2010 - FIELD 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 meds include tacro and cellcept which he has not taken since Wed PM - MELD-Na score: 17 at 09/04/2018 3:28 AM MELD score: 17 at 09/04/2018 3:28 AM Calculated from: Serum Creatinine: 1.64 MG/DL at 09/04/2018 1:15 AM Serum Sodium: 138 MMOL/L (Rounded to 137) at 09/04/2018 1:15 AM Total Bilirubin: 1.4 MG/DL at 09/04/2018 1:15 AM INR(ratio): 1.5 at 09/04/2018 3:28 AM Age: 73 years Plan - Consult hepatology for recs with immunosuppression - recs continue tacro, hold cellcept - have asked to re-engage for recs r/t cellcept - daily tacro levels - goal 3-6 FEN - Speech evaluated patient - advanced diet as tolerated RENAL CKD - Baseline cr around 2, 2.08 on admit, BUN 49 - 1.6 today Plan - Monitor I/O closely - Avoid nephrotoxins, hypotension as able 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 with breakfast/lunch, 14U with dinner plus sliding scale as well as Levemir 36U QAM, 18U Qevening Plan - Continue NPH and SSI for now with close monitoring ID Septic shock, PNA - WBC on admit to OSH 5.5> peaked at 29; febrile to 102 on admit to OSH - Imaging as above - Procal 4.25 - Received cefepime, zosyn and vanc at OSH - UA with 1+ leuk at OSH - Strep penumo/legionella neg - RVP neg - Fungitell 105, aspergillus negative - BAL 09/01 - PJP, RVP, aspergillus, galactomannan Neg - sputum cx - klebsiella - angel susceptible - HSV, CMV neg - histoplasma, aspergillus - in process - afb, fungal cx with yeast/briseida Plan - zosyn, azithromycin > narrow to rocephin - 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, low threshold to add viral coverage if pt decompensates - Fungitell elevated, histoplasmosis urine ag - pending HEME Supratherapeutic INR - FIELD 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 warfarin - family reports compliance - OSH INR 3.6 > 8.2 - Received unknown amount of vit K PO at OSH - [facility] INR 8.2, TEG WNL though with hemoptysis - given ffp and vit K upon arrival - pts reports pt was started on indomethacin on Tuesday for gout by PCP - INR 1.5 today Plan - Daily INR, resume warfarin at 2.5 mg tonight - type/cross, consented for blood products if needed MSK Hx Gout - Hold FIELD 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 meds for now PPX: Lines: piv, picc Drains: na GI prophy: na DVT prophy: warfarin PT/OT: yes Insulin: yes Code Status: full Dispo: stable for floor Dianelys Alexander APRN Pulmonary Critical Care Pager: [phone] M3 team pager [phone] ATTESTATION I personally interviewed and examined the patient. I have reviewed the history , physical, impression and plan outlined by the Nurse Practitioner. The patient presents with (HPI) severe pneumonia, immunosuppression, delirium, On examination there is alert, disoriented, pleasant, no distress, easy work of breathing, abdomen soft, regular rate and rhythm, My impression is improving pneumonia in the setting of immunosuppression and ongoing management of A. fib with RVR as well as delirium, My plan is continue with supportive care for delirium as well as sleep hygiene. Uptitrate metoprolol for control of heart rate in the setting of atrial fibrillation. Continue with antimicrobials for pneumonia. Appropriate for floor transfer. Staff name: Vladimir Mckinney MD Date: 09/04/2018 Subjective: Cuco Gilbert is a 73 y.o. who is resting in bed. States he slept well but is very uncomfortable at the present moment. No other complaints. ROS: Constitutional: negative for fevers Eyes: negative for visual disturbance Ears, nose, mouth, throat, and face: negative for nasal congestion and hoarseness Respiratory: negative for cough, + dyspnea which is positional Cardiovascular: negative for chest pain, palpitations Gastrointestinal: negative for nausea, vomiting Genitourinary:negative for dysuria Musculoskeletal:negative for myalgias Neurological: negative for headaches and dizziness Objective: Medications: Scheduled Meds: aspirin chewable tablet 81 mg 81 mg Oral QDAY azithromycin (ZITHROMAX) 500 mg in sodium chloride 0.9% (NS) IVPB 500 mg Intravenous Q24H* insulin aspart U-100 (NOVOLOG FLEXPEN) injection PEN 0-14 Units 0-14 Units Subcutaneous 5 X Day insulin NPH (HUMULIN N KwikPen) injection PEN 10 Units 10 Units Subcutaneous BID (8-21) lidocaine (LIDODERM) 5 % topical patch 1 patch 1 patch Topical QDAY melatonin tablet 5 mg 5 mg Oral QHS metoprolol tartrate (LOPRESSOR) tablet 12.5 mg 12.5 mg Oral BID pantoprazole (PROTONIX) injection 40 mg 40 mg Intravenous QDAY piperacillin/tazobactam (ZOSYN) 3.375 g/50 mL iso-osmotic IVPB 3.375 g Intravenous Q6H* senna (SENOKOT) oral syrup 8.8 mg 8.8 mg Oral BID tacrolimus (PROGRAF) capsule 0.5 mg 0.5 mg Oral BID warfarin (COUMADIN) tablet 2.5 mg 2.5 mg Oral QHS Continuous Infusions: dexmedetomidine (PRECEDEX) 400 mcg in sodium chloride 0.9% (NS) 100 mL IV infusion Stopped (09/02/18 2250) PRN and Respiratory Meds:acetaminophen Q6H PRN, amitriptyline/gabapentin/emu oil (#) Q8H PRN, oxyCODONE Q6H PRN, traZODone QHS PRN Vital Signs: Last Filed Vital Signs: 24 Hour Range BP: 134/81 (09/04 700) Temp: 37.3 C (99.1 F) (09/04 400) Pulse: 130 (09/04 700) Respirations: 23 PER MINUTE (09/04 700) SpO2: 94 % (09/04 700) O2 Delivery: None (Room Air) (09/04 700) SpO2 Pulse: 150 (09/04 700) BP: (95-157)/(54-101) ABP: (111-133)/(48-59) Temp: [36.6 C (97.8 F)-37.4 C (99.4 F)] Pulse: [96-155] Respirations: [15 PER MINUTE-32 PER MINUTE] SpO2: [92 %-97 %] O2 Delivery: None (Room Air) Intensity Pain Scale (Self Report): 8 (09/04/18399) Vitals: 09/01/18 1326 09/01/18 1400 09/01/18 1658 Weight: 118.4 kg (261 lb 0.4 oz) (S) 115.9 kg (255 lb 8.2 oz) 115.9 kg (255 lb 8.2 oz) Intake/Output Summary: (Last 24 hours) Intake/Output Summary (Last 24 hours) at 09/04/18 0740 Last data filed at 09/04/18 0200 Gross per 24 hour Intake 420 ml Output 1100 ml Net -680 ml Physical Exam: Physical Exam General appearance: alert, no distress Head: Normocephalic, without obvious abnormality Eyes: conjunctivae/corneas clear. PERRL Mouth/throat: Moist mucous membranes, Neck: supple, symmetrical, trachea midline Lungs: coarse to auscultation bilaterally Heart: irregular rate and rhythm Abdomen: soft, non-tender. Bowel sounds +. Extremities: extremities normal, atraumatic Neurologic: Grossly normal Peripheral pulses: 2+ and symmetric Cap Refill: <3 sec Skin: Skin color, texture, turgor normal. No rashes or lesions LABS: Recent Labs 09/01/18 1345 09/02/18 0238 09/03/18 0235 09/04/18 0115 NA 135* 134* 137 138 K 4.4 4.5 4.3 4.2 CL 103 103 106 105 CO2 23 23 24 24 GAP 9 8 7 9 BUN 49* 50* 46* 41* CR 2.08* 1.77* 1.81* 1.64* GLU 222* 185* 81 110* CA 8.9 8.9 8.8 9.1 ALBUMIN 3.0* 2.9* 2.7* 3.1* MG 1.7 1.7 1.7 2.0 PO4 4.5 3.2 2.0 1.9* TSH 0.840 -- -- -- Recent Labs 09/01/18 1345 09/01/18 1930 09/02/18 0238 09/02/18 1900 09/03/18 0105 09/03/18 0235 09/03/18 0644 09/04/18 0115 09/04/18 0328 WBC 20.0* -- 12.4* -- -- 7.8 -- -- 8.3 HGB 13.4* -- 13.0* -- -- 11.1* -- -- 11.5* HCT 42.3 -- 41.6 -- -- 35.7* -- -- 36.5* PLTCT 223 -- 217 -- -- 148* -- -- 156 INR 8.2* -- 3.8* -- -- 1.8* -- -- 1.5* AST 7 -- 7 -- -- 6* -- 9 -- ALT 4* -- 3* -- -- 3* -- <3* -- ALKPHOS 64 -- 52 -- -- 45 -- 55 -- TNI 0.12* 0.09* 0.12* 0.15* 0.12* -- 0.10* -- -- Estimated Creatinine Clearance: 52.7 mL/min (A) (based on SCr of 1.64 mg/dL (H)) . Vitals: 09/01/18 1326 09/01/18 1400 09/01/18 1658 Weight: 118.4 kg (261 lb 0.4 oz) (S) 115.9 kg (255 lb 8.2 oz) 115.9 kg (255 lb 8.2 oz) Recent Labs 09/01/18 1533 09/02/18 0238 PHART 7.29* 7.30* PO2ART 146* 151* Radiology and Other Diagnostic Procedures Review: Reviewed * Madison España, RN - 09/04/2018 5:26 AM CDT 1900 ~ Report received from day shift RN. A/O x 4 at this time/following commands and complaining of neuropathy pain. Lines/alarms verified. Bedside safety check completed. 1999 ~ Head to toe assessment completed and documented per ICU spreadsheets. VSS per pt trends. Remains in afib with rate uncontrolled. Will continue to monitor. 0100 ~ Dr. Hopper notified of pt having 5-7 beat runs of vtach. Will draw CMP , mag, and phos early. 0300 ~ Dr. Hopper notified of heart rate still getting up to the 170s-190s at times before coming back down to the 110s-140s. Order for IV metoprolol received. Will administer and continue to monitor. 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 Patient self extubated 09/02. Mental / Cognitive Status: Alert;Oriented;Cooperative Persons Present: Spouse Pain: Patient complains of pain;Patient does not rate pain Pain Location: Bilateral;Foot;Chest Pain Interventions: Patient agrees to participate in therapy;Treatment altered to patient's pain tolerance Comments: Patient on RA. Ambulation Assist: Independent Mobility in Community without Device Patient Owned Equipment: None Home Situation: Lives with Family Type of Home: House Entry Stairs: No Stairs In-Home Stairs: No Stairs ROM: ROM LE ROM: Bilateral;WFL STRENGTH: Strength Overall Strength: WFL POSTURE/NEURO: Posture / Neurological Posture/Neuro Comments: Antonian reports neuropathy in B feet. BED MOBILITY/TRANSFERS: Bed Mobility/Transfers Comments: Patient up in chair at start of session. Transfer Type: Sit to/from Stand Transfer: Assistance Level: To/From;Bed Side Chair;Moderate Assist Transfer: Assistive Device: Roller Walker Transfers: Type Of Assistance: Verbal Cues;For Safety Considerations End Of Activity Status: Up in Chair;Nursing Notified;Instructed Patient to Request Assist with Mobility;Instructed Patient to Use Call Light BALANCE: Balance Sitting Balance: Standby Assist Standing Balance: Static Standing Balance;2 UE support;Standby Assist;Dynamic Standing Balance;Minimal Assist GAIT: Gait Gait Distance: 20 feet Gait: Assistance Level: Minimal Assist Gait: Assistive Device: Roller Walker Gait: Descriptors: Pace: Slow;Decreased step length;No balance loss Activity Limited By: Complaint of Pain EDUCATION: Education Persons Educated: Patient/Family Patient Barriers To Learning: None Noted Interventions: Repetition of Instructions Teaching Methods: Verbal Instruction Patient Response: Verbalized Understanding;More Instruction Required Topics: Plan/Goals of PT Interventions;Mobility Progression;Use of Assistive Device/Orthosis;Safety Awareness;Up with Assist Only;Importance of Increasing Activity ASSESSMENT/PROGRESS: Assessment/Progress Impaired Mobility Due To: Pain;Decreased Activity Tolerance;Deconditioning Assessment/Progress: Should Improve w/ Continued PT AM-PAC 6 Clicks Basic Mobility Inpatient Turning from your back to your side while in a flat bed without using bed rails : A Little Moving from lying on your back to sitting on the side of a flatbed without using bedrails : A Little Moving to and from a bed to a chair (including a wheelchair): A Little Standing up from a chair using your arms (e.g. wheelchair, or bedside chair): A Lot To walk in hospital room: A Little Climbing 3-5 steps with a railing: A Lot Raw Score: 16 Standardized (T-scale) Score: 38.32 Basic Mobility CMS 0-100%: 47.12 CMS G Code Modifier for Basic Mobility: CK GOALS: Goals Goal Formulation: With Patient Pt Will Go Supine To/From Sit: w/ Stand By Assist Pt Will Transfer Bed/Chair: w/ Stand By Assist Pt Will Transfer Sit to Stand: w/ Stand By Assist Pt Will Ambulate: 151-200 Feet, w/ Walker, w/ Stand By Assist PLAN: Plan Treatment Interventions: Mobility Training;Strengthening;Balance Activities Plan Frequency: 5 Days per Week PT Plan for Next Visit: Increase ambulation. RECOMMENDATIONS: PT Discharge Recommendations PT Discharge Recommendations: Home with Assistance;Home Health Setting;versus; Inpatient Setting (dependent on progression with mobility) Equipment Recommendations: Roller Walker;None (will continue to assess need) G-Codes: Mobility [id number] Current Status: 40-59% Impairment G8979 Goal Status: 20-39% Impairment Based on above evaluation and clinical judgment. Therapist: Lisa Austin PT, DPT Date: 09/03/2018 * Obdulia Mac - 09/03/2018 1:33 PM CDT SPEECH-LANGUAGE PATHOLOGY CLINICAL SWALLOW ASSESSMENT EVALUATION SUMMARY A clinical swallow evaluation was completed. Oral phase of swallow noted to be minimally impaired (prolonged mastication, which is consistent w/ pt's baseline) . Pharyngeal stage of swallow judged to be WFL. No s/s of aspiration with any solid or liquid consistencies. Pt able to pass 3oz Water Protocol indicating unlikely presence of silent aspiration events. Pt reports no hx of dysphagia. Reports occurrence of pneumonia ~3 months ago with current concern for pneumonia. Otherwise, pt with no additional hx of pneumonia. Please see below for details/recommendations. Swallow Recommendations Full Liquid Diet, Thin Liquids (Advance to regular as Tolerated) Swallow Strategies: Small Bites/Sips, Slow Rate of Intake Medications as tolerated Pt determined to be at baseline; No further speech therapy warranted Oral Stage Summary*: Oral stage mildly impaired. Normal withdraw. Formation and mastication noted to be mildly prolonged ([id number] reports this is baseline). Do not anticipate presence of abnormal premature spilllage. Pharyngeal Stage Summary*: Pharyngeal stage judged to be WFL. Swallow inititation timely. Laryngeal elevation judged to be WFL. No s/s of aspiration with any consistencies trialed. Pt exhibits no s/s of aspiration with any consistencies trialed . Pt able to pass 3oz Water Protocol indicating unlikely presence of silent aspiration events. Plan: Patient Functioning at Baseline. No Further Speech Therapy Indicated at this Time. Prognosis: Good NOMS Dysphagia Ratin-Minimal Dysphagia -Swallow safe, pt eats/drinks indep, may require min cues. Usually self-cues when difficulty occurs. May need to avoid specific food items (e.g., popcorn & nuts) or need more time (due to dysphagia). 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 CT Chest 09/01/18 IMPRESSION 1. Patchy consolidative and groundglass opacities throughout both lungs most compatible with multifocal pneumonia mixed with atelectasis. Small right and trace left pleural effusions, likely parapneumonic rather than sequela of CHF or fluid overload. 2. Prior median sternotomy and CABG with mild cardiomegaly, dense beaver coronary artery calcification, and aortic valve calcification. 3. Mildly prominent mediastinal lymph nodes which are likely reactive. 4. Persistent upper abdominal ascites. 5. Mild diffuse hepatic steatosis. CT Head 09/01/18 IMPRESSION 1. No acute intracranial hemorrhage or mass effect. 2. Mild generalized cerebral volume loss and mild to moderate nonspecific white matter disease, likely related to chronic microvascular ischemia. Hearing: WFL Psychosocial Status: Willing and Cooperative to Participate Persons Present: (brother in law) Subjective* Pain: Patient demonstrates no signs of pain Trach Presence: No Feeding Tube Present During Eval: None Nutrition* Nutrition Prior To Hospitalization: Regular, Thin Liquids Current Form Of Nutrition: Full Liquid, Thin Liquids Oral Mech Exam Oral Mech WFL*: Yes Education* Persons Educated: Pt/Family Barriers To Learning: Cognitive Deficits Interventions: Family Educated, Staff Educated Teaching Methods: Verbal Topics: Dysphagia Patient Response: Verbalized Understanding Goal Formulation: With Pt/Family Therapist:Spenser [place]/[facility]-[employer] PAINTER (Pager [phone]; Voalte: [id number]) Date:09/03/2018 * Beatrice Piña RN - 09/03/2018 11:34 AM CDT [id number]: Report received. Bedside safety check completed. Pt alert to self and place. Pt tachycardic, THERAPY TECH Nu notified. IV metoprolol ordered. VSS per pt trends. Pt agitated, causing increase in HR. Team notified. Assessment complete see ICU flow sheet. 0900: Arterial line d/c'd 1200: Pt pivoted to chair with x2 assist. Pt less agitated. * Vladimir Mckinney MD - 09/03/2018 7:31 AM CDT General Progress Note Name: Cuco Gilbert Today's Date: 09/03/2018 Admission Date: 09/01/2018 LOS: 2 days Assessment/Plan: Active Problems: CKD (chronic kidney disease) Atrial fibrillation (HCC) Status post liver transplant (HCC) DM (diabetes mellitus) (HCC) Pneumonia Septic shock (HCC) Acute respiratory failure with hypoxia and hypercapnia (HCC) Shock (HCC) Hemoptysis Acute on chronic systolic heart failure (HCC) Supratherapeutic INR Atrial fibrillation with rapid ventricular response (HCC) Delirium Cuco Gilbert is a 73 y.o. male, PMH significant for ESLD s/p OLT, CAD, HTN , HLD, CHF, a fib, DM, CKD who presented to OSH on early 08/31 with c/o cough, hemoptysis. Was febrile upon arrival. With worsening respiratory failure through the course of the day/night, pt required intubation and was transferred to [facility] for further management on 09/01. Patient required pressor for shock, off since 09/03 0200. Self-extubated on 09/02 am and oxygenating well on room air. CT chest consistent with multi-focal pneumonia. BAL performed 09/01. Following cultures - ngtd. Continue antibiotics (zosyn, azithromycin, d/c'ed vanc 09/03) and pulmonary hygiene. A.fib with RVR, stable BP - start PO metoprolol 12.5 mg BID. Patient delirious and requiring frequent reorientation. NEURO Twitching/shaking movements - Pt experiencing intermittently somewhat rhythmic muscular twitches of UE, most significantly RUE, which family reports is not a chronic symptom - tacro level WNL as below - did experience syncope ~2 weeks ago which was reportedly worked up by fitness club manager without cause determined per family - Family denies pt co any MATOS, dizziness or vision changes prior to intubation - CT head without acute hemorrhage Plan - Monitor neuro status closely Delirium - Trazodone qhs prn, melatonin prn - Haldol if neede - Delirium precautions PULM Acute hypoxic Respiratory failure, PNA, Hemoptysis (hypoxia resolved) - Presented to OSH ED with c/o cough, hemoptysis which was sudden onset Thurs AM between [id number]. - OSH course: - initial ABG 7.27/55/79/25 on ?Comfort flow, 35%, 20L - Repeat ABG 09/01 7.2/66/113/25 - unclear fiO2 - Post intubation - 7.33/52/142/26 - per notes, pt experienced significant worsening of his work of breathing and he was intubated at OSH, placed on MV 500, R 14, p5 - BNP 299 - was reportedly febrile to 102 on arrival - Given abx as below - CXR with R>L consolidation - CT scan c/w bilat GGO/consolidation concerning for PNA, also with some e/o pulm edema/small effusion which is less significant - e/o bloody secretions on suctioning - Bronch with BAL completed, see procedure note for findings - Self extubated 09/02 Plan - ID as below - Wean oxygen as tolerated CV Shock, Hx HFrEF, CAD, HTN, A fib w/ RVR (shock resolved) - Shock ddx likely septic vs cardiogenic, less likely hypovolemia - 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 meds include atorvastatin, lasix, metoprolol, aldactone, asa, lisinopril, warfarin - Started on NE at OSH, able to wean off briefly upon arrival but required again - S/p stress dose steroids at OSH - Trop 0.12->0.09->0.12, BNP 377 - Per family, received multiple bags of IVF at OSH - With some 1-2+ edema in extremities - Imaging as above - scvo2 72.5 - Echo with EF 20%, mild , moderately reduced RV fx - Previous echo in 02/2018 with EF 30%, no mention of RV dysfunction, mild aortic stenosis Plan - ID as below - Off pressor since 0200 this morning - Holding 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 meds with shock - Continues to have tachycardia - will restart metoprolol at 12.5 mg BID ( titrate prn) GI Hx ESLD s/p OLT 2010 - 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 meds include tacro and cellcept which he has not taken since Wed PM - LFT WNL at OSH, Bili 1.3 Plan - Consult hepatology for recs with immunosuppression - recs continue tacro, hold cellcept - daily tacro levels - goal 3-6 FEN - Speech evaluated patient - advance diet as tolerated RENAL CKD - Baseline cr around 2, 2.08 on admit, BUN 49 Plan - Monitor I/O closely - Avoid nephrotoxins, hypotension as able 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 with breakfast/lunch, 14U with dinner plus sliding scale as well as Levemir 36U QAM, 18U Qevening Plan - Continue NPH and SSI for now with close monitoring - since patient is resuming diet today, may need to adjust tomorrow and resume levemir ID Septic shock, PNA (shock resolved) - WBC on admit to OSH 5.5> peaked at 29; febrile to 102 on admit to OSH - Imaging as above - Procal 4.25 - Received cefepime, zosyn and vanc at OSH - UA with 1+ leuk at OSH - Strep penumo/legionella neg - RVP neg - Fungitell 105, aspergillus negative - BAL 09/01 - PJP, RVP, aspergillus neg Plan - Follow Blood, sputum, urine cx - ngtd - BAL - hsv, cmv, afb, fungal - in process - Continue zosyn, azithromycin - d/c Vanc today - 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, low threshold to add viral coverage if pt decompensates - Fungitell elevated, will order histoplasmosis urine ag, galactomannan pending HEME Supratherapeutic INR - 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 warfarin - family reports compliance - OSH INR 3.6 > 8.2 - Received unknown amount of vit K PO at OSH - [facility] INR 8.2, TEG WNL though with hemoptysis - given ffp and vit K upon arrival - pts reports pt was started on indomethacin on Jerry for gout by PCP PLan - Daily INR, resume warfarin at 2.5 mg tonight - type/cross, consented for blood products if needed MSK Hx Gout - Hold 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 meds for now IVF: na, can NICOM if needed Diet: NPO Prophylaxis Review: Lines: Yes; Central Line; Indication: Frequent blood draws, Med not deliverable peripherally and Hemodynamic monitoring; Type: PICC Urinary Catheter: No Antibiotic Usage: Zosyn/azithromycin Procedures: Bronch VTE: Pharmacological prophylaxis; Warfarin Code Status: Full Code Dispo: Continue ICU admission Pt seen and discussed with Dr. Alex Iniguez M.D. Internal Medicine Resident | PGY2 (Pager) ATTESTATION I have seen, personally fully evaluated, and discussed patient with Dr. Iniguez. I agree with the objective findings and agree with the plan of care as documented by the resident with the exceptions noted. The patient is critically ill with resolving septic shock, immunosuppression, status post liver transplant, delirium, atrial fibrillation with rapid ventricular response , resolving acute kidney injury. I spent 60 minutes (excluding time spent performing or supervising any procedures) providing and personally directing critical care services including physical exam, management of delirium, management of rapid ventricular response, review of radiographic and labratory data and formulation of a plan of care. Mr. Gilbert remains critically ill. Overall trend of hemodynamics and organ function is toward improvement. He does continue to have significant problems with atrial fibrillation and rapid ventricular response as well as ongoing delirium. Managing delirium with trazodone, Seroquel, melatonin as well as conservative measures with frequent reorientation and environmental measures. Add an oral metoprolol for rapid ventricular response. Continue with empiric antibiotics. Evaluate for possible chronic aspiration with speech swallow eval. Updated patient and family at bedside. Continue ICU care and monitoring. Staff name: Vladimir Mckinney MD Subjective Patient agitated overnight and received trazodone and Seroquel. Patient continues to moan and cry out about pain - particularly chest pain when trying to take deep breaths. Says he is in [place] this morning. Review of Systems Constitutional: Positive for malaise/fatigue. Negative for fever. HENT: Negative. Eyes: Negative. Respiratory: Positive for shortness of breath. Cardiovascular: Positive for chest pain and leg swelling. Gastrointestinal: Negative. Genitourinary: Negative. Musculoskeletal: Positive for back pain and myalgias. Skin: Negative. Neurological: Positive for weakness. Psychiatric/Behavioral: The patient is nervous/anxious. Medications Scheduled Meds: aspirin chewable tablet 81 mg 81 mg Oral QDAY azithromycin (ZITHROMAX) 500 mg in sodium chloride 0.9% (NS) IVPB 500 mg Intravenous Q24H* insulin aspart U-100 (NOVOLOG FLEXPEN) injection PEN 0-14 Units 0-14 Units Subcutaneous 5 X Day insulin NPH (HUMULIN N KwikPen) injection PEN 10 Units 10 Units Subcutaneous BID (8-) lidocaine (LIDODERM) 5 % topical patch 1 patch 1 patch Topical QDAY melatonin tablet 3 mg 3 mg Oral QHS pantoprazole (PROTONIX) injection 40 mg 40 mg Intravenous QDAY piperacillin/tazobactam (ZOSYN) 3.375 g/50 mL iso-osmotic IVPB 3.375 g Intravenous Q6H* senna (SENOKOT) oral syrup 8.8 mg 8.8 mg Oral BID tacrolimus (PROGRAF) capsule 0.5 mg 0.5 mg Oral BID vancomycin (VANCOCIN) 1.5 g in dextrose 5% (D5W) IVPB 1.5 g Intravenous Q24H Continuous Infusions: dexmedetomidine (PRECEDEX) 400 mcg in sodium chloride 0.9% (NS) 100 mL IV infusion Stopped (09/02/18 2250) norepinephrine (LEVOPHED) 4 mg in dextrose 5% (D5W) 250 mL IV drip (std conc ) Stopped (09/03/18 0201) PRN and Respiratory Meds:acetaminophen Q6H PRN, amitriptyline/gabapentin/emu oil (#) Q8H PRN, oxyCODONE Q6H PRN, traZODone QHS PRN, vancomycin, pharmacy to manage Per Pharmacy Prescriptions Prior to Admission Medication Sig Dispense Refill Last Dose allopurinol (ZYLOPRIM) 100 mg tablet Take 100 mg by mouth daily. Taking aspirin 81 mg chewable tablet Chew 1 tablet by mouth daily. Take with food. 90 tablet 3 Taking atorvastatin (LIPITOR) 20 mg tablet Take 10 mg by mouth daily. blood sugar diagnostic (GLUCOSE METER TEST STRIP) test strip Use 1 Strip as directed three times daily. accuchek wild Taking Blood-Glucose Meter kit Accuchek WILD METER 1 Kit 0 Taking Cholecalciferol (Vitamin D3) 1,000 unit PO Cap Take 1 Cap by mouth Twice Daily. 60 Cap 3 Not Taking cyanocobalamin(DIL) (VITAMIN B-12) 100 mcg/mL Inject into the muscle every 30 days. Not had for 8 months Not Taking diclofenac(+) (VOLTAREN) 1 % topical gel Apply 4 g topically to affected area twice daily. Docusate Calcium 50 mg cap Take 100 mg by mouth at bedtime daily. Taking ergocalciferol (VITAMIN D-2) 50,000 unit capsule Take one capsule by mouth every 7 days for 12 doses. 12 capsule 0 fish oil- omega 3-DHA/EPA 300/1,000 mg capsule Take 1 capsule by mouth twice daily. furosemide (LASIX) 20 mg tablet Take 3 tablets by mouth every morning. After having your labs checked, your doctors may increase your dose back to 120 mg by mouth once daily 90 tablet 3 Taking furosemide (LASIX) 40 mg tablet Take 80 mg by mouth every morning. HYDROcodone/acetaminophen (NORCO) 5/325 mg tablet Take 2 tablets by mouth three times daily Not Taking insulin aspart (NOVOLOG) 100 unit/mL flexPEN Inject 9 units with breakfast, 9 units with lunch, and 11 units with dinner. Plus 2 for every 40 >140 Max 80. (Patient taking differently: Inject 13 units with breakfast, 13 units with lunch , and 14 units with dinner. Plus 2 for every 40 >140 Max 80.) 75 mL 3 Taking insulin detemir(+) (LEVEMIR FLEXPEN) 100 unit/mL (3 mL) injection pen 34 U am and 16 U pm plus 2 units to prime pen each time. (Patient taking differently : Inject 36units every morning, then 18 units every evening) 4 box 3 Taking lidocaine 5 % oint topical ointment Apply topically to affected area three times daily. lisinopril (PRINIVIL; ZESTRIL) 5 mg tablet Take 1 tablet by mouth daily. 90 tablet 3 Taking metoprolol XL (TOPROL XL) 100 mg extended release tablet Take 50 mg by mouth daily. metoprolol XL (TOPROL XL) 50 mg extended release tablet Take 1 tablet by mouth daily. 90 tablet 3 med correction metoprolol XL (TOPROL XL) 50 mg extended release tablet Take 1 tablet by mouth daily. 30 tablet 3 Not Taking mycophenolate mofetil (CELLCEPT) 250 mg PO capsule Take 2 Caps by mouth Twice Daily. [address](+) (PRILOSEC) 40 mg capsule Take 40 mg by mouth daily before breakfast. other medication 1 Dose. CHAZ COMFORT get for feet. Taking oxyCODone (ROXICODONE) 5 mg tablet Take 5 mg by mouth every 6 hours as needed Not Taking oxyCODONE (ROXICODONE, OXY-IR) 5 mg tablet Take 1 tablet by mouth daily for pain. 18 tablet 0 Not Taking oxycodone(+) (ROXICODONE, OXY-IR) 10 mg tablet Take 2 tablets by mouth every morning, then 3 tablets every bedtime pregabalin (LYRICA) 150 mg capsule Take 150 mg by mouth twice daily. Taking rOPINIRole (REQUIP) 1 mg tablet Take 1 mg by mouth twice daily. Taking senna/docusate (SENOKOT-S) 8.6/50 mg tablet Take 1 tablet by mouth daily. Taking spironolactone (ALDACTONE) 25 mg tablet Take 25 mg by mouth twice daily. Take with food. tacrolimus (PROGRAF) 0.5 mg capsule Take one capsule by mouth twice daily. 60 capsule 5 Trolamine Salicylate 10 % crea Apply topically to affected area twice daily as needed. ursodiol (RANJIT) 250 mg tablet Take 1 tablet by mouth twice daily with meals. 60 tablet 3 Taking warfarin (COUMADIN) 2.5 mg tablet Take 1 tablet by mouth as directed. Take 2.5 mg by mouth two times weekly on Tuesday & Tuesday. Take in the evening. 90 tablet 3 Taking warfarin (COUMADIN) 5 mg tablet Take 1 tablet by mouth as directed. Take 5 mg by mouth five times weekly on Tuesday, Tuesday, Tuesday, , Tuesday. Take in the evening. 90 tablet 3 Taking Allergies Allergies Allergen Reactions Demerol [Meperidine] HIVES and SWELLING Morphine ANAPHYLAXIS Objective Vital Signs: Last Filed Vital Signs: 24 Hour Range Temp: 37 C (98.6 F) (09/03 0400) Pulse: 118 (09/03 0500) Respirations: 23 PER MINUTE (09/03 0500) SpO2: 98 % (09/03 0500) O2 Delivery: Nasal Cannula (09/03 0500) SpO2 Pulse: 80 (09/03 0500) ABP: (95-126)/(41-60) Temp: [36.7 C (98.1 F)-37.9 C (100.2 F)] Pulse: [87-139] Respirations: [12 PER MINUTE-33 PER MINUTE] SpO2: [92 %-98 %] O2 Delivery: Nasal Cannula Intensity Pain Scale (Self Report): 9 (09/03/18 0230) Vitals: 09/01/18 1326 09/01/18 1400 09/01/18 1658 Weight: 118.4 kg (261 lb 0.4 oz) (S) 115.9 kg (255 lb 8.2 oz) 115.9 kg (255 lb 8.2 oz) Intake/Output Summary: (Last 24 hours) Intake/Output Summary (Last 24 hours) at 09/03/18 0732 Last data filed at 09/03/18 0700 Gross per 24 hour Intake 1583.82 ml Output 1010 ml Net 573.82 ml Stool Occurrence: 1 Ventilator/ Respiratory Support: No Physical Exam Physical Exam Constitutional: He is well-developed, well-nourished, and in no distress. No distress. HENT: Head: Normocephalic and atraumatic. Eyes: Pupils are equal, round, and reactive to light. Conjunctivae and EOM are normal. Neck: Normal range of motion. Neck supple. Cardiovascular: Intact distal pulses. An irregularly irregular rhythm present. Tachycardia present. Pulmonary/Chest: Effort normal. Decreased breath sounds at bases Abdominal: Soft. Bowel sounds are normal. He exhibits no distension. Musculoskeletal: Normal range of motion. He exhibits edema. Neurological: He is alert. Oriented to self, situation, will sometimes be oriented to place and time, waxes and wanes Skin: Skin is warm. No rash noted. Psychiatric: Waxing and waning mental status with anxious/agitated mood. Vitals reviewed. Lab Review 24-hour labs: Results for orders placed or performed during the hospital encounter of (from the past 24 hour(s)) POC GLUCOSE Collection Time: 09/02/18 4:14 PM Result Value Ref Range Glucose, POC 153 (H) 70 - 100 MG/DL TROPONIN-I Collection Time: 09/02/18 7:00 PM Result Value Ref Range Troponin-I 0.15 (H) 0.0 - 0.05 NG/ML POC GLUCOSE Collection Time: 09/02/18 8:52 PM Result Value Ref Range Glucose, POC 124 (H) 70 - 100 MG/DL TROPONIN-I Collection Time: 09/03/18 1:05 AM Result Value Ref Range Troponin-I 0.12 (H) 0.0 - 0.05 NG/ML CBC AND DIFF Collection Time: 09/03/18 2:35 AM Result Value Ref Range White Blood Cells 7.8 4.5 - 11.0 K/UL RBC 4.59 4.4 - 5.5 M/UL Hemoglobin 11.1 (L) 13.5 - 16.5 GM/DL Hematocrit 35.7 (L) 40 - 50 % MCV 77.7 (L) 80 - 100 FL MCH 24.3 (L) 26 - 34 PG MCHC 31.2 (L) 32.0 - 36.0 G/DL RDW 18.9 (H) 11 - 15 % Platelet Count 148 (L) 150 - 400 K/UL MPV 7.7 7 - 11 FL Neutrophils 85 (H) 41 - 77 % Lymphocytes 10 (L) 24 - 44 % Monocytes 4 4 - 12 % Eosinophils 1 0 - 5 % Basophils 0 0 - 2 % Absolute Neutrophil Count 6.60 1.8 - 7.0 K/UL Absolute Lymph Count 0.80 (L) 1.0 - 4.8 K/UL Absolute Monocyte Count 0.30 0 - 0.80 K/UL Absolute Eosinophil Count 0.10 0 - 0.45 K/UL Absolute Basophil Count 0.00 0 - 0.20 K/UL PROTIME INR (PT) Collection Time: 09/03/18 2:35 AM Result Value Ref Range INR 1.8 (H) 0.8 - 1.2 COMPREHENSIVE METABOLIC PANEL Collection Time: 09/03/18 2:35 AM Result Value Ref Range Sodium 137 137 - 147 MMOL/L Potassium 4.3 3.5 - 5.1 MMOL/L Chloride 106 98 - 110 MMOL/L Glucose 81 70 - 100 MG/DL Blood Urea Nitrogen 46 (H) 7 - 25 MG/DL Creatinine 1.81 (H) 0.4 - 1.24 MG/DL Calcium 8.8 8.5 - 10.6 MG/DL Total Protein 4.9 (L) 6.0 - 8.0 G/DL Total Bilirubin 1.4 (H) 0.3 - 1.2 MG/DL Albumin 2.7 (L) 3.5 - 5.0 G/DL Alk Phosphatase 45 25 - 110 U/L AST (SGOT) 6 (L) 7 - 40 U/L CO2 24 21 - 30 MMOL/L ALT (SGPT) 3 (L) 7 - 56 U/L Anion Gap 7 3 - 12 eGFR Non 37 (L) >60 mL/min eGFR 45 (L) >60 mL/min MAGNESIUM Collection Time: 09/03/18 2:35 AM Result Value Ref Range Magnesium 1.7 1.6 - 2.6 mg/dL PHOSPHORUS Collection Time: 09/03/18 2:35 AM Result Value Ref Range Phosphorus 2.0 2.0 - 4.5 MG/DL POC GLUCOSE Collection Time: 09/03/18 2:36 AM Result Value Ref Range Glucose, POC 84 70 - 100 MG/DL TROPONIN-I Collection Time: 09/03/18 6:44 AM Result Value Ref Range Troponin-I 0.10 (H) 0.0 - 0.05 NG/ML POC GLUCOSE Collection Time: 09/03/18 8:39 AM Result Value Ref Range Glucose, POC 68 (L) 70 - 100 MG/DL TACROLIMUS LEVEL(FK506) Collection Time: 09/03/18 8:40 AM Result Value Ref Range Tacrolimus 4.7 2 - 15 NG/ML POC GLUCOSE Collection Time: 09/03/18 9:40 AM Result Value Ref Range Glucose, POC 89 70 - 100 MG/DL POC GLUCOSE Collection Time: 09/03/18 12:35 PM Result Value Ref Range Glucose, POC 181 (H) 70 - 100 MG/DL POC GLUCOSE Collection Time: 09/03/18 2:22 PM Result Value Ref Range Glucose, POC 162 (H) 70 - 100 MG/DL Point of Care Testing (Last 24 hours) Glucose: 81 (09/03/18 0237) POC Glucose (Download): 84 (09/03/18 2490) Radiology and other Diagnostics Review: Pertinent radiology reviewed. Vanessa Iniguez MD Internal Medicine PGY2 (Pager) * Jeanne Barrera, RN - 09/02/2018 10:15 PM CDT 1930: Report received and care assumed. Bedside safety check complete. Pt alert and oriented x4. Norepinephrine and precedex drips verified. VS stable, per pt trend. 2L NC. Assessment completed, see doc flowsheets. Will continue to monitor. 2030: Trop 0.15. This RN to pt room, pt complaining of chest pain. EKG obtained. Reported to Dr. Stevenson. Will continue to monitor at this time and trend troponin. 2200: Pt resting comfortably at this time. 2250: Pt seems to be increasingly delirious. Discussed with med team. Will pause precedex drip per provider order. Dr. Mc to order trazodone. 0200: Norepinephrine drip stopped at this time. 0300: Notified Dr. Stevenson of HR 110s-130s. Order to notify if HR sustaining 140s. Will continue to monitor. * Zen Muñiz, RT - 09/02/2018 2:44 PM CDT RT Adult Assessment Note NAME:Cuco Gilbert :1945 AGE: 73 y.o. ADMISSION DATE: 09/01/2018 DAYS ADMITTED: LOS: 1 day RT Treatment Plan: Protocol Plan: Medications Albuterol/Ipratropium: Discontinued Protocol Plan: Procedures Oxygen/Humidity: O2 to keep SpO2 > 92% Monitoring: Pulse oximetry BID & PRN Additional Comments: Impressions of the patient: confused; cooperative Recommendations to the care team: none Vital Signs: Pulse: Pulse: 115 RR: Respirations: 23 PER MINUTE SpO2: SpO2: 95 % O2 Device: Liter Flow: O2 Liter Flow: 2 lpm O2%: Breath Sounds: Respiratory Effort: * Donna Dempsey RT - 09/02/2018 12:44 PM CDT Patient was placed on a SBT between 0930 and 0945. RT obtain pre-trial parameters with the patient. RT and RN left room where patient was restrained and resting comfortably. RT continued with their rounds. RT was called at 1023 , while they were in another patient's room doing a vent check and breathing treatment, that the patient had self extubated. RT immediately responded and placed the patient on oxygen and assisted the RN in calming the patient down who was visibly shaken. Patient was not re-intubated. * Beatrice Piña RN - 09/02/2018 7:48 AM CDT [id number]: Report received. Bedside safety check complete. Pt intubated and sedated. Pt does not appear to be in pain. Pt on levophed. Assessment complete see ICU flow sheet. 945: Pt placed on ventilator weaning trial. Pt bearing down and frustrated. RN and RT explained to pt to relax because we were working on "getting tube out." Pt nodded ok. Precedex and Fentanyl left at same rate d/t pt anxiety. Restraints checked and in place. 1023: Pt self extubated. Placed on 2L NC. Saturation 93%. VSS. Fentanyl and Precedex stopped. Pt a/o to self and year. Pt stated he had been having hallucinations of demons. Pt reoriented to place and what has occurred since he has come to . Pt states he recognizes my voice but is still feeling anxious. Pt's family now at bedside. Team notified and at bedside. 1300: Malin catheter removed. * Vladimir Mckinney MD - 09/02/2018 7:21 AM CDT General Progress Note Name: Cuco Gilbert Today's Date: 09/02/2018 Admission Date: 09/01/2018 LOS: 1 day Assessment/Plan: Active Problems: CKD (chronic kidney disease) Atrial fibrillation (HCC) Status post liver transplant (HCC) DM (diabetes mellitus) (HCC) Pneumonia Septic shock (HCC) Acute respiratory failure with hypoxia and hypercapnia (HCC) Shock (HCC) Hemoptysis Acute on chronic systolic heart failure (HCC) Supratherapeutic INR Cuco Gilbert is a 73 y.o. male, PMH significant for ESLD s/p OLT, CAD, HTN , HLD, CHF, a fib, DM, CKD who presented to OSH on early 08/31 with c/o cough, hemoptysis. Was febrile upon arrival. With worsening respiratory failure through the course of the day/night, pt required intubation and was transferred to [facility] for further management. Patient requiring pressor for shock. Self- extubated on 09/02 am and oxygenating well on room air. CT chest consistent with multi-focal pneumonia. BAL performed 09/01. Following cultures. Continue antibiotics and pulmonary hygiene. A.fib with RVR, stable BP. NEURO Twitching/shaking movements - Pt experiencing intermittently somewhat rhythmic muscular twitches of UE, most significantly RUE, which family reports is not a chronic symptom - tacro level WNL as below - did experience syncope ~2 weeks ago which was reportedly worked up by fitness club manager without cause determined per family - Family denies pt co any MATOS, dizziness or vision changes prior to intubation - CT head without acute hemorrhage Plan - Monitor neuro status closely Delirium - precedex prn - Delirium precautions PULM Acute hypoxic Respiratory failure, PNA, Hemoptysis - Presented to OSH ED with c/o cough, hemoptysis which was sudden onset Thurs AM between [id number]. - OSH course: - initial ABG 7.27/55/79/25 on ?Comfort flow, 35%, 20L - Repeat ABG 09/01 7.2/66/113/25 - unclear fiO2 - Post intubation - 7.33/52/142/26 - per notes, pt experienced significant worsening of his work of breathing and he was intubated at OSH, placed on MV 500, R 14, p5 - BNP 299 - was reportedly febrile to 102 on arrival - Given abx as below - CXR with R>L consolidation - CT scan c/w bilat GGO/consolidation concerning for PNA, also with some e/o pulm edema/small effusion which is less significant - e/o bloody secretions on suctioning - Bronch with BAL completed, see procedure note for findings Plan - ID as below - Self extubated on am 09/02 - continue to wean oxygen, currently on 2 L nasal cannula CV Shock, Hx HFrEF, CAD, HTN, A fib w/ RVR - Shock ddx likely septic vs cardiogenic, less likely hypovolemia - 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 meds include atorvastatin, lasix, metoprolol, aldactone, asa, lisinopril, warfarin - Started on NE at OSH, able to wean off briefly upon arrival but required again - S/p stress dose steroids at OSH - Trop 0.12->0.09->0.12, BNP 377 - Per family, received multiple bags of IVF - With some 1-2+ edema in extremities - Imaging as above - scvo2 72.5 - Echo with EF 20%, mild , moderately reduced RV fx - Previous echo in 02/2018 with EF 30%, no mention of RV dysfunction, mild aortic stenosis Plan - ID as below - Continue NE, titrate as able (currently 0.01-0.05) - Holding 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 meds with shock, elevated INR - Metoprolol IV 5 mg for HR in the 130's, will repeat prn, add amiodarone gtt if hypotensive with metoprolol GI Hx ESLD s/p OLT 2010 - 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 meds include tacro and cellcept which he has not taken since Tue PM - LFT WNL at OSH, Bili 1.3 Plan - Consult hepatology for recs with immunosuppression - recs continue tacro, hold cellcept - daily tacro levels - goal 3-6 - NPO for now, speech evaluation RENAL CKD - Baseline cr around 2, 2.08 on admit, BUN 49 - Bicarb 23 Plan - Monitor I/O closely - Avoid nephrotoxins, hypotension as able 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 with breakfast/lunch, 14U with dinner plus sliding scale as well as Levemir 36U QAM, 18U Qevening Plan - Continue NPH and SSI for now with close monitoring ID Septic shock, PNA - WBC on admit to OSH 5.5>29 today; febrile to 102 on admit to OSH - Imaging as above - Procal 4.25 - Received cefepime, zosyn and vanc at OSH - UA with 1+ leuk at OSH - Strep penumo/legionella neg - RVP neg - Fungitell 105 Plan - Follow Blood, sputum, urine cx - ngtd - BAL - PJP, aspergillus, hsv, cmv, afb, fungal - in process - Aspergillus - in process - Continue zosyn, vanc, azithromycin - 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, low threshold to add viral coverage if pt decompensates - Fungitell elevated, will order histoplasmosis urine ag HEME Supratherapeutic INR - 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 warfarin - family reports compliance - OSH INR 3.6 > 8.2 - Received unknown amount of vit K PO at OSH - [facility] INR 8.2, TEG WNL though with hemoptysis - given ffp and vit K upon arrival - pts reports pt was started on indomethacin on Tuesday for gout by PCP PLan - Hold warfarin, daily INR - type/cross, consented for blood products if needed MSK Hx Gout - Hold 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 meds for now IVF: na, can NICOM if needed Diet: NPO Prophylaxis Review: Lines: Yes; Arterial Line; Indication: Frequent blood draws and Continuous BP monitoring; Location: Radial Central Line; Indication: Frequent blood draws, Med not deliverable peripherally and Hemodynamic monitoring; Type: PICC Urinary Catheter: No Antibiotic Usage: Vanc/Zosyn/azithromycin Procedures: Bronch VTE: Pharmacological prophylaxis; Contraindication: Bleeding risk; supratherapeutic INR Code Status: Full Code Dispo: Continue ICU admission Pt seen and discussed with Dr. Alex Iniguez M.D. Internal Medicine Resident | PGY2 (Pager) ATTESTATION I have seen, personally fully evaluated, and discussed patient with Dr. Iniguez. I agree with the objective findings and agree with the plan of care as documented by the resident with the exceptions noted. The patient is critically ill with distributive shock, immunosuppression, atrial fibrillation, HFrEF, chronic renal insufficiency, hypoxic respiratory failure, delirium. I spent 85 minutes (excluding time spent performing or supervising any procedures ) providing and personally directing critical care services including physical exam, titration of vasopressors, review of radiographic and labratory data and formulation of a plan of care. Mr. Gilbert remains critically ill. Patient self extubated this morning with signs of increased delirium. Able to manage without reintubation at this time. Continuing to manage for distributive shock as well as A. fib with RVR in the setting of multiple chronic comorbidities including immunosuppression, renal insufficiency and chronic heart failure. Continue with broad-spectrum antimicrobials. Despite multisystem illness, patient is overall trending toward improvement. Continue with aggressive ICU care and monitoring. Guarded prognosis. Patient and family updated at bedside. Staff name: Vladimir Mckinney MD Subjective No acute events overnight. Patient self extubated this morning. Delirious and hallucinating. Denies pain or discomfort. Review of Systems Constitutional: Positive for malaise/fatigue. Negative for fever. HENT: Negative. Eyes: Negative. Respiratory: Positive for shortness of breath. Cardiovascular: Positive for leg swelling. Gastrointestinal: Negative. Genitourinary: Negative. Musculoskeletal: Negative. Skin: Negative. Neurological: Positive for weakness. Psychiatric/Behavioral: Negative. Medications Scheduled Meds: albuterol 0.5% (PROVENTIL; VENTOLIN) nebulizer solution 2.5 mg 2.5 mg Inhalation Q4H & PRN aspirin chewable tablet 81 mg 81 mg Oral QDAY azithromycin (ZITHROMAX) 500 mg in sodium chloride 0.9% (NS) IVPB 500 mg Intravenous Q24H* chlorhexidine gluconate (PERIDEX) 0.12 % solution 15 mL 15 mL SEE ADMIN INSTRUCTIONS BID(-) insulin aspart U-100 (NOVOLOG FLEXPEN) injection PEN 0-14 Units 0-14 Units Subcutaneous 5 X Day insulin NPH (HUMULIN N KwikPen) injection PEN 10 Units 10 Units Subcutaneous BID (07-04) ipratropium bromide (ATROVENT) 0.02 % nebulizer solution 0.5 mg 0.5 mg Inhalation Q4H & PRN pantoprazole (PROTONIX) injection 40 mg 40 mg Intravenous QDAY piperacillin/tazobactam (ZOSYN) 3.375 g/50 mL iso-osmotic IVPB 3.375 g Intravenous Q6H* senna (SENOKOT) oral syrup 8.8 mg 8.8 mg Oral BID tacrolimus (PROGRAF) capsule 0.5 mg 0.5 mg Oral BID vancomycin (VANCOCIN) 1.5 g in dextrose 5% (D5W) IVPB 1.5 g Intravenous Q24H Continuous Infusions: dexmedetomidine (PRECEDEX) 400 mcg in sodium chloride 0.9% (NS) 100 mL IV infusion 0.8 mcg/kg/hr (09/02/18 1978) fentaNYL (SUBLIMAZE) 1000 mcg/ NS 100 mL IV infusion (std conc)(premade) 50 mcg/hr (09/02/18 0550) norepinephrine (LEVOPHED) 4 mg in dextrose 5% (D5W) 250 mL IV drip (std conc ) 0.03 mcg/kg/min (09/02/18 0217) PRN and Respiratory Meds:acetaminophen Q6H PRN, oxyCODONE Q6H PRN, vancomycin, pharmacy to manage Per Pharmacy Prescriptions Prior to Admission Medication Sig Dispense Refill Last Dose allopurinol (ZYLOPRIM) 100 mg tablet Take 100 mg by mouth daily. Taking aspirin 81 mg chewable tablet Chew 1 tablet by mouth daily. Take with food. 90 tablet 3 Taking atorvastatin (LIPITOR) 20 mg tablet Take 10 mg by mouth daily. blood sugar diagnostic (GLUCOSE METER TEST STRIP) test strip Use 1 Strip as directed three times daily. accuchek wild Taking Blood-Glucose Meter kit Accuchek WILD METER 1 Kit 0 Taking Cholecalciferol (Vitamin D3) 1,000 unit PO Cap Take 1 Cap by mouth Twice Daily. 60 Cap 3 Not Taking cyanocobalamin(DIL) (VITAMIN B-12) 100 mcg/mL Inject into the muscle every 30 days. Not had for 8 months Not Taking diclofenac(+) (VOLTAREN) 1 % topical gel Apply 4 g topically to affected area twice daily. Docusate Calcium 50 mg cap Take 100 mg by mouth at bedtime daily. Taking ergocalciferol (VITAMIN D-2) 50,000 unit capsule Take one capsule by mouth every 7 days for 12 doses. 12 capsule 0 fish oil- omega 3-DHA/EPA 300/1,000 mg capsule Take 1 capsule by mouth twice daily. furosemide (LASIX) 20 mg tablet Take 3 tablets by mouth every morning. After having your labs checked, your doctors may increase your dose back to 120 mg by mouth once daily 90 tablet 3 Taking furosemide (LASIX) 40 mg tablet Take 80 mg by mouth every morning. HYDROcodone/acetaminophen (NORCO) 5/325 mg tablet Take 2 tablets by mouth three times daily Not Taking insulin aspart (NOVOLOG) 100 unit/mL flexPEN Inject 9 units with breakfast, 9 units with lunch, and 11 units with dinner. Plus 2 for every 40 >140 Max 80. (Patient taking differently: Inject 13 units with breakfast, 13 units with lunch , and 14 units with dinner. Plus 2 for every 40 >140 Max 80.) 75 mL 3 Taking insulin detemir(+) (LEVEMIR FLEXPEN) 100 unit/mL (3 mL) injection pen 34 U am and 16 U pm plus 2 units to prime pen each time. (Patient taking differently : Inject 36units every morning, then 18 units every evening) 4 box 3 Taking lidocaine 5 % oint topical ointment Apply topically to affected area three times daily. lisinopril (PRINIVIL; ZESTRIL) 5 mg tablet Take 1 tablet by mouth daily. 90 tablet 3 Taking metoprolol XL (TOPROL XL) 100 mg extended release tablet Take 50 mg by mouth daily. metoprolol XL (TOPROL XL) 50 mg extended release tablet Take 1 tablet by mouth daily. 90 tablet 3 med correction metoprolol XL (TOPROL XL) 50 mg extended release tablet Take 1 tablet by mouth daily. 30 tablet 3 Not Taking mycophenolate mofetil (CELLCEPT) 250 mg PO capsule Take 2 Caps by mouth Twice Daily. [address](+) (PRILOSEC) 40 mg capsule Take 40 mg by mouth daily before breakfast. other medication 1 Dose. CHAZ COMFORT get for feet. Taking oxyCODone (ROXICODONE) 5 mg tablet Take 5 mg by mouth every 6 hours as needed Not Taking oxyCODONE (ROXICODONE, OXY-IR) 5 mg tablet Take 1 tablet by mouth daily for pain. 18 tablet 0 Not Taking oxycodone(+) (ROXICODONE, OXY-IR) 10 mg tablet Take 2 tablets by mouth every morning, then 3 tablets every bedtime pregabalin (LYRICA) 150 mg capsule Take 150 mg by mouth twice daily. Taking rOPINIRole (REQUIP) 1 mg tablet Take 1 mg by mouth twice daily. Taking senna/docusate (SENOKOT-S) 8.6/50 mg tablet Take 1 tablet by mouth daily. Taking spironolactone (ALDACTONE) 25 mg tablet Take 25 mg by mouth twice daily. Take with food. tacrolimus (PROGRAF) 0.5 mg capsule Take one capsule by mouth twice daily. 60 capsule 5 Trolamine Salicylate 10 % crea Apply topically to affected area twice daily as needed. ursodiol (RANJIT) 250 mg tablet Take 1 tablet by mouth twice daily with meals. 60 tablet 3 Taking warfarin (COUMADIN) 2.5 mg tablet Take 1 tablet by mouth as directed. Take 2.5 mg by mouth two times weekly on Tuesday & Tuesday. Take in the evening. 90 tablet 3 Taking warfarin (COUMADIN) 5 mg tablet Take 1 tablet by mouth as directed. Take 5 mg by mouth five times weekly on Tuesday, Tuesday, Tuesday, , Tuesday. Take in the evening. 90 tablet 3 Taking Allergies Allergies Allergen Reactions Demerol [Meperidine] HIVES and SWELLING Morphine ANAPHYLAXIS Objective Vital Signs: Last Filed Vital Signs: 24 Hour Range BP: 136/78 (09/01 1700) Temp: 37.4 C (99.3 F) (09/02 0400) Pulse: 89 (09/02 600) Respirations: 16 PER MINUTE (09/02 600) SpO2: 97 % (09/02 600) O2 Delivery: Endotracheal Tube (Oral) (09/02 07) SpO2 Pulse: 88 (09/02 0600) Height: 182.9 cm (72") (09/01 1658) BP: (106-140)/(62-100) ABP: (106-153)/(49-75) Temp: [36.1 C (97 F)-37.4 C (99.4 F)] Pulse: [86-112] Respirations: [14 PER MINUTE-24 PER MINUTE] SpO2: [95 %-100 %] O2 Delivery: Endotracheal Tube (Oral) Vitals: 09/01/18 1326 09/01/18 1400 09/01/18 1658 Weight: 118.4 kg (261 lb 0.4 oz) (S) 115.9 kg (255 lb 8.2 oz) 115.9 kg (255 lb 8.2 oz) Intake/Output Summary: (Last 24 hours) Intake/Output Summary (Last 24 hours) at 09/02/18 0721 Last data filed at 09/02/18 0700 Gross per 24 hour Intake 1686.82 ml Output 1010 ml Net 676.82 ml Ventilator/ Respiratory Support: No Physical Exam Physical Exam Constitutional: He is oriented to person, place, and time and well-developed, well-nourished, and in no distress. No distress. HENT: Head: Normocephalic and atraumatic. Eyes: Pupils are equal, round, and reactive to light. Conjunctivae and EOM are normal. Neck: Normal range of motion. Neck supple. Cardiovascular: Intact distal pulses. An irregularly irregular rhythm present. Tachycardia present. Pulmonary/Chest: Effort normal. Coarse breath sounds while intubated this morning, decreased at bases Abdominal: Soft. Bowel sounds are normal. He exhibits no distension. Musculoskeletal: Normal range of motion. He exhibits edema. Neurological: He is alert and oriented to person, place, and time. Skin: Skin is warm. No rash noted. Psychiatric: Waxing and waning mental status Vitals reviewed. Lab Review 24-hour labs: Results for orders placed or performed during the hospital encounter of (from the past 24 hour(s)) CULTURE-RESP,LOWER W/SENSITIVITY Collection Time: 09/01/18 4:06 PM Result Value Ref Range Battery Name LOWER RESP CULTURE Specimen Description BRONCHIAL ALVEOLAR LAVAGE, RML Special Requests NONE Direct Gram Stain FEW NEUTROPHILS NO ORGANISMS SEEN Culture Culture in progress Report Status RVP VIRAL PANEL PCR Collection Time: 09/01/18 4:06 PM Result Value Ref Range Specimen Source BRONCHIAL ALVEOLAR LAVAGE Adenovirus NOT DETECTED Coronavirus 229E NOT DETECTED Coronavirus HKU1 NOT DETECTED Coronavirus NL63 NOT DETECTED Coronavirus OC43 NOT DETECTED Human Metapneumovirus NOT DETECTED Human Rhinovirus/ENTEROVIRUS NOT DETECTED Influenza A H1N1 2009 NOT DETECTED Influenza A H1 NOT DETECTED Influenza A H3 NOT DETECTED Influenza B NOT DETECTED Parainfluenza 1 NOT DETECTED Parainfluenza 2 NOT DETECTED Parainfluenza 3 NOT DETECTED Parainfluenza 4 NOT DETECTED RSV NOT DETECTED Bordetella Pertussis NOT DETECTED Chlamydophila Pneumoniae NOT DETECTED Mycoplasma Pneumoniae NOT DETECTED CELL COUNT W/DIFF-FLUIDS Collection Time: 09/01/18 4:06 PM Result Value Ref Range White Blood Cells,Fluid 345 /UL Red Blood Cells,Fluid 7,600 /UL Segmented Neutrophils, Fluid 68 % Lymphocytes,Fluid 7 % Monocyte/Histo,Fluid 24 % Eosinophils, Fluid 1 % Fluid Source BRONCHIAL ALVEOLAR LAVAGE Pathology Interpretation,Fluid Pathologist Signature LEUKEMIA/LYMPHOMA PANEL FLUID/TISSUE Collection Time: 09/01/18 4:06 PM Result Value Ref Range Leuk/Lymph Interpretation SEE PATHOLOGY REPORT Specimen/LLM BRONCHIAL ALVEOLAR LAVAGE GRAM STAIN Collection Time: 09/01/18 4:06 PM Result Value Ref Range Battery Name GRAM STAIN Specimen Description BRONCHIAL ALVEOLAR LAVAGE, RML Special Requests NONE Gram Stain FEW NEUTROPHILS NO ORGANISMS SEEN Report Status FINAL 09/01/2018 TROPONIN-I Collection Time: 09/01/18 7:30 PM Result Value Ref Range Troponin-I 0.09 (H) 0.0 - 0.05 NG/ML POC GLUCOSE Collection Time: 09/02/18 12:37 AM Result Value Ref Range Glucose, POC 167 (H) 70 - 100 MG/DL POC GLUCOSE Collection Time: 09/02/18 2:36 AM Result Value Ref Range Glucose, POC 177 (H) 70 - 100 MG/DL TROPONIN-I Collection Time: 09/02/18 2:38 AM Result Value Ref Range Troponin-I 0.12 (H) 0.0 - 0.05 NG/ML CBC AND DIFF Collection Time: 09/02/18 2:38 AM Result Value Ref Range White Blood Cells 12.4 (H) 4.5 - 11.0 K/UL RBC 5.33 4.4 - 5.5 M/UL Hemoglobin 13.0 (L) 13.5 - 16.5 GM/DL Hematocrit 41.6 40 - 50 % MCV 78.1 (L) 80 - 100 FL MCH 24.4 (L) 26 - 34 PG MCHC 31.2 (L) 32.0 - 36.0 G/DL RDW 19.0 (H) 11 - 15 % Platelet Count 217 150 - 400 K/UL MPV 7.4 7 - 11 FL Neutrophils 89 (H) 41 - 77 % Lymphocytes 6 (L) 24 - 44 % Monocytes 4 4 - 12 % Eosinophils 1 0 - 5 % Basophils 0 0 - 2 % Absolute Neutrophil Count 11.00 (H) 1.8 - 7.0 K/UL Absolute Lymph Count 0.70 (L) 1.0 - 4.8 K/UL Absolute Monocyte Count 0.50 0 - 0.80 K/UL Absolute Eosinophil Count 0.10 0 - 0.45 K/UL Absolute Basophil Count 0.00 0 - 0.20 K/UL PROTIME INR (PT) Collection Time: 09/02/18 2:38 AM Result Value Ref Range INR 3.8 (H) 0.8 - 1.2 COMPREHENSIVE METABOLIC PANEL Collection Time: 09/02/18 2:38 AM Result Value Ref Range Sodium 134 (L) 137 - 147 MMOL/L Potassium 4.5 3.5 - 5.1 MMOL/L Chloride 103 98 - 110 MMOL/L Glucose 185 (H) 70 - 100 MG/DL Blood Urea Nitrogen 50 (H) 7 - 25 MG/DL Creatinine 1.77 (H) 0.4 - 1.24 MG/DL Calcium 8.9 8.5 - 10.6 MG/DL Total Protein 5.2 (L) 6.0 - 8.0 G/DL Total Bilirubin 1.2 0.3 - 1.2 MG/DL Albumin 2.9 (L) 3.5 - 5.0 G/DL Alk Phosphatase 52 25 - 110 U/L AST (SGOT) 7 7 - 40 U/L CO2 23 21 - 30 MMOL/L ALT (SGPT) 3 (L) 7 - 56 U/L Anion Gap 8 3 - 12 eGFR Non 38 (L) >60 mL/min eGFR 46 (L) >60 mL/min MAGNESIUM Collection Time: 09/02/18 2:38 AM Result Value Ref Range Magnesium 1.7 1.6 - 2.6 mg/dL PHOSPHORUS Collection Time: 09/02/18 2:38 AM Result Value Ref Range Phosphorus 3.2 2.0 - 4.5 MG/DL BLOOD GASES, ARTERIAL Collection Time: 09/02/18 2:38 AM Result Value Ref Range pH-Arterial 7.30 (L) 7.35 - 7.45 pCO2-Arterial 50 (H) 35 - 45 MMHG pO2-Arterial 151 (H) 80 - 100 MMHG Base Deficit-Arterial 2.3 MMOL/L O2 Sat-Arterial 99.0 95 - 99 % Qcolqaaecsu-EEH-Ipu 22.5 21 - 28 MMOL/L POC GLUCOSE Collection Time: 09/02/18 8:39 AM Result Value Ref Range Glucose, POC 155 (H) 70 - 100 MG/DL TACROLIMUS LEVEL(FK506) Collection Time: 09/02/18 9:09 AM Result Value Ref Range Tacrolimus 4.9 2 - 15 NG/ML POC GLUCOSE Collection Time: 09/02/18 12:57 PM Result Value Ref Range Glucose, POC 137 (H) 70 - 100 MG/DL Point of Care Testing (Last 24 hours) Glucose: (!) 185 (09/02/18 0238) POC Glucose (Download): (!) 177 (09/02/18235) Radiology and other Diagnostics Review: Pertinent radiology reviewed. Vanessa Iniguez MD Internal Medicine PGY2 (Pager) * Jeanne Barrera RN - 09/02/2018 4:30 AM CDT 1930: Report received and care assumed. Bedside safety check complete. Pt intubated and sedated, able to open eyes and follow commands. VS stable. Assessment completed, see doc flowsheets. Will continue to monitor closley. 0215: Pt increasingly restless. Will titrate sedation as pt tolerates and continue to monitor. * Beatrice Piña RN - 09/01/2018 4:48 PM CDT 1320: Pt arrived to unit via EMS. Pt intubated, on levophed. Pt lethargic able to follow commands. VSS per pt trends. BC and labs sent. Assessment complete see ICU flow sheet. Pt at bedside. 1530: Bronchoscopy performed at bedside. 1400: Echo performed at bedside. * Eva Ly PHARMD - 09/01/2018 4:42 PM CDT Pharmacy to Manage Antibiotic Initiation Note Cuco Gilbert is a 73 y.o. male being started on Vancomycin for treatment of Septic Shock. Creatinine Date/Time Value Ref Range Status 09/01/2018 1345 2.08 (H) 0.4 - 1.24 MG/DL Final Estimated CrCl: 41.6 Actual Weight: 115.9 kg (255 lb 8.2 oz) IBW: 77.6 kg Adjusted BW: 92.9 kg Vancomycin Dosing Wt:115.9 kg Plan:. Begin Vancomycin 1.5g IV q24h per day team pharmacist Pharmacy will continue to monitor and adjust therapy as needed. Thank you, Eva Ly, PHARMD 09/01/2018 * Beatrice Piña RN - 09/01/2018 3:02 PM CDT Patient arrived to room # (*6914) via cart accompanied by EMS. Patient transferred to the bed with assistance. Bedside safety checks completed. Initial patient assessment completed, refer to flowsheet for details. Admission skin assessment completed by: Pressure Injury Present on Hospital Admission (within 24 hours): No 1. Occiput: No 2. Ear: No 3. Scapula: No 4. Spinous Process: No 5. Shoulder: No 6. Elbow: No 7. Iliac Crest: No 8. Sacrum/Coccyx: No 9. Ischial Tuberosity: No 10. Trochanter: No 11. Knee: No 12. Malleolus: No 13. Heel: No 14. Toes: No 15. Assessed for device associated injury Yes 16. Nursing Nutrition Assessment Completed Yes See Doc Flowsheet for additional wound details. INTERVENTIONS: Pt turned with foam wedge and barrier cream applied. in this encounter H&P Notes * Je Curran MD - 09/01/2018 9:01 PM CDT MICU STAFF NOTE Staff Admission History and Physical Assessment Cuco Gilbert Admission Date: 09/01/2018 Age: 73 y.o. Summary of History and Physical: Mr. 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 Summary of Assessment/Plan: 1. Acute hypoxemic respiratory faliure 2. Shock likely septic >> cardiogenic 3. Bilateral infiltrates 4. Fevers 5. Supratherapeutic INR 6. Unilateral shaking 7. CKD at baseline Cr 8. HFrEF 9. Afib Plan: 1. Broad spectrum antibiotics and tamiflu until RVP negative 2. Bronchoscopy with BAL to evaluate for infection and r/o DAH 3. TTE 4. NICOM 5. ScVO2 6. Hold MMF 7. Consult Hepatology 8. Head CT to r/o intracranial bleed with elevated INR 9. FFP Review of systems not obtained due to patient factors. General: Sedated on pressors, minimal vent settings Head: Normocephalic, without obvious abnormality, atraumatic Eyes: Conjunctivae/corneas clear. PERRL Throat: Lips, mucosa moist; ETT in place Neck: Supple, symmetrical, trachea midline Lungs: Coarse bilaterally Heart: Irreg Abdomen: Soft, non-tender. Obese. Bowel sounds normal. Extremities: 1+ edema in BLE Peripheral pulses 2+ and symmetric, all extremities Skin: No rashes Neurologic: Sedated. Code Status: Full Code ATTESTATION I have seen, personally fully evaluated, and discussed patient with housestaff team and THERAPY TECH. I agree with the objective findings and agree with the plan of care as documented by the resident with the exceptions noted. The patient is critically ill with problem list above and the issues as noted in the aforementioned assessment and plan. I spent 35 minutes (excluding time spent performing or supervising any procedures) providing and personally directing critical care services including completing slaughter portions of the history and physical exam, reviewing laboratory and radiology studies on site, discussions with family about prognosis related to the patient's critical illness, and management as outlined in the above assessment and plan. Staff name: Je Curran MD Date: 09/01/2018 * Dianelys Alexander, CROZER - 09/01/2018 7:56 AM CDT Critical Care Admission History and Physical Assessment Name: Cuco Gilbert Admission Date: 09/01/2018 Active Problems: CKD (chronic kidney disease) Atrial fibrillation (HCC) Status post liver transplant (HCC) DM (diabetes mellitus) (HCC) Pneumonia Septic shock (HCC) Acute respiratory failure with hypoxia and hypercapnia (HCC) Shock (HCC) Hemoptysis Acute on chronic systolic heart failure (HCC) Supratherapeutic INR Assessment and Plan NEURO Twitching/shaking movements- Sedated with proprofol and precedex on arrival from OSH - When lightened, pt will follow commands and answer yes/no questions - Pt experiencing intermittently somewhat rhythmic muscular twitches of UE, most significantly RUE, which family reports is not a chronic symptom - tacro level WNL as below - did experience syncope ~2weeks ago which was reportedly worked up by fitness club manager without cause determined per family - Family denies pt co any MATOS, dizziness or vision changes prior to intubation Plan - Continue precedex, fentanyl gtts - daily SBT - Monitor neuro status closely - CT head to r/o spontaneous bleed in the setting of supratherapeutic INR - Can consider further w/u pending above with family report of syncopal episode around 2 weeks ago - family states pt had carotid dopplers and echo done at his cardiology office (Dr. Rico) - can f/u with their office tomorrow to obtain records PULM Respiratory failure, PNA, Hemoptysis - Presented to OSH ED with c/o cough, hemoptysis which was sudden onset Thurs AM between [id number]. - OSH course: - initial ABG 7.27/55/79/25 on ?Comfort flow, 35%, 20L - Repeat ABG 09/01 7.2/66/113/25 - unclear fiO2 - Post intubation - 7.33/52/142/26 - per notes, pt experienced significant worsening of his work of breathing and he was intubated at OSH, placed on MV 500, R 14, p5 - BNP 299 - was reportedly febrile to 102 on arrival - Given abx as below - CXR with R>L consolidation - CT scan c/w bilat GGO/consolidation concerning for PNA, also with some e/o pulm edema/small effusion which is less significant - e/o bloody secretions on suctioning - Bronch with BAL completed, see procedure note for findings Plan - Echo as below - ID as below - Continue MV, plan for SBT dialy - Hold on diuresis with shock for now though low threshold if worsening hypoxia CV Shock, Hx HCrEF, CAD, HTN, A fib - Shock ddx likely septic vs cardiogenic, less likely hypovolemia - FIELD 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 meds include atorvastatin, lasix, metoprolol, aldactone, asa, lisinopril, warfarin - Started on NE at OSH, able to wean off briefly upon arrival but required again this evening - Trop 0.12, BNP 377 - Per family, received multiple bags of IVF - With some 1-2+ edema in extremities - Imaging as above - scvo2 72.5 - Echo today with EF 20%, mild , moderately reduced RV fx - Previous echo in 02/2018 with EF 30%, no mention of RV dysfunction, mild aortic stenosis Plan - ID as below - Continue NE, titrate as able (currently 0.01-0.05) - trend trop, repeat EKG if increasing - repeat scvo2 in AM or sooner if e/o worsening shock - Can consider HF consult in the setting of known HFrEF - Holding [employer] 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 meds with shock, elevated INR - Was started on stress dose steroids at OSH, unclear how many doses he williams have received - will hold further dosing for now GI Hx ESLD s/p OLT 2010 - FIELD 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 meds include tacro and cellcept which he has not taken since Tue PM - LFT WNL at OSH, Bili 1.3 Plan - Consult hepatology for recs with immunosuppression - recs continue tacro, hold cellcept - daily tacro levels - goal 3-6 - NPO for now, can add TF if continues to require MV tomorrow RENAL CKD - Baseline cr around 2, 2.08 on admit, BUN 49 - Bicarb 23 Plan - Monitor I/O closely - Avoid nephrotoxins, hypotension as able 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 with breakfast/lunch, 14U with dinner plus sliding scale as well as Levemir 36U QAM, 18U Qevening Plan - Will add NPH and SSI for now with close monitoring, may benefit from insulin gtt pending control of sugars overnight ID Septic shock, PNA - WBC on admit to OSH 5.5>29 today; febrile to 102 on admit to OSH - Imaging as above - Procal 4.25 - Received cefepime, zosyn and vanc at OSH - UA with 1+ leuk at OSH - Strep penumo/legionella neg - RVP neg Plan - Blood, sputum, urine cx - BAL - PJP, aspergillus, hsv, cmv, afb, fungal - in process - Aspergillus, fungitell - in process - Continue zosyn, vanc, azithromycin - 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, low threshold to add viral coverage if pt decompensates overnight HEME 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 - family reports compliance - OSH INR 3.6 > 8.2 - REceived unknown amount of vit K PO at OSH - [facility] INR 8.2, TEG WNL though with hemoptysis - given ffp and vit K upon arrival - pts reports pt was started on indomethacin on Tuesday for gout by PCP PLan - Hold warfarin - FFP and vit k x 3 days as above - type/cross, consented for blood products if needed MSK Hx Gout - 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 I spent 120 minutes providing critical care services including: reviewing outside records and obtaining history from the patient/family members performing a physical examination serially reviewing laboratory, telemetry, hemodynamic, oximetry, and respiratory data reviewing radiographic images reviewing medications managing fluids/electrolytes, antibiotics, ICU prophylaxis, and mechanical ventilation developing the overall plan of care Dianelys Alexander APRN Pulmonary Critical Care Pager: [phone] team pager [phone] Primary Care Physician: Jamie Sanders III CHIEF COMPLAINT: Respiratory failure HISTORY OF PRESENT ILLNESS: Cuco Gilbert is a 73 y.o. male, PMH significant for ESLD s/p OLT, CAD< HTN, HLD, CHF, a fib, DM, CKD who presented to OSH on early 08/31 with c/o cough, hemoptysis. Was febrile upon arrival. With worsening respiratory failure through the course of the day/night, pt required intubation and was transferred to [facility] for further management. Hx obtained through chart review and via family. Pt was reportedly feeling well until he developed cough around 0300 AM which progressed to hemoptysis by 0600, which prompted them to present to ED. No reported fevers, chills, sore throat, runny nose or congestion, MATOS, N/V/D prior to this event. No reports of aspiration or concern for such. No known sick contacts. He was recently started on indomethacin by his PCP but no other new meds. He has otherwise been compliant with all of his home meds, last taking them all on Tue PM. PMH: Past Medical History: Diagnosis Date A-fib (HCC) Arrhythmia 2004 approx PVCs controlled by medication Atrial fibrillation (HCC) 01/31/11 Biliary stent obstruction 03/15/11 Removal of stent with sphincterectomy of anastamosis site CAD (coronary artery disease) CABG x 5 [facility] [place] [place] Cholangitis 03/15/11 CKD (chronic kidney disease) 04/02/10 CMV (cytomegalovirus infection) (HCC) 01/31/11 DM (diabetes mellitus) (HCC) 04/01/10 Esophageal varices (HCC) 2010 With ligation H/O: GI bleed 04/02/10 History of liver transplant (HCC) HTN (hypertension) 1999 Hyperkalemia 04/01/10 Hyperlipidemia 04/01/10 EMERSON (nonalcoholic steatohepatitis) Pancytopenia 04/02/10 Sepsis(995.91) 01/31/11 URI (upper respiratory infection) 03/14/11 PSH: Past Surgical History: Procedure Laterality Date CARDIAC CATHERIZATION 1999 MYOCARDIAL PERFUSION IMG STUDY 1999 HX CORONARY ARTERY BYPASS GRAFT 08/18/2000 CABG x 5 [facility] [place] [place] CARDIOVASCULAR STRESS TEST 2008 DOPPLER ECHOCARDIOGRAPHY 02/2010 [facility] 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 12/03/10 ELECTROCARDIOGRAM ESOPHAGEAL VARICE LIGATION ESOPHAGEAL VARICE LIGATION HX BACK SURGERY L4, L5 HX CATARACT REMOVAL SOCIAL HISTORY: Social History Social History Marital status: Spouse name: N/A Number of children: N/A Years of education: N/A Social History Main Topics Smoking status: Former Smoker Packs/day: 1.00 Years: 40.00 Types: Cigarettes Smokeless tobacco: Never Used Comment: quit in 1999 Alcohol use No Drug use: No Sexual activity: Not on file Other Topics Concern Not on file Social History Narrative No narrative on file FAMILY HISTORY: Family History Problem Relation Age of Onset Cancer Mother Heart Attack Father Coronary Artery Disease Father Sudden Cardiac Father Coronary Artery Disease Sister Diabetes Sister IMMUNIZATIONS: Immunization History Administered Date(s) Administered Flu Vaccine=>6 Months Quadrivalent PF 08/21/2018 Tdap Vaccine 07/02/2010 ALLERGIES: Demerol [meperidine] and Morphine HOME MEDICATIONS: Prescriptions Prior to Admission Medication Sig allopurinol (ZYLOPRIM) 100 mg tablet Take 100 mg by mouth daily. aspirin 81 mg chewable tablet Chew 1 tablet by mouth daily. Take with food. atorvastatin (LIPITOR) 20 mg tablet Take 10 mg by mouth daily. blood sugar diagnostic (GLUCOSE METER TEST STRIP) test strip Use 1 Strip as directed three times daily. accuchek wild Blood-Glucose Meter kit Accuchek WILD METER Cholecalciferol (Vitamin D3) 1,000 unit PO Cap Take 1 Cap by mouth Twice Daily. cyanocobalamin(DIL) (VITAMIN B-12) 100 mcg/mL Inject into the muscle every 30 days. Not had for 8 months diclofenac(+) (VOLTAREN) 1 % topical gel Apply 4 g topically to affected area twice daily. Docusate Calcium 50 mg cap Take 100 mg by mouth at bedtime daily. ergocalciferol (VITAMIN D-2) 50,000 unit capsule Take one capsule by mouth every 7 days for 12 doses. fish oil- omega 3-DHA/EPA 300/1,000 mg capsule Take 1 capsule by mouth twice daily. furosemide (LASIX) 20 mg tablet Take 3 tablets by mouth every morning. After having your labs checked, your doctors may increase your dose back to 120 mg by mouth once daily furosemide (LASIX) 40 mg tablet Take 80 mg by mouth every morning. HYDROcodone/acetaminophen (NORCO) 5/325 mg tablet Take 2 tablets by mouth three times daily insulin aspart (NOVOLOG) 100 unit/mL flexPEN Inject 9 units with breakfast, 9 units with lunch, and 11 units with dinner. Plus 2 for every 40 >140 Max 80. (Patient taking differently: Inject 13 units with breakfast, 13 units with lunch , and 14 units with dinner. Plus 2 for every 40 >140 Max 80.) insulin detemir(+) (LEVEMIR FLEXPEN) 100 unit/mL (3 mL) injection pen 34 U am and 16 U pm plus 2 units to prime pen each time. (Patient taking differently : Inject 36units every morning, then 18 units every evening) lidocaine 5 % oint topical ointment Apply topically to affected area three times daily. lisinopril (PRINIVIL; ZESTRIL) 5 mg tablet Take 1 tablet by mouth daily. metoprolol XL (TOPROL XL) 100 mg extended release tablet Take 50 mg by mouth daily. metoprolol XL (TOPROL XL) 50 mg extended release tablet Take 1 tablet by mouth daily. metoprolol XL (TOPROL XL) 50 mg extended release tablet Take 1 tablet by mouth daily. mycophenolate mofetil (CELLCEPT) 250 mg PO capsule Take 2 Caps by mouth Twice Daily. omeprazole DR(+) (PRILOSEC) 40 mg capsule Take 40 mg by mouth daily before breakfast. other medication 1 Dose. CHAZ COMFORT get for feet. oxyCODone (ROXICODONE) 5 mg tablet Take 5 mg by mouth every 6 hours as needed oxyCODONE (ROXICODONE, OXY-IR) 5 mg tablet Take 1 tablet by mouth daily for pain. oxycodone(+) (ROXICODONE, OXY-IR) 10 mg tablet Take 2 tablets by mouth every morning, then 3 tablets every bedtime pregabalin (LYRICA) 150 mg capsule Take 150 mg by mouth twice daily. rOPINIRole (REQUIP) 1 mg tablet Take 1 mg by mouth twice daily. senna/docusate (SENOKOT-S) 8.6/50 mg tablet Take 1 tablet by mouth daily. spironolactone (ALDACTONE) 25 mg tablet Take 25 mg by mouth twice daily. Take with food. tacrolimus (PROGRAF) 0.5 mg capsule Take one capsule by mouth twice daily. Trolamine Salicylate 10 % crea Apply topically to affected area twice daily as needed. ursodiol (RANJIT) 250 mg tablet [...] Tuesday, , Tuesday. Take in the evening. ROS: Review of systems not obtained due to patient factors. Physical Exam: General appearance: sedated but arousable, no distress Head: Normocephalic, without obvious abnormality Eyes: conjunctivae/corneas clear. PERRL 3+ Mouth/throat: Moist mucous membranes, ett in place Neck: supple, symmetrical, trachea midline Lungs: R sided slightly coarse, diminished bilat bases Heart: irregular rate and rhythm Abdomen: soft, non-tender apperaing. Bowel sounds normal. Extremities: extremities normal, atraumatic, some generalized edema Neurologic: arousable, Some UE muscular twitching R>L, follows commands in extremities Peripheral pulses: 2+ and symmetric Cap Refill: <3 sec Skin: Skin color, texture, turgor normal. No rashes or lesions in exposed areas Artificial Airway Endotracheal Tube Ventilator/Respiratory Therapy Yes: Mode: V/AC+ Set Vt (ml): [460 milliliters] Tidal Volume Spont (mL): [248 milliliters-406 milliliters] Set RR: [14 breaths/minutes] Total Respiratory Rate (Breaths/Min): [16 breaths/minutes] Minute Volume (L/min): [7.27 liters/minutes-7.34 liters/minutes] %MVspon: [0 %] O2%: [40 %] PIP Actual: [21 cm H20-22 cm H20] PEEP/CPAP: [5 cm H2O] Vent Weaning Per protocol Vital Signs: Vital Signs: Last Filed Vital Signs: 24 Hour Range BP: 136/78 (09/01 1700) Temp: 36.7 C (98 F) (09/01 1713) Pulse: 90 (09/01 1900) Respirations: 15 PER MINUTE (09/01 1900) SpO2: 100 % (09/01 1900) O2 Delivery: Endotracheal Tube (Oral) (09/01 1900) SpO2 Pulse: 95 (09/01 1900) Height: 182.9 cm (72") (09/01 1658) BP: (106-140)/(62-100) ABP: (113-153)/(57-75) Temp: [36.1 C (97 F)-36.7 C (98 F)] Pulse: [90-112] Respirations: [15 PER MINUTE-20 PER MINUTE] SpO2: [97 %-100 %] O2 Delivery: Endotracheal Tube (Oral) Vitals: 09/01/18 1326 09/01/18 1400 09/01/181657 Weight: 118.4 kg (261 lb 0.4 oz) (S) 115.9 kg (255 lb 8.2 oz) 115.9 kg (255 lb 8.2 oz) Laboratory: Recent Labs 09/01/18 1345 NA 135* K 4.4 CL 103 CO2 23 GAP 9 BUN 49* CR 2.08* GLU 222* CA 8.9 ALBUMIN 3.0* MG 1.7 PO4 4.5 TSH 0.840 Recent Labs 09/01/18 1345 09/01/18 1930 WBC 20.0* -- HGB 13.4* -- HCT 42.3 -- PLTCT 223 -- INR 8.2* -- AST 7 -- ALT 4* -- ALKPHOS 64 -- TNI 0.12* 0.09* Estimated Creatinine Clearance: 41.6 mL/min (A) (based on SCr of 2.08 mg/dL (H)) . Vitals: 09/01/18 1326 09/01/18 1400 09/01/18 1658 Weight: 118.4 kg (261 lb 0.4 oz) (S) 115.9 kg (255 lb 8.2 oz) 115.9 kg (255 lb 8.2 oz) Recent Labs 09/01/18 1345 09/01/18 1533 PHART 7.28* 7.29* PO2ART 113* 146* Radiology and Other Diagnostic Procedures Review: Reviewed Associated attestation - Je Curran MD - 09/01/2018 9:50 PM CDT Please see my separate H&P with the same date. in this encounter Procedure Notes * Rudolph Peng - 09/01/2018 5:52 PM CDT Procedure: Bronchoscopy Indication: Hemoptysis, infiltrate Consent: The benefits, risks, and alternatives to the procedure were discussed and informed consent was obtained from the patient. Medications: Propofol -- see MAR Procedure: The bronchoscope was passed with ease through ETT; it was extended to the trachea, right bronchial tree, and left bronchial tree. The views were excellent. The patient's toleration of the procedure was excellent. Findings: Grossly normal joe, right and left bronchial tree. No endobronchial lesions. There was bloody secretions bilaterally. BAL of RML was performed with 150 cc fluid instilled and 75 cc return. There was no evidence of DAH. Unplanned Events: There were no unplanned events. Summary: Grossly normal entire bronchial tree with bloody secretions throughout. BAL performed in L x 3, sent for microbiology, cytology, cell count and flow cytometry Associated attestation - Je Curran MD - 09/01/2018 8:57 PM CDT ATTESTATION I was present during the entire procedure performed by a fellow. 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 fraction estimates in recent months, further recommendations regarding medical management and need for further ischemic evaluation ACTIVE HOSPITAL PROBLEM LIST: Active Problems: CKD (chronic kidney disease) Atrial fibrillation (HCC) Status post liver transplant (HCC) DM (diabetes mellitus) (HCC) Pneumonia Septic shock (HCC) Acute respiratory failure with hypoxia and hypercapnia (HCC) Shock (HCC) Hemoptysis Acute on chronic systolic heart failure (HCC) Supratherapeutic INR Atrial fibrillation with rapid ventricular response (HCC) Delirium IMPRESSION: Atrial fibrillation with rapid ventricular response, now rate controlled on metoprolol CHADS-VASc score of 2-3, on warfarin anticoagulation chronically Coronary disease status post prior 5-vessel CABG in 2009 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 Gilbert was admitted with acute hypoxemic respiratory failure and mixed shock from which he is now significantly improved. He continues to have intermittent atrial fibrillation with rapid ventricular response for which he is now being treated with beta adrenergic receptor blockade. He historically has been on metoprolol succinate, though for whatever reason that was discontinued at an unknown time in the past according to his family. This is not completely consistent with [facility] found in his paper chart. In any case, the discrepancy in his ejection fraction assessments is probably in part due to inter-reader variability, as well as differences in modality (transesophageal versus transthoracic). Furthermore in the setting of acute illness with sepsis and rapid ventricular rates, his ejection fraction may have been acutely depressed. Now with improved rate control, his LVEF has improved to approximately 50%, though he does continue to have some right ventricular dysfunction which will need to be monitored moving forward. RECOMMENDATIONS: No strong indication for aspirin in addition to warfarin for secondary prevention; ASA can be discontinued, continue warfarin for stroke prevention in AF Agree with beta adrenergic receptor blockad--recommend increase to metoprolol succinate 100 mg PO daily Continue lisinopril 5 mg PO daily Resume spironolactone at 25 mg PO daily Consider additional diuresis with IV furosemide given markedly elevated CVP on TTE; weight suggest 15-20 lb extra fluid compared to earlier in 2018 Consider addition of a moderate-high intensity statin with atorvastatin 40 mg PO qHS or reduced dose if OK with Hepatology Consider repeat hemoglobin A1c assessment Continuous telemetry while inpatient Serial electrolyte monitoring with replacement to maintain K >4 and Mg >2, respectively Daily standing weights if possible, strict I/O measurements Thank you for the opportunity to participate in the care of this patient. Mr. Gilbert was seen and plan of care discussed with staff fitness club manager, Dr. Mtz. Please call or page with questions. After 5PM please call central supply technician supervisor part time receptionist. Tuesday - Tuesday 8AM-5PM please call Cardiology consult pager. ----- Veronica Carballo MD Fellow, Cardiovascular Diseases Pager: [phone] 09/06/18 | 11:38 AM I personally performed the slaughter portions of the E/M visit, discussed case with the fellow and concur with their documentation of history, physical exam, assessment, and treatment plan unless otherwise noted. A 73-year-old gentleman with history of liver transplantation in 2010, former smoker, coronary artery disease, previous CABG/PCI, persistent atrial fibrillation, dyslipidemia, chronic kidney disease had been transferred from outside hospital with respiratory failure and septic shock. The patient is currently much improved. Cardiology has been called to address the issue of very variable ejection fractions that have been reported on him. He is currently undergoing a bedside echo. Based on the parasternal images done so far, the LV ejection fraction appears to be about 45% (apical views with Definity are pending). I think the variability in the LV ejection fraction has been due to underlying dysrhythmia/uncontrolled rates during echocardiography may be with a component of sepsis related LV dysfunction. Would continue optimizing the cardiac meds including diuresis. Compliance with medications that we prescribe at discharge was emphasized to the patient and family. Mark Mtz MD HPI: Cuco Gilbert is a 73 y.o. male with a significant past medical history as outlined above who was admitted to [facility] following transfer from outside hospital on August 31, 2018 with a history of cough and hemoptysis. He required intubation for acute hypoxic respiratory failure and medical management for predominantly septic shock with a possible cardiogenic component. He has had serial echocardiograms performed at the outside hospital as well as here at [facility] earlier in the year. Cardiology is consulted regarding variable ejection fraction estimates in the context of atrial fibrillation with rapid ventricular response and recommendations for further management. Today reports he is overall feeling much improved since the time of admission. He denies symptoms of chest pain, palpitations, shortness of breath at rest, orthopnea, paroxysmal nocturnal dyspnea, claudication, syncope, near-syncope, neurologic deficits, or any other acute issues. He and his family members who are present in the room, including his , expressed some confusion regarding discrepancies noted between [facility] prescribed medications, including metoprolol succinate and spironolactone, versus what the patient is actually taking at home. Apparently he has not been taking metoprolol at home, though he and his think he has been taking spironolactone. He reports compliance with his other medications, though the accuracy of the statement is somewhat questionable. Past Medical History: Diagnosis Date A-fib ([facility]) Arrhythmia 2004 approx PVCs controlled by medication Atrial fibrillation (HCC) 01/31/11 Biliary stent obstruction 03/15/11 Removal of stent with sphincterectomy of anastamosis site CAD (coronary artery disease) CABG x 5 [facility] [place] [place] Cholangitis 03/15/11 CKD (chronic kidney disease) 04/02/10 CMV (cytomegalovirus infection) (HCC) 01/31/11 DM (diabetes mellitus) (HCC) 04/01/10 Esophageal varices (HCC) 2010 With ligation H/O: GI bleed 04/02/10 History of liver transplant ([facility]) HTN (hypertension) 1999 Hyperkalemia 04/01/10 Hyperlipidemia 04/01/10 [place] (nonalcoholic steatohepatitis) Pancytopenia 04/02/10 Sepsis(995.91) 01/31/11 URI (upper respiratory infection) 03/14/11 Past Surgical History: Procedure Laterality Date CARDIAC CATHERIZATION 1999 MYOCARDIAL PERFUSION IMG STUDY 1999 HX CORONARY ARTERY BYPASS GRAFT 08/18/2000 CABG x 5 [facility] [place] [place] CARDIOVASCULAR STRESS TEST 2007 DOPPLER ECHOCARDIOGRAPHY 02/2010 [facility] 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 12/03/10 ELECTROCARDIOGRAM ESOPHAGEAL VARICE LIGATION ESOPHAGEAL VARICE LIGATION HX BACK SURGERY L4, L5 HX CATARACT REMOVAL Social History Social History Marital status: Spouse name: N/A Number of children: N/A Years of education: N/A Social History Main Topics Smoking status: Former Smoker Packs/day: 1.00 Years: 40.00 Types: Cigarettes Smokeless tobacco: Never Used Comment: quit in 1999 Alcohol use No Drug use: No Sexual activity: Not on file Other Topics Concern Not on file Social History Narrative No narrative on file Family History Problem Relation Age of Onset Cancer Mother Heart Attack Father Coronary Artery Disease Father Sudden Cardiac Father Coronary Artery Disease Sister Diabetes Sister ALLERGIES: Demerol [meperidine] and Morphine CURRENT FACILITY MEDICATIONS: Scheduled Meds: amoxicillin/K clavulanate (AUGMENTIN) tablet 875 mg 875 mg Oral BID w/meals aspirin chewable tablet 81 mg 81 mg Oral QDAY furosemide (LASIX) tablet 80 mg 80 mg Oral QDAY insulin aspart U-100 (NOVOLOG FLEXPEN) injection PEN 0-14 Units 0-14 Units Subcutaneous 5 X Day insulin NPH (HUMULIN N KwikPen) injection PEN 10 Units 10 Units Subcutaneous BID (8-) lidocaine (LIDODERM) 5 % topical patch 1 patch 1 patch Topical QDAY lisinopril (PRINIVIL; ZESTRIL) tablet 5 mg 5 mg Oral QDAY melatonin tablet 5 mg 5 mg Oral QHS metoprolol tartrate (LOPRESSOR) tablet 37.5 mg 37.5 mg Oral BID pantoprazole (PROTONIX) injection 40 mg 40 mg Intravenous QDAY pregabalin (LYRICA) capsule 75 mg 75 mg Oral BID senna (SENOKOT) oral syrup 8.8 mg 8.8 mg Oral BID tacrolimus (PROGRAF) capsule 0.5 mg 0.5 mg Oral BID warfarin (COUMADIN) tablet 4 mg 4 mg Oral QHS Continuous Infusions: PRN and Respiratory Meds:acetaminophen Q6H PRN, amitriptyline/gabapentin/emu oil (#) Q8H PRN, loperamide PRN, magnesium sulfate PRN AND Magnesium PRN AND* * Notify Physician Ongoing, oxyCODONE Q6H PRN, potassium chloride SR PRN OR potassium chloride PRN, simethicone Q6H PRN, traZODone QHS PRN, warfarin, pharmacy to manage Per Pharmacy REVIEW OF SYSTEMS: A 10-point review of systems was negative except for those items noted in the HPI. Vital Signs: Last Filed in 24 hours Vital Signs: 24 hour Range BP: 157/79 (09/06 800) Temp: 36.4 C (97.6 F) (09/06 800) Pulse: 121 (09/06 900) Respirations: 21 PER MINUTE (09/06 900) SpO2: 95 % (09/06 900) O2 Delivery: None (Room Air) (09/06 0400) SpO2 Pulse: 92 (09/06 900) BP: (123-160)/(77-83) Temp: [36.1 C (97 F)-37.2 C (99 F)] Pulse: [102-139] Respirations: [13 PER MINUTE-28 PER MINUTE] SpO2: [91 %-97 %] O2 Delivery: None (Room Air) INTAKE/OUTPUT SUMMARY (Last 24 hours): Intake/Output Summary (Last 24 hours) at 09/06/18 1138 Last data filed at 09/06/18 0900 Gross per 24 hour Intake 942 ml Output 1820 ml Net -878 ml PHYSICAL EXAMINATION: General: Alert, cooperative, no distress, appears stated age Head: Normocephalic, atraumatic Eyes: Conjunctivae/corneas clear, EOM intact Throat: Mucous membranes moist Neck: Supple, symmetric, trachea midline, no carotid bruit, JVD could not be assessed secondary to habitus Back: Symmetric, no abnormal curvature, normal ROM Lungs: Clear to auscultation bilaterally, no crackles/wheezes/rhonchi Chest wall: No significant tenderness or deformity Heart: iregular rate and rhythm, normal S1/S2, no murmur/rub/gallop Abdomen: Soft, non-tender, distended, normal bowel sounds, no palpable masses Extremities: Warm & well-perfused, bilateral pitting edema to the waist POC TESTING (Last 24 hours): Glucose: (!) 145 (09/06/18 0350) POC Glucose (Download): (!) 188 (09/06/18 5235) CARDIOGRAPHICS: EC: AF with controlled VR, 90 bpm range, RAD CHEST X-RAY 09/01/18: IMPRESSION 1. Enlarged cardiac silhouette with vascular congestion and interstitial opacities, suggesting pulmonary edema. 2. Bilateral pleural effusions, larger on the right. LAST ECHOCARDIOGRAM 09/06/18: Interpretation Summary Rest Echo: 1. Borderline left ventricular systolic function with an EF ~ 50% 2. No regional wall motion abnormalities. 3. Aortic valve is significantly sclerotic and appears stenotic but no doppler measurements were made 4. Nicole thickening with annular calcification 5. Mildly increased LV wall thickness 6. Normal aortic root dimension 7. No pericardial effusion 8. Normal ventricular chamber dimensions 9. Left and right atrial enlargement LAST STRESS TEST RESULT 03/2010: SUMMARY/OPINION: This study is borderline abnormal and demonstrates a small area of apical and apical lateral fixed decreased tracer uptake of mild intensity, suggestive of probably apical thinning versus limited area of injury. No significant ischemia is noted. Overall left ventricular size and systolic function is normal. No high risk adverse prognostic indicators are present. LAST CARDIAC CATHETERIZATION: No prior study available for review at this time. LAB/OTHER DIAGNOSTIC TESTIN-hour labs: Results for orders placed or performed during the hospital encounter of (from the past 24 hour(s)) POC GLUCOSE Collection Time: 09/05/18 11:53 AM Result Value Ref Range Glucose, POC 160 (H) 70 - 100 MG/DL POC GLUCOSE Collection Time: 09/05/18 3:59 PM Result Value Ref Range Glucose, POC 145 (H) 70 - 100 MG/DL POC GLUCOSE Collection Time: 09/05/18 9:25 PM Result Value Ref Range Glucose, POC 196 (H) 70 - 100 MG/DL CBC AND DIFF Collection Time: 09/06/18 3:50 AM Result Value Ref Range White Blood Cells 8.4 4.5 - 11.0 K/UL RBC 4.51 4.4 - 5.5 M/UL Hemoglobin 11.3 (L) 13.5 - 16.5 GM/DL Hematocrit 34.7 (L) 40 - 50 % MCV 76.8 (L) 80 - 100 FL MCH 25.0 (L) 26 - 34 PG MCHC 32.5 32.0 - 36.0 G/DL RDW 18.0 (H) 11 - 15 % Platelet Count 184 150 - 400 K/UL MPV 7.5 7 - 11 FL Neutrophils 81 (H) 41 - 77 % Lymphocytes 9 (L) 24 - 44 % Monocytes 7 4 - 12 % Eosinophils 2 0 - 5 % Basophils 1 0 - 2 % Absolute Neutrophil Count 6.90 1.8 - 7.0 K/UL Absolute Lymph Count 0.70 (L) 1.0 - 4.8 K/UL Absolute Monocyte Count 0.60 0 - 0.80 K/UL Absolute Eosinophil Count 0.10 0 - 0.45 K/UL Absolute Basophil Count 0.00 0 - 0.20 K/UL PROTIME INR (PT) Collection Time: 09/06/18 3:50 AM Result Value Ref Range INR 1.4 (H) 0.8 - 1.2 COMPREHENSIVE METABOLIC PANEL Collection Time: 09/06/18 3:50 AM Result Value Ref Range Sodium 139 137 - 147 MMOL/L Potassium 3.7 3.5 - 5.1 MMOL/L Chloride 103 98 - 110 MMOL/L Glucose 145 (H) 70 - 100 MG/DL Blood Urea Nitrogen 32 (H) 7 - 25 MG/DL Creatinine 1.49 (H) 0.4 - 1.24 MG/DL Calcium 9.2 8.5 - 10.6 MG/DL Total Protein 5.5 (L) 6.0 - 8.0 G/DL Total Bilirubin 0.9 0.3 - 1.2 MG/DL Albumin 3.1 (L) 3.5 - 5.0 G/DL Alk Phosphatase 55 25 - 110 U/L AST (SGOT) 9 7 - 40 U/L CO2 29 21 - 30 MMOL/L ALT (SGPT) 5 (L) 7 - 56 U/L Anion Gap 7 3 - 12 eGFR Non 46 (L) >60 mL/min eGFR 56 (L) >60 mL/min MAGNESIUM Collection Time: 09/06/18 3:50 AM Result Value Ref Range Magnesium 1.6 1.6 - 2.6 mg/dL PHOSPHORUS Collection Time: 09/06/18 3:50 AM Result Value Ref Range Phosphorus 2.9 2.0 - 4.5 MG/DL POC GLUCOSE Collection Time: 09/06/18 3:52 AM Result Value Ref Range Glucose, POC 146 (H) 70 - 100 MG/DL POC GLUCOSE Collection Time: 09/06/18 9:15 AM Result Value Ref Range Glucose, POC 188 (H) 70 - 100 MG/DL OTHER RADIOLOGY/DIAGNOSTICS: Pertinent radiology reviewed. * Adela Benoit RN - 09/04/2018 2:12 PM CDT Associated Order(s): CONSULT WOUND/OSTOMY TEAM NURSE Wound Ostomy Note NAME:Cuco Gilbert :1945 AGE: 73 y.o. ADMISSION DATE: 09/01/2018 DAYS ADMITTED: LOS: 3 days Reason for Consult/Visit: wound not pressure Assessment/Plan: Active Problems: CKD (chronic kidney disease) Atrial fibrillation (HCC) Status post liver transplant (HCC) DM (diabetes mellitus) (HCC) Pneumonia Septic shock (HCC) Acute respiratory failure with hypoxia and hypercapnia (HCC) Shock (HCC) Hemoptysis Acute on chronic systolic heart failure (HCC) Supratherapeutic INR Atrial fibrillation with rapid ventricular response (HCC) Delirium Wounds (NOT for Pressure Injuries) 09/01/18 1327 Left Arm Skin Tear (Active) 09/01/18 1327 Arm Wound Orientation: Left Wound Type: Skin Tear Wound Type:: Wound Description (Comments): Agree With My Assessment? Yes 09/04/2018 12:00 PM Wound Base Assessment Moist;[place] 09/04/2018 2:00 PM Surrounding Skin Assessment Intact;Dry 09/04/2018 2:00 PM Wound Site Closure Wound Adhesive Bandage 09/04/2018 2:00 PM Wound Drainage Amount Scant 09/04/2018 2:00 PM Wound Drainage Description Serosanguineous 09/04/2018 2:00 PM Wound Dressing Status Intact 09/04/2018 2:00 PM Wound Dressing and / or Treatment Foam (Biatain) 09/04/2018 2:00 PM Wound Length (cm) 6 cm 09/04/2018 2:00 PM Wound Width (cm) 4 cm 09/04/2018 2:00 PM Wound Depth (cm) 0.1 cm 09/04/2018 2:00 PM Wound Volume (cm^3) 2.4 cm^3 09/04/2018 2:00 PM Number of days: 3 Patient seen today for left forearm skin tear. Wound base is minimally moist with pink tissue, overall wound is superficial. RECOMMEND: Clean wound with normal saline and gauze, Cut Restore Silver Contact layer to fit size of wound and apply to wound base, Cover with Biatain foam with silicone adhesive border, Change dressing every 72 hours Restore Silver Contact layer has been ordered from [employer] as product is not available on unit supply cart. Our service will sign off at this time. Thank you. Adela Benoit RN, BSN, CMSRN Wound/Ostomy Team Pager: [phone] After Hours Wound/OstomyTeam Pager: [phone] * Bailey Glasgow - 09/02/2018 9:16 AM CDT Associated Order(s): CONSULT DIETITIAN CLINICAL NUTRITION Clinical Nutrition Assessment Summary NAME:Cuco Gilbert :1945 AGE: 73 y.o. ADMISSION DATE: 09/01/2018 DAYS ADMITTED: LOS: 1 day Nutrition Assessment of Patient: BMI Categories Adult: Obesity Class I: 30-34.9 (BMI 34.65) Current Oral Intake: NPO Estimated Calorie Needs: 3905-8809 ("11-14 kcal/kg actual body weight of 115.9kg. 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 RD consulted for tube feeding recommendations. Patient intubated since admission. Patient wt at 02/2018 admission was 238#, now with current weight of 255#. Precedex, fentanyl zosyn, vanco on board, levophed weened off afternoon, restarted early this AM 0217. Na: 134; BUN 50; Creat 1.77; Alb 2.9; Phos 3.2; K+ 4.5. 24hr FSBS of 167-218mg/dl. MCV low this admission. Iron, % sat and ferritin low, with elevated TIBC. Spoke with RN, reports plan for weening trial this AM, output via OGT tube of 150 ml. Recommendation: Recommend Peptamen VHP starting at 20 ml/hr advancing by 20 ml q6hrs to goal rate of 55 ml/hr + 2 prosource protein packets per day. This will provide 1440 kcal, 151g protein and 1108 ml free fluids. Additional fluids per primary team or 100 ml water flush q6hrs. Please provide minimum of 30 ml water flush before and after each prosource packet. If patient is extubated, recommend Peptamen VHP at goal rate of 70 ml/hr. This will provide 1680 kcal, 152g protein and 1411ml free fluids. If patient is extubated and PO diet desired, recommend goal of Low-sodium vs. Cardiac diet with textures per FILM PAINTER. Intervention / Plan: Provided EN recommendaitons Monitor weight, labs, meds, GI symptoms, Monitor EN initiation, tolerance/provision. Nutrition Diagnosis: Altered GI function Etiology: intubation/sedation Signs & Symptoms: NPO with need for EN feeds Goals: Initiate nutrition Time Frame: Within 48 Hours Brinda Glasgow MS, RD, LD - Weekend Dietitian Phone: [phone] | Pager: [phone]* * Nabil Prater MD - 09/01/2018 3:11 PM CDT Associated Order(s): CONSULT HEPATOLOGY PHYSICIAN General Consult Note Admission Date: 09/01/2018 LOS: 0 days Reason for Consult: IS management in OLT pt now presenting with septic shock. 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 -Hx of Ischemic bilioapathy with last ERCP in September 2012. On Ursodiol therapy. No reports of cholangitis since then. -On Ursodiol 300mg qd --Intrinsic Liver Function at baseline for patient. Additionally, no clinical evidence of jaundice, or encephalopathy. Trace ascites on US #Immunosuppressive medications: -Patient was on CellCept 500 mg twice daily and tacrolimus 1 mg twice daily, then recently was told to go down to 0.5 twice daily -Trough tacrolimus goal 35, preferably towards the lower side given his CKD. Most recent tacrolimus trough level was 6.2 on 08/21/2018 #Septic shock: --Most likely 2/2 pneumonia per ICU team. -Intubated, on MV support -On broad-spectrum antibiotics with vancomycin, Zosyn and azithromycin -On pressors with norepinephrine Recommendations: -Continue FIELD 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 tacrolimus dose 0.5 mg twice daily, and hold CellCept -Please repeat tacrolimus trough level in a.m. our goal is 35 -Agree with blood cultures, and infectious workup. Agree with broad-spectrum antibiotics -Patient with focal tremor in the right side. INR is high. ICU team to be aware of this, and make sure it is not focal partial seizure -Continue to monitor CBC and CMP daily. Also INR -Pressors, ventilator management, and antibiotics per ICU team -Please call to pathology if any questions or concerns. Patient will be discussed with Dr. Vallejo in a.m. Nabil Prater MD Gastroenterology and hepatology fellow Pager: [phone] History of Present Illness: Cuco Gilbert is a 73 y.o. 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 Hepatology team was consulted for management of immunosuppressive medications Patient was admitted here this year for similar problem in 02/2018, and was found to have respiratory failure 2/2 pneumonia, septic shock, and A. fib with RVR. Patient did fairly well afterwards, and recently seen by Dr. Phillips 08/21 in his clinic without major changes. 2 days ago patient woke up at 3 AM with hemoptysis, and was having shortness breath, so he went to [facility] where he was in hypoxic respiratory failure, and ended up intubated and sent here to for further management. Patient was also in A. fib with RVR , and he was given verapamil at the OSH. His INR was 3.6 on initial admission to [facility], and 8.2 most recently. Per family patient continued to take his immunosuppressive medications FIELD 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 doses, but he was called by our team yesterday and asked to decrease that tacrolimus to 0.5 mg twice daily. He did not receive his I-S medications yesterday or today. Labs here 09/01 showed hemoglobin 13.4, platelet 223, WBC 20, INR 8.2, creatinine 2.08, normal liver chemistry. Past Medical History: Diagnosis Date A-fib (HCC) Arrhythmia 2004 approx PVCs controlled by medication Atrial fibrillation (HCC) 01/31/11 Biliary stent obstruction 03/15/11 Removal of stent with sphincterectomy of anastamosis site CAD (coronary artery disease) CABG x 5 [facility] [place] [place] Cholangitis 03/15/11 CKD (chronic kidney disease) 04/02/10 CMV (cytomegalovirus infection) (HCC) 01/31/11 DM (diabetes mellitus) (HCC) 04/01/10 Esophageal varices ([facility]) 2010 With ligation H/O: GI bleed 04/02/10 History of liver transplant (HCC) HTN (hypertension) 1999 Hyperkalemia 04/01/10 Hyperlipidemia 04/01/10 EMERSON (nonalcoholic steatohepatitis) Pancytopenia 04/02/10 Sepsis(995.91) 01/31/11 URI (upper respiratory infection) 03/14/11 Past Surgical History: Procedure Laterality Date CARDIAC CATHERIZATION 1999 MYOCARDIAL PERFUSION IMG STUDY 1999 HX CORONARY ARTERY BYPASS GRAFT 08/18/2000 CABG x 5 [facility] [place] [place] CARDIOVASCULAR STRESS TEST 2007 DOPPLER ECHOCARDIOGRAPHY 02/2010 [facility] 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 12/03/10 ELECTROCARDIOGRAM ESOPHAGEAL VARICE LIGATION ESOPHAGEAL VARICE LIGATION HX BACK SURGERY L4, L5 HX CATARACT REMOVAL Social History Social History Marital status: Spouse name: N/A Number of children: N/A Years of education: N/A Social History Main Topics Smoking status: Former Smoker Packs/day: 1.00 Years: 40.00 Types: Cigarettes Smokeless tobacco: Never Used Comment: quit in 1999 Alcohol use No Drug use: No Sexual activity: Not on file Other Topics Concern Not on file Social History Narrative No narrative on file Family history reviewed; non-contributory Allergies: Demerol [meperidine] and Morphine Scheduled Meds: albuterol 0.5% (PROVENTIL; VENTOLIN) nebulizer solution 2.5 mg 2.5 mg Inhalation Q4H & PRN aspirin chewable tablet 81 mg 81 mg Oral QDAY azithromycin (ZITHROMAX) 500 mg in sodium chloride 0.9% (NS) IVPB 500 mg Intravenous Q24H* chlorhexidine gluconate (PERIDEX) 0.12 % solution 15 mL 15 mL SEE ADMIN INSTRUCTIONS BID(8-20) ipratropium bromide (ATROVENT) 0.02 % nebulizer solution 0.5 mg 0.5 mg Inhalation Q4H & PRN pantoprazole DR (PROTONIX) tablet 40 mg 40 mg Oral QDAY(21) phytonadione (VITAMIN K) injection 10 mg 10 mg Subcutaneous ONCE piperacillin/tazobactam (ZOSYN) 3.375 g/50 mL iso-osmotic IVPB 3.375 g Intravenous Q6H* senna/docusate (SENOKOT-S) tablet 1 tablet 1 tablet Oral QDAY tacrolimus (PROGRAF) capsule 0.5 mg 0.5 mg Oral BID vancomycin (VANCOCIN) 1.5 g in dextrose 5% (D5W) IVPB 1.5 g Intravenous Q24H Continuous Infusions: dexmedetomidine (PRECEDEX) 400 mcg in sodium chloride 0.9% (NS) 100 mL IV infusion 0.8 mcg/kg/hr (09/01/18 1444) fentaNYL (SUBLIMAZE) 1000 mcg/ NS 100 mL IV infusion (std conc)(premade) 35 mcg/hr (09/01/18 1413) norepinephrine (LEVOPHED) 4 mg in dextrose 5% (D5W) 250 mL IV drip (std conc ) 0.05 mcg/kg/min (09/01/18 1444) PROPOFOL 10 MG/ML IV EMUL (Cabinet Override) Stopped (09/01/18 1409) PRN and Respiratory Meds:acetaminophen Q6H PRN, oxyCODONE Q6H PRN, vancomycin, pharmacy to manage Per Pharmacy Review of Systems: Review of systems not obtained from patient due to patient factors. Vital Signs: Last Filed in 24 hours Vital Signs: 24 hour Range BP: 140/77 (09/01 1500) Temp: 36.5 C (97.7 F) (09/01 1326) Pulse: 97 (09/01 1500) SpO2: 99 % (09/01 1500) O2 Delivery: Endotracheal Tube (Oral) (09/01 1326) SpO2 Pulse: 93 (09/01 1500) Height: 182.9 cm (72.01") (09/01 1400) BP: (123-140)/(77-100) ABP: (113-141)/(57-69) Temp: [36.5 C (97.7 F)] Pulse: [96-104] SpO2: [98 %-100 %] O2 Delivery: Endotracheal Tube (Oral) Physical Exam: General: in acute distress intubated. Head: Normocephalic, without obvious abnormality, atraumatic Throat: Lips, mucosa and tongue normal. Lungs: Clear to auscultation bilaterally Chest wall: No tenderness or deformity. Heart: Regular rate and rhythm Abdomen: soft, non distended. Non tender, BS+ Extremities: ++ edema Skin: Skin color, texture, turgor normal. No rashes or lesions Neurologic: cant assess. Focal tremor in the right arm Lab/Radiology/Other Diagnostic Tests: 24-hour labs: Results for orders placed or performed during the hospital encounter of (from the past 24 hour(s)) URINALYSIS DIPSTICK REFLEX TO CULTURE Collection Time: 09/01/18 1:35 PM Result Value Ref Range Color,UA YELLOW Turbidity,UA CLEAR CLEAR-CLEAR Specific [place]-Urine 1.019 1.003 - 1.035 pH,UA 5.0 5.0 - 8.0 Protein,UA NEG NEG-NEG Glucose,UA NEG NEG-NEG Ketones,UA NEG NEG-NEG Bilirubin,UA NEG NEG-NEG Blood,UA 2+ (A) NEG-NEG Urobilinogen,UA NORMAL NORM-NORMAL Nitrite,UA NEG NEG-NEG Leukocytes,UA TRACE (A) NEG-NEG Urine Ascorbic Acid, UA NEG NEG-NEG URINALYSIS MICROSCOPIC REFLEX TO CULTURE Collection Time: 09/01/18 1:35 PM Result Value Ref Range WBCs,UA 10-20 0 - 2 /HPF RBCs,UA PACKED 0 - 3 /HPF Comment,UA Urine submitted for reflex culture if criteria are met:WBC>10, positive nitrite and/or >=1+ leukocyte esterase. If quantity is not sufficient, an addendum will follow. MucousUA TRACE Bacteria,UA FEW (A) NEG-NEG Squamous Epithelial Cells 0-2 0 - 5 CBC AND DIFF Collection Time: 09/01/18 1:45 PM Result Value Ref Range White Blood Cells 20.0 (H) 4.5 - 11.0 K/UL RBC 5.48 4.4 - 5.5 M/UL Hemoglobin 13.4 (L) 13.5 - 16.5 GM/DL Hematocrit 42.3 40 - 50 % MCV 77.1 (L) 80 - 100 FL MCH 24.4 (L) 26 - 34 PG MCHC 31.6 (L) 32.0 - 36.0 G/DL RDW 18.9 (H) 11 - 15 % Platelet Count 223 150 - 400 K/UL MPV 7.7 7 - 11 FL Neutrophils 95 (H) 41 - 77 % Lymphocytes 2 (L) 24 - 44 % Monocytes 3 (L) 4 - 12 % Eosinophils 0 0 - 5 % Basophils 0 0 - 2 % Absolute Neutrophil Count 18.90 (H) 1.8 - 7.0 K/UL Absolute Lymph Count 0.40 (L) 1.0 - 4.8 K/UL Absolute Monocyte Count 0.60 0 - 0.80 K/UL Absolute Eosinophil Count 0.00 0 - 0.45 K/UL Absolute Basophil Count 0.00 0 - 0.20 K/UL PROTIME INR (PT) Collection Time: 09/01/18 1:45 PM Result Value Ref Range INR 8.2 (HH) 0.8 - 1.2 BLOOD GASES, ARTERIAL Collection Time: 09/01/18 1:45 PM Result Value Ref Range pH-Arterial 7.28 (L) 7.35 - 7.45 pCO2-Arterial 50 (H) 35 - 45 MMHG pO2-Arterial 113 (H) 80 - 100 MMHG Base Deficit-Arterial 3.8 MMOL/L O2 Sat-Arterial 98.0 95 - 99 % Dfnakacxzzy-AWS-Bjr 21.3 21 - 28 MMOL/L LACTIC ACID (BG - RAPID LACTATE) Collection Time: 09/01/18 1:45 PM Result Value Ref Range Lactic Acid,BG 1.8 0.5 - 2.0 MMOL/L IONIZED CALCIUM Collection Time: 09/01/18 1:45 PM Result Value Ref Range Ionized Calcium 1.26 1.0 - 1.3 MMOL/L BNP (B-TYPE NATRIURETIC PEPTI) Collection Time: 09/01/18 1:45 PM Result Value Ref Range B Type Natriuretic Peptide 377.0 (H) 0 - 100 PG/ML FIBRINOGEN Collection Time: 09/01/18 1:45 PM Result Value Ref Range Fibrinogen 481 (H) 200 - 400 MG/DL TYPE & CROSSMATCH Collection Time: 09/01/18 1:45 PM Result Value Ref Range Units Ordered 0 Crossmatch Expires 09/04/2018 Record Check FOUND ABO/RH(D) A POS Antibody Screen NEG Electronic Crossmatch YES COMPREHENSIVE METABOLIC PANEL Collection Time: 09/01/18 1:45 PM Result Value Ref Range Sodium 135 (L) 137 - 147 MMOL/L Potassium 4.4 3.5 - 5.1 MMOL/L Chloride 103 98 - 110 MMOL/L Glucose 222 (H) 70 - 100 MG/DL Blood Urea Nitrogen 49 (H) 7 - 25 MG/DL Creatinine 2.08 (H) 0.4 - 1.24 MG/DL Calcium 8.9 8.5 - 10.6 MG/DL Total Protein 5.5 (L) 6.0 - 8.0 G/DL Total Bilirubin 1.1 0.3 - 1.2 MG/DL Albumin 3.0 (L) 3.5 - 5.0 G/DL Alk Phosphatase 64 25 - 110 U/L AST (SGOT) 7 7 - 40 U/L CO2 23 21 - 30 MMOL/L ALT (SGPT) 4 (L) 7 - 56 U/L Anion Gap 9 3 - 12 eGFR Non 31 (L) >60 mL/min eGFR 38 (L) >60 mL/min LDH-LACTATE DEHYDROGENASE Collection Time: 09/01/18 1:45 PM Result Value Ref Range Lactate Dehydrogenase 194 100 - 210 U/L MAGNESIUM Collection Time: 09/01/18 1:45 PM Result Value Ref Range Magnesium 1.7 1.6 - 2.6 mg/dL PHOSPHORUS Collection Time: 09/01/18 1:45 PM Result Value Ref Range Phosphorus 4.5 2.0 - 4.5 MG/DL TROPONIN-I Collection Time: 09/01/18 1:45 PM Result Value Ref Range Troponin-I 0.12 (H) 0.0 - 0.05 NG/ML TSH WITH FREE T4 REFLEX Collection Time: 09/01/18 1:45 PM Result Value Ref Range TSH 0.840 0.35 - 5.00 MCU/ML VANCOMYCIN RANDOM Collection Time: 09/01/18 1:45 PM Result Value Ref Range Vancomycin Random 8.4 MCG/ML POC GLUCOSE Collection Time: 09/01/18 1:48 PM Result Value Ref Range Glucose, POC 218 (H) 70 - 100 MG/DL BLOOD GASES, CENTRAL VENOUS Collection Time: 09/01/18 2:35 PM Result Value Ref Range PH-Central Venous 7.25 (L) 7.30 - 7.40 PCO2-Central Venous 59 >40 MMHG PO2-Central Venous 43 40 - 50 MMHG Base Deficit-Central Venous 3.0 MMOL/L O2 Sat (Calc)-Central Venous 72.5 65 - 75 % Bicarb-Central Venous 21.4 MMOL/L PREPARE PLASMA (FFP) Collection Time: 09/01/18 3:14 PM Result Value Ref Range Units Ordered 1 Unit Number [id number] Blood Component Type APHERESIS PLASMA THAWED Unit Division 0 Status OF Unit ISSUED Transfusion Status OK TO TRANSFUSE Pertinent radiology reviewed. Nabil Prater MD Pager Associated attestation - Gabrielle Vallejo MD - 09/03/2018 1:08 PM CDT ATTESTATION I personally performed the slaughter portions of the E/M visit, discussed case with resident and concur with resident documentation of history, physical exam, assessment, and treatment plan unless otherwise noted. STAFF IMPRESSION AND PLAN: Given another hospitalization for respiratory failure and presumed pneumonia, we recommend stopping the MMF. There is no obvious indication for dual immunosuppression in his case. Goal prograf level 3 -5. Remainder of plan as outlined in fellow note from today. Staff name: Gabrielle Vallejo MD Date: 09/02/2018 in this encounter Miscellaneous Notes * Case Mgmt DC Plan - Sol Simmons RN - 09/06/2018 8:37 AM CDT Case Management Progress NoteNAME:Cuco Gilbert :1945 AGE: 73 y.o. ADMISSION DATE: 09/01/2018 DAYS ADMITTED: LOS: 5 days Todays Date: 09/06/2018 Plan: Discharge home with home health when medically stable Referral faxed to [facility] [phone]. Spoke with Janny and they can accept patient, with start of TuesdaySep 10. Faxed order to [employer] for dressing supplies: gauze sponges, NACL , 3 4x4 Biatain foam with Silicone borders, 2 Restore Silver Contact Layer , to be delivered to patient's room. Notified bedside RN and asked that the dressing be changed tomorrow prior to discharge. Interventions ? Support ? Info or Referral ? Discharge Planning ? Medication Needs ? Financial ? Legal ? Other Disposition ? Expected Discharge Date Expected Discharge Date: 09/07/18 ? Transportation Does the patient need discharge transport arranged?: No Transportation Name, Phone and Availability #1: Ida- Spouse [phone] Does the patient use Medicaid Transportation?: No ? Next Level of Care (Acute Psych discharges only) ? Discharge Disposition Durable Medical Equipment No service has been selected for the patient. [facility] Destination No service has been selected for the patient. Home Care No service has been selected for the patient. Dialysis/Infusion No service has been selected for the patient. Sol Simmons RN, BSN Nurse Plastics Factory Worker [phone] or [phone] * Case Mgmt DC Plan - Benedict Storey - 09/05/2018 3:06 PM CDT Case Management Progress NoteNAME:Cuco Gilbert :1945 AGE: 73 y.o. ADMISSION DATE: 09/01/2018 DAYS ADMITTED: LOS: 4 days Todays Date: 09/05/2018 Plan Discharge planning ongoing Transfer to floor Hepatology and wound team following PT/OT/ST following Anticipate home with HH for PT/OT/RN when stable. Interventions ? Support ? Info or Referral ? Discharge Planning FOREST reviewed progress notes and discussed patient with ICU team, RNCM, and PT/ OT. Patient will be ready to discharge by the end of the week. FOREST met with patient and his . Patient prefers to discharge home when stable. His confirms she can provide 24/7 supervision and assistance with transfers. They are open to HH (recommended by PT/OT). FOREST updated RNCM, she will explore options and follow up with patient/ on Tuesday. SW and RNCM following. ? Medication Needs ? Financial Medicare and BCBS [place] ? Legal ? Other Patient lives in [place], [place] with . Disposition ? Expected Discharge Date Expected Discharge Date: 09/07/18 ? Transportation Does the patient need discharge transport arranged?: No Transportation Name, Phone and Availability #1: Ida- Spouse [phone] Does the patient use Medicaid Transportation?: No ? Next Level of Care (Acute Psych discharges only) ? Discharge Disposition Benedict Storey LMSW [phone] (phone) [phone] (pager) * Case Mgmt DC Plan - Mila Santiago RN - 09/05/2018 2:08 PM CDT Continuum of Care Case Management Note Patient was seen today by [facility] with a brief introduction and business card provided. Patient verbalized understanding that the Hospital to Home Program begins after discharge and includes a series of calls to monitor for further post discharge needs and readmission prevention. Outpatient NCM will continue to monitor from afar until patient is discharged. Mila Santiago RN, BSN [phone] * Care Plan - Raul Gudino OT - 09/04/2018 3:02 PM CDT Problem: Self-Care Deficit Goal: Maximize ADL functioning Outcome: Goal Ongoing Maximize ADL independence * Case Mgmt DC Plan - Sol Simmons RN - 09/04/2018 2:15 PM CDT Case Management Admission AssessmentNAME:Cuco Gilbert :1945 AGE: 73 y.o. ADMISSION DATE: 09/01/2018 DAYS ADMITTED: LOS: 3 days Todays Date: 09/04/2018 Source of Information: This NCM introduced self and explained role of CM. Patient resting in bed and able to answer all questions. Provided patient with business card and contact information. Plan Plan: CM Assessment, Assist PRN with SW/NCM Services, Discharge Planning for Home Anticipated Infectious work-up Consult PT/OT/FILM PAINTER Consult wound Consult Hepatology DC planning on going Transfer to [facility] Interventions ? Support Patient lives at home with Spouse and was independent prior to admission. ? Info or Referral ? Discharge Planning ? Medication Needs ? Financial ? Legal ? Other Disposition ? Expected Discharge Date Expected Discharge Date: 09/08/18 ? Transportation Does the patient need discharge transport arranged?: No Transportation Name, Phone and Availability #1: Ida- Spouse [phone] Does the patient use Medicaid Transportation?: No ? Next Level of Care (Acute Psych discharges only) ? Discharge Disposition Durable Medical Equipment No service has been selected for the patient. [facility] Destination No service has been selected for the patient. Home Care No service has been selected for the patient. Dialysis/Infusion No service has been selected for the patient. Patient Address/Phone [address] [facility] [phone] (home) Emergency Contact Extended Emergency Contact Information Primary Emergency Contact: Ida Gilbert Address: [address] [place] [id number] [facility] Mobile Relation: Spouse Secondary Emergency Contact: Chelsea Smith [facility] Mobile Relation: Relative Healthcare Directive Healthcare Directive: No, patient does not have a healthcare directive Would patient like to fill out a (a new) Healthcare Directive?: No, patient declined Psych Advance Directive (Psych unit only): No, patient does not have a Psych Advance Directive Transportation Does the patient need discharge transport arranged?: No Transportation Name, Phone and Availability #1: Ida- Spouse [phone] Does the patient use Medicaid Transportation?: No Expected Discharge Date Expected Discharge Date: 09/08/18 Living Situation Prior to Admission ? Living Arrangements Type of Residence: Home, independent Living Arrangements: Spouse/significant other Bathroom Shower / Tub: Walk-in Shower How many levels in the residence?: 1 Can patient live on one level if needed?: N/A Does residence have entry and/or side stairs?: Yes Assistance needed prior to admit or anticipated on discharge: No Who provides assistance or could if needed?: Spouse Are they in good health?: Yes Can support system provide 24/7 care if needed?: Maybe ? Level of Function Prior level of function: Independent ? Cognitive Abilities Cognitive Abilities: Alert and Oriented, Participates in decision making Financial Resources ? Coverage Primary Insurance: Medicare Secondary Insurance: Medicare Supplement Additional Coverage: RX ? Source of Income Source Of Income: SSI ? Financial Assistance Needed? no Psychosocial Needs ? Mental Health Mental Health History: No ? Substance Use History ? Other no Current/Previous Services ? PCP Jamie Sanders III, , ? Pharmacy [facility] [place] [address] [place] [address] [facility] [address] [facility] [place] [address] [address] ? Durable Medical Equipment Durable Medical Equipment at home: CPAP/BiPAP ? Home Health Receiving home health: No ? Hemodialysis or Peritoneal Dialysis Undergoing hemodialysis or peritoneal dialysis: No ? Tube/Enteral Feeds Receive tube/enteral feeds: No ? Infusion Receive infusions: No ? Private Duty Private duty help used: No ? Home and Community Based Services Home and community based services: No ? Valdemar Andres: N/A ? Hospice Hospice: No ? Outpatient Therapy PT: No OT: No FILM PAINTER: No ? Penitentiary Facility/Alf SNF: No NH: No ? Inpatient Rehab IPR: No ? Long-Term Acute Care Hospital LTACH: No ? Acute Hospital Stay Acute Hospital Stay: In the past Was patient's stay within the last 30 days?: No When did patient receive care?: 02/2018 Name of hospital: KATIUSKA Simmons RN, BSN Nurse [employer] Factory Worker [phone] * Care Plan - Jeanne Barrera RN - 09/02/2018 6:15 AM CDT Problem: Infection, Risk of, Urinary Catheter-Associated Urinary Tract Infection Goal: Absence of urinary catheter-associated infection Outcome: Goal Ongoing Bath with catheter care overnight. Problem: Infection, Risk of, Central Venous Catheter-Associated Bloodstream Infection Goal: Absence of CVC Associated Bloodstream infection Outcome: Goal Ongoing Bath with CHG device care overnight. Problem: Injury-Risk of, Non-Violent Physical Restraints Goal: Absence of Injury while physically restrained (Non-Violent) Outcome: Goal Ongoing Pt remained free of injury with soft limb non-violent wrist restraints. ROM performed q2. Problem: Skin Integrity Goal: Skin integrity intact Outcome: Goal Ongoing Pt receiving q2 turns. * Critical Results - Beatrice Piña RN - 09/01/2018 3:01 PM CDT Critical result or procedure called (document test and value, and read back): INR 8.2 Time MD/THERAPY TECH Notified: 1500 MD/THERAPY TECH Name: Benjamin MD/THERAPY TECH Response/Orders Given: Vitamin K ordered * Critical Results - Reilly Onofre RN - 09/01/2018 2:34 PM CDT Critical result or procedure called (document test and value, and read back): INR 8.2 Time MD/THERAPY TECH Notified: MD/THERAPY TECH Name: MD/THERAPY TECH Response/Orders Given: Notified primary RN in this encounter Plan of Treatment Order Schedule Name Priority Associated Diagnoses Expected: 09/12/2018 (Approximate), Expires: 09/07/2019 CBC Routine Acute on chronic systolic heart failure (HCC) Acute respiratory failure with hypoxia and hypercapnia (HCC) Septic shock (HCC) Supratherapeutic INR Atrial fibrillation with rapid ventricular response (HCC) Delirium Expected: 09/12/2018 (Approximate), Expires: 09/07/2019 PROTIME INR (PT) Routine Acute on chronic systolic heart failure (HCC) Acute respiratory failure with hypoxia and hypercapnia (HCC) Septic shock (HCC) Supratherapeutic INR Atrial fibrillation with rapid ventricular response (HCC) Delirium Expected: 09/12/2018 (Approximate), Expires: 09/07/2019 BASIC METABOLIC PANEL Routine Acute on chronic systolic heart failure (HCC) Acute respiratory failure with hypoxia and hypercapnia (HCC) Septic shock (HCC) Supratherapeutic INR Atrial fibrillation with rapid ventricular response (HCC) Delirium Expected: 09/12/2018 (Approximate), Expires: 09/07/2019 CBC STAT Acute respiratory failure with hypoxia and hypercapnia (HCC) Expected: 09/12/2018 (Approximate), Expires: 09/07/2019 PROTIME INR (PT) STAT Acute respiratory failure with hypoxia and hypercapnia (HCC) Expected: 09/12/2018 (Approximate), Expires: 09/07/2019 COMPREHENSIVE METABOLIC PANEL STAT Acute respiratory failure with hypoxia and hypercapnia (HCC) as of this encounter Goals Goal Patient Associated Recent Progress Patient-Stat Author Goal Type Problems ed? HEMOGLOBIN A1C < 7.0 Result 6.8 (09/07/2018 No [place], Component 3:35 AM CDT) KILEY Mcintosh as of this encounter Procedures Comments Procedure Name Priority Date/Time Associated Diagnosis ECG-SCAN 09/19/2018 5:30 PM INSURANCE UNDERWRITING ASSISTANT ECG-SCAN 09/10/2018 3:55 PM CDT TELEMETRY STRIPS-SCAN 09/08/2018 12:37 PM CDT POC GLUCOSE 09/07/2018 12:36 PM CDT CBC AND DIFF STAT 09/07/2018 8:48 AM CDT PHOSPHORUS STAT 09/07/2018 8:48 AM CDT BNP (B-TYPE NATRIURETIC Routine 09/07/2018 PEPTI) 8:48 AM CDT MAGNESIUM STAT 09/07/2018 8:48 AM CDT COMPREHENSIVE METABOLIC STAT 09/07/2018 PANEL 8:48 AM CDT POC GLUCOSE 09/07/2018 8:16 [...] CDT POC GLUCOSE 09/06/2018 3:52 AM CDT PROTIME INR (PT) Routine 09/06/2018 3:50 AM CDT CBC AND DIFF Routine 09/06/2018 3:50 AM CDT PHOSPHORUS Routine 09/06/2018 3:50 AM CDT MAGNESIUM Routine 09/06/2018 3:50 AM CDT COMPREHENSIVE METABOLIC Routine 09/06/2018 PANEL 3:50 AM CDT POC GLUCOSE 09/05/2018 9:25 PM CDT POC GLUCOSE 09/05/2018 3:59 PM CDT SWALLOW MOTION SERIES Routine 09/05/2018 1:53 PM CDT POC GLUCOSE 09/05/2018 11:53 AM CDT POC GLUCOSE 09/05/2018 8:45 AM CDT POC GLUCOSE 09/05/2018 3:11 AM CDT TACROLIMUS LEVEL(FK506) STAT 09/05/2018 3:11 AM CDT PROTIME INR (PT) Routine 09/05/2018 3:11 AM CDT CBC AND DIFF Routine 09/05/2018 3:11 AM CDT PHOSPHORUS Routine 09/05/2018 3:11 AM CDT MAGNESIUM Routine 09/05/2018 3:11 AM CDT COMPREHENSIVE METABOLIC Routine 09/05/2018 PANEL 3:11 AM CDT POC GLUCOSE 09/04/2018 8:32 [...] CDT POC GLUCOSE 09/03/2018 2:36 AM CDT PROTIME INR (PT) Routine 09/03/2018 2:35 AM CDT CBC AND DIFF Routine 09/03/2018 2:35 AM CDT PHOSPHORUS Routine 09/03/2018 2:35 AM CDT MAGNESIUM Routine 09/03/2018 2:35 AM CDT COMPREHENSIVE METABOLIC Routine 09/03/2018 PANEL 2:35 AM CDT TROPONIN-I STAT 09/03/2018 1:05 AM CDT POC GLUCOSE 09/02/2018 8:52 PM CDT TROPONIN-I STAT 09/02/2018 7:00 PM CDT HISTOPLASMA AG-URINE Routine 09/02/2018 RANDOM 6:45 PM CDT POC GLUCOSE 09/02/2018 4:14 PM CDT POC GLUCOSE 09/02/2018 12:57 PM CDT TACROLIMUS LEVEL(FK506) STAT 09/02/2018 9:09 AM CDT POC GLUCOSE 09/02/2018 8:39 AM CDT ABDOMEN AP ONLY Routine 09/02/2018 4:45 AM CDT TROPONIN-I STAT 09/02/2018 2:38 AM CDT PROTIME INR (PT) Routine 09/02/2018 2:38 AM CDT CBC AND DIFF Routine 09/02/2018 2:38 AM CDT PHOSPHORUS Routine 09/02/2018 2:38 AM CDT MAGNESIUM Routine 09/02/2018 2:38 AM CDT BLOOD GASES, ARTERIAL Routine 09/02/2018 2:38 AM CDT COMPREHENSIVE METABOLIC Routine 09/02/2018 PANEL 2:38 AM CDT POC GLUCOSE 09/02/2018 2:36 [...] PANEL Routine 09/01/2018 FLUID/TISSUE 4:06 PM CDT ASPERGILLUS GALACTOMANN Routine 09/01/2018 4:06 PM CDT PJP JIROVECI QUANT PCR Routine 09/01/2018 4:06 PM CDT RVP VIRAL PANEL PCR Routine 09/01/2018 4:06 PM CDT HERPES SIMPLEX PCR - Routine 09/01/2018 NON-BLOOD 4:06 PM CDT CULTURE-FUNGAL,OTHER Routine 09/01/2018 4:06 PM CDT GRAM STAIN 09/01/2018 4:06 PM CDT CULTURE-TB (AFB) Routine 09/01/2018 4:06 PM CDT CULTURE-RESP,LOWER Routine 09/01/2018 W/SENSITIVITY 4:06 PM CDT CMV QUANT PCR-FLUID Routine 09/01/2018 4:06 PM CDT CELL COUNT W/DIFF-FLUIDS Routine 09/01/2018 4:06 PM CDT BLOOD GASES, ARTERIAL Routine [...] CDT POC GLUCOSE 09/01/2018 1:48 PM CDT PROCALCITONIN 09/01/2018 1:45 PM CDT FUNGITELL STAT 09/01/2018 1:45 PM CDT TSH WITH FREE T4 REFLEX 09/01/2018 1:45 PM CDT CMV QUANT PCR-BLOOD Add on 09/01/2018 1:45 PM CDT LACTIC ACID (BG - RAPID Routine 09/01/2018 LACTATE) 1:45 PM CDT TROPONIN-I 09/01/2018 1:45 PM CDT PERIPHERAL SMEAR STAT 09/01/2018 1:45 PM CDT TACROLIMUS LEVEL(FK506) STAT 09/01/2018 1:45 PM CDT ASPERGILLUS STAT 09/01/2018 (GALACTOMANNAN) AG 1:45 PM CDT PROTIME INR (PT) Routine 09/01/2018 1:45 PM CDT FIBRINOGEN STAT 09/01/2018 1:45 PM CDT CBC AND DIFF Routine 09/01/2018 1:45 PM CDT TYPE & CROSSMATCH Routine 09/01/2018 1:45 PM CDT PHOSPHORUS 09/01/2018 1:45 PM CDT BNP (B-TYPE NATRIURETIC Routine 09/01/2018 PEPTI) 1:45 PM CDT MAGNESIUM 09/01/2018 1:45 PM CDT LDH-LACTATE DEHYDROGENASE 09/01/2018 1:45 PM CDT BLOOD GASES, ARTERIAL STAT 09/01/2018 1:45 PM CDT IONIZED CALCIUM Routine 09/01/2018 1:45 PM CDT VANCOMYCIN TIMED LEVEL Add on 09/01/2018 1:45 PM CDT COMPREHENSIVE METABOLIC 09/01/2018 PANEL 1:45 PM CDT UA REFLEX CULTURE LABEL Routine 09/01/2018 1:35 PM CDT URINALYSIS MICROSCOPIC Routine 09/01/2018 REFLEX TO CULTURE 1:35 PM CDT URINALYSIS DIPSTICK Routine 09/01/2018 REFLEX TO CULTURE 1:35 PM CDT STREPTOCOCCUS PNEUMO AG, Routine 09/01/2018 URINE 1:35 PM CDT LEGIONELLA ANTIGEN Routine 09/01/2018 URINE,RAN 1:35 PM CDT CULTURE-URINE Specimen 09/01/2018 W/SENSITIVITY in Lab 1:35 PM CDT GRAM STAIN 09/01/2018 1:20 PM CDT CULTURE-RESP,LOWER Routine 09/01/2018 W/SENSITIVITY 1:20 PM CDT ECG 12-LEAD STAT 09/01/2018 1:17 PM CDT NON-MOBILE UI DESIGNER CYTOLOGY (BODY 09/01/2018 FLUIDS/TISSUE) 11:32 AM CDT in this encounter Results * ECG-SCAN (09/19/2018 5:30 PM INSURANCE UNDERWRITING ASSISTANT) Narrative Performed At Ordered by an unspecified provider. * ECG-SCAN (09/10/2018 3:55 PM CDT) Narrative Performed At Ordered by an unspecified provider. * TELEMETRY STRIPS-SCAN (09/08/2018 12:37 PM CDT) Narrative Performed At Ordered by an unspecified provider. * POC GLUCOSE (09/07/2018 12:36 PM CDT) Glucose, POC 183 (H) 70 - 100 MG/DL [facility]IN [facility] Performing Organization Address [facility] Phone Number [facility] [address] [place] [address] * PHOSPHORUS (09/07/2018 8:48 AM CDT) Phosphorus 2.8Comment: NOTE NEW REFERENCE 2.0 - 4.5 MG/DL [facility] MAIN [facility] RANGES Specimen Blood Performing Organization Address [facility] Cent[facility]ode Phone Number [facility] [address] [place] [address] * MAGNESIUM (09/07/2018 8:48 AM CDT) Magnesium 1.8 1.6 - 2.6 mg/dL [facility]IN [facility] Specimen Blood Performing Organization Address [facility] Cent[facility] Phone Number MAIN LAB [address] [place] [address] * COMPREHENSIVE METABOLIC PANEL (09/07/2018 8:48 AM CDT) Sodium 137 137 - 147 MMOL/L [facility] [...] LAB eGFR Non 57 (L) >60 mL/min [facility] Comment: The eGFR is not validated for use in drug dosing adjustments.Continue to use estimated creatinine clearance per dosing reference text.Please contact the Clinical Pharmacist for questions. eGFR >60 >60 mL/min [facility] Comment: The eGFR is not validated for use in drug dosing adjustments.Continue to use estimated creatinine clearance per dosing reference text.Please contact the Clinical Pharmacist for questions. Specimen Blood Performing Organization Address City/State/Zipcode Phone Number [facility] [address] [place] [address] * CBC AND DIFF (09/07/2018 8:48 AM CDT) White Blood Cells 7.7 4.5 - 11.0 [...] Monocyte Count 0.50 0 - 0.80 [facility] MAIN LAB Absolute Eosinophil Count 0.10 0 - 0.45 K/UL [facility] Absolute Basophil Count 0.00 0 - 0.20 K/UL [facility] Specimen Blood Performing Organization Address City/State/Zipcode Phone Number MAIN LAB [address] [place] [address] * BNP (B-TYPE NATRIURETIC PEPTI) (09/07/2018 8:48 AM CDT) B Type Natriuretic 503.0 (H) 0 - 100 PG/ML MAIN LAB Peptide Specimen Blood Performing Organization Address City/[facility] Cent[facility] Phone Number MAIN LAB [address] [place] [address] * POC GLUCOSE (09/07/2018 8:16 AM CDT) Glucose, POC 148 (H) 70 - 100 MG/DL [facility] Performing Organization Address City/[facility] Cent[facility] Phone Number MAIN LAB [address] [place] [phone] * POC GLUCOSE (09/07/2018 3:38 AM CDT) Glucose, POC 151 (H) 70 - 100 MG/DL [facility] Performing Organization Address City/[facility] Cent[facility] Phone Number MAIN LAB [address] [place] [phone] * PROTIME INR (PT) (09/07/2018 3:35 AM CDT) INR 1.4 (H) 0.8 - 1.2 MAIN LAB Specimen Blood Performing Organization Address City/[facility] Cent[facility] Phone Number MAIN LAB [address] [place] [address] * HEMOGLOBIN A1C (09/07/2018 3:35 AM CDT) Hemoglobin A1C 6.8 (H) 4.0 - 6.0 % [facility] Comment: The ADA recommends that most patients with type 1 and type 2 diabetes maintain an A1c level <7%. Specimen Blood Performing Organization Address City/[facility]/Zipcode Phone Number MAIN LAB [address] [place] [address] * POC GLUCOSE (09/06/2018 9:37 PM CDT) Glucose, POC 192 (H) 70 - 100 MG/DL [facility] Performing Organization Address [facility] Cent[facility]ode Phone Number [facility] [address] [place] [address] * POC GLUCOSE (09/06/2018 5:48 PM CDT) Glucose, POC 168 (H) 70 - 100 MG/DL MAIN LAB Performing Organization Address City/[facility] Cent[facility] Phone Number MAIN LAB [address] [place] [address] * POC GLUCOSE (09/06/2018 2:09 PM CDT) Glucose, POC 174 (H) 70 - 100 MG/DL MAIN LAB Performing Organization Address [facility] Phone Number MAIN LAB [address] [place] [address] * LIMITED ECHOCARDIOGRAM (09/06/2018 12:13 PM CDT) [...] % OTHER OUTSIDE LAB CV ECHO PV BULK SEALER ISH Adamson - Definty OTHER OUTSIDE LAB LV mass 208.26 96 - 200 g OTHER OUTSIDE LAB RWT 0.38 <=0.42 OTHER OUTSIDE LAB Cardiology Ultrasound Siemens [id number] OTHER OUTSIDE LAB Machine Left Ventricle Mass [...] and right atrial enlargement Performing Organization Address [facility] Phone Number OTHER OUTSIDE LAB * POC GLUCOSE (09/06/2018 9:15 AM CDT) Glucose, POC 188 (H) 70 - 100 MG/DL [facility] Performing Organization Address [facility] Phone Number MAIN LAB [address] [place] [address] * TACROLIMUS LEVEL([id number]) (09/06/2018 9:07 AM CDT) Tacrolimus 3.6 2 - 15 NG/ML MAIN LAB Comment: Target concentrations vary by type of transplant, patient response, concomitant immunosuppression and post-transplant time interval.Test was performed on whole blood using [employer] QMS reagent and a [employer] AU analyzer. Specimen Blood Performing Organization Address [facility] Phone Number MAIN LAB [address] [place] [address] * POC GLUCOSE (09/06/2018 3:52 AM CDT) Glucose, POC 146 (H) 70 - 100 MG/DL [facility] Performing Organization Address [facility] Phone Number MAIN LAB [address] [place] [address] * PROTIME INR (PT) (09/06/2018 3:50 AM CDT) INR 1.4 (H) 0.8 - 1.2 MAIN LAB Specimen Blood Performing Organization Address [facility] Phone Number MAIN LAB [address] [place] [address] * PHOSPHORUS (09/06/2018 3:50 AM CDT) Phosphorus 2.9Comment: NOTE NEW REFERENCE 2.0 - 4.5 MG/DL [facility]IN [facility] RANGES Specimen Blood Performing Organization Address City/[facility]/Zipcode Phone Number MAIN LAB [address] [place] [address] * MAGNESIUM (09/06/2018 3:50 AM CDT) Magnesium 1.6 1.6 - 2.6 mg/dL [facility] Specimen Blood Performing Organization Address City/[facility] Cent[facility]ode Phone Number [facility] [address] [place] [address] * COMPREHENSIVE METABOLIC PANEL (09/06/2018 3:50 AM CDT) Sodium 139 137 - 147 MMOL/L [facility] Potassium 3.7 3.5 - 5.1 MMOL/L [facility] Chloride 103 98 - 110 MMOL/L [facility] Glucose 145 (H) 70 - 100 MG/DL [facility] Blood Urea Nitrogen 32 (H) 7 - 25 MG/DL [facility] Creatinine 1.49 (H) 0.4 - 1.24 MG/DL [facility] Calcium 9.2 8.5 - 10.6 MG/DL [facility] Total Protein 5.5 (L) 6.0 - 8.0 G/DL [facility] Total Bilirubin 0.9 0.3 - 1.2 MG/DL [facility] Albumin 3.1 (L) 3.5 - 5.0 G/DL [facility] Alk Phosphatase 55 25 - 110 U/L [facility] AST (SGOT) 9 7 - 40 U/L [facility] CO2 29 21 - 30 MMOL/L [facility] ALT (SGPT) 5 (L) 7 - 56 U/L [facility] Anion Gap 7 3 - 12 [facility] eGFR Non 46 (L) >60 mL/min [facility] Comment: The eGFR is not validated for use in drug dosing adjustments.Continue to use estimated creatinine clearance per dosing reference text.Please contact the Clinical Pharmacist for questions. eGFR 56 (L) >60 mL/min [facility] Comment: The eGFR is not validated for use in drug dosing adjustments.Continue to use estimated creatinine clearance per dosing reference text.Please contact the Clinical Pharmacist for questions. Specimen Blood Performing Organization Address City/[facility]/Zipcode Phone Number MAIN LAB [address] [place] [address] * CBC AND DIFF (09/06/2018 3:50 AM CDT) White Blood Cells 8.4 4.5 - 11.0 [facility] MAIN LAB RBC 4.51 4.4 - 5.5 M/UL MAIN LAB Hemoglobin 11.3 (L) 13.5 - 16.5 GM/DL [facility]IN [facility] Hematocrit 34.7 (L) 40 - 50 % MAIN LAB MCV 76.8 (L) 80 - 100 FL MAIN LAB MCH 25.0 (L) 26 - 34 PG MAIN LAB MCHC 32.5 32.0 - 36.0 G/DL MAIN LAB RDW 18.0 (H) 11 - 15 % MAIN LAB Platelet Count 184 150 - 400 K[facility] MAIN LAB MPV 7.5 7 - 11 FL MAIN LAB Neutrophils 81 (H) 41 - 77 % [facility] Lymphocytes 9 (L) 24 - 44 % MAIN LAB Monocytes 7 4 - 12 % MAIN LAB Eosinophils 2 0 - 5 % MAIN LAB Basophils 1 0 - 2 % MAIN LAB Absolute Neutrophil Count 6.90 1.8 - 7.0 K/UL [facility] Absolute Lymph Count 0.70 (L) 1.0 - 4.8 K/[facility] MAIN LAB Absolute Monocyte Count 0.60 0 - 0.80 K/[facility] MAIN LAB Absolute Eosinophil Count 0.10 0 - 0.45 K[facility] MAIN LAB Absolute Basophil Count 0.00 0 - 0.20 K[facility] MAIN LAB Specimen Blood Performing Organization Address City/State/Zipcode Phone Number MAIN LAB [address] [place] [address] * POC GLUCOSE (09/05/2018 9:25 PM CDT) Glucose, POC 196 (H) 70 - 100 MG/DL [facility] Performing Organization Address City/State/Zipcode Phone Number [facility] [address] [place] [address] * POC GLUCOSE (09/05/2018 3:59 PM CDT) Glucose, POC 145 (H) 70 - 100 MG/DL [facility] Performing Organization Address City/State/Zipcode Phone Number MAIN LAB [address] [place] [address] * SWALLOW MOTION SERIES (09/05/2018 1:53 PM [...] on 09/05/2018 2:41 PM. Performing Organization Address City/State/Zipcode Phone Number [facility] RAD RESULTS * POC GLUCOSE (09/05/2018 11:53 AM CDT) Glucose, POC 160 (H) 70 - 100 MG/DL [facility] Performing Organization Address [facility] Cent[facility] Phone Number [facility] [address] [place] [address] * POC GLUCOSE (09/05/2018 8:45 AM CDT) Glucose, POC 126 (H) 70 - 100 MG/DL [facility] Performing Organization Address [facility] Phone Number [facility] [address] [place] [address] * POC GLUCOSE (09/05/2018 3:11 AM CDT) Glucose, POC 136 (H) 70 - 100 MG/DL [facility] Performing Organization Address [facility] Phone Number [facility]IN LAB [address] [place] [address] * TACROLIMUS LEVEL([id number]) (09/05/2018 3:11 AM CDT) Tacrolimus 6.0 2 - 15 NG/ML MAIN LAB Comment: Target concentrations vary by type of transplant, patient response, concomitant immunosuppression and post-transplant time interval.Test was performed on whole blood using [employer] QMS reagent and a Krist[employer] [place] [employer] AU analyzer. Specimen Blood Performing Organization Address [facility] Phone Number MAIN LAB [address] [place] [address] * PROTIME INR (PT) (09/05/2018 3:11 AM CDT) INR 1.4 (H) 0.8 - 1.2 MAIN LAB Specimen Blood Performing Organization Address [facility] Cent[facility] Phone Number MAIN LAB [address] [place] [address] * PHOSPHORUS (09/05/2018 3:11 AM CDT) Phosphorus 2.9Comment: NOTE NEW REFERENCE 2.0 - 4.5 MG/DL [facility] MAIN [facility] RANGES Specimen Blood Performing Organization Address [facility] Phone Number MAIN LAB [address] [place] [address] * MAGNESIUM (09/05/2018 3:11 AM CDT) Magnesium 1.9 1.6 - 2.6 mg/dL [facility]IN [facility] Specimen Blood Performing Organization Address [facility]/Zipcode Phone Number MAIN LAB [address] [place] [address] * COMPREHENSIVE METABOLIC PANEL (09/05/2018 3:11 AM CDT) Sodium 136 (L) 137 - 147 MMOL/L [facility] MAIN [facility] Potassium 4.1 3.5 - 5.1 MMOL/L [facility] Chloride 101 98 - 110 MMOL/L [facility]IN [facility] Glucose 144 (H) 70 - 100 MG/DL [facility]IN [facility] Blood Urea Nitrogen 38 (H) 7 - 25 MG/DL [facility] Creatinine 1.51 (H) 0.4 - 1.24 MG/DL [facility] Calcium 9.5 8.5 - 10.6 MG/DL [facility] Total Protein 6.1 6.0 - 8.0 G/DL [facility] Total Bilirubin 1.1 0.3 - 1.2 MG/DL [facility] Albumin 3.4 (L) 3.5 - 5.0 G/DL [facility] Alk Phosphatase 66 25 - 110 U/L [facility] AST (SGOT) 11 7 - 40 U/L [facility] CO2 24 21 - 30 MMOL/L [facility] ALT (SGPT) 5 (L) 7 - 56 U/L [facility] Anion Gap 11 3 - 12 [facility] eGFR Non 46 (L) >60 mL/min [facility] Comment: The eGFR is not validated for use in drug dosing adjustments.Continue to use estimated creatinine clearance per dosing reference text.Please contact the Clinical Pharmacist for questions. eGFR 55 (L) >60 mL/min [facility]IN [facility] Comment: The eGFR is not validated for use in drug dosing adjustments.Continue to use estimated creatinine clearance per dosing reference text.Please contact the Clinical Pharmacist for questions. Specimen Blood Performing Organization Address City/[facility]/Zipcode Phone Number MAIN LAB [address] [place] [address] * CBC AND DIFF (09/05/2018 3:11 AM CDT) White Blood Cells 10.1 4.5 - 11.0 K/UL [facility] RBC 5.07 4.4 - 5.5 M/UL [facility] Hemoglobin 12.3 (L) 13.5 - 16.5 GM/DL [facility] Hematocrit 38.9 (L) 40 - 50 % [facility] MCV 76.7 (L) 80 - 100 FL [facility] MAIN [facility] MCH 24.2 (L) 26 - 34 PG [facility] MAIN [facility] MCHC 31.5 (L) 32.0 - 36.0 G/DL [facility] RDW 18.2 (H) 11 - 15 % [facility] Platelet Count 173 150 - 400 K/UL [facility] MPV 7.4 7 - 11 FL [facility] Neutrophils 84 (H) 41 - 77 % [facility] Lymphocytes 7 (L) 24 - 44 % [facility] Monocytes 6 4 - 12 % [facility] Eosinophils 2 0 - 5 % [facility] Basophils 1 0 - 2 % [facility] Absolute Neutrophil Count 8.70 (H) 1.8 - 7.0 K/UL [facility] Absolute Lymph Count 0.70 (L) 1.0 - 4.8 K/UL [facility] Absolute Monocyte Count 0.60 0 - 0.80 K/UL MAIN LAB Absolute Eosinophil Count 0.20 0 - 0.45 K/UL [facility] Absolute Basophil Count 0.10 0 - 0.20 K/UL [facility]IN [facility] Specimen Blood Performing Organization Address City/[facility] Phone Number MAIN LAB [address] [place] [address] * POC GLUCOSE (09/04/2018 8:32 PM CDT) Glucose, POC 134 (H) 70 - 100 MG/DL [facility] Performing Organization Address City/[facility]/Zipcode Phone Number MAIN LAB [address] [place] [address] * POC GLUCOSE (09/04/2018 5:23 PM CDT) Glucose, POC 142 (H) 70 - 100 MG/DL [facility] Performing Organization Address City/[facility]/Zipcode Phone Number [facility] MAIN [facility] [address] [place] [address] * POC GLUCOSE (09/04/2018 11:51 AM CDT) Glucose, POC 90 70 - 100 MG/DL [facility] Performing Organization Address City/[facility]/Zipcode Phone Number MAIN LAB [address] [place] [address] * POC GLUCOSE (09/04/2018 8:12 AM CDT) Glucose, POC 89 70 - 100 MG/DL [facility] Performing Organization Address [facility] Phone Number [facility] [address] [place] [address] * POC GLUCOSE (09/04/2018 3:28 AM CDT) Glucose, POC 93 70 - 100 MG/DL [facility] Performing Organization Address [facility] Phone Number [facility] [address] [place] [address] * TACROLIMUS LEVEL([id number]) (09/04/2018 3:28 AM CDT) Tacrolimus 5.5 2 - 15 NG/ML [facility]IN [facility] Comment: Target concentrations vary by type of transplant, patient response, concomitant immunosuppression and post-transplant time interval.Test was performed on whole blood using [employer] reagent and a [employer] AU analyzer. Specimen Blood Performing Organization Address [facility] Phone Number [facility] [address] [place] [address] * PROTIME INR (PT) (09/04/2018 3:28 AM CDT) INR 1.5 (H) 0.8 - 1.2 [facility] Specimen Blood Performing Organization Address [facility] Phone Number [facility] [address] [place] [address] * CBC AND DIFF (09/04/2018 3:28 AM CDT) White Blood Cells 8.3 4.5 - 11.0 K/UL [facility]IN [facility] RBC 4.69 4.4 - 5.5 M/UL [facility] MAIN [facility] Hemoglobin 11.5 (L) 13.5 - 16.5 GM/DL [facility]IN [facility] Hematocrit 36.5 (L) 40 - 50 % [facility] MCV 77.9 (L) 80 - 100 FL [facility] MAIN [facility] MCH 24.5 (L) 26 - 34 PG [facility] MCHC 31.5 (L) 32.0 - 36.0 G/DL [facility] RDW 18.5 (H) 11 - 15 % [facility]IN [facility] Platelet Count 156 150 - 400 K/UL [facility] MPV 7.8 7 - 11 FL [facility] Neutrophils 87 (H) 41 - 77 % [facility] Lymphocytes 7 (L) 24 - 44 % [facility] Monocytes 4 4 - 12 % [facility] Eosinophils 1 0 - 5 % [facility] Basophils 1 0 - 2 % [facility] Absolute Neutrophil Count 7.20 (H) 1.8 - 7.0 K/UL [facility] Absolute Lymph Count 0.60 (L) 1.0 - 4.8 K/UL [facility] Absolute Monocyte Count 0.30 0 - 0.80 K/UL [facility] Absolute Eosinophil Count 0.10 0 - 0.45 K/UL [facility] Absolute Basophil Count 0.10 0 - 0.20 K/UL [facility]IN [facility] Specimen Blood Performing Organization Address City/[facility] Phone Number [facility] MA[facility] [address] [place] [address] * PHOSPHORUS (09/04/2018 1:15 AM CDT) Phosphorus 1.9 (L)Comment: NOTE NEW 2.0 - 4.5 MG/DL [facility] MAIN [facility] REFERENCE RANGES Specimen Blood Performing Organization Address [facility] Phone Number [facility] [address] [place] [address] * MAGNESIUM (09/04/2018 1:15 AM CDT) Magnesium 2.0 1.6 - 2.6 mg/dL [facility]IN [facility] Specimen Blood Performing Organization Address [facility] Phone Number [facility] [address] [place] [address] * COMPREHENSIVE METABOLIC PANEL (09/04/2018 1:15 AM CDT) Sodium 138 137 - 147 MMOL/L [facility] Potassium 4.2 3.5 - 5.1 MMOL/L [facility] Chloride 105 98 - 110 MMOL/L [facility] Glucose 110 (H) 70 - 100 MG/DL [facility] Blood Urea Nitrogen 41 (H) 7 - 25 MG/DL [facility] Creatinine 1.64 (H) 0.4 - 1.24 MG/DL [facility] Calcium 9.1 8.5 - 10.6 MG/DL [facility] Total Protein 5.6 (L) 6.0 - 8.0 G/DL [facility]IN [facility] Total Bilirubin 1.4 (H) 0.3 - 1.2 MG/DL [facility] Albumin 3.1 (L) 3.5 - 5.0 G/DL [facility]IN [facility] Alk Phosphatase 55 25 - 110 U/L [facility] AST (SGOT) 9 7 - 40 U/L [facility] CO2 24 21 - 30 MMOL/L MAIN LAB ALT (SGPT) <3 (L) 7 - 56 U/L MAIN LAB Anion Gap 9 3 - 12 MAIN LAB eGFR Non 41 (L) >60 mL/min MAIN LAB Comment: The eGFR is not validated for use in drug dosing adjustments.Continue to use estimated creatinine clearance per dosing reference text.Please contact the Clinical Pharmacist for questions. eGFR 50 (L) >60 mL/min MAIN LAB Comment: The eGFR is not validated for use in drug dosing adjustments.Continue to use estimated creatinine clearance per dosing reference text.Please contact the Clinical Pharmacist for questions. Specimen Blood Performing Organization Address City/[facility]/Zipcode Phone Number MAIN LAB [address] [place] [address] * POC GLUCOSE (09/03/2018 8:13 PM CDT) Glucose, POC 167 (H) 70 - 100 MG/DL [facility] Performing Organization Address [facility] Phone Number MAIN LAB [address] [place] [address] * POC GLUCOSE (09/03/2018 2:22 PM CDT) Glucose, POC 162 (H) 70 - 100 MG/DL [facility]IN [facility] Performing Organization Address City/[facility] Phone Number MAIN LAB [address] [place] [id number] * POC GLUCOSE (09/03/2018 12:35 PM CDT) Glucose, POC 181 (H) 70 - 100 MG/DL [facility]IN [facility] Performing Organization Address [facility] Phone Number MAIN LAB [address] [place] [address] * POC GLUCOSE (09/03/2018 9:40 AM CDT) Glucose, POC 89 70 - 100 MG/DL [facility]IN [facility] Performing Organization Address City/[facility] Phone Number MAIN LAB [address] [place] [address] * TACROLIMUS LEVEL([id number]) (09/03/2018 8:40 AM CDT) Tacrolimus 4.7 2 - 15 NG/ML MAIN LAB Comment: Target concentrations vary by type of transplant, patient response, concomitant immunosuppression and post-transplant time interval.Test was performed on whole blood using [employer] QMS reagent and a Krist[employer] Erik AU analyzer. Specimen Blood Performing Organization Address City/[facility] Phone Number MAIN LAB [address] [place] [address] * POC GLUCOSE (09/03/2018 8:39 AM CDT) Glucose, POC 68 (L) 70 - 100 MG/DL [facility] Performing Organization Address [facility] Phone Number [facility]IN LAB [address] [place] [address] * TROPONIN-I (09/03/2018 6:44 AM CDT) Troponin-I 0.10 (H) 0.0 - 0.05 NG/ML [facility] Specimen Blood Performing Organization Address [facility] Phone Number MAIN LAB [address] [place] [address] * POC GLUCOSE (09/03/2018 2:36 AM CDT) Glucose, POC 84 70 - 100 MG/DL [facility] Performing Organization Address [facility] [place] Phone Number MAIN LAB [address] [place] [address] * PROTIME INR (PT) (09/03/2018 2:35 AM CDT) INR 1.8 (H) 0.8 - 1.2 MAIN LAB Specimen Blood Performing Organization Address [facility] Phone Number MAIN LAB [address] [place] [address] * PHOSPHORUS (09/03/2018 2:35 AM CDT) Phosphorus 2.0Comment: NOTE NEW REFERENCE 2.0 - 4.5 MG/DL MAIN LAB RANGES Specimen Blood Performing Organization Address [facility] Phone Number MAIN LAB [address] [place] [address] * MAGNESIUM (09/03/2018 2:35 AM CDT) Magnesium 1.7 1.6 - 2.6 mg/dL MAIN LAB Specimen Blood Performing Organization Address [facility] Phone Number MAIN LAB [address] [place] [address] * COMPREHENSIVE METABOLIC PANEL (09/03/2018 2:35 AM CDT) Sodium 137 137 - 147 MMOL/L [facility]IN [facility] Potassium 4.3 3.5 - 5.1 MMOL/L [facility]IN [facility] Chloride 106 98 - 110 MMOL/L [facility] Glucose 81 70 - 100 MG/DL [facility] MAIN [facility] Blood Urea Nitrogen 46 (H) 7 - 25 MG/DL [facility] Creatinine 1.81 (H) 0.4 - 1.24 MG/DL [facility] Calcium 8.8 8.5 - 10.6 MG/DL [facility] Total Protein 4.9 (L) 6.0 - 8.0 G/DL [facility] Total Bilirubin 1.4 (H) 0.3 - 1.2 MG/DL [facility] Albumin 2.7 (L) 3.5 - 5.0 G/DL [facility] MAIN [facility] Alk Phosphatase 45 25 - 110 U/L [facility] AST (SGOT) 6 (L) 7 - 40 U/L [facility] CO2 24 21 - 30 MMOL/L [facility] ALT (SGPT) 3 (L) 7 - 56 U/L [facility] Anion Gap 7 3 - 12 [facility] MAIN [facility] eGFR Non 37 (L) >60 mL/min [facility] MAIN [facility] Comment: The eGFR is not validated for use in drug dosing adjustments.Continue to use estimated creatinine clearance per dosing reference text.Please contact the Clinical Pharmacist for questions. eGFR 45 (L) >60 mL/min [facility] MAIN [facility] Comment: The eGFR is not validated for use in drug dosing adjustments.Continue to use estimated creatinine clearance per dosing reference text.Please contact the Clinical Pharmacist for questions. Specimen Blood Performing Organization Address City/State/Zipcode Phone Number MAIN LAB [address] [place] [address] * CBC AND DIFF (09/03/2018 2:35 AM CDT) White Blood Cells 7.8 4.5 - 11.0 K/UL [facility] MAIN [facility] RBC 4.59 4.4 - 5.5 M/UL [facility] MAIN [facility] Hemoglobin 11.1 (L) 13.5 - 16.5 GM/DL [facility] MAIN [facility] Hematocrit 35.7 (L) 40 - 50 % [facility]IN [facility] MCV 77.7 (L) 80 - 100 FL [facility] MAIN [facility] MCH 24.3 (L) 26 - 34 PG [facility]IN [facility] MCHC 31.2 (L) 32.0 - 36.0 G/DL MAIN LAB RDW 18.9 (H) 11 - 15 % MAIN LAB Platelet Count 148 (L) 150 - 400 K/UL MAIN LAB MPV 7.7 7 - 11 FL MAIN LAB Neutrophils 85 (H) 41 - 77 % MAIN LAB Lymphocytes 10 (L) 24 - 44 % MAIN LAB Monocytes 4 4 - 12 % MAIN LAB Eosinophils 1 0 - 5 % MAIN LAB Basophils 0 0 - 2 % MAIN LAB Absolute Neutrophil Count 6.60 1.8 - 7.0 K/UL MAIN LAB Absolute Lymph Count 0.80 (L) 1.0 - 4.8 K/UL MAIN LAB Absolute Monocyte Count 0.30 0 - 0.80 K/UL MAIN LAB Absolute Eosinophil Count 0.10 0 - 0.45 K/UL MAIN LAB Absolute Basophil Count 0.00 0 - 0.20 K/UL MAIN LAB Specimen Blood Performing Organization Address City/[facility] Phone Number MAIN LAB [address] [place] [address] * TROPONIN-I (09/03/2018 1:05 AM CDT) Troponin-I 0.12 (H) 0.0 - 0.05 NG/ML MAIN LAB Specimen Blood Performing Organization Address City/[facility] Phone Number MAIN LAB [address] [place] [address] * POC GLUCOSE (09/02/2018 8:52 PM CDT) Glucose, POC 124 (H) 70 - 100 MG/DL MAIN LAB Performing Organization Address [facility] Phone Number MAIN LAB [address] [place] [address] * TROPONIN-I (09/02/2018 7:00 PM CDT) Troponin-I 0.15 (H) 0.0 - 0.05 NG/ML MAIN LAB Specimen Blood Performing Organization Address [facility] Cent[facility] Phone Number MAIN LAB [address] [place] [address] * HISTOPLASMA AG-URINE RANDOM (09/02/2018 6:45 PM CDT) Histo Wheat Ag NONE DETECTED ng/mL REFERENCE LAB Comment: NEGATIVE SEE ENGRAVER STEEL PLATE FOR REPORT Specimen Urine - Urine Narrative Performed At Performing Organization Address City/State/Zipcode Phone Number REFERENCE LAB REFERENCE LAB See results for address. * POC GLUCOSE (09/02/2018 4:14 PM CDT) Glucose, POC 153 (H) 70 - 100 MG/DL [facility]IN [facility] Performing Organization Address [facility] Phone Number [facility] [address] [place] [address] * POC GLUCOSE (09/02/2018 12:57 PM CDT) Glucose, POC 137 (H) 70 - 100 MG/DL [facility]IN [facility] Performing Organization Address [facility] Phone Number MAIN LAB [address] [place] [address] * TACROLIMUS LEVEL([id number]) (09/02/2018 9:09 AM CDT) Tacrolimus 4.9 2 - 15 NG/ML MAIN LAB Comment: Target concentrations vary by type of transplant, patient response, concomitant immunosuppression and post-transplant time interval.Test was performed on whole blood using [employer] QMS reagent and a Kristy Erik AU analyzer. Specimen Blood Performing Organization Address [facility] Phone Number MAIN LAB [address] [place] [address] * POC GLUCOSE (09/02/2018 8:39 AM CDT) Glucose, POC 155 (H) 70 - 100 MG/DL MAIN LAB Performing Organization Address [facility] Phone Number MAIN LAB [address] [place] [address] * ABDOMEN AP ONLY (09/02/2018 4:45 AM [...] on 09/02/2018 7:11 AM. Performing Organization Address [facility] Phone Number [facility] RESULTS * BLOOD GASES, ARTERIAL (09/02/2018 2:38 AM CDT) pH-Arterial 7.30 (L) 7.35 - 7.45 [facility] pCO2-Arterial 50 (H) 35 - 45 MM[facility] pO2-Arterial 151 (H) 80 - 100 MM[facility] Base Deficit-Arterial 2.3 MMOL/L [facility] O2 Sat-Arterial 99.0 95 - 99 % [facility] Zprjeacidhi-QEG-Bcu 22.5 21 - 28 MMOL/L [facility] Specimen Blood, arterial - Blood Performing Organization Address [facility] Phone Number [facility] [address] [place] [address] * PROTIME INR (PT) (09/02/2018 2:38 AM CDT) INR 3.8 (H) 0.8 - 1.2 [facility] Specimen Blood Performing Organization Address [facility]/State/Zipcode Phone Number [facility] MAIN [facility] [address] [place] [address] * TROPONIN-I (09/02/2018 2:38 AM CDT) Troponin-I 0.12 (H) 0.0 - 0.05 NG/ML [facility] MAIN [facility] Specimen Blood Performing Organization Address [facility] Phone Number [facility] [address] [place] [phone] * PHOSPHORUS (09/02/2018 2:38 AM CDT) Phosphorus 3.2Comment: NOTE NEW REFERENCE 2.0 - 4.5 MG/DL [facility] MAIN LAB RANGES Specimen Blood Performing Organization Address [facility] Phone Number [facility] [address] [place] [address] * MAGNESIUM (09/02/2018 2:38 AM CDT) Magnesium 1.7 1.6 - 2.6 mg/dL [facility]IN [facility] Specimen Blood Performing Organization Address [facility] Phone Number [facility] [address] [place] [address] * COMPREHENSIVE METABOLIC PANEL (09/02/2018 2:38 AM CDT) Sodium 134 (L) 137 - 147 MMOL/L [facility] Potassium 4.5 3.5 - 5.1 MMOL/L [facility] Chloride 103 98 - 110 MMOL/L [facility]IN [facility] Glucose 185 (H) 70 - 100 MG/DL [facility] Blood Urea Nitrogen 50 (H) 7 - 25 MG/DL [facility] Creatinine 1.77 (H) 0.4 - 1.24 MG/DL [facility] MAIN [facility] Calcium 8.9 8.5 - 10.6 MG/DL [facility] Total Protein 5.2 (L) 6.0 - 8.0 G/DL [facility] MAIN [facility] Total Bilirubin 1.2 0.3 - 1.2 MG/DL [facility] MAIN [facility] Albumin 2.9 (L) 3.5 - 5.0 G/DL [facility] MA[facility] Alk Phosphatase 52 25 - 110 U/L [facility] MA[facility] AST (SGOT) 7 7 - 40 U/L [facility] CO2 23 21 - 30 MMOL/L [facility] ALT (SGPT) 3 (L) 7 - 56 U/L [facility] Anion Gap 8 3 - 12 [facility] MAIN [facility] eGFR Non 38 (L) >60 mL/min [facility]IN [facility] Comment: The eGFR is not validated for use in drug dosing adjustments.Continue to use estimated creatinine clearance per dosing reference text.Please contact the Clinical Pharmacist for questions. eGFR 46 (L) >60 mL/min [facility] MAIN [facility] Comment: The eGFR is not validated for use in drug dosing adjustments.Continue to use estimated creatinine clearance per dosing reference text.Please contact the Clinical Pharmacist for questions. Specimen Blood Performing Organization Address City/[facility]/Zipcode Phone Number MAIN LAB [address] [place] [address] * CBC AND DIFF (09/02/2018 2:38 AM CDT) White Blood Cells 12.4 (H) 4.5 - 11.0 K/UL [facility] MAIN [facility] RBC 5.33 4.4 - 5.5 M/UL [facility] MAIN [facility] Hemoglobin 13.0 (L) 13.5 - 16.5 GM/DL [facility] MAIN LAB Hematocrit 41.6 40 - 50 % [facility] MAIN [facility] MCV 78.1 (L) 80 - 100 FL [facility] MAIN [facility] MCH 24.4 (L) 26 - 34 PG [facility]IN [facility] MCHC 31.2 (L) 32.0 - 36.0 G/DL [facility] MAIN [facility] RDW 19.0 (H) 11 - 15 % [facility] Platelet Count 217 150 - 400 K/UL [facility] MPV 7.4 7 - 11 FL [facility] MAIN [facility] Neutrophils 89 (H) 41 - 77 % [facility] MA[facility] Lymphocytes 6 (L) 24 - 44 % [facility] Monocytes 4 4 - 12 % [facility] Eosinophils 1 0 - 5 % [facility] Basophils 0 0 - 2 % [facility] Absolute Neutrophil Count 11.00 (H) 1.8 - 7.0 K/UL [facility] MAIN [facility] Absolute Lymph Count 0.70 (L) 1.0 - 4.8 K/UL [facility] Absolute Monocyte Count 0.50 0 - 0.80 K/UL [facility] MAIN [facility] Absolute Eosinophil Count 0.10 0 - 0.45 K/UL [facility] MAIN [facility] Absolute Basophil Count 0.00 0 - 0.20 K/UL [facility] MAIN [facility] Specimen Blood Performing Organization Address City/[facility]/Zipcode Phone Number MAIN LAB [address] [place] [address] * POC GLUCOSE (09/02/2018 2:36 AM CDT) Glucose, POC 177 (H) 70 - 100 MG/DL [facility] Performing Organization Address [facility] Phone Number [facility] [address] [place] [address] * POC GLUCOSE (09/02/2018 12:37 AM CDT) Glucose, POC 167 (H) 70 - 100 MG/DL [facility] Performing Organization Address [facility] Phone Number [facility] [address] [place] [address] * TROPONIN-I (09/01/2018 7:30 PM CDT) Troponin-I 0.09 (H) 0.0 - 0.05 NG/ML [facility] Specimen Blood Performing Organization Address [facility] Phone Number [facility] [address] [place] [address] * CT CHEST WO CONTRAST (09/01/2018 6:49 PM CDT) Impressions Performed At 1.Patchy consolidative and groundglass opacities throughout both lungs most [facility] RAD RESULTS compatible with multifocal pneumonia mixed with atelectasis. Small right and trace left pleural effusions, likely parapneumonic rather than sequela of CHF or fluid overload. 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 [...] effusion. Prior median sternotomy and CABG. Dense beaver coronary artery calcification and moderate calcification of [...] effusion. Prior median sternotomy and CABG. Dense beaver coronary artery calcification and moderate calcification of [...] sternotomy and CABG with mild cardiomegaly, dense beaver coronary artery calcification, and aortic valve calcification. [...] Theodore Mcbride M.D. on 09/01/2018 7:17 PM. Performing Organization Address City/State/Zipcode Phone Number [facility] RESULTS * TRANSFUSE PLASMA (FFP) (09/01/2018 5:27 PM CDT) * TRANSFUSE PLASMA (FFP) (09/01/2018 5:27 PM CDT) * 2-D + DOPPLER ECHOCARDIOGRAM (09/01/2018 4:58 [...] 102 g/m2 OTHER OUTSIDE LAB AV index (beaver) 0.35 OTHER OUTSIDE LAB LVOT area 3.46 [...] (09/01/2018 4:06 PM CDT) PATHOLOGY REPORT [facility] [employer] LAB RESULTS [employer] [email or web address] Parminder Tristan MD, Director of Flow Cytometry Laboratory Department of Pathology and Laboratory Medicine [address] [place] [id number] Surgical Pathology Office:[phone] :[phone] FLOW CYTOMETRY REPORT NAME: CUCO GILBERT SURG PATH #: [id number] MR #: [id number] SPECIMEN CLASS: LC BILLING #: [id number] ALT ID #:LOCATION: [id number] DATE OF PROCEDURE: 09/01/2018 AGE:73 SEX: M DATE RECEIVED: 09/01/2018 : 1945TIME RECEIVED:18:20 PHYSICIAN: JE CURRAN MD DATE OF REPORT: 09/04/2018 COPY TO: MD RUDOLPH ANDERSON DATE OF PRINTIN09/04/2018 Material Received: A: [...] Cells): CD56=14 Miscellaneous Markers (% Positive Cells): [id number] Cell Viability (%): 99 Number of Cells Analyzed:10,000 Total Number of Markers: 7 Summary of Marker Combinations: 01/03//4/45/56/8 This test was developed and its performance characteristics determined by the [facility] Flow Cytometry Laboratory.It has not been cleared or approved by the U.S. Food and Drug Administration (FDA).The FDA has determined that such clearance or approval is not necessary. Performing Organization Address City/[facility]/Zipcode Phone Number LAB RESULTS * GRAM STAIN (09/01/2018 4:06 PM CDT) Battery Name GRAM STAIN [facility] Specimen Description BRONCHIAL ALVEOLAR LAVAGE, RML [facility] Special Requests NONE [facility] Gram Stain FEW [facility] NEUTROPHILS NO ORGANISMS SEEN Report Status FINAL [facility] 09/01/2018 Specimen Bronchial Alveolar Lavage,RML Performing Organization Address City/[facility]/Zipcode Phone Number [facility] [address] [place] [address] * LEUKEMIA/LYMPHOMA PANEL FLUID/TISSUE (09/01/2018 4:06 PM CDT) Leuk/Lymph Interpretation SEE PATHOLOGY REPORT [facility] Specimen/LLM BRONCHIAL ALVEOLAR LAVAGE [facility] Specimen Bronchial Alveolar Lavage Performing Organization Address [facility]/Zipcode Phone Number [facility] [address] [place] [address] * CELL COUNT W/DIFF-FLUIDS (09/01/2018 4:06 PM CDT) White Blood Cells,Fluid 345 /UL [facility] Red Blood Cells,Fluid 7,600 /UL [facility] Segmented Neutrophils, 68 % [facility] Fluid Lymphocytes,Fluid 7 % [facility] Monocyte/Histo,Fluid 24 % [facility] Eosinophils, Fluid 1 % [facility] Fluid Source BRONCHIAL ALVEOLAR LAVAGE [facility] Pathology ACUTE AND CHRONIC INFLAMMATION [facility] Interpretation,Fluid HEMORRHAGIC FLUID Pathologist Signature INTERPRETED BY KLAUS HARRY M.D. [facility] By the PATH SIGNATURE ABOVE, I attest that I have personally formulated the final interpretation expressed in this report and that the above diagnosis is based upon my examination of the slides and/or other material indicated in this report. Specimen Fluid - Bronchial Alveolar Lavage Performing Organization Address [facility] Centercode Phone Number [facility] [address] [place] [address] * RVP VIRAL PANEL PCR (09/01/2018 4:06 PM CDT) Specimen Source BRONCHIAL ALVEOLAR LAVAGE [facility] MAIN [...] Specimen Bronchial Alveolar Lavage Performing Organization Address [facility] Centercode Phone Number MAIN LAB [address] [place] [address] * [facility] JIROVECI QUANT PCR (09/01/2018 4:06 PM CDT) [facility] Jiroveci BAL PCR Not Detected REFERENCE LAB Quant Reference range: Not Detected Unit: copies/mL . Assay Range: 84 copies/mL to 1.00E+08 copies/mL . The limit of quantitation (LOQ) is 84 copies/mL. Pneumocystis jiroveci DNA detected below the LOQ will be reported as Detected:<84 copies/mL. . This test was developed and its performance characteristics determined by [employer]. It has not been cleared or approved by the U.S. Food and Drug Administration. Results should be used in conjunction with clinical findings, and should not form the sole basis for a diagnosis or treatment decision. Testing Performed At: [employer] [address] Guillaume [id number] CLIA ID: [id number] Specimen Bronchial Washing RML Performing Organization Address City/State/Zipcode Phone Number REFERENCE LAB REFERENCE LAB See results for address. * ASPERGILLUS GALACTOMANN (09/01/2018 4:06 PM CDT) [...] Aspergillus Galactomannan EIA is a product of [employer] and is FDA approved for in vitro diagnostic use. Testing Performed At: [employer] Dexteranny Gloster [facility] CLIA ID: [id number] Specimen Bronchial Washing RML Performing Organization Address City/[facility]/Zipcode Phone Number REFERENCE LAB REFERENCE LAB See results for address. * HERPES SIMPLEX PCR - NON-BLOOD (09/01/2018 4:06 PM CDT) Specimen, Herpes BRONCHIAL ALVEOLAR LAVAGE MAIN LAB Herpes Simplex PCR HSV 1 and 2 NOT DETECTED HSVND-HSV 1 and 2 NOT MAIN LAB Comment: DETECTED Zecco HSV 1&2 Assay is a qualitative real-time PCR test for the direct detection and differentiation of HSV 1 and 2 DNA. This assay is FDA approved for testing cutaneous or mucocutaneous lesions from symptomatic patients. Performance on modifications of this test as well as other specimen types has been validated by the Department of Pathology and Laboratory Medicine at the [facility]. Specimen Bronchial Alveolar Lavage Performing Organization Address [facility] Centercode Phone Number MAIN LAB [address] [place] [address] * CMV QUANT PCR-FLUID (09/01/2018 4:06 PM CDT) Specimen, CMV BRONCHIAL ALVEOLAR LAVAGE MAIN LAB CMV by PCR-fluid CMV DNA NOT DETECTED CMVND-CMV DNA NOT [facility] DETECTED CMV Comment-Fluid This assay is an off label use [facility] of the [employer] RealTime Assay for detection of CMV in fluids and has not been approved by the US Food and Drug Administration. The performance characteristics were determined by the [facility].The lower limit of detection is 50IU/mL. Specimen Fluid - Bronchial Alveolar Lavage Performing Organization Address [facility]/Zipcode Phone Number MAIN LAB [address] [place] [address] * CULTURE-FUNGAL,OTHER (09/01/2018 4:06 PM CDT) Battery Name FUNGUS CULTURE [facility] Specimen Description BRONCHIAL ALVEOLAR LAVAGE, RML [facility] Special Requests NONE [facility] Culture Light growth MAIN LAB BRISEIDA GLABRATA Report Status FINAL MAIN LAB 09/19/2018 Specimen Bronchial Alveolar Lavage,RML Performing Organization Address [facility] Centercode Phone Number [facility] MA[facility] [address] [place] [address] * CULTURE-TB (AFB) (09/01/2018 4:06 PM CDT) Battery Name AFB CULTURE [facility] Specimen Description BRONCHIAL ALVEOLAR LAVAGE, RML [facility] Special Requests NONE [facility] Acid Fast Stain NO ACID FAST BACILLI SEEN [facility] Culture NO GROWTH OF MYCOBACTERIA AT 6 MAIN LAB WEEKS Report Status FINAL [facility] 10/23/2018 Specimen Bronchial Alveolar Lavage,RML Performing Organization Address City/[facility] Centercode Phone Number [facility] [address] [place] [address] * CULTURE-RESP,LOWER W/SENSITIVITY (09/01/2018 4:06 PM CDT) Battery Name LOWER RESP CULTURE MAIN LAB Specimen Description BRONCHIAL ALVEOLAR LAVAGE, RML [facility] Special Requests NONE MAIN LAB Direct Gram Stain FEW MAIN LAB NEUTROPHILS NO ORGANISMS SEEN Culture One colony MAIN LAB KLEBSIELLA PNEUMONIAE COMPLEX See susceptibility on duplicate isolate Report Status FINAL MAIN LAB 09/04/2018 Specimen Bronchial Alveolar Lavage,RML Performing Organization Address [facility] Centercode Phone Number [facility] [address] [place] [address] * BLOOD GASES, ARTERIAL (09/01/2018 3:33 PM CDT) pH-Arterial 7.29 (L) 7.35 - 7.45 MAIN LAB pCO2-Arterial 48 (H) 35 - 45 MMHG [facility] MAIN [facility] pO2-Arterial 146 (H) 80 - 100 MMHG MAIN LAB Base Deficit-Arterial 4.3 MMOL/L MAIN LAB O2 Sat-Arterial 99.0 95 - 99 % MAIN LAB Kyvcqbhwqmv-LPP-Epc 20.9 (L) 21 - 28 MMOL/L MAIN LAB Specimen Blood, arterial - Blood Performing Organization Address City/[facility] Centercode Phone Number MAIN LAB [address] [place] [address] * PREPARE PLASMA (FFP) (09/01/2018 3:14 PM CDT) Units Ordered 1 MAIN LAB Unit Number [id number] [facility] Blood Component Type APHERESIS PLASMA THAWED [facility] Unit Division 0 MAIN LAB Status OF Unit TRANSFUSED MAIN LAB Transfusion Status OK TO TRANSFUSE MAIN LAB Specimen Other (Specify) Performing Organization Address [facility] Centercode Phone Number MAIN LAB [address] [place] [address] * BLOOD GASES, CENTRAL VENOUS (09/01/2018 2:35 PM CDT) PH-Central Venous 7.25 (L) 7.30 - 7.40 MAIN LAB PCO2-Central Venous 59 >40 MMHG MAIN LAB PO2-Central Venous 43 40 - 50 MMHG MAIN LAB Base Deficit-Central 3.0 MMOL/L MAIN LAB Venous O2 Sat (Calc)-Central 72.5 65 - 75 % MAIN LAB Venous Bicarb-Central Venous 21.4 MMOL/L MAIN LAB Specimen Blood Performing Organization Address [facility] Centercode Phone Number MAIN LAB [address] [place] [address] * TEG WITH KAOLIN (09/01/2018 2:26 PM CDT) MA Kaolin 64.5 >49.9 MM REFERENCE LAB R Kaolin 7.7 <9.1 MIN REFERENCE LAB RK Kaolin 9.6 <12.1 MIN REFERENCE LAB K Kaolin 1.9 <3.1 MIN REFERENCE LAB Angle Kaolin 63.8 >54.9 DEG REFERENCE LAB Lysis30 0.0 <8.1 % REFERENCE LAB Specimen Blood Performing Organization Address [facility] Centercode Phone Number REFERENCE LAB REFERENCE LAB See results for address. * CULTURE-BLOOD W/SENSITIVITY (09/01/2018 2:26 PM CDT) Battery Name BLOOD CULTURE MAIN LAB Specimen Description BLOOD MAIN LAB LEFT ART LINE Special Requests NONE MAIN LAB Culture NO GROWTH 5 DAYS MAIN LAB Report Status FINAL MAIN LAB 09/07/2018 Specimen Blood Performing Organization Address City/[facility]/Zipcode Phone Number MAIN LAB [address] [place] [address] * CULTURE-BLOOD W/SENSITIVITY (09/01/2018 2:23 PM CDT) Battery Name BLOOD CULTURE MAIN LAB Specimen Description BLOOD MAIN LAB RIGHT FA Special Requests NONE MAIN LAB Culture NO GROWTH 5 DAYS MAIN LAB Report Status FINAL MAIN LAB 09/07/2018 Specimen Blood Performing Organization Address [facility]/Zipcode Phone Number MAIN LAB [address] [place] [address] * RVP VIRAL PANEL PCR (09/01/2018 2:11 PM CDT) Specimen Source NASOPHARYNGEAL SWAB [facility] Adenovirus NOT DETECTED [facility] [...] Pneumoniae NOT DETECTED [facility] Specimen Nasal Wash Performing Organization Address City/State/Zipcode Phone Number [facility] [address] [place] [phone] * CHEST SINGLE VIEW (09/01/2018 1:50 PM [...] diaphragm, with the tip out of the sxpas-ow-ihrl. A right PICC is in place, with [...] diaphragm, with the tip out of the vwnlx-hm-gkbk. A right PICC is in place, with [...] on 09/01/2018 2:06 PM. Performing Organization Address [facility] Phone Number RAD RESULTS * POC GLUCOSE (09/01/2018 1:48 PM CDT) Glucose, POC 218 (H) 70 - 100 MG/DL [facility] MAIN LAB Performing Organization Address [facility] Phone Number [facility] [address] [place] [address] * CMV QUANT PCR-BLOOD (09/01/2018 1:45 PM CDT) IU/mL CMV Blood <50 IU/mL [facility] The test method detects and quantitates CMV DNA using the Thomas RealTime assay, and is approved by the FDA for monitoring hematopoietic stem cell transplant patients who are undergoing anti-CMV therapy.Please correlate results with the clinical status of the patient. LOG10 CMV <1.7 [facility] MAIN LAB CMV DNA Quant PCR CMV DNA NOT DETECTED CMVND-CMV DNA NOT [facility] MAIN LAB DETECTED [IU]/mL Performing Organization Address [facility] Phone Number [facility] MAIN LAB [address] [place] [address] * VANCOMYCIN TIMED LEVEL (09/01/2018 1:45 PM CDT) Vancomycin Random 8.4 MCG/ML [facility] MAIN LAB Performing Organization Address [facility] Phone Number [facility] MAIN LAB [address] [place] [address] * TSH WITH FREE T4 REFLEX (09/01/2018 1:45 PM CDT) TSH 0.840 0.35 - 5.00 MCU/ML [facility] MAIN [facility] Performing Organization Address City/[facility] Centercode Phone Number [facility] [address] [place] [address] * TROPONIN-I (09/01/2018 1:45 PM CDT) Troponin-I 0.12 (H) 0.0 - 0.05 NG/ML [facility]IN [facility] Performing Organization Address City/[facility] Centercode Phone Number [facility] [address] [place] [address] * PROCALCITONIN (09/01/2018 1:45 PM CDT) Procalcitonin 4.25 (H) <0.10 NG/ML [facility]IN [facility] Performing Organization Address [facility] Centercode Phone Number MAIN LAB [address] [place] [address] * PHOSPHORUS (09/01/2018 1:45 PM CDT) Phosphorus 4.5Comment: NOTE NEW REFERENCE 2.0 - 4.5 MG/DL [facility] MAIN LAB RANGES Performing Organization Address [facility] Centercode Phone Number MAIN LAB [address] [place] [phone] * MAGNESIUM (09/01/2018 1:45 PM CDT) Magnesium 1.7 1.6 - 2.6 mg/dL [facility]IN [facility] Performing Organization Address [facility] Centercoma Phone Number MAIN LAB [address] [place] [address] * LDH-LACTATE DEHYDROGENASE (09/01/2018 1:45 PM CDT) Lactate Dehydrogenase 194 100 - 210 U/L [facility]IN [facility] Performing Organization Address City/[facility] Centercode Phone Number MAIN LAB [address] [place] [phone] * COMPREHENSIVE METABOLIC PANEL (09/01/2018 1:45 PM CDT) Sodium 135 (L) 137 - 147 MMOL/L [facility] Potassium 4.4 3.5 - 5.1 MMOL/L [facility] Chloride 103 98 - 110 MMOL/L [facility] Glucose 222 (H) 70 - 100 MG/DL MAIN LAB Blood Urea Nitrogen 49 (H) 7 - 25 MG/DL MAIN LAB Creatinine 2.08 (H) 0.4 - 1.24 MG/DL MAIN LAB Calcium 8.9 8.5 - 10.6 MG/DL MAIN LAB Total Protein 5.5 (L) 6.0 - 8.0 G/DL [facility] Total Bilirubin 1.1 0.3 - 1.2 MG/DL MAIN LAB Albumin 3.0 (L) 3.5 - 5.0 G/DL MAIN LAB Alk Phosphatase 64 25 - 110 U/L MAIN LAB AST (SGOT) 7 7 - 40 U/L [facility] CO2 23 21 - 30 MMOL/L MAIN LAB ALT (SGPT) 4 (L) 7 - 56 U/L [facility] Anion Gap 9 3 - 12 MAIN LAB eGFR Non 31 (L) >60 mL/min MAIN LAB Comment: The eGFR is not validated for use in drug dosing adjustments.Continue to use estimated creatinine clearance per dosing reference text.Please contact the Clinical Pharmacist for questions. eGFR 38 (L) >60 mL/min [facility] Comment: The eGFR is not validated for use in drug dosing adjustments.Continue to use estimated creatinine clearance per dosing reference text.Please contact the Clinical Pharmacist for questions. Performing Organization Address City/State/Zipcode Phone Number [facility] [address] [place] [address] * TYPE & CROSSMATCH (09/01/2018 1:45 PM CDT) Units Ordered 0 [facility] Crossmatch Expires 09/04/2018 MAIN LAB Record Check FOUND MAIN LAB ABO/RH(D) A POS MAIN LAB Antibody Screen NEG [facility] Electronic Crossmatch YES [facility] Specimen Blood Performing Organization Address City/[facility]/Zipcode Phone Number [facility] [address] [place] [address] * PERIPHERAL SMEAR (09/01/2018 1:45 PM CDT) Peripheral Smear Microcytic, hypochromic red MAIN LAB cells. Consider iron deficiency anemia, anemia of chronic disease, thalassemia, and sideroblastic anemia. GRANULOCYTOSIS WITH LEFT SHIFT. ABSOLUTE LYMPHOCYTOPENIA. PLATELETS APPEAR NORMAL IN NUMBER AND MORPHOLOGY. Pathologist Signature INTERPRETED BY KLAUS HARRY M.D. [facility] By the PATH SIGNATURE ABOVE, I attest that I have personally formulated the final interpretation expressed in this report and that the above diagnosis is based upon my examination of the slides and/or other material indicated in this report. Specimen Blood Performing Organization Address City/State/Zipcode Phone Number [facility] [address] [place] [address] * FIBRINOGEN (09/01/2018 1:45 PM CDT) Fibrinogen 481 (H) 200 - 400 MG/DL [facility] Specimen Blood Performing Organization Address City/[facility]/Zipcode Phone Number [facility] [address] [place] [address] * ASPERGILLUS (GALACTOMANNAN) AG (09/01/2018 1:45 PM [...] Aspergillus Galactomannan EIA is a product of [employer] and is FDA approved for in vitro diagnostic use. Testing Performed At: [employer] [address] [place] [address] CLIA ID: [id number] Specimen Blood Performing Organization Address City/State/Zipcode Phone Number REFERENCE LAB REFERENCE LAB See results for address. * FUNGITELL (09/01/2018 1:45 PM CDT) [facility] (H) REFERENCE LAB Comment: Reference range: <80 Unit: pg/mL . Interpretation: The Fungitell assay does not detect certain fungal species such as the genus Cryptococcus (Ezequiel et al. 1991) which produces very low levels of (1-3)-Vjrt-R-Gunzsy. The assay also does not detect the Zygomycetes such as Absidia, Mucor and Rhizopus (Nolan et al. 1994) which are not known to produce (1-3)-Awxk-T-Waxtxu. In addition, the yeast phase of Blastomyces dermatitidis produces little (1-3)-Gjzi-H-Khdxzw and may not be detected by the [...] characteristics for these modifications were determined by [employer]. . If sample result is greater than 500 pg/mL, physician may order a titer of the sample. Please contact [employer] if you would like to order a retest of this sample to obtain an actual value. Samples are held for 1 week after initial testing date. Testing Performed At: [employer] [address] Guillaume [id number] CLIA ID: [id number] Specimen Blood Performing Organization Address City/[facility]/Zipcode Phone Number REFERENCE LAB REFERENCE LAB See results for address. * TACROLIMUS LEVEL([id number]) (09/01/2018 1:45 PM CDT) Tacrolimus 3.8 2 - 15 NG/ML MAIN LAB Comment: Target concentrations vary by type of transplant, patient response, concomitant immunosuppression and post-transplant time interval.Test was performed on whole blood using oragenicsS reagent and a Kristy Spotplex AU analyzer. Specimen Blood Performing Organization Address [facility] Centercode Phone Number MAIN LAB [address] [place] [address] * BNP (B-TYPE NATRIURETIC PEPTI) (09/01/2018 1:45 PM CDT) B Type Natriuretic 377.0 (H) 0 - 100 PG/ML MAIN LAB Peptide Specimen Blood Performing Organization Address [facility] Centercode Phone Number [facility] MA[facility] [address] [place] [address] * IONIZED CALCIUM (09/01/2018 1:45 PM CDT) Ionized Calcium 1.26 1.0 - 1.3 MMOL/L MAIN LAB Specimen Blood Performing Organization Address [facility] Centercode Phone Number MAIN LAB [address] [place] [address] * LACTIC ACID (BG - RAPID LACTATE) (09/01/2018 1:45 PM CDT) Lactic Acid,BG 1.8 0.5 - 2.0 MMOL/L [facility] MAIN [facility] Specimen Blood Performing Organization Address [facility] Centercode Phone Number [facility] MA[facility] [address] [place] [address] * BLOOD GASES, ARTERIAL (09/01/2018 1:45 PM CDT) pH-Arterial 7.28 (L) 7.35 - 7.45 [facility] MAIN [facility] pCO2-Arterial 50 (H) 35 - 45 MMHG [facility] MAIN [facility] pO2-Arterial 113 (H) 80 - 100 MMHG MAIN LAB Base Deficit-Arterial 3.8 MMOL/L [facility] O2 Sat-Arterial 98.0 95 - 99 % [facility] Bhbnzoikiyf-OZT-Hat 21.3 21 - 28 MMOL/L [facility] Specimen Blood, arterial - Blood Performing Organization Address [facility] Centercode Phone Number [facility] [address] [place] [address] * PROTIME INR (PT) (09/01/2018 1:45 PM CDT) INR 8.2 (HH) 0.8 - 1.2 [facility] Comment: Critical Result INR:Called to REILLY Rene at: 14:32:52 by: LJ Read back by: REILLY Rene Specimen Blood Performing Organization Address [facility]/Zipcode Phone Number [facility] [address] [place] [address] * CBC AND DIFF (09/01/2018 1:45 PM CDT) White Blood Cells 20.0 (H) 4.5 - 11.0 K/UL [facility] RBC 5.48 4.4 - 5.5 M/UL [facility] Hemoglobin 13.4 (L) 13.5 - 16.5 GM/DL [facility] Hematocrit 42.3 40 - 50 % [facility] MCV 77.1 (L) 80 - 100 FL [facility] MCH 24.4 (L) 26 - 34 PG [facility] MCHC 31.6 (L) 32.0 - 36.0 G/DL [facility] RDW 18.9 (H) 11 - 15 % [facility] MAIN [facility] Platelet Count 223 150 - 400 K/UL MAIN LAB MPV 7.7 7 - 11 FL [facility] MAIN [facility] Neutrophils 95 (H) 41 - 77 % [facility] MAIN [facility] Lymphocytes 2 (L) 24 - 44 % [facility] MA[facility] Monocytes 3 (L) 4 - 12 % [facility] MAIN [facility] Eosinophils 0 0 - 5 % [facility] Basophils 0 0 - 2 % [facility] MA[facility] Absolute Neutrophil Count 18.90 (H) 1.8 - 7.0 K/UL [facility] MAIN [facility] Absolute Lymph Count 0.40 (L) 1.0 - 4.8 K/UL [facility]IN [facility] Absolute Monocyte Count 0.60 0 - 0.80 K/UL [facility]IN [facility] Absolute Eosinophil Count 0.00 0 - 0.45 K/UL [facility] Absolute Basophil Count 0.00 0 - 0.20 K/UL [facility]IN [facility] Specimen Blood Performing Organization Address City/[facility] Cent[facility]ode Phone Number [facility] MA[facility] [address] [place] [address] * CULTURE-URINE W/SENSITIVITY (09/01/2018 1:35 PM CDT) Battery Name URINE CULTURE [facility] MAIN LAB Specimen Description URINE [facility] MAIN LAB Special Requests NONE [facility] MAIN LAB Culture NO GROWTH [facility] MAIN LAB Report Status FINAL [facility] MAIN [facility] 09/03/2018 Specimen Urine - Urine Performing Organization Address City/[facility] Centercode Phone Number [facility] [address] [place] [address] * STREPTOCOCCUS PNEUMO AG, URINE (09/01/2018 1:35 PM CDT) Battery Name STREP PNEUMO AG, UR [facility] Specimen Description URINE [facility] MAIN LAB Special Requests NONE [facility] MAIN LAB Antigen NEGATIVE [facility] MAIN LAB Report Status FINAL [facility] 09/01/2018 Specimen Urine Performing Organization Address [facility] Phone Number [facility] [address] [place] [address] * LEGIONELLA ANTIGEN URINE,RAN (09/01/2018 1:35 PM CDT) Battery Name LEGIONELLA URINE ANTIGEN [facility] MAIN LAB Specimen Description URINE [facility] MAIN LAB Special Requests NONE [facility] Antigen NEGATIVE [facility] Report Status FINAL [facility]IN [facility] 09/01/2018 Specimen Urine - Urine Performing Organization Address [facility] Phone Number [facility] [address] [place] [address] * UA REFLEX CULTURE LABEL (09/01/2018 1:35 PM CDT) UA Reflex Culture LAB LABEL [facility] MAIN [facility] Specimen Urine Performing Organization Address [facility] Phone Number [facility] [address] [place] [address] * URINALYSIS MICROSCOPIC REFLEX TO CULTURE (09/01/2018 [...] [facility] MAIN LAB Bacteria,UA FEW (A) NEG-NEG MAIN LAB Squamous Epithelial Cells 0-2 0 - 5 [facility]IN [facility] Specimen Urine Performing Organization Address [facility]ode Phone Number [facility] [address] [place] [address] * URINALYSIS DIPSTICK REFLEX TO CULTURE (09/01/2018 1:35 PM CDT) Color,UA YELLOW [facility] Turbidity,UA CLEAR CLEAR-CLEAR [facility]IN [facility] Specific [place]ma-Urine 1.019 1.003 - 1.035 [facility] MAIN [facility] pH,UA 5.0 5.0 - 8.0 [facility] Protein,UA NEG NEG-NEG MAIN LAB Glucose,UA NEG NEG-NEG [facility] Ketones,UA NEG NEG-NEG MAIN LAB Bilirubin,UA NEG NEG-NEG MAIN LAB Blood,UA 2+ (A) NEG-NEG MAIN LAB Urobilinogen,UA NORMAL NORM-NORMAL [facility] Nitrite,UA NEG NEG-NEG [facility]IN [facility] Leukocytes,UA TRACE (A) NEG-NEG [facility]IN [facility] Urine Ascorbic Acid, UA NEG NEG-NEG MAIN LAB Specimen Urine Performing Organization Address [facility] Phone Number MAIN LAB [address] [place] [address] * GRAM STAIN (09/01/2018 1:20 PM CDT) Battery Name GRAM STAIN [facility] MAIN [facility] Specimen Description TRACHEAL ASPIRATE MAIN LAB Special Requests NONE MAIN LAB Gram Stain GREATER THAN 25/LPF MAIN LAB NEUTROPHILS LESS THAN 10/LPF SQUAMOUS EPITHELIAL CELLS FEW BUDDING YEAST FEW GRAM POSITIVE COCCI Report Status FINAL MAIN LAB 09/01/2018 Specimen Tracheal Aspirate Performing Organization Address [facility] Phone Number [facility] [address] [place] [address] * CULTURE-RESP,LOWER W/SENSITIVITY (09/01/2018 1:20 PM CDT) Battery Name LOWER RESP CULTURE [facility] MAIN LAB Specimen Description TRACHEAL ASPIRATE MAIN LAB Special Requests NONE MAIN LAB Direct Gram Stain GREATER THAN 25/LPF MAIN LAB NEUTROPHILS LESS THAN 10/LPF SQUAMOUS EPITHELIAL CELLS FEW BUDDING YEAST RARE GRAM POSITIVE COCCI Culture Light growth MAIN LAB KLEBSIELLA PNEUMONIAE COMPLEX (A) Report Status FINAL MAIN LAB 09/04/2018 Organism ID Light growth MAIN LAB KLEBSIELLA PNEUMONIAE COMPLEX Specimen Tracheal Aspirate Antibiotic Method Susceptibility Organism Amikacin SELIN (MCG/ML) INTERPRETATION <=8 SUSCEPTIBLE: Susceptible Light growth klebsiella pneumoniae complex Cefazolin SELIN (MCG/ML) INTERPRETATION 2 SUSCEPTIBLE: Susceptible Light growth klebsiella pneumoniae complex Ceftriaxone SELIN (MCG/ML) INTERPRETATION <=1 SUSCEPTIBLE: Susceptible Light growth klebsiella pneumoniae complex Gentamicin SELIN (MCG/ML) INTERPRETATION <=2 SUSCEPTIBLE: Susceptible Light growth klebsiella pneumoniae complex Ertapenem SELIN (MCG/ML) INTERPRETATION <=0.25 SUSCEPTIBLE: Susceptible Light growth klebsiella pneumoniae complex Levofloxacin SELIN (MCG/ML) INTERPRETATION <=1 SUSCEPTIBLE: Susceptible Light growth klebsiella pneumoniae complex Amoxicil/Clav Acid SELIN (MCG/ML) INTERPRETATION <=4/2 SUSCEPTIBLE: Susceptible Light growth klebsiella pneumoniae complex Piperacil/Tazobactam SELIN (MCG/ML) INTERPRETATION 4/4 SUSCEPTIBLE: Susceptible Light growth klebsiella pneumoniae complex Trimethsulfa SELIN (MCG/ML) INTERPRETATION <=0.5/9.5 SUSCEPTIBLE: Susceptible Light growth klebsiella pneumoniae complex Method SELIN (MCG/ML) INTERPRETATION SELIN (MCG/ML) INTERPRETATION Light growth klebsiella pneumoniae complex Performing Organization Address City/State/Zipcode Phone Number [facility] [address] [place] [address] * NON-MOBILE UI DESIGNER CYTOLOGY (BODY FLUIDS/TISSUE) (09/01/2018 11:32 AM CDT) Cytology [facility] [email or web address] Department of Pathology and Laboratory Medicine [address] [place] [id number] Surgical Pathology Office:[phone] :[phone] CYTOLOGY REPORT NAME: CUCO GILBERT CYTOLOGY #: [id number] MR #: [id number] ALT ID #: BILLING #: [id number] LOCATION: 63 DATE OF PROCEDURE: 09/01/2018 AGE: 73 SEX: M DATE RECEIVED: 09/04/2018 : 1945TIME RECEIVED:11:32 PHYSICIAN: JE CURRAN MD DATE OF REPORT: 09/05/2018 COPY TO: VLADIMIR MCKINNEYEmelina BYRNE MD DATE OF PRINTIN09/05/2018 Material Received: [...] Please also see concurrent flow cytometry report ([id number]). Attestation: By this signature, I attest that I have personally formulated the final interpretation expressed in this report and that the above diagnosis is based upon my examination of the slides and/or other material indicated in this report. +++Electronically Signed Out By+++ jacob/09/05/2018 Interpreted by: MD Toy Singh MD Resident Cytology Performing Organization Address City/State/Zipcode Phone Number [facility] RESULTS in this encounter Visit Diagnoses Diagnosis Acute respiratory failure with hypoxia and hypercapnia (HCC) - Primary Acute on chronic systolic heart failure (HCC) Acute on chronic systolic heart failure Hemoptysis Hemoptysis, unspecified Pneumonia due to infectious organism, unspecified laterality, unspecified part of lung Septic shock (HCC) Unspecified septicemia Supratherapeutic INR Abnormal coagulation profile Oropharyngeal dysphagia Dysphagia, oropharyngeal phase 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, with long-term current use of insulin (HCC) Atrial fibrillation with rapid ventricular response (HCC) Atrial fibrillation Delirium Other alteration of consciousness Status post liver transplant (HCC) Liver replaced by transplant Pneumonia Pneumonia, organism unspecified DM (diabetes mellitus) (HCC) Type II or unspecified type diabetes mellitus without mention of complication , not stated as uncontrolled CKD (chronic kidney disease) Chronic kidney disease, unspecified Atrial fibrillation (HCC) Atrial fibrillation Shock (HCC) Shock, unspecified in this encounter Administered Medications Action Date Dose Rate Site Medication Order MAR Action 09/07/2018 12:09 AM CDT 650 mg acetaminophen (TYLENOL) tablet 650 mg Given 650 mg, Oral, EVERY 6 HOURS PRN, Starting Tue09/01/18 at 1317, Until Lisa 09/07/18 at 1748, Pain non-opioid: may be used alone or in combination with opioid analgesia, TOTAL ACETAMINOPHEN DOSE NOT TO EXCEED 4GM DAILY, 650 mg Given 09/06/2018 4:43 PM CDT 650 mg Given 09/06/2018 10:41 AM CDT 09/02/2018 2:29 PM CDT 2.5 mg albuterol 0.5% (PROVENTIL; VENTOLIN) Given nebulizer solution 2.5 mg 2.5 mg, Inhalation, RT EVERY 4 HOURS AND PRN, First dose on Tue09/01/18 at 1600, Until Discontinued, ADMINISTERED BY RT, 2.5 mg Given 09/02/2018 9:30 AM CDT 2.5 mg Given 09/02/2018 4:32 AM CDT 09/02/2018 11:37 PM CDT amitriptyline/gabapentin/emu oil(#) Given 4/4/10 % topical cream Topical, EVERY 8 HOURS, First dose on 09/02/18 at 2315, Until Discontinued, Apply to feet as needed, 09/06/2018 3:34 AM CDT amitriptyline/gabapentin/emu oil(#) Given 4/4/10 % topical cream Topical, EVERY 8 HOURS PRN, Starting 09/03/18 at 0730, Until Lisa 09/07/18 at 1748, Other..., Apply to feet as needed, Given 09/04/2018 1:09 PM CDT Given 09/03/2018 8:15 AM CDT 09/07/2018 1:36 PM CDT 875 mg amoxicillin/K clavulanate (AUGMENTIN) Given tablet 875 mg 875 mg, Oral, TWICE DAILY WITH MEALS, First dose on Tue09/05/18 at 1115, Until Discontinued, NURSING: Please educate patient and document: Give with food., 875 mg Given 09/07/2018 8:22 AM CDT 875 mg Given 09/06/2018 5:48 PM CDT 09/06/2018 9:17 AM CDT 81 mg aspirin chewable tablet 81 mg Given 81 mg, Oral, DAILY, First dose on Tue09/01/18 at 1330, Until Discontinued 81 mg Given 09/05/2018 8:43 AM CDT 81 mg Given 09/04/2018 8:06 AM CDT atorvastatin (LIPITOR) tablet 40 mg 40 mg, Oral, AT BEDTIME DAILY, First dose on Tue09/07/18 at 2100, Until Discontinued 09/03/2018 2:17 PM CDT 500 mg 250 mL/hr azithromycin (ZITHROMAX) 500 mg in Given - New sodium chloride 0.9% (NS) IVPB Bag 500 mg, Intravenous, 250 mL, Administer over 60 Minutes, EVERY 24 HOURS, First dose on Tue09/01/18 at 1445, Until Discontinued 500 mg 250 mL/hr Given - New Bag 09/02/2018 2:13 PM CDT 500 mg 250 mL/hr Given - New Bag 09/01/2018 3:22 PM CDT 09/05/2018 1:45 PM CDT 10 mL barium sulfate 40 % (VARIBAR HONEY) oral Given suspension 10 mL 10 mL, Oral, ONCE, 1 dose, 09/05/18 at 1400, GI Procedure Area Only 09/05/2018 1:45 PM CDT 10 mL barium sulfate 40 % (VARIBAR HONEY) oral Given suspension 10 mL 10 mL, Oral, ONCE, 1 dose, 09/05/18 at 1400, GI Procedure Area Only 09/05/2018 1:45 PM CDT 10 mL barium sulfate 40 % (VARIBAR PUDDING) Given oral paste 10 mL 10 mL, Oral, ONCE, 1 dose, 09/05/18 at 1400, GI Procedure Area Only 09/05/2018 1:45 PM CDT 60 mL barium sulfate 40 % (VARIBAR THIN Given LIQUID) oral powder for suspension 60 mL 60 mL, Oral, ONCE, 1 dose, 09/05/18 at 1400, Mixing Instructions: 1. Gently shake the barium sulfate to loosen the powder. 2. Remove Cap. Add water to the 40% (w/v) line and replace the cap. 3. Invert bottle and tap with fingers to mix the powder into the water. 4. Shake vigorously for 30 seconds. Let stand for 5 minutes. 5. Suspension has hydrated and settled. Re-fill with water to the 40% line and replace cap. 6. Re-shake thoroughly. Product is now ready for use., GI Procedure Area Only 09/04/2018 10:16 AM CDT 1 g cefTRIAXone (ROCEPHIN) IVP 1 g Given 1 g, Intravenous, EVERY 24 HOURS, First dose on Tue09/04/18 at 1030, Until Discontinued, INSTR: IV PUSH -- RECONSTITUTE EACH 1 GM WITH 10 MLS 0.9% NACL , 09/02/2018 8:42 AM CDT 15 mL chlorhexidine gluconate (PERIDEX) 0.12 % Given solution 15 mL 15 mL, SEE ADMIN INSTRUCTIONS, TWICE DAILY, First dose on Tue09/01/18 at 1330, Until Discontinued, In mechanically ventilated patient, apply with swab to entire oral cavity and artificial airway. Discontinue when patient is no longer ventilated. , 15 mL Given 09/01/2018 9:26 PM CDT 15 mL Given 09/01/2018 3:28 PM CDT 09/02/2018 10:33 PM CDT 0.6 mcg/kg/hr 17.8 mL/hr dexmedetomidine (PRECEDEX) 400 mcg in Dose/Rate sodium chloride 0.9% (NS) 100 mL IV Change infusion 0.2-1 mcg/kg/hr 118.4 kg (5.92-29.6 mL/hr, rounded to 5.9-29.6 mL/hr) 100 mL, at 5.9-29.6 mL/hr, Intravenous, TITRATE DIRECTED , Starting Tue09/01/18 at 1330, Until Tue09/04/18 at 0919, -Initiate at 0.2 mcg/kg/hr and maintain for 30 minutes -Titrate to keep: RASS of 0 to -2 a.) Titrate infusion in increments of 0.1 mcg/kg/hour at 5 minute intervals until goal sedation level achieved or maintenance exceeds 1.0 mcg/kg/hr b.) If HR < 60 or SBP < 90 mmHg hold for 10 minutes then restart at dose reduced by 0.3 mcg/kg/min c.) Notify physician for persistent hypotension (SBP < 90 mmHg) or bradycardia (HR < 60) over 15 minutes d.) For breakthrough agitation NOTIFY PHYSICIAN and consider bolus of 1 mcg/kg over 20 min if HR and BP are acceptable. e.) Notify physician if maintenance exceeds 1 mcg/kg/hr -Taper agent continuously to lowest effective dose to achieve desired level of sedation keeping patient calm and able to participate in care. , Std conc=4mcg/ml NOTE: For weight-based dosing, use patient dosing weight. NOTE: This is a HIGH ALERT Medication., 0.4 mcg/kg/hr 11.8 mL/hr Dose/Rate Change 09/02/2018 8:42 PM CDT 0.2 mcg/kg/hr 5.9 mL/hr Dose/Rate Change 09/02/2018 4:30 PM CDT 09/02/2018 5:50 AM CDT 50 mcg/hr 5 mL/hr fentaNYL (SUBLIMAZE) 1000 mcg/ NS 100 mL Dose/Rate IV infusion (std conc)(premade) Change 10-100 mcg/hr (1-10 mL/hr) 100 mL, at 1-10 mL/hr, Intravenous, TITRATE DIRECTED , Starting Tue09/01/18 at 1330, Until 09/02/18 at 1423, Initiate at 25 mcg/hr Titrate to keep Self Reporting Pain Score of <=4 or Observational Pain Score of <=2. Bolus 25 mcg (25-50 mcg) IV and/or increase infusion by 5-20 mcg/hr prn breakthrough pain. Recommend titrate every 15 minutes as needed. Std Conc=10mcg/mL. NOTE: This is a HIGH ALERT Medication., 70 mcg/hr 7 mL/hr Given - New Bag 09/02/2018 3:14 AM CDT 70 mcg/hr 7 mL/hr Dose/Rate Change 09/02/2018 3:13 AM CDT 09/07/2018 8:37 AM CDT 80 mg furosemide (LASIX) injection 80 mg Given 80 mg, Intravenous, ONCE, 1 dose, Lisa 09/07/18 at 0815, PROTECT FROM LIGHT, 09/06/2018 9:17 AM CDT 80 mg furosemide (LASIX) tablet 80 mg Given 80 mg, Oral, DAILY, First dose on 09/04/18 at 1030, Until Discontinued 80 mg Given 09/05/2018 8:43 AM CDT 80 mg Given 09/04/2018 10:18 AM CDT 09/07/2018 12:39 PM CDT 4 Units Arm, Left insulin aspart U-100 (NOVOLOG FLEXPEN) Given injection PEN 0-14 Units 0-14 Units, Subcutaneous, FIVE TIMES DAILY, First dose on Tue09/01/18 at 2200, Until Discontinued, -POC glucose 140-180mg/dL at administer 2 units insulin, at , * administer 0 units. -POC glucose 181-220mg/dL at , administer 4 units insulin, at , * administer 2 units. -POC glucose 221-260mg/dL at , , administer 6 units insulin, at , * administer 4 units. -POC glucose 261-300mg/dL at , administer 8 units insulin, at , * administer 6 units. -POC glucose 301-350mg/dL at , , administer 10 units insulin, at * administer 8 units. -POC glucose 351-400mg/dL at administer 12 units insulin, at , * administer 10 units. -POC glucose >400mg/dL at administer 14 units insulin, at * administer 12 units. *only if ordered 5x's daily For POCT glucose >350mg/dL give correction bolus and recheck POCT glucose in 2 hours. If POCT glucose at 2 hours >300mg/dL call physician for further orders. For patients who are not eating meals, continue to administer the appropriate correction factor. NOTE: This is a HIGH ALERT Medication., Dispense pens manually with initial order and then upon request. DO NOT uncheck "Do not dispense", 2 Units Left Arm Given 09/07/2018 8:20 AM CDT 2 Units Arm, Right Given 09/06/2018 9:37 PM CDT 09/06/2018 9:42 PM CDT 20 Units Abdomen:RLQ insulin glargine (LANTUS SOLOSTAR, Given BASAGLAR) injection PEN 20 Units 20 Units, Subcutaneous, AT BEDTIME DAILY, First dose on Tue09/06/18 at 2200, Until Discontinued, Continue if NPO. DO NOT mix with other insulins -- Do not mix with other insulins -- NOTE: This is a HIGH ALERT Medication., Dispense pens manually with initial order and then upon request. DO NOT uncheck "Do not dispense", 09/06/2018 9:18 AM CDT 10 Units Abdomen:LLQ insulin NPH (HUMULIN N KwikPen) Given injection PEN 10 Units 10 Units, Subcutaneous, TWICE DAILY, First dose on Tue09/01/18 at 2200, Until Discontinued, Continue if NPO. Do not mix with other insulins. NOTE: This is a HIGH ALERT Medication., Dispense pens manually with initial order and then upon request. DO NOT uncheck "Do not dispense", 10 Units Arm, Right Given 09/05/2018 9:26 PM CDT 10 Units Abdominal Tissue Given 09/05/2018 8:46 AM CDT 09/02/2018 2:29 PM CDT 0.5 mg ipratropium bromide (ATROVENT) 0.02 % Given nebulizer solution 0.5 mg 0.5 mg, Inhalation, RT EVERY 4 HOURS AND PRN, First dose on Tue09/01/18 at 1600, Until Discontinued, ADMINISTERED BY RT, 0.5 mg Given 09/02/2018 9:30 AM CDT 0.5 mg Given 09/02/2018 4:32 AM CDT 09/05/2018 8:43 AM CDT 1 patch Back lidocaine (LIDODERM) 5 % topical patch 1 Patch/Topica patch l Applied 1 patch, Topical, Administer over 12 Hours, DAILY, First dose on Tue09/02/18 at 1645, Until Discontinued, NURSING PLEASE NOTE: Apply patch ONCE DAILY to back and REMOVE after designated duration. Apply only to intact skin. Patch may be cut to fit affected area., 1 patch Back Patch/Topical Applied 09/04/2018 8:04 AM CDT 1 patch Back Patch/Topical Applied 09/03/2018 8:15 AM CDT 09/07/2018 8:24 AM CDT 5 mg lisinopril (PRINIVIL; ZESTRIL) tablet 5 Given mg 5 mg, Oral, DAILY, First dose on Tue09/05/18 at 1115, Until Discontinued 5 mg Given 09/06/2018 9:17 AM CDT 5 mg Given 09/05/2018 11:49 AM CDT 09/06/2018 3:40 PM CDT 2 mg loperamide (IMODIUM A-D) capsule 2 mg Given 2 mg, Oral, NEEDED, Starting Tue09/05/18 at 2055, Until Lisa 09/07/18 at 1748, Diarrhea, GIVE WITH EACH LOOSE STOOL; NOT TO EXCEED 16MG/24HRS, 2 mg Given 09/06/2018 9:55 AM CDT 2 mg Given 09/05/2018 10:42 PM CDT 09/03/2018 3:50 AM CDT 1 g 100 mL/hr magnesium sulfate 1 g/D5W 100 mL IVPB Given - New 1 g, Intravenous, 100 mL, Administer Bag over 1 Hours, ONCE, 1 dose, 09/03/18 at 0345, Each 1gm delivers 8.1 mEq Magnesium., 09/06/2018 9:34 AM CDT 1 g 100 mL/hr magnesium sulfate 1 g/D5W 100 mL IVPB Given - New 1 g, Intravenous, 100 mL, Administer Bag over 1 Hours, EVERY 1 HOUR FOR 3 DOSES, 3 doses, First dose on Tue09/06/18 at 0800, Last dose on Tue09/06/18 at 1000, Each 1gm delivers 8.1 mEq Magnesium., 1 g 100 mL/hr Given - New Bag 09/06/2018 9:33 AM CDT 1 g 100 mL/hr Given - New Bag 09/06/2018 9:18 AM CDT magnesium sulfate 1 g/D5W 100 mL IVPB 1 g, Intravenous, 100 mL, Administer over 1 Hours, NEEDED, Starting Tue09/06/18 at 0855, Until Lisa 09/07/18 at 1748, Other..., magnesium replacement (see Admin Instructions), If urine output < 30 mL/hr or SCr >2 mg/dL, check with physician prior to giving magnesium replacement. - For Serum Magnesium > 2.1 mg/dL, No replacement necessary. - For Serum Magnesium 1.8 - 2.0 mg/dL, give Magnesium Sulfate 2 grams IV over 2 hours. - For Serum Magnesium 1.6 - 1.7 mg/dL, give Magnesium Sulfate 3 grams IV over 3 hours. - For Serum Magnesium 1.3 - 1.5 mg/dL, give Magnesium Sulfate 4 grams IV over 4 hours. - For Serum Magnesium <=1.2 mg/dL, give Magnesium Sulfate 6 grams IV over 6 hours AND notify physician. Recheck serum magnesium level 2 hours after completion of appropriate replacement dose. Repeat this standing order x 1. Notify physician if serum magnesium < 2.1 mg/dL after two replacements. Infuse each 1gm Magnesium sulfate over 1 hour. Each 1 gm delivers 8.1 mEq Magnesium., 09/02/2018 8:41 PM CDT 3 mg melatonin tablet 3 mg Given 3 mg, Oral, AT BEDTIME DAILY, First dose on 09/02/18 at 2100, Until Discontinued 09/06/2018 9:32 PM CDT 5 mg melatonin tablet 5 mg Given 5 mg, Oral, AT BEDTIME DAILY, First dose on 09/03/18 at 2100, Until Discontinued 5 mg Given 09/05/2018 9:18 PM CDT 5 mg Given 09/04/2018 8:34 PM CDT 09/02/2018 12:28 PM CDT 5 mg metoprolol (LOPRESSOR) injection 5 mg Given 5 mg, Intravenous, ONCE, 1 dose, 09/02/18 at 1215, Hold for SBP<90 PROTECT FROM LIGHT, 09/03/2018 8:16 AM CDT 5 mg metoprolol (LOPRESSOR) injection 5 mg Given 5 mg, Intravenous, ONCE, 1 dose, 09/03/18 at 0745, Hold for heart rate < 60 bpm or systolic BP < 90 PROTECT FROM LIGHT, 09/04/2018 3:55 AM CDT 5 mg metoprolol (LOPRESSOR) injection 5 mg Given 5 mg, Intravenous, ONCE, 1 dose, 09/04/18 at 0400, PROTECT FROM LIGHT, 09/03/2018 8:11 PM CDT 12.5 mg metoprolol tartrate (LOPRESSOR) tablet Given 12.5 mg 12.5 mg, Oral, TWICE DAILY, First dose on 09/03/18 at 1245, Until Discontinued, Hold for heart rate < 60 bpm or systolic BP < 90, 12.5 mg Given 09/03/2018 12:28 PM CDT 09/04/2018 8:34 PM CDT 25 mg metoprolol tartrate (LOPRESSOR) tablet Given 25 mg 25 mg, Oral, TWICE DAILY, First dose on 09/04/18 at 0900, Until Discontinued, Hold for heart rate < 60 bpm or systolic BP < 90, 25 mg Given 09/04/2018 8:04 AM CDT 09/04/2018 10:17 AM CDT 25 mg metoprolol tartrate (LOPRESSOR) tablet Given 25 mg 25 mg, Oral, ONCE, 1 dose, 09/04/18 at 0930, Hold for {Ch, 09/06/2018 9:32 PM CDT 37.5 mg metoprolol tartrate (LOPRESSOR) tablet Given 37.5 mg 37.5 mg, Oral, TWICE DAILY, First dose on Tue09/05/18 at 0900, Until Discontinued, Hold for heart rate < 60 bpm or systolic BP < 90, 37.5 mg Given 09/06/2018 9:17 AM CDT 37.5 mg Given 09/05/2018 9:15 PM CDT 09/07/2018 8:24 AM CDT 100 mg metoprolol XL (TOPROL XL) tablet 100 mg Given 100 mg, Oral, DAILY, First dose on Tue09/07/18 at 0900, Until Discontinued, Hold for heart rate < 60 bpm or systolic BP < 90 tablets may be cut in half, DO NOT CRUSH or CHEW, 09/03/2018 1:15 AM CDT 0.01 mcg/kg/min 4.4 mL/hr norepinephrine (LEVOPHED) 4 mg in Dose/Rate dextrose 5% (D5W) 250 mL IV drip (std Change conc) 0.01-0.3 mcg/kg/min 118.4 kg (4.44-133.2 mL/hr, rounded to 4.4-133.2 mL/hr) 250 mL, at 4.4-133.2 mL/hr, Intravenous, TITRATE DIRECTED , Starting Tue09/01/18 at 1330, Until Tue09/03/18 at 1127, Initiate at 0.02 mcg/kg/min Titrate to keep: MAP > 60 Std Conc=16mcg/mL. For weight-based dosing, use patient dosing weight., 0.02 mcg/kg/min 8.9 mL/hr Dose/Rate Change 09/02/2018 11:26 PM CDT 0.03 mcg/kg/min 13.3 mL/hr Dose/Rate Change 09/02/2018 8:57 PM CDT 09/07/2018 12:09 AM CDT 5 mg oxyCODONE (ROXICODONE, OXY-IR) tablet 5 Given mg 5 mg, Oral, EVERY 6 HOURS PRN, Starting Tue09/01/18 at 1317, Until Tue09/07/18 at 1748, Pain PO 5 mg Given 09/06/2018 4:43 PM CDT 5 mg Given 09/06/2018 10:41 AM CDT 09/07/2018 8:29 AM CDT 40 mg pantoprazole (PROTONIX) injection 40 mg Given 40 mg, Intravenous, DAILY, First dose on Tue09/01/18 at 2100, Until Discontinued 40 mg Given 09/06/2018 9:17 AM CDT 40 mg Given 09/05/2018 8:43 AM CDT 09/01/2018 4:58 PM CDT 2 Diluted mL perflutren lipid microspheres (DEFINITY) Given injection 1-20 Diluted mL 1-20 Diluted mL, Intravenous, ONCE, 1 dose, Tue09/01/18 at 1545, NOTE: This is a HIGH ALERT Medication., MAC Procedure Area Only - Medications 09/06/2018 12:13 PM CDT 2 Diluted mL perflutren lipid microspheres (DEFINITY) Given injection 1-20 Diluted mL 1-20 Diluted mL, Intravenous, ONCE, 1 dose, Tue09/06/18 at 1200, NOTE: This is a HIGH ALERT Medication., [facility] Procedure Area Only - Medications 09/01/2018 4:04 PM CDT 10 mg Abdominal Tissue phytonadione (VITAMIN K) injection 10 mg Given 10 mg, Subcutaneous, ONCE, 1 dose, Tue09/01/18 at 1400 09/04/2018 8:04 AM CDT 3.375 g 100 mL/hr piperacillin/tazobactam (ZOSYN) 3.375 Given - New g/50 mL iso-osmotic IVPB Bag 3.375 g, Intravenous, at 100 mL/hr, EVERY 6 HOURS, First dose on Tue09/01/18 at 1330, Until Discontinued 3.375 g 100 mL/hr Given - New Bag 09/04/2018 2:04 AM CDT 3.375 g 100 mL/hr Given - New Bag 09/03/2018 8:10 PM CDT potassium chloride oral solution 40-60 mEq 40-60 mEq, Per NG tube, NEEDED, Starting Tue09/06/18 at 0855, Until Lisa 09/07/18 at 1748, Other..., For potassium replacement, See admin instructions, If urine output < 30 mL/hr or SCr >2 mg/dL, check with physician prior to giving K+ replacement. - K 3-4 mmol/L, administer KCl 40 mEq PO/NG x1 dose - K 2.5-2.9 mmol/L, administer KCl 60 mEq PO/NG x1 dose AND notify physician for additional dosing - K < 2.5 mmol/L notify physician for dosing Recheck serum potassium two hours after completion of appropriate replacement dose. Repeat this standing order x 2. Notify physician if serum potassium < 3.3 mmol/L after three replacements. Do NOT break or crush tablet, 09/06/2018 9:40 AM CDT 40 mEq potassium chloride SR (K-DUR) tablet Given 40-60 mEq 40-60 mEq, Oral, NEEDED, Starting Tue09/06/18 at 0855, Until Lisa 09/07/18 at 1748, Other..., For potassium replacement, See admin instructions, If urine output < 30 mL/hr or SCr >2 mg/dL, check with physician prior to giving K+ replacement. - K 3-4 mmol/L, administer KCl 40 mEq PO/NG x1 dose - K 2.5-2.9 mmol/L, administer KCl 60 mEq PO/NG x1 dose AND notify physician for additional dosing - K < 2.5 mmol/L notify physician for dosing Recheck serum potassium two hours after completion of appropriate replacement dose. Repeat this standing order x 2. Notify physician if serum potassium < 3.3 mmol/L after three replacements. Do NOT break or crush tablet, 40 mEq Given 09/06/2018 9:17 AM CDT 09/04/2018 10:16 AM CDT 250 mg potassium, sodium phosphates (PHOS-NaK) Given packet 250 mg 250 mg (1 packet), Oral, ONCE, 1 dose, Tue09/04/18 at 0945, NEUTRAPHOS or Phos-NaK -- MIX PACKET IN 75ML WATER Each packet delivers 8mM Phosphorus, 7mEq Potassium, and 7 mEq Sodium, 09/07/2018 8:22 AM CDT 150 mg pregabalin (LYRICA) capsule 150 mg Given 150 mg, Oral, TWICE DAILY, First dose on Tue09/06/18 at 2100, Until Discontinued 150 mg Given 09/06/2018 9:32 PM CDT 09/06/2018 9:17 AM CDT 75 mg pregabalin (LYRICA) capsule 75 mg Given 75 mg, Oral, TWICE DAILY, First dose on Tue09/04/18 at 1300, Until Discontinued 75 mg Given 09/05/2018 9:18 PM CDT 75 mg Given 09/05/2018 8:43 AM CDT 09/06/2018 3:21 PM CDT 75 mg pregabalin (LYRICA) capsule 75 mg Given 75 mg, Oral, ONCE, 1 dose, 09/06/18 at 1500 09/02/2018 8:41 PM CDT 50 mg QUEtiapine (SEROQUEL) tablet 50 mg Given 50 mg, Oral, ONCE, 1 dose, 09/02/18 at 1930 09/04/2018 8:04 AM CDT 8.8 mg senna (SENOKOT) oral syrup 8.8 mg Given 8.8 mg, Oral, TWICE DAILY, First dose on Tue09/01/18 at 2100, Until Discontinued, Hold for loose stools, 8.8 mg Given 09/03/2018 8:11 PM CDT 8.8 mg Given 09/02/2018 8:42 AM CDT 09/04/2018 12:55 PM CDT 80 mg simethicone (MYLICON) chew tablet 80 mg Given 80 mg, Oral, EVERY 6 HOURS PRN, Starting 09/04/18 at 1158, Until Lisa 09/07/18 at 1748, Flatulence 09/07/2018 8:24 AM CDT 25 mg spironolactone (ALDACTONE) tablet 25 mg Given 25 mg, Oral, DAILY, First dose on Tue09/07/18 at 0900, Until Discontinued, NURSING: Please educate patient and document: Avoid using salt substitutes which have a high potassium content (Nu-Salt)., 09/07/2018 8:23 AM CDT 0.5 mg tacrolimus (PROGRAF) capsule 0.5 mg Given 0.5 mg, Oral, TWICE DAILY, First dose on Tue09/01/18 at 2100, Until Discontinued, - Levels should be drawn immediately prior to morning dose. - For oral (PO) administration capsule is to be swallowed whole. - For sublingual (SL) administration capsule is to be opened and contents placed under tongue. -- Sublingual route is equivalent to 50% of oral route -- , 0.5 mg Given 09/06/2018 9:32 PM CDT 0.5 mg Given 09/06/2018 9:17 AM CDT 09/01/2018 4:05 PM CDT 30 mL tetracaine 0.25% /EPINEPHrine 0.003%(#) Given 30 mL 30 mL, Injection, ONCE, 1 dose, Tue09/01/18 at 1545, When administered by RT, will be per RT policy., 09/07/2018 12:09 AM CDT 50 mg traZODone (DESYREL) tablet 50 mg Given 50 mg, Oral, AT BEDTIME PRN, Starting 09/02/18 at 2248, Until Lisa 09/07/18 at 1748, Insomnia 50 mg Given 09/04/2018 8:34 PM CDT 50 mg Given 09/03/2018 9:33 PM CDT 09/02/2018 3:26 PM CDT 1.5 g 200 mL/hr vancomycin (VANCOCIN) 1.5 g in dextrose Given - New 5% (D5W) IVPB Bag 1.5 g, Intravenous, 300 mL, Administer over 90 Minutes, EVERY 24 HOURS, First dose on Tue09/01/18 at 1445, Until Discontinued, Note Pharmacokinetic Monitoring: Please record infusion start time (Action=Given) and stop time (Action=Completed) of dose when blood levels are drawn., 1.5 g 200 mL/hr Given - New Bag 09/01/2018 3:50 PM CDT 09/03/2018 8:11 PM CDT 2.5 mg warfarin (COUMADIN) tablet 2.5 mg Given 2.5 mg, Oral, AT BEDTIME DAILY, First dose on 09/03/18 at 2100, Until Discontinued, NURSING: Provide patient with warfarin education leaflet and video. Do not give with cranberry juice. NOTE: This is a HIGH ALERT Medication., 09/06/2018 9:32 PM CDT 4 mg warfarin (COUMADIN) tablet 4 mg Given 4 mg, Oral, AT BEDTIME DAILY, First dose on 09/04/18 at 2100, Until Discontinued, NURSING: Provide patient with warfarin education leaflet and video. Do not give with cranberry juice. NOTE: This is a HIGH ALERT Medication., 4 mg Given 09/05/2018 9:18 PM CDT 4 mg Given 09/04/2018 8:34 PM CDT warfarin (COUMADIN) tablet 5 mg 5 mg, Oral, AT BEDTIME DAILY, First dose on Lisa 09/07/18 at 2100, Until Discontinued, NURSING: Provide patient with warfarin education leaflet and video. Do not give with cranberry juice. NOTE: This is a HIGH ALERT Medication., warfarin, pharmacy to manage PER PHARMACY, 999 doses, Starting 09/04/18 at 0849, Until Lisa 09/07/18 at 1748, Warfarin Indication: A fib/A flutter, INR Goal: INR 2-3, This order is for informational use only. See separate order for administration and documentation of warfarin. NOTE: This is a HIGH ALERT Medication., in this encounter
[2018-11-18] MEDS ORDERED: WARF5TAB8 (05:26)
[2018-11-18] MEDS ORDERED: ESZO2TAB31 (05:26)
--- OUTSIDE RECORDS SUMMARY | 2018-11-18 05:26 | XMS REPORT | Encounter Summary ---
Author Author [facility] Organization [facility] Address Unknown Phone Unavailable Care Team Providers Care Highway Engineer Name Role Phone Jamie Sanders MD [...] Details Care Team Description Date Type Department 08/31/2018 [facility] Radiology [facility] [address] [place] [address] Social History Date Tobacco Use Types Packs/Day [...] Status Date of Assessment Functional Status Response 08/21/2018 Does the patient have a hearing impairment: [...] cognitive impairment: No as of this encounter Medications at Time of Discharge Start Date End Date Medication Sig Dispensed Refills allopurinol (ZYLOPRIM) Take 100 mg 0 100 mg tablet by mouth daily. blood sugar diagnostic Use 1 Strip 0 (GLUCOSE METER TEST as directed STRIP) test strip three times daily. accuchek wild 03/04/2017 Blood-Glucose Meter Accuchek 1 Kit 0 kitIndications: Diabetes WILD METER mellitus without complication (HCC) 12/16/2010 Cholecalciferol (Vitamin Take 1 Cap by 60 Cap 3 D3) 1,000 unit PO Cap mouth Twice Daily. Docusate Calcium 50 mg Take 100 mg 0 cap by mouth at bedtime daily. 03/22/2014 insulin aspart (NOVOLOG) Inject 9 75 mL 3 100 unit/mL units with flexPENIndications: Type breakfast, 9 II or unspecified type units with diabetes mellitus without lunch, and 11 mention of complication, units with not stated as dinner. Plus uncontrolled 2 for every 40 >140 Max 80. 02/20/2018 lisinopril (PRINIVIL; Take 1 tablet 90 tablet 3 ZESTRIL) 5 mg tablet by mouth daily. other medication 1 Dose. CHAZ 0 COMFORT get for feet. pregabalin (LYRICA) 150 Take 150 mg 0 mg capsule by mouth twice daily. rOPINIRole (REQUIP) 1 mg Take 1 mg by 0 tablet mouth twice daily. senna/docusate Take 1 tablet 0 (SENOKOT-S) 8.6/50 mg by mouth tablet daily. 02/20/2018 ursodiol (RANJIT) 250 mg Take 1 tablet 60 tablet 3 tablet by mouth twice daily with meals. 02/20/2018 warfarin (COUMADIN) 5 mg Take 1 tablet 90 tablet 3 tablet by mouth as directed. Take 5 mg by mouth five times weekly on Tuesday, Tuesday, Tuesday, , Tuesday. Take in the evening. 02/21/2018 09/03/2018 aspirin 81 mg chewable Chew 1 tablet 90 tablet 3 tablet by mouth daily. Take with food. 08/21/2018 09/01/2018 atorvastatin (LIPITOR) 10 Take one 90 tablet 3 mg tablet tablet by mouth daily. 09/03/2018 cyanocobalamin(DIL) Inject into 0 (VITAMIN B-12) 100 mcg/mL the muscle every 30 days. Not had for 8 months 08/31/2018 11/17/2018 ergocalciferol (VITAMIN Take one 12 capsule 0 D-2) 50,000 unit capsule capsule by mouth every 7 days for 12 doses. 02/21/2018 09/07/2018 furosemide (LASIX) 20 mg Take 3 90 tablet 3 tablet tablets by mouth every morning. After having your labs checked, your doctors may increase your dose back to 120 mg by mouth once daily 09/03/2018 HYDROcodone/acetaminophen Take 2 0 (NORCO) 5/325 mg tablet tablets by mouth three times daily 03/22/2014 09/07/2018 insulin detemir(+) 34 U am and 4 box 3 (LEVEMIR FLEXPEN) 100 16 U pm plus unit/mL (3 mL) injection 2 units to penIndications: Type II prime pen or unspecified type each time. diabetes mellitus without mention of complication, not stated as uncontrolled 02/21/2018 09/03/2018 metoprolol XL (TOPROL XL) Take 1 tablet 90 tablet 3 50 mg extended release by mouth tablet daily. 02/20/2018 09/03/2018 metoprolol XL (TOPROL XL) Take 1 tablet 30 tablet 3 50 mg extended release by mouth tablet daily. 12/16/2010 09/07/2018 mycophenolate mofetil Take 2 Caps 120 Cap 3 (CELLCEPT) 250 mg PO by mouth capsule Twice Daily. 09/01/[address](+) Take 40 mg by 0 (PRILOSEC) 20 mg PO mouth daily. capsule 09/03/2018 oxyCODone (ROXICODONE) 5 Take 5 mg by 0 mg tablet mouth every 6 hours as needed 02/21/2018 09/03/2018 oxyCODONE (ROXICODONE, Take 1 tablet 18 tablet 0 OXY-IR) 5 mg tablet by mouth daily for pain. 08/31/2018 09/07/2018 tacrolimus (PROGRAF) 0.5 Take one 60 capsule 5 mg capsule capsule by mouth twice daily. 02/20/2018 09/07/2018 warfarin (COUMADIN) 2.5 Take 1 tablet 90 tablet 3 mg tablet by mouth as directed. Take 2.5 mg by mouth two times weekly on Tuesday & Tuesday. Take in the evening. as of this encounter Plan of Treatment Not on fileas of this encounter Goals Goal Patient Associated Recent Progress Patient-Stat Author Goal Type Problems ed? HEMOGLOBIN A1C < 7.0 Result 6.8 (09/07/2018 No [place], Component 3:35 AM CDT) KILEY Mcintosh as of this encounter Procedures Comments Procedure Name Priority Date/Time Associated Diagnosis GENERAL RAD CHEST Routine 08/31/2018 Diagnosis unknown EXTERNAL IMAGING 2:20 PM CDT in this encounter Results * GENERAL RAD CHEST EXTERNAL IMAGING (08/31/2018 2:20 PM CDT) Narrative Performed At This order has been auto finalized and does not contain a result. in this encounter Visit Diagnoses Diagnosis Diagnosis unknown Other unknown and unspecified cause of morbidity or mortality in this encounter
--- OUTSIDE RECORDS SUMMARY | 2018-11-18 05:26 | XMS REPORT | Encounter Summary ---
Author Author [facility] Organization [facility] Address Unknown Phone Unavailable Care Team Providers Care Registered Land Surveyor Name Role Phone Jamie Sanders MD [...] Details Care Team Description Date Type Department 09/01/2018 [facility] Radiology [facility] [address] [place] [address] Social History Date Tobacco Use Types Packs/Day [...] with long-term current use of insulin (HCC) 02/20/2018 lisinopril (PRINIVIL; Take 1 tablet 90 tablet 3 ZESTRIL) 5 mg tablet by mouth daily. 09/08/2018 metoprolol XL (TOPROL XL) Take one 30 tablet 0 100 mg extended release tablet by tablet mouth daily. other medication 1 Dose. CHAZ [...] capsule capsule by mouth twice daily. 02/20/2018 ursodiol (RANJIT) 250 mg Take [...] tablet by mouth daily. Take with food. 09/03/2018 cyanocobalamin(DIL) Inject into 0 (VITAMIN B-12) [...] mg PO by mouth capsule Twice Daily. 09/03/2018 oxyCODone (ROXICODONE) 5 Take 5 mg [...] Date/Time Associated Diagnosis GENERAL RAD CHEST Routine 09/01/2018 Diagnosis unknown EXTERNAL IMAGING 6:10 AM CDT in this encounter Results * GENERAL RAD CHEST EXTERNAL IMAGING (09/01/2018 6:10 AM CDT) Narrative Performed At This order has been auto finalized and does not contain a result. in this encounter Visit Diagnoses Diagnosis Diagnosis unknown Other unknown and unspecified cause of morbidity or mortality in this encounter
--- OUTSIDE RECORDS SUMMARY | 2018-11-18 05:26 | XMS REPORT | Encounter Summary ---
Author Author [facility] Organization [facility] Address Unknown Phone Unavailable Care Team Providers Care Project Leader Name Role Phone Jamie Sanders MD PCP [...] Care Team Description Date Type Department 09/01/2018 [facility] Radiology [facility] [address] [place] [address] Social History Date Tobacco Use Types Packs/Day [...] Diagnosis unknown EXTERNAL IMAGING 4:45 AM CDT in this encounter Results * GENERAL RAD CHEST EXTERNAL IMAGING (09/01/2018 4:45 AM CDT) Narrative Performed At This order has been auto finalized and does not contain a result. in this encounter Visit Diagnoses Diagnosis Diagnosis unknown Other unknown and unspecified cause of morbidity or mortality in this encounter
--- OUTSIDE RECORDS SUMMARY | 2018-11-18 05:27 | XMS REPORT | Encounter Summary ---
Author Author [facility] Organization [facility] Address Unknown Phone Unavailable Care Team Providers Care Parking Enforcement Specialist Name Role Phone Jamie Sanders MD PCP [...] Reason Comments Medication Dose Change Encounter Details Care Team Description Date Type Department Mattie Callaway BSN Medication Dose Change 08/30/2018 Telephone [facility] 1st FLOOR [address] [place] [address] Social History Date Tobacco Use Types Packs/Day [...] cognitive impairment: No as of this encounter Miscellaneous Notes * [...]
--- OUTSIDE RECORDS SUMMARY | 2018-11-18 05:27 | XMS REPORT | Encounter Summary ---
Author Author [facility] Organization [facility] Address Unknown Phone Unavailable Care Team Providers Care Pattern Hand Name Role Phone Jamie Sanders MD PCP [...] Reason Comments Liver Recipient Follow-up Encounter Details Care Team Description Date Type Department Valdemar Phillips MD [id number] [place] [address] Anemia, unspecified type (Primary Dx); Status post liver transplant (HCC) 08/21/2018 Office Visit [facility] 1st FLOOR [address] [place] [address] Social History Date Tobacco Use Types Packs/Day [...] Vital Signs Time Taken Vital Sign Reading 08/21/2018 12:28 PM CDT Blood Pressure 112/56 08/21/2018 12:28 PM CDT Pulse 95 08/21/2018 12:28 PM CDT Temperature 37.2 C (98.9 F) 08/21/2018 12:28 PM CDT Respiratory Rate 18 08/21/2018 12:28 PM CDT Oxygen Saturation 95% - Inhaled Oxygen - Concentration 08/21/2018 12:28 PM CDT Weight 106.6 kg (235 lb) 08/21/2018 12:28 PM CDT Height 182.9 cm (6') 08/21/2018 12:28 PM CDT Body Mass Index 31.87 in this encounter Functional Status Date of [...] cognitive impairment: No as of this encounter Patient Instructions * Patient Instructions* Chiki Keller RN - 08/21/2018 11:00 AM CDT Follow up [...] records from Dr. Cuba Li cardiology in [place] in this encounter Progress Notes * Valdemar Phillips MD - 08/21/2018 11:00 AM CDT Date of Service: 08/21/2018 Cuco Chong is a 73 y.o. male Subjective: History of Present Illness Mr. Chong is a pleasant 72-year-old gentleman, who is accompanied by his today. 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 He was last seen [...] weeks ago. He was following with a private branch exchange service advisor named Dr. Li who reportedly has performed [...] hemoglobin A1c. He is frustrated with the [place] hospital system because they have discontinued some of his opioid narcotics due to the "opioid epidemic" in the current regimen he is being prescribed is not as effective for his chronic knee and back pain related to advanced osteoarthritis. He has not seen a technician anatomic pathology for annual skin exam but does have a lesion on his left ear which is primary care doctor, Dr. Sanders, is planning on excising. Denies chest pain, shortness of breath, nausea, vomiting. He otherwise had no other new complaints or symptoms to report. He lives in [place], [place] with his . Review of Systems [...] PRADO status post orthotopic liver transplant at [facility] in 2010. He was last seen [...] well as spironolactone and follows with a private branch exchange service advisor, Dr. Li. Weight today is 235 pounds [...] hospital discharge in February. Evaluation by his private branch exchange service advisor has included Doppler ultrasound, TTE and Holter [...] recommended that he be screened by a technician anatomic pathology. 15. Colon cancer screening. His last colonoscopy [...] patient to call or contact us at [phone] if I may be of further assistance in his care. The patient understands to call or contact us with any changes in status. Thank you very much for allowing me to participate in care of this very kind and interesting patient. Please do not hesitate to call or contact me at [phone] if I may be of further assistance [...] versus PRADO with previous liver transplant at [facility] in November 2010. He has had [...] he did have an acute hospitalization at [facility] in February 2018, with respiratory failure. [...] He has had local followup with his private branch exchange service advisor. He has had recent concerns for falling [...] ascites. He had a paracentesis performed at [facility] earlier in June of 2017, and he reports having a previous paracentesis locally at [facility]. He reports that he has had [...] encouraged him to follow up with his private branch exchange service advisor for ongoing workup and evaluation due to [...] hesitate to call or contact me at [phone] if I may be of further assistance in his care. Valdemar Pihllips MD (DOC:[id number]) Staff name: Valdemar Phillips MD Date: 08/21/2018 [...] liver transplant (HCC) Liver replaced by transplant in this encounter
--- OUTSIDE RECORDS SUMMARY | 2018-11-18 05:27 | XMS REPORT | Encounter Summary ---
Author Author [facility] Organization [facility] Address Unknown Phone Unavailable Care Team Providers Care Mechanical Equipment Sales Engineer Name Role Phone Jamie Sanders MD [...] Care Team Description Date Type Department 08/31/2018 [facility] Radiology [facility] [address]nd fl [address] [place] [address] Social History Date Tobacco Use Types Packs/Day [...] 30 days. Not had for 8 months 02/21/2018 09/07/2018 furosemide (LASIX) 20 mg Take [...] mg tablet by mouth daily for pain. 02/20/2018 09/07/2018 warfarin (COUMADIN) 2.5 Take 1 [...] Diagnosis unknown EXTERNAL IMAGING 8:25 AM CDT in this encounter Results * GENERAL RAD CHEST EXTERNAL IMAGING (08/31/2018 8:25 AM CDT) Narrative Performed At This order has been auto finalized and does not contain a result. in this encounter Visit Diagnoses Diagnosis Diagnosis unknown Other unknown and unspecified cause of morbidity or mortality in this encounter
--- OUTSIDE RECORDS SUMMARY | 2018-11-18 05:27 | XMS REPORT | Encounter Summary ---
Author Author [facility] Organization [facility] Address Unknown Phone Unavailable Care Team Providers Care Plow Holder Name Role Phone Jamie Sanders MD PCP [...] Oliva DO Unavailable Mattie Callaway Unavailable Unavailable Ryoa Gottlieb Unavailable Unavailable Batsheva Long MA Unavailable Unavailable Carlotta De La Torre Unavailable Unavailable Justine Marquez Unavailable Unavailable Saad Godinez MD Unavailable Yeyo Roberson MD Unavailable Encounter Details Care Team Description Date Type Department Valdemar Phillips MD [id number] [place] [address] Liver transplant status (HCC) 08/21/2018 Hospital Clinlab Encounter [facility] [address]st fl [address] [place] [address] Social History Date Tobacco Use Types Packs/Day [...] tablet by mouth daily for pain. 02/20/2018 08/31/2018 tacrolimus (PROGRAF) 1 mg Take 1 60 capsule 3 capsule capsule by mouth twice daily. 02/20/2018 [...] Comments Procedure Name Priority Date/Time Associated Diagnosis PROTEIN/CR RATIO,UR RAN Routine 08/21/2018 Liver replaced by 11:33 AM CDT transplant (HCC) IRON + BINDING CAPACITY + Add on 08/21/2018 Anemia %SAT+ FERRITIN 11:04 AM CDT GGTP Routine 08/21/2018 Liver replaced by 11:04 AM CDT transplant (HCC) TACROLIMUS LEVEL(FK506) Routine 08/21/2018 Liver replaced by 11:04 AM CDT transplant (HCC) 25-OH VITAMIN D (D2 + D3) Routine 08/21/2018 Disorder of bone density 11:04 AM CDT and structure, unspecified Liver replaced by transplant (HCC) CBC AND DIFF Routine 08/21/2018 Liver replaced by 11:04 AM CDT transplant (HCC) TRANSFERRIN Add on 08/21/2018 Anemia 11:04 AM CDT PHOSPHORUS Routine 08/21/2018 Liver replaced by 11:04 AM CDT transplant (HCC) MAGNESIUM Routine 08/21/2018 Liver replaced by 11:04 AM CDT transplant (HCC) LIPID PROFILE Routine 08/21/2018 Liver replaced by 11:04 AM CDT transplant (HCC) COMPREHENSIVE METABOLIC Routine 08/21/2018 Liver replaced by PANEL 11:04 AM CDT transplant (HCC) in this encounter Results * PROTEIN/CR RATIO,UR RAN (08/21/2018 11:33 AM CDT) Protein, Random 11 MG/DL [facility] Creatinine, Random 34 MG/DL [facility] Protein/CR ratio 0.3 [facility] Specimen Urine - Urine Performing Organization Address [facility] Phone Number [facility] [address] [place] [address] * TRANSFERRIN (08/21/2018 11:04 AM CDT) Transferrin 291 185 - 336 MG/DL [facility] Performing Organization Address [facility] Phone Number [facility] [address] [place] [address] * IRON + BINDING CAPACITY + %SAT+ FERRITIN (08/21/2018 11:04 AM CDT) Iron 40 (L) 50 - 185 MCG/DL [facility] Iron Binding-TIBC 434 (H) 270 - 380 MCG/DL [facility] % Saturation 9 (L) 28 - 42 % [facility] Ferritin 19 (L) 30 - 300 NG/ML [facility] Performing Organization Address [facility] Phone Number [facility] [address] [place] [address] * 25-OH VITAMIN D (D2 + D3) (08/21/2018 11:04 AM CDT) Vitamin D(25-OH)Total 21.6 (L) 30 - 80 NG/ML [facility] Specimen Blood Performing Organization Address [facility] Phone Number [facility] [address] [place] [address] * LIPID PROFILE (08/21/2018 11:04 AM CDT) [...] 130 mg/dL. Specimen Blood Performing Organization Address [facility] Phone Number [facility] LAB [address] [place] [phone] * TACROLIMUS LEVEL([id number]) (08/21/2018 11:04 AM CDT) Tacrolimus 6.2 2 - 15 NG/ML [facility] Comment: Target concentrations vary by type of transplant, patient response, concomitant immunosuppression and post-transplant time interval.Test was performed on whole blood using AirDroids QMS reagent and a Kristy Stoneham AU analyzer. Specimen Blood Performing Organization Address [facility] Phone Number [facility] [address] [place] [address] * GGTP (08/21/2018 11:04 AM CDT) GGTP 27 9 - 64 U/L [facility] Specimen Blood Performing Organization Address [facility] Phone Number [facility] [address] [place] [address] * PHOSPHORUS (08/21/2018 11:04 AM CDT) Phosphorus 3.1Comment: NOTE NEW REFERENCE 2.0 - 4.5 MG/DL [facility] RANGES Specimen Blood Performing Organization Address [facility] Phone Number [facility] [address] [place] [phone] * MAGNESIUM (08/21/2018 11:04 AM CDT) Magnesium 1.6 1.6 - 2.6 mg/dL [facility] Specimen Blood Performing Organization Address City/[facility]/Zipcode Phone Number MAIN LAB [address] [place] [address] * CBC AND DIFF (08/21/2018 11:04 AM CDT) White Blood Cells 7.1 4.5 - 11.0 [...] City/State/Zipcode Phone Number [facility] [address] [place] [address] * COMPREHENSIVE METABOLIC PANEL (08/21/2018 11:04 AM CDT) Sodium 136 (L) 137 - [...] Blood Performing Organization Address City/State/Zipcode Phone Number [facility] [address] [place] [address] in this encounter Visit Diagnoses Diagnosis Liver replaced by transplant (HCC) Liver replaced by transplant Disorder of bone density and structure, unspecified Anemia, unspecified type in this encounter
--- OUTSIDE RECORDS SUMMARY | 2018-11-18 05:27 | XMS REPORT | Encounter Summary ---
Author Author [facility] Organization [facility] Address Unknown Phone Unavailable Care Team Providers Care Play Writer Name Role Phone Jamie Sanders MD PCP [...] Department Valdemar Phillips MD [id number] [place] [address] [phone] 08/25/2018 Documentation [facility] 1st FLOOR [address] [place] [address] Social History Date Tobacco Use [...] cognitive impairment: No as of this encounter Progress Notes * Peng Rivas - 08/25/2018 8:16 AM CDT Faxed request to Dr. Li at fax# [phone], requesting all patient cardiology records.Peng Rivas in this encounter Plan of Treatment Not on fileas of this encounter Goals Goal Patient Associated Recent Progress Patient-Stat Author Goal Type Problems ed? HEMOGLOBIN A1C < 7.0 Result 6.8 (09/07/2018 No [place], Component 3:35 AM CDT) KILEY Mcintosh as of this encounter Visit Diagnoses Not on filein this encounter
--- OUTSIDE RECORDS SUMMARY | 2018-11-18 05:27 | XMS REPORT | Encounter Summary ---
Author Author [facility] Organization [facility] Address Unknown Phone Unavailable Care Team Providers Care Soda Room Operator Name Role Phone Jamie Sanders MD [...] Unavailable Roya Gottlieb Unavailable Unavailable Batsheva Long TIMOTHY Unavailable Unavailable Carlotta De La Torre Unavailable Unavailable Justine Marquez Unavailable Unavailable Saad Godinez MD Unavailable Yeyo Roberson MD Unavailable Cuba Li MD Unavailable Reason for Visit * Reason Comments Medication Dose Change Encounter Details Care Team Description Date Type Department Mattie Callaway BSN Medication Dose Change 08/31/2018 Telephone [facility] 1st FLOOR [address] [place] [address] Social History Date Tobacco Use Types Packs/Day [...] Telephone Encounter - Mattie Callaway BSN - 08/31/2018 3:26 PM CDT Spoke with pt's and instructed her to decrease pt's prograf to 0.5mg BID and repeat labs a week after starting new dose. [place] [address] [place] D weekly x 12 weeks. requesting scripts be [facility] Also informed her that pt would need iron infusion. She states that pt's PCP can set up for him. Will send order. * Telephone Encounter - Mattie Callaway BSN - 08/31/2018 3:26 PM CDT ----- Message from JAIME Mayer sent at 08/30/2018 3:13 PM CDT - ---- Yes please supplement with high-dose vitamin D Please arrange for iron infusion We will decrease Prograf to 0.5 mg twice daily. Please repeat labs in 1-2 weeks time. Plan to run Prograf trough level at 3 to spare renal function ----- Message ----- From: Mattie Callaway BSN Sent: 08/30/2018 11:38 AM To: JAIME Mayer, # Enzymes stable FK level 6.2, any dose changes? Iron levels low, would you like pt to have an iron infusion? [place] [address] IU vit D weekly x 12 weeks in this encounter Plan of Treatment Not on fileas of this encounter Goals Goal Patient Associated Recent Progress Patient-Stat Author Goal Type Problems ed? HEMOGLOBIN A1C < 7.0 Result 6.8 (09/07/2018 No Laureen, Component 3:35 AM CDT) KILEY Mcintosh as of this encounter Visit Diagnoses Not on filein this encounter
[2018-11-18] MEDS ORDERED: ACETAMINOPHEN 500 MG TAB (TYLENOL) PO PRN (05:30)
[2018-11-18] MEDS: NS IV 1000 ML 1,000 ML IV SCH ×6 (05:30→21:27)
[2018-11-18 05:31] LABS: BASOPHILS % (AUTO) 0 % (0-10); EOSINOPHILS # (AUTO) 0.1 10^3/uL (0.0-0.3); EOSINOPHILS % (AUTO) 1 % (0-10); HEMATOCRIT 44 % (40-54); HEMOGLOBIN 13.6 G/DL (13.3-17.7); LYMPHOCYTES # (AUTO) 1.1 X 10^3 (1.0-4.0); LYMPHOCYTES % (AUTO) 17 % (12-44); MEAN CORPUSCULAR HEMOGLOBIN 25 PG (25-34); MEAN CORPUSCULAR HGB CONC 31 G/DL (32-36); MEAN CORPUSCULAR VOLUME 81 FL (80-99); MEAN PLATELET VOLUME 10.6 FL (7.4-10.4); MONOCYTES # (AUTO) 0.7 X 10^3 (0.0-1.0); MONOCYTES % (AUTO) 11 % (0-12); NEUTROPHILS # (AUTO) 4.4 X 10^3 (1.8-7.8); NEUTROPHILS % (AUTO) 71 % (42-75); PLATELET COUNT 248 10^3/uL (130-400); RED CELL DISTRIBUTION WIDTH 20.4 % (10.0-14.5); WHITE BLOOD COUNT 6.2 10^3/uL (4.3-11.0)
[2018-11-18] MEDS ORDERED: DILTIAZEM 25 MG/5 ML INJ (CARDIZEM) VIAL ONE (05:31)
[2018-11-18] MEDS ORDERED: DILTIAZEM 25 MG/5 ML INJ (CARDIZEM) VIAL IVP ONE ×2 (05:45)
[2018-11-18] MEDS ORDERED: DILTIAZEM INJECTION 125 MG in NS (IVPB) 100 ML IV SCH (05:45)
[2018-11-18 05:51] LABS: ALANINE AMINOTRANSFERASE < 6 U/L (0-55); ALBUMIN 3.8 GM/DL (3.2-4.5); ALKALINE PHOSPHATASE 92 U/L (40-136); BILIRUBIN,TOTAL 1.2 MG/DL (0.1-1.0); BUN/CREATININE RATIO 18; CALCIUM 9.6 MG/DL (8.5-10.1); CARBON DIOXIDE 27 MMOL/L (21-32); CHLORIDE 97 MMOL/L (98-107); GFR ESTIMATED 18; GLUCOSE 172 MG/DL (70-105); SODIUM 139 MMOL/L (135-145); TOTAL PROTEIN 6.8 GM/DL (6.4-8.2)
[2018-11-18 05:52] LABS: POTASSIUM 5.6 MMOL/L (3.6-5.0)
[2018-11-18 05:56] LABS: PROTHROMBIN TIME PATIENT 54.3 SEC (12.2-14.7)
[2018-11-18] MEDS ORDERED: PIPERACILLIN SODIUM/TAZOBACTAM 4.5 GM in NS (IVPB) 100 ML IV ONE ×2 (06:15→06:45)
[2018-11-18 06:25] LABS: BILIRUBIN,URINE NEGATIVE (NEGATIVE); COLOR,URINE YELLOW; GLUCOSE, URINE (UA) NEGATIVE (NEGATIVE); KETONES,URINE NEGATIVE (NEGATIVE); LEUKOCYTE ESTERASE ,URINE NEGATIVE (NEGATIVE); NITRITE,URINE NEGATIVE (NEGATIVE); PH,URINE 7 (5-9); PROTEIN,URINE 3+ (NEGATIVE); UROBILINOGEN,URINE NORMAL (NORMAL)
--- NOTE | 2018-11-18 06:25 | ED General ---
General Chief Complaint: Abdominal/GI Problems Stated Complaint: N,V Nursing Triage Note: N/V/ WEAKNESS, FEVER Nursing Sepsis Screen: No Definite Risk Source of Information: Patient Exam Limitations: No Limitations History of Present Illness Date Seen by Provider: Nov 18, 2018 Time Seen by Provider: 05:20 Initial Comments Here by EMS with report of altered mental status, fever, weakness and hypotension. Patient had normal blood pressure in the 110s to 120s initially but then was in the 60s systolic 2 per EMS. Has apparently had nausea and vomiting several times over the last 24 hours and has not been drinking or eating well for the last 2 days. He did not take any of his blood pressure medicines or other medicines at all yesterday due to the vomiting. Does have history of A. fib and arrives with heart rate of 186. Patient is a poor historian. Answer simple questions and follows simple commands. Timing/Duration: 2-3 Days, Getting Worse Severity: Severe Associated Systoms: No Chest Pain, No Cough; Fever/Chills, Nausea/Vomiting, Shortness of Air, Weakness Allergies and Home Medications Allergies Coded Allergies: meperidine (Verified Allergy, Unknown, 11/18/18) morphine (Verified Allergy, Unknown, 11/18/18) Home Medications Acetaminophen 500 Mg Tablet, 500-1,000 MG PO Q4H PRN for PAIN-MILD, (Reported) Allopurinol 100 Mg Tablet, 100 MG PO HS, (Reported) Diclofenac Sodium 100 Gm Gel..gram., 4 GM TP BID PRN for JOINT PAIN, (Reported) Diltiazem HCl 120 Mg Cap.er.24h, 120 MG PO DAILY Prescribed by: ARIE CANTU on 11/28/18 1255 Docusate Sodium 100 Mg Capsule, 100 MG PO DAILY, (Reported) Furosemide 40 Mg Tablet, 80 MG PO DAILY@07,17 Prescribed by: ARIE CANTU on 11/28/18 1255 Insulin Aspart 100 Unit/1 Ml Susp, SQ AC, (Reported) 13 UNITS PLUS SLIDING SCALE Insulin Detemir 100 Unit/1 Ml Insuln.pen, 36 UNIT SQ 0800, (Reported) Insulin Detemir 100 Unit/1 Ml Insuln.pen, 16 UNIT SQ HS, (Reported) Lidocaine HCl 35 Gm Oint, TP TID, (Reported) Metoprolol Tartrate 25 Mg Tablet, 25 MG PO BID Prescribed by: ARIE CANTU on 11/28/18 1255 Omeprazole 40 Mg Capsule.dr, 40 MG PO DAILY, (Reported) Oxycodone HCl 10 Mg Tablet, 20 MG PO DAILY, (Reported) TAKES 2 (10MG) TABLETS Oxycodone HCl 10 Mg Tablet, 30 MG PO HS, (Reported) TAKES 3 (10MG) TABLETS Pregabalin 150 Mg Capsule, 150 MG PO BID, (Reported) Ropinirole HCl 1 Mg Tablet, 1 MG PO BID, (Reported) Tacrolimus 0.5 Mg Capsule, 0.5 MG PO BID, (Reported) Triamcinolone Acetonide 15 Gm Cream..g., TP DAILY PRN for NEEDED, (Reported) Ursodiol 300 Mg Capsule, 300 MG PO BID, (Reported) Warfarin Sodium 2 Mg Tablet, 4 MG PO DAILY@1800 Prescribed by: ARIE CANTU on 11/28/18 1255 Patient Home Medication List Home Medication List Reviewed: Yes Review of Systems Review of Systems Constitutional: see HPI, chills, fever, weakness EENTM: No nose congestion, No throat pain Respiratory: cough, short of breath; No wheezing Cardiovascular: No chest pain, No edema Gastrointestinal: No abdominal pain; nausea, vomiting Genitourinary: decreased output; No dysuria Musculoskeletal: no symptoms reported Skin: no symptoms reported Psychiatric/Neurological: See HPI, Weakness Review of system history Limited due to patient's underlying condition Past Awtrajx-Zujhim-Bxwsli Hx Past Med/Social Hx: Reviewed Nursing Past Med/Soc Hx Patient Social History Alcohol Use: Denies Use Recreational Drug Use: No Smoking Status: Former Smoker Former Smoker, Quit: Aug 14, 2000 2nd Hand Smoke Exposure: Yes Recent Foreign Travel: No Contact w/Someone Who Travel: No Recent Infectious Disease Expo: No Recent Hopitalizations: No Immunizations Up To Date Tetanus Booster (TDap): Less than 5yrs PED Vaccines UTD: Yes Date of Pneumonia Vaccine: Aug 14, 2014 Date of Influenza Vaccine: Aug 14, 2018 Seasonal Allergies Seasonal Allergies: No Past Medical History Surgeries: Yes Cardiac, CABG, Coronary Stent, Eye Surgery, Liver Transplant, Orthopedic, Rectal , Vasectomy Respiratory: Yes Pneumonia Cardiac: Yes Atrial Fibrillation, Chronic Edema/Swelling, Coronary Artery Disease, High Cholesterol, Hypertension Neurological: Yes Neuropathy Reproductive Disorders: No (VASECTOMY) Genitourinary: No Gastrointestinal: Yes Liver Disease/Jaundice Musculoskeletal: Yes Chronic Back Pain Endocrine: Yes Diabetes, Insulin dep HEENT: Yes Cataract Loss of Vision: Denies Hearing Impairment: Denies Cancer: No Psychosocial: No Integumentary: No Blood Disorders: Yes (immunosuppressed with history of liver transplant) Adverse Reaction/Blood Tranf: No Family Medical History Reviewed Nursing Family Hx Cancer of mouth 19 MOTHER Completed stroke 19 MOTHER G8 BROTHER Myocardial infarction 19 FATHER No Pertinent Family Hx, Heart Disease, Cancer Physical Exam-Suspected Sepsis Physical Exam Vital Signs Vital Signs - First Documented 11/24/18 11/24/18 00:04 15:44 Temp 98.3 Pulse 69 Resp 18 B/P (MAP) 115/62 (79) Pulse Ox 96 O2 Delivery NIV Bilevel O2 Flow Rate 30.00 FiO2 32 Capillary Refill : Less Than 3 Seconds Blood Pressure Mean: 90 Height, Weight, BMI Height: 6'0.00" Weight: 239lbs. 0.0oz. 108.652620zx; 32.4 BMI Method:Stated General Appearance: No Apparent Distress, WD/WN HEENT: PERRL/EOMI, Pharynx Normal Neck: Non Tender, Supple Respiratory: No Accessory Muscle Use, Crackles, Other (mild tachypnea) Cardiovascular: No Murmur, Irregularly Irregular, Tachycardia Gastrointestinal: Non Tender, Soft Back: Normal Inspection, No CVA Tenderness, No Vertebral Tenderness Extremity: Normal Capillary Refill, Normal Range of Motion, Non Tender Neurologic/Psychiatric: Alert, Other (so confused but follows commands and answers simple questions) Skin: warm/dry, pallor; No rash Focused Exam Lactate Level Lactic Acid Level Procedures/Interventions Date of ETT Placement: Sep 01, 2018 Time of ETT Placement: 434 Progress/Results/Core Measures Suspected Sepsis Recent Fever Within 48 Hours: No Infection Criteria Present: None New/Unexplained Altered Menta: No Sepsis Screen: No Definite Risk SIRS Temperature:102.0 Pulse: 165 Respiratory Rate: 24 Laboratory Tests 11/28/18 05:58: White Blood Count 8.3 Blood Pressure 103 /83 Mean: 90 Laboratory Tests 11/28/18 05:58: Creatinine 2.21H, Platelet Count 224 11/28/18 06:43: INR Comment 2.3H Results/Orders Lab Results Micro Results My Orders Medications Given in ED Vital Signs/I&O Capillary Refill : Less Than 3 Seconds Blood Pressure Mean: 90 Progress Note : Progress Note Seen and evaluated. IV by EMS with 1 L normal saline running currently. Repeat 1 L normal saline 2 due to fever and tachycardia with concerns of sepsis and septic shock removed history of low BP. Second IV site initiated. Labs, EKG, chest x-ray, blood cultures and lactic acid ordered. Patient is an atrial fibrillation with rapid ventricular response. Cardizem 20 mg IV and 10 mg per hour drip initiated. 0610: Heart rate dropped to the 100 range and blood pressure is maintained above 100 systolic with fluids and Cardizem running. Chest x-ray shows findings consistent with pneumonia. This fits with his low O2 sats without oxygen and the fever. INR elevated but patient is on Coumadin and I'm not sure actually reflects organ dysfunction from sepsis. That being said, fluid bolus initiated at 30 ml/kg for ideal body weight calculated at 78 kg. Adjusted body would be [address] 3 L normal saline that has been initiated we will exceed the 30 mL/kg for ideal body weight as his PMI is greater than 30. 0625: I attest to focused exam at this time. Patient will be admitted to ICU. I did discuss the case with Dr. Cantu and she accepts patient for admission, inpatient status. Dr. Yadav to be consulted in a.m. Patient and family agree with plan. ECG Initial ECG Impression Date: Nov 18, 2018 Initial ECG Impression Time: 05:27 Initial ECG Rate: 148 Initial ECG Rhythm: A Fib/Flutter Initial ECG Impression: Atrial Fibrillation w/RVR Comment Atrial fibrillation with rapid ventricular response. Extreme right axis deviation. Similar to previous of 08/31/18 which was also afebrile with RVR. No evidence of ST elevation [place]. Interpreted by me. Diagnostic Imaging Diagonstic Imaging: Xray Plain Films/CT/US/NM/MRI: chest Comments Right lower lobe pneumonia and some vascular congestion Reviewed: Reviewed by Me Departure Communication (Admissions) Time/Spoke to Admitting Phy: 06:25 Impression Primary Impression: Right lower lobe pneumonia Qualified Codes: J18.1 - Lobar pneumonia, unspecified organism Additional Impressions: Acute kidney failure Qualified Codes: N17.9 - Acute kidney failure, unspecified Supratherapeutic INR Disposition: ADMITTED INPATIENT Condition: Stable Admissions Decision to Admit Reason: Admit from ER (General) Decision to Admit/Date: Nov 18, 2018 Time/Decision to Admit Time: 06:25 Departure-Patient Inst. Referrals: DURAN PETER DO (PCP/Family) Primary Care Physician Scripts Warfarin Sodium (Coumadin) 2 Mg Tablet 4 MG PO DAILY@1800, #30 TAB Prov: ARIE CANTU MD 11/28/18 Furosemide (Furosemide) 40 Mg Tablet 80 MG PO DAILY@07,17, #60 TAB Prov: ARIE CANTU MD 11/28/18 Metoprolol Tartrate (Metoprolol Tartrate) 25 Mg Tablet 25 MG PO BID, #30 TAB Prov: ARIE CANTU MD 11/28/18 Diltiazem HCl (Diltiazem 24Hr Cd) 120 Mg Cap.er.24h 120 MG PO DAILY, #30 CAP Prov: ARIE CANTU MD 11/28/18 KIMBERLY CANTOR MD Nov 18, 2018 06:25
[2018-11-18 06:36] LABS: BACTERIA,URINE TRACE /HPF; CLARITY,URINE SL CLOUDY; RBC,URINE 50-100 /HPF; SQUAMOUS EPITHELIAL CELL,UR RARE /HPF; WBC,URINE RARE /HPF
--- NOTE | 2018-11-18 06:36 | Diagnostic Imaging Report ---
INDICATION: Cough and congestion. Portable upright AP view of the chest is obtained. Comparison is made study of 09/01/2018. FINDINGS: There is mild generalized cardiomegaly. There is air trapping bilaterally. Prominent interstitial markings are seen in both lungs, however aeration of lungs has improved. IMPRESSION: Prominent interstitial markings which may be chronic. There is continued cardiomegaly with overall generalized improvement in aeration of lung since previous study. Dictated by: Dictated on workstation # [id number]
--- NOTE | 2018-11-18 07:15 | NUR ---
PT ADMITTED TO ICU1 PER CART W/ NURSING STAFF. PT ASSISTED ONTO BED AND PLACED ON MONITORS.
[2018-11-18] MEDS ORDERED: NS IV ONE (07:45)
[2018-11-18] MEDS ORDERED: VANCOMYCIN INJECTION 0.1 MG in NS (IVPB) 250 ML IV SCH (07:45)
[2018-11-18] MEDS ORDERED: CATHETER FLUSH 10 ML SYR IV PRN (07:45)
--- NOTE | 2018-11-18 07:56 | NUR ---
CR 3.4; CR CL ~24; WT 108 KG; VANCO 2000 MG IV BOLUS, THEN 1000 MG Q24H; TROUGH IN AM
[2018-11-18] MEDS ORDERED: VANCOMYCIN 2000 MG/NS 500 ML IVPB IV NR ×2 (08:00)
--- NOTE | 2018-11-18 08:02 | Pulmonary Consultation ---
History of Present Illness History of Present Illness Date of Consultation 11/18/18 07:56 Time Seen by Provider: 07:56 Date of Admission History of Present Illness 73yo poor historian with hx of liver transplant presented to ED via EMS secondary to N/V, fever, weakness, and hypotension. Symptoms started over the last 1-2days. He has also had decreased appetite. He did not take his home medicines yesterday secondary to nausea. SBP was in the 60's per EMS. In the ED he was noted to be in Afib RVR with a rate of 186. I am consulted for ICU management. Allergies and Home Medications Allergies Coded Allergies: meperidine (Verified Allergy, Unknown, 11/18/18) morphine (Verified Allergy, Unknown, 11/18/18) Home Medications Acetaminophen 500 Mg Tablet, 500-1,000 MG PO Q4H PRN for PAIN-MILD, (Reported) Allopurinol 100 Mg Tablet, 100 MG PO HS, (Reported) Diclofenac Sodium 100 Gm Gel..gram., 4 GM TP BID PRN for JOINT PAIN, (Reported) Docusate Sodium 100 Mg Capsule, 100 MG PO DAILY, (Reported) Furosemide 40 Mg Tablet, 120 MG PO DAILY, (Reported) TAKES 3 (40MG) TABLETS Insulin Aspart 100 Unit/1 Ml Susp, SQ AC, (Reported) 13 UNITS PLUS SLIDING SCALE Insulin Detemir 100 Unit/1 Ml Insuln.pen, 36 UNIT SQ 0800, (Reported) Insulin Detemir 100 Unit/1 Ml Insuln.pen, 16 UNIT SQ HS, (Reported) Lidocaine HCl 35 Gm Oint, TP TID, (Reported) Omeprazole 40 Mg Capsule.dr, 40 MG PO DAILY, (Reported) Oxycodone HCl 10 Mg Tablet, 20 MG PO DAILY, (Reported) TAKES 2 (10MG) TABLETS Oxycodone HCl 10 Mg Tablet, 30 MG PO HS, (Reported) TAKES 3 (10MG) TABLETS Pregabalin 150 Mg Capsule, 150 MG PO BID, (Reported) Ropinirole HCl 1 Mg Tablet, 1 MG PO BID, (Reported) Spironolactone 25 Mg Tablet, 25 MG PO DAILY, (Reported) Tacrolimus 0.5 Mg Capsule, 0.5 MG PO BID, (Reported) Triamcinolone Acetonide 15 Gm Cream..g., TP DAILY PRN for NEEDED, (Reported) Ursodiol 300 Mg Capsule, 300 MG PO BID, (Reported) Warfarin Sodium 5 Mg Tablet, 5 MG PO SuMoWeThSa, (Reported) Warfarin Sodium 7.5 Mg Tablet, 7.5 MG PO TuFr, (Reported) Past Mcrvfpe-Iazbfa-Xkbewy Hx Family Medical History Cancer of mouth 19 MOTHER Completed stroke 19 MOTHER G8 BROTHER Myocardial infarction 19 FATHER Review of Systems Time Seen by Provider: 07:48 Sepsis Event Evaluation Height, Weight, BMI Height: '" Weight: lbs. oz. kg; BMI Method: Exam Exam Vital Signs Date Time Temp Pulse Resp B/P (MAP) Pulse Ox O2 Delivery O2 Flow Rate FiO2 11/18/18 07:47 Nasal Cannula 4.00 11/18/18 06:56 101.6 96 19 95/72 (80) 100 Nasal Cannula 4.00 11/18/18 05:35 102.0 11/18/18 05:18 95 Nasal Cannula 4.00 11/18/18 05:18 102.0 165 24 103/83 (90) 95 Nasal Cannula 4.00 I & O 11/18/18 07:00 Intake Total 2000 ml Balance 2000 ml Height & Weight Height: '" Weight: lbs. oz. kg; BMI Method: General Appearance: Anxious, Mild Distress HEENT: PERRL/EOMI, Normal ENT Inspection, Pharynx Normal Neck: Full Range of Motion, Normal Inspection, Non Tender Respiratory: Crackles, Decreased Breath Sounds Cardiovascular: Regular Rate, Rhythm, No Edema, No Gallop Gastrointestinal: normal bowel sounds, non tender, soft Extremity: Normal Capillary Refill, No Pedal Edema Neurologic/Psychiatric: Alert, Oriented x3 Skin: Normal Color, Warm/Dry Lymphatic: No Adenopathy Results Lab Laboratory Tests 11/18/18 05:20 Assessment/Plan Assessment/Plan Severe Sepsis -Severe sepsis protocol -Monitor -[place] cultures pending PNeumonia with immunosuppression -Agree with Vanco, and high dose Rocephin for possible meningitis - IVF -[place] culture. Metabolic encephalopathy/Lethargic -Vanco, and high dose Rocephin for possible meningitis -Check stat CT of head without contrast -Check ammonia level Acute on chronic renal failure -Monitor -IVF HX of CAD with CABG Afib RVR -Cardizem gtt -consult cardiology Hypotension -Pt responded to IVF -Check echo Coumadin coagulopathy -Monitor -Hold Coumadin -GIve insulin, D50, Bicarb POOL RECIO M DO Nov 18, 2018 08:02
[2018-11-18] MEDS: NOREPINEPHRINE 4 MG in NS (IVPB) 250 ML IV SCH ×2 (08:14→21:27)
[2018-11-18] MEDS ORDERED: SODIUM BICARB 8.4% 50 MEQ/50 ML (ABBOTT) SYR IV NR (08:15)
[2018-11-18] MEDS ORDERED: inSUlin (REGULAR) HUMAN 1 UNIT/0.01 ML (CHARGE PER UNIT) IV NR (08:15)
[2018-11-18] MEDS ORDERED: DEXTROSE 50% 50 ML (IMS) SYR IV NR (08:15)
--- NOTE | 2018-11-18 08:26 | History & Physical-Hospitalist ---
History of Present Illness HPI/Chief Complaint Pt is a 73yoCM with a PMH of CAD s/p CABG, liver transplant on chronic immune suppressants, and a-fib who presented to the ER this morning due to nausea and vomiting. He is unable to provide me any history at this time. The only question he answer appropriately for me was his name. All history is obtained through records. He apparently presented to the ER due to nausea and vomiting and was found to be febrile and meet sepsis criteria. He was admitted to the the ICU for further management of sepsis. Source: patient Exam Limitations: clinical condition Date Seen 11/18/18 Time Seen by a Provider: 08:21 Attending Physician Arie Cantu MD PCP Jamie Sanders DO Referring Physician Date of Admission Nov 18, 2018 at 06:30 Home Medications & Allergies Home Medications Reviewed patient Home Medication Reconciliation performed by pharmacy medication reconciliations military pay technician and/or nursing. Patients Allergies have been reviewed. Allergies Allergies Coded Allergies meperidine (Verified Allergy, Unknown, 11/18/18) morphine (Verified Allergy, Unknown, 11/18/18) Past Ztksfsd-Ndjnpa-Xddzru Hx Past Med/Social Hx: Reviewed Nursing Past Med/Soc Hx Patient Social History Marrital Status: Alcohol Use: Denies Use Recreational Drug Use: No Smoking Status: Former Smoker Former Smoker, Quit: Aug 14, 2000 2nd Hand Smoke Exposure: Yes Recent Foreign Travel: No Contact w/other who traveled: No Recent Hopitalizations: No Recent Infectious Disease Expo: No Immunizations Up To Date Tetanus Booster (TDap): Less than 5yrs Pediatric: Yes Date of Pneumonia Vaccine: Aug 14, 2014 Date of Influenza Vaccine: Aug 14, 2018 Seasonal Allergies Seasonal Allergies: No Past Medical History Surgeries: Cardiac, CABG, Coronary Stent, Eye Surgery, Liver Transplant, Orthopedic, Rectal, Vasectomy Respiratory: COPD, Sleep Apnea Cardiac: Atrial Fibrillation, Chronic Edema/Swelling, Coronary Artery Disease, High Cholesterol, Hypertension Neurological: Neuropathy Reproductive: No (VASECTOMY) Gastrointestinal: Liver Disease/Jaundice Musculoskeletal: Chronic Back Pain Endocrine: Diabetes, Insulin dep HEENT: Cataract Loss of Vision: Denies Hearing Impairment: Denies History of Blood Disorders: Yes (immunosuppressed with history of liver transplant) Adverse Reaction to Blood Ken: No Family History Reviewed Nursing Family Hx Cancer of mouth 19 MOTHER Completed stroke 19 MOTHER G8 BROTHER Myocardial infarction 19 FATHER Heart Disease, Cancer Review of Systems ROS-Unable to Obtain: Confusioon Constitutional: see HPI Physical Exam Physical Exam Vital Signs Vital Signs - First Documented 11/23/18 11/23/18 11/23/18 00:00 00:20 01:00 Pulse 103 Resp 18 B/P (MAP) 132/68 (89) Pulse Ox 100 O2 Delivery Vapotherm O2 Flow Rate 35.00 25.00 FiO2 35 Capillary Refill : Less Than 3 Seconds Height, Weight, BMI Height: 6'0.00" Weight: 239lbs. 0.0oz. 108.322518te; 32.4 BMI Method:Stated General Appearance: No Apparent Distress, Obese HEENT: PERRL/EOMI; No Scleral Icterus (L), No Scleral Icterus (R) Respiratory: Lungs Clear, No Accessory Muscle Use, No Respiratory Distress Cardiovascular: No JVD, No Murmur, Irregularly Irregular Gastrointestinal: Normal Bowel Sounds, Non Tender, Soft Extremity: Normal Capillary Refill, No Calf Tenderness Neurologic/Psychiatric: Alert, Disoriented Skin: Other (scar consistent with previous CABG and liver transplant surgery) Results Results/Procedures Labs Laboratory Tests 11/28/18 05:58 Patient resulted labs reviewed. Imaging: Reviewed Imaging Report Assessment/Plan Admission Diagnosis Severe Sepsis Admission Status: Inpatient Order (span 2 midnights) Reason for Inpatient Admission: Needs IV abx, ICu monitoring, cardiology and pulmonology consultations, multiple comorbidities will require more than two midnights to stabilize Diagnosis/Problems Diagnosis/Problems (1) Severe sepsis Status: Resolved Assessment & Plan: ?right sided infiltrate on CXR though official report read as negative Febrile with tachycardia Flu negative Lactic acid normal but mildly hypotensive Received 30ml/kg bolu sin ER per IBW Will add Vanc and given confusion changed to Rocephin for 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 Add acyclovir LP precluded by supratherapuetic INR Await cultures Resolution Date/Time: 11/27/18 @ 10:14 (2) Confusion Status: Resolved Assessment & Plan: Reportedly A&Ox4 in ER Now only oriented to name 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 infection covered as above CT head ordered No focal deficits Resolution Date/Time: 11/27/18 @ 10:15 (3) Atrial fibrillation with RVR Status: Acute Assessment & Plan: On cardizem gtt Cardiology consulted INR >6 so hold anticoagulation last echo reavels EF of 60% in 2016 (4) Supratherapeutic INR Status: Acute Assessment & Plan: Hold home warfarin (5) Acute kidney failure Status: Acute Assessment & Plan: with mild hyperkalemia treated with insulin and bicarb by Dr Blanco Continue IVF resuscitated Qualifiers: Acute renal failure type: unspecified Qualified Codes: N17.9 - Acute kidney failure, unspecified (6) CAD (coronary artery disease) Status: Chronic Assessment & Plan: Echo as above Cardiology consulted, appreciate recs Qualifiers: Coronary Disease-Associated Artery/Lesion type: bypass graft [place] vs. transplanted heart: quileute heart Associated angina: without angina Qualified Codes: I25.810 - Atherosclerosis of coronary artery bypass graft(s) without angina pectoris (7) Immunosuppression Status: Acute Assessment & Plan: Tacrolimus level ordered due to live transplant Cover with broad spectrum abx due to immunesuppresion ARIE CANTU MD Nov 18, 2018 08:26
[2018-11-18] MEDS ORDERED: ACYCLOVIR INJECTION 500 MG in NS (IVPB) 250 ML IV SCH (08:30)
--- NOTE | 2018-11-18 08:46 | Diagnostic Imaging Report ---
PROCEDURE: CT head without contrast. Rule out stroke. TECHNIQUE: Multiple contiguous axial images were obtained through the brain without the use of intravenous contrast. INDICATION: Acute Mental status change. COMPARISON is made to study of 11/16/2018. FINDINGS: The study is limited by motion artifact. The ventricles and sulci remain diffusely prominent. Low-density is seen within the deep white matter of both cerebral hemispheres, most pronounced in the frontal regions. There is no evidence of hemorrhage. There is atherosclerotic calcification within distal internal carotid and vertebral arteries. There is no evidence of territorial infarct. The calvarium is intact and the visualized paranasal sinuses are clear. IMPRESSION: Involutional findings are noted in the brain without significant change when compared to previous study. There is motion artifact which results in mild limitation of evaluation. Dictated by: Dictated on workstation # [id number]
[2018-11-18 09:18] LABS: BASOPHILS % (AUTO) 0 % (0-10); EOSINOPHILS % (AUTO) 0 % (0-10); HEMATOCRIT 39 % (40-54); HEMOGLOBIN 11.7 G/DL (13.3-17.7); LYMPHOCYTES % (AUTO) 21 % (12-44); MEAN CORPUSCULAR HEMOGLOBIN 25 PG (25-34); MEAN CORPUSCULAR HGB CONC 30 G/DL (32-36); MEAN CORPUSCULAR VOLUME 84 FL (80-99); MEAN PLATELET VOLUME 10.5 FL (7.4-10.4); MONOCYTES # (AUTO) 0.6 X 10^3 (0.0-1.0); MONOCYTES % (AUTO) 12 % (0-12); NEUTROPHILS # (AUTO) 3.1 X 10^3 (1.8-7.8); NEUTROPHILS % (AUTO) 66 % (42-75); PLATELET COUNT 192 10^3/uL (130-400); RED CELL DISTRIBUTION WIDTH 19.3 % (10.0-14.5); WHITE BLOOD COUNT 4.6 10^3/uL (4.3-11.0)
[2018-11-18 09:38] LABS: CALCIUM 8.2 MG/DL (8.5-10.1); CREATININE SERUM 2.91 MG/DL (0.60-1.30); POTASSIUM 5.3 MMOL/L (3.6-5.0)
[2018-11-18] MEDS: NS IV SCH (09:41)
[2018-11-18] MEDS: ACYCLOVIR IV SCH (09:41)
--- NOTE | 2018-11-18 10:23 | Consultation-Cardiology ---
HPI-Cardiology Cardiology Consultation Date of Consultation 11/18/18 Date of Admission Time Seen by Provider: 10:19 Indication: atrial fibrillation HPI 73 years old gentleman with history of coronary artery disease, CABG, paroxysmal atrial fibrillation, admitted with sepsis, nausea and vomiting, patient is lethargic, unable to provide history. Confused, disoriented to time and place. Lethargic. History was obtained by his record. Home Medications & Allergies Allergies: Coded Allergies: meperidine (Verified Allergy, Unknown, 08/31/18) morphine (Verified Allergy, Unknown, 08/31/18) Home Medication List Reviewed: Yes JUN-Rlskok-Myhzir Hx Patient Social History Marital Status: Alcohol Use: Denies Use Recreational Drug Use: No Smoking Status: Former Smoker Former smoker/When Quit: Aug 14, 2000 2nd Hand Smoke Exposure: Yes Recent Foreign Travel: No Recent Infectious Disease Expo: No Recent Hopitalizations: No Immunizations Up To Date Tetanus Booster (TDap): Less than 5yrs Date of Pneumonia Vaccine: Aug 14, 2014 Date of Influenza Vaccine: Aug 14, 2018 Past Medical History past medical history as described Family Medical History Significant Family History: Heart Disease, Cancer Family History: Cancer of mouth 19 MOTHER Completed stroke 19 MOTHER G8 BROTHER Myocardial infarction 19 FATHER Review of Systems Constitutional: malaise, weakness, other (lethargic and confused, unable to provide review of systems) Respiratory: orthopnea, short of breath Cardiovascular: edema Reviewed Test Results Reviewed Test Results Lab Laboratory Tests Test 11/18/18 05:20 11/18/18 06:16 11/18/18 07:00 11/18/18 09:07 Range/Units White Blood Count 6.2 4.6 4.3-11.0 10^3/uL Red Blood Count 5.39 4.60 4.35-5.85 10^6/uL Hemoglobin 13.6 11.7 L 13.3-17.7 G/DL Hematocrit 44 39 L 40-54 % Mean Corpuscular Volume 81 84 80-99 FL Mean Corpuscular Hemoglobin 25 25 25-34 PG Mean Corpuscular Hemoglobin Concent 31 L 30 L 32-36 G/DL Red Cell Distribution Width 20.4 H 19.3 H 10.0-14.5 % Platelet Count 248 192 130-400 10^3/uL Mean Platelet Volume 10.6 H 10.5 H 7.4-10.4 FL Neutrophils (%) (Auto) 71 66 42-75 % Lymphocytes (%) (Auto) 17 21 12-44 % Monocytes (%) (Auto) 11 12 0-12 % Eosinophils (%) (Auto) 1 0 0-10 % Basophils (%) (Auto) 0 0 0-10 % Neutrophils # (Auto) 4.4 3.1 1.8-7.8 X 10^3 Lymphocytes # (Auto) 1.1 1.0 1.0-4.0 X 10^3 Monocytes # (Auto) 0.7 0.6 0.0-1.0 X 10^3 Eosinophils # (Auto) 0.1 0.0 0.0-0.3 10^3/uL Basophils # (Auto) 0.0 0.0 0.0-0.1 10^3/uL Prothrombin Time 54.3 *H 12.2-14.7 SEC INR Comment 6.0 *H 0.8-1.4 Activated Partial Thromboplast Time 54 H 24-35 SEC Sodium Level 139 139 135-145 MMOL/L Potassium Level 5.6 H 5.3 H 3.6-5.0 MMOL/L Chloride Level 97 L 103 98-107 MMOL/L Carbon Dioxide Level 27 27 21-32 MMOL/L Anion Gap 15 H 9 5-14 MMOL/L Blood Urea Nitrogen 61 H 54 H 7-18 MG/DL Creatinine 3.40 H 2.91 #H 0.60-1.30 MG/DL Estimat Glomerular Filtration Rate 18 21 BUN/Creatinine Ratio 18 19 Glucose Level 172 H 165 H 70-105 MG/DL Lactic Acid Level 1.31 0.50-2.00 MMOL/L Calcium Level 9.6 8.2 L 8.5-10.1 MG/DL Corrected Calcium 9.8 8.5-10.1 MG/DL Total Bilirubin 1.2 H 0.1-1.0 MG/DL Aspartate Amino Transf (AST/SGOT) 8 5-34 U/L Alanine Aminotransferase (ALT/SGPT) < 6 0-55 U/L Alkaline Phosphatase 92 40-136 U/L Troponin I 0.058 <0.028 NG/ML Total Protein 6.8 6.4-8.2 GM/DL Albumin 3.8 3.2-4.5 GM/DL Urine Color YELLOW Urine Clarity SL CLOUDY Urine pH 7 5-9 Urine Specific [place] 1.005 L 1.016-1.022 Urine Protein 3+ H NEGATIVE Urine Glucose (UA) NEGATIVE NEGATIVE Urine Ketones NEGATIVE NEGATIVE Urine Nitrite NEGATIVE NEGATIVE Urine Bilirubin NEGATIVE NEGATIVE Urine Urobilinogen NORMAL NORMAL MG/DL Urine Leukocyte Esterase NEGATIVE NEGATIVE Urine RBC (Auto) 5+ H NEGATIVE Urine RBC 50-100 H /HPF Urine WBC RARE /HPF Urine Squamous Epithelial Cells RARE /HPF Urine Crystals NONE /LPF Urine Bacteria TRACE /HPF Urine Casts NONE /LPF Urine Mucus NEGATIVE /LPF Urine Culture Indicated NO Ammonia 25 11-32 UMOL/L Test 11/18/18 09:15 11/18/18 09:30 Range/Units Glucometer 174 H 70-110 MG/DL Physical Exam Vital Signs Vital Signs - First Documented Capillary Refill : Less Than 3 Seconds Height, Weight, BMI Height: 6'0.00" Weight: 239lbs. 0.0oz. 108.131564qp; 32.4 BMI Method:Stated General Appearance: WD/WN, Moderate Distress Eyes: Bilateral Eye Normal Inspection, Bilateral Eye PERRL, Bilateral Eye EOMI HEENT: PERRL/EOMI, TMs Normal, Normal ENT Inspection, Pharynx Normal Neck: Full Range of Motion, Normal Inspection, Non Tender, Supple, Carotid Bruit Respiratory: Chest Non Tender, No Respiratory Distress, Crackles, Decreased Breath Sounds Cardiovascular: No Edema, No Gallop, No JVD, Normal Peripheral Pulses, Systolic Murmur, Irregularly Irregular, Tachycardia Gastrointestinal: Normal Bowel Sounds, No Pulsatile Mass, Non Tender, Soft, Other (distended abdomen) Back: Normal Inspection, No CVA Tenderness, No Vertebral Tenderness Extremity: Normal Inspection, Non Tender, No Calf Tenderness, Pedal Edema Neurologic/Psychiatric: Alert, No Motor/Sensory Deficits, Normal Mood/Affect, Other (confused, following commands) Skin: Normal Color, Warm/Dry Lymphatic: No Adenopathy A/P-Cardiology Admission Diagnosis Paroxysmal atrial fibrillation Sepsis Coronary artery disease Change in mental status Assessment/Plan Paroxysmal atrial fibrillation, currently in atrial fibrillation with rapid ventricular response, maintained on Cardizem drip, continue to titrate and adjust to achieve adequate heart rate control Sepsis, febrile, continue on antibiotic, managed by primary care team Acute renal failure, history of chronic renal insufficiency, slight improvement this morning, continue on IV fluid and monitor renal function Immunosuppression, history of liver transplant, continue to monitor Coronary artery disease, history of CABG 4 done in 1999, followed and managed by Dr Melendez Hypertension, monitor blood pressure while on Cardizem drip. 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 BLANCA TABARES MD Nov 18, 2018 10:23
[2018-11-18] MEDS: DILTIAZEM INJECTION 125 MG in NS (IVPB) 100 ML IV SCH ×2 (10:46→20:03)
[2018-11-18] MEDS: cefTRIAXone FOR IV USE 2,000 MG in NS (IVPB) 50 ML IV SCH (10:57)
[2018-11-18] MEDS ORDERED: PIPERACILLIN/TAZO 4.5 GM/NS 100 ML IV SCH ×2 (13:00)
[2018-11-18] MEDS ORDERED: RT-ALBUTEROL/IPRATROPIUM 3 ML (DUONEB) VIAL INH PRN (14:45)
[2018-11-18] MEDS: RT-ALBUTEROL/IPRATROPIUM 3 ML (DUONEB) VIAL INH SCH ×2 (15:19→20:45)
[2018-11-18] MEDS: inSUlin ASPART (NovoLOG) 1 UNIT/0.01 ML (CHARGE PER UNIT) SQ SCH (18:06)
[2018-11-18] MEDS: rOPINIRole 1 MG (REQUIP) TABLET PO SCH (22:04)
[2018-11-18] MEDS: PREGABALIN 75 MG (LYRICA) CAP PO SCH (22:04)
[2018-11-18] MEDS: ACETAMINOPHEN 500 MG TAB (TYLENOL) PO PRN (22:04)
[2018-11-19] VITALS (42 sets, daily range): BP systolic 90–142; BP diastolic 48–118
[2018-11-19] MEDS: DILTIAZEM INJECTION 125 MG in NS (IVPB) 100 ML IV SCH ×3 (02:29→21:44)
[2018-11-19] MEDS: inSUlin ASPART (NovoLOG) 1 UNIT/0.01 ML (CHARGE PER UNIT) SQ SCH ×5 (03:00→22:28)
[2018-11-19] MEDS: RT-ALBUTEROL/IPRATROPIUM 3 ML (DUONEB) VIAL INH SCH ×4 (03:02→20:33)
[2018-11-19 03:31] LABS: BASOPHILS % (AUTO) 1 % (0-10); EOSINOPHILS # (AUTO) 0.1 10^3/uL (0.0-0.3); EOSINOPHILS % (AUTO) 2 % (0-10); HEMATOCRIT 39 % (40-54); HEMOGLOBIN 11.8 G/DL (13.3-17.7); LYMPHOCYTES # (AUTO) 1.3 X 10^3 (1.0-4.0); LYMPHOCYTES % (AUTO) 30 % (12-44); MEAN CORPUSCULAR HEMOGLOBIN 26 PG (25-34); MEAN CORPUSCULAR HGB CONC 30 G/DL (32-36); MEAN CORPUSCULAR VOLUME 85 FL (80-99); MEAN PLATELET VOLUME 10.4 FL (7.4-10.4); MONOCYTES # (AUTO) 0.6 X 10^3 (0.0-1.0); MONOCYTES % (AUTO) 14 % (0-12); NEUTROPHILS # (AUTO) 2.3 X 10^3 (1.8-7.8); NEUTROPHILS % (AUTO) 53 % (42-75); PLATELET COUNT 196 10^3/uL (130-400); RED CELL DISTRIBUTION WIDTH 19.7 % (10.0-14.5); WHITE BLOOD COUNT 4.4 10^3/uL (4.3-11.0)
[2018-11-19 03:58] LABS: ALANINE AMINOTRANSFERASE < 6 U/L (0-55); ALBUMIN 2.9 GM/DL (3.2-4.5); ALKALINE PHOSPHATASE 65 U/L (40-136); BILIRUBIN,TOTAL 0.6 MG/DL (0.1-1.0); BUN/CREATININE RATIO 20; CALCIUM 8.5 MG/DL (8.5-10.1); CARBON DIOXIDE 21 MMOL/L (21-32); CHLORIDE 108 MMOL/L (98-107); CREATININE SERUM 2.55 MG/DL (0.60-1.30); GFR ESTIMATED 25; GLUCOSE 132 MG/DL (70-105); MAGNESIUM 1.6 MG/DL (1.8-2.4); PHOSPHORUS 3.9 MG/DL (2.3-4.7); POTASSIUM 5.5 MMOL/L (3.6-5.0); SODIUM 140 MMOL/L (135-145); TOTAL PROTEIN 5.2 GM/DL (6.4-8.2)
[2018-11-19] MEDS: NS IV 1000 ML 1,000 ML IV SCH ×3 (04:43→17:13)
[2018-11-19 05:16] LABS: INR 12.4 (0.8-1.4)
[2018-11-19 05:17] LABS: PROTHROMBIN TIME PATIENT 95.6 SEC (12.2-14.7)
--- NOTE | 2018-11-19 05:27 | NUR ---
Dr. Blanco present on unit, informed of the critical lab results PT 95.6 and INR 12.4, orders placed for 1 unit of FFP and 5mg VItamin K PO
[2018-11-19] MEDS ORDERED: DEXTROSE 50% 50 ML (IMS) SYR IV NR (05:30)
[2018-11-19] MEDS ORDERED: SODIUM BICARB 8.4% 50 MEQ/50 ML (ABBOTT) SYR IV ONE (05:30)
[2018-11-19] MEDS ORDERED: inSUlin (REGULAR) HUMAN 1 UNIT/0.01 ML (CHARGE PER UNIT) IV ONE (05:30)
[2018-11-19] MEDS ORDERED: VITAMIN K 1 MG/ML ORAL SOLN 1 ML SYRINGE PO NR (05:30)
[2018-11-19] MEDS ORDERED: SOD POLYSTERENE 15 GM/60 ML (KAYEXALATE) UNIT DOSE PO NR (05:30)
[2018-11-19] MEDS ORDERED: FUROSEMIDE 40 MG/4 ML INJ (LASIX) IV ONE (05:30)
--- NOTE | 2018-11-19 05:37 | Pulmonary Progress Note ---
Subjective Time Seen by a Provider: 05:48 Subjective/Events-last exam Pt is more awake and alert today. Sepsis Event Evaluation Height, Weight, BMI Height: 6'0.00" Weight: 236lbs. 9.0oz. 107.734556qg; 32.1 BMI Method:Stated Focused Exam Lactate Level 11/18/18 05:20: Lactic Acid Level 1.31 Exam Exam Vital Signs Date Time Temp Pulse Resp B/P (MAP) Pulse Ox O2 Delivery O2 Flow Rate FiO2 11/19/18 05:00 98 15 129/48 (75) 100 Nasal Cannula 2.00 11/19/18 04:00 96.5 11/19/18 04:00 100 Nasal Cannula 2.00 11/19/18 04:00 96 14 113/77 (89) 100 Nasal Cannula 2.00 11/19/18 03:02 93 Nasal Cannula 2.00 11/19/18 03:00 90 16 117/66 (83) 93 Nasal Cannula 2.00 11/19/18 02:00 92 17 118/66 (83) 96 Nasal Cannula 2.00 11/19/18 01:00 98 16 120/62 (81) 100 Nasal Cannula 2.00 11/19/18 01:00 91 11/19/18 00:15 100 Nasal Cannula 2.00 11/19/18 00:15 97.8 11/19/18 00:00 96 18 119/74 (89) 100 Nasal Cannula 2.00 11/18/18 23:00 114 18 125/74 (91) 100 Nasal Cannula 2.00 11/18/18 22:00 108 17 138/92 (107) 100 Nasal Cannula 2.00 11/18/18 21:00 101 17 106/62 (77) 100 Nasal Cannula 2.00 11/18/18 20:45 100 Nasal Cannula 2.00 11/18/18 20:00 94 24 123/77 (92) 100 Nasal Cannula 2.00 11/18/18 19:49 98.0 112 18 96/69 (78) 100 2.00 11/18/18 19:30 100 Nasal Cannula 2.00 11/18/18 19:00 112 11/18/18 19:00 98 20 126/70 (88) 100 Nasal Cannula 2.00 11/18/18 18:07 98.7 11/18/18 18:00 97 21 112/66 (81) 100 Nasal Cannula 2.00 11/18/18 17:00 91 19 101/71 (81) 100 Nasal Cannula 2.00 11/18/18 16:56 98.9 11/18/18 16:00 101 20 87/57 (67) 100 Nasal Cannula 2.00 11/18/18 15:43 98.0 11/18/18 15:30 Nasal Cannula 2.00 11/18/18 15:19 100 Nasal Cannula 4.00 11/18/18 15:01 100 Nasal Cannula 4.00 11/18/18 15:00 96 21 89/63 (72) 100 Nasal Cannula 4.00 11/18/18 14:39 99.9 11/18/18 14:35 89 95 36 11/18/18 14:00 115 19 93/71 (78) 100 Nasal Cannula 4.00 11/18/18 13:42 99.4 11/18/18 13:14 100.6 11/18/18 13:00 98 19 107/61 (76) 100 Nasal Cannula 4.00 11/18/18 13:00 89 11/18/18 12:22 95 Nasal Cannula 4.00 11/18/18 12:00 87 13 95/74 (81) 100 Nasal Cannula 4.00 11/18/18 11:36 100.3 11/18/18 11:02 100.4 11/18/18 11:00 97 18 97/53 (68) 100 Nasal Cannula 4.00 11/18/18 10:20 100.3 11/18/18 10:00 95 19 104/64 (77) 94 Nasal Cannula 4.00 11/18/18 09:31 101.1 11/18/18 09:00 102 33 113/61 (78) 87 Nasal Cannula 4.00 11/18/18 08:43 100.9 11/18/18 08:07 101.5 11/18/18 08:00 93 24 101/55 (70) 100 Nasal Cannula 4.00 11/18/18 07:47 Nasal Cannula 4.00 11/18/18 07:24 101.1 110 18 111/74 (86) 100 Nasal Cannula 4.00 11/18/18 07:15 Nasal Cannula 4.00 11/18/18 07:00 113/57 (75) Nasal Cannula 4.00 11/18/18 07:00 125 11/18/18 06:56 101.6 96 19 95/72 (80) 100 Nasal Cannula 4.00 11/18/18 05:35 102.0 I & O 11/19/18 07:00 Intake Total 8876.67 ml Output Total 910 ml Balance 7966.67 ml Height & Weight Height: 6'0.00" Weight: 236lbs. 9.0oz. 107.811279wz; 32.1 BMI Method:Stated General Appearance: WD/WN, Moderate Distress HEENT: PERRL/EOMI, TMs Normal, Normal ENT Inspection, Pharynx Normal Neck: Full Range of Motion, Normal Inspection, Non Tender, Supple, Carotid Bruit Respiratory: Chest Non Tender, No Respiratory Distress, Crackles, Decreased Breath Sounds Cardiovascular: No Edema, No Gallop, No JVD, Normal Peripheral Pulses, Systolic Murmur, Irregularly Irregular, Tachycardia Capillary Refill: Less Than 3 Seconds Extremity: Normal Inspection, Non Tender, No Calf Tenderness, Pedal Edema Neurologic/Psychiatric: Alert, No Motor/Sensory Deficits, Normal Mood/Affect, Other (confused, following commands) Skin: Normal Color, Warm/Dry Lymphatic: No Adenopathy Results Lab Laboratory Tests 11/18/18 05:20 11/18/18 09:07 11/19/18 03:18 Assessment/Plan Assessment/Plan Severe Sepsis with immunosuppression -Severe sepsis protocol -Monitor -[place] cultures pending PNeumonia with immunosuppression -Agree with Vanco, and high dose Rocephin for possible meningitis - IVF -[place] culture. Hyperkalemia -Will repeat treatment this AM Metabolic encephalopathy/Lethargic - improved this AM - Doubt meningitis -Vanco, and Rocephin -Acyclovir -Check stat CT of head without contrast - no acute change -Check ammonia level - normal Acute on chronic renal failure -Monitor -IVF HX of CAD with CABG Afib RVR- -Cardizem gtt -consult cardiology Hypotension - resolved -Pt responded to IVF -Check echo Coumadin coagulopathy - worse today Hb is stable thus far -Monitor -Hold Coumadin - will give 1 unit of FFP and Vit K POOL BO DO Nov 19, 2018 05:37
[2018-11-19] MEDS ORDERED: POTASSIUM CL 10MEQ/50ML IVPB 50 ML IV SCH (06:00)
[2018-11-19] MEDS ORDERED: MAGNESIUM 1 GM/100 ML IVPB 100 ML IV SCH (06:00)
[2018-11-19] MEDS: KCL 20 MEQ TAB (K-DUR) PO SCH (06:34)
[2018-11-19] MEDS ORDERED: FUROSEMIDE 40 MG/4 ML INJ (LASIX) ONE (06:52)
[2018-11-19] MEDS ORDERED: inSUlin (REGULAR) HUMAN 1 UNIT/0.01 ML (CHARGE PER UNIT) ONE (06:53)
[2018-11-19] MEDS ORDERED: SODIUM BICARB 8.4% 50 MEQ/50 ML (ABBOTT) SYR ONE (06:57)
[2018-11-19] MEDS ORDERED: TROUGH ORDER-PHARMACY XX NR (07:00)
[2018-11-19] MEDS ORDERED: DEXTROSE 50% 50 ML (IMS) SYR ONE (07:09)
[2018-11-19] MEDS ORDERED: SOD POLYSTERENE 15 GM/60 ML (KAYEXALATE) UNIT DOSE ONE (07:10)
[2018-11-19] MEDS: ACETAMINOPHEN 500 MG TAB (TYLENOL) PO PRN ×2 (07:15→17:12)
[2018-11-19] MEDS: MAGNESIUM 1 GM/100 ML IVPB 100 ML IV SCH ×2 (07:15→08:26)
[2018-11-19] MEDS: cefTRIAXone FOR IV USE 2,000 MG in NS (IVPB) 50 ML IV SCH (07:49)
--- NOTE | 2018-11-19 08:19 | Diagnostic Imaging Report ---
INDICATION: Sepsis, pneumonia. TECHNIQUE: Single view chest 3:38 AM. CORRELATION STUDY: 11/18/2018 FINDINGS: Poststernotomy changes. Cardiac enlargement. Vasculature appears slightly increased from prior study. Scattered pulmonary parenchymal densities are present. This appears increased in the right perihilar and upper lobe distribution. IMPRESSION: 1. Cardiac enlargement with increasing vascular congestion. 2. Increasing opacity in the right perihilar region could be reflective of infiltrate versus edema. Followup imaging recommended. Dictated by: Dictated on workstation # [id number]
[2018-11-19] MEDS: rOPINIRole 1 MG (REQUIP) TABLET PO SCH ×2 (08:27→20:02)
[2018-11-19] MEDS: PREGABALIN 75 MG (LYRICA) CAP PO SCH ×2 (08:27→20:02)
--- NOTE | 2018-11-19 08:59 | Cardiology Progress Note ---
Subjective Date Seen by Provider: Nov 19, 2018 Time Seen by Provider: 08:57 Subjective/Events-last exam patient is laying down in bed, feeling better, reporting improvement, had few episodes of ventricular tachycardia last night. No full syncope. Review of Systems General: No Chills, No Night Sweats; Fatigue; No Malaise, No Appetite, No Other HEENT: No Head Aches, No Visual Changes, No Eye Pain, No Ear Pain, No Dysphasia , No Sinus Congestion, No Post Nasal Drip, No Sore Throat, No Other Pulmonary: Dyspnea; No Cough, No Pleuritic Chest Pain, No Other Cardiovascular: No: Chest Pain, Palpitations, Orthopnea, Paroxysmal Noc. Dyspnea, Edema, Lt Headedness, Other Focused Exam Lactate Level 11/18/18 05:20: Lactic Acid Level 1.31 Objective-Cardiology Exam Last Set of Vital Signs Vital Signs 11/18/18 11/19/18 11/19/18 11/19/18 14:35 06:00 07:01 07:47 Temp 97.3 Pulse 111 Resp 17 B/P (MAP) 110/76 (87) Pulse Ox 100 O2 Delivery Nasal Cannula O2 Flow Rate 2.00 FiO2 36 Capillary Refill : Less Than 3 Seconds I&O Intake and Output 11/18/18 23:59 Intake Total 9432.67 ml Output Total 485 ml Balance 8947.67 ml Intake Oral 120 ml IV Total 9312.67 ml Output Urine Total 485 ml # Bowel Movements 1 Daily Weight Change Unsure General: Alert, Oriented X3, Cooperative HEENT: Atraumatic, PERRLA Neck: Supple, No JVD, No Thyromegaly Lungs: Normal Air Movement, Other (bilateral rhonchi) Heart: Normal S1, Normal S2, No Murmurs, Other (irregular) Abdomen: Normal Bowel Sounds, Soft, No Tenderness, No Hepatosplenomegaly, No Masses Extremities: No Clubbing, No Cyanosis, No Edema, Normal Pulses, No Tenderness/ Swelling Skin: No Rashes, No Breakdown, No Significant Lesion Neuro: Normal Speech, Strength at 5/5 X4 Ext, Normal Tone, Sensation Intact Psych/Mental Status: Mental Status NL, Mood NL Results Lab Laboratory Tests 11/18/18 09:07 11/19/18 03:18 A/P-Cardiology Admission Diagnosis Paroxysmal atrial fibrillation Sepsis Coronary artery disease Change in mental status Assessment/Plan Paroxysmal atrial fibrillation, borderline tachycardia, slightly better, oral Cardizem drip, I will add IV Lopressor Ventricular tachycardia, sustained, could be secondary to hyperkalemia, currently potassium is improving, continue to monitor, continue on IV fluid and I am adding beta blockers IV and monitor tolerance and response, consult Dr. Chapman in AM Sepsis, febrile, continue on antibiotic, managed by primary care team Acute renal failure, history of chronic renal insufficiency, improving slowly. Continue to monitor Coumadin toxicity, INR 12.4, probably secondary to antibiotic and sepsis, continue to hold Coumadin, no sign of active bleeding. Continue to monitor Immunosuppression, history of liver transplant, continue to monitor Coronary artery disease, history of CABG 4 done in 1999, followed and managed by Dr Melendez Hypertension, monitor blood pressure while on Cardizem drip. 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 Clinical Quality Measures DVT/VTE Risk/Contraindication: Risk Factor Score Per Nursin RFS Level Per Nursing on Admit: 4+=Very High BLANCA TABARES MD Nov 19, 2018 08:59
[2018-11-19] MEDS ORDERED: meTOprolol 5 MG/5 ML (LOPRESSOR) VIAL IV NR (09:00)
[2018-11-19] MEDS: NS IV SCH (09:23)
[2018-11-19] MEDS: VANCOMYCIN 1 GM/NS 250 ML IVPB IV SCH ×2 (09:23)
[2018-11-19] MEDS: ACYCLOVIR IV SCH (09:23)
[2018-11-19] MEDS: NOREPINEPHRINE 4 MG in NS (IVPB) 250 ML IV SCH ×2 (09:27→20:50)
--- NOTE | 2018-11-19 10:06 | Progress Note-Hospitalist ---
Subjective HPI/CC On Admission Date Seen by Provider: Nov 19, 2018 Time Seen by Provider: 10:04 Pt is a 73yoCM with a PMH of CAD s/p CABG, liver transplant on chronic immune suppressants, and a-fib who presented to the ER this morning due to nausea and vomiting. He is unable to provide me any history at this time. The only question he answer appropriately for me was his name. ALl history is obtained through records. He apparently presented to the ER due to nausea and vomiting and was found to be febrile and in Subjective/Events-last exam Pt reports feeling much better today. No other complaints. Focused Exam Lactate Level 11/18/18 05:20: Lactic Acid Level 1.31 Objective Exam Vital Signs Vital Signs Date Time Temp Pulse Resp B/P (MAP) Pulse Ox O2 Delivery O2 Flow Rate FiO2 11/19/18 09:00 96 18 118/87 (97) 100 Nasal Cannula 2.00 11/19/18 07:47 97.3 11/18/18 14:35 36 Capillary Refill : Less Than 3 Seconds General Appearance: No Apparent Distress, WD/WN Respiratory: Lungs Clear, No Respiratory Distress Cardiovascular: Regular Rate, Rhythm, No Murmur Gastrointestinal: Normal Bowel Sounds, Non Tender, Soft Neurologic/Psychiatric: Alert, Oriented x3 Results/Procedures Lab Laboratory Tests 11/19/18 03:18 Patient resulted labs reviewed. Imaging: Reviewed Imaging Report Assessment/Plan Assessment and Plan Assess & Plan/Chief Complaint Severe sepsis Diagnosis/Problems Diagnosis/Problems (1) Severe sepsis Assessment & Plan: Improving Flu negative Continue on Vanc, Rocephin, and Acycolivir LP precluded by supratherapuetic INR Await cultures (2) Confusion Assessment & Plan: Much improved alert and oriented x4 now [employer] infection covered as above CT head negative No focal deficits (3) Atrial fibrillation with RVR Status: Acute Assessment & Plan: On cardizem gtt Cardiology consulted INR >12 today- given FFP and Vitamin K last echo reveals EF of 60% in 2016 Had run of v-tach this AM (4) Supratherapeutic INR Status: Acute Assessment & Plan: Hold home warfarin INR >12, treated as above (5) Acute kidney failure Status: Acute Assessment & Plan: with mild hyperkalemia treated with insulin and bicarb by Dr Blanco again this AM Continue IVF resuscitation Qualifiers: Acute renal failure type: unspecified Qualified Codes: N17.9 - Acute kidney failure, unspecified (6) CAD (coronary artery disease) Status: Chronic Assessment & Plan: Echo as above Cardiology consulted, appreciate recs Qualifiers: Coronary Disease-Associated Artery/Lesion type: bypass graft [place] vs. transplanted heart: [place] heart Associated angina: without angina Qualified Codes: I25.810 - Atherosclerosis of coronary artery bypass graft(s) without angina pectoris (7) Immunosuppression Status: Acute Assessment & Plan: Tacrolimus level pending due to live transplant Cover with broad spectrum abx due to immune suppresion Await resumption of immunosuppressants until level back Clinical Quality Measures DVT/VTE Risk/Contraindication: Risk Factor Score Per Nursin RFS Level Per Nursing on Admit: 4+=Very High ARIE DELGADO MD Nov 19, 2018 10:06
[2018-11-19] MEDS ORDERED: fentaNYL INJECTION 100 MCG/2 ML AMP ONE (11:55)
[2018-11-19] MEDS ORDERED: ONDANSETRON 4 MG/2 ML (SDV) Z0FRAN ONE (11:55)
[2018-11-19] MEDS: fentaNYL INJECTION 100 MCG/2 ML AMP IVP PRN ×7 (12:00→22:06)
[2018-11-19] MEDS: ONDANSETRON 4 MG/2 ML (SDV) Z0FRAN IVP PRN (12:00)
[2018-11-19 12:44] LABS: CALCIUM 9.3 MG/DL (8.5-10.1); CREATININE SERUM 2.43 MG/DL (0.60-1.30); POTASSIUM 4.6 MMOL/L (3.6-5.0)
--- NOTE | 2018-11-19 13:00 | NUR ---
PT'S REQUESTING PT'S ANTI-REJECTION MED BE RESTARTED. DR DELGADO INFORMED, DR WAITING FOR TACROLIMUS LAB RESULTS BEFORE RESTARTING MEDICATION. INFORMED.
[2018-11-20] VITALS (60 sets, daily range): BP systolic 91–154; BP diastolic 58–105
[2018-11-20] MEDS: NS IV 1000 ML 1,000 ML IV SCH ×3 (00:07→23:24)
[2018-11-20] MEDS: fentaNYL INJECTION 100 MCG/2 ML AMP IVP PRN ×2 (01:27→03:13)
[2018-11-20] MEDS: RT-ALBUTEROL/IPRATROPIUM 3 ML (DUONEB) VIAL INH SCH ×4 (02:35→19:47)
[2018-11-20] MEDS: KCL 20 MEQ TAB (K-DUR) PO SCH (02:55)
[2018-11-20 03:54] LABS: BASOPHILS % (AUTO) 1 % (0-10); EOSINOPHILS # (AUTO) 0.2 10^3/uL (0.0-0.3); EOSINOPHILS % (AUTO) 3 % (0-10); HEMATOCRIT 41 % (40-54); HEMOGLOBIN 12.4 G/DL (13.3-17.7); LYMPHOCYTES # (AUTO) 1.1 X 10^3 (1.0-4.0); LYMPHOCYTES % (AUTO) 17 % (12-44); MEAN CORPUSCULAR HEMOGLOBIN 25 PG (25-34); MEAN CORPUSCULAR HGB CONC 30 G/DL (32-36); MEAN CORPUSCULAR VOLUME 85 FL (80-99); MONOCYTES # (AUTO) 0.8 X 10^3 (0.0-1.0); MONOCYTES % (AUTO) 13 % (0-12); NEUTROPHILS # (AUTO) 4.3 X 10^3 (1.8-7.8); NEUTROPHILS % (AUTO) 66 % (42-75); PLATELET COUNT 210 10^3/uL (130-400); RED CELL DISTRIBUTION WIDTH 19.6 % (10.0-14.5); WHITE BLOOD COUNT 6.6 10^3/uL (4.3-11.0)
[2018-11-20 04:12] LABS: CALCIUM 8.7 MG/DL (8.5-10.1); CREATININE SERUM 2.09 MG/DL (0.60-1.30); MAGNESIUM 1.6 MG/DL (1.8-2.4); POTASSIUM 4.9 MMOL/L (3.6-5.0)
--- NOTE | 2018-11-20 05:29 | Pulmonary Progress Note ---
Subjective Time Seen by a Provider: 05:47 Subjective/Events-last exam Complains of abdominal pain and distention. Sepsis Event Evaluation Height, Weight, BMI Height: 6'0.00" Weight: 257lbs. 9.0oz. [id number]; 32.1 BMI Method:Stated Focused Exam Lactate Level 11/18/18 05:20: Lactic Acid Level 1.31 Exam Exam Vital Signs Date Time Temp Pulse Resp B/P (MAP) Pulse Ox O2 Delivery O2 Flow Rate FiO2 11/20/18 05:00 97 17 140/72 (94) 100 Nasal Cannula 2.00 11/20/18 04:45 108 20 122/58 (79) 100 Nasal Cannula 2.00 11/20/18 04:30 104 19 100/76 (84) 100 Nasal Cannula 2.00 11/20/18 04:15 97 16 109/63 (78) 100 Nasal Cannula 2.00 11/20/18 04:00 112 16 126/74 (91) 100 Nasal Cannula 2.00 11/20/18 03:45 123 18 127/64 (85) 99 Nasal Cannula 2.00 11/20/18 03:30 116 19 138/75 (96) 100 Nasal Cannula 2.00 11/20/18 03:15 120 23 138/94 (109) 99 Nasal Cannula 2.00 11/20/18 03:00 99 25 122/87 (99) 100 Nasal Cannula 2.00 11/20/18 02:45 102 18 125/65 (85) 100 Nasal Cannula 2.00 11/20/18 02:36 99 Nasal Cannula 2.00 11/20/18 02:30 106 23 127/82 (97) 97 Nasal Cannula 2.00 11/20/18 02:15 95 20 129/74 (92) 100 Nasal Cannula 2.00 11/20/18 02:00 86 23 133/71 (91) 100 Nasal Cannula 2.00 11/20/18 01:45 99 20 124/67 (86) 98 Nasal Cannula 2.00 11/20/18 01:30 92 26 120/71 (87) 100 Nasal Cannula 2.00 11/20/18 01:15 105 15 128/75 (92) 98 Nasal Cannula 2.00 11/20/18 01:00 98 11/20/18 01:00 101 23 141/86 (104) 96 Nasal Cannula 2.00 11/20/18 00:45 100 23 126/105 (112) 92 Nasal Cannula 2.00 11/20/18 00:30 81 17 119/64 (82) 92 Nasal Cannula 2.00 11/20/18 00:15 90 17 104/70 (81) 93 Nasal Cannula 2.00 11/20/18 00:00 97 Nasal Cannula 2.00 11/20/18 00:00 91 18 107/70 (82) 93 Nasal Cannula 2.00 11/19/18 23:45 92 19 95/68 (77) 93 Nasal Cannula 2.00 11/19/18 23:30 93 19 106/58 (74) 92 Nasal Cannula 2.00 11/19/18 23:15 89 20 119/77 (91) 90 Nasal Cannula 2.00 11/19/18 23:00 95 22 127/70 (89) 91 Nasal Cannula 2.00 11/19/18 22:45 101 18 112/88 (96) 92 Nasal Cannula 2.00 11/19/18 22:30 95 26 121/65 (83) 92 Nasal Cannula 2.00 11/19/18 22:15 98 26 92/53 (66) 90 Nasal Cannula 2.00 11/19/18 22:00 94 18 118/68 (85) 93 Nasal Cannula 2.00 11/19/18 21:45 93 22 90/68 (75) 93 Nasal Cannula 2.00 11/19/18 21:30 99 17 116/64 (81) 93 Nasal Cannula 2.00 11/19/18 21:15 107 19 102/61 (75) 90 Nasal Cannula 2.00 11/19/18 21:00 92 16 114/65 (81) 94 Nasal Cannula 2.00 11/19/18 20:45 95 19 100/80 (87) 93 Nasal Cannula 2.00 11/19/18 20:33 94 Nasal Cannula 2.00 11/19/18 20:30 87 19 102/66 (78) 92 Nasal Cannula 2.00 11/19/18 20:15 85 19 105/67 (80) 92 Nasal Cannula 2.00 11/19/18 20:04 99.5 11/19/18 20:00 101 22 122/118 (119) 92 Nasal Cannula 2.00 11/19/18 20:00 96 Nasal Cannula 2.00 11/19/18 19:45 89 15 105/74 (84) 94 Nasal Cannula 2.00 11/19/18 19:30 85 20 121/72 (88) 94 Nasal Cannula 2.00 11/19/18 19:15 101 21 122/78 (93) 94 Nasal Cannula 2.00 11/19/18 19:00 111 11/19/18 19:00 95 19 132/77 (95) 95 Nasal Cannula 2.00 11/19/18 18:00 101 26 127/80 (96) 96 Nasal Cannula 2.00 11/19/18 17:00 100 20 118/95 (103) 96 Nasal Cannula 2.00 11/19/18 16:00 98 26 133/78 (96) 94 Nasal Cannula 2.00 11/19/18 15:41 97.7 11/19/18 15:13 100 Nasal Cannula 2.00 11/19/18 15:04 95 Nasal Cannula 2.00 11/19/18 15:00 98 23 118/62 (80) 95 Nasal Cannula 2.00 11/19/18 14:11 97.9 101 135/66 11/19/18 14:00 98 18 135/66 (89) 100 Nasal Cannula 2.00 11/19/18 13:01 104 11/19/18 13:00 122 14 104/82 (89) 100 Nasal Cannula 2.00 11/19/18 12:10 97.2 105 123/91 Nasal Cannula 2.00 11/19/18 12:07 100 Nasal Cannula 2.00 11/19/18 12:00 116 17 126/81 (96) 100 Nasal Cannula 2.00 11/19/18 11:50 97.7 107 142/74 Nasal Cannula 2.00 11/19/18 11:19 97.7 11/19/18 11:00 120 13 142/74 (96) 100 Nasal Cannula 2.00 11/19/18 10:00 93 23 108/62 (77) 100 Nasal Cannula 2.00 11/19/18 09:00 96 18 118/87 (97) 100 Nasal Cannula 2.00 11/19/18 08:59 100 Nasal Cannula 2.00 11/19/18 08:00 101 18 111/60 (77) 100 Nasal Cannula 2.00 11/19/18 08:00 100 Nasal Cannula 2.00 11/19/18 07:47 97.3 11/19/18 07:01 111 11/19/18 07:00 125 20 111/74 (86) 100 Nasal Cannula 2.00 11/19/18 06:00 104 17 110/76 (87) 100 Nasal Cannula 2.00 I & O 11/20/18 07:00 Intake Total 4795.4 ml Output Total 1825 ml Balance 2970.4 ml Height & Weight Height: 6'0.00" Weight: 257lbs. 9.0oz. [id number]; 32.1 BMI Method:Stated General Appearance: WD/WN, Anxious, Moderate Distress HEENT: PERRL/EOMI, TMs Normal, Normal ENT Inspection, Pharynx Normal Neck: Full Range of Motion, Normal Inspection, Non Tender, Supple, Carotid Bruit Respiratory: No Respiratory Distress, Decreased Breath Sounds Cardiovascular: Regular Rate, Rhythm, No Murmur Capillary Refill: Less Than 3 Seconds Gastrointestinal: distended; No guarding, No rebound, No tenderness Extremity: Normal Inspection, Non Tender, No Calf Tenderness, Pedal Edema Neurologic/Psychiatric: Alert, Oriented x3 Skin: Normal Color, Warm/Dry Lymphatic: No Adenopathy Results Lab Laboratory Tests 11/18/18 09:07 11/19/18 03:18 11/19/18 12:08 11/20/18 03:45 Assessment/Plan Assessment/Plan Severe Sepsis with immunosuppression -Severe sepsis protocol -Monitor -[place] cultures pending PNeumonia with immunosuppression -Agree with Vanco, and high dose Rocephin for possible meningitis - Doubt Meningitis - IVF -[place] culture. Coumadin coagulopathy - worse today Hb is stable thus far -Repeat PT/INR pending -Monitor -Hold Coumadin Nonsustained Vtach -Monitor -Cardiology is following Abdominal pain with distension and Diarrhea -NG Tube -CHeck US of abd -Check amylase lipase -Dilauded 0.5mg IV Q4PRN (allergic to Morphine). D/C Fentanyl -S/P NG - Check Cdiff toxin Hx of liver transplant -restart home meds Hyperkalemia - resolved Metabolic encephalopathy/Lethargic - improved this AM - Doubt meningitis -Vanco, and Rocephin -Acyclovir -CT of head without contrast - no acute change -Check ammonia level - normal Acute on chronic renal failure -Monitor -IVF HX of CAD with CABG Afib RVR- -Cardizem gtt -consult cardiology Hypotension - resolved -Pt responded to IVF -Check echo POOL RECIO DO Nov 20, 2018 05:29
[2018-11-20] MEDS ORDERED: HYDROmorphone 2 MG/ML VIAL (DILAUDID) ONE (05:37)
[2018-11-20] MEDS: HYDROmorphone 2 MG/ML VIAL (DILAUDID) IV PRN ×4 (05:43→22:17)
[2018-11-20] MEDS: DILTIAZEM INJECTION 125 MG in NS (IVPB) 100 ML IV SCH ×2 (05:44→23:25)
[2018-11-20 06:00] LABS: ALANINE AMINOTRANSFERASE < 6 U/L (0-55); ALBUMIN 3.1 GM/DL (3.2-4.5); ALKALINE PHOSPHATASE 86 U/L (40-136); AMYLASE 37 U/L (25-125); BILIRUBIN,TOTAL 0.8 MG/DL (0.1-1.0); BUN/CREATININE RATIO 19; CALCIUM 8.7 MG/DL (8.5-10.1); CARBON DIOXIDE 21 MMOL/L (21-32); CHLORIDE 106 MMOL/L (98-107); CREATININE SERUM 2.11 MG/DL (0.60-1.30); GFR ESTIMATED 31; GLUCOSE 150 MG/DL (70-105); LIPASE 53 U/L (8-78); POTASSIUM 4.9 MMOL/L (3.6-5.0); SODIUM 140 MMOL/L (135-145); TOTAL PROTEIN 6.1 GM/DL (6.4-8.2)
[2018-11-20 06:05] LABS: INR 2.6 (0.8-1.4); PROTHROMBIN TIME PATIENT 28.3 SEC (12.2-14.7)
[2018-11-20] MEDS: inSUlin ASPART (NovoLOG) 1 UNIT/0.01 ML (CHARGE PER UNIT) SQ SCH ×4 (06:22→22:37)
--- NOTE | 2018-11-20 06:42 | Diagnostic Imaging Report ---
INDICATION: Nasogastric tube evaluation 0351 hours Upright portable AP view of the chest is obtained. Since the study of earlier in the day, there has been placement of nasogastric tube which passes below the diaphragm. Side port is at the level of the gastroesophageal junction. Cardiomegaly and bilateral airspace disease have not changed. There is no evidence of pneumothorax. IMPRESSION: Bilateral airspace disease which may be due to pulmonary edema or pneumonitis. Nasogastric tube appears to reach the mid stomach. Dictated by: Dictated on workstation # [id number]
[2018-11-20] MEDS: MAGNESIUM 1 GM/100 ML IVPB 100 ML IV SCH ×2 (06:47→07:53)
--- NOTE | 2018-11-20 07:08 | Diagnostic Imaging Report ---
INDICATION: Abdominal distention Upright portable AP view of the chest is obtained. Study is limited by patient body habitus. There is gaseous distention of the stomach. Numerous surgical clips project over the right upper quadrant of the abdomen. There is also gaseous distention throughout the colon to the level of the rectum. No definite free intraperitoneal gas, pneumatosis or pathologic abdominal calcification is noted. There may be mild left basilar atelectasis with associated generalized cardiomegaly. Atherosclerotic calcifications are noted. IMPRESSION: Nonspecific findings. No acute abnormality is identified although there is gaseous distention of stomach and colon. Note is also made of cardiomegaly and probable mild left basilar atelectasis. Dictated by: Dictated on workstation # [id number]
--- NOTE | 2018-11-20 07:21 | Diagnostic Imaging Report ---
EXAM: CHEST 1 VIEW, AP/PA ONLY INDICATION: Sepsis. Pneumonia. COMPARISON: Chest radiograph 11/19/2018. FINDINGS: Low lung volumes. Cardiomegaly. Persistent diffuse pulmonary infiltrates, greatest in the right upper lobe. No pleural effusion or pneumothorax. No acute osseous findings. IMPRESSION: Persistent diffuse pulmonary infiltrates, greatest in the right upper lobe. Dictated by: Dictated on workstation # [id number]
--- NOTE | 2018-11-20 08:16 | Cardiology Progress Note ---
Subjective Date Seen by Provider: Nov 20, 2018 Time Seen by Provider: 08:13 Subjective/Events-last exam patient is laying down in bed, complaining of generalized body ache and mainly tremor and pain in his feet and legs Review of Systems General: No Chills, No Night Sweats; Fatigue, Malaise; No Appetite, No Other HEENT: No Head Aches, No Visual Changes, No Eye Pain, No Ear Pain, No Dysphasia , No Sinus Congestion, No Post Nasal Drip, No Sore Throat, No Other Pulmonary: Dyspnea; No Cough, No Pleuritic Chest Pain, No Other Cardiovascular: Edema; No: Chest Pain, Palpitations, Orthopnea, Paroxysmal Noc. Dyspnea, Lt Headedness, Other Focused Exam Lactate Level 11/18/18 05:20: Lactic Acid Level 1.31 Objective-Cardiology Exam Last Set of Vital Signs Vital Signs 11/18/18 11/19/18 11/20/18 14:35 20:04 06:45 Temp 99.5 Pulse 106 Resp 21 B/P (MAP) 129/78 (95) Pulse Ox 100 O2 Delivery Nasal Cannula O2 Flow Rate 2.00 FiO2 36 Capillary Refill : Less Than 3 Seconds I&O Intake and Output 11/20/18 00:00 Intake Total 5436.4 ml Output Total 2250 ml Balance 3186.4 ml Intake Oral 1546 ml IV Total 3890.4 ml Output Urine Total 2250 ml # Bowel Movements 2 # Emeses 1 General: Alert, Oriented X3, Cooperative HEENT: Atraumatic, PERRLA Neck: Supple, No JVD, No Thyromegaly Lungs: Normal Air Movement, Other (bilateral rhonchi) Heart: Normal S1, Normal S2, No Murmurs, Other (irregular, borderline tachycardic) Abdomen: Normal Bowel Sounds, Soft, No Tenderness, No Hepatosplenomegaly, No Masses Extremities: No Clubbing, No Cyanosis, No Edema, Normal Pulses, No Tenderness/ Swelling Skin: No Rashes, No Breakdown, No Significant Lesion Neuro: Normal Speech, Strength at 5/5 X4 Ext, Normal Tone, Sensation Intact Psych/Mental Status: Mental Status NL, Mood NL Results Lab Laboratory Tests 11/19/18 12:08 11/20/18 03:45 A/P-Cardiology Admission Diagnosis Paroxysmal atrial fibrillation Sepsis Coronary artery disease Change in mental status Assessment/Plan Paroxysmal atrial fibrillation, borderline tachycardia, continue on Cardizem drip and titrate and add Lopressor Ventricular tachycardia, sustained, had another episode yesterday evening, started on IV Lopressor in addition to the Cardizem, consult Dr. Chapman Severe Sepsis, continue on antibiotic, managed by primary care team Acute renal failure, history of chronic renal insufficiency, improving slowly. Continue to monitor Coumadin toxicity, no active bleeding, INR is improving, continue to monitor Immunosuppression, history of liver transplant, continue to monitor Coronary artery disease, history of CABG 4 done in 1999, followed and managed by Dr Melendez Hypertension, monitor blood pressure while on Cardizem drip. 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 Clinical Quality Measures DVT/VTE Risk/Contraindication: Risk Factor Score Per Nursin RFS Level Per Nursing on Admit: 4+=Very High BLANCA TABARES MD Nov 20, 2018 08:16
[2018-11-20] MEDS: cefTRIAXone FOR IV USE 2,000 MG in NS (IVPB) 50 ML IV SCH (08:30)
[2018-11-20] MEDS: VANCOMYCIN 1 GM/NS 250 ML IVPB IV SCH ×2 (08:30)
[2018-11-20] MEDS: NS IV SCH (08:31)
[2018-11-20] MEDS: ACYCLOVIR IV SCH (08:31)
[2018-11-20] MEDS: meTOprolol 5 MG/5 ML (LOPRESSOR) VIAL IV SCH ×3 (08:49→18:24)
--- NOTE | 2018-11-20 09:55 | Diagnostic Imaging Report ---
PROCEDURE: US Abdomen, limited. TECHNIQUE: Multiple realtime grayscale images were obtained over the abdomen in various projections. INDICATION: Abdominal distention. FINDINGS: Survey of the abdomen shows a moderate amount of ascites present in all four quadrants of the abdomen. IMPRESSION: There is a moderate amount of ascites present. Dictated by: Dictated on workstation # [id number]
[2018-11-20] MEDS ORDERED: PATIENT MAY USE OWN MED,SINGLE MED PO SCH (11:15)
[2018-11-20] MEDS ORDERED: TACROLIMUS 0.5 MG PO SCH (11:29)
[2018-11-20] MEDS: PREGABALIN 75 MG (LYRICA) CAP PO SCH ×3 (11:43→22:37)
[2018-11-20] MEDS: rOPINIRole 1 MG (REQUIP) TABLET PO SCH ×2 (11:43→22:38)
[2018-11-20] MEDS ORDERED: TACR0.5C6 PO (11:59)
--- NOTE | 2018-11-20 12:01 | NUR ---
REQUESTED A LIST FROM THE [facility] HOWEVER IT IS UNCLEAR HOW LONG IT WILL TAKE BEFORE I RECEIVE THAT LIST. THE PATIENT STATES HIS DOES HIS MEDICATIONS, WHEN SHE ARRIVED I WENT OVER THE LIST WE HAD ON FILE FROM HIS ADMISSION IN AUGUST WITH HER. SHE VERIFIED WHAT CHANGES HAVE BEEN MADE AND AGREED IF I RECEIVE [facility] TO GO [facility] IT WITH ME AGAIN AT THAT TIME. CHANGES MADE: CELLCEPT WAS DISCONTINUED. HER WAS ON A SHORT ROUND OF INDOMETHACIN AT HIS LAST ADMISSION THAT IS COMPLETE NOW. PROGRAF WAS DECREASED TO 0.5MG BID. SHE VERIFIED THE PATIENT IS NOT TAKING ANY MEDICATION FOR SLEEP.
[2018-11-20] MEDS ORDERED: TRIAMCINOLONE 0.5% CR (KENALOG) 15 GM TUBE TP PRN (12:15)
--- NOTE | 2018-11-20 13:21 | Progress Note-Hospitalist ---
Progress Note Progress Notes/Assess & Plan Date Seen 11/20/18 Time Seen by Provider: 13:15 Assessment & Plan The patient is a 73-year-old white male who was admitted after he was brought to the emergency room with complaints of nausea and vomiting. He was apparently febrile: The emergency room. He had a past history of liver transplant and was on immunosuppressants. In addition atrial fibrillation was noted. He also had a history of coronary artery bypass grafting and subsequent stenting. He also had COPD and sleep apnea. His states he has been unable to tolerate the BiPAP prescribed for the sleep apnea. He is also diabetic. Abdominal sonogram shows moderate ascites. Physical exam: The is present and exhibits the most useful historical information and also concern. The patient followed simple commands but did not participate in the interview. Lungs showed sonorous tracheal sounds both on inspiration and expiration. CV was controlled rate but slightly irregular. It is noted that he is also trending towards hypertension. Extremities show no pedal edema. The abdomen is quite large but no fluid wave is appreciated. Impression: Concern for sepsis in an immunosuppressed patient. 2.hyperanticoagulation. 3.sleep apnea. Plan: mobilize the patient to bedside chair. 2.continue present medications. 3.removed NG tube and consider removal of Malin catheter. Focused Exam Lactate Level 11/18/18 05:20: Lactic Acid Level 1.31 PAM VALERA MD Nov 20, 2018 13:21
--- NOTE | 2018-11-20 13:25 | NUR ---
Pastoral Care Visit.
--- NOTE | 2018-11-20 13:46 | NUR ---
1340 NOTIFIED HEMAL OF PARACENTESIS ON TUESDAY PER IRENE IN SURGERY. ORDERS RECEIVED TO CONTINUE NG AT LIS AND NPO. WILL CONTINUE TO MONITOR.
--- NOTE | 2018-11-20 15:24 | Electrophysiology Consultation ---
HPI-Cardiology Cardiology Consultation: Date of Consultation 11/20/18 Date of Admission Attending Physician Corazon Cantu MD Admitting Physician Jamie Sanders DO Consulting Physician Alysa CHAPMAN MD HPI: Time Seen by a Provider: 15:24 Chief Complaint: Atrial fibrillation with rapid ventricular rate. This is a 73-year-old gentleman who has history of paroxysmal atrial fibrillation, CAD, CABG, liver transplant 8 years ago. He presents with altered mental status and possible sepsis. He was treated with broad-spectrum antibiotics. He is on warfarin for paroxysmal atrial fibrillation and was found to have supratherapeutic INR. He was also found to have significant ascites. Patient has a low albumin and very low AST, ALT. When I saw the patient today he was much more lucid. He denies any significant cardiac complaints. He does tell me that his ascites developed in the last 3 months. He denies any other significant GI symptoms. Review of Systems-Cardiology Review of Systems Constitutional: As described under HPI; No As described under HPI, No no symptoms reported, No chills, No fever, No lightheadedness Eyes: No As described under HPI, No no symptoms reported, No blindness, No blurred vision, No contact lenses, No drainage, No decreased acuity, No foreign body sensation, No pain, No vision change Ears/Nose/Throat: No As described under HPI, No no symptoms reported, No chronic hearing loss, No ear discharge, No ear pain, No nasal drainage, No ulcerations Respiratory: No no symptoms reported; As described under HPI; No As described under HPI, No cough, No orthopnea, No shortness of breath, No SOB with excertion Cardiovascular: No no symptoms reported; As described under HPI; No As described under HPI, No chest pain, No edema, No irregular heart rate, No lightheadedness; palpitations Gastrointestinal: No no symptoms reported; As described under HPI; No abdomen distended, No abdominal pain, No blood streaked bowels, No constipation, No diarrhea, No nausea, No vomiting, No stool coloration changes Genitourinary: No As described under HPI, No burning, No dysuria, No discharge , No frequency, No flank pain, No hematuria, No urgency Skin: No rash, No skin related problems, No ulcerations Psychiatric/Neurological: As described under HPI; No anxiety, No depression, No seizure, No focal weakness, No syncope Hematologic: No bleeding abnormalities [id number] Hx Patient Social History Marrital Status: Alcohol Use: Denies Use Recreational Drug Use: No Smoking Status: Former Smoker Former smoker/When Quit: Aug 14, 2000 2nd Hand Smoke Exposure: Yes Hospitalization with Isolation: Denies Physical Abuse Screen: No Sexual Abuse: No Immunizations Up To Date Tetanus Booster (TDap): Less than 5yrs Date of Pneumonia Vaccine: Aug 14, 2014 Date of Influenza Vaccine: Aug 14, 2018 Past Medical History PMH As described under Assessment. Family Medical History Family History: Cancer of mouth 19 MOTHER Completed stroke 19 MOTHER G8 BROTHER Myocardial infarction 19 FATHER Allergies and Home Medications Allergies Coded Allergies: meperidine (Verified Allergy, Unknown, 11/18/18) morphine (Verified Allergy, Unknown, 11/18/18) Home Medications Acetaminophen 500 Mg Tablet, 500-1,000 MG PO Q4H PRN for PAIN-MILD, (Reported) Allopurinol 100 Mg Tablet, 100 MG PO HS, (Reported) Diclofenac Sodium 100 Gm Gel..gram., 4 GM TP BID PRN for JOINT PAIN, (Reported) Docusate Sodium 100 Mg Capsule, 100 MG PO DAILY, (Reported) Furosemide 40 Mg Tablet, 120 MG PO DAILY, (Reported) TAKES 3 (40MG) TABLETS Insulin Aspart 100 Unit/1 Ml Susp, SQ AC, (Reported) 13 UNITS PLUS SLIDING SCALE Insulin Detemir 100 Unit/1 Ml Insuln.pen, 36 UNIT SQ 0800, (Reported) Insulin Detemir 100 Unit/1 Ml Insuln.pen, 16 UNIT SQ HS, (Reported) Lidocaine HCl 35 Gm Oint, TP TID, (Reported) Omeprazole 40 Mg Capsule.dr, 40 MG PO DAILY, (Reported) Oxycodone HCl 10 Mg Tablet, 20 MG PO DAILY, (Reported) TAKES 2 (10MG) TABLETS Oxycodone HCl 10 Mg Tablet, 30 MG PO HS, (Reported) TAKES 3 (10MG) TABLETS Pregabalin 150 Mg Capsule, 150 MG PO BID, (Reported) Ropinirole HCl 1 Mg Tablet, 1 MG PO BID, (Reported) Spironolactone 25 Mg Tablet, 25 MG PO DAILY, (Reported) Tacrolimus 0.5 Mg Capsule, 0.5 MG PO BID, (Reported) Triamcinolone Acetonide 15 Gm Cream..g., TP DAILY PRN for NEEDED, (Reported) Ursodiol 300 Mg Capsule, 300 MG PO BID, (Reported) Warfarin Sodium 5 Mg Tablet, 5 MG PO SuMoWeThSa, (Reported) Warfarin Sodium 7.5 Mg Tablet, 7.5 MG PO TuFr, (Reported) Patient Home Medication List Home Medication List Reviewed: Yes Physical Exam-Cardiology Physical Exam Vital Signs/I&O 11/21/18 11/21/18 11/21/18 11/21/18 02:45 03:00 03:07 03:15 Pulse 94 89 90 Resp 24 23 25 B/P (MAP) 113/77 (89) 147/73 (97) 130/67 (88) Pulse Ox 97 94 95 95 O2 Delivery Nasal Cannula Nasal Cannula Nasal Cannula Nasal Cannula O2 Flow Rate 2.00 2.00 2.00 2.00 11/21/18 11/21/18 11/21/18 11/21/18 03:30 03:45 04:00 04:00 Pulse 110 93 96 Resp 20 20 B/P (MAP) 125/68 (87) 124/67 (86) 131/71 (91) Pulse Ox 96 94 99 94 O2 Delivery Nasal Cannula Nasal Cannula Nasal Cannula Nasal Cannula O2 Flow Rate 2.00 2.00 2.00 2.00 11/21/18 11/21/18 11/21/18 11/21/18 04:00 04:15 04:30 04:45 Temp 98.1 Pulse 121 96 105 Resp 20 20 21 B/P (MAP) 134/69 (90) 137/74 (95) 132/83 (99) Pulse Ox 95 95 95 O2 Delivery Nasal Cannula Nasal Cannula Nasal Cannula O2 Flow Rate 2.00 2.00 2.00 11/21/18 11/21/18 11/21/18 11/21/18 05:00 05:15 05:30 05:45 Pulse 113 98 94 91 Resp 23 B/P (MAP) 145/81 (102) 122/66 (84) 137/79 (98) 131/66 (87) Pulse Ox 100 95 94 94 O2 Delivery Nasal Cannula Nasal Cannula Nasal Cannula Nasal Cannula O2 Flow Rate 2.00 2.00 2.00 2.00 11/21/18 11/21/18 11/21/18 11/21/18 06:00 06:15 06:30 06:45 Pulse 113 104 81 77 Resp 19 19 19 19 B/P (MAP) 124/71 (88) 136/63 (87) 117/68 (84) 124/66 (85) Pulse Ox 95 96 94 94 O2 Delivery Nasal Cannula Nasal Cannula Nasal Cannula Nasal Cannula O2 Flow Rate 2.00 2.00 2.00 2.00 11/21/18 11/21/18 11/21/18 11/21/18 07:00 07:00 08:00 08:00 Pulse 96 90 77 Resp 19 21 B/P (MAP) 118/75 (89) 115/62 (79) Pulse Ox 96 100 97 O2 Delivery Nasal Cannula Nasal Cannula Nasal Cannula O2 Flow Rate 2.00 2.00 2.00 11/21/18 11/21/18 11/21/18 11/21/18 08:39 08:44 09:00 10:00 Pulse 91 83 94 Resp 17 16 B/P (MAP) 118/67 (84) 127/67 (87) Pulse Ox 99 95 97 98 O2 Delivery Nasal Cannula Nasal Cannula Nasal Cannula O2 Flow Rate 2.00 2.00 2.00 FiO2 28 11/21/18 11/21/18 11/21/18 11:00 12:00 12:00 Pulse 95 107 Resp 20 25 B/P (MAP) 106/74 (85) 113/77 (89) Pulse Ox 100 97 O2 Delivery Nasal Cannula Nasal Cannula Nasal Cannula O2 Flow Rate 2.00 2.00 2.00 11/21/18 00:00 Output Total 950 ml Balance -950 ml Capillary Refill : Less Than 3 Seconds Constitutional: appears stated age, AAO x 3; No apparent distress; well- developed, well-nourished HEENT: PERRL; No normal ENT inspection, No TMs normal, No pharynx normal, No scleral icterus (R), No scleral icterus (L), No pale conjunctivae (R), No pale conjunctivae (L), No photophobia, No TM abnormal (R), No TM abnormal (L), No pharyngeal erythema, No tonsillar exudate, No other, No discharge, No EOMI; hearing is well preserved; No hard of hearing; oral hygience is good; No ulceration, No xanthelasmas are seen Neck: No non-tender, No full range of motion, No supple, No normal inspection, No carotid bruit, No limited range of motion, No lymphadenopathy (R), No lymphadenopathy (L), No tender lateral, No tender midline, No thyromegaly, No other; carotid pulses are 2 + bilaterally; No with good upstrokes Respiratory: No accessory muscle use, No respiratory distress, No chest tender , No chest expansion is symmetric; chest is bilaterally symmetric; No lungs clear to percussion; lungs clear to auscultation; No crackles, No rhonchi, No rales, No stridor, No wheezing, No pleural rub, No other Cardiovascular: No regular rate-rhythm; irregularly irregular; No extra beats, No parasternal heave is noted, No JVD, No edema, No bradycardia, No tachycardia , No point of maximal impulse, No cardiac thrills are palpable; S1 and S2; No gallop/S3, No gallop/S4, No diastolic murmur, No systolic murmur, No friction rub, No click, No other Gastrointestinal: No tender, No soft, No round, No distended, No pulsatile mass , No organomegaly, No guarding, No rebound, No tenderness, No hernia, No mass, No audible bowel sounds, No abnormal bowel sounds, No abdominal bruits, No spleenomegaly, No other Rectal: deferred Extremities: No normal range of motion, No non-tender, No normal inspection, No pedal edema, No calf tenderness, No normal capillary refill, No pelvis stable , No calf tenderness, No inflammation, No pedal edema, No slow capillary refill , No swelling, No other, No abrasion, No clubbing, No cyanosis, No ecchymosis, No laceration, No no lower extremity edema bilateral, No significant edema, No tenderness, No wound Neurologic/Psychiatric: no motor/sensory deficits, alert, normal mood/affect, oriented x 3, power is 5/5 both on sides Skin: warm/dry, pallor; No rash Data Review Labs Laboratory Tests 11/20/18 16:10: Glucometer 139H 11/20/18 22:32: Glucometer 132H 11/21/18 03:45: White Blood Count 9.2, Red Blood Count 4.76, Hemoglobin 12.2L, Hematocrit 40, Mean Corpuscular Volume 84, Mean Corpuscular Hemoglobin 26, Mean Corpuscular Hemoglobin Concent 31L, Red Cell Distribution Width 19.5H, Platelet Count 209, Mean Platelet Volume 9.3, Neutrophils (%) (Auto) 77H, Lymphocytes (%) (Auto) 12 , Monocytes (%) (Auto) 10, Eosinophils (%) (Auto) 1, Basophils (%) (Auto) 0, Neutrophils # (Auto) 7.0, Lymphocytes # (Auto) 1.1, Monocytes # (Auto) 0.9, Eosinophils # (Auto) 0.1, Basophils # (Auto) 0.0, Prothrombin Time 18.4H, INR Comment 1.5H, Sodium Level 142, Potassium Level 4.7, Chloride Level 110H, Carbon Dioxide Level 21, Anion Gap 11, Blood Urea Nitrogen 34H, Creatinine 1.82H , Estimat Glomerular Filtration Rate 37, BUN/Creatinine Ratio 19, Glucose Level 123H, Calcium Level 8.6, Phosphorus Level 2.8, Magnesium Level 1.9 11/21/18 11:14: Glucometer 92 Microbiology 11/18/18 Blood Culture - Preliminary, Resulted No growth 11/18/18 MRSA Screen - Final, Complete MRSA not isolated 11/18/18 Urine Culture - Final, Complete See Report ECG Impression ECG Initial ECG Impression: Atrial Fibrillation w/RVR A/P-Cardiology Assessment/Admission Diagnosis Chronic liver disease, status post liver transplant, Immunosuppressive therapy, CAD/CABG, Paroxysmal atrial fibrillation with rapid ventricular rate, Chronic kidney disease, Ascites, Wide-complex tachycardia Plan Atrial fibrillation with rapid ventricular rate: Rate significantly improved with Cardizem infusion. Patient is also on IV metoprolol. Wide-complex tachycardia on telemetry, could be nonsustained VT due to significant electrolyte abnormalities. No further significant ventricular ectopy in the last 24 hours. Supratherapeutic INR, hold warfarin. Concerned about decompensated liver disease. CAD/CABG: Defer to Dr. Yadav. Likely decompensated liver disease with ascites, defer to the primary team. Thank you for your consultation. Please call me if you have any questions. Sumaya Chapman MD, FACP, FACC, FSCAI, FHRS, CCDS Interventional Cardiology Cardiac Electrophysiology Vascular Medicine and Endovascular Interventions Clinical Quality Measures DVT/VTE Risk/Contraindication: Risk Factor Score Per Nursin RFS Level Per Nursing on Admit: 4+=Very High Alysa CHAPMAN MD Nov 20, 2018 3:24 pm
[2018-11-20] MEDS: oxyCODONE ER 10 MG (OxyCONTIN CR) TAB PO SCH ×3 (15:39→22:36)
[2018-11-20] MEDS: NOREPINEPHRINE 4 MG in NS (IVPB) 250 ML IV SCH (15:39)
[2018-11-20] MEDS: inSUlin ASPART (NovoLOG) 1 UNIT/0.01 ML (CHARGE PER UNIT) SC SCH (16:29)
[2018-11-20] MEDS ORDERED: warFARin 5 MG (COUMADIN) TAB PO SCH (18:00)
[2018-11-20] MEDS ORDERED: ACYCLOVIR IV SCH (21:00)
[2018-11-20] MEDS ORDERED: NS IV SCH (21:00)
--- NOTE | 2018-11-20 21:00 | NUR ---
ORDERS FROM DR VALERA TO REMOVE NG TUBE AND ADVANCE DIET TO CLEAR LIQUID, WILL CONTINUE TO MONITOR.
[2018-11-20] MEDS: TACROLIMUS 0.5 MG (PROGRAF) CAP NON-FORMULARY PO SCH (22:35)
[2018-11-20] MEDS: inSUlin DETERMIR 1 UNIT/0.01 ML (LEVEMIR) CHARGE PER UNIT SQ SCH (22:36)
[2018-11-20] MEDS: ONDANSETRON 4 MG/2 ML (SDV) Z0FRAN IVP PRN (22:38)
[2018-11-21] VITALS (45 sets, daily range): BP systolic 98–172; BP diastolic 62–104
[2018-11-21] MEDS: meTOprolol 5 MG/5 ML (LOPRESSOR) VIAL IV SCH ×2 (00:33→06:15)
[2018-11-21] MEDS: NOREPINEPHRINE 4 MG in NS (IVPB) 250 ML IV SCH (01:05)
[2018-11-21] MEDS: RT-ALBUTEROL/IPRATROPIUM 3 ML (DUONEB) VIAL INH SCH ×3 (03:07→21:24)
[2018-11-21] MEDS: HYDROmorphone 2 MG/ML VIAL (DILAUDID) IV PRN (03:18)
[2018-11-21 03:53] LABS: BASOPHILS % (AUTO) 0 % (0-10); EOSINOPHILS # (AUTO) 0.1 10^3/uL (0.0-0.3); EOSINOPHILS % (AUTO) 1 % (0-10); HEMATOCRIT 40 % (40-54); HEMOGLOBIN 12.2 G/DL (13.3-17.7); LYMPHOCYTES # (AUTO) 1.1 X 10^3 (1.0-4.0); LYMPHOCYTES % (AUTO) 12 % (12-44); MEAN CORPUSCULAR HEMOGLOBIN 26 PG (25-34); MEAN CORPUSCULAR HGB CONC 31 G/DL (32-36); MEAN CORPUSCULAR VOLUME 84 FL (80-99); MEAN PLATELET VOLUME 9.3 FL (7.4-10.4); MONOCYTES # (AUTO) 0.9 X 10^3 (0.0-1.0); MONOCYTES % (AUTO) 10 % (0-12); NEUTROPHILS % (AUTO) 77 % (42-75); PLATELET COUNT 209 10^3/uL (130-400); RED CELL DISTRIBUTION WIDTH 19.5 % (10.0-14.5); WHITE BLOOD COUNT 9.2 10^3/uL (4.3-11.0)
[2018-11-21 04:05] LABS: INR 1.5 (0.8-1.4); PROTHROMBIN TIME PATIENT 18.4 SEC (12.2-14.7)
[2018-11-21 04:13] LABS: CALCIUM 8.6 MG/DL (8.5-10.1); CREATININE SERUM 1.82 MG/DL (0.60-1.30); MAGNESIUM 1.9 MG/DL (1.8-2.4); POTASSIUM 4.7 MMOL/L (3.6-5.0)
[2018-11-21] MEDS: inSUlin ASPART (NovoLOG) 1 UNIT/0.01 ML (CHARGE PER UNIT) SQ SCH ×4 (04:29→21:00)
[2018-11-21] MEDS: NS IV 1000 ML 1,000 ML IV SCH ×2 (04:29→11:04)
[2018-11-21] MEDS: KCL 20 MEQ TAB (K-DUR) PO SCH (04:29)
--- NOTE | 2018-11-21 05:20 | Pulmonary Progress Note ---
Subjective Time Seen by a Provider: 07:06 Subjective/Events-last exam No complications noted. Sepsis Event Evaluation Height, Weight, BMI Height: 6'0.00" Weight: 267lbs. 9.0oz. 121.349210th; 32.1 BMI Method:Stated Focused Exam Lactate Level 11/18/18 05:20: Lactic Acid Level 1.31 Exam Exam Vital Signs Date Time Temp Pulse Resp B/P (MAP) Pulse Ox O2 Delivery O2 Flow Rate FiO2 11/21/18 04:45 105 21 132/83 (99) 95 Nasal Cannula 2.00 11/21/18 04:30 96 20 137/74 (95) 95 Nasal Cannula 2.00 11/21/18 04:15 121 20 134/69 (90) 95 Nasal Cannula 2.00 11/21/18 04:00 96 20 131/71 (91) 94 Nasal Cannula 2.00 11/21/18 03:45 93 20 124/67 (86) 94 Nasal Cannula 2.00 11/21/18 03:30 110 21 125/68 (87) 96 Nasal Cannula 2.00 11/21/18 03:15 90 25 130/67 (88) 95 Nasal Cannula 2.00 11/21/18 03:07 95 Nasal Cannula 2.00 11/21/18 03:00 89 23 147/73 (97) 94 Nasal Cannula 2.00 11/21/18 02:45 94 24 113/77 (89) 97 Nasal Cannula 2.00 11/21/18 02:30 95 19 136/77 (96) 98 Nasal Cannula 2.00 11/21/18 02:15 98 21 120/84 (96) 96 Nasal Cannula 2.00 11/21/18 02:00 98 19 141/77 (98) 97 Nasal Cannula 2.00 11/21/18 01:45 100 21 130/70 (90) 98 Nasal Cannula 2.00 11/21/18 01:30 101 21 128/65 (86) 95 Nasal Cannula 2.00 11/21/18 01:15 104 24 119/76 (90) 96 Nasal Cannula 2.00 11/21/18 01:00 94 26 135/73 (93) 95 Nasal Cannula 2.00 11/21/18 01:00 94 11/21/18 00:45 84 16 130/77 (94) 95 Nasal Cannula 2.00 11/21/18 00:30 112 25 109/63 (78) 95 Nasal Cannula 2.00 11/21/18 00:15 98 38 113/64 (80) 97 Nasal Cannula 2.00 11/21/18 00:00 98 27 98/63 (75) Nasal Cannula 2.00 11/21/18 00:00 99 Nasal Cannula 2.00 11/21/18 00:00 99.7 11/21/18 00:00 97 11/20/18 23:45 98 40 91/59 (70) Nasal Cannula 2.00 11/20/18 23:45 96 11/20/18 23:30 99 11/20/18 23:30 93 41 107/63 (78) Nasal Cannula 2.00 11/20/18 23:15 96 11/20/18 23:15 101 20 111/62 (78) Nasal Cannula 2.00 11/20/18 23:00 97 11/20/18 23:00 96 41 114/81 (92) Nasal Cannula 2.00 11/20/18 22:45 100 11/20/18 22:45 105 32 122/85 (97) Nasal Cannula 2.00 11/20/18 22:30 96 11/20/18 22:30 110 20 110/75 (87) Nasal Cannula 2.00 11/20/18 22:15 100 11/20/18 22:15 116 28 119/86 (97) Nasal Cannula 2.00 11/20/18 22:00 100 11/20/18 22:00 112 23 120/73 (89) Nasal Cannula 2.00 11/20/18 21:45 110 39 136/68 (90) Nasal Cannula 2.00 11/20/18 21:45 96 11/20/18 21:30 109 23 119/75 (90) Nasal Cannula 2.00 11/20/18 21:30 95 11/20/18 21:15 105 16 119/69 (86) Nasal Cannula 2.00 11/20/18 21:15 100 11/20/18 21:00 100 11/20/18 21:00 104 27 131/93 (106) Nasal Cannula 2.00 11/20/18 20:45 95 11/20/18 20:45 116 34 138/103 (115) Nasal Cannula 2.00 11/20/18 20:30 100 11/20/18 20:30 113 21 127/74 (91) Nasal Cannula 2.00 11/20/18 20:15 118 21 123/67 (85) Nasal Cannula 2.00 11/20/18 20:15 84 11/20/18 20:00 99 Nasal Cannula 2.00 11/20/18 20:00 95 11/20/18 20:00 106 22 122/73 (89) Nasal Cannula 2.00 11/20/18 20:00 98.1 11/20/18 19:47 97 Nasal Cannula 2.00 11/20/18 19:45 86 28 115/67 (83) Nasal Cannula 2.00 11/20/18 19:45 97 11/20/18 19:30 101 19 135/72 (93) Nasal Cannula 2.00 11/20/18 19:30 98 11/20/18 19:15 102 23 135/82 (99) Nasal Cannula 2.00 11/20/18 19:15 95 11/20/18 19:00 98 21 140/70 (93) Nasal Cannula 2.00 11/20/18 19:00 108 11/20/18 19:00 96 11/20/18 18:00 93 30 119/59 (79) 96 Nasal Cannula 2.00 11/20/18 17:00 105 21 137/80 (99) 100 Nasal Cannula 2.00 11/20/18 16:10 98 Nasal Cannula 2.00 11/20/18 16:00 98 Nasal Cannula 2.00 11/20/18 16:00 98.6 11/20/18 16:00 97 21 133/91 (105) 100 Nasal Cannula 2.00 11/20/18 15:00 88 20 135/71 (92) 98 Nasal Cannula 2.00 11/20/18 15:00 98.3 11/20/18 14:00 100 21 136/101 (113) 96 Nasal Cannula 2.00 11/20/18 13:00 103 23 146/87 (106) 100 Nasal Cannula 2.00 11/20/18 13:00 98.7 11/20/18 12:47 102 11/20/18 12:00 98.4 11/20/18 12:00 98 Nasal Cannula 2.00 11/20/18 12:00 97 23 144/76 (98) 100 Nasal Cannula 2.00 11/20/18 11:00 89 22 122/101 (108) 97 Nasal Cannula 2.00 11/20/18 10:00 100 19 139/80 (99) 96 Nasal Cannula 2.00 11/20/18 09:00 90 26 144/67 (92) 95 Nasal Cannula 2.00 11/20/18 08:30 99 Nasal Cannula 2.00 11/20/18 08:00 102 16 130/102 (111) 98 Nasal Cannula 2.00 11/20/18 08:00 98 Nasal Cannula 2.00 11/20/18 07:00 103 11/20/18 07:00 107 14 121/92 (102) 98 Nasal Cannula 2.00 11/20/18 06:45 106 21 129/78 (95) 100 Nasal Cannula 2.00 11/20/18 06:30 104 32 131/86 (101) 100 Nasal Cannula 2.00 11/20/18 06:15 104 19 109/91 (97) 100 Nasal Cannula 2.00 11/20/18 06:00 105 28 123/91 (102) 100 Nasal Cannula 2.00 11/20/18 05:45 112 25 154/88 (110) 97 Nasal Cannula 2.00 11/20/18 05:30 116 26 137/79 (98) 99 Nasal Cannula 2.00 I & O 11/21/18 07:00 Intake Total 905.4 ml Output Total 1525 ml Balance -619.6 ml Height & Weight Height: 6'0.00" Weight: 267lbs. 9.0oz. 121.628779eu; 32.1 BMI Method:Stated General Appearance: WD/WN, Anxious, Moderate Distress HEENT: PERRL/EOMI, TMs Normal, Normal ENT Inspection, Pharynx Normal Neck: Full Range of Motion, Normal Inspection, Non Tender, Supple, Carotid Bruit Respiratory: No Respiratory Distress, Decreased Breath Sounds Cardiovascular: Regular Rate, Rhythm, No Murmur Capillary Refill: Less Than 3 Seconds Gastrointestinal: distended; No guarding, No rebound, No tenderness Extremity: Normal Inspection, Non Tender, No Calf Tenderness, Pedal Edema Neurologic/Psychiatric: Alert, Oriented x3 Skin: Normal Color, Warm/Dry Lymphatic: No Adenopathy Results Lab Laboratory Tests 11/19/18 12:08 11/20/18 03:45 11/21/18 03:45 Assessment/Plan Assessment/Plan Severe Sepsis with immunosuppression -Severe sepsis protocol -Monitor -[place] cultures pending PNeumonia with immunosuppression -Agree with Vanco, and high dose Rocephin for possible meningitis - Doubt Meningitis - IVF -[place] culture. Coumadin coagulopathy - worse today Hb is stable thus far -Repeat PT/INR pending -Monitor -Hold Coumadin Nonsustained Vtach -Monitor -Cardiology is following Abdominal pain with distension and Diarrhea -NG Tube -CHeck US of abd -Check amylase lipase -Dilauded 0.5mg IV Q4PRN (allergic to Morphine). D/C Fentanyl -S/P NG - Check Cdiff toxin Hx of liver transplant -restart home meds Hyperkalemia - resolved Metabolic encephalopathy/Lethargic - improved this AM - Doubt meningitis -Vanco, and Rocephin -Acyclovir -CT of head without contrast - no acute change -Check ammonia level - normal Acute on chronic renal failure -Monitor -IVF HX of CAD with CABG Afib RVR- -Cardizem gtt -consult cardiology Hypotension - resolved -Pt responded to IVF -Check echo POOL RECIO DO Nov 21, 2018 05:20
--- NOTE | 2018-11-21 05:41 | Pulmonary Progress Note ---
Subjective Time Seen by a Provider: 06:25 Subjective/Events-last exam PT appears to be doing better. Still on Cardizem gtt. Cardiology is following. Sepsis Event Evaluation Height, Weight, BMI Height: 6'0.00" Weight: 267lbs. 9.0oz. [id number]; 32.1 BMI Method:Stated Exam Exam Vital Signs Date Time Temp Pulse Resp B/P (MAP) Pulse Ox O2 Delivery O2 Flow Rate FiO2 11/21/18 04:45 105 21 132/83 (99) 95 Nasal Cannula 2.00 11/21/18 04:30 96 20 137/74 (95) 95 Nasal Cannula 2.00 11/21/18 04:15 121 20 134/69 (90) 95 Nasal Cannula 2.00 11/21/18 04:00 96 20 131/71 (91) 94 Nasal Cannula 2.00 11/21/18 03:45 93 20 124/67 (86) 94 Nasal Cannula 2.00 11/21/18 03:30 110 21 125/68 (87) 96 Nasal Cannula 2.00 11/21/18 03:15 90 25 130/67 (88) 95 Nasal Cannula 2.00 11/21/18 03:07 95 Nasal Cannula 2.00 11/21/18 03:00 89 23 147/73 (97) 94 Nasal Cannula 2.00 11/21/18 02:45 94 24 113/77 (89) 97 Nasal Cannula 2.00 11/21/18 02:30 95 19 136/77 (96) 98 Nasal Cannula 2.00 11/21/18 02:15 98 21 120/84 (96) 96 Nasal Cannula 2.00 11/21/18 02:00 98 19 141/77 (98) 97 Nasal Cannula 2.00 11/21/18 01:45 100 21 130/70 (90) 98 Nasal Cannula 2.00 11/21/18 01:30 101 21 128/65 (86) 95 Nasal Cannula 2.00 11/21/18 01:15 104 24 119/76 (90) 96 Nasal Cannula 2.00 11/21/18 01:00 94 26 135/73 (93) 95 Nasal Cannula 2.00 11/21/18 01:00 94 11/21/18 00:45 84 16 130/77 (94) 95 Nasal Cannula 2.00 11/21/18 00:30 112 25 109/63 (78) 95 Nasal Cannula 2.00 11/21/18 00:15 98 38 113/64 (80) 97 Nasal Cannula 2.00 11/21/18 00:00 98 27 98/63 (75) Nasal Cannula 2.00 11/21/18 00:00 99 Nasal Cannula 2.00 11/21/18 00:00 99.7 11/21/18 00:00 97 11/20/18 23:45 98 40 91/59 (70) Nasal Cannula 2.00 11/20/18 23:45 96 11/20/18 23:30 99 11/20/18 23:30 93 41 107/63 (78) Nasal Cannula 2.00 11/20/18 23:15 96 11/20/18 23:15 101 20 111/62 (78) Nasal Cannula 2.00 11/20/18 23:00 97 11/20/18 23:00 96 41 114/81 (92) Nasal Cannula 2.00 11/20/18 22:45 100 11/20/18 22:45 105 32 122/85 (97) Nasal Cannula 2.00 11/20/18 22:30 96 11/20/18 22:30 110 20 110/75 (87) Nasal Cannula 2.00 11/20/18 22:15 100 11/20/18 22:15 116 28 119/86 (97) Nasal Cannula 2.00 11/20/18 22:00 100 11/20/18 22:00 112 23 120/73 (89) Nasal Cannula 2.00 11/20/18 21:45 110 39 136/68 (90) Nasal Cannula 2.00 11/20/18 21:45 96 11/20/18 21:30 109 23 119/75 (90) Nasal Cannula 2.00 11/20/18 21:30 95 11/20/18 21:15 105 16 119/69 (86) Nasal Cannula 2.00 11/20/18 21:15 100 11/20/18 21:00 100 11/20/18 21:00 104 27 131/93 (106) Nasal Cannula 2.00 11/20/18 20:45 95 11/20/18 20:45 116 34 138/103 (115) Nasal Cannula 2.00 11/20/18 20:30 100 11/20/18 20:30 113 21 127/74 (91) Nasal Cannula 2.00 11/20/18 20:15 118 21 123/67 (85) Nasal Cannula 2.00 11/20/18 20:15 84 11/20/18 20:00 99 Nasal Cannula 2.00 11/20/18 20:00 95 11/20/18 20:00 106 22 122/73 (89) Nasal Cannula 2.00 11/20/18 20:00 98.1 11/20/18 19:47 97 Nasal Cannula 2.00 11/20/18 19:45 86 28 115/67 (83) Nasal Cannula 2.00 11/20/18 19:45 97 11/20/18 19:30 101 19 135/72 (93) Nasal Cannula 2.00 11/20/18 19:30 98 11/20/18 19:15 102 23 135/82 (99) Nasal Cannula 2.00 11/20/18 19:15 95 11/20/18 19:00 98 21 140/70 (93) Nasal Cannula 2.00 11/20/18 19:00 108 11/20/18 19:00 96 11/20/18 18:00 93 30 119/59 (79) 96 Nasal Cannula 2.00 11/20/18 17:00 105 21 137/80 (99) 100 Nasal Cannula 2.00 11/20/18 16:10 98 Nasal Cannula 2.00 11/20/18 16:00 98 Nasal Cannula 2.00 11/20/18 16:00 98.6 11/20/18 16:00 97 21 133/91 (105) 100 Nasal Cannula 2.00 11/20/18 15:00 88 20 135/71 (92) 98 Nasal Cannula 2.00 11/20/18 15:00 98.3 11/20/18 14:00 100 21 136/101 (113) 96 Nasal Cannula 2.00 11/20/18 13:00 103 23 146/87 (106) 100 Nasal Cannula 2.00 11/20/18 13:00 98.7 11/20/18 12:47 102 11/20/18 12:00 98.4 11/20/18 12:00 98 Nasal Cannula 2.00 11/20/18 12:00 97 23 144/76 (98) 100 Nasal Cannula 2.00 11/20/18 11:00 89 22 122/101 (108) 97 Nasal Cannula 2.00 11/20/18 10:00 100 19 139/80 (99) 96 Nasal Cannula 2.00 11/20/18 09:00 90 26 144/67 (92) 95 Nasal Cannula 2.00 11/20/18 08:30 99 Nasal Cannula 2.00 11/20/18 08:00 102 16 130/102 (111) 98 Nasal Cannula 2.00 11/20/18 08:00 98 Nasal Cannula 2.00 11/20/18 07:00 103 11/20/18 07:00 107 14 121/92 (102) 98 Nasal Cannula 2.00 11/20/18 06:45 106 21 129/78 (95) 100 Nasal Cannula 2.00 11/20/18 06:30 104 32 131/86 (101) 100 Nasal Cannula 2.00 11/20/18 06:15 104 19 109/91 (97) 100 Nasal Cannula 2.00 11/20/18 06:00 105 28 123/91 (102) 100 Nasal Cannula 2.00 11/20/18 05:45 112 25 154/88 (110) 97 Nasal Cannula 2.00 I & O 11/21/18 07:00 Intake Total 905.4 ml Output Total 1525 ml Balance -619.6 ml Height & Weight Height: 6'0.00" Weight: 267lbs. 9.0oz. 121.227725ei; 32.1 BMI Method:Stated General Appearance: No Apparent Distress, WD/WN, Anxious HEENT: PERRL/EOMI, TMs Normal, Normal ENT Inspection, Pharynx Normal Neck: Full Range of Motion, Normal Inspection, Non Tender, Supple, Carotid Bruit Respiratory: No Respiratory Distress, Decreased Breath Sounds Cardiovascular: Regular Rate, Rhythm, No Murmur Capillary Refill: Less Than 3 Seconds Gastrointestinal: distended; No guarding, No rebound, No tenderness Extremity: Normal Inspection, Non Tender, No Calf Tenderness, Pedal Edema Neurologic/Psychiatric: Alert, Oriented x3 Skin: Normal Color, Warm/Dry Lymphatic: No Adenopathy Results Lab Laboratory Tests 11/19/18 12:08 11/20/18 03:45 11/21/18 03:45 Assessment/Plan Assessment/Plan Severe Sepsis with immunosuppression -Severe sepsis protocol -Monitor -[place] cultures pending PNeumonia with immunosuppression -D/C Vanco, and acyclovir , Continue Rocephin - Doubt Meningitis -KVO IVF -[place] culture. Ascites -Paracentesis scheduled for Wed. Coumadin coagulopathy - worse today Hb is stable thus far -Repeat PT/INR pending -Monitor -Hold Coumadin Nonsustained Vtach -Monitor -Cardiology is following Abdominal pain with distension and Diarrhea -NG Tube -CHeck US of abd -Check amylase lipase -Dilauded 0.5mg IV Q4PRN (allergic to Morphine). D/C Fentanyl -S/P NG - Check Cdiff toxin Hx of liver transplant -restart home meds Hyperkalemia - resolved Acute on chronic renal failure -Monitor -IVF HX of CAD with CABG Afib RVR- -Cardizem gtt -consult cardiology POOL RECIO DO Nov 21, 2018 05:41
[2018-11-21] MEDS ORDERED: TROUGH ORDER-PHARMACY XX NR (07:00)
--- NOTE | 2018-11-21 07:04 | Cardiology Progress Note ---
Subjective Date Seen by Provider: Nov 21, 2018 Time Seen by Provider: 07:02 Subjective/Events-last exam patient is laying down in bed, feeling better. Heart rate is better controlled. No arrhythmia was noted last night. Review of Systems General: No Chills, No Night Sweats; Fatigue, Malaise; No Appetite, No Other HEENT: No Head Aches, No Visual Changes, No Eye Pain, No Ear Pain, No Dysphasia , No Sinus Congestion, No Post Nasal Drip, No Sore Throat, No Other Pulmonary: Dyspnea; No Cough, No Pleuritic Chest Pain, No Other Cardiovascular: Edema; No: Chest Pain, Palpitations, Orthopnea, Paroxysmal Noc. Dyspnea, Lt Headedness, Other Objective-Cardiology Exam Last Set of Vital Signs Vital Signs 11/18/18 11/21/18 14:35 06:45 Pulse 77 Resp 19 B/P (MAP) 124/66 (85) Pulse Ox 94 O2 Delivery Nasal Cannula O2 Flow Rate 2.00 FiO2 36 Capillary Refill : Less Than 3 Seconds I&O Intake and Output 11/21/18 00:00 Intake Total 1940.4 ml Output Total 1600 ml Balance 340.4 ml Intake Oral 150 ml IV Total 1790.4 ml Output Urine Total 1600 ml General: Alert, Oriented X3, Cooperative HEENT: Atraumatic, PERRLA Neck: Supple, No JVD, No Thyromegaly Lungs: Normal Air Movement, Other (bilateral rhonchi) Heart: Normal S1, Normal S2, No Murmurs, Other (irregular, borderline tachycardic) Abdomen: Normal Bowel Sounds, Soft, No Tenderness, No Hepatosplenomegaly, No Masses Extremities: No Clubbing, No Cyanosis, No Edema, Normal Pulses, No Tenderness/ Swelling Skin: No Rashes, No Breakdown, No Significant Lesion Neuro: Normal Speech, Strength at 5/5 X4 Ext, Normal Tone, Sensation Intact Psych/Mental Status: Mental Status NL, Mood NL Results Lab Laboratory Tests 11/21/18 03:45 A/P-Cardiology Admission Diagnosis Paroxysmal atrial fibrillation Sepsis Coronary artery disease Change in mental status Assessment/Plan Paroxysmal atrial fibrillation, heart rate is better controlled. Tolerating medication well. Blood pressure is more stable. Ventricular tachycardia, sustained, had another episode yesterday evening, started on IV Lopressor in addition to the Cardizem, Dr. Khalid was consulted Severe Sepsis, improving, feeling better Acute renal failure, history of chronic renal insufficiency, improving slowly. Continue to monitor Coumadin toxicity, no active bleeding, INR is better, start anticoagulation Immunosuppression, history of liver transplant, continue to monitor Coronary artery disease, history of CABG 4 done in 1999, followed and managed by Dr Melendez Hypertension, monitor blood pressure while on Cardizem drip. 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 Clinical Quality Measures DVT/VTE Risk/Contraindication: Risk Factor Score Per Nursin RFS Level Per Nursing on Admit: 4+=Very High BLANCA TABARES MD Nov 21, 2018 07:04
[2018-11-21] MEDS: inSUlin ASPART (NovoLOG) 1 UNIT/0.01 ML (CHARGE PER UNIT) SC SCH ×3 (07:38→16:27)
[2018-11-21] MEDS ORDERED: inSUlin DETERMIR 1 UNIT/0.01 ML (LEVEMIR) CHARGE PER UNIT SQ SCH (08:00)
[2018-11-21] MEDS: rOPINIRole 1 MG (REQUIP) TABLET PO SCH ×2 (08:06→21:00)
[2018-11-21] MEDS: DOCUSATE SODIUM 100 MG (COLACE) CAP PO SCH (08:07)
[2018-11-21] MEDS: oxyCODONE ER 20 MG (OxyCONTIN CR) TAB PO SCH (08:08)
[2018-11-21] MEDS: SPIRONOLACTONE 25 MG (ALDACTONE) TAB PO SCH (08:08)
[2018-11-21] MEDS: FUROSEMIDE 40 MG (LASIX) TAB PO SCH (08:09)
[2018-11-21] MEDS: PREGABALIN 75 MG (LYRICA) CAP PO SCH ×4 (08:10→21:34)
[2018-11-21] MEDS: cefTRIAXone FOR IV USE 2,000 MG in NS (IVPB) 50 ML IV SCH (08:12)
[2018-11-21] MEDS: TACROLIMUS 0.5 MG (PROGRAF) CAP NON-FORMULARY PO SCH ×2 (08:18→21:00)
[2018-11-21] MEDS ORDERED: PANTOPRAZOLE 40 MG (PROTONIX) TAB PO SCH (09:00)
--- NOTE | 2018-11-21 09:14 | Diagnostic Imaging Report ---
Indication: Pneumonia, sepsis. Comparison: 11/20/2018. Findings: Single view of the chest demonstrates interval removal of the NG tube. The heart remains prominent with bilateral interstitial infiltrates. There is no pneumothorax or large effusion. Sternal wires midline. Osseous structures are age-appropriate. Impression: Unchanged aeration of lungs. Dictated by: Dictated on workstation # [id number]
[2018-11-21] MEDS: meTOprolol TARTRATE 50 MG (LOPRESSOR) TAB PO SCH ×2 (11:33→21:00)
[2018-11-21] MEDS: URSODIOL 300 MG PO SCH ×2 (13:15→21:00)
--- NOTE | 2018-11-21 14:42 | Cardiology Progress Note ---
Cardiology SOAP Progress Note Subjective: No cardiac complaints. Objective: I&O/Vital Signs 11/21/18 11/21/18 11/21/18 11/21/18 02:45 03:00 03:07 03:15 Pulse 94 89 90 Resp 24 23 25 B/P (MAP) 113/77 (89) 147/73 (97) 130/67 (88) Pulse Ox 97 94 95 95 O2 Delivery Nasal Cannula Nasal Cannula Nasal Cannula Nasal Cannula O2 Flow Rate 2.00 2.00 2.00 2.00 11/21/18 11/21/18 11/21/18 11/21/18 03:30 03:45 04:00 04:00 Pulse 110 93 96 Resp 20 B/P (MAP) 125/68 (87) 124/67 (86) 131/71 (91) Pulse Ox 96 94 99 94 O2 Delivery Nasal Cannula Nasal Cannula Nasal Cannula Nasal Cannula O2 Flow Rate 2.00 2.00 2.00 2.00 11/21/18 11/21/18 11/21/18 11/21/18 04:00 04:15 04:30 04:45 Temp 98.1 Pulse 121 96 105 Resp B/P (MAP) 134/69 (90) 137/74 (95) 132/83 (99) Pulse Ox 95 95 95 O2 Delivery Nasal Cannula Nasal Cannula Nasal Cannula O2 Flow Rate 2.00 2.00 2.00 11/21/18 11/21/18 11/21/18 11/21/18 05:00 05:15 05:30 05:45 Pulse 113 98 94 91 Resp B/P (MAP) 145/81 (102) 122/66 (84) 137/79 (98) 131/66 (87) Pulse Ox 100 95 94 94 O2 Delivery Nasal Cannula Nasal Cannula Nasal Cannula Nasal Cannula O2 Flow Rate 2.00 2.00 2.00 2.00 11/21/18 11/21/18 11/21/18 11/21/18 06:00 06:15 06:30 06:45 Pulse 113 104 81 77 Resp B/P (MAP) 124/71 (88) 136/63 (87) 117/68 (84) 124/66 (85) Pulse Ox 95 96 94 94 O2 Delivery Nasal Cannula Nasal Cannula Nasal Cannula Nasal Cannula O2 Flow Rate 2.00 2.00 2.00 2.00 11/21/18 11/21/18 11/21/18 11/21/18 07:00 07:00 08:00 08:00 Pulse 96 90 77 Resp 19 21 B/P (MAP) 118/75 (89) 115/62 (79) Pulse Ox 96 100 97 O2 Delivery Nasal Cannula Nasal Cannula Nasal Cannula O2 Flow Rate 2.00 2.00 2.00 11/21/18 11/21/18 11/21/18 11/21/18 08:39 08:44 09:00 10:00 Pulse 91 83 94 Resp 17 16 B/P (MAP) 118/67 (84) 127/67 (87) Pulse Ox 99 95 97 98 O2 Delivery Nasal Cannula Nasal Cannula Nasal Cannula O2 Flow Rate 2.00 2.00 2.00 FiO2 28 11/21/18 11/21/18 11/21/18 11:00 12:00 12:00 Pulse 95 107 Resp 20 25 B/P (MAP) 106/74 (85) 113/77 (89) Pulse Ox 100 97 O2 Delivery Nasal Cannula Nasal Cannula Nasal Cannula O2 Flow Rate 2.00 2.00 2.00 11/21/18 00:00 Output Total 950 ml Balance -950 ml Weight (Pounds): 269 Weight (Ounces): 9.0 Weight (Calculated Kilograms): 122.532278 Constitutional: appears stated age, AAO x 3; No apparent distress; well- developed, well-nourished Respiratory: No accessory muscle use, No respiratory distress, No chest tender , No chest expansion is symmetric; chest is bilaterally symmetric; No lungs clear to percussion; lungs clear to auscultation; No crackles, No rhonchi, No rales, No stridor, No wheezing, No pleural rub, No other Cardiovascular: No regular rate-rhythm; irregularly irregular; No extra beats, No parasternal heave is noted, No JVD, No edema, No bradycardia, No tachycardia , No point of maximal impulse, No cardiac thrills are palpable; S1 and S2; No gallop/S3, No gallop/S4, No diastolic murmur, No systolic murmur, No friction rub, No click, No other Gastrointestional: No tender, No soft, No round, No distended, No pulsatile mass, No organomegaly, No guarding, No rebound, No tenderness, No hernia, No mass, No audible bowel sounds, No abnormal bowel sounds, No abdominal bruits, No spleenomegaly, No other Extremities: No normal range of motion, No non-tender, No normal inspection, No pedal edema, No calf tenderness, No normal capillary refill, No pelvis stable , No calf tenderness, No inflammation, No pedal edema, No slow capillary refill , No swelling, No other, No abrasion, No clubbing, No cyanosis, No ecchymosis, No laceration, No no lower extremity edema bilateral, No significant edema, No tenderness, No wound Neurologic/Psychiatric: no motor/sensory deficits, alert, normal mood/affect, oriented x 3, power is 5/5 both on sides Skin: warm/dry, pallor; No rash Results/Procedures: Labs Laboratory Tests 11/20/18 16:10: Glucometer 139H 11/20/18 22:32: Glucometer 132H 11/21/18 03:45: White Blood Count 9.2, Red Blood Count 4.76, Hemoglobin 12.2L, Hematocrit 40, Mean Corpuscular Volume 84, Mean Corpuscular Hemoglobin 26, Mean Corpuscular Hemoglobin Concent 31L, Red Cell Distribution Width 19.5H, Platelet Count 209, Mean Platelet Volume 9.3, Neutrophils (%) (Auto) 77H, Lymphocytes (%) (Auto) 12 , Monocytes (%) (Auto) 10, Eosinophils (%) (Auto) 1, Basophils (%) (Auto) 0, Neutrophils # (Auto) 7.0, Lymphocytes # (Auto) 1.1, Monocytes # (Auto) 0.9, Eosinophils # (Auto) 0.1, Basophils # (Auto) 0.0, Prothrombin Time 18.4H, INR Comment 1.5H, Sodium Level 142, Potassium Level 4.7, Chloride Level 110H, Carbon Dioxide Level 21, Anion Gap 11, Blood Urea Nitrogen 34H, Creatinine 1.82H , Estimat Glomerular Filtration Rate 37, BUN/Creatinine Ratio 19, Glucose Level 123H, Calcium Level 8.6, Phosphorus Level 2.8, Magnesium Level 1.9 11/21/18 11:14: Glucometer 92 Microbiology 11/18/18 Blood Culture - Preliminary, Resulted No growth 11/18/18 MRSA Screen - Final, Complete MRSA not isolated 11/18/18 Urine Culture - Final, Complete See Report A/P: Assessment/Dx: Chronic liver disease, status post liver transplant, Immunosuppressive therapy, CAD/CABG, Paroxysmal atrial fibrillation with rapid ventricular rate, Chronic kidney disease, Ascites, Wide-complex tachycardia Plan: Atrial fibrillation with rapid ventricular rate: Resolved. Still in atrial fibrillation with controlled ventricular rate. Rate significantly improved with Cardizem infusion. DC Cardizem infusion and start Cardizem by mouth 120 mg daily. Wide-complex tachycardia on telemetry, could be nonsustained VT due to significant electrolyte abnormalities. No further significant ventricular ectopy in the last 36 hours. Supratherapeutic INR, hold warfarin. Concerned about decompensated liver disease. CAD/CABG: Defer to Dr. Yadav. Likely decompensated liver disease with ascites, defer to the primary team. Thank you for your consultation. Please call me if you have any questions. Sumaya Chapman MD, FACP, FACC, FSCAI, FHRS, CCDS Interventional Cardiology Cardiac Electrophysiology Vascular Medicine and Endovascular Interventions Alysa CHAPMAN MD Nov 21, 2018 2:42 pm
--- NOTE | 2018-11-21 16:25 | Progress Note-Hospitalist ---
Progress Note Progress Notes/Assess & Plan Date Seen 11/21/18 Time Seen by Provider: 16:21 Assessment & Plan The patient's states that he has had a better day today. he spent some time sitting in the bedside chair. He has taken some fluids by mouth. It is thought that Dr. Godinez is going to perform a paracentesis tomorrow. To that and he will not be placed back on Coumadin until that is completed. Physical exam: He is more responsive. Lungs are clear to auscultation. CV is irregular and consistent with atrial fibrillation. Abdomen is large but does not have a fluid wave. Extremities show 1+ pretibial edema and discoloration consistent with venous stasis. Impression: Previous liver transplant with immune suppression. 2.apparent sepsis. 3.hyper anticoagulation now controlled. 4.atrial fibrillation. Plan: Discontinue Malin catheter. Await decision on paracentesis PAM VALERA MD Nov 21, 2018 16:25
[2018-11-21] MEDS ORDERED: DEXTROSE 50% 50 ML (IMS) SYR ONE (17:00)
--- NOTE | 2018-11-21 17:09 | NUR ---
Initial blood sugar 45, level called to Dr. Esparza and orange juice with 1tsp sugar added given. Patient able to take but does have difficulty swallowing. Recheck blood sugar and is 41. Per protocol 25mL of amp D50 given through IV. Will recheck blood sugar in 30 minutes and reevaluate.
[2018-11-21] MEDS ORDERED: DEXTROSE 50% 50 ML (IMS) SYR IV NR (17:15)
[2018-11-21] MEDS: warFARin 5 MG (COUMADIN) TAB PO SCH (17:36)
[2018-11-21] MEDS ORDERED: warFARin 7.5 MG (COUMADIN) TAB PO SCH (18:00)
[2018-11-21] MEDS: D5 NS 1000 ML IV SOLUTION 1,000 ML IV ONE ×2 (18:45→21:33)
[2018-11-21] MEDS ORDERED: meTOprolol 5 MG/5 ML (LOPRESSOR) VIAL IV NR (19:30)
--- NOTE | 2018-11-21 19:57 | Diagnostic Imaging Report ---
PROCEDURE: CT abdomen and pelvis without contrast. TECHNIQUE: Multiple contiguous axial images were obtained through the abdomen and pelvis without the use of intravenous contrast. INDICATION: Abdominal distention. Correlation is made with prior CT from 07/02/2015. Imaging through the lung bases demonstrates bibasilar infiltrates with bilateral pleural effusions, slightly greater on the right. A moderate amount of perihepatic and perisplenic ascites is seen. Moderate free fluid in the pelvis is also noted. This has increased since prior CT. No discrete liver mass is identified. No biliary duct dilatation is seen. The pancreas is unremarkable. The spleen appears normal in size. No adrenal mass is identified. The right kidney is markedly atrophic and contains a calculus in the region of the renal pelvis. Left kidney is unremarkable. Aorta is heavily calcified but nonaneurysmal. There is some moderate fluid-filled distention to the stomach. The small and large bowel loops are normal caliber and without evidence of obstruction. Bladder contains a Malin catheter. Prostate is unremarkable. There is generalized edema throughout the subcutaneous tissues consistent with anasarca. IMPRESSION: 1. Bibasilar pulmonary infiltrates with bilateral pleural effusions, right greater. 2. Moderate abdominal and pelvic ascites. There is also moderate fluid-filled distention to the stomach. No definite small bowel or large bowel distention is seen to suggest obstruction. There is no free air or well-formed fluid collection identified. Dictated by: Dictated on workstation # [id number]
[2018-11-21] MEDS: ALLOPURINOL 100 MG (ZYLOPRIM) TAB PO SCH (21:00)
--- NOTE | 2018-11-21 21:23 | NUR ---
1731 BLOOD SUGAR 55, 2ND HALF OF D50 IV PUSHED 1801 BLOOD SUGAR 64 EICU CALLED AND ORDER RECEIVED TO SWITCH IV FLUIDS TO D5 NS AT 50/HOUR 1903 BLOOD SUGAR 52 DISCUSSED WITH EICU PATIENT VOMITED, ABDOMINAL DISTENSION WORSE, PATIENT BLOOD SUGARS AND HR IN 130S-140S - ORDERS RECEIVED 1931 BLOOD SUGAR 55 1932 WENT DOWN WITH PATIENT TO CT 1944 BACK IN [address]OM [address] 2031 INFORMED EICU OF BLOOD SUGAR OF 75, RATE CHANGED TO 100/HOUR.
[2018-11-21] MEDS: oxyCODONE ER 10 MG (OxyCONTIN CR) TAB PO SCH ×2 (21:34→22:36)
[2018-11-21] MEDS: inSUlin DETERMIR 1 UNIT/0.01 ML (LEVEMIR) CHARGE PER UNIT SQ SCH (21:35)
[2018-11-21] MEDS: D5W 1000 ML IV SOLUTION 1,000 ML IV SCH (22:06)
[2018-11-21 23:28] LABS: ABG BASE EXCESS 0.1 MMOL/L (-2.5-2.5); ABG OXYGEN SATURATION 90 % (94-100); ABG PCO2 55 MMHG (35-45); ABG PO2 60 MMHG (79-93); ABG TCO2 27.4 MMOL/L (21.0-31.0); ALLENS TEST YES-POS; INSPIRED O2 2L/NC; PATIENT TEMP 98.9; VENTILATOR NO
[2018-11-22] VITALS (25 sets, daily range): BP systolic 103–136; BP diastolic 55–110
[2018-11-22] MEDS: PANTOPRAZOLE 40 MG (PROTONIX) VIAL IV SCH ×2 (00:18→07:55)
--- NOTE | 2018-11-22 03:04 | NUR ---
RECEIVED ORDER FOR NG TUBE PLACEMENT FROM EICU, PATIENT AWOKE WHEN DISCUSSED PLACEMENT AND WAS ORIENTED TO PLACE AND NAME. NG TUBE ATTEMPTED BUT PATIENT GAGGED AND WAS NOT PLACED. PATIENT REFUSED TO LET THE NURSE TRY TO PLACE THE NG TUBE A SECOND TIME. EICU NOTIFIED. PATIENT IS STILL ORIENTED TO PLACE, DATE AND NAME AND AWAKES WHEN SPOKEN TO. WILL CONTINUE TO MONITOR. REMAINS NPO FOR PARACENTESIS.
[2018-11-22 04:21] LABS: BASOPHILS % (AUTO) 0 % (0-10); EOSINOPHILS # (AUTO) 0.1 10^3/uL (0.0-0.3); EOSINOPHILS % (AUTO) 1 % (0-10); HEMATOCRIT 40 % (40-54); HEMOGLOBIN 11.7 G/DL (13.3-17.7); LYMPHOCYTES # (AUTO) 0.8 X 10^3 (1.0-4.0); LYMPHOCYTES % (AUTO) 9 % (12-44); MEAN CORPUSCULAR HEMOGLOBIN 25 PG (25-34); MEAN CORPUSCULAR HGB CONC 30 G/DL (32-36); MEAN CORPUSCULAR VOLUME 86 FL (80-99); MEAN PLATELET VOLUME 9.5 FL (7.4-10.4); MONOCYTES # (AUTO) 0.6 X 10^3 (0.0-1.0); MONOCYTES % (AUTO) 7 % (0-12); NEUTROPHILS # (AUTO) 6.8 X 10^3 (1.8-7.8); NEUTROPHILS % (AUTO) 82 % (42-75); PLATELET COUNT 169 10^3/uL (130-400); RED CELL DISTRIBUTION WIDTH 18.9 % (10.0-14.5); WHITE BLOOD COUNT 8.3 10^3/uL (4.3-11.0)
--- NOTE | 2018-11-22 04:28 | Pulmonary Progress Note ---
DAVIDAARON Tejeda STUDENT 11/22/18 0428: Subjective Date Seen by a Provider: Nov 22, 2018 Time Seen by a Provider: 04:30 Sepsis Event Evaluation Height, Weight, BMI Height: 6'0.00" Weight: 269lbs. 9.0oz. 122.995511cx; 32.1 BMI Method:Stated Exam Exam Vital Signs Date Time Temp Pulse Resp B/P (MAP) Pulse Ox O2 Delivery O2 Flow Rate FiO2 11/22/18 03:54 97.9 11/22/18 02:00 109 21 126/64 (84) 94 Nasal Cannula 3.00 11/22/18 01:00 122 32 114/70 (85) 92 Nasal Cannula 3.00 11/22/18 00:30 130 30 130/81 (97) 91 Nasal Cannula 3.00 11/22/18 00:00 96 Nasal Cannula 3.00 11/22/18 00:00 98.9 118 23 123/110 (114) 96 Nasal Cannula 2.00 11/21/18 23:00 90 18 114/77 (89) 95 Nasal Cannula 2.00 11/21/18 22:00 121 18 168/82 (110) 96 Nasal Cannula 2.00 11/21/18 21:24 97 Nasal Cannula 2.00 11/21/18 21:00 102 18 144/91 (108) 96 Nasal Cannula 2.00 11/21/18 20:00 98.7 112 17 135/76 (95) 96 Nasal Cannula 3.00 11/21/18 20:00 96 Nasal Cannula 2.00 11/21/18 19:00 127 11 150/96 (114) 96 Nasal Cannula 2.00 11/21/18 19:00 127 11/21/18 18:00 130 16 114/75 (88) 95 Nasal Cannula 2.00 11/21/18 17:00 116 18 172/104 (126) 91 Nasal Cannula 2.00 11/21/18 16:14 98.0 11/21/18 16:09 96 Nasal Cannula 2.00 11/21/18 16:00 89 15 131/96 (108) 93 Nasal Cannula 2.00 11/21/18 15:00 94 13 141/101 (114) 96 Nasal Cannula 2.00 11/21/18 14:00 101 15 132/71 (91) 100 Nasal Cannula 2.00 11/21/18 13:00 93 11/21/18 13:00 98 16 98/68 (78) 99 Nasal Cannula 2.00 11/21/18 12:00 97 Nasal Cannula 2.00 11/21/18 12:00 107 25 113/77 (89) 100 Nasal Cannula 2.00 11/21/18 11:00 95 20 106/74 (85) Nasal Cannula 2.00 11/21/18 10:00 94 16 127/67 (87) 98 Nasal Cannula 2.00 11/21/18 09:00 83 17 118/67 (84) 97 Nasal Cannula 2.00 11/21/18 08:44 91 95 28 11/21/18 08:39 99 Nasal Cannula 2.00 11/21/18 08:00 97 Nasal Cannula 2.00 11/21/18 08:00 77 21 115/62 (79) 100 Nasal Cannula 2.00 11/21/18 07:00 90 11/21/18 07:00 96 19 118/75 (89) 96 Nasal Cannula 2.00 11/21/18 06:45 77 19 124/66 (85) 94 Nasal Cannula 2.00 11/21/18 06:30 81 19 117/68 (84) 94 Nasal Cannula 2.00 11/21/18 06:15 104 19 136/63 (87) 96 Nasal Cannula 2.00 11/21/18 06:00 113 19 124/71 (88) 95 Nasal Cannula 2.00 11/21/18 05:45 91 23 131/66 (87) 94 Nasal Cannula 2.00 11/21/18 05:30 94 23 137/79 (98) 94 Nasal Cannula 2.00 11/21/18 05:15 98 21 122/66 (84) 95 Nasal Cannula 2.00 11/21/18 05:00 113 14 145/81 (102) 100 Nasal Cannula 2.00 11/21/18 04:45 105 21 132/83 (99) 95 Nasal Cannula 2.00 11/21/18 04:30 96 20 137/74 (95) 95 Nasal Cannula 2.00 I & O 11/22/18 07:00 Intake Total 1810 ml Output Total 750 ml Balance 1060 ml Height & Weight Height: 6'0.00" Weight: 269lbs. 9.0oz. 122.454939bv; 32.1 BMI Method:Stated General Appearance: No Apparent Distress, WD/WN, Anxious HEENT: PERRL/EOMI, TMs Normal, Normal ENT Inspection, Pharynx Normal Neck: Full Range of Motion, Normal Inspection, Non Tender, Supple, Carotid Bruit Respiratory: No Respiratory Distress, Decreased Breath Sounds Cardiovascular: Regular Rate, Rhythm, No Murmur Capillary Refill: Less Than 3 Seconds Gastrointestinal: distended; No guarding, No rebound, No tenderness Extremity: Normal Inspection, Non Tender, No Calf Tenderness, Pedal Edema Neurologic/Psychiatric: Alert, Oriented x3 Skin: Normal Color, Warm/Dry Lymphatic: No Adenopathy Results Lab Laboratory Tests 11/21/18 03:45 Assessment/Plan Assessment/Plan Severe sepsis -Continue with sepsis protocol -Preliminary blood cultures negative for bacteremia; urine negative for infection with <10,000 WBC - Monitor Pneumonia -CT chest and abdomen yesterday showed patchy infiltrates and pulmonary effusion present in bilateral lower lobes -On Rocephin day 4 of 14 -No fever, WBC count Ascites -Paracentesis scheduled for today Coumadin coagulopathy - PT/INR resolving following hold of coumadin -Recheck INR today -Continue to hold coumadin due to NPO Nonsustained Vtach - Monitor -Cardiology is following Abdominal pain with distension - NG refused last night -CT showed no obstruction -Paracentesis today for distension -Dilauded 0.5mg IV Q4PRN Hypoglycemia -Monitor -Hypoglycemia protocol POOL RECIO DO 11/22/18 0538: Subjective Date Seen by a Provider: Nov 22, 2018 Time Seen by a Provider: 05:33 Subjective/Events-last exam PT wakes up easily and answers questions. He has signed a consent for paracentesis. Denies abdominal pain Exam Exam General Appearance: No Apparent Distress, WD/WN, Obese HEENT: PERRL/EOMI, Normal ENT Inspection, Pharynx Normal Neck: Full Range of Motion, Normal Inspection, Non Tender, Supple, Carotid Bruit Respiratory: No Respiratory Distress, Decreased Breath Sounds Cardiovascular: No Murmur, Irregularly Irregular Gastrointestinal: distended; No guarding, No rebound, No tenderness Extremity: Non Tender, No Calf Tenderness, Pedal Edema Neurologic/Psychiatric: Alert Skin: Normal Color, Warm/Dry Lymphatic: No Adenopathy Assessment/Plan Assessment/Plan PNeumonia with immunosuppression -Continue Rocephin - Doubt Meningitis - IVF D5W currently at 100 - decrease to 30cc/hr -[place] culture. Ascites -Paracentesis scheduled for today -After paracentesis CLD and advance as tolerated -Repeat PT/INR today Mild acute respiratory acidosis - probably secondary to episode of hypoglycemia -Repeat at 1500 -Will avoid BiPAP for now secondary to N/V yesterday evening Coumadin coagulopathy - worse today Hb is stable thus far -Repeat PT/INR pending -Monitor -Hold Coumadin Nonsustained Vtach -Monitor -Cardiology is following Abdominal distension - Denies abdominal pain currently -NG Tube -Check amylase lipase -Dilauded 0.5mg IV Q4PRN (allergic to Morphine). D/C Fentanyl -S/P NG - Dr. Sullivan's D/C'd NG yesterday Hx of liver transplant -home meds -Recheck CMP, ammonia, Nausea/Vomiting yesterday after D/C of NG -RN attempted NG replacement ordered by EICU -No current N/V -Check amylase lipase -Zofran Hypoglycemia - resolved -Levemir d/c'd -D5W decrease to 30cc/hr -Accu checks Q4 Acute on chronic renal failure -Monitor -IVF HX of CAD with CABG Afib RVR- -Cardizem gtt - is now D/C'd -consult cardiology Weakness/debility -Consult PT/OT NASIMA-AARON PEDERSEN STUDENT Nov 22, 2018 04:28 POOL RECIO DO Nov 22, 2018 05:38
[2018-11-22 04:39] LABS: INR 1.4 (0.8-1.4); PROTHROMBIN TIME PATIENT 16.9 SEC (12.2-14.7)
[2018-11-22 04:50] LABS: CALCIUM 8.7 MG/DL (8.5-10.1); CREATININE SERUM 1.75 MG/DL (0.60-1.30); MAGNESIUM 1.8 MG/DL (1.8-2.4); POTASSIUM 4.5 MMOL/L (3.6-5.0)
[2018-11-22] MEDS: KCL 20 MEQ TAB (K-DUR) PO SCH (05:04)
[2018-11-22] MEDS: inSUlin ASPART (NovoLOG) 1 UNIT/0.01 ML (CHARGE PER UNIT) SC SCH ×3 (05:05→18:39)
[2018-11-22] MEDS: inSUlin ASPART (NovoLOG) 1 UNIT/0.01 ML (CHARGE PER UNIT) SQ SCH ×4 (05:05→21:39)
[2018-11-22 06:09] LABS: ALANINE AMINOTRANSFERASE < 6 U/L (0-55); ALBUMIN 2.9 GM/DL (3.2-4.5); ALKALINE PHOSPHATASE 58 U/L (40-136); AMMONIA 63 UMOL/L (11-32); AMYLASE 62 U/L (25-125); BILIRUBIN,TOTAL 0.6 MG/DL (0.1-1.0); BUN/CREATININE RATIO 18; CALCIUM 8.7 MG/DL (8.5-10.1); CARBON DIOXIDE 21 MMOL/L (21-32); CHLORIDE 109 MMOL/L (98-107); CREATININE SERUM 1.75 MG/DL (0.60-1.30); GFR ESTIMATED 38; GLUCOSE 116 MG/DL (70-105); LIPASE 53 U/L (8-78); POTASSIUM 4.5 MMOL/L (3.6-5.0); SODIUM 139 MMOL/L (135-145); TOTAL PROTEIN 5.4 GM/DL (6.4-8.2)
--- NOTE | 2018-11-22 07:25 | Cardiology Progress Note ---
Subjective Date Seen by Provider: Nov 22, 2018 Time Seen by Provider: 07:22 Subjective/Events-last exam patient is having severe pain in his knees, the left more than the right, denied any chest pain. No palpitation, Tachycardic Review of Systems General: No Chills, No Night Sweats; Fatigue, Malaise; No Appetite, No Other HEENT: No Head Aches, No Visual Changes, No Eye Pain, No Ear Pain, No Dysphasia , No Sinus Congestion, No Post Nasal Drip, No Sore Throat, No Other Pulmonary: Dyspnea; No Cough, No Pleuritic Chest Pain, No Other Cardiovascular: Edema; No: Chest Pain, Palpitations, Orthopnea, Paroxysmal Noc. Dyspnea, Lt Headedness, Other Objective-Cardiology Exam Last Set of Vital Signs Vital Signs 11/21/18 11/22/18 11/22/18 08:44 03:54 06:00 Temp 97.9 Pulse 101 Resp 20 B/P (MAP) 126/88 (101) Pulse Ox 93 O2 Delivery Nasal Cannula O2 Flow Rate 3.00 FiO2 28 Capillary Refill : Less Than 3 Seconds I&O Intake and Output 11/22/18 00:00 Intake Total 2200 ml Output Total 1150 ml Balance 1050 ml Intake Oral 850 ml IV Total 1350 ml Output Urine Total 1150 ml General: Alert, Oriented X3, Cooperative HEENT: Atraumatic, PERRLA Neck: Supple, No JVD, No Thyromegaly Lungs: Normal Air Movement, Other (bilateral rhonchi) Heart: Normal S1, Normal S2, No Murmurs, Other (irregular, borderline tachycardic) Abdomen: Normal Bowel Sounds, Soft, No Tenderness, No Hepatosplenomegaly, No Masses Extremities: No Clubbing, No Cyanosis, Other (bilateral lower extremity edema, severe pain in the left knee) Skin: No Rashes, No Breakdown, No Significant Lesion Neuro: Normal Speech, Normal Tone, Sensation Intact Psych/Mental Status: Mental Status NL, Mood NL Results Lab Laboratory Tests 11/22/18 03:35 A/P-Cardiology Admission Diagnosis Paroxysmal atrial fibrillation Sepsis Coronary artery disease Change in mental status Assessment/Plan Paroxysmal atrial fibrillation, borderline tachycardic, started on Cardizem orally. Continue to monitor, planning to restart Coumadin Severe lower extremity pain, mainly left knee pain. History of gout, on multiple pain medication. Ventricular tachycardia, no further episodes were reported, could be secondary to electrolyte abnormality, seen by Dr. Chapman Severe Sepsis, receiving antibiotics, bilateral infiltrate on chest x-ray. On Rocephin day number 4 Acute renal failure, history of chronic renal insufficiency, improving, continue to monitor renal function Coumadin toxicity, no active bleeding, INR is better, planning to restart Coumadin after paracentesis Moderate size ascites, history of liver transplant, patient is receiving paracentesis today. Immunosuppression, history of liver transplant, continue to monitor Coronary artery disease, history of CABG 4 done in 1999, followed and managed by Dr Melendez Hypertension, continue current medication monitor blood pressure Hyperlipidemia, continue to monitor at this time, Status post liver transplant in 2011 secondary to PRADO Diabetes mellitus, followed and managed by primary care physician Confusion, change in mental status, improved. Continue to monitor Clinical Quality Measures DVT/VTE Risk/Contraindication: Risk Factor Score Per Nursin RFS Level Per Nursing on Admit: 4+=Very High BLANCA TABARES MD Nov 22, 2018 07:25
[2018-11-22] MEDS ORDERED: DILTIAZEM 120 MG (CARDIZEM CD) CAP PO ONE (07:45)
[2018-11-22] MEDS: DILTIAZEM 120 MG (CARDIZEM CD) CAP PO SCH (07:55)
[2018-11-22] MEDS: meTOprolol TARTRATE 50 MG (LOPRESSOR) TAB PO SCH ×2 (07:55→21:34)
[2018-11-22] MEDS: SPIRONOLACTONE 25 MG (ALDACTONE) TAB PO SCH (07:55)
[2018-11-22] MEDS: PREGABALIN 75 MG (LYRICA) CAP PO SCH ×2 (07:55→21:31)
[2018-11-22] MEDS: FUROSEMIDE 40 MG (LASIX) TAB PO SCH (07:55)
[2018-11-22] MEDS: rOPINIRole 1 MG (REQUIP) TABLET PO SCH ×2 (07:55→21:30)
[2018-11-22] MEDS: cefTRIAXone FOR IV USE 2,000 MG in NS (IVPB) 50 ML IV SCH (07:56)
[2018-11-22] MEDS: D5W 1000 ML IV SOLUTION 1,000 ML IV SCH ×2 (07:57→18:50)
[2018-11-22] MEDS: oxyCODONE ER 20 MG (OxyCONTIN CR) TAB PO SCH (07:58)
[2018-11-22] MEDS: URSODIOL 300 MG PO SCH ×2 (07:58→21:34)
[2018-11-22] MEDS: TACROLIMUS 0.5 MG (PROGRAF) CAP NON-FORMULARY PO SCH ×2 (07:59→21:33)
--- NOTE | 2018-11-22 08:15 | Diagnostic Imaging Report ---
INDICATION: Sepsis/pneumonia Portable chest 3:09 AM There are postop changes from CABG surgery. There is cardiomegaly with pulmonary vascular congestion. There are no appreciable infiltrates. There is no effusion or pneumothorax. IMPRESSION: Congestive heart failure. No significant change from previous day. Dictated by: Dictated on workstation # [id number]
[2018-11-22] MEDS: HYDROmorphone 2 MG/ML VIAL (DILAUDID) IV PRN ×2 (09:31→13:45)
[2018-11-22] MEDS: RT-ALBUTEROL/IPRATROPIUM 3 ML (DUONEB) VIAL INH SCH ×2 (09:56→20:16)
--- NOTE | 2018-11-22 09:58 | Cardiology Progress Note ---
Cardiology SOAP Progress Note Subjective: Complaining of bilateral upper extremity swelling. Complaining of bilateral lower extremity pain. Objective: I&O/Vital Signs 11/22/18 11/22/18 11/22/18 11/22/18 00:00 00:00 00:30 01:00 Temp 98.9 Pulse 118 130 122 Resp 23 30 B/P (MAP) 123/110 (114) 130/81 (97) Pulse Ox 96 96 91 O2 Delivery Nasal Cannula Nasal Cannula Nasal Cannula O2 Flow Rate 2.00 3.00 3.00 11/22/18 11/22/18 11/22/18 11/22/18 01:00 02:00 03:00 03:54 Temp 97.9 Pulse 122 109 106 Resp 32 21 26 B/P (MAP) 114/70 (85) 126/64 (84) 131/73 (92) Pulse Ox 92 94 93 O2 Delivery Nasal Cannula Nasal Cannula Nasal Cannula O2 Flow Rate 3.00 3.00 3.00 11/22/18 11/22/18 11/22/18 11/22/18 04:00 04:00 05:00 06:00 Pulse 103 101 101 Resp 19 20 20 B/P (MAP) 107/67 (80) 116/69 (85) 126/88 (101) Pulse Ox 93 92 93 93 O2 Delivery Nasal Cannula Nasal Cannula Nasal Cannula Nasal Cannula O2 Flow Rate 3.00 3.00 3.00 3.00 11/22/18 11/22/18 11/22/18 11/22/18 07:00 07:00 08:00 08:07 Temp 99.5 Pulse 109 86 94 Resp 21 21 B/P (MAP) 110/70 (83) 110/86 (94) Pulse Ox 93 93 O2 Delivery Nasal Cannula Nasal Cannula Nasal Cannula O2 Flow Rate 3.00 3.00 3.00 11/22/18 11/22/18 11/22/18 11/22/18 08:07 09:00 09:56 10:00 Pulse 105 100 Resp 15 20 B/P (MAP) 113/77 (89) 134/74 (94) Pulse Ox 92 93 92 95 O2 Delivery Nasal Cannula Nasal Cannula Nasal Cannula Nasal Cannula O2 Flow Rate 3.00 3.00 2.00 3.00 11/22/18 11:00 Pulse 113 Resp 23 B/P (MAP) 136/77 (96) Pulse Ox 94 O2 Delivery Nasal Cannula O2 Flow Rate 3.00 11/22/18 00:00 Intake Total 710 ml Output Total 300 ml Balance 410 ml Weight (Pounds): 269 Weight (Ounces): 5.0 Weight (Calculated Kilograms): 122.919126 Constitutional: appears stated age, AAO x 3; No apparent distress; well- developed, well-nourished Respiratory: No accessory muscle use, No respiratory distress, No chest tender , No chest expansion is symmetric; chest is bilaterally symmetric; No lungs clear to percussion; lungs clear to auscultation; No crackles, No rhonchi, No rales, No stridor, No wheezing, No pleural rub, No other Cardiovascular: No regular rate-rhythm; irregularly irregular; No extra beats, No parasternal heave is noted, No JVD, No edema, No bradycardia, No tachycardia , No point of maximal impulse, No cardiac thrills are palpable; S1 and S2; No gallop/S3, No gallop/S4, No diastolic murmur, No systolic murmur, No friction rub, No click, No other Gastrointestional: No tender, No soft, No round, No distended, No pulsatile mass, No organomegaly, No guarding, No rebound, No tenderness, No hernia, No mass, No audible bowel sounds, No abnormal bowel sounds, No abdominal bruits, No spleenomegaly, No other Extremities: No normal range of motion, No non-tender, No normal inspection, No pedal edema, No calf tenderness, No normal capillary refill, No pelvis stable , No calf tenderness, No inflammation, No pedal edema, No slow capillary refill , No swelling, No other, No abrasion, No clubbing, No cyanosis, No ecchymosis, No laceration, No no lower extremity edema bilateral, No significant edema, No tenderness, No wound Neurologic/Psychiatric: no motor/sensory deficits, alert, normal mood/affect, oriented x 3, power is 5/5 both on sides Skin: warm/dry, pallor; No rash Results/Procedures: Labs Laboratory Tests 11/21/18 16:26: Glucometer 45*L 11/21/18 16:59: Glucometer 41*L 11/21/18 17:31: Glucometer 55*L 11/21/18 18:01: Glucometer 64L 11/21/18 19:04: Glucometer 52*L 11/21/18 19:32: Glucometer 55*L 11/21/18 20:26: Glucometer 75 11/21/18 23:04: Glucometer 81 11/21/18 23:20: Blood Gas Puncture Site R RAD, Blood Gas Patient Temperature 98.9, Arterial Blood pH 7.30*L, Arterial Blood Partial Pressure CO2 55H, Arterial Blood Partial Pressure O2 60L, Arterial Blood HCO3 26, Arterial Blood Total CO2 27.4, Arterial Blood Oxygen Saturation 90L, Arterial Blood Base Excess 0.1, Omi Test YES-POS, Blood Gas Ventilator Setting NO, Blood Gas Inspired Oxygen 2L/NC 11/22/18 03:35: White Blood Count 8.3, Red Blood Count 4.62, Hemoglobin 11.7L, Hematocrit 40, Mean Corpuscular Volume 86, Mean Corpuscular Hemoglobin 25, Mean Corpuscular Hemoglobin Concent 30L, Red Cell Distribution Width 18.9H, Platelet Count 169, Mean Platelet Volume 9.5, Neutrophils (%) (Auto) 82H, Lymphocytes (%) (Auto) 9L , Monocytes (%) (Auto) 7, Eosinophils (%) (Auto) 1, Basophils (%) (Auto) 0, Neutrophils # (Auto) 6.8, Lymphocytes # (Auto) 0.8L, Monocytes # (Auto) 0.6, Eosinophils # (Auto) 0.1, Basophils # (Auto) 0.0, Prothrombin Time 16.9H, INR Comment 1.4, Activated Partial Thromboplast Time 36H, Sodium Level 139, Potassium Level 4.5, Chloride Level 109H, Carbon Dioxide Level 21, Anion Gap 9, Blood Urea Nitrogen 31H, Creatinine 1.75H, Estimat Glomerular Filtration Rate 38 , BUN/Creatinine Ratio 18, Glucose Level 116H, Calcium Level 8.7, Corrected Calcium 9.6, Phosphorus Level 2.5, Magnesium Level 1.8, Total Bilirubin 0.6, Aspartate Amino Transf (AST/SGOT) 10, Alanine Aminotransferase (ALT/SGPT) < 6, Alkaline Phosphatase 58, Ammonia 63H, Total Protein 5.4L, Albumin 2.9L, Amylase Level 62, Lipase 53 11/22/18 11:04: Glucometer 125H Microbiology 11/18/18 Blood Culture - Preliminary, Resulted No growth 11/18/18 MRSA Screen - Final, Complete MRSA not isolated 11/18/18 Urine Culture - Final, Complete See Report A/P: Assessment/Dx: Chronic liver disease, status post liver transplant, Immunosuppressive therapy, CAD/CABG, Paroxysmal atrial fibrillation with rapid ventricular rate, Chronic kidney disease, Ascites, Wide-complex tachycardia Plan: Atrial fibrillation with rapid ventricular rate: Resolved. Still in atrial fibrillation with controlled ventricular rate. On Cardizem by mouth. Wide-complex tachycardia on telemetry, could be nonsustained VT due to significant electrolyte abnormalities. No further significant ventricular ectopy in the last 3 days. Supratherapeutic INR, hold warfarin. Concerned about decompensated liver disease. I will hold warfarin for now. CAD/CABG: Defer to Dr. Yadav. Likely decompensated liver disease with ascites, defer to the primary team. Thank you for your consultation. Please call me if you have any questions. Sumaya Chapman MD, FACP, FACC, FSCAI, FHRS, CCDS Interventional Cardiology Cardiac Electrophysiology Vascular Medicine and Endovascular Interventions Alysa CHAPMAN MD Nov 22, 2018 9:58 am
[2018-11-22] MEDS: DOCUSATE SODIUM 100 MG (COLACE) CAP PO SCH (11:16)
[2018-11-22] MEDS: ACETAMINOPHEN 500 MG TAB (TYLENOL) PO PRN (11:29)
--- NOTE | 2018-11-22 11:45 | Physical Therapy Evaluation ---
PT Evaluation-General Medical Diagnosis Admission Date Nov 18, 2018 at 06:30 Medical Diagnosis: debility Onset Date: Nov 18, 2018 Therapy Diagnosis Therapy Diagnosis: impaired mobility, strength, pain Height/Weight Height (Feet): 6 Height (Inches): 0.00 Weight (Pounds): 269 Weight (Ounces): 5.0 Precautions Precautions/Isolations: Fall Prevention, Standard Precautions Referral Physician: Willis Blanco DO Reason for Referral: Evaluation/Treatment Medical History Additional Medical History Past Medical History Surgeries: Cardiac, CABG, Coronary Stent, Eye Surgery, Liver Transplant, Orthopedic, Rectal, Vasectomy Respiratory: COPD, Sleep Apnea Cardiac: Atrial Fibrillation, Chronic Edema/Swelling, Coronary Artery Disease, High Cholesterol, Hypertension Neurological: Neuropathy Reproductive: No (VASECTOMY) Gastrointestinal: Liver Disease/Jaundice Musculoskeletal: Chronic Back Pain Endocrine: Diabetes, Insulin dep HEENT: Cataract Loss of Vision: Denies Hearing Impairment: Denies History of Blood Disorders: Yes (immunosuppressed with history of liver transplant) Current History Patient went to ER with N&V Reviewed History: Yes Social History Home: Single Level Current Living Status: Spouse Entry Into Home: Stairs With Railing PT Steps Into Home: 3 Prior/Core FIM Prior Level of Function Therapy Code Descriptions/Definitions Functional Deuel Measure: 0=Not Assessed/NA 4=Minimal Assistance 1=Total Assistance 5=Supervision or Setup 2=Maximal Assistance 6=Modified Deuel 3=Moderate Assistance 7=Complete Deuel Therapy Quality Codes: 6 Independent with activity with or without an assistive device 5 Patient requires set up or clean up by helper. Patient completes activity by themselves 4 Supervision or touching assist (CGA). [place] provide cues , steadying assist 3 The helper provides less than half the effort to complete the activity 2 The helper provides more than half the effort to complete the activity 1 Dependent. The helper does all the effort to complete an activity 7 Patient refused to complete or attempt activity 9 The patient did not perform the activity before the current illness or injury 88 Not attempted due to Medical conditions or safety concerns Functional Abilities and Goals: Independent: Patient completed the activities by him/herself, with or without an assistive device, with no assistance from a helper. Needed Some Help: Patient needed partial assistance from another person to complete activities. Dependent: A helper completed the activities for the patient. Unknown: Not Applicable: Bed Mobility: 7 Transfers (B,C,W/C) (FIM): 7 Gait: 7 Stairs: 7 Indoor Mobility (Ambulation): Independent Stairs: Independent Patient states he was not using an assistive device previously. PT Evaluation-Current Subjective Patient in bed pre tx, agrees to PT but states that he cannot get out of bed at this time due to his pain and that he has severe gout. Patient has 10/10 pain in both knees and left ankle. Nurse gave tylenol during treatment. Patient is shaking, legs seem to be almost writhing like RLS, and patient is moaning/ crying in pain. O2 sat varies wildly probably due to the movement. Pt/Family Goals decrease pain Objective Patient Orientation: Person, Unable to Assess Attachments: Oxygen, Malin Catheter, IV ROM/Strength ROM Lower Extremities not able to test due to pain Strength Lower Extremities not able to test due to pain Integumentary/Posture Integumentary bilateral lower extremity edema 2+ Sensory Hearing: Functional Transfers Therapy Code Descriptions/Definitions Functional Deuel Measure: 0=Not Assessed/NA 4=Minimal Assistance 1=Total Assistance 5=Supervision or Setup 2=Maximal Assistance 6=Modified Deuel 3=Moderate Assistance 7=Complete Deuel Treatment attempted LE PROM and AROM but patient was only able to perform SAQ AAROM x10 on the right and barely x1 on the left before telling us to stop. Assessment/Needs Patient has impaired mobility and strength, severe pain. He refused to get out of bed or sit on the side of the bed. Rehab Potential: Guarded PT Short Term Goals Short Term Goals Time Frame: Nov 29, 2018 Transfers (B,C,W/C) (FIM): 4 Gait Distance Comment: 10' Gait Level of Assist: 4 Gait Assistive Device: FWW PT Plan Problem List Problem List: Activity Tolerance, Functional Strength, Safety, Balance, Gait, Transfer, Bed Mobility, ROM Treatment/Plan Treatment Plan: Continue Plan of Care Treatment Plan: Bed Mobility, Concurrent Therapy, Education, Functional Activity Ivy, Functional Strength, Gait, Safety, Therapeutic Exercise, Transfers Treatment Duration: Nov 29, 2018 Frequency: 6 times per week Estimated Hrs Per Day: .25 hour per day (15-30') Patient and/or Family Agrees t: Yes Safety Risks/Education Patient Education: Correct Positioning, Safety Issues Teaching Recipient: Patient Teaching Methods: Demonstration, Discussion Response to Teaching: Reinforcement Needed Discharge Recommendations Plan Patient will perform bed mobility and transfer training, balance and endurance training, functional strengthening, stair training, gait training, and education , to improve functional mobility and independence at home. Therapy D/C Recommendations: Home w/ Family Support, Alf (TCU/NH) Time/GCodes Time In: 1125 Time Out: 1135 Total Billed Treatment Time: 10 Total Billed Treatment 1 visit TABITHA HACKETT PT Nov 22, 2018 11:45
[2018-11-22] MEDS ORDERED: LIDOCAINE 1% INJ 20 ML 20 ML VIAL ONE (12:23)
[2018-11-22] MEDS ORDERED: LIDOCAINE 1% INJ 20 ML 20 ML VIAL INJ ONE (12:30)
--- NOTE | 2018-11-22 14:09 | Diagnostic Imaging Report ---
INDICATION: Ascites. Procedure was performed at the patient's bedside in the intensive care unit. Ultrasound imaging of the abdomen was performed to evaluate appropriate entry site. The skin at the left lower quadrant was prepped and draped in usual sterile fashion. A small amount of 1% lidocaine was utilized for local anesthesia. A paracentesis catheter was advanced into left lower quadrant peritoneal space. A total of 5150 mL of fluid was removed. Catheter was withdrawn, hemostasis was obtained using manual compression. Patient tolerated procedure well. IMPRESSION: Successful ultrasound-guided paracentesis obtaining 5150 mL of fluid. Dictated by: Dictated on workstation # [id number]
[2018-11-22 15:45] LABS: ABG BASE EXCESS -0.1 MMOL/L (-2.5-2.5); ABG OXYGEN SATURATION 94 % (94-100); ABG PCO2 52 MMHG (35-45); ABG PO2 69 MMHG (79-93)
[2018-11-22 15:49] LABS: ABG PH 7.31 (7.37-7.43); ALLENS TEST POSITIVE; INSPIRED O2 3L NC; VENTILATOR NO
[2018-11-22 15:50] LABS: PATIENT TEMP 97.9
--- NOTE | 2018-11-22 16:01 | Occupational Therapy Eval ---
OT Evaluation-General/PLF Medical Diagnosis Admission Date Nov 18, 2018 at 06:30 Medical Diagnosis: debility Onset Date: Nov 18, 2018 Therapy Diagnosis Therapy Diagnosis: weakness Height/Weight Height (Feet): 6 Height (Inches): 0.00 Weight (Pounds): 269 Weight (Ounces): 5.0 Precautions Precautions/Isolations: Fall Prevention, Standard Precautions Safety Interventions: None Weight Bear Status Weight Bearing Restriction: Full Weight Bearing Referral Physician: Willis Blanco DO Referral Reason: Activity Tolerance, Self Care, Evaluation/Treatment, Strengthening/ROM Medical History Pertinent Medical History: CABG, CAD, COPD, DM Additional Medical History Acute Kidney Failure, Gout Rt knee, Chr Back pain, Obesity, sleep apnea, 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 , Coronary stent Current History 73 yrs old male admitted due to debility , CAD S/P CABG, Liver Transplanton chronic immune suppresant. Admitted to ER due to nausea & vomitting. Social History Home: Single Level Current Living Status: Spouse Entry Into Home: Stairs With Railing Steps Into Home: 3 ADL-Prior Level of Function Therapy Code Descriptions/Definitions Functional [place] Measure: 0=Not Assessed/NA 4=Minimal Assistance 1=Total Assistance 5=Supervision or Setup 2=Maximal Assistance 6=Modified [place] 3=Moderate Assistance 7=Complete [place] Therapy Quality Codes: 6 Independent with activity with or without an assistive device 5 Patient requires set up or clean up by helper. Patient completes activity by themselves 4 Supervision or touching assist (CGA). [place] provide cues , steadying assist 3 The helper provides less than half the effort to complete the activity 2 The helper provides more than half the effort to complete the activity 1 Dependent. The helper does all the effort to complete an activity 7 Patient refused to complete or attempt activity 9 The patient did not perform the activity before the current illness or injury 88 Not attempted due to Medical conditions or safety concerns Functional Abilities and Goals: Independent: Patient completed the activities by him/herself, with or without an assistive device, with no assistance from a helper. Needed Some Help: Patient needed partial assistance from another person to complete activities. Dependent: A helper completed the activities for the patient. Unknown: Not Applicable: ADL PLOF Comments 73 yrs old man lives with his at home & was Independent in all self care tasks, IADL's & ambulation without walker. Recently marked decline in all ADL's & mobility due recent admitted to ER due to nausea & vomitting & c /o severe pain in Left knee . Self Care: Independent Functional Cognition: Independent DME/Equipment Comments Patient does'nt have any adaptive equipments at home. Drive Self: No OT Current Status Subjective Patient stated , : I am very weak & has severe pain in my left knee due to gout . Pain Numeric Pain Scale: 8 Location: Left Location Body Site: Knee Pain Description: Stabbing, Acute, Sharp Mental Status/Objective Patient Orientation: Person, Place, Time, Situation Current Glasses/Contacts: No Hearing Aids: No Hand Dominance: Right Upper Extremity ROM WFL Upper Extremity Coordination Intact Upper Extremity Sensation Intact Upper Extremity Strength -4/5 grossly graded. ADL-Treatment Therapy Code Descriptions/Definitions Functional [place] Measure: 0=Not Assessed/NA 4=Minimal Assistance 1=Total Assistance 5=Supervision or Setup 2=Maximal Assistance 6=Modified [place] 3=Moderate Assistance 7=Complete [place] Therapy Quality Codes: 6 Independent with activity with or without an assistive device 5 Patient requires set up or clean up by helper. Patient completes activity by themselves 4 Supervision or touching assist (CGA). [place] provide cues , steadying assist 3 The helper provides less than half the effort to complete the activity 2 The helper provides more than half the effort to complete the activity 1 Dependent. The helper does all the effort to complete an activity 7 Patient refused to complete or attempt activity 9 The patient did not perform the activity before the current illness or injury 88 Not attempted due to Medical conditions or safety concerns Eating (FIM): 5 (Needs supervision & set up with min VC's) Grooming (FIM): 4 (Min A due to marked weakness & mild shoulder stiffness.) Bathing (FIM): 1 (total assistance) Upper Body Dressing (FIM): 2 (max A due to weakness & fatigue . poor endurance. ) Lower Body Dressing (FIM): 2 (Max A due to marked weakness) Toileting (FIM): 3 Transfers (B, C, W/C) (FIM): 3 (mod A) Toilet/Commode Transfer (FIM): 3 Patient very weak, discomfort & needs mod-max A in all self care activities & func transfers due to severe pain in Left knee., Noticed marked swelling on both UE, LE & ABDOMEN . Education OT Patient Education: Correct positioning, Instructions to caregiver, Safety issues OT Short Term Goals Short Term Goals Time Frame: Dec 07, 2018 Eating(FIM): 6 Grooming(FIM): 6 Bathing(FIM): 4 Upper Body Dressing(FIM): 4 Lower Body Dressing(FIM): 4 Toileting(FIM): 6 Transfers (B,C,W/C) (FIM): 5 Toilet/Commode Transfer(FIM): 5 Shower Transfer(FIM): 4 1=Demonstrate adherence to instructed precautions during ADL tasks. 2=Patient will verbalize/demonstrate understanding of assistive devices/ modifications for ADL. 3=Patient will improve strength/tolerance for activity to enable patient to perform ADL's. OT Correction Goals Correction Goals Time Frame: Dec 21, 2018 (12/21/2017) Eating (FIM): 7 Grooming(FIM): 7 Bathing(FIM): 6 Bathing Location: L Arm, R Arm, L Upper Leg, R Upper Leg, L Lower Leg ( including foot), R Lower Leg (including foot), Chest, Abdomen, Buttocks, Perineal Area Upper Body Dressing(FIM): 6 Lower Body Dressing(FIM): 6 Toileting(FIM): 6 Transfers (B,C,W/C) (FIM): 6 Toilet/Commode Transfer(FIM): 6 Shower Transfer(FIM): 6 Additional Goals: 1-Demonstrate ADL Tasks, 2-Verbalize Understanding, 3- ImproveStrength/Ivy 1=Demonstrate adherence to instructed precautions during ADL tasks. 2=Patient will verbalize/demonstrate understanding of assistive devices/ modifications for ADL. 3=Patient will improve strength/tolerance for activity to enable patient to perform ADL's. OT Education/Plan Problem List/Assessment Assessment: Decreased Activ Tolerance, Decreased Safety Aware, Decreased UE Strength, Dependent Transfers, Impaired Bed Mobility, Impaired Funct Balance, Impaired I ADL's, Impaired Self-Care Skills Discharge Recommendations Plan/Recommendations: Continue POC Treatment Plan/Plan of Care Treatment,Training & Education: Yes Patient would benefit from OT for education, treatment and training to promote independence in ADL's, mobility, safety and/or upper extremity function for ADL' s. Plan of Care: ADL Retraining, Caregiver Training, Functional Mobility, UE Funct Exercise/Act Treatment Duration: Dec 21, 2018 Frequency: 5 times per week Estimated Hrs Per Day: .25 hour per day Agreement: Yes Rehab Potential: Fair Time/GCodes Start Time: 11:00 Stop Time: 11:35 Total Time Billed (hr/min): 35 Billed Treatment Time 1 Visit EVM 20 min , EX 15 URIEL CARRANZA OT Nov 22, 2018 16:01
--- NOTE | 2018-11-22 16:11 | Progress Note-Hospitalist ---
Progress Note Progress Notes/Assess & Plan Date Seen 11/22/18 Time Seen by Provider: 16:08 Assessment & Plan The patient appears to be improving slowly but steadily. Dr. Blanco is planning to transfer him to the floor. He will require PT and OT services to restore ambulation. Physical exam: He is alert and oriented. Lungs are clear to auscultation. CV is irregular with rate hovering at 100. Abdomen is large but soft. Extremities show no pedal edema. Impression: Apparent sepsis. 2.status post liver transplant, immunosuppression with tacrolimus, PRADO. 3.atrial fibrillation. Plan: Continue medications. Advance activities. PAM VALERA MD Nov 22, 2018 16:11
[2018-11-22 17:27] LABS: GLUCOSE,BODY FLUID 129 MG/DL
[2018-11-22 17:28] LABS: AMYLASE,BODY FLUID 25 U/L; LDH,BODY FLUID 85 U/L; TOTAL PROTEIN,BODY FLUID 3.5 G/DL
[2018-11-22 17:50] LABS: BODY FLUID APPEARENCE SLT CLDY; BODY FLUID COLOR YELLOW; BODY FLUID RBC COUNT 1800 /uL; BODY FLUID SOURCE OTHER; BODY FLUID WBC TOTAL COUNT 194 /uL
[2018-11-22 18:05] LABS: BF OTHER CELLS 20 %; LYMPHOCYTES,BODY FLUID 38 %
[2018-11-22 18:13] LABS: BODY FLUID PH 6.7
[2018-11-22] MEDS: oxyCODONE ER 10 MG (OxyCONTIN CR) TAB PO SCH (21:29)
[2018-11-22] MEDS: ALLOPURINOL 100 MG (ZYLOPRIM) TAB PO SCH (21:29)
[2018-11-22] MEDS: PANTOPRAZOLE 40 MG (PROTONIX) TAB PO SCH (21:30)
[2018-11-23] VITALS (15 sets, daily range): BP systolic 108–140; BP diastolic 63–116
--- NOTE | 2018-11-23 00:16 | NUR ---
NO IV access upon this RN's arrival. Attempted twice by this RN, Liz CHESTER attempted 1 time and Jessica, nursing plant protection supervisor attempted 3 times. NO iv access obtained. Patient is alert at this time, drinking and eating. Decision made to leave the IV out at this time and continue to monitor patient.
[2018-11-23] MEDS: ACETAMINOPHEN 500 MG TAB (TYLENOL) PO PRN (00:31)
[2018-11-23 03:49] LABS: BASOPHILS % (AUTO) 0 % (0-10); EOSINOPHILS # (AUTO) 0.1 10^3/uL (0.0-0.3); EOSINOPHILS % (AUTO) 1 % (0-10); HEMATOCRIT 34 % (40-54); HEMOGLOBIN 10.4 G/DL (13.3-17.7); LYMPHOCYTES # (AUTO) 0.8 X 10^3 (1.0-4.0); LYMPHOCYTES % (AUTO) 8 % (12-44); MEAN CORPUSCULAR HEMOGLOBIN 26 PG (25-34); MEAN CORPUSCULAR HGB CONC 31 G/DL (32-36); MEAN CORPUSCULAR VOLUME 84 FL (80-99); MEAN PLATELET VOLUME 9.9 FL (7.4-10.4); MONOCYTES # (AUTO) 0.7 X 10^3 (0.0-1.0); MONOCYTES % (AUTO) 7 % (0-12); NEUTROPHILS # (AUTO) 8.1 X 10^3 (1.8-7.8); NEUTROPHILS % (AUTO) 83 % (42-75); PLATELET COUNT 121 10^3/uL (130-400); RED CELL DISTRIBUTION WIDTH 18.2 % (10.0-14.5); WHITE BLOOD COUNT 9.7 10^3/uL (4.3-11.0)
[2018-11-23] MEDS: D5W 1000 ML IV SOLUTION 1,000 ML IV SCH (03:54)
[2018-11-23 04:13] LABS: CALCIUM 8.5 MG/DL (8.5-10.1); CREATININE SERUM 1.58 MG/DL (0.60-1.30); MAGNESIUM 1.5 MG/DL (1.8-2.4); POTASSIUM 4.8 MMOL/L (3.6-5.0)
[2018-11-23 04:19] LABS: INR 1.6 (0.8-1.4); PROTHROMBIN TIME PATIENT 18.8 SEC (12.2-14.7)
--- NOTE | 2018-11-23 04:39 | NUR ---
0150 EICU notifed of patient's temperature and use of tylenol with no decrease. Ice packs also placed on patient and cold wash cloth. Patient also complaining of gout pain. Orders received to continue to monitor temperature and oxycodone 5mg instant release one time. 0300 - IV attempted by NEMO Vann with no success.
--- NOTE | 2018-11-23 04:46 | Pulmonary Progress Note ---
DAVIDAARON STUDENT 11/23/18 0446: Subjective Date Seen by a Provider: Nov 23, 2018 Time Seen by a Provider: 04:39 Subjective/Events-last exam Patient is alert and oriented x3. He is awake in bed due to pain in his left lower extremity. He notes that he usually takes preventative medication for gout and has not been taking it, which created a gout flare. He notes that the pain is behind his left knee. He denies shortness of breath, chest pain, and abdominal pain. He had a paracentesis yesterday, which successfully removed 5150mL of fluid. Review of Systems General: No Chills; Night Sweats; No Appetite HEENT: No Head Aches Pulmonary: No Dyspnea, No Cough, No Pleuritic Chest Pain Cardiovascular: Edema (edema of bilateral upper extremities); No: Chest Pain, Palpitations Gastrointestinal: No: Nausea, Vomiting, Abdominal Pain Musculoskeletal: leg pain (left popliteal fossa pain) Sepsis Event Evaluation Height, Weight, BMI Height: 6'0.00" Weight: 269lbs. 5.0oz. 122.418276uo; 32.1 BMI Method:Stated Exam Exam Vital Signs Date Time Temp Pulse Resp B/P (MAP) Pulse Ox O2 Delivery O2 Flow Rate FiO2 11/23/18 04:24 Vapotherm 25.00 35 11/23/18 04:22 99.2 11/23/18 04:00 96 21 117/79 (92) 100 Vapotherm 35.00 25.00 11/23/18 03:00 112 22 123/69 (87) 100 Vapotherm 35.00 25.00 11/23/18 03:00 101.0 11/23/18 02:00 120 22 124/65 (84) 98 Vapotherm 35.00 25.00 11/23/18 01:20 101.9 11/23/18 01:00 120 20 126/88 (101) 100 Vapotherm 35.00 25.00 11/23/18 01:00 120 11/23/18 00:31 100.3 11/23/18 00:31 100.3 11/23/18 00:20 Vapotherm 25.00 35 11/23/18 00:00 103 18 132/68 (89) Vapotherm 35.00 25.00 11/22/18 23:59 115 20 125/56 (79) Vapotherm 35.00 25.00 11/22/18 22:00 108 14 119/69 (86) Vapotherm 35.00 25.00 11/22/18 21:00 106 20 111/79 (90) Vapotherm 35.00 25.00 11/22/18 20:30 Vapotherm 25.00 35 11/22/18 20:18 91 Vapotherm 25.00 35 11/22/18 20:12 98.0 11/22/18 20:00 96 18 103/66 (78) 90 Vapotherm 35.00 25.00 11/22/18 19:00 116 18 114/69 (84) 89 Vapotherm 35.00 25.00 11/22/18 19:00 93 11/22/18 18:00 112 12 117/107 (110) 89 Vapotherm 35.00 25.00 11/22/18 17:00 101 26 111/67 (82) 89 Vapotherm 35.00 25.00 11/22/18 16:00 100 18 103/55 (71) 89 Nasal Cannula 3.00 11/22/18 16:00 93 Nasal Cannula 3.00 11/22/18 15:00 108 17 105/61 (76) 91 Nasal Cannula 3.00 11/22/18 14:21 104 11/22/18 14:00 103 18 103/84 (90) 91 Nasal Cannula 3.00 11/22/18 13:00 104 11/22/18 13:00 118 21 118/67 (84) 93 Nasal Cannula 3.00 11/22/18 12:00 93 Nasal Cannula 3.00 11/22/18 12:00 70 20 118/56 (76) 94 Nasal Cannula 3.00 11/22/18 11:00 113 23 136/77 (96) 94 Nasal Cannula 3.00 11/22/18 10:00 100 20 134/74 (94) 95 Nasal Cannula 3.00 11/22/18 09:56 92 Nasal Cannula 2.00 11/22/18 09:00 105 15 113/77 (89) 93 Nasal Cannula 3.00 11/22/18 08:07 92 Nasal Cannula 3.00 11/22/18 08:07 99.5 Nasal Cannula 3.00 11/22/18 08:00 94 21 110/86 (94) 93 Nasal Cannula 3.00 11/22/18 07:00 86 11/22/18 07:00 109 21 110/70 (83) 93 Nasal Cannula 3.00 11/22/18 06:00 101 20 126/88 (101) 93 Nasal Cannula 3.00 11/22/18 05:00 101 20 116/69 (85) 93 Nasal Cannula 3.00 I & O 11/23/18 07:00 Intake Total 2842 ml Output Total 1700 ml Balance 1142 ml Height & Weight Height: 6'0.00" Weight: 269lbs. 5.0oz. 122.556408yx; 32.1 BMI Method:Stated General Appearance: WD/WN, Anxious, Mild Distress, Obese HEENT: PERRL/EOMI, Pharynx Normal, Moist Mucous Membranes Neck: Normal Inspection, Non Tender, Supple, Carotid Bruit Respiratory: Chest Non Tender, No Accessory Muscle Use, No Respiratory Distress ; No Crackles; Decreased Breath Sounds Cardiovascular: No Regular Rate, Rhythm; No Murmur, Irregularly Irregular Capillary Refill: Less Than 3 Seconds Gastrointestinal: normal bowel sounds, non tender, soft, distended; No guarding , No rebound, No tenderness Extremity: Non Tender, No Calf Tenderness, Pedal Edema, Other (extreme tenderness to light touch of left knee region) Neurologic/Psychiatric: Alert, Oriented x3 Skin: Normal Color, Warm/Dry Lymphatic: No Adenopathy Results Lab Laboratory Tests 11/22/18 03:35 11/23/18 03:40 Assessment/Plan Assessment/Plan PNeumonia with immunosuppression -Continue Rocephin day 03/27 - No IVF due to loss of access. Drinking okay at this time -CXR showed clear lungs -fever last night, continue to monitor Ascites -Paracentesis completed yesterday with removal of 5150mL fluid - Exudative fluid with protein of 3.5, likely due to liver disease -Repeat PT/INR today pending Mild acute respiratory acidosis -Will avoid BiPAP for now Coumadin coagulopathy - worse today Hb is stable thus far -Repeat PT/INR pending -Monitor -Hold Coumadin Nonsustained Vtach -Monitor -Cardiology is following Gout flare -Home allopurinol held, continue -Concern for DVT, do venous doppler -Indomethacin for pain management Abdominal distension - Denies abdominal pain currently -Amylase lipase pending -Dilauded 0.5mg IV Q4PRN (allergic to Morphine). D/C Fentanyl -S/P NG - Dr. Sullivan's D/C'd NG on 11/21 Hx of liver transplant -home meds -Recheck CMP, ammonia, Nausea/Vomiting, resolved -No current N/V -amylase lipase pending -Zofran Hypoglycemia - resolved -Levemir d/c'd -D5W decrease to 30cc/hr -Accu checks Q4 Acute on chronic renal failure -Monitor HX of CAD with CABG Afib RVR- -Cardizem gtt - is now D/C'd -consult cardiology Weakness/debility -Consult PT/OT POOL RECIO DO 11/23/18 0547: Subjective Date Seen by a Provider: Nov 23, 2018 Time Seen by a Provider: 05:42 Subjective/Events-last exam PT is alert and feels improved s/p paracentesis. He is complain of pain left knee 08/23. He states this is his gout. Denies SOB, CP, abdominal pain. Exam Exam General Appearance: Anxious, Mild Distress, Obese HEENT: PERRL/EOMI, Pharynx Normal, Moist Mucous Membranes Neck: Normal Inspection, Non Tender, Supple, Carotid Bruit Respiratory: Chest Non Tender, No Accessory Muscle Use, No Respiratory Distress , Decreased Breath Sounds Cardiovascular: No Murmur, Irregularly Irregular Capillary Refill: Less Than 3 Seconds Gastrointestinal: normal bowel sounds, non tender, soft, no organomegaly; No distended, No guarding, No rebound, No tenderness Extremity: Non Tender, No Calf Tenderness, Pedal Edema, Other (extreme tenderness to light touch of left knee region) Neurologic/Psychiatric: Alert, Oriented x3 Skin: Normal Color, Warm/Dry Lymphatic: No Adenopathy Assessment/Plan Assessment/Plan PNeumonia with immunosuppression - improving -Continue Rocephin -fever last night, continue to monitor Ascites s/p paracentesis -PT feels improved post paracentesis -Paracentesis completed yesterday with removal of 5150mL fluid - Exudative fluid with protein of 3.5, likely due to liver disease Mild acute respiratory acidosis - BiPAP QHS (nausea has resolved) Coumadin coagulopathy - worse today Hb is stable thus far -Repeat PT/INR pending -Monitor -Hold Coumadin Nonsustained Vtach -Monitor -Cardiology is following Gout flare -Home allopurinol held, continue -Concern for DVT, do venous doppler -Indomethacin for pain management Abdominal distension - Denies abdominal pain currently -Amylase lipase pending -Dilauded 0.5mg IV Q4PRN (allergic to Morphine). D/C Fentanyl -S/P NG - Dr. Sullivan's D/C'd NG on 11/21 Hx of liver transplant -home meds -Recheck CMP, ammonia, Nausea/Vomiting, resolved -No current N/V -amylase lipase pending -Zofran Hypoglycemia - resolved -monitor Acute on chronic renal failure - improving -Monitor HX of CAD with CABG Afib RVR- now controlled - cardiology -Restart coumadin now post paracentesis -Will defer dosing to cardiology Weakness/debility -Consult PT/OT Dr. Esparza is possibly transferring pt to . AARON HERNANDEZ STUDENT Nov 23, 2018 04:46 POOL RECIO DO Nov 23, 2018 05:47
[2018-11-23 06:17] LABS: ABG BASE EXCESS 0.6 MMOL/L (-2.5-2.5); ABG OXYGEN SATURATION 89 % (94-100); ABG PCO2 51 MMHG (35-45); ABG PO2 59 MMHG (79-93); ABG TCO2 27.6 MMOL/L (21.0-31.0); ALLENS TEST YES-POS; INSPIRED O2 25%; PATIENT TEMP 97.9; VENTILATOR NO
[2018-11-23 06:18] LABS: ABG PH 7.32 (7.37-7.43)
[2018-11-23] MEDS: inSUlin ASPART (NovoLOG) 1 UNIT/0.01 ML (CHARGE PER UNIT) SQ SCH ×4 (06:24→21:43)
--- NOTE | 2018-11-23 06:49 | Cardiology Progress Note ---
Subjective Date Seen by Provider: Nov 23, 2018 Time Seen by Provider: 06:47 Subjective/Events-last exam patient is laying down in bed, still having pain in his left knee. Otherwise feeling better Review of Systems General: No Chills, No Night Sweats, No Fatigue, No Malaise, No Appetite, No Other HEENT: No Head Aches, No Visual Changes, No Eye Pain, No Ear Pain, No Dysphasia , No Sinus Congestion, No Post Nasal Drip, No Sore Throat, No Other Pulmonary: No Dyspnea, No Cough, No Pleuritic Chest Pain, No Other Cardiovascular: No: Chest Pain, Palpitations, Orthopnea, Paroxysmal Noc. Dyspnea, Edema, Lt Headedness, Other Focused Exam Lactate Level 11/23/18 06:15: Lactic Acid Level 0.73 Lactic Acid Level Laboratory Tests Test 11/23/18 06:15 Lactic Acid Level 0.73 MMOL/L (0.50-2.00) Objective-Cardiology Exam Last Set of Vital Signs Vital Signs 11/23/18 11/23/18 11/23/18 04:22 04:24 06:00 Temp 99.2 Pulse 91 Resp 24 B/P (MAP) 108/76 (87) Pulse Ox 100 O2 Delivery Vapotherm O2 Flow Rate 35.00 25.00 FiO2 35 Capillary Refill : Less Than 3 Seconds I&O Intake and Output 11/23/18 00:00 Intake Total 2792 ml Output Total 1620 ml Balance 1172 ml Intake Oral 792 ml IV Total 2000 ml Output Urine Total 1620 ml General: Alert, Oriented X3, Cooperative HEENT: Atraumatic, PERRLA Neck: Supple, No JVD, No Thyromegaly Lungs: Normal Air Movement, Other (bilateral rhonchi) Heart: Normal S1, Normal S2, No Murmurs, Other (irregular, borderline tachycardic) Abdomen: Normal Bowel Sounds, Soft, No Tenderness, No Hepatosplenomegaly, No Masses Extremities: No Clubbing, No Cyanosis, Other (bilateral lower extremity edema, severe pain in the left knee) Skin: No Rashes, No Breakdown, No Significant Lesion Neuro: Normal Speech, Normal Tone, Sensation Intact Psych/Mental Status: Mental Status NL, Mood NL Results Lab Laboratory Tests 11/23/18 03:40 A/P-Cardiology Admission Diagnosis Paroxysmal atrial fibrillation Sepsis Coronary artery disease Change in mental status Assessment/Plan Paroxysmal atrial fibrillation, borderline tachycardic, but at this time, will restart Coumadin and monitor tolerance and response Severe lower extremity pain, mainly left knee pain. History of gout, on multiple pain medication, started on steroids, managed by primary care team Ventricular tachycardia, no further episodes were reported, could be secondary to electrolyte abnormality, seen by Dr. Chapman Severe Sepsis, receiving antibiotics, bilateral infiltrate on chest x-ray. On Rocephin day number 5/ Acute renal failure, history of chronic renal insufficiency, improving, continue to monitor renal function Coumadin toxicity, no active bleeding, INR is better, I will restart Coumadin today and monitor tolerance and response Moderate size ascites, history of liver transplant, status post paracentesis, reporting improvement Immunosuppression, history of liver transplant, continue to monitor Coronary artery disease, history of CABG 4 done in 1999, followed and managed by Dr Melenedz Hypertension, continue current medication monitor blood pressure Hyperlipidemia, continue to monitor at this time, Status post liver transplant in 2011 secondary to PRADO Diabetes mellitus, followed and managed by primary care physician Confusion, change in mental status, improved. Continue to monitor Clinical Quality Measures DVT/VTE Risk/Contraindication: Risk Factor Score Per Nursin RFS Level Per Nursing on Admit: 4+=Very High BLANCA TABARES MD Nov 23, 2018 06:49
[2018-11-23] MEDS: predniSONE 20 MG TAB PO SCH (06:54)
[2018-11-23] MEDS: inSUlin ASPART (NovoLOG) 1 UNIT/0.01 ML (CHARGE PER UNIT) SC SCH ×3 (07:12→16:22)
[2018-11-23 07:47] LABS: BILIRUBIN,URINE NEGATIVE (NEGATIVE); CLARITY,URINE CLEAR; COLOR,URINE YELLOW; GLUCOSE, URINE (UA) NEGATIVE (NEGATIVE); KETONES,URINE NEGATIVE (NEGATIVE); LEUKOCYTE ESTERASE ,URINE NEGATIVE (NEGATIVE); NITRITE,URINE NEGATIVE (NEGATIVE); PH,URINE 5 (5-9); PROTEIN,URINE 1+ (NEGATIVE); UROBILINOGEN,URINE NORMAL (NORMAL)
[2018-11-23 07:57] LABS: BACTERIA,URINE TRACE /HPF; WBC,URINE RARE /HPF
--- NOTE | 2018-11-23 08:09 | Diagnostic Imaging Report ---
INDICATION: Pneumonia. Sepsis. COMPARISON: 11/22/2018 FINDINGS: Single frontal radiographic view of the chest was obtained and again demonstrates mild cardiomegaly and prominence of pulmonary vasculature. Lungs continue to show diffuse prominence of interstitium. Overall, aeration is unchanged. There is some left basilar atelectasis as well. No large effusion or pneumothorax is identified. Sternotomy wires are noted. Bony structures show no gross acute abnormalities. IMPRESSION: 1. Stable exam of the chest showing cardiomegaly with sequela of CHF and interstitial pulmonary edema. Dictated by: Dictated on workstation # [id number]
[2018-11-23] MEDS: oxyCODONE ER 20 MG (OxyCONTIN CR) TAB PO SCH (08:11)
[2018-11-23] MEDS: DILTIAZEM 120 MG (CARDIZEM CD) CAP PO SCH (08:11)
[2018-11-23] MEDS: TACROLIMUS 0.5 MG (PROGRAF) CAP NON-FORMULARY PO SCH ×2 (08:11→21:44)
[2018-11-23] MEDS: URSODIOL 300 MG PO SCH ×2 (08:11→21:44)
[2018-11-23] MEDS: rOPINIRole 1 MG (REQUIP) TABLET PO SCH ×2 (08:11→21:44)
[2018-11-23] MEDS: PREGABALIN 75 MG (LYRICA) CAP PO SCH ×2 (08:12→21:43)
[2018-11-23] MEDS: DOCUSATE SODIUM 100 MG (COLACE) CAP PO SCH (08:12)
[2018-11-23] MEDS: FUROSEMIDE 40 MG (LASIX) TAB PO SCH (08:12)
[2018-11-23] MEDS: PANTOPRAZOLE 40 MG (PROTONIX) TAB PO SCH ×2 (08:12→21:44)
[2018-11-23] MEDS: meTOprolol TARTRATE 50 MG (LOPRESSOR) TAB PO SCH ×2 (08:12→21:44)
[2018-11-23] MEDS: LIDOCAINE 4% (SALONPAS) PATCH TOP SCH (08:12)
[2018-11-23] MEDS: SPIRONOLACTONE 25 MG (ALDACTONE) TAB PO SCH (08:12)
[2018-11-23] MEDS: RT-ALBUTEROL/IPRATROPIUM 3 ML (DUONEB) VIAL INH SCH ×2 (08:41→20:15)
--- NOTE | 2018-11-23 09:05 | NUR ---
THIS RN INQUIRED IF DR RECIO WANTED REPEAT ABG SINCE BEING PLACED ON BIPAP. NEW ORDERS RECEIVED TO REPEAT LAB IN AM. PT STILL TO TRANSFER TO 4TH FLOOR TODAY. PT'S INFORMED.
--- NOTE | 2018-11-23 10:04 | NUR ---
PT TRANSFERRED TO [facility] VIA CHAIR W/ STAFF AND PERSONAL BELONGINGS. PT C/O LEFT KNEE/LEG PAIN UPON MOVING TO CHAIR. REPORT GIVEN TO TERI CHESTER WHO ASSUMES CARE OF PT. NO QUESTIONS/CONCERNS VOICED.
--- NOTE | 2018-11-23 10:05 | NUR ---
Pt to floor. Received report from NEOM Armstrong. Agree with previous assessment.
--- NOTE | 2018-11-23 10:20 | Occupational Ther Daily Note ---
OT Current Status-Daily Note Subjective Nrsg present in room. Pt to transfer to 4th floor. CORTES assisted nrsg transferring pt to 4th floor. Pt c/o L knee pain, lidocaine patch on knee. Mental Status/Objective Patient Orientation: Person Therapy Code Descriptions/Definitions Functional Butler Measure: 0=Not Assessed/NA 4=Minimal Assistance 1=Total Assistance 5=Supervision or Setup 2=Maximal Assistance 6=Modified Butler 3=Moderate Assistance 7=Complete Butler Attachments: IV, Oxygen (BiPap), Telemetry Other Treatment Nrsg had pt sitting on EOB. Assist x3 to transfer pt from EOB to recliner. Due to L knee pain pt would not bend knee or wt bear on L knee. Pt was able to bear wt through B UE and R knee. Assist needed to pivot body and L LE with transfer. Pt retropulsive during transfer. Pt then was transferred to 4th floor in recliner. Pt declined transferring from recliner to bed. After therapy, pt sitting in recliner with call light/phone in reach. Nrsg and family present in room. All needs met in room. OT Short Term Goals Short Term Goals Time Frame: Dec 07, 2018 Eating(FIM): 6 Grooming(FIM): 6 Bathing(FIM): 4 Upper Body Dressing(FIM): 4 Lower Body Dressing(FIM): 4 Toileting(FIM): 6 Transfers (B,C,W/C) (FIM): 5 Toilet/Commode Transfer(FIM): 5 Shower Transfer(FIM): 4 1=Demonstrate adherence to instructed precautions during ADL tasks. 2=Patient will verbalize/demonstrate understanding of assistive devices/ modifications for ADL. 3=Patient will improve strength/tolerance for activity to enable patient to perform ADL's. OT Corporate Legal Manager Goals Retirement Goals Time Frame: Dec 21, 2018 (12/21/2017) Eating (FIM): 7 Grooming(FIM): 7 Bathing(FIM): 6 Bathing Location: L Arm, R Arm, L Upper Leg, R Upper Leg, L Lower Leg ( including foot), R Lower Leg (including foot), Chest, Abdomen, Buttocks, Perineal Area Upper Body Dressing(FIM): 6 Lower Body Dressing(FIM): 6 Toileting(FIM): 6 Transfers (B,C,W/C) (FIM): 6 Toilet/Commode Transfer(FIM): 6 Shower Transfer(FIM): 6 Additional Goals: 1-Demonstrate ADL Tasks, 2-Verbalize Understanding, 3- ImproveStrength/Ivy 1=Demonstrate adherence to instructed precautions during ADL tasks. 2=Patient will verbalize/demonstrate understanding of assistive devices/ modifications for ADL. 3=Patient will improve strength/tolerance for activity to enable patient to perform ADL's. OT Education/Plan Discharge Recommendations Plan/Recommendations: Continue POC Treatment Plan/Plan of Care Patient would benefit from OT for education, treatment and training to promote independence in ADL's, mobility, safety and/or upper extremity function for ADL' s. Plan of Care: ADL Retraining, Caregiver Training, Functional Mobility, UE Funct Exercise/Act Treatment Duration: Dec 21, 2018 Frequency: 5 times per week Estimated Hrs Per Day: .25 hour per day Agreement: Yes Rehab Potential: Fair Time/GCodes Start Time: 09:55 Stop Time: 10:18 Total Time Billed (hr/min): 23 Billed Treatment Time 1 visit-FA 2 (23 min) RIC COLEMAN Nov 23, 2018 10:20
[2018-11-23] MEDS ORDERED: NALOXONE 0.4 MG/ML 1 ML (NARCAN) VIAL IV NR (11:03)
[2018-11-23] MEDS ORDERED: MAGNESIUM 1 GM/100 ML IVPB 100 ML IV ONE ×2 (11:36)
--- NOTE | 2018-11-23 11:38 | Physical Therapy Progress Note ---
Therapy Progress Note PT treatment attempted but patient was on bipap and getting a PICC line placed. Will try back later. TABITHA KEY PT Nov 23, 2018 11:38
--- NOTE | 2018-11-23 12:43 | Diagnostic Imaging Report ---
INDICATION: PICC line placement. TIME OF EXAMINATION: 12:24 p.m. COMPARISON: Correlation is made with prior study earlier same day. FINDINGS: Right upper extremity PICC line has been placed and has a tip in good position overlying the SVC. The heart size is stable. There are changes of median sternotomy. There are some congestive changes in both lungs with central congestion and bibasilar infiltrates or atelectasis. No pneumothorax is seen. IMPRESSION: Satisfactory PICC line placement. Dictated by: Dictated on workstation # [id number]
[2018-11-23] MEDS: MAGNESIUM 1 GM/100 ML IVPB 100 ML IV SCH ×2 (12:57→13:01)
[2018-11-23] MEDS: cefTRIAXone FOR IV USE 2,000 MG in NS (IVPB) 50 ML IV SCH (13:58)
--- NOTE | 2018-11-23 14:16 | Progress Note-Hospitalist ---
Progress Note Progress Notes/Assess & Plan Date Seen 11/23/18 Time Seen by Provider: 13:58 Assessment & Plan The patient was transferred from the ICU to the floor. During the night he was noted to have temperatures in the director of early childhood hours maximizing at 101.9. His white blood count is 9700 which is similar to previously. Creatinine has declined from 1.75-1.58 from yesterday. Paracentesis was performed at noon yesterday. The volume taken was 5150 mL. Cell count showed 800 RBCs and 194 WBCs. A PICC line was placed today. Earlier this morning he had been noted to be quite sedated. Ultimately Narcan was given and he awakened. He apparently had his usually scheduled OxyContin at 20 mg twice daily +0.5 mg of hydromorphone. He is expressing discomfort now which he blames on gout. Physical exam: He is awake and appears to be uncomfortable. Lungs are clear to auscultation. CV is irregular. Abdomen is reduced and girth as compared to yesterday. Impression: Fever, unexplained. 2.ascites post-paracentesis. 3.liver transplant ([facility]). 4.diabetes. 5.gout Plan: Discussed with Dr. Blanco. Focused Exam Lactate Level 11/23/18 06:15: Lactic Acid Level 0.73 PAM VALERA MD Nov 23, 2018 14:16
--- NOTE | 2018-11-23 15:11 | Cardiology Progress Note ---
Cardiology SOAP Progress Note Subjective: respiratory distress. Objective: I&O/Vital Signs 11/23/18 11/23/18 11/23/18 11/23/18 05:00 06:00 07:00 07:04 Pulse 88 91 84 91 Resp 21 24 17 B/P (MAP) 119/69 (86) 108/76 (87) 119/68 (85) Pulse Ox 100 100 96 O2 Delivery Vapotherm Vapotherm Vapotherm O2 Flow Rate 35.00 35.00 35.00 25.00 25.00 25.00 11/23/18 11/23/18 11/23/18 11/23/18 07:55 07:55 08:00 08:00 Temp 96.9 Pulse 92 Resp 13 B/P (MAP) 133/75 (94) Pulse Ox 100 100 O2 Delivery NIV Bilevel NIV Bilevel NIV Bilevel O2 Flow Rate 30.00 25.00 FiO2 25 11/23/18 11/23/18 11/23/18 11/23/18 08:14 08:47 08:55 09:00 Pulse 89 108 98 Resp 15 12 13 B/P (MAP) 118/71 (87) Pulse Ox 100 100 97 O2 Delivery NIV Bilevel NIV Bilevel O2 Flow Rate 35.00 25.00 21.00 21.00 11/23/18 11/23/18 11/23/18 11/23/18 09:38 10:00 10:03 12:43 Temp 98.3 Pulse 118 107 99 108 Resp 16 B/P (MAP) 127/116 (120) 140/88 (105) Pulse Ox 100 90 O2 Delivery NIV Bilevel Nasal Cannula O2 Flow Rate 21.00 3.00 11/23/18 11/23/18 12:54 15:51 Temp 100.0 Pulse 103 Resp 16 B/P (MAP) 114/63 (80) Pulse Ox 95 O2 Delivery NIV Bilevel Nasal Cannula O2 Flow Rate 30.00 3.00 11/22/18 23:59 Intake Total 1742 ml Output Total 1350 ml Balance 392 ml Weight (Pounds): 263 Weight (Ounces): 5.0 Weight (Calculated Kilograms): 119.015085 Constitutional: appears stated age, AAO x 3; No apparent distress; well- developed, well-nourished Respiratory: No accessory muscle use, No respiratory distress, No chest tender , No chest expansion is symmetric; chest is bilaterally symmetric; No lungs clear to percussion; lungs clear to auscultation; No crackles, No rhonchi, No rales, No stridor, No wheezing, No pleural rub, No other Cardiovascular: No regular rate-rhythm; irregularly irregular; No extra beats, No parasternal heave is noted, No JVD, No edema, No bradycardia, No tachycardia , No point of maximal impulse, No cardiac thrills are palpable; S1 and S2; No gallop/S3, No gallop/S4, No diastolic murmur, No systolic murmur, No friction rub, No click, No other Gastrointestional: No tender, No soft, No round, No distended, No pulsatile mass, No organomegaly, No guarding, No rebound, No tenderness, No hernia, No mass, No audible bowel sounds, No abnormal bowel sounds, No abdominal bruits, No spleenomegaly, No other Extremities: No normal range of motion, No non-tender, No normal inspection, No pedal edema, No calf tenderness, No normal capillary refill, No pelvis stable , No calf tenderness, No inflammation, No pedal edema, No slow capillary refill , No swelling, No other, No abrasion, No clubbing, No cyanosis, No ecchymosis, No laceration, No no lower extremity edema bilateral, No significant edema, No tenderness, No wound Neurologic/Psychiatric: no motor/sensory deficits, alert, normal mood/affect, oriented x 3, power is 5/5 both on sides Skin: warm/dry, pallor; No rash Results/Procedures: Labs Laboratory Tests 11/22/18 17:06: Glucometer 139H 11/22/18 21:38: Glucometer 114H 11/23/18 01:31: Glucometer 103 11/23/18 03:40: White Blood Count 9.7, Red Blood Count 4.02L, Hemoglobin 10.4L, Hematocrit 34L, Mean Corpuscular Volume 84, Mean Corpuscular Hemoglobin 26, Mean Corpuscular Hemoglobin Concent 31L, Red Cell Distribution Width 18.2H, Platelet Count 121L, Mean Platelet Volume 9.9, Neutrophils (%) (Auto) 83H, Lymphocytes (%) (Auto) 8L , Monocytes (%) (Auto) 7, Eosinophils (%) (Auto) 1, Basophils (%) (Auto) 0, Neutrophils # (Auto) 8.1H, Lymphocytes # (Auto) 0.8L, Monocytes # (Auto) 0.7, Eosinophils # (Auto) 0.1, Basophils # (Auto) 0.0, Prothrombin Time 18.8H, INR Comment 1.6H, Sodium Level 136, Potassium Level 4.8, Chloride Level 104, Carbon Dioxide Level 24, Anion Gap 8, Blood Urea Nitrogen 26H, Creatinine 1.58H, Estimat Glomerular Filtration Rate 43, BUN/Creatinine Ratio 16, Glucose Level 124H, Calcium Level 8.5, Phosphorus Level 2.8, Magnesium Level 1.5L 11/23/18 06:10: Blood Gas Puncture Site R RAD, Blood Gas Patient Temperature 97.9, Arterial Blood pH 7.32*L, Arterial Blood Partial Pressure CO2 51H, Arterial Blood Partial Pressure O2 59L, Arterial Blood HCO3 26, Arterial Blood Total CO2 27.6, Arterial Blood Oxygen Saturation 89L, Arterial Blood Base Excess 0.6, Omi Test YES-POS, Blood Gas Ventilator Setting NO, Blood Gas Inspired Oxygen 25% 11/23/18 06:15: Lactic Acid Level 0.73 11/23/18 07:25: Urine Color YELLOW, Urine Clarity CLEAR, Urine pH 5, Urine Specific [place] 1.015L, Urine Protein 1+H, Urine Glucose (UA) NEGATIVE, Urine Ketones NEGATIVE, Urine Nitrite NEGATIVE, Urine Bilirubin NEGATIVE, Urine Urobilinogen NORMAL, Urine Leukocyte Esterase NEGATIVE, Urine RBC (Auto) 2+H, Urine RBC 2-5H, Urine WBC RARE, Urine Crystals NONE, Urine Bacteria TRACE, Urine Casts PRESENT, Urine Hyaline Casts 5-10H, Urine Mucus NEGATIVE, Urine Culture Indicated NO 11/23/18 08:21: Glucometer 99 11/23/18 10:26: Glucometer 112H 11/23/18 14:24: Glucometer 236H 11/23/18 15:45: Uric Acid 10.1H 11/23/18 15:47: Glucometer 233H Microbiology 11/18/18 Blood Culture - Preliminary, Resulted No growth 11/18/18 MRSA Screen - Final, Complete MRSA not isolated 11/18/18 Urine Culture - Final, Complete See Report A/P: Assessment/Dx: Chronic liver disease, status post liver transplant, Immunosuppressive therapy, CAD/CABG, Paroxysmal atrial fibrillation with rapid ventricular rate, Chronic kidney disease, Ascites, Wide-complex tachycardia Plan: Atrial fibrillation with rapid ventricular rate: Resolved. Still in atrial fibrillation with controlled ventricular rate. On metoprolol by mouth. Wide-complex tachycardia on telemetry, could be nonsustained VT due to significant electrolyte abnormalities. No further significant ventricular ectopy in the last 4 days. Supratherapeutic INR, hold warfarin. Concerned about decompensated liver disease. I will hold warfarin for now. CAD/CABG: Defer to Dr. Yadav. Likely decompensated liver disease with ascites, defer to the primary team. Respiratory distress on Vapotherm, defer to Dr. Blanco. It may be prudent to transfer the patient to a liver transplant center. I will suggest it to the primary team. Thank you for your consultation. Please call me if you have any questions. Sumaya Chapman MD, FACP, FACC, FSCAI, FHRS, CCDS Interventional Cardiology Cardiac Electrophysiology Vascular Medicine and Endovascular Interventions Alysa CHAPMAN MD Nov 23, 2018 3:11 pm
--- NOTE | 2018-11-23 15:34 | Physical Therapy Progress Note ---
Therapy Progress Note Pt remains on bipap this afternoon. Will attempt PT tomorrow. RIC CORDERO PT Nov 23, 2018 15:34
[2018-11-23] MEDS: warFARin 5 MG (COUMADIN) TAB PO SCH (18:06)
[2018-11-23] MEDS: oxyCODONE ER 10 MG (OxyCONTIN CR) TAB PO SCH (21:43)
[2018-11-23] MEDS: ALLOPURINOL 100 MG (ZYLOPRIM) TAB PO SCH (21:44)
[2018-11-24 00:04] VITALS: BP 115/62
[2018-11-24 04:03] VITALS: BP 126/56
[2018-11-24 05:13] LABS: BASOPHILS % (AUTO) 0 % (0-10); EOSINOPHILS % (AUTO) 0 % (0-10); HEMATOCRIT 38 % (40-54); HEMOGLOBIN 11.8 G/DL (13.3-17.7); LYMPHOCYTES # (AUTO) 0.7 X 10^3 (1.0-4.0); LYMPHOCYTES % (AUTO) 6 % (12-44); MEAN CORPUSCULAR HEMOGLOBIN 26 PG (25-34); MEAN CORPUSCULAR HGB CONC 31 G/DL (32-36); MEAN CORPUSCULAR VOLUME 83 FL (80-99); MEAN PLATELET VOLUME 10.4 FL (7.4-10.4); MONOCYTES # (AUTO) 0.7 X 10^3 (0.0-1.0); MONOCYTES % (AUTO) 6 % (0-12); NEUTROPHILS # (AUTO) 10.3 X 10^3 (1.8-7.8); NEUTROPHILS % (AUTO) 88 % (42-75); PLATELET COUNT 159 10^3/uL (130-400); RED CELL DISTRIBUTION WIDTH 18.1 % (10.0-14.5); WHITE BLOOD COUNT 11.6 10^3/uL (4.3-11.0)
[2018-11-24 05:22] LABS: INR 1.6 (0.8-1.4); PROTHROMBIN TIME PATIENT 19.5 SEC (12.2-14.7)
[2018-11-24 05:30] LABS: CALCIUM 9.2 MG/DL (8.5-10.1); CREATININE SERUM 1.93 MG/DL (0.60-1.30); MAGNESIUM 1.7 MG/DL (1.8-2.4); POTASSIUM 5.1 MMOL/L (3.6-5.0)
[2018-11-24] MEDS: predniSONE 20 MG TAB PO SCH (06:29)
[2018-11-24] MEDS: inSUlin ASPART (NovoLOG) 1 UNIT/0.01 ML (CHARGE PER UNIT) SQ SCH ×4 (06:29→20:55)
[2018-11-24] MEDS: inSUlin ASPART (NovoLOG) 1 UNIT/0.01 ML (CHARGE PER UNIT) SC SCH ×3 (06:29→17:04)
--- NOTE | 2018-11-24 07:08 | Diagnostic Imaging Report ---
INDICATION: Sepsis. Portable chest 4:18 a.m. FINDINGS: There are postop changes from CABG surgery. There is cardiomegaly with vascular congestion. There is some right perihilar atelectasis. Right upper extremity PICC line tip projects over the SVC. IMPRESSION: Pulmonary venous hypertension. Right perihilar infiltrate or atelectasis. No significant change from previous day. Dictated by: Dictated on workstation # [id number]
[2018-11-24] MEDS: meTOprolol TARTRATE 50 MG (LOPRESSOR) TAB PO SCH ×2 (08:23→20:56)
[2018-11-24] MEDS: cefTRIAXone FOR IV USE 2,000 MG in NS (IVPB) 50 ML IV SCH (08:23)
[2018-11-24] MEDS: rOPINIRole 1 MG (REQUIP) TABLET PO SCH ×2 (08:24→20:54)
[2018-11-24] MEDS: DILTIAZEM 120 MG (CARDIZEM CD) CAP PO SCH (08:24)
[2018-11-24] MEDS: PREGABALIN 75 MG (LYRICA) CAP PO SCH ×2 (08:24→20:54)
[2018-11-24] MEDS: PANTOPRAZOLE 40 MG (PROTONIX) TAB PO SCH ×2 (08:24→20:54)
[2018-11-24] MEDS: DOCUSATE SODIUM 100 MG (COLACE) CAP PO SCH (08:24)
[2018-11-24] MEDS: SPIRONOLACTONE 25 MG (ALDACTONE) TAB PO SCH (08:24)
[2018-11-24] MEDS: FUROSEMIDE 40 MG (LASIX) TAB PO SCH (08:24)
[2018-11-24] MEDS: oxyCODONE ER 20 MG (OxyCONTIN CR) TAB PO SCH (08:25)
[2018-11-24] MEDS: URSODIOL 300 MG PO SCH ×2 (08:25→20:57)
[2018-11-24] MEDS: TACROLIMUS 0.5 MG (PROGRAF) CAP NON-FORMULARY PO SCH ×2 (08:25→20:56)
[2018-11-24] MEDS: LIDOCAINE 4% (SALONPAS) PATCH TOP SCH (08:29)
--- NOTE | 2018-11-24 09:10 | Physical Therapy Progress Note ---
Therapy Progress Note Patient declined PT secondary to painful gout left knee. PT will attempt later today. Patient is adamant that his pneumonia is over and his diabetic issues are resolved and gout is his only issue. PT will continue to attempt. 1 ref JUAN WELLS PT Nov 24, 2018 09:10
[2018-11-24 10:14] LABS: ALANINE AMINOTRANSFERASE < 6 U/L (0-55); ALBUMIN 2.8 GM/DL (3.2-4.5); ALKALINE PHOSPHATASE 59 U/L (40-136); AMMONIA 29 UMOL/L (11-32); BILIRUBIN,TOTAL 0.3 MG/DL (0.1-1.0); BUN/CREATININE RATIO 21; CALCIUM 9.2 MG/DL (8.5-10.1); CARBON DIOXIDE 27 MMOL/L (21-32); CHLORIDE 99 MMOL/L (98-107); CREATININE SERUM 1.93 MG/DL (0.60-1.30); GFR ESTIMATED 34; GLUCOSE 247 MG/DL (70-105); POTASSIUM 5.3 MMOL/L (3.6-5.0); SODIUM 133 MMOL/L (135-145); TOTAL PROTEIN 5.5 GM/DL (6.4-8.2)
--- NOTE | 2018-11-24 10:22 | Cardiology Progress Note ---
Cardiology SOAP Progress Note Subjective: Still short of breath. Objective: I&O/Vital Signs 11/24/18 11/24/18 11/24/18 11/24/18 00:04 01:00 04:03 07:03 Temp 98.3 98.2 Pulse 69 81 78 55 Resp 18 20 B/P (MAP) 115/62 (79) 126/56 (79) Pulse Ox 96 95 O2 Delivery NIV Bilevel Nasal Cannula O2 Flow Rate 30.00 4.00 11/24/18 00:00 Intake Total 322 ml Output Total 360 ml Balance -38 ml Weight (Pounds): 253 Weight (Ounces): 6.0 Weight (Calculated Kilograms): 114.537164 Constitutional: appears stated age, AAO x 3, apparent distress, well-developed , well-nourished Respiratory: No accessory muscle use; respiratory distress; No chest tender, No chest expansion is symmetric; chest is bilaterally symmetric; No lungs clear to percussion; lungs clear to auscultation; No crackles, No rhonchi, No rales, No stridor, No wheezing, No pleural rub, No other Cardiovascular: No regular rate-rhythm; irregularly irregular; No extra beats, No parasternal heave is noted, No JVD, No edema, No bradycardia, No tachycardia , No point of maximal impulse, No cardiac thrills are palpable; S1 and S2; No gallop/S3, No gallop/S4, No diastolic murmur, No systolic murmur, No friction rub, No click, No other Gastrointestional: No tender, No soft, No round, No distended, No pulsatile mass, No organomegaly, No guarding, No rebound, No tenderness, No hernia, No mass, No audible bowel sounds, No abnormal bowel sounds, No abdominal bruits, No spleenomegaly, No other Extremities: No normal range of motion, No non-tender, No normal inspection, No pedal edema, No calf tenderness, No normal capillary refill, No pelvis stable , No calf tenderness, No inflammation, No pedal edema, No slow capillary refill , No swelling, No other, No abrasion, No clubbing, No cyanosis, No ecchymosis, No laceration, No no lower extremity edema bilateral, No significant edema, No tenderness, No wound Neurologic/Psychiatric: no motor/sensory deficits, alert, normal mood/affect, oriented x 3, power is 5/5 both on sides Skin: warm/dry, pallor; No rash Results/Procedures: Labs Laboratory Tests 11/23/18 10:26: Glucometer 112H 11/23/18 14:24: Glucometer 236H 11/23/18 15:45: Uric Acid 10.1H 11/23/18 15:47: Glucometer 233H 11/23/18 20:45: Glucometer 207H 11/23/18 23:16: Glucometer 215H 11/24/18 03:25: Glucometer 241H 11/24/18 05:00: White Blood Count 11.6H, Red Blood Count 4.59, Hemoglobin 11.8L, Hematocrit 38L , Mean Corpuscular Volume 83, Mean Corpuscular Hemoglobin 26, Mean Corpuscular Hemoglobin Concent 31L, Red Cell Distribution Width 18.1H, Platelet Count 159, Mean Platelet Volume 10.4, Neutrophils (%) (Auto) 88H, Lymphocytes (%) (Auto) 6L , Monocytes (%) (Auto) 6, Eosinophils (%) (Auto) 0, Basophils (%) (Auto) 0, Neutrophils # (Auto) 10.3H, Lymphocytes # (Auto) 0.7L, Monocytes # (Auto) 0.7, Eosinophils # (Auto) 0.0, Basophils # (Auto) 0.0, Prothrombin Time 19.5H, INR Comment 1.6H, Sodium Level 135, Potassium Level 5.1H, Chloride Level 101, Carbon Dioxide Level 25, Anion Gap 9, Blood Urea Nitrogen 38H, Creatinine 1.93H , Estimat Glomerular Filtration Rate 34, BUN/Creatinine Ratio 20, Glucose Level 217H, Calcium Level 9.2, Phosphorus Level 4.0, Magnesium Level 1.7L 11/24/18 08:41: Glucometer 213H 11/24/18 09:46: Sodium Level 133L, Potassium Level 5.3H, Chloride Level 99, Carbon Dioxide Level 27, Anion Gap 7, Blood Urea Nitrogen 40H, Creatinine 1.93H, Estimat Glomerular Filtration Rate 34, BUN/Creatinine Ratio 21, Glucose Level 247H, Calcium Level 9.2, Corrected Calcium 10.2H, Total Bilirubin 0.3, Aspartate Amino Transf (AST/SGOT) 7, Alanine Aminotransferase (ALT/SGPT) < 6, Alkaline Phosphatase 59, Ammonia 29, Total Protein 5.5L, Albumin 2.8L Microbiology 11/18/18 Blood Culture - Final, Complete No growth 11/22/18 Gram Stain - Final, Resulted 11/22/18 Body Fluid Culture, Resulted Pending 11/22/18 Fungal Culture 1 - Preliminary, Resulted 11/18/18 MRSA Screen - Final, Complete MRSA not isolated 11/18/18 Urine Culture - Final, Complete See Report A/P: Assessment/Dx: Chronic liver disease, status post liver transplant, Immunosuppressive therapy, CAD/CABG, Paroxysmal atrial fibrillation with rapid ventricular rate, Chronic kidney disease, Ascites, Wide-complex tachycardia Plan: Atrial fibrillation with rapid ventricular rate: Resolved. Still in atrial fibrillation with controlled ventricular rate. On metoprolol by mouth. Wide-complex tachycardia on telemetry, could be nonsustained VT due to significant electrolyte abnormalities. No further significant ventricular ectopy in the last 5 days. Supratherapeutic INR, hold warfarin. Concerned about decompensated liver disease. I will hold warfarin for now. CAD/CABG: Defer to Dr. Yadav. Likely decompensated liver disease with ascites, defer to the primary team. Respiratory distress on Vapotherm, defer to Dr. Blanco. Sepsis in an immunocompromised patient. Patient is being transferred to . Thank you for your consultation. Please call me if you have any questions. Sumaya Chapman MD, FACP, FACC, FSCAI, FHRS, CCDS Interventional Cardiology Cardiac Electrophysiology Vascular Medicine and Endovascular Interventions Alysa CHAPMAN MD Nov 24, 2018 10:22
--- NOTE | 2018-11-24 10:28 | Cardiology Progress Note ---
Subjective Date Seen by Provider: Nov 24, 2018 Time Seen by Provider: 10:27 Subjective/Events-last exam patient is laying down in bed, still having pain in his knee. No chest pain. Review of Systems General: No Chills, No Night Sweats; Fatigue, Malaise; No Appetite, No Other HEENT: No Head Aches, No Visual Changes, No Eye Pain, No Ear Pain, No Dysphasia , No Sinus Congestion, No Post Nasal Drip, No Sore Throat, No Other Pulmonary: No Dyspnea, No Cough, No Pleuritic Chest Pain, No Other Cardiovascular: Edema; No: Chest Pain, Palpitations, Orthopnea, Paroxysmal Noc. Dyspnea, Lt Headedness, Other Focused Exam Lactate Level 11/23/18 06:15: Lactic Acid Level 0.73 Objective-Cardiology Exam Last Set of Vital Signs Vital Signs 11/23/18 11/24/18 11/24/18 08:00 04:03 07:03 Temp 98.2 Pulse 55 Resp 20 B/P (MAP) 126/56 (79) Pulse Ox 95 O2 Delivery Nasal Cannula O2 Flow Rate 4.00 FiO2 25 Capillary Refill : Less Than 3 Seconds I&O Intake and Output 11/24/18 00:00 Intake Total 472 ml Output Total 1585 ml Balance -1113 ml Intake Oral 472 ml Output Urine Total 1585 ml # Voids 1 General: Alert, Oriented X3, Cooperative HEENT: Atraumatic, PERRLA Neck: Supple, No JVD, No Thyromegaly Lungs: Normal Air Movement, Other (bilateral rhonchi) Heart: Normal S1, Normal S2, No Murmurs, Other (irregular, borderline tachycardic) Abdomen: Normal Bowel Sounds, Soft, No Tenderness, No Hepatosplenomegaly, No Masses Extremities: No Clubbing, No Cyanosis, Other (bilateral lower extremity edema, severe pain in the left knee) Skin: No Rashes, No Breakdown, No Significant Lesion Neuro: Normal Speech, Normal Tone, Sensation Intact Psych/Mental Status: Mental Status NL, Mood NL Results Lab Laboratory Tests 11/24/18 05:00 11/24/18 09:46 A/P-Cardiology Admission Diagnosis Paroxysmal atrial fibrillation Sepsis Coronary artery disease Change in mental status Assessment/Plan Paroxysmal atrial fibrillation, better heart rate control, continue on current medications and monitor Severe lower extremity pain, mainly left knee pain. History of gout, on multiple pain medication, started on steroids, managed by primary care team Ventricular tachycardia, no further episodes were reported, could be secondary to electrolyte abnormality, seen by Dr. Chapman Severe Sepsis, receiving antibiotics, bilateral infiltrate on chest x-ray. On Rocephin day number 5/ Acute renal failure, history of chronic renal insufficiency, improving, continue to monitor renal function Coumadin toxicity, no active bleeding, INR is better, I will restart Coumadin today and monitor tolerance and response Moderate size ascites, history of liver transplant, status post paracentesis, reporting improvement Immunosuppression, history of liver transplant, continue to monitor Coronary artery disease, history of CABG 4 done in 1999, followed and managed by Dr Melendez Hypertension, continue current medication monitor blood pressure Hyperlipidemia, continue to monitor at this time, Status post liver transplant in 2011 secondary to PRADO Diabetes mellitus, followed and managed by primary care physician Confusion, change in mental status, improved. Continue to monitor Clinical Quality Measures DVT/VTE Risk/Contraindication: Risk Factor Score Per Nursin RFS Level Per Nursing on Admit: 4+=Very High BLANCA TABARES MD Nov 24, 2018 10:28
[2018-11-24] MEDS: RT-ALBUTEROL/IPRATROPIUM 3 ML (DUONEB) VIAL INH SCH ×2 (10:53→19:21)
--- NOTE | 2018-11-24 11:13 | Progress Note-Hospitalist ---
Progress Note Progress Notes/Assess & Plan Date Seen 11/24/18 Time Seen by Provider: 11:07 Assessment & Plan The patient was originally seen at 09 100 this morning. He was seen again after his came here from [place]. My concern today had been whether he needed to be transferred to [facility] as he had a rather gilles day yesterday. He in fact looks as good today as he has on any day since admission. His gouty knee problem is improving. His liver enzymes ammonia and creatinine are stable his uric acid level was 10.1 was 7.2 being the upper limit of normal in our lab. His INR is rebounding towards therapeutic at 1.6. She was able to give me a phone number to contact the liver transplant service at . I spoke to PING who is the nurse practitioner for Dr. Valdemar Phillips at [phone]. We went over the labs and she agreed that they all appeared quite satisfactory. And therefore the thought of transfer will be table for the moment. Physical exam: He is alert and afebrile. His answers are much more linear than they were yesterday. The lab was reviewed with the patient and his . Lungs are clear to auscultation. CV is slightly irregular with a controlled rate. Abdomen is large and I have not been able to assess it previously relative to ascites because of the adipose. Extremities show 1-2+ pretibial edema. Impression: Generalized improvement today. Status post liver transplant. 3.atrial fibrillation. 4.acute gouty attack. Plan: Continue to observe. ENlist PT and OT to began mobilization Focused Exam Lactate Level 11/23/18 06:15: Lactic Acid Level 0.73 PAM VALERA MD Nov 24, 2018 11:13
[2018-11-24] MEDS: HYDROmorphone 2 MG/ML VIAL (DILAUDID) IV PRN ×2 (11:48→17:05)
--- NOTE | 2018-11-24 12:46 | Physical Therapy Daily Note ---
PT Daily Note-Current Subjective Patient reluctantly agrees to PT after pain shot. Pain Numeric Pain Scale: 10-Worst Possible Pain Location: Left Location Body Site: Knee Pain Description: Acute (gout) Mental Status Patient Orientation: Person, Time, Situation Attachments: Oxygen Transfers Therapy Code Descriptions/Definitions Functional [place] Measure: 0=Not Assessed/NA 4=Minimal Assistance 1=Total Assistance 5=Supervision or Setup 2=Maximal Assistance 6=Modified [place] 3=Moderate Assistance 7=Complete [place] Therapy Quality Codes: 6 Independent with activity with or without an assistive device 5 Patient requires set up or clean up by helper. Patient completes activity by themselves 4 Supervision or touching assist (CGA). [place] provide cues , steadying assist 3 The helper provides less than half the effort to complete the activity 2 The helper provides more than half the effort to complete the activity 1 Dependent. The helper does all the effort to complete an activity 7 Patient refused to complete or attempt activity 9 The patient did not perform the activity before the current illness or injury 88 Not attempted due to Medical conditions or safety concerns Transfers (B, C, W/C) (FIM): 3 Scootin Rollin Supine to/from Sit: 3 Sit to/from Stand: 3 Bed to/from Chair: 3 Patient is very resistive with all mobility and limits self secondary to left knee pain Assessment Patient requires time to complete all functional tasks, no matter home minimal. Patient is up in recliner with needs met and declined bilateral Le exercises. PT Short Term Goals Short Term Goals Time Frame: Nov 29, 2018 Transfers (B,C,W/C) (FIM): 5 Gait Distance Comment: 10' Gait Level of Assist: 4 Gait Assistive Device: FWW PT Plan Treatment/Plan Treatment Plan: Continue Plan of Care Treatment Plan: Bed Mobility, Concurrent Therapy, Education, Functional Activity Ivy, Functional Strength, Gait, Safety, Therapeutic Exercise, Transfers Treatment Duration: Nov 29, 2018 Frequency: 6 times per week Estimated Hrs Per Day: .25 hour per day (15-30') Patient and/or Family Agrees t: Yes Time/GCodes Time In: 1145 Time Out: 1200 Total Billed Treatment Time: 15 Total Billed Treatment 1 visit FA 15 min JUAN WELLS PT Nov 24, 2018 12:46
--- NOTE | 2018-11-24 14:36 | Occupational Ther Daily Note ---
OT Current Status-Daily Note Subjective pt sitting upright at bedside recliner. His two daughter & was sitting with him, Pt stated , " I am fine today but my left knee still hurting severely cause of GOUT." Pain Numeric Pain Scale: 8 Location: Left Location Body Site: Knee Pain Description: Throbbing, Sharp Mental Status/Objective Patient Orientation: Person, Place, Time, Eyes Open Therapy Code Descriptions/Definitions Functional [place] Measure: 0=Not Assessed/NA 4=Minimal Assistance 1=Total Assistance 5=Supervision or Setup 2=Maximal Assistance 6=Modified [place] 3=Moderate Assistance 7=Complete [place] ADL-Treatment Eating (FIM): 7 Grooming (FIM): 5 Bathing (FIM): 0 Upper Body (FIM): 4 Lower Body Dressing (FIM): 2 Toileting (FIM): 2 Transfers (B, C, W/C) (FIM): 2 Toilet/Commode Transfer (FIM): 2 Other Treatment Pt participated in strengthening Ex to BUE 20 reps x 2 sets x 1 lb wt in all planes of motion to elbow & both shoulders., 25 reps with yellow theraband BUE in all planes of motion.to increase strength, activity tolerance & endurance. Education OT Patient Education: Correct positioning, Instructions to caregiver Teaching Recipient: Patient, Family Teaching Methods: Demonstration, Discussion Response to Teaching: Verbalize Understanding, Return Demonstration OT Short Term Goals Short Term Goals Time Frame: Dec 07, 2018 Eating(FIM): 6 Grooming(FIM): 6 Bathing(FIM): 4 Upper Body Dressing(FIM): 4 Lower Body Dressing(FIM): 4 Toileting(FIM): 6 Transfers (B,C,W/C) (FIM): 5 Toilet/Commode Transfer(FIM): 5 Shower Transfer(FIM): 4 1=Demonstrate adherence to instructed precautions during ADL tasks. 2=Patient will verbalize/demonstrate understanding of assistive devices/ modifications for ADL. 3=Patient will improve strength/tolerance for activity to enable patient to perform ADL's. OT Sifter And Miller Goals Sifter And Miller Goals Time Frame: Dec 21, 2018 (12/21/2017) Eating (FIM): 7 Grooming(FIM): 7 Bathing(FIM): 6 Bathing Location: L Arm, R Arm, L Upper Leg, R Upper Leg, L Lower Leg ( including foot), R Lower Leg (including foot), Chest, Abdomen, Buttocks, Perineal Area Upper Body Dressing(FIM): 6 Lower Body Dressing(FIM): 6 Toileting(FIM): 6 Transfers (B,C,W/C) (FIM): 6 Toilet/Commode Transfer(FIM): 6 Shower Transfer(FIM): 6 Additional Goals: 1-Demonstrate ADL Tasks, 2-Verbalize Understanding, 3- ImproveStrength/Ivy 1=Demonstrate adherence to instructed precautions during ADL tasks. 2=Patient will verbalize/demonstrate understanding of assistive devices/ modifications for ADL. 3=Patient will improve strength/tolerance for activity to enable patient to perform ADL's. OT Education/Plan Problem List/Assessment Assessment: Decreased Activ Tolerance, Decreased Safety Aware, Decreased UE Strength, Dependent Transfers, Impaired Bed Mobility, Impaired Funct Balance, Impaired Self-Care Skills Discharge Recommendations Plan/Recommendations: Continue POC Therapy D/C Recommendations: Home w/ Family Support, Occupational Therapy Home Care Equpiment Recommendations-D/C: Extended Bath Bench, Toilet Riser with Rails, Extended Shower Sprayer, Sticker On, Sock Aide, Long Shoe [place] Barriers to Progress severe pain in left knee due to Gout Patient/Family Goals To return home with [place] in all self care task & mobility. Treatment Plan/Plan of Care Patient would benefit from OT for education, treatment and training to promote independence in ADL's, mobility, safety and/or upper extremity function for ADL' s. Plan of Care: ADL Retraining, Caregiver Training, Functional Mobility, UE Funct Exercise/Act Treatment Duration: Dec 21, 2018 Frequency: 5 times per week Estimated Hrs Per Day: .25 hour per day Agreement: Yes Rehab Potential: Fair Time/GCodes Start Time: 13:25 Stop Time: 13:50 Total Time Billed (hr/min): 25 Billed Treatment Time 1 Visit, Ex 25 min. URIEL CARRANZA OT Nov 24, 2018 14:36
[2018-11-24 16:00] VITALS: BP 99/58
[2018-11-24] MEDS: warFARin 5 MG (COUMADIN) TAB PO SCH (17:55)
[2018-11-24] MEDS: ALLOPURINOL 100 MG (ZYLOPRIM) TAB PO SCH (20:53)
[2018-11-24] MEDS: oxyCODONE ER 10 MG (OxyCONTIN CR) TAB PO SCH (20:54)
[2018-11-24] MEDS ORDERED: BISACODYL 10 MG SUPP (DULCOLAX) PR ONE (21:00)
--- NOTE | 2018-11-24 21:00 | NUR ---
2020-SPOKE WITH ELECTRICAL CONTINUITY TESTER DR. APODACA EXPLAINING THAT PT IS WANTING TO TAKE HIS HOME MEDICATION INDOCIN FOR HIS GOUT. ALSO ASKED ABOUT PTS ACCUCHECKS AND HOW OFTEN SHE WANTS IT TAKEN AND ALSO EXPLAINED THAT PT HADNT HAD A BM SINCE 11/19/17. TELEPHONE ORDERS RECEIVED FOR ACCUCHECKS ACHS, DULCOLAX SUPPOSITORY 1X DOSE NOW, AND SHE DID NOT WANT THE INDOCIN STARTED BC PTS INR IS TOO HIGH.
--- NOTE | 2018-11-24 23:02 | NUR ---
LOPRESSOR NOT GIVEN WITH NIGHT MEDICATIONS. PTS BP WAS 109/54 AT 1999. RECHECKED BP AT 2300- 99/58. WILL CONTINUE TO MONITOR PT.
--- NOTE | 2018-11-24 23:04 | NUR ---
PT AT ONE POINT HAD ASKED WHERE HIS WEDDING RING WAS. SPOKE WITH FAMILY AND FAMILY STATED THAT [facility] HAS HIS WEEDING RING AT THIS TIME.
[2018-11-24 23:35] VITALS: BP 92/50
[2018-11-25] MEDS: HYDROmorphone 2 MG/ML VIAL (DILAUDID) IV PRN ×2 (02:33→13:00)
[2018-11-25 04:00] VITALS: BP 100/59
[2018-11-25 05:18] LABS: BASOPHILS % (AUTO) 0 % (0-10); EOSINOPHILS % (AUTO) 0 % (0-10); HEMATOCRIT 36 % (40-54); HEMOGLOBIN 11.1 G/DL (13.3-17.7); LYMPHOCYTES # (AUTO) 0.6 X 10^3 (1.0-4.0); LYMPHOCYTES % (AUTO) 6 % (12-44); MEAN CORPUSCULAR HEMOGLOBIN 26 PG (25-34); MEAN CORPUSCULAR HGB CONC 31 G/DL (32-36); MEAN CORPUSCULAR VOLUME 83 FL (80-99); MEAN PLATELET VOLUME 10.1 FL (7.4-10.4); MONOCYTES # (AUTO) 0.5 X 10^3 (0.0-1.0); MONOCYTES % (AUTO) 5 % (0-12); NEUTROPHILS # (AUTO) 9.1 X 10^3 (1.8-7.8); NEUTROPHILS % (AUTO) 89 % (42-75); PLATELET COUNT 171 10^3/uL (130-400); RED CELL DISTRIBUTION WIDTH 18.2 % (10.0-14.5); WHITE BLOOD COUNT 10.2 10^3/uL (4.3-11.0)
[2018-11-25 05:36] LABS: INR 1.6 (0.8-1.4); PROTHROMBIN TIME PATIENT 19.2 SEC (12.2-14.7)
[2018-11-25 05:42] LABS: CALCIUM 9.2 MG/DL (8.5-10.1); CREATININE SERUM 1.99 MG/DL (0.60-1.30); MAGNESIUM 1.7 MG/DL (1.8-2.4); PHOSPHORUS 4.3 MG/DL (2.3-4.7); POTASSIUM 5.2 MMOL/L (3.6-5.0)
[2018-11-25] MEDS: inSUlin ASPART (NovoLOG) 1 UNIT/0.01 ML (CHARGE PER UNIT) SQ SCH ×4 (06:09→22:18)
[2018-11-25] MEDS: predniSONE 20 MG TAB PO SCH (06:09)
[2018-11-25] MEDS: inSUlin ASPART (NovoLOG) 1 UNIT/0.01 ML (CHARGE PER UNIT) SC SCH ×3 (06:09→17:34)
[2018-11-25] MEDS: RT-ALBUTEROL/IPRATROPIUM 3 ML (DUONEB) VIAL INH SCH ×2 (07:40→19:56)
--- NOTE | 2018-11-25 08:33 | Pulmonary Progress Note ---
Subjective Time Seen by a Provider: 06:41 Subjective/Events-last exam S/P paracentesis. Pt feels improved. Sepsis Event Evaluation Height, Weight, BMI Height: 6'0.00" Weight: 256lbs. 6.0oz. 116.240125ki; 32.1 BMI Method:Stated Focused Exam Lactate Level 11/23/18 06:15: Lactic Acid Level 0.73 Exam Exam Vital Signs Date Time Temp Pulse Resp B/P (MAP) Pulse Ox O2 Delivery O2 Flow Rate FiO2 11/25/18 07:40 96 Nasal Cannula 2.00 11/25/18 07:06 85 11/25/18 04:00 97.2 84 18 100/59 (73) 94 Nasal Cannula 4.00 11/25/18 01:00 78 11/24/18 23:35 97.2 80 18 92/50 (64) 93 Nasal Cannula 4.00 11/24/18 21:00 96 Nasal Cannula 3.00 11/24/18 19:21 98 Nasal Cannula 3.00 11/24/18 19:00 64 11/24/18 16:00 98.3 80 20 99/58 (72) 98 Nasal Cannula 4.00 11/24/18 15:44 86 96 32 11/24/18 15:43 Nasal Cannula 3.00 11/24/18 12:57 83 11/24/18 09:00 96 Nasal Cannula 3.00 I & O 11/25/18 07:00 Intake Total 3090 ml Output Total 750 ml Balance 2340 ml Height & Weight Height: 6'0.00" Weight: 256lbs. 6.0oz. 116.136781lt; 32.1 BMI Method:Stated General Appearance: Anxious, Mild Distress, Obese HEENT: PERRL/EOMI, Pharynx Normal, Moist Mucous Membranes Neck: Normal Inspection, Non Tender, Supple, Carotid Bruit Respiratory: Chest Non Tender, No Accessory Muscle Use, No Respiratory Distress , Decreased Breath Sounds Cardiovascular: No Murmur, Irregularly Irregular Capillary Refill: Less Than 3 Seconds Gastrointestinal: normal bowel sounds, non tender, soft, no organomegaly; No distended, No guarding, No rebound, No tenderness Extremity: Non Tender, No Calf Tenderness, Pedal Edema, Other (extreme tenderness to light touch of left knee region) Neurologic/Psychiatric: Alert, Oriented x3 Skin: Normal Color, Warm/Dry Lymphatic: No Adenopathy Results Lab Laboratory Tests 11/24/18 05:00 11/24/18 09:46 11/25/18 05:10 Assessment/Plan Assessment/Plan Ascites s/p paracentesis -Paracentesis completed yesterday with removal of 5150mL fluid - Exudative fluid with protein of 3.5, likely due to liver disease Mild acute respiratory acidosis - BiPAP QHS (nausea has resolved) Gout flare -steroids, allopurinol Hx of liver transplant -home meds Acute on chronic renal failure HX of CAD with CABG Afib RVR- now controlled - cardiology -Restart coumadin now post paracentesis -Will defer dosing to cardiology Weakness/debility -Consult PT/OT POOL RECIO DO Nov 25, 2018 08:32
--- NOTE | 2018-11-25 08:49 | Diagnostic Imaging Report ---
INDICATION: Pneumonia followup. EXAMINATION: Chest, 11/25/2018. COMPARISON: 11/24/2018. FINDINGS: There is cardiomegaly. Pulmonary vascular congestion slightly improved. Bilateral infiltrates slightly improving as well with some persistent pulmonary edema noted. No pneumothorax or significant effusions. Sternotomy wires and clips stable. Right PICC line tip stable. IMPRESSION: 1. Improving appearance of the lungs. Dictated by: Dictated on workstation # [id number]
[2018-11-25] MEDS: SPIRONOLACTONE 25 MG (ALDACTONE) TAB PO SCH (08:58)
[2018-11-25] MEDS: URSODIOL 300 MG PO SCH ×2 (08:58→22:12)
[2018-11-25] MEDS: TACROLIMUS 0.5 MG (PROGRAF) CAP NON-FORMULARY PO SCH ×2 (08:58→22:11)
[2018-11-25] MEDS: rOPINIRole 1 MG (REQUIP) TABLET PO SCH ×2 (08:58→22:15)
[2018-11-25] MEDS: PANTOPRAZOLE 40 MG (PROTONIX) TAB PO SCH ×2 (08:58→22:16)
[2018-11-25] MEDS: oxyCODONE ER 20 MG (OxyCONTIN CR) TAB PO SCH (08:58)
[2018-11-25] MEDS: DILTIAZEM 120 MG (CARDIZEM CD) CAP PO SCH (08:59)
[2018-11-25] MEDS: PREGABALIN 75 MG (LYRICA) CAP PO SCH ×2 (08:59→22:15)
[2018-11-25] MEDS: DOCUSATE SODIUM 100 MG (COLACE) CAP PO SCH (08:59)
[2018-11-25] MEDS: meTOprolol TARTRATE 50 MG (LOPRESSOR) TAB PO SCH ×2 (08:59→22:17)
[2018-11-25] MEDS: FUROSEMIDE 40 MG (LASIX) TAB PO SCH (08:59)
[2018-11-25] MEDS: LIDOCAINE 4% (SALONPAS) PATCH TOP SCH (09:04)
--- NOTE | 2018-11-25 09:44 | Physical Therapy Daily Note ---
PT Daily Note-Current Subjective Pt reports doing ok as long as he doesn't have to move his left leg or get up on it, but agreeable to PT treatment. Jessica present and states she was given report that it took 3 person assist to get pt back to bed from chair yesterday. Pt states "it really wasn't that bad". present and states she will begin him on a med to help the pain for his knee. Pain Numeric Pain Scale: 9 Location: Left Location Body Site: Knee Comment: denies pain lying still, excruciating gout pain with mvmnt, shreya with WB Appearance Pre PT treatment, Pt supine in bed with head elevated, awake and alert, trying to figure out how to use his cell phone. At end of session, pt up in recliner with phone and call light within reach speaking with nurse and doctor Mental Status Patient Orientation: Person, Place, Time, Eyes Open, Situation Attachments: Saline Lock, Oxygen nurse attached longer O2 tube for pt to be more mobile Transfers Therapy Code Descriptions/Definitions Functional [place] Measure: 0=Not Assessed/NA 4=Minimal Assistance 1=Total Assistance 5=Supervision or Setup 2=Maximal Assistance 6=Modified [place] 3=Moderate Assistance 7=Complete [place] Therapy Quality Codes: 6 Independent with activity with or without an assistive device 5 Patient requires set up or clean up by helper. Patient completes activity by themselves 4 Supervision or touching assist (CGA). [place] provide cues , steadying assist 3 The helper provides less than half the effort to complete the activity 2 The helper provides more than half the effort to complete the activity 1 Dependent. The helper does all the effort to complete an activity 7 Patient refused to complete or attempt activity 9 The patient did not perform the activity before the current illness or injury 88 Not attempted due to Medical conditions or safety concerns Transfers (B, C, W/C) (FIM): 4 Scootin Rollin Supine to/from Sit: 4 Sit to/from Stand: 5 Bed to/from Chair: 5 pt requiring min assist to move and support LLE due to pain from gout in knee. All other transitions requiring max verb inst/encouragement and CGA for safety. Pt insisting on putting towel under foot to help slide it while performing stand pivot transfer, was able to get pt to agree to not use it with discussion of safety and the need to increase mobility without that assist Gait Training Gait (FIM): 1 Distance (FIM): 1=up to 49 ft Distance: 5 Gait Persons Needed: 1 Gait Assistive Device: FWW max encouragement, CGA, difficulty with WB LLE due to pain from gout in knee, shuffle gait pattern with RLE and heavily relying on FWW Treatments safety gait and transfer training Assessment Increased time required with all activities. decreased ability with mobility due to increased pain left knee from gout. Pain may decrease with med Dr is ordering for pt. which will help to improve mobility due to pt statement that when he is on the med he can run circles around most people PT Short Term Goals Short Term Goals Time Frame: Nov 29, 2018 Transfers (B,C,W/C) (FIM): 5 Gait Distance Comment: 10' Gait Level of Assist: 4 Gait Assistive Device: FWW PT Plan Problem List Problem List: Activity Tolerance, Functional Strength, Safety, Balance, Gait, Transfer, Bed Mobility, ROM Treatment/Plan Treatment Plan: Continue Plan of Care Treatment Plan: Bed Mobility, Concurrent Therapy, Education, Functional Activity [place], Functional Strength, Gait, Safety, Therapeutic Exercise, Transfers Treatment Duration: Nov 29, 2018 Frequency: 6 times per week Estimated Hrs Per Day: .25 hour per day (15-30') Patient and/or Family Agrees t: Yes Safety Risks/Education Patient Education: Gait Training, Transfer Techniques, Disease Process, Safety Issues Teaching Recipient: Patient Teaching Methods: Demonstration, Discussion Response to Teaching: Verbalize Understanding, Return Demonstration Time/GCodes Time In: 910 Time Out: 936 Total Billed Treatment Time: 26 Total Billed Treatment 1 visit GT x10 min FA x 16 min STAR MONAE PTA Nov 25, 2018 09:44
--- NOTE | 2018-11-25 10:30 | NUR ---
PT HERE, UP IN CHAIR WITH WALKER, C/O PAIN IN LEFT KNEE, KNEE SWOLLEN, DR APODACA HERE AND ORDERS GIVEN, PICC LINE WITHOUT REDNESS OR SWELLING, VOIDING [place] COLOR URINE, O2 ON PER NC AT 3 LITERS, SCROTUM SWOLLEN, APPETITE GOOD, CALL LIGHT WITHIN REACH.
--- NOTE | 2018-11-25 11:04 | Progress Note-Hospitalist ---
Subjective HPI/CC On Admission Date Seen by Provider: Nov 25, 2018 Time Seen by Provider: 10:30 Pt is a 73yoCM with a PMH of CAD s/p CABG, liver transplant on chronic immune suppressants, and a-fib who presented to the ER this morning due to nausea and vomiting. He is unable to provide me any history at this time. The only question he answer appropriately for me was his name. ALl history is obtained through records. He apparently presented to the ER due to nausea and vomiting and was found to be febrile and in Subjective/Events-last exam Patient is sitting up and is awake and alert. He has diffuse anasarca. BUN/ creatinine and creatinine is ranging up. He did not receive albumin during this paracentesis. Patient complains primarily of his gout. INR is down to 1.6. Review of Systems Musculoskeletal: leg pain Neurological: Weakness Focused Exam Lactate Level 11/23/18 06:15: Lactic Acid Level 0.73 Objective Exam Vital Signs Vital Signs Date Time Temp Pulse Resp B/P (MAP) Pulse Ox O2 Delivery O2 Flow Rate FiO2 11/25/18 09:43 96 Nasal Cannula 3.00 11/25/18 07:06 85 11/25/18 04:00 97.2 18 100/59 (73) 11/24/18 15:44 32 Capillary Refill : Less Than 3 Seconds General Appearance: Chronically ill Neck: Normal Inspection, Non Tender Respiratory: Lungs Clear, Normal Breath Sounds, No Accessory Muscle Use, No Respiratory Distress Cardiovascular: Irregularly Irregular Gastrointestinal: Distended Rectal: Deferred Back: Normal Inspection Extremity: Pedal Edema Neurologic/Psychiatric: Alert, Disoriented Skin: Pallor Results/Procedures Lab Laboratory Tests 11/25/18 05:10 Patient resulted labs reviewed. Imaging: Reviewed Imaging Report Assessment/Plan Assessment and Plan Assess & Plan/Chief Complaint 1. Pneumonia 2. History of liver transplant with ascites status post large volume paracentesis will add back albumin. 3. Increased BUN/creatinine will monitor closely for possible hepatorenal syndrome after paracentesis 4. Atrial fibrillation with history of super therapeutic INR now subtherapeutic will increase Coumadin tonight only 5. Gout we will cautiously give 2 days of Indocin since this is impeding the patient's ability to ambulate and get stronger 6. Coronary artery disease stable Clinical Quality Measures DVT/VTE Risk/Contraindication: Risk Factor Score Per Nursin RFS Level Per Nursing on Admit: 4+=Very High HERMANN APODACA MD Nov 25, 2018 11:04
[2018-11-25] MEDS ORDERED: ALBUMIN 25% 25 GM/100 ML 100 ML IV NR (11:26)
[2018-11-25] MEDS: INDOMETHACIN 25 MG (INDOCIN) CAP PO SCH ×3 (11:31→22:16)
--- NOTE | 2018-11-25 15:54 | Progress Note-Cardiology ---
Cardiology SOAP Progress Note Subjective: No cp, palp, syncope No shortness of breath at rest Notes gen malaise and weakness Objective: I&O/Vital Signs 11/25/18 11/25/18 11/25/18 11/25/18 04:00 07:06 07:40 09:43 Temp 97.2 Pulse 84 85 Resp 18 B/P (MAP) 100/59 (73) Pulse Ox 94 96 96 O2 Delivery Nasal Cannula Nasal Cannula Nasal Cannula O2 Flow Rate 4.00 2.00 3.00 11/25/18 12:54 Pulse 68 11/25/18 00:00 Intake Total 2890 ml Output Total 300 ml Balance 2590 ml Weight (Pounds): 256 Weight (Ounces): 6.0 Weight (Calculated Kilograms): 116.373735 Constitutional: appears stated age, AAO x 3, apparent distress, well-developed , well-nourished Respiratory: No accessory muscle use; chest is bilaterally symmetric, lungs clear to auscultation Cardiovascular: irregularly irregular, S1 and S2, systolic murmur (soft MAHSA at card base) Gastrointestional: No tender; soft; No guarding, No rebound; audible bowel sounds Extremities: other (mild bilat leg edema); No clubbing, No cyanosis Neurologic/Psychiatric: alert, oriented x 3, grossly intact, power is 5/5 both on sides Skin: warm/dry; No cyanosis, No cool; pallor; No rash, No rash on exposed areas , No ulcerations on exposed areas Results/Procedures: Labs Laboratory Tests 11/24/18 16:11: Glucometer 245H 11/24/18 20:40: Glucometer 233H 11/25/18 05:10: White Blood Count 10.2, Red Blood Count 4.33L, Hemoglobin 11.1L, Hematocrit 36L , Mean Corpuscular Volume 83, Mean Corpuscular Hemoglobin 26, Mean Corpuscular Hemoglobin Concent 31L, Red Cell Distribution Width 18.2H, Platelet Count 171, Mean Platelet Volume 10.1, Neutrophils (%) (Auto) 89H, Lymphocytes (%) (Auto) 6L , Monocytes (%) (Auto) 5, Eosinophils (%) (Auto) 0, Basophils (%) (Auto) 0, Neutrophils # (Auto) 9.1H, Lymphocytes # (Auto) 0.6L, Monocytes # (Auto) 0.5, Eosinophils # (Auto) 0.0, Basophils # (Auto) 0.0, Prothrombin Time 19.2H, INR Comment 1.6H, Sodium Level 136, Potassium Level 5.2H, Chloride Level 100, Carbon Dioxide Level 26, Anion Gap 10, Blood Urea Nitrogen 47H, Creatinine 1.99H , Estimat Glomerular Filtration Rate 33, BUN/Creatinine Ratio 24, Glucose Level 177H, Calcium Level 9.2, Phosphorus Level 4.3, Magnesium Level 1.7L 11/25/18 11:09: Glucometer 200H Microbiology 11/23/18 Blood Culture - Preliminary, Resulted No growth 11/22/18 Gram Stain - Final, Resulted 11/22/18 Body Fluid Culture - Preliminary, Resulted No growth 11/22/18 Fungal Culture 1 - Preliminary, Resulted 11/18/18 MRSA Screen - Final, Complete MRSA not isolated 11/18/18 Urine Culture - Final, Complete See Report Laboratory Tests 11/24/18 05:00 11/24/18 09:46 11/25/18 05:10 A/P: Assessment: Paroxysmal atrial fibrillation NSVT w/o any recurrence for several days. May have been aberrantly conducted SVT /AFib or NSVT due to elec abn Pneumonia and sepsis, managed by the Med Svce Acute on chronic renal failure, improving Subtherapeutic INR Chronic immunosuppression after hepatic transplant Coronary artery disease, history of CABG 4 done in 1999, clinically stable Hypertension Hyperlipidemia Diabetes mellitus, followed and managed by primary care physician Plan: * I reviewed his records, interviewed and examined him, and answered his questions * Complex management due to multiple comorbidities * Resume warfarin tonight * Monitor labs ILIR HAY MD FACP FAC CCDS Nov 25, 2018 15:54
[2018-11-25 16:00] VITALS: BP 101/56
[2018-11-25 18:55] VITALS: BP 103/53
[2018-11-25] MEDS ORDERED: warFARin 7.5 MG (COUMADIN) TAB PO NR (19:00)
[2018-11-25 22:15] VITALS: BP 111/55
[2018-11-25] MEDS: oxyCODONE ER 10 MG (OxyCONTIN CR) TAB PO SCH (22:15)
[2018-11-25] MEDS: ALLOPURINOL 100 MG (ZYLOPRIM) TAB PO SCH (22:17)
[2018-11-25 23:12] VITALS: BP 109/55
[2018-11-26] MEDS: HYDROmorphone 2 MG/ML VIAL (DILAUDID) IV PRN ×2 (00:23→16:01)
[2018-11-26 05:44] VITALS: BP 108/66
[2018-11-26 05:47] LABS: BASOPHILS % (AUTO) 0 % (0-10); EOSINOPHILS % (AUTO) 0 % (0-10); HEMATOCRIT 35 % (40-54); HEMOGLOBIN 10.6 G/DL (13.3-17.7); LYMPHOCYTES # (AUTO) 0.6 X 10^3 (1.0-4.0); LYMPHOCYTES % (AUTO) 8 % (12-44); MEAN CORPUSCULAR HEMOGLOBIN 25 PG (25-34); MEAN CORPUSCULAR HGB CONC 31 G/DL (32-36); MEAN CORPUSCULAR VOLUME 83 FL (80-99); MONOCYTES # (AUTO) 0.5 X 10^3 (0.0-1.0); MONOCYTES % (AUTO) 6 % (0-12); NEUTROPHILS # (AUTO) 6.3 X 10^3 (1.8-7.8); NEUTROPHILS % (AUTO) 86 % (42-75); PLATELET COUNT 185 10^3/uL (130-400); WHITE BLOOD COUNT 7.3 10^3/uL (4.3-11.0)
[2018-11-26 05:57] LABS: INR 2.3 (0.8-1.4); PROTHROMBIN TIME PATIENT 25.5 SEC (12.2-14.7)
[2018-11-26 06:02] LABS: CREATININE SERUM 2.3 MG/DL (0.60-1.30); MAGNESIUM 1.8 MG/DL (1.8-2.4); PHOSPHORUS 3.5 MG/DL (2.3-4.7); POTASSIUM 5.1 MMOL/L (3.6-5.0)
[2018-11-26] MEDS: inSUlin ASPART (NovoLOG) 1 UNIT/0.01 ML (CHARGE PER UNIT) SQ SCH ×4 (06:35→22:13)
[2018-11-26] MEDS: predniSONE 20 MG TAB PO SCH (06:35)
[2018-11-26] MEDS: inSUlin ASPART (NovoLOG) 1 UNIT/0.01 ML (CHARGE PER UNIT) SC SCH ×3 (06:36→16:04)
[2018-11-26 08:00] VITALS: BP 99/62
--- NOTE | 2018-11-26 08:00 | NUR ---
Lopressor held at this time due to blood pressures of 90's/50's. Will monitor BP throughout the day.
--- NOTE | 2018-11-26 08:58 | Diagnostic Imaging Report ---
EXAMINATION: Portable erect AP chest obtained at 250h. INDICATION: Pneumonia The cardiomegaly and the sternotomy wires and surgical clips and the right-sided PICC line seen on the prior exam of 11/25/2018 are again evident and no different. Both lungs do seem better aerated than on the prior exam and the left lung is now generally clear. There may still be a small amount of fluid in the left lung base. The alveolar/interstitial infiltrate in the right lung has also diminished although there is some residual pneumonia/atelectasis in the right upper lobe. The mediastinum is not widened. The osseous structures are intact. IMPRESSION: The appearance of the chest continues to improve slowly. Both lungs do seem better aerated. A followup exam would be recommended for continued study. Dictated by: Dictated on workstation # [id number]
[2018-11-26] MEDS: RT-ALBUTEROL/IPRATROPIUM 3 ML (DUONEB) VIAL INH SCH ×2 (09:05→20:15)
[2018-11-26] MEDS: LIDOCAINE 4% (SALONPAS) PATCH TOP SCH (09:13)
[2018-11-26] MEDS: rOPINIRole 1 MG (REQUIP) TABLET PO SCH ×2 (09:14→22:14)
[2018-11-26] MEDS: PREGABALIN 75 MG (LYRICA) CAP PO SCH ×2 (09:14→22:13)
[2018-11-26] MEDS: SPIRONOLACTONE 25 MG (ALDACTONE) TAB PO SCH (09:14)
[2018-11-26] MEDS: DILTIAZEM 120 MG (CARDIZEM CD) CAP PO SCH (09:14)
[2018-11-26] MEDS: PANTOPRAZOLE 40 MG (PROTONIX) TAB PO SCH ×2 (09:14→22:14)
[2018-11-26] MEDS: FUROSEMIDE 40 MG (LASIX) TAB PO SCH ×2 (09:14→16:03)
[2018-11-26] MEDS: oxyCODONE ER 20 MG (OxyCONTIN CR) TAB PO SCH (09:14)
[2018-11-26] MEDS: meTOprolol TARTRATE 50 MG (LOPRESSOR) TAB PO SCH (09:15)
[2018-11-26] MEDS: INDOMETHACIN 25 MG (INDOCIN) CAP PO SCH (09:15)
[2018-11-26] MEDS: DOCUSATE SODIUM 100 MG (COLACE) CAP PO SCH (09:15)
[2018-11-26] MEDS: URSODIOL 300 MG PO SCH ×2 (09:16→22:11)
[2018-11-26] MEDS: TACROLIMUS 0.5 MG (PROGRAF) CAP NON-FORMULARY PO SCH ×2 (09:16→22:11)
[2018-11-26 12:00] VITALS: BP 120/55
--- NOTE | 2018-11-26 12:19 | Progress Note-Cardiology ---
Cardiology SOAP Progress Note Subjective: Notes gen malaise and weakness No cp or palp or syncope No shortness of breath at rest Objective: I&O/Vital Signs 11/26/18 11/26/18 11/26/18 11/26/18 01:00 05:44 07:04 09:00 Temp 97.1 Pulse 90 70 71 Resp 20 B/P (MAP) 108/66 (80) Pulse Ox 94 96 O2 Delivery Room Air Nasal Cannula O2 Flow Rate 3.00 11/26/18 09:05 Pulse Ox 91 O2 Delivery Room Air O2 Flow Rate 0.00 FiO2 21 11/26/18 00:00 Intake Total 1420 ml Output Total 950 ml Balance 470 ml Weight (Pounds): 254 Weight (Ounces): 6.0 Weight (Calculated Kilograms): 115.504542 Constitutional: appears stated age, AAO x 3, apparent distress, well-developed , well-nourished Respiratory: No accessory muscle use; chest is bilaterally symmetric, lungs clear to auscultation Cardiovascular: irregularly irregular, S1 and S2, systolic murmur (soft MAHSA at card base) Gastrointestional: No tender; soft; No guarding, No rebound; audible bowel sounds Extremities: other (mild bilat leg edema); No clubbing, No cyanosis Neurologic/Psychiatric: alert, oriented x 3, grossly intact, power is 5/5 both on sides Skin: warm/dry; No cyanosis, No cool; pallor; No rash, No rash on exposed areas , No ulcerations on exposed areas Results/Procedures: Labs Laboratory Tests 11/25/18 16:08: Glucometer 189H 11/25/18 20:30: Glucometer 188H 11/26/18 05:20: Glucometer 228H 11/26/18 05:25: White Blood Count 7.3, Red Blood Count 4.17L, Hemoglobin 10.6L, Hematocrit 35L, Mean Corpuscular Volume 83, Mean Corpuscular Hemoglobin 25, Mean Corpuscular Hemoglobin Concent 31L, Red Cell Distribution Width 18.0H, Platelet Count 185, Mean Platelet Volume 11.0H, Neutrophils (%) (Auto) 86H, Lymphocytes (%) (Auto) 8L, Monocytes (%) (Auto) 6, Eosinophils (%) (Auto) 0, Basophils (%) (Auto) 0, Neutrophils # (Auto) 6.3, Lymphocytes # (Auto) 0.6L, Monocytes # (Auto) 0.5, Eosinophils # (Auto) 0.0, Basophils # (Auto) 0.0, Prothrombin Time 25.5H, INR Comment 2.3H, Sodium Level 136, Potassium Level 5.1H, Chloride Level 100, Carbon Dioxide Level 25, Anion Gap 11, Blood Urea Nitrogen 54H, Creatinine 2.30H , Estimat Glomerular Filtration Rate 28, BUN/Creatinine Ratio 23, Glucose Level 269H, Calcium Level 9.0, Phosphorus Level 3.5, Magnesium Level 1.8 11/26/18 11:18: Glucometer 198H Microbiology 11/23/18 Blood Culture - Preliminary, Resulted No growth 11/22/18 Gram Stain - Final, Resulted 11/22/18 Body Fluid Culture - Preliminary, Resulted No growth 11/22/18 Fungal Culture 1 - Preliminary, Resulted 11/18/18 MRSA Screen - Final, Complete MRSA not isolated 11/18/18 Urine Culture - Final, Complete See Report A/P: Assessment: Worsening renal failure and mild hyperkalemia after paracentesis, consider hepatorenal syndrome INR currently therapeutic (but with rapid rise with just a single dose of warfarin on 11/25/18) Paroxysmal atrial fibrillation with an intermittently slow vent response NSVT w/o any recurrence for several days. 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
--- NOTE | 2018-11-26 14:14 | Progress Note-Hospitalist ---
Subjective HPI/CC On Admission Date Seen by Provider: Nov 26, 2018 Time Seen by Provider: 13:00 Pt is a 73yoCM with a PMH of CAD s/p CABG, liver transplant on chronic immune suppressants, and a-fib who presented to the ER this morning due to nausea and vomiting. He is unable to provide me any history at this time. The only question he answer appropriately for me was his name. ALl history is obtained through records. He apparently presented to the ER due to nausea and vomiting and was found to be febrile and in Subjective/Events-last exam Patient is feeling much better today mostly secondary to because his knee doesn' t hurt. He seems to be breathing well although he is pale. Retinashahzad notes up to 2.5 today. Discussed his case with Dr. Hawkins we both agree to try and minimize the intake of Indocin and try and use albumin with split dose Lasix and hold the spironolactone. This is discussed with the . Review of Systems Pulmonary: Dyspnea Objective Exam Vital Signs Vital Signs Date Time Temp Pulse Resp B/P (MAP) Pulse Ox O2 Delivery O2 Flow Rate FiO2 11/26/18 13:11 88 11/26/18 12:00 97.1 18 120/55 (76) 96 Room Air 11/26/18 09:05 0.00 21 Capillary Refill : Less Than 3 Seconds General Appearance: Chronically ill Respiratory: Chest Non Tender, Lungs Clear, Normal Breath Sounds, No Accessory Muscle Use, No Respiratory Distress Cardiovascular: Regular Rate, Rhythm, No Gallop, Systolic Murmur Gastrointestinal: Normal Bowel Sounds, Soft Extremity: Pedal Edema Results/Procedures Lab Laboratory Tests 11/26/18 05:25 Patient resulted labs reviewed. Imaging: Reviewed Imaging Report Assessment/Plan Assessment and Plan Assess & Plan/Chief Complaint 1. Pneumonia 2. History of liver transplant with ascites status post large volume paracentesis will add back albumin. 3. Increased BUN/creatinine will monitor closely for possible hepatorenal syndrome after paracentesis-we will try and minimize use of Indocin and because of the hyperkalemia hold the spironolactone 4. Atrial fibrillation with history of super therapeutic INR now therapeutic will hold Coumadin tonight only-and continue to monitor daily 5. Gout we will cautiously give 2 days of Indocin since this is impeding the patient's ability to ambulate and get stronger 6. Coronary artery disease stable Clinical Quality Measures DVT/VTE Risk/Contraindication: Risk Factor Score Per Nursin RFS Level Per Nursing on Admit: 4+=Very High HERMANN APODACA MD Nov 26, 2018 14:14
[2018-11-26] MEDS ORDERED: INDOMETHACIN 25 MG (INDOCIN) CAP PO PRN (14:15)
[2018-11-26 15:40] VITALS: BP 105/61
[2018-11-26] MEDS: ALBUMIN 25% 25 GM/100 ML 100 ML IV SCH ×2 (16:09→22:10)
[2018-11-26 19:00] VITALS: BP 113/62
[2018-11-26] MEDS: ALLOPURINOL 100 MG (ZYLOPRIM) TAB PO SCH (22:12)
[2018-11-26] MEDS: meTOprolol TARTRATE 25 MG (LOPRESSOR) TABLET PO SCH (22:12)
[2018-11-26] MEDS: oxyCODONE ER 10 MG (OxyCONTIN CR) TAB PO SCH (22:12)
[2018-11-27 00:47] VITALS: BP 122/77
[2018-11-27 03:50] VITALS: BP 114/69
[2018-11-27 06:00] LABS: BASOPHILS % (AUTO) 0 % (0-10); EOSINOPHILS % (AUTO) 0 % (0-10); HEMATOCRIT 35 % (40-54); HEMOGLOBIN 11.3 G/DL (13.3-17.7); LYMPHOCYTES # (AUTO) 0.5 X 10^3 (1.0-4.0); LYMPHOCYTES % (AUTO) 8 % (12-44); MEAN CORPUSCULAR HEMOGLOBIN 26 PG (25-34); MEAN CORPUSCULAR HGB CONC 32 G/DL (32-36); MEAN CORPUSCULAR VOLUME 82 FL (80-99); MEAN PLATELET VOLUME 10.5 FL (7.4-10.4); MONOCYTES # (AUTO) 0.5 X 10^3 (0.0-1.0); MONOCYTES % (AUTO) 7 % (0-12); NEUTROPHILS % (AUTO) 86 % (42-75); PLATELET COUNT 204 10^3/uL (130-400); RED CELL DISTRIBUTION WIDTH 18.4 % (10.0-14.5)
[2018-11-27 06:21] LABS: INR 2.7 (0.8-1.4); PROTHROMBIN TIME PATIENT 29.1 SEC (12.2-14.7)
[2018-11-27 06:25] LABS: CALCIUM 9.2 MG/DL (8.5-10.1); CREATININE SERUM 2.38 MG/DL (0.60-1.30); MAGNESIUM 1.8 MG/DL (1.8-2.4); PHOSPHORUS 3.6 MG/DL (2.3-4.7); POTASSIUM 5.2 MMOL/L (3.6-5.0)
[2018-11-27] MEDS: FUROSEMIDE 40 MG (LASIX) TAB PO SCH ×2 (06:33→16:12)
[2018-11-27] MEDS: ALBUMIN 25% 25 GM/100 ML 100 ML IV SCH ×3 (06:33→22:10)
[2018-11-27] MEDS: inSUlin ASPART (NovoLOG) 1 UNIT/0.01 ML (CHARGE PER UNIT) SC SCH ×3 (06:33→16:13)
[2018-11-27] MEDS: predniSONE 20 MG TAB PO SCH (06:33)
[2018-11-27] MEDS: inSUlin ASPART (NovoLOG) 1 UNIT/0.01 ML (CHARGE PER UNIT) SQ SCH ×4 (06:34→21:19)
--- NOTE | 2018-11-27 07:13 | Diagnostic Imaging Report ---
INDICATION: Pneumonia and sepsis. Portable AP upright view of the chest is obtained with comparison made to study of one day earlier. FINDINGS: There is stable cardiomegaly. Right upper extremity PICC is in stable position. Coarse infiltrate in the right upper lobe is similar to previous study. There is no evidence of pneumothorax or significant pleural fluid. Remainder of the chest is stable and unremarkable. IMPRESSION: Mild residual right upper lobe infiltrate without consolidation or adverse change detected. Dictated by: Dictated on workstation # [id number]
[2018-11-27] MEDS: RT-ALBUTEROL/IPRATROPIUM 3 ML (DUONEB) VIAL INH SCH ×2 (08:05→21:00)
[2018-11-27 08:22] VITALS: BP 133/60
[2018-11-27] MEDS: DOCUSATE SODIUM 100 MG (COLACE) CAP PO SCH (08:55)
[2018-11-27] MEDS: PANTOPRAZOLE 40 MG (PROTONIX) TAB PO SCH ×2 (08:55→21:18)
[2018-11-27] MEDS: rOPINIRole 1 MG (REQUIP) TABLET PO SCH ×2 (08:55→21:18)
[2018-11-27] MEDS: URSODIOL 300 MG PO SCH ×2 (08:55→21:18)
[2018-11-27] MEDS: meTOprolol TARTRATE 25 MG (LOPRESSOR) TABLET PO SCH ×2 (08:55→21:18)
[2018-11-27] MEDS: LIDOCAINE 4% (SALONPAS) PATCH TOP SCH (08:56)
[2018-11-27] MEDS: oxyCODONE ER 20 MG (OxyCONTIN CR) TAB PO SCH (08:56)
[2018-11-27] MEDS: DILTIAZEM 120 MG (CARDIZEM CD) CAP PO SCH (08:57)
[2018-11-27] MEDS: PREGABALIN 75 MG (LYRICA) CAP PO SCH ×2 (08:57→21:19)
[2018-11-27] MEDS: TACROLIMUS 0.5 MG (PROGRAF) CAP NON-FORMULARY PO SCH ×2 (08:57→21:17)
--- NOTE | 2018-11-27 09:17 | Physical Therapy Daily Note ---
PT Daily Note-Current Subjective Pt was upright in bed and and reported that his L knee was feeling a lot better. He agreed to PT. Pain Numeric Pain Scale: 3 Location: Left Location Body Site: Knee Mental Status Patient Orientation: Person, Place, Normal For Age Transfers Therapy Code Descriptions/Definitions Functional [place] Measure: 0=Not Assessed/NA 4=Minimal Assistance 1=Total Assistance 5=Supervision or Setup 2=Maximal Assistance 6=Modified [place] 3=Moderate Assistance 7=Complete [place] Therapy Quality Codes: 6 Independent with activity with or without an assistive device 5 Patient requires set up or clean up by helper. Patient completes activity by themselves 4 Supervision or touching assist (CGA). [place] provide cues , steadying assist 3 The helper provides less than half the effort to complete the activity 2 The helper provides more than half the effort to complete the activity 1 Dependent. The helper does all the effort to complete an activity 7 Patient refused to complete or attempt activity 9 The patient did not perform the activity before the current illness or injury 88 Not attempted due to Medical conditions or safety concerns Transfers (B, C, W/C) (FIM): 4 Scootin Supine to/from Sit: 5 Sit to/from Stand: 4 Bed to/from Chair: 5 Gait Training Gait (FIM): 4 Distance (FIM): 3=368-30 ft Distance: 75' Gait Level of Assist: 4 Gait Persons Needed: 1 Gait Assistive Device: FWW Exercises Seated Therapy Exercises: Ankle pumps, Long arc quads, Hip flexion Seated Reps: 15 Assessment Current Status: Fair Progress Pt was able to transfer with little assistance except with sit to stand. Pt was self-limiting on amb and refused to go further than 75' with FWW and CGA. Pt requires max encouragement to perform any activity. Pt returned to recliner and performed LE seated ex. Pt reported that his pain was more intense now. Pt in recliner with all needs met at end of tx. PT Short Term Goals Short Term Goals Time Frame: Nov 29, 2018 Transfers (B,C,W/C) (FIM): 5 Gait Distance Comment: 10' Gait Level of Assist: 4 Gait Assistive Device: FWW PT Plan Problem List Problem List: Activity Tolerance, Functional Strength, Safety, Gait, Transfer, Bed Mobility Treatment/Plan Treatment Plan: Continue Plan of Care Treatment Plan: Bed Mobility, Concurrent Therapy, Education, Functional Activity [place], Functional Strength, Gait, Safety, Therapeutic Exercise, Transfers Treatment Duration: Nov 29, 2018 Frequency: 6 times per week Estimated Hrs Per Day: .25 hour per day (15-30') Patient and/or Family Agrees t: Yes Time/GCodes Time In: 830 Time Out: 0854 Total Billed Treatment Time: 23 Total Billed Treatment 1 visit FA x 2 23 min JUAN WELLS PT Nov 27, 2018 09:17
--- NOTE | 2018-11-27 10:14 | Cardiology Progress Note ---
Subjective Date Seen by Provider: Nov 27, 2018 Time Seen by Provider: 10:12 Subjective/Events-last exam patient is sitting in a chair, feeling better. Knee is better. Heart rate is better Review of Systems General: No Chills, No Night Sweats; Fatigue; No Malaise, No Appetite, No Other HEENT: No Head Aches, No Visual Changes, No Eye Pain, No Ear Pain, No Dysphasia , No Sinus Congestion, No Post Nasal Drip, No Sore Throat, No Other Pulmonary: Dyspnea; No Cough, No Pleuritic Chest Pain, No Other Cardiovascular: Edema; No: Chest Pain, Palpitations, Orthopnea, Paroxysmal Noc. Dyspnea, Lt Headedness, Other Objective-Cardiology Exam Last Set of Vital Signs Vital Signs 11/26/18 11/27/18 09:05 08:22 Temp 98.7 Pulse 73 Resp 20 B/P (MAP) 133/60 (84) Pulse Ox 93 O2 Delivery Room Air O2 Flow Rate 0.00 FiO2 21 Capillary Refill : Less Than 3 Seconds I&O Intake and Output 11/27/18 00:00 Intake Total 1140 ml Output Total 975 ml Balance 165 ml Intake Oral 1140 ml Output Urine Total 975 ml General: Alert, Oriented X3, Cooperative HEENT: Atraumatic, PERRLA Neck: Supple, No JVD, No Thyromegaly Lungs: Normal Air Movement, Other (bilateral rhonchi) Heart: Normal S1, Normal S2, No Murmurs, Other (irregular, borderline tachycardic) Abdomen: Normal Bowel Sounds, Soft, No Tenderness, No Hepatosplenomegaly, No Masses Extremities: No Clubbing, No Cyanosis, Other (bilateral lower extremity edema, severe pain in the left knee) Skin: No Rashes, No Breakdown, No Significant Lesion Neuro: Normal Speech, Normal Tone, Sensation Intact Psych/Mental Status: Mental Status NL, Mood NL Results Lab Laboratory Tests 11/27/18 05:50 A/P-Cardiology Admission Diagnosis Paroxysmal atrial fibrillation Sepsis Coronary artery disease Change in mental status Assessment/Plan Paroxysmal atrial fibrillation, better heart rate control, continue on current medications and monitor Gouty arthritis, knee pain, reporting improvement. Continue to monitor Acute renal failure, history of chronic renal insufficiency, renal function are slightly worse. Managed by primary care team. Ventricular tachycardia, no further episodes were reported, could be secondary to electrolyte abnormality, seen by Dr. Chapman Severe Sepsis, pneumonia, improving, managed by primary care team Coumadin toxicity, no active bleeding, Coumadin is on hold, continue to monitor Moderate size ascites, history of liver transplant, status post paracentesis, reporting improvement Immunosuppression, history of liver transplant, continue to monitor Coronary artery disease, history of CABG 4 done in 1999, followed and managed by Dr Melendez Hypertension, continue current medication monitor blood pressure Hyperlipidemia, continue to monitor at this time, Status post liver transplant in 2011 secondary to [facility] Diabetes mellitus, followed and managed by primary care physician Confusion, change in mental status, improved. Continue to monitor Clinical Quality Measures DVT/VTE Risk/Contraindication: Risk Factor Score Per Nursin RFS Level Per Nursing on Admit: 4+=Very High BLANCA TABARES MD Nov 27, 2018 10:14
--- NOTE | 2018-11-27 10:17 | Progress Note-Hospitalist ---
Subjective HPI/CC On Admission Date Seen by Provider: Nov 27, 2018 Time Seen by Provider: 10:12 Pt is a 73yoCM with a PMH of CAD s/p CABG, liver transplant on chronic immune suppressants, and a-fib who presented to the ER this morning due to nausea and vomiting. He is unable to provide me any history at this time. The only question he answer appropriately for me was his name. ALl history is obtained through records. He apparently presented to the ER due to nausea and vomiting and was found to be febrile and in Subjective/Events-last exam Pt reports feeling much better. Pain improved. Discussed possible need for transfer but he declined. Objective Exam Vital Signs Vital Signs Date Time Temp Pulse Resp B/P (MAP) Pulse Ox O2 Delivery O2 Flow Rate FiO2 11/27/18 08:22 98.7 73 20 133/60 (84) 93 Room Air 11/26/18 09:05 0.00 21 Capillary Refill : Less Than 3 Seconds General Appearance: No Apparent Distress, WD/WN Respiratory: Lungs Clear, No Accessory Muscle Use, No Respiratory Distress Cardiovascular: Regular Rate, Rhythm, No Murmur Gastrointestinal: Normal Bowel Sounds, Non Tender, Soft Extremity: Swelling Neurologic/Psychiatric: Alert, Oriented x3 Results/Procedures Lab Laboratory Tests 11/27/18 05:50 Patient resulted labs reviewed. Imaging: Reviewed Imaging Report Assessment/Plan Assessment and Plan Assess & Plan/Chief Complaint Severe sepsis Diagnosis/Problems Diagnosis/Problems (1) Acute kidney failure Status: Acute Assessment & Plan: with mild hyperkalemia Likely due to large volume paracentesis and indomethacin use Stable today Qualifiers: Acute renal failure type: unspecified Qualified Codes: N17.9 - Acute kidney failure, unspecified (2) Atrial fibrillation with RVR Status: Acute Assessment & Plan: Rate controlled Cardiology consulted INR 2.7 today Coumadin held since 11/24 last echo reveals EF of 60% in 2016 (3) Confusion Status: Resolved Assessment & Plan: Resolved Resolution Date/Time: 11/27/18 @ 10:15 (4) Severe sepsis Status: Resolved Assessment & Plan: Now off antibiotics Resolution Date/Time: 11/27/18 @ 10:14 (5) Supratherapeutic INR Status: Acute Assessment & Plan: Hold home warfarin INR >12, treated as above (6) CAD (coronary artery disease) Status: Chronic Assessment & Plan: Echo as above Cardiology consulted, appreciate recs Qualifiers: Coronary Disease-Associated Artery/Lesion type: bypass graft [place] vs. transplanted heart: [place] heart Associated angina: without angina Qualified Codes: I25.810 - Atherosclerosis of coronary artery bypass graft(s) without angina pectoris (7) Immunosuppression Status: Acute Assessment & Plan: Continue home meds due to liver transplant from [facility] Clinical Quality Measures DVT/VTE Risk/Contraindication: Risk Factor Score Per Nursin RFS Level Per Nursing on Admit: 4+=Very High ARIE DELGADO MD Nov 27, 2018 10:17
[2018-11-27 12:00] VITALS: BP 128/62
[2018-11-27 16:00] VITALS: BP 119/56
--- NOTE | 2018-11-27 16:20 | Occupational Ther Daily Note ---
OT Current Status-Daily Note Subjective Pt sitting in recliner in his room, Pt stated, Madi doing good . Pt"s says he is doing good today." Pain Numeric Pain Scale: 4 Location: Left Location Body Site: Knee Pain Description: Acute, Sharp Mental Status/Objective Patient Orientation: Person, Place, Time Therapy Code Descriptions/Definitions Functional [place] Measure: 0=Not Assessed/NA 4=Minimal Assistance 1=Total Assistance 5=Supervision or Setup 2=Maximal Assistance 6=Modified [place] 3=Moderate Assistance 7=Complete [place] Attachments: IV ADL-Treatment Pt seen today for strengthening ex to BUE , 15 reps with 2 lbs flexion/ext of both elbow & shoulders , 20 reps with yellow theraband in all planes of motion , abdominal ex 15 reps , Eating (FIM): 7 Grooming (FIM): 5 Bathing (FIM): 0 Education OT Patient Education: Correct positioning, Instructions to caregiver Teaching Recipient: Patient, Family Teaching Methods: Demonstration, Discussion Response to Teaching: Verbalize Understanding, Return Demonstration OT Short Term Goals Short Term Goals Time Frame: Dec 07, 2018 Eating(FIM): 6 Grooming(FIM): 6 Bathing(FIM): 4 Upper Body Dressing(FIM): 4 Lower Body Dressing(FIM): 4 Toileting(FIM): 6 Transfers (B,C,W/C) (FIM): 5 Toilet/Commode Transfer(FIM): 5 Shower Transfer(FIM): 4 1=Demonstrate adherence to instructed precautions during ADL tasks. 2=Patient will verbalize/demonstrate understanding of assistive devices/ modifications for ADL. 3=Patient will improve strength/tolerance for activity to enable patient to perform ADL's. OT High Speed Printer Operator Goals High Speed Printer Operator Goals Time Frame: Dec 21, 2018 (12/21/2017) Eating (FIM): 7 Grooming(FIM): 7 Bathing(FIM): 6 Bathing Location: L Arm, R Arm, L Upper Leg, R Upper Leg, L Lower Leg ( including foot), R Lower Leg (including foot), Chest, Abdomen, Buttocks, Perineal Area Upper Body Dressing(FIM): 6 Lower Body Dressing(FIM): 6 Toileting(FIM): 6 Transfers (B,C,W/C) (FIM): 6 Toilet/Commode Transfer(FIM): 6 Shower Transfer(FIM): 6 Additional Goals: 1-Demonstrate ADL Tasks, 2-Verbalize Understanding, 3- ImproveStrength/[place] 1=Demonstrate adherence to instructed precautions during ADL tasks. 2=Patient will verbalize/demonstrate understanding of assistive devices/ modifications for ADL. 3=Patient will improve strength/tolerance for activity to enable patient to perform ADL's. OT Education/Plan Problem List/Assessment Assessment: Decreased Activ Tolerance, Decreased Safety Aware, Decreased UE Strength, Dependent Transfers, Impaired Bed Mobility, Impaired Self-Care Skills Discharge Recommendations Plan/Recommendations: Continue POC Therapy D/C Recommendations: Home w/ Family Support Equpiment Recommendations-D/C: Extended Shower Sprayer, Food Order Expediter, Sock Aide, [place] Barriers to Progress Pain in Left knee due to Gout & Obesity. Patient/Family Goals To return home with Independently. Treatment Plan/Plan of Care Treatment,Training & Education: Yes Patient would benefit from OT for education, treatment and training to promote independence in ADL's, mobility, safety and/or upper extremity function for ADL' s. Plan of Care: ADL Retraining, Caregiver Training, Functional Mobility, UE Funct Exercise/Act Treatment Duration: Dec 21, 2018 Frequency: 5 times per week Estimated Hrs Per Day: .25 hour per day Agreement: Yes Rehab Potential: Fair Time/GCodes Start Time: 15:00 Stop Time: 15:20 Total Time Billed (hr/min): 20 Billed Treatment Time 1, Ex 20 min URIEL CARRANZA OT Nov 27, 2018 16:20
--- NOTE | 2018-11-27 16:44 | Cardiology Progress Note ---
Cardiology SOAP Progress Note Subjective: No significant cardiac symptoms. Objective: I&O/Vital Signs 11/27/18 11/27/18 11/27/18 11/27/18 07:00 08:05 08:22 09:00 Temp 98.7 Pulse 66 73 Resp 20 B/P (MAP) 133/60 (84) Pulse Ox 94 93 O2 Delivery Room Air Room Air Room Air 11/27/18 11/27/18 12:00 13:00 Temp 98.0 Pulse 76 75 Resp 20 B/P (MAP) 128/62 (84) Pulse Ox 93 O2 Delivery Room Air 11/27/18 00:00 Intake Total 1140 ml Output Total 975 ml Balance 165 ml Weight (Pounds): 257 Weight (Ounces): 6.0 Weight (Calculated Kilograms): 116.164459 Constitutional: appears stated age, AAO x 3, apparent distress, well-developed , well-nourished Respiratory: No accessory muscle use; chest is bilaterally symmetric, lungs clear to auscultation Cardiovascular: irregularly irregular, S1 and S2, systolic murmur (soft MAHSA at card base) Gastrointestional: No tender; soft; No guarding, No rebound; audible bowel sounds Extremities: other (mild bilat leg edema); No clubbing, No cyanosis Neurologic/Psychiatric: alert, oriented x 3, grossly intact, power is 5/5 both on sides Skin: warm/dry; No cyanosis, No cool; pallor; No rash, No rash on exposed areas , No ulcerations on exposed areas Results/Procedures: Labs Laboratory Tests 11/26/18 20:45: Glucometer 241H 11/27/18 05:50: White Blood Count 7.0, Red Blood Count 4.31L, Hemoglobin 11.3L, Hematocrit 35L, Mean Corpuscular Volume 82, Mean Corpuscular Hemoglobin 26, Mean Corpuscular Hemoglobin Concent 32, Red Cell Distribution Width 18.4H, Platelet Count 204, Mean Platelet Volume 10.5H, Neutrophils (%) (Auto) 86H, Lymphocytes (%) (Auto) 8L, Monocytes (%) (Auto) 7, Eosinophils (%) (Auto) 0, Basophils (%) (Auto) 0, Neutrophils # (Auto) 6.0, Lymphocytes # (Auto) 0.5L, Monocytes # (Auto) 0.5, Eosinophils # (Auto) 0.0, Basophils # (Auto) 0.0, Prothrombin Time 29.1H, INR Comment 2.7H, Sodium Level 137, Potassium Level 5.2H, Chloride Level 99, Carbon Dioxide Level 26, Anion Gap 12, Blood Urea Nitrogen 58H, Creatinine 2.38H, Estimat Glomerular Filtration Rate 27, BUN/Creatinine Ratio 24, Glucose Level 268H, Calcium Level 9.2, Phosphorus Level 3.6, Magnesium Level 1.8 11/27/18 05:56: Glucometer 253H 11/27/18 10:47: Glucometer 333H 11/27/18 15:06: Glucometer 301H Microbiology 11/23/18 Blood Culture - Preliminary, Resulted No growth 11/22/18 Gram Stain - Final, Resulted 11/22/18 Body Fluid Culture - Final, Resulted No growth 11/22/18 Fungal Culture 1 - Preliminary, Resulted 11/18/18 MRSA Screen - Final, Complete MRSA not isolated 11/18/18 Urine Culture - Final, Complete See Report A/P: Assessment/Dx: Chronic liver disease, status post liver transplant, Immunosuppressive therapy, CAD/CABG, Paroxysmal atrial fibrillation with rapid ventricular rate, Chronic kidney disease, Ascites, Wide-complex tachycardia Plan: Atrial fibrillation with rapid ventricular rate: Resolved. Still in atrial fibrillation with controlled ventricular rate. On metoprolol by mouth. Wide-complex tachycardia on telemetry, could be nonsustained VT due to significant electrolyte abnormalities. No further significant ventricular ectopy in the last 8 days. Supratherapeutic INR, hold warfarin. Concerned about decompensated liver disease. I will hold warfarin for now. CAD/CABG: Defer to Dr. Yadav. Likely decompensated liver disease with ascites, defer to the primary team. Improved respiratory distress. Thank you for your consultation. Please call me if you have any questions. Sumaya Chapman MD, FACP, FACC, FSCAI, FHRS, CCDS Interventional Cardiology Cardiac Electrophysiology Vascular Medicine and Endovascular Interventions Alysa CHAPMAN MD Nov 27, 2018 4:44 pm
[2018-11-27 20:00] VITALS: BP 123/59
[2018-11-27] MEDS: ALLOPURINOL 100 MG (ZYLOPRIM) TAB PO SCH (21:18)
[2018-11-27] MEDS: oxyCODONE ER 10 MG (OxyCONTIN CR) TAB PO SCH (21:19)
[2018-11-28] VITALS: BP 134/70
[2018-11-28 04:00] VITALS: BP 126/54
[2018-11-28 06:09] LABS: BASOPHILS % (AUTO) 0 % (0-10); EOSINOPHILS % (AUTO) 0 % (0-10); HEMATOCRIT 36 % (40-54); LYMPHOCYTES # (AUTO) 0.6 X 10^3 (1.0-4.0); LYMPHOCYTES % (AUTO) 7 % (12-44); MEAN CORPUSCULAR HEMOGLOBIN 26 PG (25-34); MEAN CORPUSCULAR HGB CONC 31 G/DL (32-36); MEAN CORPUSCULAR VOLUME 82 FL (80-99); MEAN PLATELET VOLUME 10.7 FL (7.4-10.4); MONOCYTES # (AUTO) 0.6 X 10^3 (0.0-1.0); MONOCYTES % (AUTO) 8 % (0-12); NEUTROPHILS # (AUTO) 7.1 X 10^3 (1.8-7.8); NEUTROPHILS % (AUTO) 85 % (42-75); PLATELET COUNT 224 10^3/uL (130-400); RED CELL DISTRIBUTION WIDTH 18.5 % (10.0-14.5); WHITE BLOOD COUNT 8.3 10^3/uL (4.3-11.0)
[2018-11-28 06:32] LABS: CALCIUM 9.5 MG/DL (8.5-10.1); CREATININE SERUM 2.21 MG/DL (0.60-1.30); MAGNESIUM 1.7 MG/DL (1.8-2.4); POTASSIUM 5.1 MMOL/L (3.6-5.0)
[2018-11-28] MEDS: FUROSEMIDE 40 MG (LASIX) TAB PO SCH (06:47)
[2018-11-28] MEDS: predniSONE 20 MG TAB PO SCH (06:47)
[2018-11-28] MEDS: ALBUMIN 25% 25 GM/100 ML 100 ML IV SCH (06:47)
[2018-11-28 06:48] LABS: LYMPHOCYTES % (MANUAL) 4 %; MONOCYTES % (MANUAL) 7 %; NEUTROPHILS % (MANUAL) 89 %; POIKILOCYTOSIS SLIGHT
[2018-11-28 06:49] LABS: ANISOCYTOSIS SLIGHT; ELLIPT/OVALOCYTES SLIGHT; MICROCYTOSIS SLIGHT
[2018-11-28] MEDS: inSUlin ASPART (NovoLOG) 1 UNIT/0.01 ML (CHARGE PER UNIT) SC SCH ×2 (06:49→11:22)
[2018-11-28] MEDS: inSUlin ASPART (NovoLOG) 1 UNIT/0.01 ML (CHARGE PER UNIT) SQ SCH ×2 (06:49→11:22)
[2018-11-28 07:09] LABS: INR 2.3 (0.8-1.4); PROTHROMBIN TIME PATIENT 25.2 SEC (12.2-14.7)
[2018-11-28 08:00] VITALS: BP 142/62
--- NOTE | 2018-11-28 08:06 | Cardiology Progress Note ---
Subjective Date Seen by Provider: Nov 28, 2018 Time Seen by Provider: 08:03 Subjective/Events-last exam Patient is in bed, feeling better, no new complaint Review of Systems General: No Chills, No Night Sweats, No Fatigue, No Malaise, No Appetite, No Other HEENT: No Head Aches, No Visual Changes, No Eye Pain, No Ear Pain, No Dysphasia , No Sinus Congestion, No Post Nasal Drip, No Sore Throat, No Other Pulmonary: No Dyspnea, No Cough, No Pleuritic Chest Pain, No Other Cardiovascular: Edema; No: Chest Pain, Palpitations, Orthopnea, Paroxysmal Noc. Dyspnea, Lt Headedness, Other Objective-Cardiology Exam Last Set of Vital Signs Vital Signs 11/26/18 11/28/18 09:05 04:00 Temp 97.7 Pulse 74 Resp 24 B/P (MAP) 126/54 (78) Pulse Ox 96 O2 Delivery Room Air O2 Flow Rate 0.00 FiO2 21 Capillary Refill : Less Than 3 Seconds I&O Intake and Output 11/28/18 00:00 Intake Total 2750 ml Output Total 2450 ml Balance 300 ml Intake Oral 2700 ml IV Total 50 ml Output Urine Total 2450 ml General: Alert, Oriented X3, Cooperative HEENT: Atraumatic, PERRLA Neck: Supple, No JVD, No Thyromegaly Lungs: Normal Air Movement, Other (bilateral rhonchi) Heart: Normal S1, Normal S2, No Murmurs, Other (irregular, borderline tachycardic) Abdomen: Normal Bowel Sounds, Soft, No Tenderness, No Hepatosplenomegaly, No Masses Extremities: No Clubbing, No Cyanosis, Other (bilateral lower extremity edema, severe pain in the left knee) Skin: No Rashes, No Breakdown, No Significant Lesion Neuro: Normal Speech, Normal Tone, Sensation Intact Psych/Mental Status: Mental Status NL, Mood NL Results Lab Laboratory Tests 11/28/18 05:58 A/P-Cardiology Admission Diagnosis Paroxysmal atrial fibrillation Sepsis Coronary artery disease Change in mental status Assessment/Plan Paroxysmal atrial fibrillation, better heart rate control, continue on current medications and monitor Gouty arthritis, knee pain, reporting improvement. Continue to monitor Acute renal failure, history of chronic renal insufficiency, managed by primary care team Ventricular tachycardia, no further episodes were reported, could be secondary to electrolyte abnormality, seen by Dr. 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 Continue to monitor Clinical Quality Measures DVT/VTE Risk/Contraindication: Risk Factor Score Per Nursin RFS Level Per Nursing on Admit: 4+=Very High BLANCA TABARES MD Nov 28, 2018 08:06
[2018-11-28] MEDS: DOCUSATE SODIUM 100 MG (COLACE) CAP PO SCH (08:37)
[2018-11-28] MEDS: rOPINIRole 1 MG (REQUIP) TABLET PO SCH (08:37)
[2018-11-28] MEDS: PREGABALIN 75 MG (LYRICA) CAP PO SCH (08:37)
[2018-11-28] MEDS: DILTIAZEM 120 MG (CARDIZEM CD) CAP PO SCH (08:37)
[2018-11-28] MEDS: oxyCODONE ER 20 MG (OxyCONTIN CR) TAB PO SCH (08:37)
[2018-11-28] MEDS: PANTOPRAZOLE 40 MG (PROTONIX) TAB PO SCH (08:37)
[2018-11-28] MEDS: TACROLIMUS 0.5 MG (PROGRAF) CAP NON-FORMULARY PO SCH (08:38)
[2018-11-28] MEDS: meTOprolol TARTRATE 25 MG (LOPRESSOR) TABLET PO SCH (08:38)
[2018-11-28] MEDS: URSODIOL 300 MG PO SCH (08:39)
[2018-11-28] MEDS: LIDOCAINE 4% (SALONPAS) PATCH TOP SCH (08:41)
[2018-11-28] MEDS: RT-ALBUTEROL/IPRATROPIUM 3 ML (DUONEB) VIAL INH SCH (09:10)
--- NOTE | 2018-11-28 09:17 | Diagnostic Imaging Report ---
INDICATION: Sepsis and pneumonia. COMPARISON: 11/27/2018. FINDINGS: Enlargement of the cardiac silhouette is unchanged. Bilateral infiltrates, most notably in the right upper lobe, show mild progression. The sternal wires are midline. No effusion or pneumothorax. IMPRESSION: Stable cardiomegaly; however, increased infiltrates, most notably in the right upper lobe. Dictated by: Dictated on workstation # [id number]
--- NOTE | 2018-11-28 10:20 | Cardiology Progress Note ---
Cardiology SOAP Progress Note Subjective: No palpitations. Objective: I&O/Vital Signs 11/28/18 11/28/18 11/28/18 11/28/18 01:00 04:00 07:06 08:00 Temp 97.7 96.5 Pulse 80 74 96 83 Resp 24 20 B/P (MAP) 126/54 (78) 142/62 (88) Pulse Ox 96 94 O2 Delivery Room Air Room Air 11/28/18 11/28/18 09:00 09:10 Pulse Ox 92 O2 Delivery Room Air Room Air 11/28/18 00:00 Intake Total 2550 ml Output Total 1650 ml Balance 900 ml Weight (Pounds): 250 Weight (Ounces): 4.0 Weight (Calculated Kilograms): [id number] Constitutional: appears stated age, AAO x 3, apparent distress, well-developed , well-nourished Respiratory: No accessory muscle use; chest is bilaterally symmetric, lungs clear to auscultation Cardiovascular: irregularly irregular, S1 and S2, systolic murmur (soft MAHSA at card base) Gastrointestional: No tender; soft; No guarding, No rebound; audible bowel sounds Extremities: other (mild bilat leg edema); No clubbing, No cyanosis Neurologic/Psychiatric: alert, oriented x 3, grossly intact, power is 5/5 both on sides Skin: warm/dry; No cyanosis, No cool; pallor; No rash, No rash on exposed areas , No ulcerations on exposed areas Results/Procedures: Labs Laboratory Tests 11/27/18 15:06: Glucometer 301H 11/27/18 16:51: Glucometer 326H 11/27/18 20:57: Glucometer 237H 11/27/18 22:09: Glucometer 334H 11/28/18 05:11: Glucometer 231H 11/28/18 05:58: White Blood Count 8.3, Red Blood Count 4.31L, Hemoglobin 11.0L, Hematocrit 36L, Mean Corpuscular Volume 82, Mean Corpuscular Hemoglobin 26, Mean Corpuscular Hemoglobin Concent 31L, Red Cell Distribution Width 18.5H, Platelet Count 224, Mean Platelet Volume 10.7H, Neutrophils (%) (Auto) 85H, Lymphocytes (%) (Auto) 7L, Monocytes (%) (Auto) 8, Eosinophils (%) (Auto) 0, Basophils (%) (Auto) 0, Neutrophils # (Auto) 7.1, Lymphocytes # (Auto) 0.6L, Monocytes # (Auto) 0.6, Eosinophils # (Auto) 0.0, Basophils # (Auto) 0.0, Neutrophils % (Manual) 89, Lymphocytes % (Manual) 4, Monocytes % (Manual) 7, Poikilocytosis SLIGHT, Anisocytosis SLIGHT, Microcytosis SLIGHT, Elliptocytes SLIGHT, Sodium Level 137 , Potassium Level 5.1H, Chloride Level 98, Carbon Dioxide Level 27, Anion Gap 12 , Blood Urea Nitrogen 62H, Creatinine 2.21H, Estimat Glomerular Filtration Rate 29, BUN/Creatinine Ratio 28, Glucose Level 217H, Calcium Level 9.5, Phosphorus Level 3.2, Magnesium Level 1.7L 11/28/18 06:43: Prothrombin Time 25.2H, INR Comment 2.3H 11/28/18 11:13: Glucometer 296H Microbiology 11/23/18 Blood Culture - Preliminary, Resulted No growth 11/22/18 Gram Stain - Final, Resulted 11/22/18 Body Fluid Culture - Final, Resulted No growth 11/22/18 Fungal Culture 1 - Preliminary, Resulted 11/18/18 MRSA Screen - Final, Complete MRSA not isolated 11/18/18 Urine Culture - Final, Complete See Report A/P: Assessment/Dx: Chronic liver disease, status post liver transplant, Immunosuppressive therapy, CAD/CABG, Paroxysmal atrial fibrillation with rapid ventricular rate, Chronic kidney disease, Ascites, Wide-complex tachycardia Plan: Atrial fibrillation with rapid ventricular rate: Resolved. Still in atrial fibrillation with controlled ventricular rate. On metoprolol by mouth. Wide-complex tachycardia on telemetry, could be nonsustained VT due to significant electrolyte abnormalities. No further significant ventricular ectopy in the last 8 days. Supratherapeutic INR, hold warfarin. Concerned about decompensated liver disease. I will hold warfarin for now, I will recommend that he continues to hold warfarin until he sees his outbound sales agent and liver specialist to make a decision. CAD/CABG: Defer to Dr. Yadav. Likely decompensated liver disease with ascites, defer to the primary team. Improved respiratory distress. Thank you for your consultation. Please call me if you have any questions. Sumaya Chapman MD, FACP, FACC, FSCAI, FHRS, CCDS Interventional Cardiology Cardiac Electrophysiology Vascular Medicine and Endovascular Interventions Alysa CHAPMAN MD Nov 28, 2018 10:20 am
--- NOTE | 2018-11-28 12:02 | Physical Therapy Daily Note ---
PT Daily Note-Current Subjective Pt was upright in recliner talking with and nurse. He just received an insulin shot by nurse and agreed to PT. Pt reports that he is being dismissed today or tomorrow. Pain Numeric Pain Scale: 3 Location: Left Location Body Site: Knee (Gout) Mental Status Patient Orientation: Normal For Age Transfers Therapy Code Descriptions/Definitions Functional [place] Measure: 0=Not Assessed/NA 4=Minimal Assistance 1=Total Assistance 5=Supervision or Setup 2=Maximal Assistance 6=Modified [place] 3=Moderate Assistance 7=Complete [place] Therapy Quality Codes: 6 Independent with activity with or without an assistive device 5 Patient requires set up or clean up by helper. Patient completes activity by themselves 4 Supervision or touching assist (CGA). [place] provide cues , steadying assist 3 The helper provides less than half the effort to complete the activity 2 The helper provides more than half the effort to complete the activity 1 Dependent. The helper does all the effort to complete an activity 7 Patient refused to complete or attempt activity 9 The patient did not perform the activity before the current illness or injury 88 Not attempted due to Medical conditions or safety concerns Transfers (B, C, W/C) (FIM): 5 Sit to/from Stand: 5 Gait Training Gait (FIM): 6 Distance (FIM): 3=150 ft Distance: >200' Gait Level of Assist: 6 Gait Persons Needed: 1 Gait Assistive Device: FWW Exercises Seated Therapy Exercises: Long arc quads, Hip flexion Seated Reps: 15 Assessment Current Status: Fair Progress Pt was able to sit<>stand with SBA to FWW. Pt amb >200' with FWW. Pt returned to recliner and was able to perform some seated LE ex with all needs met. reports that pt will be using FWW at home. PT Short Term Goals Short Term Goals Time Frame: Nov 29, 2018 Transfers (B,C,W/C) (FIM): 5 Gait Distance Comment: 10' Gait Level of Assist: 4 Gait Assistive Device: FWW PT Plan Problem List Problem List: Activity Tolerance, Functional Strength, Safety, Gait, Transfer, Bed Mobility Treatment/Plan Treatment Plan: Continue Plan of Care, Discontinue PT Treatment Plan: Bed Mobility, Concurrent Therapy, Education, Functional Activity [place], Functional Strength, Gait, Safety, Therapeutic Exercise, Transfers Treatment Duration: Nov 29, 2018 Frequency: 6 times per week Estimated Hrs Per Day: .25 hour per day (15-30') Patient and/or Family Agrees t: Yes Discharge Recommendations Therapy D/C Recommendations: Home w/ Family Support Equpiment Recommendations-D/C: Front Wheeled Walker Time/GCodes Time In: 1115 Time Out: 1130 Total Billed Treatment Time: 15 Total Billed Treatment 1 visit FA 15 min JUAN WELLS PT Nov 28, 2018 12:02
[2018-11-28] MEDS ORDERED: FURO40TA4 PO (12:55)
[2018-11-28] MEDS ORDERED: WARF2TAB PO (12:55)
[2018-11-28] MEDS ORDERED: METO-333 PO (12:55)
[2018-11-28] MEDS ORDERED: DILT120C94 PO (12:55)
--- NOTE | 2018-11-28 13:02 | Discharge Inst-Simple/Standard ---
Discharge Inst-Standard Discharge Medications New, Converted or Re-Newed RX: Transmitted to Pharmacy Patient Instructions/Follow Up Plan of Care/Instructions/FU: Please continue to take your medications as written. Please follow up with Dr Sanders, Dr Chapman, and Dr Li to follow up this hospital stay. Please also see your specialists at [facility]. It is important for you to have your INR checked this week to make sure your levels stay in a therpeutic range. Activity as Tolerated: Yes Discharge Diet: Cardiac Diet, Coumadin Patient Diet Return to The Hospital For: Shortness of breath, chest pain, palpitations, confusion, fever, dark stools, if you feel you are getting worse. ARIE DELGADO MD Nov 28, 2018 13:02
--- NOTE | 2018-11-28 13:04 | Discharge Summary-Hospitalist ---
Diagnosis/Chief Complaint Date of Admission Nov 18, 2018 at 06:30 Date of Discharge Discharge Date: Nov 28, 2018 Admission Diagnosis Severe Sepsis Discharge Diagnosis (1) Acute kidney failure Status: Acute Assessment & Plan: with mild hyperkalemia Likely due to large volume paracentesis and indomethacin use Stable today (2) Atrial fibrillation with RVR Status: Acute Assessment & Plan: Rate controlled Cardiology consulted INR 2.7 today Coumadin held since 11/24 last echo reveals EF of 60% in 2016 (3) Confusion Status: Resolved Assessment & Plan: Resolved (4) Severe sepsis Status: Resolved Assessment & Plan: Now off antibiotics (5) Supratherapeutic INR Status: Acute Assessment & Plan: Hold home warfarin INR >12, treated as above (6) CAD (coronary artery disease) Status: Chronic Assessment & Plan: Echo as above Cardiology consulted, appreciate recs (7) Immunosuppression Status: Acute Assessment & Plan: Continue home meds due to liver transplant from [facility]O Discharge Summary Procedures/Consulations Dr Noriega Pularmen Yadav- Cardiology Dr Chapman- EP Discharge Physical Exam Allergies: Coded Allergies: meperidine (Verified Allergy, Unknown, 11/18/18) morphine (Verified Allergy, Unknown, 11/18/18) Vitals & I&Os Vital Signs Date Time Temp Pulse Resp B/P (MAP) Pulse Ox O2 Delivery O2 Flow Rate FiO2 11/28/18 17:00 83 20 142/62 94 Room Air 11/28/18 08:00 96.5 11/26/18 09:05 0.00 21 General Appearance: No Apparent Distress, WD/WN Neurologic/Psychiatric: Alert, Oriented x3 Hospital Course Pt was admitted for severe sepsis from pneumonia. He responded well to treatment for his infection but had a longer, more complicated stay due to his chronic comorbidities. He has a history of PRADO s/p liver transplant and ultimately needed a paracentesis during this admission. Following the large volume paracentesis his renal function started to worsen. This was in conjunction with indomethacin use for his pain from his gout. Risks and benefits of indomethacin use where discussed with patient and he insisted on continued indomethacin use due to the pain. His creatinine eventually peaked at 3.4 and slowly trended down with albumin use in conjunction with lasix. On day of discharge his creatinine had trended down and he felt well enough for discharge. He was still receiving albumin and I discussed with him my medical opinion that he was not medically optimized for discharge. We discussed the risks of worsening renal function and he elected to discharge home AMA. Return precautions were discussed with both the patient and his who verbalized understanding. Of note his INR erratic throughout this admission. His anticoagulation was held and he was given FFP for correction when INR reached 12. I discussed this with Dr Yadav who agreed at discharge he needed anticoagulation and so his warfarin was resumed for home. Patient states he will follow up with his accountant controller in [place] tomorrow to have his INR checked. Labs (last 24 hrs) Microbiology 11/23/18 Blood Culture - Final, Complete No growth 11/22/18 Gram Stain - Final, Resulted 11/22/18 Body Fluid Culture - Final, Resulted No growth 11/22/18 Fungal Culture 1 - Preliminary, Resulted 11/18/18 MRSA Screen - Final, Complete MRSA not isolated 11/18/18 Urine Culture - Final, Complete See Report Patient resulted labs reviewed. Pending Labs Imaging: Reviewed Imaging Report Discussion & Recommendations Discharge Planning: >30 minutes discharge planning Discharge Home Medications: Active Scripts Active Coumadin (Warfarin Sodium) 2 Mg Tablet 4 Mg PO DAILY@1800 Furosemide 40 Mg Tablet 80 Mg PO DAILY@07,17 Metoprolol Tartrate 25 Mg Tablet 25 Mg PO BID Diltiazem 24Hr Cd (Diltiazem HCl) 120 Mg Cap.er.24h 120 Mg PO DAILY Reported Tacrolimus 0.5 Mg Capsule 0.5 Mg PO BID Triamcinolone Acetonide 0.5% Cream (Triamcinolone Acetonide) 15 Gm Cream..g. TP DAILY PRN Lidocaine (Lidocaine HCl) 35 Gm Oint TP TID Voltaren (Diclofenac Sodium) 100 Gm Gel..gram. 4 Gm TP BID PRN Omeprazole 40 Mg Capsule.dr 40 Mg PO DAILY Tylenol Extra Strength (Acetaminophen) 500 Mg Tablet 500-1,000 Mg PO Q4H PRN Colace (Docusate Sodium) 100 Mg Capsule 100 Mg PO DAILY Oxycodone HCl 10 Mg Tablet 30 Mg PO HS TAKES 3 (10MG) TABLETS Ropinirole HCl 1 Mg Tablet 1 Mg PO BID Oxycodone HCl 10 Mg Tablet 20 Mg PO DAILY TAKES 2 (10MG) TABLETS Lyrica (Pregabalin) 150 Mg Capsule 150 Mg PO BID Levemir Flextouch (Insulin Detemir) 100 Unit/1 Ml Insuln.pen 16 Unit SQ HS Levemir Flextouch (Insulin Detemir) 100 Unit/1 Ml Insuln.pen 36 Unit SQ 0800 Novolog (Insulin Aspart) 100 Unit/1 Ml Susp SQ AC 13 UNITS PLUS SLIDING SCALE Allopurinol 100 Mg Tablet 100 Mg PO HS Ursodiol 300 Mg Capsule 300 Mg PO BID Instructions to patient/family Please see electronic discharge instructions given to patient. Clinical Quality Measures DVT/VTE Risk/Contraindication: Risk Factor Score Per Nursin RFS Level Per Nursing on Admit: 4+=Very High Problem Qualifiers (1) Acute kidney failure: Acute renal failure type: unspecified Qualified Codes: N17.9 - Acute kidney failure, unspecified (2) CAD (coronary artery disease): Coronary Disease-Associated Artery/Lesion type: bypass graft [place] vs. transplanted heart: [place] heart Associated angina: without angina Qualified Codes: I25.810 - Atherosclerosis of coronary artery bypass graft(s) without angina pectoris ARIE DELGADO MD Nov 28, 2018 13:04
--- NOTE | 2018-11-28 16:20 | Occupational Ther Daily Note ---
OT Current Status-Daily Note Subjective Pt's stated , Pt did very good job, he trasfered himself from bed to recliner. Pt said, dont give me hard time. I walked this morning with therapist. " Pain Numeric Pain Scale: 2 Location: Left Location Body Site: Knee Pain Description: Ache, Dull Mental Status/Objective Patient Orientation: Person, Place, Time, Eyes Open Therapy Code Descriptions/Definitions Functional [place] Measure: 0=Not Assessed/NA 4=Minimal Assistance 1=Total Assistance 5=Supervision or Setup 2=Maximal Assistance 6=Modified [place] 3=Moderate Assistance 7=Complete [place] ADL-Treatment Pt participated in func transfer training, func bed mobility, func ambulation with w/walker & strengthening ex to BUE. Pt completed 30 reps x 2sets x 3 lbs wt with flexion/ext of both elbows & shoulders, 30 reps with red theraband in all planes of motion to increase strength, endurance, activity tolerance , Pt func. ambulate with w/walker & gait-belt x 160 feet. c/o minimal pain in Left knee. Eating (FIM): 7 Grooming (FIM): 4 Bathing (FIM): 0 Upper Body (FIM): 4 Lower Body Dressing (FIM): 2 Toileting (FIM): 0 Transfers (B, C, W/C) (FIM): 4 Toilet/Commode Transfer (FIM): 4 Tub Transfer(FIM): 0 Shower Transfer(FIM): 0 Education OT Patient Education: Correct positioning, Instructions to caregiver, Safety issues, Transfer techniques Teaching Recipient: Patient, Family Teaching Methods: Demonstration, Discussion Response to Teaching: Verbalize Understanding, Return Demonstration OT Short Term Goals Short Term Goals Time Frame: Dec 07, 2018 Eating(FIM): 6 Grooming(FIM): 6 Bathing(FIM): 4 Upper Body Dressing(FIM): 4 Lower Body Dressing(FIM): 4 Toileting(FIM): 6 Transfers (B,C,W/C) (FIM): 5 Toilet/Commode Transfer(FIM): 5 Shower Transfer(FIM): 4 1=Demonstrate adherence to instructed precautions during ADL tasks. 2=Patient will verbalize/demonstrate understanding of assistive devices/ modifications for ADL. 3=Patient will improve strength/tolerance for activity to enable patient to perform ADL's. OT Hyperbaric Technician Goals Shelter Goals Time Frame: Dec 21, 2018 (12/21/2017) Eating (FIM): 7 Grooming(FIM): 7 Bathing(FIM): 6 Bathing Location: L Arm, R Arm, L Upper Leg, R Upper Leg, L Lower Leg ( including foot), R Lower Leg (including foot), Chest, Abdomen, Buttocks, Perineal Area Upper Body Dressing(FIM): 6 Lower Body Dressing(FIM): 6 Toileting(FIM): 6 Transfers (B,C,W/C) (FIM): 6 Toilet/Commode Transfer(FIM): 6 Shower Transfer(FIM): 6 Additional Goals: 1-Demonstrate ADL Tasks, 2-Verbalize Understanding, 3- ImproveStrength/[place] 1=Demonstrate adherence to instructed precautions during ADL tasks. 2=Patient will verbalize/demonstrate understanding of assistive devices/ modifications for ADL. 3=Patient will improve strength/tolerance for activity to enable patient to perform ADL's. OT Education/Plan Problem List/Assessment Assessment: Decreased Activ Tolerance, Decreased Safety Aware, Decreased UE Strength, Impaired Bed Mobility, Impaired Funct Balance, Impaired Self-Care Skills Discharge Recommendations Plan/Recommendations: Continue POC Therapy D/C Recommendations: Home w/ Family Support, Occupational Therapy Home Care Equpiment Recommendations-D/C: Grout Machine Tender Treatment Plan/Plan of Care Patient would benefit from OT for education, treatment and training to promote independence in ADL's, mobility, safety and/or upper extremity function for ADL' s. Plan of Care: ADL Retraining, Caregiver Training, Functional Mobility, UE Funct Exercise/Act Treatment Duration: Dec 21, 2018 Frequency: 5 times per week Estimated Hrs Per Day: .25 hour per day Agreement: Yes Rehab Potential: Good Time/GCodes Start Time: 15:45 Stop Time: 16:20 Total Time Billed (hr/min): 35 Billed Treatment Time 1, Ex 35 Total 35 minutes URIEL CARRANZA OT Nov 28, 2018 16:20
[2018-11-28 17:00] VITALS: BP 142/62
--- NOTE | 2018-11-28 17:00 | NUR ---
Patient left AMA. DAVID CHONG demonstrates understanding of discharge instructions and accurately returns instructions upon questioning. Copy of Post-Discharge Instructions given to patient . DAVID CHONG is able to manage continuing needs after discharge. Patients belongings and home medications returned to patient. Patient discharged from [facility]- on 11/28/18 at 1700. DAVID CHONG left floor via wheelchair, accompanied by this RN to a private automobile.
[2018-11-28] MEDS ORDERED: warFARin 2 MG (COUMADIN) TAB PO SCH (18:00)
== END 2018-11-28 17:00 | disposition left against medical advice (07) | DRG 871 ==
LOC: EDUNIT# 05:13 → ER 05:16 → ICU 06:30 → 4TH 11-23 09:47
PROVIDERS: ADMIT Family Medicine; ATTEND Family Medicine
PROC: 0W9G3ZZ Drainage of Peritoneal Cavity, Percutaneous Approach (ICD-10-PCS; principal; 2018-11-22)
DX: A41.9 Sepsis, unspecified organism (principal); R65.20 Severe sepsis without septic shock; J18.1 Lobar pneumonia, unspecified organism; G93.41 Metabolic encephalopathy; N17.9 Acute kidney failure, unspecified; Z94.4 Liver transplant status; I25.810 Atherosclerosis of coronary artery bypass graft(s) without angina pectoris; I47.2 Ventricular tachycardia; R18.8 Other ascites; E87.2 Acidosis; M10.062 Idiopathic gout, left knee; I12.9 Hypertensive chronic kidney disease with stage 1 through stage 4 chronic kidney disease, or unspecified chronic kidney disease; N18.9 Chronic kidney disease, unspecified; I48.0 Paroxysmal atrial fibrillation; R79.1 Abnormal coagulation profile; E78.00 Pure hypercholesterolemia, unspecified; E87.5 Hyperkalemia; E11.40 Type 2 diabetes mellitus with diabetic neuropathy, unspecified; R53.81 Other malaise; R50.9 Fever, unspecified; R19.7 Diarrhea, unspecified; I95.9 Hypotension, unspecified; Z79.01 Long term (current) use of anticoagulants; Z95.1 Presence of aortocoronary bypass graft; Z87.891 Personal history of nicotine dependence; Z79.4 Long term (current) use of insulin; Z95.5 Presence of coronary angioplasty implant and graft; Z88.5 Allergy status to narcotic agent
CPT/HCPCS: 36415; 36569; 49083; 70450; 71045; 74019; 74176; 76705; 76937; 80048; 80053; 80197; 80202; 81000; 82140; 82150; 82805; 82945; 82962; 83605; 83615; 83690; 83735; 83986; 84100; 84157; 84484; 84550; 85007; 85025; 85027; 85610; 85730; 86900; 86901; 87040; 87070; 87081; 87088; 87101; 87205; 87449; 87804; 87899; 89051; 93005; 93306; 94640; 94660; 94760; 96361; 96365; 96375

== ENCOUNTER → 2018-12-29 | Outpatient (CLI) | payer MEDICARE ==
[~2018-12-29] VITALS: Ht 182.9 cm; Wt 113.5 kg
[~2018-12-29] MED LIST changes: +DILT120C94 PO; +ESZO2TAB31; +LIDOCAINE 1% INJ 20 ML 20 ML VIAL ONE; +METO-333 PO; +TACR0.5C6 PO; +WARF2TAB PO; +WARF5TAB8
--- NOTE | 2018-12-29 13:21 | Operative Report ---
Operative Report Date of Procedure/Surgery Dec 29, 2018 Surgeon (s) WILLIAM BONILLA MD Senior Staff Consultant (s): N/A Post-Operative Diagnosis symptomatic ascites Procedure Performed paracentesis at the bedside Description of Procedure Anesthesia Type: Block Estimated blood loss (mL): none Specimen(s) collected/removed None Description of the Procedure Indication for the procedure: This gentleman presented with symptomatic ascites. Therefore, it was felt reasonable to perform paracentesis. Increased risk of bleeding due to anticoagulant therapy was highlighted. Description of the procedure: He underwent conventional ultrasonography confirming ascites and the area suitable for paracentesis was marked over the left lower quadrant. He was placed supine on the gurney and after adequate antiseptic perforation, local anesthesia was achieved using 1 percent lidocaine. Using the [id number] device, peritoneal cavity was entered safely, encountering ascitic fluid. It was connected to a collection bag under gravity. He tolerated the procedure reasonably well. Findings of the Procedure See op report Allergies and Home Medications Allergies Coded Allergies: meperidine (Verified Allergy, Unknown, 11/18/18) morphine (Verified Allergy, Unknown, 11/18/18) Home Medications Acetaminophen 500 Mg Tablet, 500-1,000 MG PO Q4H PRN for PAIN-MILD, (Reported) Allopurinol 100 Mg Tablet, 100 MG PO HS, (Reported) Diclofenac Sodium 100 Gm Gel..gram., 4 GM TP BID PRN for JOINT PAIN, (Reported) Diltiazem HCl 120 Mg Cap.er.24h, 120 MG PO DAILY Prescribed by: ARIE DELGADO on 11/28/18 1255 Docusate Sodium 100 Mg Capsule, 100 MG PO DAILY, (Reported) Furosemide 40 Mg Tablet, 80 MG PO DAILY@07,17 Prescribed by: ARIE DELGADO on 11/28/18 1255 Insulin Aspart 100 Unit/1 Ml Susp, SQ AC, (Reported) 13 UNITS PLUS SLIDING SCALE Insulin Detemir 100 Unit/1 Ml Insuln.pen, 36 UNIT SQ 0800, (Reported) Insulin Detemir 100 Unit/1 Ml Insuln.pen, 16 UNIT SQ HS, (Reported) Lidocaine HCl 35 Gm Oint, TP TID, (Reported) Metoprolol Tartrate 25 Mg Tablet, 25 MG PO BID Prescribed by: ARIE DELGADO on 11/28/18 1255 Omeprazole 40 Mg Capsule.dr, 40 MG PO DAILY, (Reported) Oxycodone HCl 10 Mg Tablet, 20 MG PO DAILY, (Reported) TAKES 2 (10MG) TABLETS Oxycodone HCl 10 Mg Tablet, 30 MG PO HS, (Reported) TAKES 3 (10MG) TABLETS Pregabalin 150 Mg Capsule, 150 MG PO BID, (Reported) Ropinirole HCl 1 Mg Tablet, 1 MG PO BID, (Reported) Tacrolimus 0.5 Mg Capsule, 0.5 MG PO BID, (Reported) Triamcinolone Acetonide 15 Gm Cream..g., TP DAILY PRN for NEEDED, (Reported) Ursodiol 300 Mg Capsule, 300 MG PO BID, (Reported) Warfarin Sodium 2 Mg Tablet, 4 MG PO DAILY@1800 Prescribed by: ARIE DELGADO on 11/28/18 1255 Patient Home Medication List Home Medication List Reviewed: Yes WILLIAM BONILLA MD Dec 29, 2018 13:21
[2018-12-29 13:30] VITALS: BP 104/78
[2018-12-29 14:30] VITALS: BP 123/78
[2018-12-29 16:30] VITALS: BP 103/68
[2018-12-29 17:55] VITALS: BP 107/69
[2018-12-29 18:06] VITALS: BP 104/78
== END ==
LOC: SDC 12:24
PROVIDERS: ATTEND Surgery
DX: R18.8 Other ascites (principal); Z88.5 Allergy status to narcotic agent; Z79.4 Long term (current) use of insulin; Z79.01 Long term (current) use of anticoagulants; Z79.899 Other long term (current) drug therapy
CPT/HCPCS: 49082

== ENCOUNTER → 2018-12-29 | Outpatient (CLI) | payer MEDICARE ==
[~2018-12-29] MED LIST changes: -LIDOCAINE 1% INJ 20 ML 20 ML VIAL ONE
--- NOTE | 2018-12-29 12:11 | Diagnostic Imaging Report ---
PROCEDURE: US Abdomen, limited. TECHNIQUE: Multiple real-time grayscale images were obtained over the abdomen in various projections. INDICATION: Ascites. FINDINGS: Evaluation of all four quadrants of the abdomen was performed. There is moderate fluid in all four quadrants. Left lower quadrant was marked for paracentesis. IMPRESSION: Moderate ascites. Dictated by: Dictated on workstation # [id number]
[2018-12-29 12:16] LABS: INR 2.9 (0.8-1.4); PROTHROMBIN TIME PATIENT 30.4 SEC (12.2-14.7)
[2018-12-29 12:23] LABS: ALANINE AMINOTRANSFERASE < 6 U/L (0-55); ALBUMIN 3.6 GM/DL (3.2-4.5); ALKALINE PHOSPHATASE 89 U/L (40-136); BILIRUBIN,TOTAL 1.5 MG/DL (0.1-1.0); BUN/CREATININE RATIO 18; CALCIUM 8.5 MG/DL (8.5-10.1); CARBON DIOXIDE 32 MMOL/L (21-32); CHLORIDE 86 MMOL/L (98-107); CREATININE SERUM 3.61 MG/DL (0.60-1.30); GFR ESTIMATED 17; GLUCOSE 172 MG/DL (70-105); POTASSIUM 3.4 MMOL/L (3.6-5.0); SODIUM 134 MMOL/L (135-145); TOTAL PROTEIN 6.6 GM/DL (6.4-8.2)
== END ==
LOC: RAD 11:07
PROVIDERS: ATTEND Internal Medicine
DX: N18.3 Chronic kidney disease, stage 3 (moderate) (principal); R18.8 Other ascites
CPT/HCPCS: 36415; 76705; 80053; 85610

== ENCOUNTER → 2019-03-19 | Outpatient (CLI) | payer MEDICARE ==
--- NOTE | 2019-03-19 13:01 | Diagnostic Imaging Report ---
INDICATION: Pain and swelling to the right posterior elbow. TIME OF EXAMINATION: 12:51 PM. TECHNIQUE: Three views of the right elbow were obtained. FINDINGS: The alignment is normal. No fracture, dislocation, or effusion is seen. There is moderate soft tissue swelling about the posterior elbow. No soft tissue gas is identified. No bony destructive changes are seen. IMPRESSION: Posterior soft tissue swelling. No other significant abnormality is seen. Dictated by: Dictated on workstation # [id number]
== END ==
LOC: RAD 12:41
PROVIDERS: ATTEND Internal Medicine
DX: M10.021 Idiopathic gout, right elbow (principal)
CPT/HCPCS: 73080